=== PATIENT | female | born 1955 | race Caucasian/White ===

== ENCOUNTER 2018-01-13 01:00 | Outpatient (CLI) | payer BC, SELFPAY ==
--- NOTE | 2018-01-13 16:00 | DI.US_ITS ---
SYMPTOMS/DIAGNOSIS: NECK PROBLEM, M53.82, FAMILY H/O MARFAN SYNDROME, Z82.79, TINGLING IN RIGHT ARM, RIGHT NECK DISCOMFORT FEELS PULSATING CAROTID ULTRASOUND: There is mild bilateral intimal thickening. There is no significant plaque. No significant stenosis is visible. The velocity measurements are in the normal range. The vertebral arteries show antegrade flow. IMPRESSION: No significant internal carotid artery stenosis.
== END 2018-01-13 01:20 ==
PROVIDERS: PCP Family Medicine; Visit Provider Family Medicine
DX: M54.2 Cervicalgia (principal); M53.82 Other specified dorsopathies, cervical region; R20.2 Paresthesia of skin; Z82.79 Family history of other congenital malformations, deformations and chromosomal abnormalities
CPT/HCPCS: 93880

== ENCOUNTER 2018-04-17 17:11 | Emergency (ER) | payer BC, SELFPAY ==
[2018-04-17] VITALS (16 sets, daily range): BP systolic 130–147; BP diastolic 57–75; PULSE 60–92; RESP 1–26; O2SAT 96–100
--- NOTE | 2018-04-17 17:32 | DI.RAD_ITS ---
SYMPTOM/DIAGNOSIS: CHEST PAIN PA AND LATERAL CHEST: Comparison is made with 07/28/17. The heart size is normal. The aorta is normal in diameter. The lungs are mildly hyperinflated and there are mildly increased interstitial markings. No focal infiltrate, effusion or pulmonary edema is seen. Surgical clips are noted in the right upper quadrant. IMPRESSION: No acute abnormality.
[2018-04-17] MEDS: Mylanta Suspension 30 ML CUP (17:35)
[2018-04-17] MEDS: Lidocaine 2% Viscous 15 ML CUP (17:35)
--- NOTE | 2018-04-17 17:44 | ED.GENADUL_ITS ---
Medical Decision Making <Rodrick Greene DO - Last Filed: 04/18/18 08:17> This is a pleasant 63-year-old female with past medical history of asthma, and GERD who presents today for evaluation of reflux for the last 3 days worsening and culminating today, as well as asthma exacerbation for the last month, which she is on steroids as well as breathing treatments for at home. Patient has no history of cardiac disease, and she had a negative stress test this past summer. Results have been included. Her symptoms are nonexertional. She describes symptoms of severe burning sensation in her epigastric region, but an otherwise nontender abdomen. She also complains of burning all over her body, however there is no evidence of rash, lesions, or burn. We will treat with a GI cocktail as I do feel that there is a strong component of gastric ulcer involved here, however we will perform a cardiac workup to evaluate for a ny acute cardiac processes to the cause of her symptoms although I feel this very unlikely. Additionally the patient does have mild wheeze, and we will give breathing treatments here. She is already on steroids and so we will hold any additional steroids 7: 46pm Laboratory workup is benign, troponin within normal limits, white count normal, electrolytes normal, calcium is slightly low though, we will recommend outpatient calcium supplementation this may have caused the funny sensations that she is feeling. After GI cocktail the patient had complete resolution of her symptomatology for the burning sensation in her stomach and chest as well as her periphery. I feel her signs and symptoms are clinically consistent with a mild gastric ulcer. We will get a repeat troponin EKG, and if these are negative, I feel the patient be safely discharged home with close follow-up with a primary care provider. Signs and symptoms are inconsistent with a cardiac etiology at this time. Case will be signed out to my colleague Dr. Cale Sumner for final disposition and final evaluation of troponin EKG. EKG 17: 23 Rate 85, intervals normal, sinus rhythm, no ST elevations or depressions, no significant T wave inversions, no Q waves. <Cale Sumner MD - Last Filed: 04/17/18 21:04> Received signout from Dr. Greene. Repeat EKG reveals normal sinus rhythm, normal QRS, no ST segment elevation. Repeat troponin negative. Patient remains symptom-free. Likely GERD related to recent prednisone use. Discharge instructions as per Dr. Greene. She is improved and appropriate for discharge. HPI <Rodrick Greene, DO - Last Filed: 04/18/18 08:17> General Date/Time Provider Initiated Documentation: 04/17/18 17:22 . HPI Narrative: This is a 63-year-old female with a past medical history of multiple allergies, chronic kidney disease, asthma, who presents today for evaluation of a burning sensation/a [place] in my chest, as well as symptoms of I think my whole body is on fire. Of note the patient's body is definitely not on fire. She states that over the last month she has been dealing with an asthma exacerbation and is currently on oral steroids, and taking breathing treatments. This is been slowly improving, however today she noticed slightly worsening of her breathing, mild shortness of breath which she states is similar to her normal asthma. She denies any exertional component. Initially she does over the last 3 days she has had worsening of her regular reflux symptoms, culminating today with the calcaneal-like sensation in the center of her chest per the patient. She denies any arm neck or shoulder pain. She denies any chest heaviness. She denies any history of cardiac disease. She had a negative stress test this past summer. She denies any history of PE. Denies any other complaints at this time. No other modifying factors. Related Data Home Medications Medication Instructions Recorded Confirmed Probiotic 1 ea PO DAILY cap.sprink 07/24/15 04/17/18 multivitamin [Daily Multiple] 1 ea PO DAILY 07/24/15 04/17/18 omega-3 fatty acids-fish oil 1 ea PO DAILY 07/24/15 04/17/18 trazodone 50 mg PO DAILY tab-cap 07/24/15 04/17/18 Flovent HFA 2 puff INHALATION DAILY 01/19/16 04/17/18 fexofenadine [Renata Allergy] 180 mg PO DAILY 01/19/16 04/17/18 levalbuterol tartrate [Xopenex HFA] 2 puff INHALATION PRN PRN 01/19/16 04/17/18 turmeric root extract 1,000 mg PO DAILY 01/19/16 04/17/18 ondansetron 4 mg PO Q6H PRN #12 tabef 05/10/16 07/28/17 montelukast 10 mg PO DAILY 07/28/17 04/17/18 omeprazole 40 mg PO DAILY #30 cap 04/17/18 sucralfate [Carafate] 1 gm PO QACHS #30 tab 04/17/18 vitamin D3-vitamin K2 1 tab PO DAILY 04/17/18 04/17/18 Previous Rx's Medication Instructions Recorded ondansetron 4 mg PO Q6H PRN #12 tabef 05/10/16 omeprazole 40 mg PO DAILY #30 cap 04/17/18 sucralfate [Carafate] 1 gm PO QACHS #30 tab 04/17/18 Allergies Allergy/AdvReac Type Severity Reaction Status Date / Time tree and shrub pollen Allergy Unverified 04/17/18 18:40 gluten AdvReac Severe Swelling/Ed Verified 04/17/18 18:40 wilson lactase [From Dairy Aid] AdvReac Severe Swelling/Ed Verified 04/17/18 18:40 wilson soy AdvReac Severe Swelling/Ed Verified 04/17/18 18:40 wilson cigarette smoke AdvReac Mild Wheezing Verified 04/17/18 18:40 minerals [From Enviro Stress] AdvReac Mild Wheezing Verified 04/17/18 18:40 mold AdvReac Mild Wheezing Verified 04/17/18 18:40 Penicillins AdvReac Mild Skin Rash Verified 04/17/18 18:40 vitamin B complex and C AdvReac Mild Wheezing Verified 04/17/18 18:40 [From Enviro Stress] vitamin E (d-alpha AdvReac Mild Wheezing Verified 04/17/18 18:40 tocopherol) [From Enviro Stress] grass Allergy Uncoded 04/17/18 18:40 antidepressents AdvReac Severe Swelling/Ed Uncoded 04/17/18 18:40 wilson chocolate liquor/dark AdvReac Severe Anaphylaxsi Uncoded 04/17/18 18:40 s friuts seeds AdvReac Severe Swelling/Ed Uncoded 04/17/18 18:40 wilson leguimes AdvReac Severe Anaphylaxsi Uncoded 04/17/18 18:40 s muscle relaxaten AdvReac Severe Dizziness/L Uncoded 04/17/18 18:40 ightheade nuts AdvReac Severe Anaphylaxsi Uncoded 04/17/18 18:40 s peanuts AdvReac Severe Anaphylaxsi Uncoded 04/17/18 18:40 s pig meats AdvReac Severe Anaphylaxsi Uncoded 04/17/18 18:40 s pitted fruits AdvReac Severe Anaphylaxsi Uncoded 04/17/18 18:40 s seeds AdvReac Severe Swelling/Ed Uncoded 04/17/18 18:40 wilson smoked meats AdvReac Severe Anaphylaxsi Uncoded 04/17/18 18:40 s pain meds AdvReac Intermediate Nausea Uncoded 04/17/18 18:40 animals AdvReac Mild Wheezing Uncoded 04/17/18 18:40 dust AdvReac Mild Wheezing Uncoded 04/17/18 18:40 mildew AdvReac Mild Wheezing Uncoded 04/17/18 18:40 General Stated Complaint: Chest Pain HUBERT: 2 Review of Systems <Rodrick Greene - Last Filed: 04/18/18 08:17> Review of Systems All systems reviewed & are unremarkable except as noted in HPI and below PFSH <Rodrick Greene - Last Filed: 04/18/18 08:17> Social History Smoking and Tabacco status: Never Exam <Rodrickangela Greene - Last Filed: 04/18/18 08:17> Narrative Exam Narrative: 1.Const: Well-nourished, Well-developed, appearing stated age 2.Eyes: PERRL, no conjunctival injection, and symmetrical lids. 3.ENT: Atraumatic external nose and ears. Moist MM. Neck: Symmetric, trachea midline, No thyromegaly. 4.CVS: +S1/S2, No murmurs or gallops. Peripheral pulses 2+ and equal in all extremities. Brisk capillary refill in all extremities. 5.RESP: Unlabored respiratory effort. Mild wheeze bilaterally. No rhonchi or rales. 6.GI: Soft, Nontender/Nondistended, No hepatosplenomegaly. No guarding or rebound. 7.MSK: Normocephalic/Atraumatic, Extremities w/o deformity or ttp No cyanosis or clubbing, Normal movement of all extremities 8.Skin: Warm, Dry. No rashes or lesions. 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 Sensation grossly intact, no focal neurologic deficits. 10.Psych: (AAO) x3. Appropriate mood and affect Course <Rodrick Greene DO - Last Filed: 04/18/18 08:17> Vital Signs Pulse 60 04/17/18 17:21 Respiratory Rate 16 04/17/18 17:21 Pulse Oximetry 97 04/17/18 17:21 Pulse 60 04/17/18 17:21 Respiratory Rate 16 04/17/18 17:21 Pulse Oximetry 97 04/17/18 17:21 Oxygen Delivery Method Room Air 04/17/18 17:21 Oxygen Flow Rate 0 04/17/18 17:21 Sign Out <Rodrick Greene DO - Last Filed: 04/18/18 08:17> Sign Out Data: Sign Out Comment: Pending repeat troponin EKG and then dispo Last updated by Rodrick Greene DO at 04/17/18 20:01
[2018-04-17] MEDS: Albuterol 2.5 MG/3 ML INH SOLN VIAL (17:46)
[2018-04-17] MEDS: Normal Saline 1,000 ML 1000 ML IV (17:47)
[2018-04-17 18:15] LABS: Abs Immature Grans 0.07 k/cumm (0.0-0.09); Absolute Basophil Count 0.01 k/cumm (0.0-0.2); Absolute Lymphocyte Count 0.67 k/cumm (1.2-3.4); Absolute Monocyte Count 0.42 k/cumm (0.11-0.7); Absolute Neutrophil Count 5.55 k/cumm (1.2-6.7); Basophils % 0.1; HCT 36.3 % (36.0-46.0); Mean Corp. HGB Concentration 33.1 g/dL (32.0-36.0); Mean Corpuscular Hemoglobin 29.9 pg (27.0-33.0); Mean Corpuscular Volume 90.5 fL (80-95); Mean Platelet Volume 10.7 fL (8.0-11.0); Monocytes % 6.3; Neutrophils % 82.6; Platelet Count 220 x1000/uL (130-400); RBC 4.01 m/cumm (4.00-5.20); RBC Distribution Width 14.1 % (11.7-14.6); White Blood Cell Count 6.72 k/cumm (4.4-10.8)
[2018-04-17 18:37] LABS: ALT 26 U/L (12-78); AST 17 U/L (15-37); Albumin 2.9 g/dL (3.4-5.0); Alkaline Phosphatase 69 U/L (46-116); Anion Gap 10.1 mmol/L (3-11); BUN 20 mg/dL (7-18); Bilirubin, Total 0.2 mg/dL (0.2-1.0); CO2 25.9 mmol/L (21.0-32.0); CREATININE 1.25 mg/dL (0.55-1.02); Calcium 8.3 mg/dL (8.5-10.1); Chloride 105 mmol/L (98-107); Estimated GFR 43.43 (mL/min/1.73m2); Glucose 129 mg/dL (70-100); Sodium 141 mmol/L (136-145); TSH (W/Ref FT4) 0.55 uIU/mL (0.358-3.74); Troponin I 0.03 ng/mL (0.00-0.06)
--- NOTE | 2018-04-17 19:00 | DI.VRAD_ITS ---
EXAM: XR Chest, 2 Views EXAM DATE/TIME: 04/17/2018 5:34 PM CLINICAL HISTORY: 63 years old, female; Signs and symptoms; Other: Chest pain, gerd TECHNIQUE: XR of the chest, 2 views. COMPARISON: CR CHEST 2 VIEWS PA,LAT 07/28/2017 3:31 PM FINDINGS: Lungs: Mild hyperinflation with no airspace consolidation. Pleural space: No pleural effusion. No pneumothorax. Heart/Mediastinum: No cardiomegaly. Upper abdomen: Right upper quadrant clips, probable cholecystectomy. Bones/joints: No acute fracture. IMPRESSION: Mild hyperinflation with no airspace consolidation. Dictated and Authenticated by: Zita Cummins MD. Ordering:PARAG Mensah MD
[2018-04-17 20:44] LABS: Troponin I < 0.02 ng/mL (0.00-0.06)
[2018-04-17] MEDS: Sucralfate 1 GM TAB PO (21:12)
== END 2018-04-17 21:15 | disposition home or self-care (01) ==
PROVIDERS: Student in an Organized Health Care Education/Training Program; Emergency Provider Emergency Medicine; PCP Family Medicine
DX: J45.901 Unspecified asthma with (acute) exacerbation (principal); K21.9 Gastro-esophageal reflux disease without esophagitis; R07.9 Chest pain, unspecified
CPT/HCPCS: 36415; 80053; 93005; 96360; 99285; 71046; 83735; 84443; 84484; 85025; 93010; J7613

== ENCOUNTER 2018-04-28 14:17 | Emergency (ER) | payer BC, SELFPAY ==
[2018-04-28 14:23] VITALS: BP 143/70; PULSE 108; RESP 24; TEMP 36.6; O2SAT 100
--- NOTE | 2018-04-28 14:37 | W.ED.GENAD ---
Discharge Plan Disposition Patient Disposition: HOME Condition: Improving Discharge Details Chief Complaint: Nausea/Vomit/Diar Clinical Impression: Gastroenteritis Primary Care Provider: Kaylene Pinedo V ED Provider: Cale Sumner Home Meds and New Rx's Prescriptions: New ondansetron HCl [Zofran] 4 mg tablet 4 mg PO QID PRN (Reason: nausea and vomiting) Qty: 10 RF: 0 Continued multivitamin [Daily Multiple] 1 EACH tablet 1 ea PO DAILY RF: 0 trazodone 50 MG tablet 50 mg PO DAILY RF: 0 omega-3 fatty acids-fish oil 1 EACH capsule 1 ea PO DAILY RF: 0 fexofenadine [Renata Allergy] 180 MG tablet 180 mg PO DAILY RF: 0 levalbuterol tartrate [Xopenex HFA] 200 PUFF HFA aerosol inhaler 2 puff Inhalation PRN PRNRF: 0 turmeric root extract 500 MG capsule 1,000 mg PO DAILY RF: 0 vitamin D3-vitamin K2 5,500-200 unit-mcg Tablet 1 tab PO DAILY RF: 0 sucralfate [Carafate] 1 gram tablet 1 gm PO QACHS Qty: 30 RF: 0 omeprazole 40 mg capsule,delayed release(DR/EC) 40 mg PO DAILY Qty: 30 RF: 0 prednisone 10 mg Tablet 10 mg PO DAILY RF: 0 Symbicort 160-4.5 mcg/actuation Hfa Aerosol Inhaler 2 puff INHALATION BID RF: 0 Spiriva Respimat 2.5 mcg/actuation Mist 2 puff INHALATION DAILY RF: 0 montelukast 10 MG tablet 10 mg PO DAILY RF: 0 Discharge Instructions Instructions: Gastroenteritis (ED) Additional Instructions: Small, frequent sips of fluids to maintain hydration. Zofran, as prescribed, as needed for nausea. Return if you develop a fever, increasing discomfort, or any other acute concern Follow-up with regular doctor if not improving in 5 days time. Discharge Data Discharge Date/Time-TO BE ENTERED AT DEPARTURE: 04/28/18 16:56 Medical Decision Making 63-year-old female presents from home with numerous episodes of nonbilious, nonbloody emesis at home this morning associated with intermittent cramping left lower quadrant abdominal pain. She is afebrile and well-appearing, slightly dehydrated in appearance. She has had minimal left lower quadrant abdominal tenderness. Differential diagnosis includes gastroenteritis, colitis, enteritis, diverticulitis. IV placed, patient given fluids and antiemetic. Referred for laboratory testing and CT scan. Labs reveal elevated white blood cell count of 13, mild hypokalemia of 3.2. Mild dehydration with BUN [address] reveals evidence of enteritis and colitis, no evidence of abscess or bowel obstruction. Lab Data Lab results reviewed: Yes I reviewed the patient's lab results. Laboratory Results - last 24 hr 04/28/18 04/28/18 04/28/18 14:33 14:33 14:33 WBC 13.73 H RBC 4.84 Hgb 14.5 Hct 43.7 MCV 90.3 MCH 30.0 MCHC 33.2 RDW 14.5 Plt Count 236 MPV 11.3 H Immature Gran % 0.8 Neutrophils % 85.4 Lymphocytes % 8.0 Monocytes % 4.7 Eosinophils % 1.0 Basophils % 0.1 Absolute Neutrophils 11.73 H Absolute Lymphocytes 1.10 L Absolute Monocytes 0.65 Absolute Eosinophils 0.14 Absolute Basophils 0.01 Sodium 141 Potassium 3.2 L Chloride 102 Carbon Dioxide 27.9 Anion Gap 11.1 H BUN 24 H Creatinine 1.38 H Estimated GFR/1.73 m2 38.74 Glucose 135 H Calcium 9.1 Magnesium 2.0 Total Bilirubin 0.9 AST 19 ALT 29 Alkaline Phosphatase 83 Troponin I < 0.02 Total Protein 7.4 Albumin 4.0 Lipase 177 HPI General Mode of arrival: ambulatory. Date/Time Provider Initiated Documentation: 04/28/18 14:18. Limitations to Documentation: no limitations. Information obtained by: patient. History of Present Illness 63 year old F presents to the emergency department with the chief complaint of Nausea and vomiting times, described as moderate, Quality is described as other (Cramping), and is localized to the abdomen. Patient reports no radiation. Patient started experiencing this hour(s) and it has been intermittent. No relieving factors improve symptom(s), No exacerbating factors reported . Patient notes loss of appetite and nausea/vomiting; denies fever/chills. Patient did receive the following treatments prior to arrival, none Related Data Home Medications Medication Instructions Recorded Confirmed multivitamin [Daily Multiple] 1 ea PO DAILY 07/24/15 04/28/18 omega-3 fatty acids-fish oil 1 ea PO DAILY 07/24/15 04/28/18 trazodone 50 mg PO DAILY tab-cap 07/24/15 04/28/18 fexofenadine [Renata Allergy] 180 mg PO DAILY 01/19/16 04/28/18 levalbuterol tartrate [Xopenex HFA] 2 puff INHALATION PRN PRN 01/19/16 04/28/18 turmeric root extract 1,000 mg PO DAILY 01/19/16 04/28/18 montelukast 10 mg PO DAILY 07/28/17 04/28/18 omeprazole 40 mg PO DAILY #30 cap 04/17/18 04/28/18 sucralfate [Carafate] 1 gm PO QACHS #30 tab 04/17/18 04/28/18 vitamin D3-vitamin K2 1 tab PO DAILY 04/17/18 04/28/18 Spiriva Respimat 2 puff INHALATION DAILY 04/28/18 04/28/18 Symbicort 2 puff INHALATION BID 04/28/18 04/28/18 ondansetron HCl [Zofran] 4 mg PO QID PRN #10 tab 04/28/18 prednisone 10 mg PO DAILY 04/28/18 04/28/18 Previous Rx's Medication Instructions Recorded omeprazole 40 mg PO DAILY #30 cap 04/17/18 sucralfate [Carafate] 1 gm PO QACHS #30 tab 04/17/18 ondansetron HCl [Zofran] 4 mg PO QID PRN #10 tab 04/28/18 Allergies Allergy/AdvReac Type Severity Reaction Status Date / Time tree and shrub pollen Allergy Unverified 04/28/18 14:44 gluten AdvReac Severe Swelling/Ed Verified 04/28/18 14:44 wilson lactase [From Dairy Aid] AdvReac Severe Swelling/Ed Verified 04/28/18 14:44 wilson soy AdvReac Severe Swelling/Ed Verified 04/28/18 14:44 wilson cigarette smoke AdvReac Mild Wheezing Verified 04/28/18 14:44 minerals [From Enviro Stress] AdvReac Mild Wheezing Verified 04/28/18 14:44 mold AdvReac Mild Wheezing Verified 04/28/18 14:44 Penicillins AdvReac Mild Skin Rash Verified 04/28/18 14:44 vitamin B complex and C AdvReac Mild Wheezing Verified 04/28/18 14:44 [From Enviro Stress] vitamin E (d-alpha AdvReac Mild Wheezing Verified 04/28/18 14:44 tocopherol) [From Enviro Stress] grass Allergy Uncoded 04/28/18 14:44 antidepressents AdvReac Severe Swelling/Ed Uncoded 04/28/18 14:44 wilson chocolate liquor/dark AdvReac Severe Anaphylaxsi Uncoded 04/28/18 14:44 s friuts seeds AdvReac Severe Swelling/Ed Uncoded 04/28/18 14:44 wilson leguimes AdvReac Severe Anaphylaxsi Uncoded 04/28/18 14:44 s muscle relaxaten AdvReac Severe Dizziness/L Uncoded 04/28/18 14:44 ightheade nuts AdvReac Severe Anaphylaxsi Uncoded 04/28/18 14:44 s peanuts AdvReac Severe Anaphylaxsi Uncoded 04/28/18 14:44 s pig meats AdvReac Severe Anaphylaxsi Uncoded 04/28/18 14:44 s pitted fruits AdvReac Severe Anaphylaxsi Uncoded 04/28/18 14:44 s seeds AdvReac Severe Swelling/Ed Uncoded 04/28/18 14:44 wilson smoked meats AdvReac Severe Anaphylaxsi Uncoded 04/28/18 14:44 s pain meds AdvReac Intermediate Nausea Uncoded 04/28/18 14:44 animals AdvReac Mild Wheezing Uncoded 04/28/18 14:44 dust AdvReac Mild Wheezing Uncoded 04/28/18 14:44 mildew AdvReac Mild Wheezing Uncoded 04/28/18 14:44 General Stated Complaint: Nausea/Vomit/Diar HUBERT: 3 Review of Systems Review of Systems 6 systems reviewed and otherwise negative [facility] Social History Smoking and Tabacco status: Never Exam Narrative Exam Narrative: GEN: awake, alert, oriented 3. Pleasant, well groomed, interactive. HEAD: Normocephalic, atraumatic ENT: Mucous membranes dry, oropharynx unremarkable, External ear exam unremarkable EYES: PERRL, EOMI NECK: Full ROM, no PIYUSH, no menigismus CHEST/RESP: Nontender, clear to auscultation bilateral, no wheeze/rhonchi/rales CARDIOVASCULAR: RRR, no murmur, rub jeana. 2+ Rad pulse bilateral ABDOMEN: Soft, discrete tenderness left lower quadrant without rebound or guarding, no mass. +Bowel sounds. EXT: Full ROM, no edema, no rash Neuro: Grossly normal neurologic exam, conversant, interactive. Psych: Speech fluent, thoughts congruent, affect normal Course Vital Signs Temperature 36.6 C 04/28/18 14:23 Pulse 108 H 04/28/18 14:23 Respiratory Rate 24 04/28/18 14:23 Blood Pressure 143/70 H 04/28/18 14:23 Pulse Oximetry 100 04/28/18 14:23 Temperature 36.6 C 04/28/18 14:23 Temperature Source Temporal Artery Scan 04/28/18 14:23 Pulse 108 H 04/28/18 14:23 Respiratory Rate 24 04/28/18 14:23 Blood Pressure 143/70 H 04/28/18 14:23 Blood Pressure Position Sitting 04/28/18 14:23 Pulse Oximetry 100 04/28/18 14:23 Oxygen Delivery Method Room Air 04/28/18 14:23 Oxygen Flow Rate 0 04/28/18 14:23 Pain Level 7 04/28/18 14:23
[2018-04-28] MEDS: Ondansetron 4 MG/2 ML VIAL IVP (14:40)
[2018-04-28] MEDS: Normal Saline 1,000 ML 1000 ML IV (14:40)
[2018-04-28 14:49] LABS: Abs Immature Grans 0.11 k/cumm (0.0-0.09); Absolute Eosinophil Count 0.14 k/cumm (0.0-0.7); Absolute Monocyte Count 0.65 k/cumm (0.11-0.7); Basophils % 0.1; HCT 43.7 % (36.0-46.0); HGB 14.5 g/dL (12.0-15.5); Immature Grans % 0.8; Mean Corp. HGB Concentration 33.2 g/dL (32.0-36.0); Mean Corpuscular Volume 90.3 fL (80-95); Mean Platelet Volume 11.3 fL (8.0-11.0); Monocytes % 4.7; Neutrophils % 85.4; Platelet Count 236 x1000/uL (130-400); RBC 4.84 m/cumm (4.00-5.20); RBC Distribution Width 14.5 % (11.7-14.6); White Blood Cell Count 13.73 k/cumm (4.4-10.8)
[2018-04-28 14:53] VITALS: TEMP 36.8
[2018-04-28 14:53] LABS: Absolute Basophil Count 0.01 k/cumm (0.0-0.2); Absolute Neutrophil Count 11.73 k/cumm (1.2-6.7)
[2018-04-28 14:56] LABS: Lipase 177 U/L (73-393)
--- NOTE | 2018-04-28 14:56 | DI.CT_ITS ---
SYMPTOMS/DIAGNOSIS: LEFT LOWER QUADRANT PAIN, VOMITING CT SCAN OF THE ABDOMEN AND PELVIS: Noncontrast examination was performed. No acute findings are seen in the lung bases. There is a moderate hiatal hernia. The noncontrast examination does limit examination of the abdominal and pelvic organs. The unenhanced liver, spleen, pancreas and adrenal glands are unremarkable. The patient is status post cholecystectomy. No biliary ductal dilatation is seen. There is no nephrolithiasis or hydronephrosis. There is again seen a hypodense lesion in the mid pole of the right kidney, most suggestive of a cyst. The urinary bladder is intact. The reproductive organs are unremarkable as visualized. The abdominal aorta is of normal caliber with mild atherosclerosis. There are mildly dilated loops of small bowel in the left abdomen with a question of mild bowel wall thickening. This may represent an ileus or mild enteritis. There is a moderate amount of stool in the colon, particularly the rectosigmoid colon. There is mild thickening of the wall at the rectosigmoid junction and mild increased attenuation in the surrounding fat and inflammatory infectious colitis should be considered. No evidence of abdominal or pelvic adenopathy, ascites or pneumoperitoneum is present. Degenerative changes are seen in the spine. IMPRESSION: 1. Findings suspicious for an inflammatory infectious colitis at the rectosigmoid junction. 2. Ileus versus a mild enteritis involving the small bowel in the left upper quadrant. The findings were discussed with Dr. Sumner of the Emergency Department on the date of the examination.
[2018-04-28 15:05] LABS: ALT 29 U/L (12-78); AST 19 U/L (15-37); Alkaline Phosphatase 83 U/L (46-116); Anion Gap 11.1 mmol/L (3-11); BUN 24 mg/dL (7-18); Bilirubin, Total 0.9 mg/dL (0.2-1.0); CO2 27.9 mmol/L (21.0-32.0); CREATININE 1.38 mg/dL (0.55-1.02); Calcium 9.1 mg/dL (8.5-10.1); Chloride 102 mmol/L (98-107); Estimated GFR 38.74 (mL/min/1.73m2); Glucose 135 mg/dL (70-100); Potassium 3.2 mmol/L (3.5-5.1); Sodium 141 mmol/L (136-145); Total Protein 7.4 g/dL (6.4-8.2); Troponin I < 0.02 ng/mL (0.00-0.06)
[2018-04-28 15:08] LABS: Bilirubin Negative (Negative); Blood Trace-intact (Negative); Clarity Clear; Glucose Negative (Negative); Ketones 15 mg/dL (Negative); Leukocyte Esterase Negative (Negative); Nitrite Negative (Negative); Specific Gravity 1.015 (1.005-1.025); Urobilinogen 0.2 EU/dL (Up TO 0.2); pH 8.5 (5-8)
[2018-04-28 15:21] LABS: Epithelial Cells Many HPF (Negative)
[2018-04-28 15:22] LABS: WBC 0-2 HPF (0-5)
[2018-04-28 15:23] LABS: Bacteria Negative HPF (Negative); C & S Indicated? No; Casts Negative LPF (Negative); Crystals Negative HPF (Negative); Mucus Negative (Negative)
[2018-04-28 16:49] VITALS: BP 135/66; PULSE 88; RESP 12; TEMP 37.8; O2SAT 99
== END 2018-04-28 16:56 | disposition home or self-care (01) ==
PROVIDERS: Emergency Provider Emergency Medicine; PCP Family Medicine
DX: K52.9 Noninfective gastroenteritis and colitis, unspecified (principal)
CPT/HCPCS: 36415; 80053; 83690; 96361; 96374; 99284; 74176; 81003; 81015; 83735; 84484; 85025; 99283; J2405

== ENCOUNTER 2018-05-13 17:06 | Outpatient (REF) | payer BC, SELFPAY ==
[2018-05-13 20:37] LABS: Abs Immature Grans 0.01 k/cumm (0.0-0.09); Absolute Basophil Count 0.04 k/cumm (0.0-0.2); Absolute Eosinophil Count 0.17 k/cumm (0.0-0.7); Absolute Lymphocyte Count 1.73 k/cumm (1.2-3.4); Absolute Monocyte Count 0.63 k/cumm (0.11-0.7); Absolute Neutrophil Count 2.25 k/cumm (1.2-6.7); Basophils % 0.8; Eosinophils % 3.5; HCT 37.8 % (36.0-46.0); HGB 12.5 g/dL (12.0-15.5); Immature Grans % 0.2; Lymphocytes % 35.8; Mean Corp. HGB Concentration 33.1 g/dL (32.0-36.0); Mean Corpuscular Hemoglobin 29.7 pg (27.0-33.0); Mean Corpuscular Volume 89.8 fL (80-95); Neutrophils % 46.7; Platelet Count 207 x1000/uL (130-400); RBC 4.21 m/cumm (4.00-5.20); RBC Distribution Width 13.5 % (11.7-14.6); White Blood Cell Count 4.83 k/cumm (4.4-10.8)
[2018-05-13 21:50] LABS: ALT 27 U/L (12-78); AST 18 U/L (15-37); Albumin 3.6 g/dL (3.4-5.0); Alkaline Phosphatase 74 U/L (46-116); Anion Gap 13.8 mmol/L (3-11); BUN 17 mg/dL (7-18); Bilirubin, Total 0.5 mg/dL (0.2-1.0); CO2 22.2 mmol/L (21.0-32.0); CREATININE 1.26 mg/dL (0.55-1.02); Chloride 107 mmol/L (98-107); Estimated GFR 43.03 (mL/min/1.73m2); Glucose 83 mg/dL (70-100); Potassium 3.4 mmol/L (3.5-5.1); Sodium 143 mmol/L (136-145); Total Protein 6.3 g/dL (6.4-8.2)
== END 2018-05-13 17:26 ==
LOC: NCHCN 17:06
PROVIDERS: PCP Family Medicine; Visit Provider Physician Assistant Medical
DX: R19.7 Diarrhea, unspecified (principal)
CPT/HCPCS: 80053; 85025

== ENCOUNTER 2018-05-21 21:00 | Outpatient (REF) | payer BC, SELFPAY ==
[2018-05-26 12:18] LABS: Helicobacter pylori Ag, Feces Negative (NEGAT)
== END 2018-05-21 21:20 ==
LOC: NCHCN 21:00
PROVIDERS: PCP Family Medicine; Visit Provider Physician Assistant Medical
DX: K21.9 Gastro-esophageal reflux disease without esophagitis (principal)
CPT/HCPCS: 87338

== ENCOUNTER 2018-06-23 00:51 | Outpatient (CLI) | payer BC, SELFPAY ==
--- NOTE | 2018-06-23 08:45 | DI.NM_ITS ---
SYMPTOMS/DIAGNOSIS: RIGHT LOWER QUADRANT PAIN, R10.31, R10.32, GASTROINTESTINAL HEMORRHAGE, K92.2, GASTROESOPHAGEAL REFLUX DISEASE, K21.9 GASTRIC EMPTYING EXAMINATION: The patient received 1.0 mCi of technetium labelled sulfur colloid in eggs according to protocol. Examination was performed according to protocol. At one hour, the residual was 79.7%. At two hours, gastric residual was 28.1%. At four hours, gastric residual was 2.4%. These are within normal limits. IMPRESSION: Normal gastric emptying examination.
== END 2018-06-23 01:11 ==
PROVIDERS: PCP Family Medicine; Visit Provider Internal Medicine Gastroenterology
DX: R10.31 Right lower quadrant pain (principal); K92.2 Gastrointestinal hemorrhage, unspecified; K21.9 Gastro-esophageal reflux disease without esophagitis
CPT/HCPCS: 78265

== ENCOUNTER 2018-07-22 16:04 | Emergency (ER) | payer BC, SELFPAY ==
[2018-07-22 16:23] VITALS: BP 142/66; PULSE 70; RESP 16; TEMP 36.6; O2SAT 100
--- NOTE | 2018-07-22 16:28 | DI.RAD_ITS ---
SYMPTOM/DIAGNOSIS: PAIN, S/P STUBBING HER TOE LEFT FOOT: Three views. Comparison 05/10/16 There is a nondisplaced fracture involving the neck of the proximal phalanx of the left 5th toe. There is slight dorsal angulation of the fracture seen on the lateral view. No other fracture or dislocation is seen. There is soft tissue swelling of the left 5th toe IMPRESSION: Nondisplaced fracture involving the proximal phalanx of the left 5th toe. The findings were discussed with Dr. Herron at 10 a.m. on 07/23/18
--- NOTE | 2018-07-22 16:30 | W.ED.GENAD ---
Discharge Plan Disposition Patient Disposition: HOME Condition: Stable Discharge Details Chief Complaint: Orthopedic Clinical Impression: Contusion of fifth toe, right Primary Care Provider: Kaylene Pinedo V ED Provider: Lonnie Herron Home Meds and New Rx's Prescriptions: No Action multivitamin [Daily Multiple] 1 EACH tablet 1 ea PO DAILY RF: 0 trazodone 50 MG tablet 50 mg PO DAILY RF: 0 omega-3 fatty acids-fish oil 1 EACH capsule 1 ea PO DAILY RF: 0 fexofenadine [Renata Allergy] 180 MG tablet 180 mg PO DAILY RF: 0 levalbuterol tartrate [Xopenex HFA] 200 PUFF HFA aerosol inhaler 2 puff Inhalation PRN PRNRF: 0 turmeric root extract 500 MG capsule 1,000 mg PO DAILY RF: 0 vitamin D3-vitamin K2 5,500-200 unit-mcg Tablet 1 tab PO DAILY RF: 0 sucralfate [Carafate] 1 gram tablet 1 gm PO QACHS Qty: 30 RF: 0 omeprazole 40 mg capsule,delayed release(DR/EC) 40 mg PO DAILY Qty: 30 RF: 0 prednisone 10 mg Tablet 10 mg PO DAILY RF: 0 Symbicort 160-4.5 mcg/actuation Hfa Aerosol Inhaler 2 puff INHALATION BID RF: 0 Spiriva Respimat 2.5 mcg/actuation Mist 2 puff INHALATION DAILY RF: 0 ondansetron HCl [Zofran] 4 mg tablet 4 mg PO QID PRN (Reason: nausea and vomiting) Qty: 10 RF: 0 montelukast 10 MG tablet 10 mg PO DAILY RF: 0 Discharge Instructions Instructions: Foot Contusion (ED) Medical Decision Making Pt states she hit her right foot on a table earlier and has pain with swelling of the right little toe. Denies loc or hitting head. NO pain in ankle or mid foot. Will xray to eval for fx xray negative, no new pain, will /dc home Differential Diagnosis sprain, strain, contusion, fx Imaging Data Radiologic Study: Attestation: I personally reviewed and interpreted this imaging study as follows: Imaging: X-Ray Radiologist's impression: IMPRESSION: No acute fracture HPI General Mode of arrival: ambulatory. Date/Time Provider Initiated Documentation: 07/22/18 16:25. Limitations to Documentation: no limitations. Information obtained by: patient. History of Present Illness 63 year old F presents to the emergency department with the chief complaint of right little toe pain, described as moderate, Quality is described as aching, and is localized to the right and lower extremity. Patient reports no radiation. Patient started experiencing this hour(s) (1) and it has been constant. Rest improves symptom(s), Movement worsens symptoms . Patient notes no other symptoms.. Patient did receive the following treatments prior to arrival, none Related Data Home Medications Medication Instructions Recorded Confirmed multivitamin [Daily Multiple] 1 ea PO DAILY 07/24/15 07/22/18 omega-3 fatty acids-fish oil 1 ea PO DAILY 07/24/15 07/22/18 trazodone 50 mg PO DAILY tab-cap 07/24/15 07/22/18 fexofenadine [Renata Allergy] 180 mg PO DAILY 01/19/16 07/22/18 levalbuterol tartrate [Xopenex HFA] 2 puff INHALATION PRN PRN 01/19/16 07/22/18 turmeric root extract 1,000 mg PO DAILY 01/19/16 07/22/18 montelukast 10 mg PO DAILY 07/28/17 07/22/18 omeprazole 40 mg PO DAILY #30 cap 04/17/18 07/22/18 sucralfate [Carafate] 1 gm PO QACHS #30 tab 04/17/18 07/22/18 vitamin D3-vitamin K2 1 tab PO DAILY 04/17/18 07/22/18 Spiriva Respimat 2 puff INHALATION DAILY 04/28/18 07/22/18 Symbicort 2 puff INHALATION BID 04/28/18 07/22/18 ondansetron HCl [Zofran] 4 mg PO QID PRN #10 tab 04/28/18 07/22/18 prednisone 10 mg PO DAILY 04/28/18 07/22/18 Previous Rx's Medication Instructions Recorded omeprazole 40 mg PO DAILY #30 cap 04/17/18 sucralfate [Carafate] 1 gm PO QACHS #30 tab 04/17/18 ondansetron HCl [Zofran] 4 mg PO QID PRN #10 tab 04/28/18 Allergies Allergy/AdvReac Type Severity Reaction Status Date / Time tree and shrub pollen Allergy Unverified 07/22/18 16:25 gluten AdvReac Severe Swelling/Ed Verified 07/22/18 16:25 wilson lactase [From Dairy Aid] AdvReac Severe Swelling/Ed Verified 07/22/18 16:25 wilson soy AdvReac Severe Swelling/Ed Verified 07/22/18 16:25 wilson cigarette smoke AdvReac Mild Wheezing Verified 07/22/18 16:25 minerals [From Enviro Stress] AdvReac Mild Wheezing Verified 07/22/18 16:25 mold AdvReac Mild Wheezing Verified 07/22/18 16:25 Penicillins AdvReac Mild Skin Rash Verified 07/22/18 16:25 vitamin B complex and C AdvReac Mild Wheezing Verified 07/22/18 16:25 [From Enviro Stress] vitamin E (d-alpha AdvReac Mild Wheezing Verified 07/22/18 16:25 tocopherol) [From Enviro Stress] grass Allergy Uncoded 07/22/18 16:25 antidepressents AdvReac Severe Swelling/Ed Uncoded 07/22/18 16:25 wilson chocolate liquor/dark AdvReac Severe Anaphylaxsi Uncoded 07/22/18 16:25 s friuts seeds AdvReac Severe Swelling/Ed Uncoded 07/22/18 16:25 wilson leguimes AdvReac Severe Anaphylaxsi Uncoded 07/22/18 16:25 s muscle relaxaten AdvReac Severe Dizziness/L Uncoded 07/22/18 16:25 ightheade nuts AdvReac Severe Anaphylaxsi Uncoded 07/22/18 16:25 s peanuts AdvReac Severe Anaphylaxsi Uncoded 07/22/18 16:25 s pig meats AdvReac Severe Anaphylaxsi Uncoded 07/22/18 16:25 s pitted fruits AdvReac Severe Anaphylaxsi Uncoded 07/22/18 16:25 s seeds AdvReac Severe Swelling/Ed Uncoded 07/22/18 16:25 wilson smoked meats AdvReac Severe Anaphylaxsi Uncoded 07/22/18 16:25 s pain meds AdvReac Intermediate Nausea Uncoded 07/22/18 16:25 animals AdvReac Mild Wheezing Uncoded 07/22/18 16:25 dust AdvReac Mild Wheezing Uncoded 07/22/18 16:25 mildew AdvReac Mild Wheezing Uncoded 07/22/18 16:25 General Stated Complaint: Orthopedic HUBERT: 4 Review of Systems Review of Systems All systems reviewed & are unremarkable except as noted in HPI and below Constitutional Denies chills, Denies fever(s) and Denies weakness Cardiovascular Denies chest pain and Denies dyspnea Respiratory Denies cough and Denies dyspnea Gastrointestinal Denies abdominal pain, Denies nausea and Denies vomiting Genitourinary Denies dysuria Musculoskeletal Denies joint swelling Integumentary/Breasts Denies rash Neurologic Denies weakness [facility] Social History Smoking/Tobacco Use Status: Never Drug use: Never Do you feel safe in your relationship?: Yes Exam Const General: no acute distress Orientation: alert HENMT Head: normal to inspection Ears: external ears normal General nose exam: external nose normal Mouth: moist mucous membranes Eyes General: appearance normal, both eyes and all related structures Neck Neck: normal visual inspection Resp Effort & Inspection: normal respiratory effort and able to speak in complete sentences Cardio Rate: regular rate Skin General skin exam: no rashes or lesions noted Neuro General: alert and oriented x3 Extrem General: normal capillary refill Psych Mental Status: mental status grossly normal Course Vital Signs Temperature 36.6 C 07/22/18 16:23 Pulse 70 07/22/18 16:23 Respiratory Rate 16 07/22/18 16:23 Blood Pressure 142/66 H 07/22/18 16:23 Pulse Oximetry 100 07/22/18 16:23 Temperature 36.6 C 07/22/18 16:23 Temperature Source Skin 07/22/18 16:23 Pulse 70 07/22/18 16:23 Respiratory Rate 16 07/22/18 16:23 Respiratory Effort 07/22/18 16:23 Blood Pressure 142/66 H 07/22/18 16:23 Blood Pressure Position Sitting 07/22/18 16:23 Pulse Oximetry 100 07/22/18 16:23 Oxygen Delivery Method Room Air 07/22/18 16:23 Oxygen Flow Rate 0 07/22/18 16:23 Pain Level 5 07/22/18 16:23
--- NOTE | 2018-07-22 16:35 | ED.GENADUL_ITS ---
Discharge Plan Disposition Patient Disposition: HOME Condition: Stable Discharge Details Chief Complaint: Orthopedic Clinical Impression: Contusion of fifth toe, right Primary Care Provider: Kaylene Pinedo V ED Provider: Lonnie Herron Home Meds and New Rx's Prescriptions: No Action multivitamin [Daily Multiple] 1 EACH tablet 1 ea PO DAILY RF: 0 trazodone 50 MG tablet 50 mg PO DAILY RF: 0 omega-3 fatty acids-fish oil 1 EACH capsule 1 ea PO DAILY RF: 0 fexofenadine [Renata Allergy] 180 MG tablet 180 mg PO DAILY RF: 0 levalbuterol tartrate [Xopenex HFA] 200 PUFF HFA aerosol inhaler 2 puff Inhalation PRN PRNRF: 0 turmeric root extract 500 MG capsule 1,000 mg PO DAILY RF: 0 vitamin D3-vitamin K2 5,500-200 unit-mcg Tablet 1 tab PO DAILY RF: 0 sucralfate [Carafate] 1 gram tablet 1 gm PO QACHS Qty: 30 RF: 0 omeprazole 40 mg capsule,delayed release(DR/EC) 40 mg PO DAILY Qty: 30 RF: 0 prednisone 10 mg Tablet 10 mg PO DAILY RF: 0 Symbicort 160-4.5 mcg/actuation Hfa Aerosol Inhaler 2 puff INHALATION BID RF: 0 Spiriva Respimat 2.5 mcg/actuation Mist 2 puff INHALATION DAILY RF: 0 ondansetron HCl [Zofran] 4 mg tablet 4 mg PO QID PRN (Reason: nausea and vomiting) Qty: 10 RF: 0 montelukast 10 MG tablet 10 mg PO DAILY RF: 0 Discharge Instructions Instructions: Foot Contusion (ED) Medical Decision Making Pt states she hit her right foot on a table earlier and has pain with swelling of the right little toe. Denies loc or hitting head. NO pain in ankle or mid foot. Will xray to eval for fx xray negative, no new pain, will /dc home Differential Diagnosis sprain, strain, contusion, fx Imaging Data Radiologic Study: Attestation: I personally reviewed and interpreted this imaging study as f nirav: Imaging: X-Ray Radiologist's impression: IMPRESSION: No acute fracture HPI General Mode of arrival: ambulatory . Date/Time Provider Initiated Documentation: 07/22/18 16:25 . Limitations to Documentation: no limitations . Information obtained by: patient . History of Present Illness 63 year old F presents to the emergency department with the chief complaint of right little toe pain, described as moderate, Quality is described as aching, and is localized to the right and lower extremity. Patient reports no radiation. Patient started experiencing this hour(s) (1) and it has been constant. Rest improves symptom(s), Movement worsens symptoms . Patient notes no other symptoms.. Patient did receive the following treatments prior to arrival, none Related Data Home Medications Medication Instructions Recorded Confirmed multivitamin [Daily Multiple] 1 ea PO DAILY 07/24/15 07/22/18 omega-3 fatty acids-fish oil 1 ea PO DAILY 07/24/15 07/22/18 trazodone 50 mg PO DAILY tab-cap 07/24/15 07/22/18 fexofenadine [Renata Allergy] 180 mg PO DAILY 01/19/16 07/22/18 levalbuterol tartrate [Xopenex HFA] 2 puff INHALATION PRN PRN 01/19/16 07/22/18 turmeric root extract 1,000 mg PO DAILY 01/19/16 07/22/18 montelukast 10 mg PO DAILY 07/28/17 07/22/18 omeprazole 40 mg PO DAILY #30 cap 04/17/18 07/22/18 sucralfate [Carafate] 1 gm PO QACHS #30 tab 04/17/18 07/22/18 vitamin D3-vitamin K2 1 tab PO DAILY 04/17/18 07/22/18 Spiriva Respimat 2 puff INHALATION DAILY 04/28/18 07/22/18 Symbicort 2 puff INHALATION BID 04/28/18 07/22/18 ondansetron HCl [Zofran] 4 mg PO QID PRN #10 tab 04/28/18 07/22/18 prednisone 10 mg PO DAILY 04/28/18 07/22/18 Previous Rx's Medication Instructions Recorded omeprazole 40 mg PO DAILY #30 cap 04/17/18 sucralfate [Carafate] 1 gm PO QACHS #30 tab 04/17/18 ondansetron HCl [Zofran] 4 mg PO QID PRN #10 tab 04/28/18 Allergies Allergy/AdvReac Type Severity Reaction Status Date / Time tree and shrub pollen Allergy Unverified 07/22/18 16:25 gluten AdvReac Severe Swelling/Ed Verified 07/22/18 16:25 wilson lactase [From Dairy Aid] AdvReac Severe Swelling/Ed Verified 07/22/18 16:25 wilson soy AdvReac Severe Swelling/Ed Verified 07/22/18 16:25 wilson cigarette smoke AdvReac Mild Wheezing Verified 07/22/18 16:25 minerals [From Enviro Stress] AdvReac Mild Wheezing Verified 07/22/18 16:25 mold AdvReac Mild Wheezing Verified 07/22/18 16:25 Penicillins AdvReac Mild Skin Rash Verified 07/22/18 16:25 vitamin B complex and C AdvReac Mild Wheezing Verified 07/22/18 16:25 [From Enviro Stress] vitamin E (d-alpha AdvReac Mild Wheezing Verified 07/22/18 16:25 tocopherol) [From Enviro Stress] grass Allergy Uncoded 07/22/18 16:25 antidepressents AdvReac Severe Swelling/Ed Uncoded 07/22/18 16:25 wilson chocolate liquor/dark AdvReac Severe Anaphylaxsi Uncoded 07/22/18 16:25 s friuts seeds AdvReac Severe Swelling/Ed Uncoded 07/22/18 16:25 wilson leguimes AdvReac Severe Anaphylaxsi Uncoded 07/22/18 16:25 s muscle relaxaten AdvReac Severe Dizziness/L Uncoded 07/22/18 16:25 ightheade nuts AdvReac Severe Anaphylaxsi Uncoded 07/22/18 16:25 s peanuts AdvReac Severe Anaphylaxsi Uncoded 07/22/18 16:25 s pig meats AdvReac Severe Anaphylaxsi Uncoded 07/22/18 16:25 s pitted fruits AdvReac Severe Anaphylaxsi Uncoded 07/22/18 16:25 s seeds AdvReac Severe Swelling/Ed Uncoded 07/22/18 16:25 wilson smoked meats AdvReac Severe Anaphylaxsi Uncoded 07/22/18 16:25 s pain meds AdvReac Intermediate Nausea Uncoded 07/22/18 16:25 animals AdvReac Mild Wheezing Uncoded 07/22/18 16:25 dust AdvReac Mild Wheezing Uncoded 07/22/18 16:25 mildew AdvReac Mild Wheezing Uncoded 07/22/18 16:25 General Stated Complaint: Orthopedic HUBERT: 4 Review of Systems Review of Systems All systems reviewed & are unremarkable except as noted in HPI and below Constitutional Denies chills, Denies fever(s) and Denies weakness Cardiovascular Denies chest pain and Denies dyspnea Respiratory Denies cough and Denies dyspnea Gastrointestinal Denies abdominal pain, Denies nausea and Denies vomiting Genitourinary Denies dysuria Musculoskeletal Denies joint swelling Integumentary/Breasts Denies rash Neurologic Denies weakness [facility] Social History Smoking/Tobacco Use Status: Never Drug use: Never Do you feel safe in your relationship?: Yes Exam Const General: no acute distress Orientation: alert HENMT Head: normal to inspection Ears: external ears normal General nose exam: external nose normal Mouth: moist mucous membranes Eyes General: appearance normal, both eyes and all related structures Neck Neck: normal visual inspection Resp Effort & Inspection: normal respiratory effort and able to speak in complete sentences Cardio Rate: regular rate Skin General skin exam: no rashes or lesions noted Neuro General: alert and oriented x3 Extrem General: normal capillary refill Psych Mental Status: mental status grossly normal Course Vital Signs Temperature 36.6 C 07/22/18 16:23 Pulse 70 07/22/18 16:23 Respiratory Rate 16 07/22/18 16:23 Blood Pressure 142/66 H 07/22/18 16:23 Pulse Oximetry 100 07/22/18 16:23 Temperature 36.6 C 07/22/18 16:23 Temperature Source Skin 07/22/18 16:23 Pulse 70 07/22/18 16:23 Respiratory Rate 16 07/22/18 16:23 Respiratory Effort 07/22/18 16:23 Blood Pressure 142/66 H 07/22/18 16:23 Blood Pressure Position Sitting 07/22/18 16:23 Pulse Oximetry 100 07/22/18 16:23 Oxygen Delivery Method Room Air 07/22/18 16:23 Oxygen Flow Rate 0 07/22/18 16:23 Pain Level 5 07/22/18 16:23
--- NOTE | 2018-07-22 16:51 | DI.VRAD_ITS ---
EXAM: XR Right Foot Complete EXAM DATE/TIME: 07/22/2018 4:29 PM CLINICAL HISTORY: 63 years old, female; Foot; Right; Patient HX: Pain after stubbing toe TECHNIQUE: Imaging protocol: XR Right foot. Views: 3 or more views. COMPARISON: SOFT TISSUE UPPER/LOWER EXT US 07/06/2015 2:21 PM FINDINGS: Bones/joints: Bony mineralization is within normal limits. There is no evidence of an acute fracture or dislocation. There is a prominent plantar calcaneal spur. Mild degenerative changes are seen at the first metatarsal phalangeal joint as well as in the interphalangeal joints. Soft tissues: There is mild soft tissue swelling of the great toe. IMPRESSION: No acute fracture Dictated and Authenticated by: Becky Navarro MD. Ordering:CLAUDIA Fleming MD
[2018-07-22] MEDS: Acetaminophen 500 MG TAB 1000 MG PO (17:04)
== END 2018-07-22 17:18 | disposition home or self-care (01) ==
PROVIDERS: Emergency Provider Emergency Medicine; PCP Family Medicine
DX: S92.514A Nondisplaced fracture of proximal phalanx of right lesser toe(s), initial encounter for closed fracture (principal); W22.8XXA Striking against or struck by other objects, initial encounter
CPT/HCPCS: 28510; 73630

== ENCOUNTER 2018-09-14 12:35 | Emergency (ER) | payer BC, SELFPAY ==
[2018-09-14 12:36] VITALS: BP 160/68; PULSE 72; RESP 18; TEMP 36.5; O2SAT 100
--- NOTE | 2018-09-14 12:49 | ED.GENADUL_ITS ---
Discharge Plan Disposition Patient Disposition: HOME Condition: Improving Discharge Details Chief Complaint: RespSymp Clinical Impression: Acute exacerbation of chronic obstructive pulmonary disease (COPD) Primary Care Provider: Kaylene Pinedo V ED Provider: Cale Sumner Home Meds and New Rx's Prescriptions: New prednisone 20 mg tablet 40 mg PO DAILY 4 Days Qty: 8 RF: 0 Continued multivitamin [Daily Multiple] 1 EACH tablet 1 ea PO DAILY RF: 0 trazodone 50 MG tablet 50 mg PO DAILY RF: 0 omega-3 fatty acids-fish oil 1 EACH capsule 1 ea PO DAILY RF: 0 fexofenadine [Renata Allergy] 180 MG tablet 180 mg PO DAILY RF: 0 levalbuterol tartrate [Xopenex HFA] 200 PUFF HFA aerosol inhaler 2 puff Inhalation PRN PRNRF: 0 turmeric root extract 500 MG capsule 1,000 mg PO DAILY RF: 0 vitamin D3-vitamin K2 5,500-200 unit-mcg Tablet 1 tab PO DAILY RF: 0 sucralfate [Carafate] 1 gram tablet 1 gm PO QACHS Qty: 30 RF: 0 omeprazole 40 mg capsule,delayed release(DR/EC) 40 mg PO DAILY Qty: 30 RF: 0 prednisone 10 mg Tablet 10 mg PO DAILY RF: 0 Symbicort 160-4.5 mcg/actuation Hfa Aerosol Inhaler 2 puff INHALATION BID RF: 0 Spiriva Respimat 2.5 mcg/actuation Mist 2 puff INHALATION DAILY RF: 0 ondansetron HCl [Zofran] 4 mg tablet 4 mg PO QID PRN (Reason: nausea and vomiting) Qty: 10 RF: 0 montelukast 10 MG tablet 10 mg PO DAILY RF: 0 Discharge Instructions Instructions: COPD (Chronic Obstructive Pulmonary Disease) (ED) Additional Instructions: As discussed, please use prednisone as prescribed for 4 days time. Follow-up with your field technical assistant for a recheck as planned. Resume your normal medications. Return to the emergency department for any acute concern Medical Decision Making 63-year-old female with a history of COPD presents from home with 2 days of dry cough, increased wheeze that is been somewhat refractive to her home medications. She has an extensive list of allergies and intolerances, including had a poor intolerance of long courses of prednisone, but she will note that short courses have been tolerated without difficulty. Chest x-ray without acute findings. She is improved following Xopenex We will treat with 4 days of prednisone. She has ongoing use of inhalers at home. She understands the plan of care as well as follow-up/return precautions. HPI General Mode of arrival: ambulatory . Date/Time Provider Initiated Documentation: 09/14/18 12:42 . Limitations to Documentation: no limitations . Information obtained by: patient . History of Present Illness 63 year old F presents to the emergency department with the chief complaint of Cough and wheezing, described as moderate and similar to prior episodes, Quality is described as dull, and is localized to the chest. Patient reports no radiation. Patient started experiencing this day(s) and it has been constant. No relieving factors improve symptom(s), No exacerbating factors reported . Patient notes cough; denies chest pain, fever/chills, nausea/vomiting, syncope and weakness. Patient did receive the following treatments prior to arrival, other (Home inhaler) Related Data Home Medications Medication Instructions Recorded Confirmed multivitamin [Daily Multiple] 1 ea PO DAILY 07/24/15 07/22/18 omega-3 fatty acids-fish oil 1 ea PO DAILY 07/24/15 07/22/18 trazodone 50 mg PO DAILY tab-cap 07/24/15 07/22/18 fexofenadine [Renata Allergy] 180 mg PO DAILY 01/19/16 07/22/18 levalbuterol tartrate [Xopenex HFA] 2 puff INHALATION PRN PRN 01/19/16 07/22/18 turmeric root extract 1,000 mg PO DAILY 01/19/16 07/22/18 montelukast 10 mg PO DAILY 07/28/17 07/22/18 omeprazole 40 mg PO DAILY #30 cap 04/17/18 07/22/18 sucralfate [Carafate] 1 gm PO QACHS #30 tab 04/17/18 07/22/18 vitamin D3-vitamin K2 1 tab PO DAILY 04/17/18 07/22/18 Spiriva Respimat 2 puff INHALATION DAILY 04/28/18 07/22/18 Symbicort 2 puff INHALATION BID 04/28/18 07/22/18 ondansetron HCl [Zofran] 4 mg PO QID PRN #10 tab 04/28/18 07/22/18 prednisone 10 mg PO DAILY 04/28/18 07/22/18 prednisone 40 mg PO DAILY 4 Days #8 tab 09/14/18 Previous Rx's Medication Instructions Recorded omeprazole 40 mg PO DAILY #30 cap 04/17/18 sucralfate [Carafate] 1 gm PO QACHS #30 tab 04/17/18 ondansetron HCl [Zofran] 4 mg PO QID PRN #10 tab 04/28/18 prednisone 40 mg PO DAILY 4 Days #8 tab 09/14/18 Allergies Allergy/AdvReac Type Severity Reaction Status Date / Time tree and shrub pollen Allergy Unverified 09/14/18 12:42 gluten AdvReac Severe Swelling/Ed Verified 09/14/18 12:42 wilson lactase [From Dairy Aid] AdvReac Severe Swelling/Ed Verified 09/14/18 12:42 wilson soy AdvReac Severe Swelling/Ed Verified 09/14/18 12:42 wilson cigarette smoke AdvReac Mild Wheezing Verified 09/14/18 12:42 minerals [From Enviro Stress] AdvReac Mild Wheezing Verified 09/14/18 12:42 mold AdvReac Mild Wheezing Verified 09/14/18 12:42 Penicillins AdvReac Mild Skin Rash Verified 09/14/18 12:42 vitamin B complex and C AdvReac Mild Wheezing Verified 09/14/18 12:42 [From Enviro Stress] vitamin E (d-alpha AdvReac Mild Wheezing Verified 09/14/18 12:42 tocopherol) [From Enviro Stress] grass Allergy Uncoded 09/14/18 12:42 antidepressents AdvReac Severe Swelling/Ed Uncoded 09/14/18 12:42 wilson chocolate liquor/dark AdvReac Severe Anaphylaxsi Uncoded 09/14/18 12:42 s friuts seeds AdvReac Severe Swelling/Ed Uncoded 09/14/18 12:42 wilson leguimes AdvReac Severe Anaphylaxsi Uncoded 09/14/18 12:42 s muscle relaxaten AdvReac Severe Dizziness/L Uncoded 09/14/18 12:42 ightheade nuts AdvReac Severe Anaphylaxsi Uncoded 09/14/18 12:42 s peanuts AdvReac Severe Anaphylaxsi Uncoded 09/14/18 12:42 s pig meats AdvReac Severe Anaphylaxsi Uncoded 09/14/18 12:42 s pitted fruits AdvReac Severe Anaphylaxsi Uncoded 09/14/18 12:42 s seeds AdvReac Severe Swelling/Ed Uncoded 09/14/18 12:42 wilson smoked meats AdvReac Severe Anaphylaxsi Uncoded 09/14/18 12:42 s pain meds AdvReac Intermediate Nausea Uncoded 09/14/18 12:42 animals AdvReac Mild Wheezing Uncoded 09/14/18 12:42 dust AdvReac Mild Wheezing Uncoded 09/14/18 12:42 mildew AdvReac Mild Wheezing Uncoded 09/14/18 12:42 General Stated Complaint: RespSymp HUBERT: 4 Review of Systems Review of Systems 6 systems are reviewed and otherwise negative [facility] Social History Smoking/Tobacco Use Status: Never Alcohol Intake: never Drug use: Never Do you feel safe at home: Yes Do you feel safe in your relationship?: Yes Exam Narrative Exam Narrative: GEN: awake, alert, oriented 3. Pleasant, well groomed, interactive. HEAD: Normocephalic, atraumatic ENT: Mucous membranes moist, oropharynx unremarkable, External ear exam unremarkable EYES: PERRL, EOMI NECK: Full ROM, no PIYUSH, no menigismus CHEST/RESP: Nontender, few scattered wheezes best heard in superoanterior lung cavazos CARDIOVASCULAR: RRR, no murmur, rub jeana. 2+ Rad pulse bilateral ABDOMEN: Soft, nontender, no mass. +Bowel sounds EXT: Full ROM, no edema, no rash Neuro: Grossly normal neurologic exam, conversant, interactive. Psych: Speech fluent, thoughts congruent, affect normal Course Vital Signs Temperature 36.5 C 09/14/18 12:36 Pulse 72 09/14/18 12:36 Respiratory Rate 18 09/14/18 12:36 Blood Pressure 160/68 H 09/14/18 12:36 Pulse Oximetry 100 09/14/18 12:36 Temperature 36.5 C 09/14/18 12:36 Temperature Source Skin 09/14/18 12:36 Pulse 72 09/14/18 12:36 Respiratory Rate 18 09/14/18 12:36 Respiratory Effort Non-Labored 09/14/18 12:44 Respiratory Depth Normal 09/14/18 12:44 Blood Pressure 160/68 H 09/14/18 12:36 Blood Pressure Position Sitting 09/14/18 12:36 Pulse Oximetry 100 09/14/18 12:36 Oxygen Delivery Method Room Air 09/14/18 12:36 Oxygen Flow Rate 0 09/14/18 12:36
--- NOTE | 2018-09-14 12:49 | DI.RAD_ITS ---
SYMPTOM/DIAGNOSIS: COUGH, ASTHMA CHEST X-RAY: PA, Lateral. Comparison 04/17/18 The heart is normal in size. The lungs are clear. The mediastinal structures and pleura appear intact. CONCLUSION: Normal chest.
[2018-09-14 13:00] VITALS: RESP 1; RESP 18; RESP 4; O2SAT 100
[2018-09-14] MEDS: Levalbuterol 1.25 MG/3 ML UPD VIAL UPD (13:00)
== END 2018-09-14 14:05 | disposition home or self-care (01) ==
PROVIDERS: Emergency Provider Emergency Medicine; PCP Family Medicine
DX: J44.1 Chronic obstructive pulmonary disease with (acute) exacerbation (principal)
CPT/HCPCS: 94640; 99283; 71046; J7614

== ENCOUNTER 2019-01-28 00:39 | Outpatient (CLI) | payer OTHER, SELFPAY ==
--- NOTE | 2019-01-28 09:02 | DI.MAMMO_ITS ---
EXAM: MAMMO SCREENING CLINICAL HISTORY: SCREENING, Z12.31, HEALTH MAINTENANCE EXAM, Z00.8. TECHNIQUE: Full field digital CC and MLO mammographic images were obtained with 3D tomosynthesis and utilizing computer aided detection (CAD). COMPARISON: . 2009 through 2016 FINDINGS: Breast Density - Category C - Heterogeneously dense Masses/Architectural Distortion: None seen. Microcalcifications: No suspicious pleomorphic-type calcifications are seen. Skin Thickening/Nipple Retraction: None. Axilla: Unremarkable. IMPRESSION: 1. BI-RADS category 1, negative. No significant interval change with no specific features of maligna ncy noted. 2. Unless there is more urgent need, screening mammography is recommended, as per [employer] guidelines. A negative radiographic report should not delay biopsy if a dominant or clinically suspicious mass is present. Up to ten percent of cancers are not identified on mammography. A negative report may reinforce clinical impression. Adenosis and dense breasts may obscure an underlying neoplasm. False positive reports average 6 to 10%. Patient will receive a letter notifying them of these results.
== END 2019-01-28 00:59 ==
PROVIDERS: PCP Family Medicine; Visit Provider Family Medicine
DX: Z00.00 Encounter for general adult medical examination without abnormal findings (principal); Z12.31 Encounter for screening mammogram for malignant neoplasm of breast
CPT/HCPCS: 77063; 77067

== ENCOUNTER 2019-02-05 10:29 | Outpatient (CLI) | payer OTHER, SELFPAY ==
[2019-02-05 11:36] LABS: Anion Gap 11.3 mmol/L (3-11); BUN 20 mg/dL (7-18); CO2 24.7 mmol/L (21.0-32.0); CREATININE 1.16 mg/dL (0.55-1.02); Calcium 8.9 mg/dL (8.5-10.1); Chloride 106 mmol/L (98-107); Estimated GFR 47.18 (mL/min/1.73m2); Glucose 113 mg/dL (74-106); Potassium 4.2 mmol/L (3.5-5.1); Sodium 142 mmol/L (136-145)
== END 2019-02-05 10:49 ==
PROVIDERS: PCP Family Medicine; Visit Provider Internal Medicine Gastroenterology
DX: Z79.899 Other long term (current) drug therapy (principal)
CPT/HCPCS: 36415; 80048

== ENCOUNTER 2019-03-14 10:35 | Emergency (ER) | payer OTHER, SELFPAY ==
[2019-03-14 10:50] VITALS: BP 140/65; PULSE 79; RESP 16; TEMP 37.1; O2SAT 100
--- NOTE | 2019-03-14 11:21 | W.ED.GENAD ---
Discharge Plan Disposition Patient Disposition: HOME Condition: Good Discharge Details Chief Complaint: Orthopedic Clinical Impression: Metatarsal fracture, Sprain Primary Care Provider: Kaylene Pinedo V ED Provider: Rosa Manning Home Meds and New Rx's Prescriptions: No Action multivitamin [Daily Multiple] 1 EACH tablet 1 ea PO DAILY RF: 0 trazodone 50 MG tablet 100 mg PO DAILY RF: 0 fexofenadine [Renata Allergy] 180 MG tablet 180 mg PO DAILY RF: 0 levalbuterol tartrate [Xopenex HFA] 200 PUFF HFA aerosol inhaler 2 puff Inhalation PRN PRNRF: 0 turmeric root extract 500 MG capsule 1,000 mg PO DAILY RF: 0 vitamin D3-vitamin K2 5,500-200 unit-mcg Tablet 1 tab PO DAILY RF: 0 calcium carbonate [Calcium 600] 600 mg calcium (1,500 mg) Tablet 1 mg PO DAILY RF: 0 lansoprazole 30 mg Capsule,Delayed Release(Dr/Ec) 1 mg PO BID RF: 0 vitamin K39-gxiph acid 500-400 mcg Tablet PO RF: 0 montelukast 10 MG tablet 10 mg PO DAILY RF: 0 Discharge Instructions Instructions: Foot Fracture in Adults (ED) Additional Instructions: Rest. Activities as tolerated. Elevate injury to prevent swelling. Ice to the area of discomfort for 15 min. 3-5 times daily. Tylenol every 6 hours for soreness if needed over the counter for comfort. Followup with orthopedic doctor as discussed for reevaluation Use walking boot and assistive devices to limit ambulation as discussed Return for any worsening or concerns sooner if needed. Referrals: Cale Milton MD [ [facility] ST[facility]FF PHYSICIAN] - Discharge Data Discharge Date/Time-TO BE ENTERED AT DEPARTURE: 03/14/19 14:35 Medical Decision Making 64-year-old patient presenting for an injury which occurred last week. Patient fell down 2 steps ultimately injuring her right lower leg which was folded beneath her. Patient reports minimal pain after fall but mild tingling in the area. Patient reports participating in a ballet class and indoor rock climbing both which increased her complaints of pain. Now she is reporting increased pain and swelling in the area. Concerned with the possibility of fracture. Denies open wounds. No other sites of pain or concerns at this time. Plan to provide Tylenol for discomfort at patient's request as well as x-ray of lower extremity. No other apparent injuries noted. Patient's x-rays reveal no acute fracture of the tibia/fibula or ankle. There is a question of a nondisplaced fracture at the base of the fifth metatarsal on the medial aspect of the bone. This is described as a subtle fine linear lucency and possible cortical step-off at the medial aspect of the fifth metatarsal, cannot exclude a nondisplaced fracture. Recommend clinical correlation and point tenderness at the area. Patient certainly has point tenderness at this area therefore will treat appropriately for possible nondisplaced fracture. Will use a equalizer walking boot as this patient does also have ankle swelling overlying the lateral malleolus and I feel this will best stabilize both injuries. Patient did have a trial of ambulation with crutches and had some difficulty ambulating with crutches due to bilateral thumb arthritis. Preference was walker which patient was more stable using. 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 Unable to obtain walker this evening therefore prescription for walker was provided. Recommended rice, conservative treatments, elevation, use of Tylenol and follow-up with orthopedics locally. Patient agrees with plan of care. Patient requesting discharge home at this time. The patient was stable and requested discharge. Prior to discharge, my usual and customary return precautions were reviewed with the patient - this included follow-up instructions and reasons to return to the Emergency Department if conditions worsens, does not improve as expected, or other new concerns arise. HPI General Date/Time Provider Initiated Documentation: 03/14/19 10:40. HPI Narrative: Is a 64-year-old patient who reports last week she tripped onto wooden stairs falling ultimately with her right leg folded beneath her landing on her buttocks. Patient reports mild discomfort to the lateral ankle and foot at that point. Patient reports she 2 days later participated in an aggressive ballet class. After which pain was somewhat worse. The following day patient went rockclimbing and reports continued worsening pain of her right foot and ankle. Now noting significant increase in her swelling. Patient reports parsons ankle and foot pain. Denies numbness, tingling or weakness. Pain with ambulation. No open wounds. No other concerns or complaints. Denies any resulting injuries other than the right lower extremity pain. Denies head neck or back complaints. No upper extremity injuries reported after fall. Has tried Tylenol with minimal relief. Has tried icing with minimal relief. Related Data Home Medications Medication Instructions Recorded Confirmed multivitamin [Daily Multiple] 1 ea PO DAILY 07/24/15 03/14/19 trazodone 100 mg PO DAILY tab-cap 07/24/15 03/14/19 fexofenadine [Renata Allergy] 180 mg PO DAILY 01/19/16 03/14/19 levalbuterol tartrate [Xopenex HFA] 2 puff INHALATION PRN PRN 01/19/16 03/14/19 turmeric root extract 1,000 mg PO DAILY 01/19/16 03/14/19 montelukast 10 mg PO DAILY 07/28/17 03/14/19 vitamin D3-vitamin K2 1 tab PO DAILY 04/17/18 03/14/19 calcium carbonate [Calcium 600] 1 mg PO DAILY 03/14/19 03/14/19 lansoprazole 1 mg PO BID 03/14/19 03/14/19 vitamin N12-iofuk acid tab PO 03/14/19 Allergies Allergy/AdvReac Type Severity Reaction Status Date / Time tree and shrub pollen Allergy Unverified 03/14/19 10:54 gluten AdvReac Severe Swelling/Ed Verified 03/14/19 10:54 wilson lactase [From Dairy Aid] AdvReac Severe Swelling/Ed Verified 03/14/19 10:54 wilson soy AdvReac Severe Swelling/Ed Verified 03/14/19 10:54 wilson cigarette smoke AdvReac Mild Wheezing Verified 03/14/19 10:54 minerals [From Enviro Stress] AdvReac Mild Wheezing Verified 03/14/19 10:54 mold AdvReac Mild Wheezing Verified 03/14/19 10:54 Penicillins AdvReac Mild Skin Rash Verified 03/14/19 10:54 vitamin B complex and C AdvReac Mild Wheezing Verified 03/14/19 10:54 [From Enviro Stress] vitamin E (d-alpha AdvReac Mild Wheezing Verified 03/14/19 10:54 tocopherol) [From Enviro Stress] grass Allergy Uncoded 03/14/19 10:54 antidepressents AdvReac Severe Swelling/Ed Uncoded 03/14/19 10:54 wilson chocolate liquor/dark AdvReac Severe Anaphylaxsi Uncoded 03/14/19 10:54 s friuts seeds AdvReac Severe Swelling/Ed Uncoded 03/14/19 10:54 wilson leguimes AdvReac Severe Anaphylaxsi Uncoded 03/14/19 10:54 s muscle relaxaten AdvReac Severe Dizziness/L Uncoded 03/14/19 10:54 ightheade nuts AdvReac Severe Anaphylaxsi Uncoded 03/14/19 10:54 s peanuts AdvReac Severe Anaphylaxsi Uncoded 03/14/19 10:54 s pig meats AdvReac Severe Anaphylaxsi Uncoded 03/14/19 10:54 s pitted fruits AdvReac Severe Anaphylaxsi Uncoded 03/14/19 10:54 s seeds AdvReac Severe Swelling/Ed Uncoded 03/14/19 10:54 wilson smoked meats AdvReac Severe Anaphylaxsi Uncoded 03/14/19 10:54 s pain meds AdvReac Intermediate Nausea Uncoded 03/14/19 10:54 animals AdvReac Mild Wheezing Uncoded 03/14/19 10:54 dust AdvReac Mild Wheezing Uncoded 03/14/19 10:54 mildew AdvReac Mild Wheezing Uncoded 03/14/19 10:54 General Stated Complaint: Orthopedic HUBERT: 4 Review of Systems All systems reviewed & are unremarkable except as noted in HPI and below Constitutional Constitutional: Denies headache(s) ENT Ears, Nose, Mouth, and Throat: Denies headache(s) and Denies neck pain Musculoskeletal Musculoskeletal: Reports abnormal gait (Limping), Denies back pain, Reports limited range of motion, Denies neck pain, Denies numbness, Reports stiffness and Denies tingling Integumentary/Breasts Skin/Breast: Denies wounds Neurologic Neurologic: Reports abnormal gait (Limping), Denies headache(s), Denies numbness and Denies tingling [facility] Social History Smoking/Tobacco Use Status: Never Alcohol Intake: never Drug use: Never Do you feel safe at home: Yes Do you feel safe in your relationship?: Yes Exam Narrative Exam Narrative: CONST: Healthy appearing patient, in no acute distress. Well hydrated. Alert and oriented. NECK: Normal visual inspection. FROM. Trachea midline. No Midline tenderness. Back: No spinal tenderness in the midline of cervical, thoracic or lumbar spine. No step-offs. MUSCULOSKELETAL: Right leg: No knee pain with palpation. Full range of motion of the right knee. Mild mid and distal parsons pain with palpation, lateral malleolus tenderness noted at the ankle. Minimal medial malleolus tenderness. No Achilles tenderness, Achilles intact. Lateral foot pain maximum site of tenderness at the base of the fifth metatarsal. No open wounds. Pulses intact. Sensation intact. Swelling noted over the dorsal foot. SKIN: No wounds. Mild swelling of the lateral ankle and dorsal foot PSYCH: Normal affect. Cooperative. Course Vital Signs Vital signs: Vital Signs Temperature 37.1 C 03/14/19 10:50 Pulse 79 03/14/19 10:50 Respiratory Rate 16 03/14/19 10:50 Blood Pressure 140/65 03/14/19 10:50 Pulse Oximetry 100 03/14/19 10:50 Temperature 37.1 C 03/14/19 10:50 Temperature Source Temporal Artery Scan 03/14/19 10:50 Pulse 79 03/14/19 10:50 Respiratory Rate 16 03/14/19 10:50 Respiratory Effort Non-Labored 03/14/19 10:50 Blood Pressure 140/65 03/14/19 10:50 Pulse Oximetry 100 03/14/19 10:50 Oxygen Delivery Method Room Air 03/14/19 10:50 Oxygen Flow Rate 0 03/14/19 10:50 Pain Level 5 03/14/19 10:58
[2019-03-14] MEDS: Acetaminophen 500 MG TAB 1000 MG PO (11:25)
--- NOTE | 2019-03-14 11:35 | DI.RAD_ITS ---
EXAM: XR TIB/FIB RT INDICATION: pain, injury. COMPARISON: No exams were available for comparison TECHNIQUE: 2D digital imaging was performed. FINDINGS: No fracture is identified. The knee and ankle are unremarkable as visualized. IMPRESSION: Negative right tibia and fibula.
--- NOTE | 2019-03-14 11:35 | DI.RAD_ITS ---
EXAM: XR FOOT RT COMPLETE INDICATION: pain, injury. COMPARISON: XR foot RT complete from 07/22/2018 TECHNIQUE: 2D digital imaging was performed. FINDINGS: Heel spurs are noted. There are ossicles adjacent to the cuboid. There are mild degenerative change s of the 1st MTP joint. There is a nondisplaced fracture of the 5th metatarsal distally. No additio nal fractures are identified. IMPRESSION: Nondisplaced fracture of the 5th metatarsal.
--- NOTE | 2019-03-14 11:36 | DI.RAD_ITS ---
EXAM: XR ANKLE RT COMPLETE INDICATION: pain, injury. COMPARISON: No exams were available for comparison TECHNIQUE: 2D digital imaging was performed. FINDINGS: There is soft tissue swelling around the malleoli. No fracture or ankle mortise widening is seen. T here is a small os trigonum. Heel spurs are seen. There are mild tibiotalar degenerative changes. IMPRESSION: No acute bony abnormality. Soft tissue swelling.
--- NOTE | 2019-03-14 12:21 | DI.VRAD_ITS ---
PROCEDURE INFORMATION: Exam: XR Right Tibia and Fibula Exam date and time: 03/14/2019 11:36 AM Age: 64 years old Clinical indication: Pain; Foot; Right TECHNIQUE: Imaging protocol: XR Right tibia and fibula. Views: 2 views. COMPARISON: No relevant prior studies available. FINDINGS: Bones/joints: Normal. Soft tissues: Normal. IMPRESSION: No acute findings. Dictated and Authenticated by: Ruddy Garvin MD. Ordering:LILY Lee MD
--- NOTE | 2019-03-14 12:24 | DI.VRAD_ITS ---
PROCEDURE INFORMATION: Exam: XR Right Foot Complete Exam date and time: 03/14/2019 11:40 AM Age: 64 years old Clinical indication: Pain; Foot; Right TECHNIQUE: Imaging protocol: XR Right foot. Views: 3 or more views. COMPARISON: CR XR foot RT complete 07/22/2018 4:42 PM FINDINGS: Bones/joints: There are fine linear lucencies and possible cortical step-off at the medial aspect of the 5th metatarsal which could represent a nondisplaced fracture in the proper clinical setting. Well-corticated ossific densities adjacent to the lateral aspect of the cuboid likely represents chronic posttraumatic change or ossicles. No ankle joint effusion. Plantar calcaneal enthesophyte. Posterior calcaneal these a fight at the attachment of the Achilles tendon. Likely os trigonum. Soft tissues: No discrete soft tissue swelling. IMPRESSION: Subtle fine linear lucencies and possible cortical step-off at the medial aspect of the 5th metatarsal, cannot exclude nondisplaced fracture. Recommend clinical correlation and point tenderness this area with conservative management. Dictated and Authenticated by: Ruddy Garvin MD. Ordering:LILY Lee MD
--- NOTE | 2019-03-14 12:27 | DI.VRAD_ITS ---
PROCEDURE INFORMATION: Exam: XR Right Ankle Exam date and time: 03/14/2019 11:39 AM Age: 64 years old Clinical indication: Pain; Foot; Right TECHNIQUE: Imaging protocol: XR Right ankle. Views: 3 or more views. COMPARISON: CR XR foot RT complete 07/22/2018 4:42 PM FINDINGS: Bones/joints: Mild dorsal midfoot degenerative changes. No acute fracture or dislocation. No ankle joint effusion. The ankle mortise is maintained. Plantar calcaneal and posterior calcaneal enthesophyte. Likely os trigonum. Ossific density lateral to the cuboid likely represents an ossicle versus prior traumatic injury. Soft tissues: Lateral ankle soft tissue swelling. IMPRESSION: 1. Lateral ankle soft tissue swelling. 2. No discrete acute osseous abnormality. 3. Ossific densities lateral to the cuboid are felt likely to represent ossicle and/or sequelae of prior traumatic injury. Recommend point tenderness to this area with conservative management. Dictated and Authenticated by: Ruddy Garvin MD. Ordering:LILY Lee MD
== END 2019-03-14 14:35 | disposition home or self-care (01) ==
PROVIDERS: Emergency Provider Physician Assistant; PCP Family Medicine
DX: S92.354A Nondisplaced fracture of fifth metatarsal bone, right foot, initial encounter for closed fracture (principal); S93.401A Sprain of unspecified ligament of right ankle, initial encounter; W10.9XXA Fall (on) (from) unspecified stairs and steps, initial encounter
CPT/HCPCS: 29515; 99284; 73590; 73610; 73630; 99283; L4361

== ENCOUNTER 2019-04-01 02:19 | Outpatient (CLI) | payer OTHER, SELFPAY ==
--- NOTE | 2019-04-01 | DI.US_ITS ---
APPROVED REPORT EXAM: Comprehensive 2D, Doppler, and color-flow Echocardiogram Patient Location: Out-Patient Property Field Inspector: Nikky Mai RDCS (AE) Rhythm: NSR Indications: abnormal cardiovascular stress test R94.39, health maintenance exam Z00.8 Conclusion Left Ventricle : The left ventricle is normal size. The left ventricular systolic function is normal. The left ventricular ejection fraction is within the normal range. There is normal left ventricular wall thickness. There is normal LV segmental wall motion. The left ventricular diastolic function is normal. LVEF is estimtaed to be 55-60%. Right Ventricle : The right ventricle is normal size. The right ventricular systolic function is appe ars normal. Atria : Left atrium is top normal in size. The right atrium size is normal. Valves: There are no significant valvular abnormalities. Great Vessels : IVC is normal in size and collapses >50% with inspiration. There are no prior echocardiographic images available for comparison. Wall motion Left Ventricle The left ventricle is normal size. The left ventricular systolic function is normal. The left ventric ular ejection fraction is within the normal range. There is normal left ventricular wall thickness. T here is normal LV segmental wall motion. The left ventricular diastolic function is normal. LVEF is e stimtaed to be 55-60%. Right Ventricle The right ventricle is normal size. The right ventricular systolic function is appears normal. Atria Left atrium is top normal in size. The right atrium size is normal. Aortic Valve Aortic valve is trileaflet. There is no aortic valvular stenosis. No aortic regurgitation is present. Mitral Valve Mitral valve leaflets are mildly thickened. No evidence of mitral valve stenosis. Trivial to mild lobito ral regurgitation. Tricuspid Valve The tricuspid valve is normal in structure. Trivial tricuspid regurgitation. Pulmonic Valve Pulmonic valve is not well visualized. Great Vessels The aortic root is normal in size. IVC is normal in size and collapses >50% with inspiration. Pericardium small anterior epicardial fat pad is present. 2D Dimensions IVSD d PLAX 0.93 cm LV Vol A2C d MOD 62.0 mL LVPW d PLAX 0.88 cm LV Vol A4C d MOD 70.6 mL LVID d PLAX 4.73 cm LA vol/ BSA A2C s A-L 37.5 mL/m2 LVDs 3.25 cm LA vol/ BSA A4C s A-L 33.2 mL/m2 Ao Root d 2.93 cm LA Vol/ BSA Biplane s A-L 35.7 mL/m2 RA Area A4C 11.56 cm2 LA Area A4C s MOD 19.03 cm2 RA Vol/ BSA A4C s A-L 15.4 mL/m2 LA Area A2C s MOD 20.45 cm2 Ao Asc Diam d 2.62 cm LV EF A4C MOD 55.1 % LV EF Teichholz 58.1 % LV EF A2C MOD 57.4 % LVEF (Shen's) 56.32 % LV EF Biplane MOD 56.3 % LV Volume 51.69 mL IVC Diam exp d SLAX 1.49 cm LV Volume Index 39.60 mL/m2 LV Vol Biplane MOD 66.2 mL FS 30.60 % M-Mode TAPSE 1.90 cm (M/F) <1.7 LV Diastology MV E' medial 0.076 (>0.07 m/s) E/A Ratio 0.80 LV E/e MED 9.25 (<14) MV E Vmax 0.70 (0.4-1.3 m/s) MV E' lateral 0.091 (>0.1 m/s) MV A Vmax 0.80 (0.4-1.3 m/s) LV E/e LAT 7.75 (<14) MV E/A Ratio 0.84 MV E/E' medial 9.28 MV E/E' lateral 7.75 Aortic Valve LVOT Area 3.28 cm2 AoV Area Vmax 3.18 cm2 LVOT Vmax 1.27 m/s AoV Area/ BSA (Vmax) 1.78 cm2/m2 LVOT Mean Farzad. 0.91 m/s THOMAS Mean Farzad. 3.13 cm2 LVOT Peak Grad 6.5 mmHg THOMAS Mean Farzad. Index 1.76 cm2/m2 LVOT Mean Grad 3.6 mmHg LVOT VTI 0.262 m LVOT Diam s 2.00 cm (M/F) 1.5-2.5 AoV Vmax 1.31 (0.5-1.3 m/s) AoV Mean Farzad. 0.95 m/s AoV Peak Grad 6.9 mmHg LVOT SV 85.98 mL AoV Mean Grad 4.0 (<5 mmHg) AoV VTI 0.312 (0.18-0.25 m) AoV Area VTI 2.76 (2.5-4.5 cm2) AoV Area/ BSA (VTI) 1.55 cm/m2 Mitral Valve MV DT 206 (160-240 msec) MV PHT 60 msec MV Area PHT 3.69 cm2 Pulmonary Valve PV Vmax 0.85 (0.5-1.5 m/s) RVOT Peak Gr. 1.48 mmHg PV Peak Grad 2.9 mmHg RVOT Mean Gr. 0.95 mmHg PV Mean Grad 2.0 mmHg RVOT VTI 0.135 m PV VTI 0.176 m RVOT Vmax 0.61 m/s Tricuspid Valve TR Peak Grad 15.8 mmHg TR Vmax 1.99 m/s RA Pressure 3.00 mmHg RVSP (TR) 18.8 mmHg
== END 2019-04-01 02:39 ==
PROVIDERS: PCP Family Medicine; Visit Provider Family Medicine
DX: R94.39 Abnormal result of other cardiovascular function study (principal)
CPT/HCPCS: 93306

== ENCOUNTER 2019-07-12 19:05 | Emergency (ER) | payer OTHER, SELFPAY ==
[2019-07-12] VITALS (8 sets, daily range): BP systolic 136–153; BP diastolic 69–78; PULSE 61–73; RESP 13–20; TEMP 36.6; O2SAT 96–100
--- NOTE | 2019-07-12 19:21 | W.ED.GENAD ---
Discharge Plan Discharge Details Chief Complaint: Dizzy/Sync Primary Care Provider: Kaylene Pinedo V ED Provider: Kerri Childress Home Meds and New Rx's Prescriptions: No Action multivitamin [Daily Multiple] 1 EACH tablet 1 ea PO DAILY RF: 0 trazodone 50 MG tablet 100 mg PO DAILY RF: 0 fexofenadine [Renata Allergy] 180 MG tablet 180 mg PO DAILY RF: 0 levalbuterol tartrate [Xopenex HFA] 200 PUFF HFA aerosol inhaler 2 puff Inhalation PRN PRNRF: 0 turmeric root extract 500 MG capsule 1,000 mg PO DAILY RF: 0 vitamin D3-vitamin K2 5,500-200 unit-mcg Tablet 1 tab PO DAILY RF: 0 calcium carbonate [Calcium 600] 600 mg calcium (1,500 mg) Tablet 1 mg PO DAILY RF: 0 lansoprazole 30 mg Capsule,Delayed Release(Dr/Ec) 1 mg PO BID RF: 0 vitamin [id number] acid 500-400 mcg Tablet PO RF: 0 montelukast 10 MG tablet 10 mg PO DAILY RF: 0 Discharge Data Discharge Date/Time-TO BE ENTERED AT DEPARTURE: 07/12/19 21:05 Medical Decision Making Ruthann Wolf is a 64-year-old woman with history of GERD, asthma who presented to the emergency department with sudden onset sensation of loss of balance that occurred while walking. No history of trauma. On exam patient is very well and nontoxic-appearing. She has a significantly positive Romberg, otherwise normal neurologic exam with cranial nerves II through XII intact, motor 5 out of 5 throughout, normal cerebellar exam of the upper and lower extremities. Concern for atypical vertigo versus posterior stroke/vertebral dissection, other. Patient is out of the window for TPA at this point. Exam/history not consistent with sepsis, meningitis, encephalitis, acute carotid pathology. Plan for CT head, screening labs, EKG, telemetry. I called [facility] transfer center to contact neurology at 19:40. CT head neg. Labs reviewed, GFR 38. 20:19 Callback received from [facility]. I relayed Pt presentation and results to Dr. Sena of neurology and Dr. Teague of EM. No ability to obtain MRI at [facility] until tomorrow am, Pt reports h/o facial swelling with contrast dye. Dr. Sena recommends transfer to [facility]. Plan for transfer to [facility] for further eval. Dr. Teague is accepting physician. No further recs from neurology at this time. Pt reporting some improvement after meclizine, improvement in wide based gait on reassessment, Pt still requiring assistance to walk 2/2 feeling of balance. Denies any other symptoms. Pt left ED with medics for transfer without further incident. Clinical Impression: loss of balance, concern for CVA Disposition: [facility] Medical Records Medical records reviewed: Yes I reviewed the patient's medical records. Imaging Data Radiologic Study: Attestation: I personally reviewed and interpreted this imaging study as follows: Radiologist's impression: Exam: CT Head Without Contrast Exam date and time: 07/12/2019 7:59 PM Age: 64 years old Clinical indication: Dizziness; Patient HX: Loss of balance, sudden onset TECHNIQUE: Imaging protocol: Computed tomography of the head without contrast. Other technique: STROKE PROTOCOL was implemented. COMPARISON: CT HEAD AND CSPINE W/O CONTRAST 05/10/2016 12:50 PM FINDINGS: Brain: Normal. No hemorrhage. Unremarkable white matter. No mass effect. Ventricles: Normal. No ventriculomegaly. Bones/joints: Unremarkable. No acute fracture. Sinuses: Visualized sinuses are unremarkable. No fluid levels. Mastoid air cells: Visualized mastoid air cells are well aerated. Orbits: Unremarkable. Soft tissues: Unremarkable. IMPRESSION: No acute intracranial abnormality. Lab Data Lab results reviewed: Yes I reviewed the patient's lab results. Labs: Laboratory Tests Range/Units 07/12/19 07/12/19 07/12/19 19:41 19:41 19:41 WBC (4.4-10.8) k/cumm 5.64 RBC (4.00-5.20) m/cumm 4.27 Hgb (12.0-15.5) g/dL 12.8 Hct (36.0-46.0) % 38.0 MCV (80-95) fL 89.0 MCH (27.0-33.0) pg 30.0 MCHC (32.0-36.0) g/dL 33.7 RDW (11.7-14.6) % 13.1 Plt Count (130-400) x1000/uL 236 MPV (8.0-11.0) fL 11.7 H Immature Gran % % 0.2 Neutrophils % 33.0 Lymphocytes % 51.1 Monocytes % 10.5 Eosinophils % 4.3 Basophils % 0.9 Absolute Neutrophils (1.2-6.7) k/cumm 1.87 Absolute Lymphocytes (1.2-3.4) k/cumm 2.88 Absolute Monocytes (0.11-0.7) k/cumm 0.59 Absolute Eosinophils (0.0-0.7) k/cumm 0.24 Absolute Basophils (0.0-0.2) k/cumm 0.05 PT (9.3-11.0) sec 10.2 INR (0.9-1.1) 1.0 Sodium (136-145) mmol/L 138 Potassium (3.5-5.1) mmol/L 3.5 Chloride (98-107) mmol/L 104 Carbon Dioxide (21.0-32.0) mmol/L 25.3 Anion Gap (3-11) mmol/L 8.7 BUN (7-18) mg/dL 19 H Creatinine (0.55-1.02) mg/dL 1.38 H Estimated GFR/1.73 m2 (mL/min/1.73m2) 38.61 Glucose (74-106) mg/dL 101 Calcium (8.5-10.1) mg/dL 8.8 Total Bilirubin (0.2-1.0) mg/dL 0.3 AST (15-37) U/L 17 ALT (14-59) U/L 26 Alkaline Phosphatase (46-116) U/L 117 H Total Protein (6.4-8.2) g/dL 6.7 Albumin (3.4-5.0) g/dL 3.7 ECG Data Attestation: I personally reviewed and interpreted this ECG (s) as follows: Interpretation: EKG shows SR at 63, normal axis, no STEMI, non-diagnostic EKG HPI General Mode of arrival: ambulatory. Date/Time Provider Initiated Documentation: 07/12/19 19:16. Limitations to Documentation: no limitations. Information obtained by: patient, RN notes reviewed and old records reviewed. HPI Narrative: Ruthann Wolf is a 64-year-old woman with a history of GERD, asthma presenting to the emergency department with loss of balance. Patient reports that today between 1 and 2:00 in the afternoon she was walking in her home when she had sudden onset feeling of loss of balance. Patient reports that she was walking and felt like she had to reach for the wall to keep upright. Patient reports that this sensation has persisted since onset, although she reports that she is able to walk on her own if she moves slowly. Patient reports that she has noticed a very mild headache since onset of the symptom. She denies any other pain. She has had mild intermittent diarrhea over the past few days. Patient reports that she has no other symptoms and has had no recent illness. She denies fevers, shortness of breath, cough, vomiting, constipation, rash, numbness, localized weakness. Patient reports that she has had vertigo in the past years ago, but this does not feel like her typical vertigo to her. She has no sensation that the room is spinning or that she is spinning or of any inappropriate movement. She reports that while she is seated she feels fairly normal. Patient reports that she has no cardiac history history of stroke, or blood clots. Related Data Home Medications Medication Instructions Recorded Confirmed multivitamin [Daily Multiple] 1 ea PO DAILY 07/24/15 07/12/19 trazodone 100 mg PO DAILY tab-cap 07/24/15 07/12/19 fexofenadine [Renata Allergy] 180 mg PO DAILY 01/19/16 07/12/19 levalbuterol tartrate [Xopenex HFA] 2 puff INHALATION PRN PRN 01/19/16 07/12/19 turmeric root extract 1,000 mg PO DAILY 01/19/16 07/12/19 montelukast 10 mg PO DAILY 07/28/17 07/12/19 vitamin D3-vitamin K2 1 tab PO DAILY 04/17/18 07/12/19 calcium carbonate [Calcium 600] 1 mg PO DAILY 03/14/19 07/12/19 lansoprazole 1 mg PO BID 03/14/19 07/12/19 vitamin [id number] acid tab PO 03/14/19 04/22/19 Allergies Allergy/AdvReac Type Severity Reaction Status Date / Time tree and shrub pollen Allergy Unverified 07/12/19 20:29 gluten AdvReac Severe Swelling/Ed Verified 07/12/19 20:29 wilson lactase [From Dairy Aid] AdvReac Severe Swelling/Ed Verified 07/12/19 20:29 wilson soy AdvReac Severe Swelling/Ed Verified 07/12/19 20:29 wilson cigarette smoke AdvReac Mild Wheezing Verified 07/12/19 20:29 minerals [From Enviro Stress] AdvReac Mild Wheezing Verified 07/12/19 20:29 mold AdvReac Mild Wheezing Verified 07/12/19 20:29 Penicillins AdvReac Mild Skin Rash Verified 07/12/19 20:29 vitamin B complex and C AdvReac Mild Wheezing Verified 07/12/19 20:29 [From Enviro Stress] vitamin E (d-alpha AdvReac Mild Wheezing Verified 07/12/19 20:29 tocopherol) [From Enviro Stress] grass Allergy Uncoded 07/12/19 20:29 antidepressents AdvReac Severe Swelling/Ed Uncoded 07/12/19 20:29 wilson chocolate liquor/dark AdvReac Severe Anaphylaxsi Uncoded 07/12/19 20:29 s friuts seeds AdvReac Severe Swelling/Ed Uncoded 07/12/19 20:29 wilson leguimes AdvReac Severe Anaphylaxsi Uncoded 07/12/19 20:29 s muscle relaxaten AdvReac Severe Dizziness/L Uncoded 07/12/19 20:29 ightheade nuts AdvReac Severe Anaphylaxsi Uncoded 07/12/19 20:29 s peanuts AdvReac Severe Anaphylaxsi Uncoded 07/12/19 20:29 s pig meats AdvReac Severe Anaphylaxsi Uncoded 07/12/19 20:29 s pitted fruits AdvReac Severe Anaphylaxsi Uncoded 07/12/19 20:29 s seeds AdvReac Severe Swelling/Ed Uncoded 07/12/19 20:29 wilson smoked meats AdvReac Severe Anaphylaxsi Uncoded 07/12/19 20:29 s pain meds AdvReac Intermediate Nausea Uncoded 07/12/19 20:29 animals AdvReac Mild Wheezing Uncoded 07/12/19 20:29 dust AdvReac Mild Wheezing Uncoded 07/12/19 20:29 mildew AdvReac Mild Wheezing Uncoded 07/12/19 20:29 General Stated Complaint: Dizzy/Sync HUBERT: 3 Review of Systems Narrative: Constitutional: denies fevers Eyes: denies eye pain ENT: denies ear pain, ear fullness, hearing loss, tinnitus, dental pain, sore throat, speech changes Cardiovascular: denies chest pain Respiratory: denies SOB, cough GI: denies abdominal pain, vomiting, diarrhea : denies flank pain MSK: denies back pain, neck pain, arthralgias, myalgias Skin: denies rash Neuro: denies numbness, focal weakness, vertigo, reports feeling off balance while standing [facility] Medical History Pain in metatarsus of left foot (Acute ~07/2018) Pain in toe of left foot (Acute ~07/2018) Social History Smoking/Tobacco Use Status: Never Alcohol Intake: never Drug use: Never Do you feel safe at home: Yes Do you feel safe in your relationship?: Yes Exam Narrative Exam Narrative: Constitutional: well and [id number], pleasant, conversing normally HENT: head atraumatic/normocephalic/normal inspection, mucous membranes moist Eyes: conjunctiva normal, sclera normal, pupils 3mm b/l ERRL, EOMI, no nystagmus Neck: no stridor, normal ROM, trachea midline Chest: normal inspection Resp: normal work of breathing, LCTAB Cardio: normal rate, normal rhythm, no murmur appreciated Skin: warm, dry, normal color, no rash Neuro: alert, not altered, CN 2-12 intact, motor 5/5 UEs and LEs, normal tone, normal finger to nose b/l, normal heel to parsons b/l, wide based gait, +romberg, no pronator drift Ext: no edema, DENTON Psych: normal mood, normal affect, normal behavior Course Vital Signs Vital signs: Vital Signs Temperature 36.6 C 07/12/19 19:08 Pulse 69 07/12/19 19:08 Respiratory Rate 18 07/12/19 19:08 Blood Pressure 153/78 H 07/12/19 19:08 Pulse Oximetry 99 07/12/19 19:08 Temperature 36.6 C 07/12/19 19:08 Temperature Source Temporal Artery Scan 07/12/19 19:08 Pulse 69 07/12/19 19:08 Respiratory Rate 18 07/12/19 19:08 Respiratory Effort 07/12/19 19:19 Blood Pressure 153/78 H 07/12/19 19:08 Blood Pressure Position Sitting 07/12/19 19:08 Pulse Oximetry 99 07/12/19 19:08 Oxygen Delivery Method Room Air 07/12/19 19:08 Oxygen Flow Rate 0 07/12/19 19:08 Pain Level 0 07/12/19 19:08
--- NOTE | 2019-07-12 19:30 | DI.CT_ITS ---
EXAM: CT HEAD - STROKE PROTOCOL CLINICAL HISTORY: loss of balance, sudden onset. TECHNIQUE: Imaging Protocol: Axial computed tomography images with coronal and sagittal reformatted images were created and reviewed COMPARISON: No exams were available for comparison FINDINGS: Ventricles and Extra axial spaces: Normal in size and morphology for the patient's age. Hemorrhage: None. Cerebral parenchyma: Normal. Midline shift: None. Brainstem/Cerebellum: Normal. Calvarium: Normal. Visualized Paranasal sinuses/Mastoids: Clear. Soft Tissues: Unremarkable. IMPRESSION: No acute intracranial process. RADIATION DOSE DELIVERED: 677.23mGy.cm Total DLP DATA REPOSITORY: All CT scans at this facility are submitted to the National Radiology Data Registry (NRDR) Dose Index Registry (DIR) with the [employer] [place] [employer] (ACR). RADIATION OPTIMIZATION: All CT scans at this facility use at least one of these dose optimization te chniques: automated exposure control; mA and/or kV adjustment per patient size (includes targeted exa ms where dose is matched to clinical indication); or iterative reconstruction.
[2019-07-12 19:52] LABS: Abs Immature Grans 0.01 k/cumm (0.0-0.09); Absolute Basophil Count 0.05 k/cumm (0.0-0.2); Absolute Eosinophil Count 0.24 k/cumm (0.0-0.7); Absolute Lymphocyte Count 2.88 k/cumm (1.2-3.4); Absolute Monocyte Count 0.59 k/cumm (0.11-0.7); Absolute Neutrophil Count 1.87 k/cumm (1.2-6.7); Basophils % 0.9; Eosinophils % 4.3; HGB 12.8 g/dL (12.0-15.5); Immature Grans % 0.2 %; Lymphocytes % 51.1; Mean Corp. HGB Concentration 33.7 g/dL (32.0-36.0); Mean Platelet Volume 11.7 fL (8.0-11.0); Monocytes % 10.5; Platelet Count 236 x1000/uL (130-400); RBC 4.27 m/cumm (4.00-5.20); RBC Distribution Width 13.1 % (11.7-14.6); White Blood Cell Count 5.64 k/cumm (4.4-10.8)
[2019-07-12 20:00] LABS: Prothrombin Time 10.2 sec (9.3-11.0)
[2019-07-12 20:01] LABS: ALT 26 U/L (14-59); AST 17 U/L (15-37); Albumin 3.7 g/dL (3.4-5.0); Alkaline Phosphatase 117 U/L (46-116); Anion Gap 8.7 mmol/L (3-11); BUN 19 mg/dL (7-18); Bilirubin, Total 0.3 mg/dL (0.2-1.0); CO2 25.3 mmol/L (21.0-32.0); CREATININE 1.38 mg/dL (0.55-1.02); Calcium 8.8 mg/dL (8.5-10.1); Chloride 104 mmol/L (98-107); Estimated GFR 38.61 (mL/min/1.73m2); Glucose 101 mg/dL (74-106); Potassium 3.5 mmol/L (3.5-5.1); Sodium 138 mmol/L (136-145); Total Protein 6.7 g/dL (6.4-8.2)
[2019-07-12] MEDS: Meclizine 25 MG TAB PO (20:15)
--- NOTE | 2019-07-12 20:17 | DI.VRAD_ITS ---
PROCEDURE INFORMATION: Exam: CT Head Without Contrast Exam date and time: 07/12/2019 7:59 PM Age: 64 years old Clinical indication: Dizziness; Patient HX: Loss of balance, sudden onset TECHNIQUE: Imaging protocol: Computed tomography of the head without contrast. Other technique: STROKE PROTOCOL was implemented. COMPARISON: CT HEAD AND CSPINE W/O CONTRAST 05/10/2016 12:50 PM FINDINGS: Brain: Normal. No hemorrhage. Unremarkable white matter. No mass effect. Ventricles: Normal. No ventriculomegaly. Bones/joints: Unremarkable. No acute fracture. Sinuses: Visualized sinuses are unremarkable. No fluid levels. Mastoid air cells: Visualized mastoid air cells are well aerated. Orbits: Unremarkable. Soft tissues: Unremarkable. IMPRESSION: No acute intracranial abnormality. ASSESSMENT: ASPECTS ([place] Stroke Program Early CT Score) is 10. Dictated and Authenticated by: Sandip Bowman MD. Ordering:LIZY Manning MD
== END 2019-07-12 21:05 ==
LOC: ER 19:30
PROVIDERS: Emergency Provider Student in an Organized Health Care Education/Training Program; PCP Family Medicine
DX: R26.89 Other abnormalities of gait and mobility (principal); R51 Headache; I63.9 Cerebral infarction, unspecified; R19.7 Diarrhea, unspecified
CPT/HCPCS: 36415; 80053; 93005; 99285; 70450; 85025; 85610; 93010; 99284

== ENCOUNTER 2019-07-20 02:29 | Outpatient (CLI) | payer OTHER, SELFPAY ==
--- NOTE | 2019-07-20 13:15 | DI.CT_ITS ---
EXAM: CT CERVICAL SPINE WO CLINICAL HISTORY: [place]NL [place] [facility] [place] R93.89, ATTN: C4 TECHNIQUE: CT examination of the cervical spine was performed utilizing multislice acquisition and m ultiplanar reconstruction. COMPARISON: CT HEAD AND CSPINE W/O CONTRAST from 05/10/[address] HEAD - STROKE PROTOCOL from 07/12/2019 MR MRI BRAIN WO CONTRAST from 07/13/2019 FINDINGS: Recent MRI performed at [facility] showed signal abnormalities in C4 vertebral body with hig h signal on T2 weighted imaging and low signal on T1 weighted imaging. These images were not availab le for review today; however, I do note that there is predominantly vertical low-attenuation in C4 ve rtebral body with a pattern highly suggestive of vertebral body hemangioma. Additionally the finding s are unchanged in comparison with prior CT of the cervical spine of April 2016. There is no evidenc e of an aggressive or destructive lesion. There is multilevel disc space narrowing throughout the cervical spine, most marked at C5-6 level whe re there are prominent endplate osteophytes posteriorly as well. No gross spinal stenosis by CT crit eria. No gross neural foraminal stenosis by CT criteria. No evidence of fracture or dislocation. N o disc herniation identified. Visualized lung apices show mild scarring but are otherwise unremarkable. Tracheolaryngeal structure s appear intact. No cervical mass or adenopathy. IMPRESSION: C4 vertebral body hemangioma with stable appearance since 2016. Disc degenerative changes most marked at C5-6. No destructive lesion identified in the cervical spine.
== END 2019-07-20 02:49 ==
PROVIDERS: PCP Family Medicine; Visit Provider Physician Assistant Medical
DX: M50.322 Other cervical disc degeneration at C5-C6 level (principal); D18.09 Hemangioma of other sites
CPT/HCPCS: 72125

== ENCOUNTER 2019-08-19 08:55 | Outpatient (REF) | payer OTHER, SELFPAY ==
[2019-08-19 19:15] LABS: Anion Gap 14.2 mmol/L (3-11); BUN 21 mg/dL (7-18); CO2 21.8 mmol/L (21.0-32.0); CREATININE 1.23 mg/dL (0.55-1.02); Calcium 9.8 mg/dL (8.5-10.1); Chloride 107 mmol/L (98-107); Glucose 97 mg/dL (74-106); Hemoglobin A1C 5.3 % (3.8-5.6); Potassium 4.7 mmol/L (3.5-5.1); Sodium 143 mmol/L (136-145)
== END 2019-08-19 09:15 ==
LOC: NCHCN 08:55
PROVIDERS: PCP Family Medicine; Visit Provider Family Medicine
DX: E16.2 Hypoglycemia, unspecified (principal); R42 Dizziness and giddiness; H53.8 Other visual disturbances; Z11.59 Encounter for screening for other viral diseases
CPT/HCPCS: 80048; 83036; 86787

== ENCOUNTER 2019-09-01 09:21 | Outpatient (REF) | payer OTHER, SELFPAY ==
[2019-09-03 17:34] LABS: C-Peptide 2.9 ng/mL (1.1 - 4.4)
[2019-09-09 09:13] LABS: Insulin 7.1 uIU/mL (<29.0)
== END 2019-09-01 09:41 ==
LOC: NCHCN 09:21
PROVIDERS: PCP Family Medicine; Visit Provider Family Medicine
DX: E16.2 Hypoglycemia, unspecified (principal)
CPT/HCPCS: 83525; 84681

== ENCOUNTER 2019-09-09 00:22 | Outpatient (CLI) | payer OTHER, SELFPAY ==
--- NOTE | 2019-09-09 | DI.DEXA_ITS ---
EXAM: XR DEXA BONE DENSITY W/WO HANY CLINICAL HISTORY: OSTEOPENIA, M85.80 TECHNIQUE: COMPARISON: Comparison examination 07/02/2016. FINDINGS: Lateral Spine Image: Unremarkable. No compression deformities identified. Left hip: Total T-Score: -2.0. Compared with -1.4 on the prior examination. Total Z-Score: -0.8 T- and Z-scores: Consistent with osteopenia and increased fracture risk. Lumbar Spine: Total T-Score: -2.1. Compared with -1.9 on the prior examination. Total Z-Score: -0.4 T- and Z-scores: Consistent with osteopenia and increased fracture risk. IMPRESSION: Osteopenia of the lumbar spine and left hip.
== END 2019-09-09 00:42 ==
PROVIDERS: PCP Family Medicine; Visit Provider Physician Assistant Medical
DX: M85.88 Other specified disorders of bone density and structure, other site (principal)
CPT/HCPCS: 77080

== ENCOUNTER 2021-11-14 14:00 | Outpatient (RCR) | payer MEDICARE, BC, SELFPAY | END 2021-11-16 23:59 | disposition home or self-care (01) | LOC: PRC 14:00 | PROVIDERS: PCP Family Medicine; Referring Provider Student in an Organized Health Care Education/Training Program; Visit Provider Student in an Organized Health Care Education/Training Program | DX: J45.909 Unspecified asthma, uncomplicated (principal) | CPT/HCPCS: 94626 ==

== ENCOUNTER 2021-12-17 14:00 | Outpatient (RCR) | payer MEDICARE, BC, SELFPAY ==
--- NOTE | 2021-12-11 07:45 | W.CARDREHAB ---
Date of service: 12/10/21 Time of Service: 14:00 Cardiopulmonary Rehabilitation Note Narrative: I met with the patient today prior to their pulmonary rehab session in the pulmonary rehab suite. We reviewed their progress in the Pulmonary Rehabilitation Program. They report that they are doing well in the program thus far and enjoying the activity and learning. The patient is doing well thus far in the pulmonary rehabilitation program and does seem to be making positive strives. It is my opinion that the patient should continue the program through completion. Plans for after the program is completed include: continue to exercise and utilize breathing techniques leaned. She will be offered to take part in the maintenance program if interested. We reviewed the advanced directive and its importance. All questions and/or concerns were addressed. Patient is satisfied with the program thus far. No changes to program at this time.
== END 2021-12-17 23:59 | disposition home or self-care (01) ==
LOC: PRC 14:00
PROVIDERS: PCP Family Medicine; Visit Provider Student in an Organized Health Care Education/Training Program
DX: J45.909 Unspecified asthma, uncomplicated (principal)
CPT/HCPCS: 94626

== ENCOUNTER 2022-01-14 14:19 | Outpatient (RCR) | payer MEDICARE, BC, SELFPAY | END 2022-01-16 23:59 | disposition home or self-care (01) | LOC: PRC 14:19 | PROVIDERS: PCP Family Medicine; Visit Provider Student in an Organized Health Care Education/Training Program | DX: J45.909 Unspecified asthma, uncomplicated (principal) | CPT/HCPCS: 94626 ==

== ENCOUNTER 2022-02-04 14:00 | Outpatient (RCR) | payer MEDICARE, BC, SELFPAY | END 2022-02-16 23:59 | disposition home or self-care (01) | LOC: PRC 14:00 | PROVIDERS: PCP Family Medicine; Referring Provider Student in an Organized Health Care Education/Training Program; Visit Provider Student in an Organized Health Care Education/Training Program | DX: J45.909 Unspecified asthma, uncomplicated (principal); Z51.89 Encounter for other specified aftercare | CPT/HCPCS: 94626 ==

== ENCOUNTER 2022-03-18 14:00 | Outpatient (RCR) | payer MEDICARE, BC, SELFPAY | END 2022-03-19 23:59 | disposition home or self-care (01) | LOC: PRC 14:00 | PROVIDERS: PCP Family Medicine; Referring Provider Student in an Organized Health Care Education/Training Program; Visit Provider Student in an Organized Health Care Education/Training Program | DX: J45.909 Unspecified asthma, uncomplicated (principal); Z51.89 Encounter for other specified aftercare | CPT/HCPCS: 94626 ==

== ENCOUNTER 2022-03-22 14:00 | Outpatient (RCR) | payer MEDICARE, BC, SELFPAY ==
--- NOTE | 2022-03-25 14:22 | W.PFT ---
Date of service: 03/22/22 Time of Service: 14:05 Pulmonary Function Test Result Requesting Provider Johny Indications: Ending pulmonary rehab Interpretation Spirometry: There is moderate airflow limitation. Impression Moderate airflow obstruction. Note: When compared to 10/15/21, there is improvement in both the FEV1 and FVC. Clinical Correlation therefore is recommended.
== END 2022-04-16 23:59 | disposition home or self-care (01) ==
LOC: PRC 14:00
PROVIDERS: PCP Family Medicine; Referring Provider Student in an Organized Health Care Education/Training Program; Visit Provider Student in an Organized Health Care Education/Training Program
DX: J44.9 Chronic obstructive pulmonary disease, unspecified (principal)
CPT/HCPCS: 94626

== ENCOUNTER 2022-10-14 21:03 | Outpatient (REF) | payer MEDICARE, BC, SELFPAY ==
[2022-10-14 19:46] LABS: Abs Immature Grans 0.01 10^3/uL (0.0-0.06); Absolute Basophil Count 0.07 10^3/uL (0.0-0.2); Absolute Eosinophil Count 0.15 10^3/uL (0.0-0.7); Absolute Lymphocyte Count 2.27 10^3/uL (1.2-3.4); Absolute Monocyte Count 0.54 10^3/uL (0.1-0.8); Absolute Neutrophil Count 2.54 10^3/uL (1.2-6.7); Basophils % 1.3; Eosinophils % 2.7; HCT 39.4 % (36.0-46.0); HGB 13.2 g/dL (11.2-15.7); Immature Grans % 0.2; Lymphocytes % 40.7; MCHC 33.5 % (32.0-36.0); MCV 90 fL (80-95); MPV 12.4 fL (8.0-11.0); Monocytes % 9.7; Neutrophils % 45.4; Platelet Count 222 10^3/uL (130-400); RDW 12.5 % (11.7-14.6); RDW-SD 41.1 fL; WBC 5.58 10^3/uL (4.4-10.8)
[2022-10-14 21:11] LABS: Anion Gap 8.7 mmol/L (3-11); BUN 20 mg/dL (7-18); CO2 26.3 mmol/L (21.0-32.0); CREATININE 1.4 mg/dL (0.55-1.02); Calcium 9.8 mg/dL (8.5-10.1); Chloride 106 mmol/L (98-107); Estimated GFR 41.49 (mL/min/1.73m2); Glucose 87 mg/dL (74-106); Magnesium 2.2 mg/dL (1.8-2.4); Potassium 4.1 mmol/L (3.5-5.1); Sodium 141 mmol/L (136-145); Vitamin B12 1241 pg/mL (193-986)
[2022-10-14 21:51] LABS: Vitamin D 25 Total 38.2 ng/mL (30-100)
== END 2022-10-14 21:04 | disposition home or self-care (01) ==
LOC: NCHCN 21:03
PROVIDERS: PCP Family Medicine; Visit Provider Nurse Practitioner Family
DX: Z00.00 Encounter for general adult medical examination without abnormal findings (principal); N18.32 Chronic kidney disease, stage 3b; J45.50 Severe persistent asthma, uncomplicated; F32.9 Major depressive disorder, single episode, unspecified; E87.5 Hyperkalemia; R73.03 Prediabetes; E03.9 Hypothyroidism, unspecified
CPT/HCPCS: 80048; 82306; 82607; 83735; 85025

== ENCOUNTER 2023-01-13 16:42 | Outpatient (REF) | payer MEDICARE, BC, SELFPAY ==
[2023-01-13 17:43] LABS: Calculated LDL 158 mg/dL (<100); Cholesterol 228 mg/dL (<200); HDL Cholesterol 56 mg/dL (40-60); Triglyceride 71 mg/dL (<150)
== END 2023-01-13 16:43 | disposition home or self-care (01) ==
LOC: LBN 16:42
PROVIDERS: PCP Family Medicine; Visit Provider Nurse Practitioner Family
DX: I10 Essential (primary) hypertension (principal)
CPT/HCPCS: 80061

== ENCOUNTER 2023-07-31 13:04 | Outpatient (REF) | payer MEDICARE, BC, SELFPAY ==
[2023-07-31 15:10] LABS: Anion Gap 8.4 mmol/L (3-11); BUN 17 mg/dL (7-18); CO2 26.6 mmol/L (21.0-32.0); CREATININE 1.6 mg/dL (0.55-1.02); Calcium 8.8 mg/dL (8.5-10.1); Chloride 108 mmol/L (98-107); Estimated GFR 35.13 (mL/min/1.73m2); Glucose 74 mg/dL (74-106); Potassium 4.2 mmol/L (3.5-5.1); Sodium 143 mmol/L (136-145)
== END 2023-07-31 13:05 | disposition home or self-care (01) ==
LOC: NCHCN 13:04
PROVIDERS: PCP Family Medicine; Visit Provider Nurse Practitioner Family
DX: I10 Essential (primary) hypertension (principal); Z51.81 Encounter for therapeutic drug level monitoring
CPT/HCPCS: 80048

== ENCOUNTER 2023-09-08 13:37 | Outpatient (REF) | payer MEDICARE, BC, SELFPAY ==
--- OUTSIDE RECORDS SUMMARY | 2023-09-08 13:46 | XMS_ITS | Encounter Summary ---
Author Organization [facility] Address [address] [place] [address] Care Team Providers Care Associate Designer Name Role Phone Kaylene Pinedo MD Primary Care Provider [phone] Reason for Visit * Reason Onset Date Comments COVID-19 10/16/2019 Encounter Details Date Type Department Care Team (Late st Contact Info) Description 10/16/2019 Telephone [facility] [address] [place] [address] Nikky Kaplan MD [address] [facility], [address] [place] [address] COVID-19 Social History Tobacco Use Types Packs/Day Years Used Date Smoking Tobacco: Never Smokeless Tobacco: Never Interpersonal Safety Answer Date Record ed Physically Hurt Never 09/19/2019 Verbally Threaten Not on file 09/19/2019 Sex and Gender Information Value Date Recorded Sex Assigned at Not on file Gender Identity Not on file Sexual Orientation Not on file documented as of this encounter Functional Status Functional Status Response Date of Assess ment Because of a physical, menta l, or emotional condition, does this person have difficulty doing errands alone such as visiting a doctor's office or shopping? Yes 11/05/2016 Cognitive Status Response Date of Assessm ent Because of a physical, menta l, or emotional condition, does this person have serious difficulty concentrating, remembering, or making decisions? Yes 11/05/2016 documented as of this encounter Miscellaneous Notes * Telephone Encounter - Janie Simpson - 10/20/2019 1022 EDT Called the patient to schedule. Left a VM. This is X3 attempt to contact. * Telephone Encounter - Janie Simpson - 10/18/2019 1142 EDT Called patient to schedule COVID-19 testing. Requested a call back @[phone]. This is our 2nd attempt at contacting patient * Telephone Encounter - Patricia Johnson - 10/16/2019 1349 EDT Patient called and was unaware she needed a covid test for PFT. Will call a provider Friday as she is not sure a PFT is neccessary at this time. Patient will call covid back on Friday if she still needs to schedule. Will need order sent to [facility] in [facility]. * Telephone Encounter - Janie Simpson - 10/16/2019 1016 EDT Called patient to schedule COVID-19 testing. Requested a call back @[phone]. This is our 1st attempt at contacting patient documented in this encounter Plan of Treatment Not on file documented as of this encounter Visit Diagnoses Not on filedocumented in this encounter Care Teams Associate Designer Relationship Specialty Start Date End Date Kaylene Pinedo MD [address] [place] [address] PCP - General 08/07/16 documented as of this encounter
--- OUTSIDE RECORDS SUMMARY | 2023-09-08 13:46 | XMS_ITS | Encounter Summary ---
Author Organization [facility] Address [address] [place] [address] Care Team Providers Care Bartender Name Role Phone Kaylene Pinedo MD Primary Care Provider [phone] Encounter Details Date Type Department Care Team (Latest Contact Info) Description 08/31/2019 Travel Social History Tobacco Use Types Packs/Day Years Used Date Smoking Tobacco: Never Smokeless Tobacco: Never Sex and Gender Information Value Date Recorded Sex Assigned at Not on file Gender Identity Not on file Sexual Orientation Not on file COVID-19 Exposure Response Date Recorded In the last month, have you been in contact with someone who was confirmed or suspected to have Coronavirus / COVID-19? No / Unsure 08/31/2019 12:18 EDT documented as of this encounter Functional Status [...] Yes 11/05/2016 documented as of this encounter Plan of Treatment Not on file documented as of this encounter Visit Diagnoses Not on filedocumented in this encounter Care Teams Bartender Relationship Specialty Start Date End Date Kaylene Pinedo MD [address] [place] [address] PCP - General 08/07/16 documented as of this encounter
--- OUTSIDE RECORDS SUMMARY | 2023-09-08 13:46 | XMS_ITS | Encounter Summary ---
Author Organization [facility] Address [address] [place] [address] Care Team Providers Care Crane Oiler Name Role Phone Kaylene Pinedo MD Primary Care Provider [phone] Reason for Visit * Reason Comments Follow-up * Referral (Routine) - Closed Specialty Diagnoses / Procedures Referred By Leidy lemon Referred To Contact Orthopedic Surgery Diagnoses Hemangioma unspecified site Say Ovalles PA-C [address] [place] [address] [facility] Ortho Spine [address] [place] [address] Referral ID Status Reason Start Date Expiration Date Visits Re quested Visits Authorized [id number] Closed 1 1 Encounter Details Date Type Department Care Team (Late st Contact Info) Description 08/31/2019 12:30 EDT Office Visit [facility] Center Spine Program [place] [address] Anderson Newell MD [address] [place] [address] [place] [address] Hemangioma of bone (Primary Dx) Social History Tobacco Use Types Packs/Day Years [...] Yes 11/05/2016 documented as of this encounter Progress Notes * Anderson Newell MD - 08/31/2019 1230 EDT This office note has been dictated. Anderson Newell MD documented in this encounter Consult Notes * Anderson Newell MD - 08/31/2019 0000 EDT [facility] SPINE PROGRAM CONSULTATION - 08/31/2019 PROBLEM: 1. Incidental C4 hemangioma. 2. Chronic neck and back pain. a. Multilevel degeneration. 3. Fibromyalgia. 4. Chronic fatigue syndrome. 5. Irritable bowel syndrome. 6. Interstitial cystitis. SUBJECTIVE: The patient is a 64-year-old woman who had an episode where she lost her balance, was seen at [facility] where she underwent an evaluation to rule out a stroke, which was negative, but as part of their workup, they identified that she had a C4 hemangioma and was referred here for evaluation to assure that there was no further considerations, imaging or treatment needed in relation to the hemangioma itself, which was identified at C4. She states she does not have any currentneck pain. No fevers, chills, night sweats or weight loss. PAST MEDICAL HISTORY: Multiple allergies reviewed in [facility]. MEDICATIONS: Reviewed in [facility]. OBJECTIVE: 5/5 all upper and lower extremity muscle groups. Negative static and dynamic Romberg. Neck nontender. Negative Mercedez's. DIAGNOSTIC DATA: X-rays, CT and MRI demonstrate a C4 hemangioma, an incidental finding, no evidenceof any compression fractures. She has multilevel degenerative changes. ASSESSMENT: Woman with incidental radiographic finding of a C4 hemangioma that is not clinically symptomatic. No further evaluation or treatment or followup is necessary relative to this. PLAN: 1. Activities to tolerance. 2. No followup necessary. Anderson Newell MD 01 48 PM - Anderson Newell MD rn Dictation ID: [id number] cc: Say Ovalles PA-C, [address] [id number] Marianna Olson MD, [facility] [address] [place] [address] Kaylene Pinedo MD, [address], [place] [address] documented in this encounter Plan of Treatment Not on file documented as of this encounter Visit Diagnoses Diagnosis Hemangioma of bone- Primary Hemangioma of other sites documented in this encounter Care Teams Crane Oiler Relationship Specialty Start Date End Date Kaylene Pinedo MD [address] [place] [address] PCP - General 08/07/16 documented as of this encounter
--- OUTSIDE RECORDS SUMMARY | 2023-09-08 13:46 | XMS_ITS | Clinical Summary ---
Author Organization [facility] Address [address] [place] [address] Care Team Providers Care Assessment Director Name Role Phone Kaylene Pinedo MD Primary Care Provider [phone] Allergies Active Allergy Reactions Criticality Noted Date Comments Chocolate Flavor 10/06/2018 [place] 10/06/2018 Cheese 08/30/2016 Erythromycin Nausea Only 08/07/2016 Fish Containing Products 10/06/2018 Fluticasone Propionate 07/28/2019 Blurry vision [place] 10/06/2018 Gluten 10/06/2018 Hydrocodone 08/07/2016 Slowed breathing, heartbeat, nervousness, confusion, lightheadedness, restlessness, headache, general feeling of discomfort/illness Legumes 10/06/2018 Peas/whitman beans/black beans Melon 10/06/2018 Tree Nut 10/06/2018 Peanuts and products/all nuts and oils Other - See Comments 08/07/2016 All muscle relaxers, heart rate and breathing declines Most inhalers, causes tremors and light headedness /eye issues Most anti depressants-general feeling of discomfort/illness Contrast All pitted fruits/all dried foods Penicillins 08/07/2016 Unknown reaction, was when she was young Peanut 08/30/2016 Oxycodone-Acetaminophen 08/07/2016 Slowed breathing, heartbeat, nervousness, confusion, lightheadedness, restlessness, headache, general feeling of discomfort/illness Pork/Porcine Containing Products 10/06/2018 Beclomethasone Dipropionate Other (See Comments) 08/18/2019 Blurred vision Rice 10/06/2018 [place] 10/06/2018 Shellfish Containing Products 10/06/2018 Soy 10/06/2018 Tiotropium [place] 10/06/2018 Corticosteroids (Glucocorticoids) 08/07/2016 roid rage Hydrocodone-Acetaminophen 08/07/2016 Slowed breathing, heartbeat, nervousness, confusion, lightheadedness, restlessness, headache, general feeling of discomfort/illness Medications Medication Sig Dispensed Refills Start Date End Date Status fexofenadine (RONALD) 180 mg tablet Take 180 mg by mouth daily. Active traZODone (DESYREL) 50 mg tablet Take 50 mg by mouth at bedtime. Active EPINEPHrine (EPIPEN) 0.3 mg/0.3 mL injection Inject 0.3 mg into the muscle once as needed. Active estradiol (ESTRACE) 0.01 % (0.1 mg/gram) vaginal cream Place vaginally. 2-3 days in the evening Active levalbuterol (XOPENEX HFA) 45 mcg/actuation inhaler Inhale 90 mcg as directed as needed for Wheezing. Active montelukast (SINGULAIR) 10 mg tablet Take 10 mg by mouth daily. Active lansoprazole (PREVACID) 30 mg capsule Take 30 mg by mouth daily. Active levalbuterol (XOPENEX) 0.63 mg/3 mL nebulization Take 0.63 mg by nebulization every 4 hours as needed for Wheezing. May be albuterol-pt unsure Active MULTIVITAMIN ORAL Take by mouth. Act forest TURMERIC ORAL Take by mouth. Active ergocalciferol, vitamin D2, (VITAMIN D ORAL) Take by mouth. With vitamin k Active cyanocobalamin, vitamin B-12, (VITAMIN B12 ORAL) Take by mouth. Ac tive CALCIUM ORAL Take by mouth. Active NONFORMULARY sproutbiotic Active acetaminophen (TYLENOL) 500 mg tablet Take 500 mg by mouth every 6 hours as needed for Pain. Active predniSONE (DELTASONE) 10 mg tabletIndications:Se tu persistent asthma with (acute) exacerbation Take 40 mg po daily x 2 days, 30 mg daily x 2 days, 20 mg x 2 days, 10 mg x 2 days, 5 mg x 2 days. 21 Tab 08/18/2019 Active Additional Information Patient not taking.Reported on 08/31/2019 Active Problems Problem Noted Date Diagnosed Date Severe persistent asthma without complication Neck pain 08/27/2017 Lumbar facet arthropathy 08/07/2016 Closed compression fracture of lumbar vertebra ( HCC-CMS) 08/07/2016 Osteopenia 08/07/2016 Surgical History Surgery Date Site/Laterality Comments HYSTERECTOMY CHOLECYSTECTOMY APPENDECTOMY SINUS SURGERY HERNIA REPAIR TONSILLECTOMY AND ADENOIDECTOMY Medical History Medical History Date Comments Chronic fatigue Fibromyalgia Depression Osteopenia OCD (obsessive compulsive disorder) GERD (gastroesophageal reflux disease) Irritable bowel syndrome Interstitial cystitis Chronic kidney disease Family History Medical History Relation Comments Cancer Father High Blood Pressure Father Stroke Father Heart Disease Mother High Blood Pressure Mother Relation Status Comments Father Mother Social History Tobacco Use Types Packs/Day Years Used Date Smoking Tobacco: Never Smokeless Tobacco: Never Interpersonal Safety Answer Date Record ed Physically Hurt Never 09/19/2019 Verbally Threaten Not on file 09/19/2019 Sex and Gender Information Value Date Recorded Sex Assigned at Not on file Gender Identity Not on file Sexual Orientation Not on file Obstetrics History Last Filed Vital Signs Vital Sign Reading Time Taken Comments Blood Pressure 124/72 04/28/2019 1043 EDT Pulse 72 04/28/2019 1043 EDT Temperature 35.9 ??C (96.7 ??F) 04/28/2019 1043 EDT Respiratory Rate 20 04/28/2019 1043 EDT Oxygen Saturation 100% 04/28/2019 1043 EDT Inhaled Oxygen Concentration - - Weight 65.8 kg (145 lb) 04/28/2019 1043 EDT per pt Height 170.1 cm (5' 6.97) 10/06/2018 1340 EDT Body Mass Index 22.73 10/06/2018 1340 EDT Plan of Treatment Health Maintenance Due Date Last Done Comments Hepatitis C Screen 1955 RSV Immunization ( o r 60+ Years) (1 - 1-dose 60+ series) 2016 Fall Risk Screening 01/14/2021 COVID-19 Vaccine (2022-24 season) 2022 Advance Directives For more information, please contact: [phone] Documents on File Type Date Recorded Patient Inside Sales Agent Expl anation Advance Directive 05/27/2019 12:44 [place] Advan ce Directive for Health Care-Signed 2019-05-18 Care Teams Assessment Director Relationship Specialty Start Date End Date Kaylene Pinedo MD [address] [place] [id number] PCP - General 08/07/16
--- OUTSIDE RECORDS SUMMARY | 2023-09-08 13:46 | XMS_ITS | Encounter Summary ---
Author Organization [facility] Address [address] [place] [address] Care Team Providers Care Money Room Teller Name Role Phone Kaylene Pinedo MD Primary Care Provider [phone] Encounter Details Date Type Department Care Team (Late st Contact Info) Description 10/06/2018 Orders Only [facility] Pulmonology & Critical Care - [address] [address] Nikky Kaplan MD [address] [place] [address], [address] [place] [address] Asthma, unspecified asthma severity, unspecified whether complicated, unspecified whether persistent (Primary Dx) Social History Tobacco Use Types [...] as of this encounter Visit Diagnoses Diagnosis Asthma, unspecified asthma severity, unspecified whether complicated, unspecified whether persistent- Primary documented in this encounter Care Teams Money Room Teller Relationship Specialty Start Date End Date Kaylene Pinedo MD [address] [place] [address] PCP - General 08/07/16 documented as of this encounter
--- OUTSIDE RECORDS SUMMARY | 2023-09-08 13:46 | XMS_ITS | Encounter Summary ---
Author Organization [facility] Address [address] [place] [address] Care Team Providers Care Putter In Name Role Phone Kaylene Pinedo MD Primary Care Provider [phone] Reason for Visit * Reason Onset Date Comments Appointment Related 01/18/2019 Encounter Details Date Type Department Care Team (Late st Contact Info) Description 01/18/2019 Telephone [facility] Pulmonology & Critical Care - [address] [address] Nikky Kaplan MD [address] [place] [address], [address] [place] [address] Appointment Related Social History Tobacco Use Types Packs/Day Years [...] encounter Miscellaneous Notes * Telephone Encounter - Lydia Valencia - 01/19/2019 1331 EST Spoke with patient and gave her an appointment for 03/17/19. She said she thought she was in crisis. I suggested she contact her PCP and/or go to the nearest ED. * Telephone Encounter - Dorina Henson - 01/18/2019 1518 EST Patient would like to schedule appt with as she is having problems with her asthma.it is keeping her up at night. Please call to schedule. documented in this encounter Plan of Treatment Not on file documented as of this encounter Visit Diagnoses Not on filedocumented in this encounter Care Teams Putter In Relationship Specialty Start Date End Date Kaylene Pinedo MD [address] [place] [id number] PCP - General 08/07/16 documented as of this encounter
--- OUTSIDE RECORDS SUMMARY | 2023-09-08 13:46 | XMS_ITS | Encounter Summary ---
Author Organization [facility] Address [address] [place] [address] Care Team Providers Care Commissioning Agent Name Role Phone Kaylene Pinedo MD Primary Care Provider [phone] Reason for Visit * (Routine) - Receiving Office to Obtain Authorization Specialty Diagnoses / Procedures Referred By Leidy lemon Referred To Contact Procedures MR OUTSIDE IMAGES NEURO Unknown, Provider, Referral ID Status Reason Start Date Expiration Date Visits Requested Visits Authorized [id number] Receiving Office to Obtain Authorization 08/12/2019 1 1 Encounter Details Date Type Department Care Team (Latest Contact Info) Description 07/13/2019 - 07/13/2019 23:59 EDT Hospital Encounter [facility] Radiology - Main [place] [address] [place] [address] Discharge Disposition: Home or Self Care Social History Tobacco Use Types Packs/Day Years [...] Yes 11/05/2016 documented as of this encounter Medications at Time of Discharge Medication Sig Dispensed Refills Start Date End Date CALCIUM ORAL Take by mouth. cyanocobalamin, vitamin B-12, (VITAMIN B12 ORAL) Take by mouth. EPINEPHrine (EPIPEN) 0.3 mg/0.3 mL injection Inject 0.3 mg into the muscle once as needed. ergocalciferol, vitamin D2, (VITAMIN D ORAL) Take by mouth. With vitamin k estradiol (ESTRACE) 0.01 % (0.1 mg/gram) vaginal cream Place vaginally. 2-3 days in the evening fexofenadine (RONALD) 180 mg tablet Take 180 mg by mouth daily. lansoprazole (PREVACID) 30 mg capsule Take 30 mg by mouth daily. levalbuterol (XOPENEX HFA) 45 mcg/actuation inhaler Inhale 90 mcg as directed as needed for Wheezing. levalbuterol (XOPENEX) 0.63 mg/3 mL nebulization Take 0.63 mg by nebulization every 4 hours as needed for Wheezing. May be albuterol-pt unsure montelukast (SINGULAIR) 10 mg tablet Take 10 mg by mouth daily. MULTIVITAMIN ORAL Take by mouth. NONFORMULARY sproutbiotic traZODone (DESYREL) 50 mg tablet Take 50 mg by mouth at bedtime. TURMERIC ORAL Take by mouth. fluticasone propionate (FLOVENT HFA) 44 mcg/actuation inhaler Inhale 1 Puff as directed 2 times daily. 1 Inhaler 11 04/28/2019 08/18/2019 documented as of this encounter Discharge Disposition Disposition Code Departure Means Destination Home or Self Care documented in this encounter Plan of Treatment Not on file documented as of this encounter Procedures Procedure Name Priority Date/Time Associated Diagnosis Comments MR OUTSIDE IMAGES NEURO Routine 08/12/2019 6:47 EDT documented in this encounter Results * MR OUTSIDE IMAGES NEURO (08/12/2019 6:47 EDT) Narrative ELISHA - 08/12/2019 6:47 EDT This is a non-reportable exam. Provider Unknown MD CARRASQUILLO OTHER IMAGING OR DERABLES ELISHA documented in this encounter Visit Diagnoses Not on filedocumented in this encounter Care Teams Commissioning Agent Relationship Specialty Start Date End Date Kaylene Pinedo MD [address] [place] [address] PCP - General 08/07/16 documented as of this encounter
--- OUTSIDE RECORDS SUMMARY | 2023-09-08 13:46 | XMS_ITS | Referral Summary ---
Author Organization [facility] Address [address] [place] [address] Care Team Providers Care Parent Aide Name Role Phone Kaylene Pinedo MD Primary Care Provider [phone] Allergies Active Allergy Reactions Criticality Noted Date Comments Chocolate Flavor 10/06/2018 [place] 10/06/2018 Cheese 08/30/2016 Erythromycin Nausea Only 08/07/2016 [...] Shellfish Containing Products 10/06/2018 Soy 10/06/2018 Tiotropium [place] 10/06/2018 Corticosteroids (Glucocorticoids) 08/07/2016 roid rage Hydrocodone-Acetaminophen [...] lumbar vertebra ( HCC-CMS) 08/07/2016 Osteopenia 08/07/2016 Social History Tobacco Use Types Packs/Day Years Used Date Smoking Tobacco: Never Smokeless Tobacco: Never Interpersonal Safety Answer Date Record ed Physically Hurt Never 09/19/2019 Verbally Threaten Not on file 09/19/2019 Sex and Gender Information Value Date Recorded Sex Assigned at Not on file Gender Identity Not on file Sexual Orientation Not on file Last Filed Vital Signs Vital Sign Reading [...] Body Mass Index 22.73 10/06/2018 1340 EDT Functional Status Functional Status Response Date of [...] concentrating, remembering, or making decisions? Yes 11/05/2016 Plan of Treatment Not on file Advance Directives For more information, please contact: [phone] Documents on File Type Date Recorded Patient Appraisal Analyst Expl anation Advance Directive 05/27/2019 12:44 [place] Antonella ce Directive for Health Care-Signed 2019-05-18 Care Teams Parent Aide Relationship Specialty Start Date End Date Kaylene Pinedo MD [address] [place] [address] PCP - General 08/07/16
--- OUTSIDE RECORDS SUMMARY | 2023-09-08 13:46 | XMS_ITS | Encounter Summary ---
Author Organization [facility] Address [address] [place] [address] Care Team Providers Care Financial Sales Professional Name Role Phone Kaylene Pinedo MD Primary Care Provider [phone] Encounter Details Date Type Department Care Team (Late st Contact Info) Description 07/28/2019 Orders Only [facility] Pulmonology & Critical Care - [address] [address] Rosaura Turcios RN Severe persistent asthma without complication (Primary Dx); Asthma, unspecified asthma severity, unspecified whether complicated, unspecified whether persistent Social History Tobacco Use Types Packs/Day Years [...] as of this encounter Progress Notes * Rosaura Turcios, RN - 07/28/2019 1716 EDT co documented in this encounter Plan of Treatment Not on file documented as of this encounter Visit Diagnoses Diagnosis Severe persistent asthma without complication- Primary Asthma, unspecified asthma severity, unspecified whether complicated, unspecified whether persistent documented in this encounter Care Teams Financial Sales Professional Relationship Specialty Start Date End Date Kaylene Pinedo MD [address] [place] [address] PCP - General 08/07/16 documented as of this encounter
--- OUTSIDE RECORDS SUMMARY | 2023-09-08 13:46 | XMS_ITS | Encounter Summary ---
Author Organization [facility] Address [address] [place] [address] Care Team Providers Care Pipeman Name Role Phone Kaylene Pinedo MD Primary Care Provider [phone] Encounter Details Date Type Department Care Team ([facility] st Contact Info) Description 10/01/2018 Results Only Imaging [facility]- [facility] [phone] Unknown, Provider, Social History Tobacco Use Types Packs/Day Years [...] as of this encounter Plan of Treatment Pending Results Name Type Priority Associated Diagnoses Date /Time OUTSIDE CD - OTHER CHEST Imaging 10/01/2018 10:59 EDT documented as of this encounter Visit Diagnoses Not on filedocumented in this encounter Care Teams Pipeman Relationship Specialty Start Date End Date Kaylene Pinedo MD [address] [place] [address] PCP - General 08/07/16 documented as of this encounter
--- OUTSIDE RECORDS SUMMARY | 2023-09-08 13:46 | XMS_ITS | Encounter Summary ---
Author Organization [facility] Address [address] [place] [address] Care Team Providers Care Equipment Validation Specialist Name Role Phone Kaylene Pinedo MD Primary Care Provider [phone] Reason for Referral * (Routine) - Authorization Not Required Specialty Diagnoses / Procedures Referred By [facility] t Referred To Contact Diagnoses Severe persistent asthma without complication Procedures PULMONARY FUNCTION TESTING Nikky Kaplan MD [address] [place] [phone] Referral ID Status Reason Start Date Expiration Date Visits Requested Visits Authorized [id number] Authorization Not Required 04/28/2019 1 1 Reason for Visit * Reason Comments Asthma Encounter Details Date Type Department Care Team (Late st Contact Info) Description 04/28/2019 10:45 EDT Office Visit [facility] Pulmonology & Critical Care - [address] [id number] Nikky Kaplan MD [address] [place] [phone] Severe persistent asthma without complication (Primary Dx) Social History Tobacco Use Types Packs/Day Years Used Date Smoking Tobacco: Never Smokeless Tobacco: Never Sex and Gender Information Value Date Recorded Sex Assigned at Not on file Gender Identity Not on file Sexual Orientation Not on file documented as of this encounter Last Filed Vital Signs Vital Sign Reading Time Taken Comments Blood Pressure 124/72 04/28/2019 1043 EDT Pulse 72 04/28/2019 1043 EDT Temperature 35.9 ??C (96.7 ??F) 04/28/2019 1043 EDT Respiratory Rate 20 04/28/2019 1043 EDT Oxygen Saturation 100% 04/28/2019 1043 EDT Inhaled Oxygen Concentration - - Weight 65.8 kg (145 lb) 04/28/2019 1043 EDT per pt Height - - Body Mass Index 22.73 10/06/2018 1340 EDT documented in this encounter Functional Status Functional Status Response [...] Yes 11/05/2016 documented as of this encounter Ordered Prescriptions Prescription Sig Dispensed Refills Start Date End Da te fluticasone propionate (FLOVENT HFA) 44 mcg/actuation inhaler Inhale 1 Puff as directed 2 times daily. 1 Inhaler 11 04/28/2019 08/18/2019 documented in this encounter Progress Notes * Nikky Kaplan MD - 04/28/2019 1045 EDT DIVISION OF PULMONOLOGY? PROGRESS/FOLLOWUP NOTE -04/28/2019 ?? Kaylene Shahida [address] [facility] [address] Pulmonary History Severe persistent asthma - extensive triggers - IgE 454 - absolute Eos 150 - chronic sinus disease with remote surgery, unable to tolerate rinses - reflux, controlled on PPI - adverse reactions to Spiriva, Symbicort, Flovent - tolerates Xopenex INTERVAL HISTORY: Ruthann Wolf was seen in pulmonary clinic today for evaluation of the above medical problems. They were last seen in the pulmonary clinic in September of 2018. At that time, we had a long discussionabout options for treatment of her asthma, including Breo Ellipta, or nebulized ICS and LABA. She was going to discuss these options with her local pulmonologiest. In the interval since the last visit, she has been doing ok. She had a rough time for a while in the fall, with increased symptoms, needing a course of steroids, and also needing to resume her Flovent. She was using the 110 mcg dose, but can only tolerate it for a few weeks before she developed significant side effects. These includeeye pain, visual changes, and headaches. A few weeks ago she was again doing quite poorly, but is doing a little bit better at this point. She is currently using the nebulizer twice a day with a rescue MDI in between. Her local digital experience manager Dr. Christianson has unfortunately left. Thus she is opting to follow-up here. She is interested in pulmonary rehab, and has not done that before. She has done ballet in the past been doing well. Right now she has an injured right foot, which is still healing. A 12 point review of systems was obtained and was negative except as noted above. The past medical, social and family history were reviewed and updated in the chart. Medications: has a current medication list which includes the following prescription(s): calcium, cyanocobalamin (vitamin b-12), epinephrine, ergocalciferol (vitamin d2), estradiol, fexofenadine, lansoprazole, levalbuterol, levalbuterol, montelukast, multivitamin, NONFORMULARY, trazodone, and turmeric. Objective:?? PHYSICAL EXAMINATION: A well-nourished female in no respiratory distress. Vital signs: BP 124/72 Pulse 72 Temp 35.9 ??C (96.7 ??F) (Tympanic) Resp 20 Wt 65.8 kg (145lb) Comment: per pt SpO2 100% BMI 22.73 kg/m?? HEENT exam: Normocephalic, atraumatic.anicteric sclerae. Lungs exam: clear to ausculation. No crackles or wheeze Cardiovascular exam: Regular rate and rhythm without murmurs, rubs, or gallops. Abdomen exam: Thin, soft, nontender. Extremities exam: No clubbing or edema. Neuro: Alert and oriented x 4 , normal mood and affect, moves all extremities well. Impression and Plan:??In summary, this is a 64-year-old woman with severe persistent asthma complicated by multiple drug allergies and intolerances. I agree with her that she would benefit from a controller therapy. We have opted to try the 44 mcg dose Flovent, to see if this is a dose is low enough that she can tolerate it for longer than a few weeks. She is agreeable with this plan. I will alsoplace a referral for pulmonary rehab at [facility], that she can start when her foot is healed. I will plan to see her back in about 3 months, we will also obtain pulmonary function studies at that point. Nikky Kaplan MD Pulmonary Attending ? cc: ?Kaylene Pinedo Please note: this documentation was created with the use of voice recognition software, and may contain rare hide salter errors. documented in this encounter Plan of Treatment Scheduled Orders Name Type Priority Associated Diagnoses Orde r Schedule PULMONARY FUNCTION TESTING PFT Routine Severe persistent asthma without complication 1 Occurrences starting 04/28/2019 until 04/27/2020 documented as of this encounter Visit Diagnoses Diagnosis Severe persistent asthma without complication- Primary documented in this encounter Historical Medications * This list may reflect changes made after this encounter. Medication Sig Dispensed Refills Start Date End Date NONFORMULARY sproutbiotic CALCIUM ORAL Take by mouth. cyanocobalamin, vitamin B-12, (VITAMIN B12 ORAL) Take by mouth. ergocalciferol, vitamin D2, (VITAMIN D ORAL) Take by mouth. With vitamin k TURMERIC ORAL Take by mouth. MULTIVITAMIN ORAL Take by mouth. levalbuterol (XOPENEX) 0.63 mg/3 mL nebulization Take 0.63 mg by nebulization every 4 hours as needed for Wheezing. May be albuterol-pt unsure added in this encounter Care Teams Equipment Validation Specialist Relationship Specialty Start Date End Date Kaylene Pinedo MD [address] [place] [phone] PCP - General 08/07/16 documented as of this encounter
--- OUTSIDE RECORDS SUMMARY | 2023-09-08 13:46 | XMS_ITS | Encounter Summary ---
Author Organization [facility] Address [address] [place] [address] Care Team Providers Care Road Machinery Inspector Name Role Phone Kaylene Pinedo MD Primary Care Provider [phone] Encounter Details Date Type Department Care Team ([facility] st Contact Info) Description 08/05/2020 Lab Requisition [facility] Pathology & Laboratory Medicine - [address] [address] Social History Tobacco Use Types Packs/Day Years [...] on filedocumented in this encounter Care Teams Road Machinery Inspector Relationship Specialty Start Date End Date Kaylene Pinedo MD [address] [place] [phone] PCP - General 08/07/16 documented as of this encounter
--- OUTSIDE RECORDS SUMMARY | 2023-09-08 13:46 | XMS_ITS | Encounter Summary ---
Author Organization [facility] Address [address] [place] [address] Care Team Providers Care Material Hauler Name Role Phone Kaylene Pinedo MD Primary Care Provider [phone] Reason for Visit * Reason Comments New Patient Visit * Consult (Routine) - Closed Specialty Diagnoses / Procedures Referred By Contkaleb t Referred To Contact Pulmonary Disease Diagnoses Asthma exacerbation, non-allergic, severe persistent Say Ovalles PA-C [address] [place] [address] [place] [address] [address] [place] [phone] Referral ID Status Reason Start Date Expiration Date Visits Re quested Visits Authorized [id number] Closed 1 1 Encounter Details Date Type Department Care Team (Late st Contact Info) Description 10/06/2018 14:30 EDT Office Visit [facility] Pulmonology & Critical Care - [address] [address] Nikky Kaplan MD [address] [facility], [address] [place] [address] Severe persistent asthma without complication (Primary Dx); Allergic rhinitis due to pollen, unspecified seasonality Social History Tobacco Use Types Packs/Day Years Used Date Smoking Tobacco: Never Smokeless Tobacco: Never Sex and Gender Information Value Date Recorded Sex Assigned at Not on file Gender Identity Not on file Sexual Orientation Not on file documented as of this encounter Last Filed Vital Signs Vital Sign Reading Time Taken Comments Blood Pressure 134/72 10/06/2018 1340 EDT Pulse 72 10/06/2018 1340 EDT Temperature 36.3 ??C (97.4 ??F) 10/06/2018 1340 EDT Respiratory Rate 16 10/06/2018 1340 EDT Oxygen Saturation 100% 10/06/2018 1340 EDT Inhaled Oxygen Concentration - - Weight 66.7 kg (147 lb) 10/06/2018 1340 EDT Height 170.1 cm (5' 6.97) 10/06/2018 1340 EDT Body Mass Index 23.04 10/06/2018 1340 EDT documented in this encounter [...] Yes 11/05/2016 documented as of this encounter Patient Instructions * Patient Instructions* Nikky Kaplan MD - 10/06/2018 14:30 EDT Options to consider: Breo Ellipta (dry powder inhaler with long acting bronchodilator and steroid) Nebulized steroid (budesonide) and long acting bronchodilator (arfomoterol) Consider trying nasal steroid and sinus rinse and following up with ENT documented in this encounter Progress Notes * Nikky Kaplan MD - 10/06/2018 1430 EDT DIVISION OF PULMONOLOGY? OFFICE CONSULTATION -10/06/2018 ?? Kaylene Pinedo [address] [facility] [address] The patient was seen in consultation at the request of Kaylene Pinedo for evaluation of asthma HISTORY OF PRESENTATION The patient is a 63 year old woman with a longstanding history of severe asthma. She describes having had frequent severe exacerbations over the years. She was hospitalized once, after she got a dog.Her other visits have primarily been to the emergency room. She has been on a variety of different inhalers over the years as well. She has been followed at [facility]. She had a prolonged exacerbation at the beginning of this year, requiring prednisone over several months. This was likely at least viral induced. She was not using controller medications at that time. She subsequentlystarted scheduled Spiriva and Symbicort. It sounds as though she improved, but had adverse reactions to both. She does not recall what the reaction was the Spiriva, but states that the reaction to the Symbicort included severe visual changes. She is currently only using Xopenex as needed, as well as montelukast. She does feel that the montelukast has been very effective. She has very extensive environmental allergies. She previously received immunotherapy, but had severe allergic reactions the last 2 times. She describes needing Benadryl and several epinephrine injections. Subsequently, her immunotherapy was discontinued. Triggers for her asthma include infections, exercise, reflux, cigarette smoke, food allergies, dustmites, cockroaches, high humidity, animal dander, strong odors, trees grasses and pollens, mold, Spiriva, nebulized albuterol, and emotional stress. She currently has symptoms throughout the day, andis using Xopenex for these with improvement. She does have a spacer. Does feel that her asthma interferes with her normal activity. She denies significant nocturnal symptoms. She has a history of chronic sinus disease, and had a remote sinus surgery. She has tried sinus rinses but was unable to tolerate them. She does have reflux, which is currently controlled on a PPI. She reports sore throat and headaches, and significant cough due to her asthma. She occasionally brings up a small amount of sputum. She has not had any hemoptysis. She often feels generally fatigued, but has not had any night sweats or weight loss. She has had some enlarged lymph nodes in her neck, which have now resolved. Primary reason for referral is that her instrumentation engineering technician recommended for syndrome for her poorly controlled asthma. She is quite frightened about this option given the potential risk of anaphylaxis, andher history of anaphylactic episodes of a variety of different exposures and medications. She states that this point she is really unwilling to consider this as an option. She is also does not like to take prednisone if it all avoidable, given how poorly she feels on it. She states that if anythingshe feels better recently, in spite of discontinuing the Spiriva and the Symbicort. A 14 point review of systems was obtained . In addition to as noted above, is positive for depression, memory loss, hair loss, joint pain, and constipation. The remainder is negative or as noted above. Past Medical History: Diagnosis Date ??? Chronic fatigue ??? Chronic kidney disease ??? Depression ??? Fibromyalgia ??? GERD (gastroesophageal reflux disease) ??? Interstitial cystitis ??? Irritable bowel syndrome ??? OCD (obsessive compulsive disorder) ??? Osteopenia Past Surgical History: Procedure Laterality Date ??? APPENDECTOMY ??? CHOLECYSTECTOMY ??? HERNIA REPAIR ??? HYSTERECTOMY ??? SINUS SURGERY ??? TONSILLECTOMY AND ADENOIDECTOMY Family History Problem Relation Age of Onset ??? High Blood Pressure Mother ??? Heart Disease Mother ??? Cancer Father ??? High Blood Pressure Father ??? Stroke Father She also has a family history of Marfan syndrome. Medications: has a current medication list which includes the following prescription(s): epinephrine, estradiol, fexofenadine, lansoprazole, levalbuterol, montelukast, and trazodone. Allergies Allergen Reactions ??? Chocolate Flavor ??? [place] ??? Dairy [Cheese] ??? Erythromycin Nausea Only ??? Fish Containing Products ??? Nahed ??? Gluten ??? Hydrocodone Slowed breathing, heartbeat, nervousness, confusion, lightheadedness, restlessness, headache, general feeling of discomfort/illness ??? Legumes Peas/whitman beans/black beans ??? Melon ??? Nuts [Tree Nut] Peanuts and products/all nuts and oils ??? Other - See Comments All muscle relaxers, heart rate and breathing declines Most inhalers, causes tremors and light headedness Most anti depressants-general feeling of discomfort/illness Contrast All pitted fruits/all dried foods ??? Peanut ??? Penicillins Unknown reaction, was when she was young ??? Percocet [Oxycodone-Acetaminophen] Slowed breathing, heartbeat, nervousness, confusion, lightheadedness, restlessness, headache, general feeling of discomfort/illness ??? Pork/Porcine Containing Products ??? Rice ??? Samir ??? Shellfish Containing Products ??? Soy ??? Spiriva Respimat [Tiotropium [place]] ??? Steroid [Corticosteroids (Glucocorticoids)] roid rage ??? Vicodin [Hydrocodone-Acetaminophen] Slowed breathing, heartbeat, nervousness, confusion, lightheadedness, restlessness, headache, general feeling of discomfort/illness Objective:?? PHYSICAL EXAMINATION: A well-nourished female in no respiratory distress. Vital signs: BP 134/72 Pulse 72 Temp 36.3 ??C (97.4 ??F) (Tympanic) Resp 16 Ht 170.1 cm (66.97) Wt 66.7 kg (147 lb) SpO2 100% BMI 23.04 kg/m?? HEENT exam: Normocephalic, atraumatic. Pupils are equally round and reactive to light. Neck is supple without adenopathy or thyromegaly. Nares with erythema and cobblestoning Lungs exam: Clear bilaterally with slightly diminished air movement. No crackles or wheeze Cardiovascular exam: Regular rate and rhythm without murmurs, rubs, or gallops. Chest: Symmetric movement, no accessory muscle use. Abdomen exam: Soft, nontender. Extremities exam: No clubbing, cyanosis, or edema. Neuro: Alert and oriented x 4 , normal mood and affect, moves all extremities well. Skin: No obvious rashes or lesions Data:?? Pulmonary function studies: Pulmonary function studies, ordered and reviewed by me, show: FVC of 2.96 liters, 94% of predicted FEV1 of 1.72 liters, 69 % of predicted FEV1/FVC ratio 58 Bronchodilator assessment was not performed due to patient report of significant side effects from albuterol Imaging: PA and lateral views of the chest from April 2018 show clear lungs Previous testing shows: IgE 454, eosinophils absolute 150. (10/2017) Spirometry from 08/21/2017: Forced vital capacity 3.16 L, 87% predicted FEV1 1.51 L, 57% predicted Ratio 51 After administration of bronchodilator FEV1 increased to 1.96 L, 70% predicted. This is a 22% improvement in FEV1. Residual volume showed hyperinflated lungs 3.17 L, or 161% predicted. Impression and Plan:??In summary, this is a 63-year-old woman with severe persistent asthma. It seems to be primarily allergic in nature, she has a history of extensive documented allergies. Unfortunately she also has had significant allergies and adverse reactions to a variety of medications making the treatment of her asthma more complicated. She had with her that my experience with the Biologics for asthma has been quite positive, with good clinical results, and no significant adverse reactions, though they certainly have been reported. At this point, she is not interested in pursuing any of these medications. We discussed a variety of options, including alternate inhaled medications. I do think she would really benefit from being on a controller medication if at all possible. Options could include nebulized steroid and LABA, or Brep Ellipta. We discussed that there are some other options for asthma, such as methotrexate, which she is not interested in. We also discussed the [place]aver[place] importance of avoiding any triggers if at all possible. I think she would benefit from nasal rinses and a nasal steroid if she can tolerate them. She is appreciative of these recommendations and will plan to discuss them with Dr. Christianson in the near future. Nikky Kaplan MD ? cc: ?Kaylene Pinedo Please note: this documentation was created using voice recognition software, and may contain rare development spec errors. documented in this encounter Plan of Treatment Not on file documented as of this encounter Procedures Procedure Name Priority Date/Time Associated Diagnosis Comments PULMONARY FUNCTION REPORT - SCANNED 10/06/2018 18:54 EDT documented in this encounter Results * PULMONARY FUNCTION REPORT - SCANNED (10/06/2018 18:54 EDT) 10/06/2018 18:5 4 EDT Scan 2 Clinical Services Professional PROCEDURE/MINOR JC GICAL ORDERABLES documented in this encounter Visit Diagnoses Diagnosis Severe persistent asthma without complication- Primary Allergic rhinitis due to pollen, unspecified seasonality documented in this encounter Discontinued Medications Medication Sig Discontinue Reason Start Date End Da te fluticasone (FLOVENT) 110 mcg/actuation inhaler Inhale 110 mcg as directed 2 times daily. 10/06/2018 KRILL OIL ORAL Take by mouth. 10/06/2018 LEVALBUTEROL HCL INHALATION Inhale as directed as needed. 10/06/2018 tiotropium (SPIRIVA) 18 mcg inhalation capsule Inhale 18 mcg as directed daily. 10/06/2018 UNABLE TO FIND Med Name: Tumeric curcumin 10/06/2018 VITAMIN B COMPLEX ORAL Take by mouth. 9 VITAMIN D3-VITAMIN K2, MK4, ORAL Take by mouth. 10/06/2018 Multivitamins with Minerals tablet tablet Take 1 Tab by mouth daily. 10/06/2018 omega 8-awm-cyx-fish oil 120-180-600 mg capsule Take by mouth. 10/06/2018 pantoprazole (PROTONIX) 40 mg tablet Take 40 mg by mouth daily. 10/06/2018 famotidine (PEPCID) 20 mg tablet Take 20 mg by mouth as needed. 10/06/2018 acetaminophen (TYLENOL) 650 mg CR tablet Take 1,300 mg by mouth as needed for Pain. 10/06/2018 B INFANTIS/B ANI/B NGOC/B BIFID (PROBIOTIC 4X ORAL) Take by mouth daily. 10/06/2018 documented as of this encounter Historical Medications * This list may reflect changes made after this encounter. Medication Sig Dispensed Refills Start Date End Date lansoprazole (PREVACID) 30 mg capsule Take 30 mg by mouth daily. added in this encounter Care Teams Material Hauler Relationship Specialty Start Date End Date Kaylene Pinedo MD [address] [place] [address] PCP - General 08/07/16 documented as of this encounter
--- OUTSIDE RECORDS SUMMARY | 2023-09-08 13:46 | XMS_ITS | Encounter Summary ---
Author Organization [facility] Address [address] [place] [address] Care Team Providers Care Automobile Body Repairer Name Role Phone Kaylene Pinedo MD Primary Care Provider [phone] Encounter Details Date Type Department Care Team (Late st Contact Info) Description 09/02/2019 Lab Requisition [facility] Pathology & Laboratory Medicine - [address] [address] Outr Resulting Lab, Provider Social History Tobacco Use Types Packs/Day Years [...] Procedure Name Priority Date/Time Associated Diagnosis Comments INSULIN Routine 09/01/2019 8:10 EDT documented in this encounter Results * INSULIN (09/01/2019 8:10 EDT) Insulin 7.1 <29.0 uIU/mL 09/09/2019 9:08 EDT [facility] Comment: Displayed Reference Range applies to fasting specimens only. Blood VENOUS BLOOD / Unknown 09/01/2019 8:10 EDT 09/02/2019 17:13 EDT Provider Outr Resulting Lab CHEMISTRY & BLOOD GAS ORDERABLES [facility] [address] [place] [address] documented in this encounter Visit Diagnoses Not on filedocumented in this encounter Care Teams Automobile Body Repairer Relationship Specialty Start Date End Date Kaylene Pinedo MD [address] [place] [address] PCP - General 08/07/16 documented as of this encounter
--- OUTSIDE RECORDS SUMMARY | 2023-09-08 13:46 | XMS_ITS | Encounter Summary ---
Author Organization [facility] Address [address] [place] [address] Care Team Providers Care Mill Work Name Role Phone Kaylene Pinedo MD Primary Care Provider [phone] Reason for Visit * (Routine) - Receiving Office to Obtain Authorization Specialty Diagnoses / Procedures Referred By Contkaleb t Referred To Contact Procedures CT OUTSIDE IMAGES NEURO Unknown, Provider, Referral ID Status Reason Start Date Expiration Date Visits Requested Visits Authorized [id number] Receiving Office to Obtain Authorization 08/11/2019 1 1 Encounter Details Date Type Department Care Team (Latest Contact Info) Description 07/20/2019 - 07/20/2019 23:59 EDT Hospital Encounter [facility] Radiology - Main [place] [address] [place] [address] Discharge Disposition: Home or Self Care Social [...] Procedure Name Priority Date/Time Associated Diagnosis Comments CT OUTSIDE IMAGES NEURO Routine 08/11/2019 15:58 EDT documented in this encounter Results * CT OUTSIDE IMAGES NEURO (08/11/2019 15:58 EDT) Narrative ELISHA - 08/11/2019 15:58 EDT This is a non-reportable exam. Provider Unknown MD CARRASQUILLO OTHER IMAGING OR DERABLES ELISHA documented in this encounter Visit Diagnoses Not on filedocumented in this encounter Care Teams Mill Work Relationship Specialty Start Date End Date Kaylene Pinedo MD [address] [place] [address] PCP - General 08/07/16 documented as of this encounter
--- OUTSIDE RECORDS SUMMARY | 2023-09-08 13:46 | XMS_ITS | Encounter Summary ---
Author Organization [facility] Address [address] [place] [address] Care Team Providers Care Healthcare Financial Analyst Name Role Phone Kaylene Pinedo MD Primary Care Provider [phone] Reason for Visit * Reason Onset Date Comments New/Evolving Symptoms 08/18/2019 Encounter Details Date Type Department Care Team (Late st Contact Info) Description 08/18/2019 Telephone [facility] Pulmonology & Critical Care - [address] [address] Nikky Kaplan MD [address] [place] [address], [address] [place] [address] New/Evolving Symptoms Social History Tobacco Use Types Packs/Day Years [...] Dispensed Refills Start Date End Da te predniSONE (DELTASONE) 10 mg tabletIndications:Severe persistent asthma with (acute) exacerbation Take 40 mg po daily x 2 days, 30 mg daily x 2 days, 20 mg x 2 days, 10 mg x 2 days, 5 mg x 2 days. 21 Tab 08/18/2019 documented in this encounter Miscellaneous Notes * Telephone Encounter - Jessica Elliott RT - 08/18/2019 1344 EDT Carolina did take the prednisone taper prescribed on 07/28/19 and felt it did help her sob. Have dp-I-jvjwids Prednisone taper to [facility] for Ms. Wolf on 08/18/2019. Reviewed instructions, encouraged her to sty in air conditioning as much as possible, stay hydrated, go to the ED if she worsens and call the clinic on Friday to followup. She agreed to all of this. RT RASHEED * Telephone Encounter - Nikky Kaplan MD - 08/18/2019 1325 EDT I will focus here on her pulmonary problem, since that is what I am seeing her for. . I would recommend that she reach out to PCP or neurologist about headache if it does not resolve within a few days of stopping the QVAR. Since she did not tolerate QVAR, and really hasn't tolerated any asthma inhalers, would favor just leaving her off for now. If she is willing to take prednisone, I would recommend a taper. Did she take the prednisone I gaveher on 07/27? If not, she could take that now, or if she did ok to refill. Really very limited options given medication sensitivity. Nikky Kaplan MD * Telephone Encounter - Jessica Elliott RT - 08/18/2019 1142 EDT 3 weeks ago, Carolina was started on Qvar. She d/c'd it 2 days ago, because she was experiencing blurry vision and a headache while on it. History: About a month ago, Carolina was sent to [facility], because she was experiencing a dizziness (more like off kilter,like being pushed to one side). They ruled out a stroke. Incidental finding wasa hemangiomia on her C4. Carolina noticed a headache start a couple of days before this. She still has it. The pain switches between being in the background to all out pain.The pain is across her hairline. Some episodes of dizziness continue. She has been referred to a Neurologist and the [facility] for this. With the humidity she is really struggling to breathe. She is in air conditioning and this helps a bit, but this is only if she is sitting, doing nothing. She is using her nebulized albuterol TID and her MDI in between.Her throat feels tight, she is congested both nasally (thick bloody mucus) and in her lungs (thick clear white to light yellow). She is taking dinah and singulair for her allergies.Negative for change in taste and a change in her body aches. Please advise for signs of an exacerbation. She is complaining of having a hard time falling asleep recently and then when she does she wakes up in abut 3 hours. This is fairly new for her, as she is on Trazadone, which has helped her insomniaa lot. Suggested this may be a lack of exercise. If something is called in for her, please send to [facility] in [facility]. Carolina wanted to remind Dr Kaplan, she is hypersensitive to medications. RT RASHEED' * Telephone Encounter - Seema Garay - 08/18/2019 1112 EDT Patient reporting that QVAR inhaler causing blurry vision & headaches, stopped using; patient having breathing issues even with other inhalers documented in this encounter Plan of Treatment Not on file documented as of this encounter Visit Diagnoses Diagnosis Severe persistent asthma without complication- Primary Severe persistent asthma with (acute) exacerbation documented in this encounter Discontinued Medications Medication Sig Discontinue Reason Start Date End Da te beclomethasone (QVAR) 40 mcg/actuation inhaler Inhale 1 Puff as directed 2 times daily. 07/28/2019 08/18/2019 fluticasone propionate (FLOVENT HFA) 44 mcg/actuation inhaler Inhale 1 Puff as directed 2 times daily. 04/28/2019 08/18/2019 documented as of this encounter Care Teams Healthcare Financial Analyst Relationship Specialty Start Date End Date Kaylene Pinedo MD [address] [place] [address] PCP - General 08/07/16 documented as of this encounter
--- OUTSIDE RECORDS SUMMARY | 2023-09-08 13:46 | XMS_ITS | Encounter Summary ---
Author Organization [facility] Address [address] [place] [address] Care Team Providers Care Jack Spooler Tender Name Role Phone Kaylene Pinedo MD Primary Care Provider [phone] Reason for Visit * Reason Comments Telemedicine Video Visit Asthma Encounter Details Date Type Department Care Team (Late st Contact Info) Description 07/28/2019 10:45 EDT Telemedicine [facility] Pulmonology & Critical Care - [address] [id number] Nkiky Kaplan MD [address] [facility], [address] [place] [address] Severe persistent asthma without complication [...] End Da te predniSONE (DELTASONE) 10 mg tablet Take 4 Tabs by mouth daily for 2 days, THEN 3 Tabs daily for 2 days, THEN 2 Tabs daily for 2 days, THEN 1 Tab daily for 2 days, THEN 0.5 Tabs daily for 2 days. 21 Tab 07/28/2019 08/07/2019 beclomethasone (QVAR) 40 mcg/actuation inhaler Inhale 1 Puff as directed 2 times daily. 1 Inhaler 11 07/28/2019 08/18/2019 documented in this encounter Progress Notes * Michelle Farley MA - 07/28/2019 1045 EDT Pulmonary Review of Symptoms Constitutional: Chills Hematology: Easy Bruising Eyes: Blurred Vision Ear, Nose and Throat: Headaches Allergies: Seasonal Skin: Itching Neurological: Dizziness Genitourinary: NONE Endocrine / Heme / Allergies: NONE Psychiatric: NONE Gastrointestinal: NONE Cardiovascular: NONE Musculoskeletal: Muscle Aches, Back Pain and Joint Pain Respiratory: Cough, Sputum Production and Shortness of Breath Other Comments / Notes: * Nikky Kaplan MD - 07/28/2019 1045 EDT DIVISION OF PULMONOLOGY? PROGRESS/FOLLOWUP NOTE -07/28/2019 ?? Kaylene Pinedo [address] [facility] [address] The concept of ???Telemedicine?? has been described to the patient. Patient has been informed of the anticipated benefits and possible risks. Patient understands the information provided regarding telemedicine, has had the opportunity to ask questions about this information, and all questions havebeen answered to patient???s satisfaction. Patient consents for the use of telemedicine in his/her medical care and authorizes the transmission of any relevant medical information to providers and their staff involved in patient???s medical or mental health care. TELEMEDICINE VIDEO VISIT Today's visit was provided through telemedicine video conferencing: I have reviewed the appropriateness of using video technology with the patient with regards to today's visit. The location of the patient : Home The location of the provider: Clinic Exam Room The following staff and their role did participate in today's encounter visit: Nikky Kaplan MD Pulmonary History Severe persistent asthma - extensive triggers - IgE 454 - absolute Eos 150 - chronic sinus disease with remote surgery, unable to tolerate rinses - reflux, controlled on PPI - adverse reactions to Spiriva, Symbicort, Flovent - tolerates Xopenex INTERVAL HISTORY: At the last visit we start low dose flovent as a controller. Unfortunately, she was unable to tolerate this. Sx: eyes ache, blurry vision, headache Tried it last week two different days and that happened both times Before that had been doing ok in terms of asthma, so didn't feel like she needed it. Using albuterol neb at bedtime, which keeps her ok for the night Wakes up with chest congestion and heaviness, difficulty breathing and talking Uses nebulizer then, feels worse briefly, with increased cough, then does better Some days then does ok for the rest of the day until the evening treatment Increased symptoms past several days Needing nebs 3-4 times a day Sometimes augments with rescue inhaler occ small amount clear sputum No hemoptysis Sinuses are congested often, a lot of nose blowing Prednisone helps but had side effects to that has well. Has been on it fdc in the past as well, for as long as 3 months and had a lot of stomach upset. Does ok with shorter bursts, but still can't sleep more than 3 hours with it even with trazodone while taking it. Admitted to [facility] [place] [place] several weeks ago for concern of stroke; felt like someone was puhsing her side ways. FREITAS, eye pain. Had MRI that woas normal. 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 Please see separate documentation of a complete review of systems in this encounter. The past medical, social and family history were reviewed and updated in the chart. Medications: has a current medication list which includes the following prescription(s): calcium, cyanocobalamin (vitamin b-12), epinephrine, ergocalciferol (vitamin d2), estradiol, fexofenadine, fluticasone propionate, lansoprazole, levalbuterol, levalbuterol, montelukast, multivitamin, NONFORMULAR Y, trazodone, and turmeric. Objective:?? PHYSICAL EXAMINATION: A well-nourished female in no respiratory distress. Vital signs: There were no vitals taken for this visit. HEENT exam: Normocephalic, atraumatic, anicteric sclerae. Lungs exam: normal respiratory effort,+++ wheeze on forced exhalation, throat clearing cough Cardiovascular exam: acyanotic Abdomen exam: Thin Extremities exam: No clubbing Neuro: Alert and oriented x 4 , normal mood and affect, moves all extremities well. Impression and Plan:??In summary, this is a 64-year-old woman with severe persistent asthma complicated by multiple drug allergies and intolerances. We are continuing to have difficulty finding a controller medication that she can tolerate. At this point I would like to try a low-dose Qvar. She is agreeable with this plan. In the interim I will give her a short prednisone taper for her current exacerbation. We will plan to see her back in a few months time, with spirometry at that visit. She will let me know before then if she is not doing well. Nikky Kaplan MD Pulmonary Attending ? cc: ?Kaylene Pinedo Please note: this documentation was created with the use of voice recognition software, and may contain rare coordinator volunteer services errors. documented in this encounter Plan of Treatment Not on file documented as of this encounter Visit Diagnoses Diagnosis Severe persistent asthma without complication- Primary Allergic rhinitis due to pollen, unspecified seasonality documented in this encounter Historical Medications * This list may reflect changes made after this encounter. Medication Sig Dispensed Refills Start Date End Date acetaminophen (TYLENOL) 500 mg tablet Take 500 mg by mouth every 6 hours as needed for Pain. added in this encounter Care Teams Jack Spooler Tender Relationship Specialty Start Date End Date Kaylene Pinedo MD [address] [place] [id number] PCP - General 08/07/16 documented as of this encounter
--- OUTSIDE RECORDS SUMMARY | 2023-09-08 13:46 | XMS_ITS | Encounter Summary ---
Author Organization [facility] Address [address] [place] [address] Care Team Providers Care Small Engine Mechanic Name Role Phone Kaylene Pinedo MD Primary Care Provider [phone] Encounter Details Date Type Department Care Team (Late st Contact Info) Description 08/05/2020 Lab Requisition [facility] Pathology & Laboratory Medicine - [address] [address] Mick Moss MD [address] [place] [phone] Functional dyspepsia; Gastro-esophageal reflux disease without esophagitis; Other chest pain Social History Tobacco Use Types Packs/Day Years Used Date Smoking Tobacco: Never Assessed Interpersonal Safety Answer Date Record ed Physically [...] Procedure Name Priority Date/Time Associated Diagnosis Comments SURGICAL PATHOLOGY Today 08/04/2020 10 :00 EDT Functional dyspepsia Gastro-esophageal reflux disease without esophagitis Other chest pain documented in this encounter Results * SURGICAL PATHOLOGY (08/04/2020 10:00 EDT) Final Diagnosis A. DUODENUM, BIOPSY: - Duodenal mucosa with no specific pathologic features. B. DUODENUM, BULB, BIOPSY: - Duodenal bulb mucosa with no specific pathologic features. C. STOMACH, ANTRUM, BIOPSY: - Gastric antral mucosa with reactive (chemical) gastropathy. D. STOMACH, BODY, BIOPSY: - Gastric body mucosa with no specific pathologic features. E. STOMACH, POLYP, BIOPSY: - Benign fundic gland polyp. F. ESOPHAGUS, DISTAL, BIOPSY: - Non-diagnostic. - See comment. G. ESOPHAGUS, MID, BIOPSY: - Squamous mucosa with no specific pathologic features. 08/08/2020 16:18 [facility] Diagnosis Comment The specimen submitted as distal esophagus (specimen F) did not survive processing. 08/08/2020 16:18 [facility] Attestation By the signature below, the attending physician certifies that they have 1) personally conducted a gross and/or microscopic examination of the described specimen(s), and/or personally interpreted the results of laboratory testing of the described specimen(s), and 2) personally rendered or confirmed the above diagnosis. 08/08/2020 16:18 [facility] at 1618 Clinical History Functional dyspepsia; GERD; irritable bowel syndrome; belching, chest discomfort; clinical diagnosis code: K30, K21.9, R07.87 08/08/2020 16:18 [facility] Gross Description A. Received in formalin labelled with proper patient identification (initials T, P) and duodenum are 3 king-white tissues (0.1 x 0.1 x 0.1 cm of 2 0.2 x 0.1 x 0.1 cm). Submitted entirely in A1. B. Received in formalin labelled with proper patient identification (initials T, P) and duodenal bulb is a single king-brown tissue (0.3 x 0.2 x 0.1 cm). Submitted entirely in B1. C. Received in formalin labelled with proper patient identification (initials T, P) and antrum are 2 king-brown tissues (0.3 x 0.1 x 0.1 cm on average). Submitted entirely in C1. D. Received in formalin labelled with proper patient identification (initials T, P) and gastric body is a single king-pink tissue (0.3 x 0.2 x 0.1 cm). Submitted intact in D1. E. Received in formalin labelled with proper patient identification (initials T, P) and gastric polyp is a single king-brown polypoid tissue (0.4 x 0.3 x 0.1 cm). Submitted intact in E1. F. Received in formalin labelled with proper patient identification (initials T, P) and distal esophagus 2 king-white tissues (0.4 x 0.1 x 0.1 cm on average). Submitted entirely in F1. G. Received in formalin labelled with proper patient identification (initials T, P) and mid esophagus are 2 white tissues (0.4 x 0.2 x 0.1 cm on average). Submitted entirely in G1. KACI AGUILAR(ASCP) 08/05/2020 15:25 08/08/2020 16:18 EDT [facility] Performing Lab [facility] 08/08/2020 16:18 T [facility] Scanned Images 08/08/2020 16:18 T [facility] Tissue ENTIRE ESOPHAGUS / Unknown 08/04/2020 10:00 EDT 08/05/2020 8:43 EDT Tissue specimen (specimen) STRUCTURE OF SMALL INTESTINE / Unknown 08/04/2020 10:00 EDT 08/05/2020 8:43 EDT Tissue specimen (specimen) STOMACH STRUCTURE / Unknown 08/04/2020 10:00 EDT 08/05/2020 8:43 EDT Tissue specimen (specimen) STOMACH STRUCTURE / Unknown 08/04/2020 10:00 EDT 08/05/2020 8:43 EDT Tissue specimen (specimen) SPECIMEN FROM STOMACH OBTAINED BY TOTAL GASTRECTOMY / Unknown 08/04/2020 10:00 EDT 08/05/2020 8:43 EDT Tissue specimen (specimen) ESOPHAGEAL STRUCTURE / Unknown 08/04/2020 10:00 EDT 08/05/2020 8:43 EDT Tissue specimen (specimen) ESOPHAGEAL STRUCTURE / Unknown 08/04/2020 10:00 EDT 08/05/2020 8:43 EDT Mick Moss MD PATHOLOGY ORD ERABLES [facility] [address] [place] [address] documented in this encounter Visit Diagnoses Diagnosis Functional dyspepsia Dyspepsia and other specified disorders of function of stomach Gastro-esophageal reflux disease without esophagitis Esophageal reflux Other chest pain documented in this encounter Care Teams Small Engine Mechanic Relationship Specialty Start Date End Date Kaylene Pinedo MD [address] [place] [id number] PCP - General 08/07/16 documented as of this encounter
--- OUTSIDE RECORDS SUMMARY | 2023-09-08 13:46 | XMS_ITS | Encounter Summary ---
Author Organization [facility] Address [address] [place] [address] Care Team Providers Care Transportation Engineering Technician Name Role Phone Kaylene Pinedo MD Primary Care Provider [phone] Reason for Visit * Reason Onset Date Comments Patient Outreach 10/18/2019 Returning Call 10/19/2019 Encounter Details Date Type Department Care Team (Late st Contact Info) Description 10/18/2019 Telephone [facility] Pulmonology & Critical Care - [address] [id number] Nikky Kaplan MD [address] [place] [address], [address] [place] [address] Patient Outreach; Returning Call Social History Tobacco Use Types Packs/Day Years [...] encounter Miscellaneous Notes * Telephone Encounter - Emili Garcia - 10/19/2019 1325 EDT Patient called back. She wants covid order canceled, and all appointments on 10/27/19 canceled due topandemic. * Telephone Encounter - Ousmane Osborne RN - 10/19/2019 1041 EDT Patient had FUR and PFT scheduled for 10/27/19. Case Maker returned patient's call to discuss her questions. No answer. LMOM encouraging patient to call back to discuss. * Telephone Encounter - Lizbeth Tierney - 10/18/2019 1220 EDT Reason for Call: Patient Outreach Summary/Symptoms: Patient is unsure if this is a good time to have a PFT wants to discuss further and has not scheduled the covid test yet Please call back to discuss Lizbeth Tierney 10/18/2019 12:20 documented in this encounter Plan of Treatment Not on file documented as of this encounter Visit Diagnoses Not on filedocumented in this encounter Care Teams Transportation Engineering Technician Relationship Specialty Start Date End Date Kaylene Pinedo MD [address] [place] [id number] PCP - General 08/07/16 documented as of this encounter
--- OUTSIDE RECORDS SUMMARY | 2023-09-08 13:46 | XMS_ITS | Encounter Summary ---
Author Organization [facility] Address [address] [place] [address] Care Team Providers Care Wellness Guide Name Role Phone Kaylene Pinedo MD Primary Care Provider [phone] Encounter Details Date Type Department Care Team (Late st Contact Info) Description 08/24/2021 Lab Requisition [facility] - Main [address] [id number] Mick Moss MD [address] [place] [phone] Functional dyspepsia; Gastro-esophageal reflux disease without esophagitis; Other chest pain; Eructation Social History Tobacco Use Types Packs/Day Years [...] Date/Time Associated Diagnosis Comments SURGICAL PATHOLOGY Today 08/23/2021 8:14 EDT documented in this encounter Results * SURGICAL PATHOLOGY (08/23/2021 8:14 EDT) Note to Patient The following pathology results have been interpreted by your pathologist and may be available to you before your health provider has had the opportunity to review them. Please allow time for your provider to receive these results and explore management options, if applicable. 08/27/2021 15:50 [facility] Final Diagnosis A. DUODENUM, BIOPSY: - Duodenal mucosa with no significant histopathologic abnormalities. B. DUODENAL BULB, BIOPSY: - Duodenal mucosa with no significant histopathologic abnormalities. C. DUODENAL BULB, POLYP: - Gastric heterotopia. - No evidence of neoplasm. See comment. D. GASTRIC ANTRUM, BIOPSY: - Antral type mucosa with mild chronic gastritis. - No Helicobacter-like microorganisms identified on routine stained sections. E. GASTRIC BODY, BIOPSY: - Body type mucosa with patchy, mild chronic gastritis. - No Helicobacter like microorganisms identified on routine stained sections. F. DISTAL ESOPHAGUS, BIOPSY: - Fragments of unremarkable squamous mucosa. G. MID ESOPHAGUS, BIOPSY: - Fragments of unremarkable squamous mucosa. H. COLON, ASCENDING, POLYP: - Tubular adenoma. I. COLON, DISTAL TRANSVERSE, POLYP: - Tubular adenoma. J. COLON, RECTOSIGMOID, POLYP: - Tubular adenoma. 08/27/2021 15:50 [facility] Diagnosis Comment C. Deeper levels were examined. 08/27/2021 15:50 [facility] Attestation By the signature below, the attending physician certifies that they have 1) personally conducted a gross and/or microscopic examination of the described specimen(s), and/or personally interpreted the results of laboratory testing of the described specimen(s), and 2) personally rendered or confirmed the above diagnosis. 08/27/2021 15:50 [facility] at 1550 Clinical History GERD 08/27/2021 15:50 [facility] Gross Description A. Received in formalin labeled ? Ruthann J. Tidyman? and ? duodenum? is a single mucosal tissue fragments measuring 0.3 x 0.2 x 0.2 cm. Entirely submitted in 1 cassette. B. Received in formalin labeled ? Ruthann J. Tidyman? and ? duodenal bulb? are 2 mucosal tissue fragments each measuring 0.2 x 0.1 x 0.1 cm. Entirely submitted in 1 cassette. C. Received in formalin labeled ? Ruthann J. Tidyman? and ? duodenal bulb polyp? are 2 mucosal tissue fragments each measuring 0.2 x 0.1 x 0.1 cm. Entirely submitted in 1 cassette. D. Received in formalin labeled ? Ruthann J. Tidyman? and ? antrum? is a single mucosal tissue fragment measuring 0.4 x 0.2 x 0.1 cm. Entirely submitted in 1 cassette. E. Received in formalin labeled ? Ruthann J. Tidyman? and ? gastric body? are 4 mucosal tissue fragments ranging in size from 0.1 x 0.1 x 0.1 cm up to 0.3 x 0.2 x 0.1 cm. Entirely submitted 1 cassette. F. Received in formalin labeled ? Ruthann J. Tidyman? and ? distal esophagus? are 2 mucosal tissue fragments measuring 0.2 x 0.1 x 0.1 cm and 0.2 x 0.2 x 0.1 cm. Entirely submitted in 1 cassette. G. Received in formalin labeled ? Ruthann J. Tidyman? and ? mid esophagus? are 2 mucosal tissue fragments each measuring 0.2 x 0.2 x 0.1 cm. Entirely submitted in 1 cassette. H. Received in formalin labeled ? Ruthann J. Tidyman? and ? ascending colon polyp? is a single mucosal tissue fragment measuring 0.3 x 0.2 x 0.1 cm. Entirely submitted in 1 cassette I. Received in formalin labeled ? Ruthann J. Tidyman? and ? distal transverse colon polyp? is a single mucosal tissue fragment measuring 0.3 x 0.2 x 0.1 cm. Entirely submitted in 1 cassette. J. Received in formalin labeled ? Ruthann J. Tidyman? and ? recto sigmoid polyp? is a single polypoid tissue fragment measuring 0.5 x 0.4 x 0.3 cm. Submitted intact in 1 cassette. YURY MCLAUGHLIN 08/24/2021 13:07 08/27/2021 15:50 EDT [facility] Performing Lab [facility] 12/2021 15:50 EDT [facility] Scanned Images 08/27/2021 15:50 EDT [facility] Tissue ENTIRE COLON / Unknown 08/23/2021 8:14 EDT 08/24/2021 11:05 EDT Tissue specimen (specimen) DUODENAL AMPULLA STRUCTURE / Unknown 08/23/2021 8:14 EDT 08/24/2021 11:05 EDT Tissue specimen (specimen) DUODENAL AMPULLA STRUCTURE / Unknown 08/23/2021 8:14 EDT 08/24/2021 11:05 EDT Tissue specimen (specimen) PYLORIC ANTRUM STRUCTURE / Unknown 08/23/2021 8:14 EDT 08/24/2021 11:05 EDT Tissue specimen (specimen) GASTRIC CORPUS STRUCTURE / Unknown 08/23/2021 8:14 EDT 08/24/2021 11:05 EDT Tissue specimen (specimen) ESOPHAGEAL STRUCTURE / Unknown 08/23/2021 8:14 EDT 08/24/2021 11:05 EDT Tissue specimen (specimen) ESOPHAGEAL STRUCTURE / Unknown 08/23/2021 8:14 EDT 08/24/2021 11:05 EDT Tissue specimen (specimen) ASCENDING COLON STRUCTURE / Unknown 08/23/2021 8:14 EDT 08/24/2021 11:05 EDT Tissue specimen (specimen) TRANSVERSE COLON STRUCTURE / Unknown 08/23/2021 8:14 EDT 08/24/2021 11:05 EDT Tissue specimen (specimen) COLON STRUCTURE / Unknown 08/23/2021 8:14 EDT 08/24/2021 11:05 EDT Mick Moss MD PATHOLOGY ORD ERABLES [facility] [address] [place] [address] documented in this encounter Visit Diagnoses Diagnosis Functional dyspepsia Dyspepsia and other specified disorders of function of stomach Gastro-esophageal reflux disease without esophagitis Esophageal reflux Other chest pain Eructation Flatulence, eructation, and gas pain documented in this encounter Care Teams Wellness Guide Relationship Specialty Start Date End Date Kaylene Pinedo MD [address] [place] [address] PCP - General 08/07/16 documented as of this encounter
--- OUTSIDE RECORDS SUMMARY | 2023-09-08 13:47 | XMS_ITS | Encounter Summary ---
Author Organization [facility] Address [address] [place] [address] Care Team Providers Care Casino Cashier Manager Name Role Phone Marianna Garcia MD Primary Care Provider [phone] Encounter Details Date Type Department Care Team (Late st Contact Info) Description 03/22/2003 Results Only [facility] - Maple conversion [address] [place] [address] Lydia Aguilar, [facility] [address] [place], [place] [address] Social History Tobacco Use Types Packs/Day Years Used Date Smoking Tobacco: Never Assessed Sex and Gender Information Value Date Recorded Sex Assigned at Not on file Gender Identity Not on file Sexual Orientation Not on file documented as of this encounter Plan of Treatment Not on file documented as of this encounter Procedures Procedure Name Priority Date/Time Associated Diagnosis Comments CYTOPATHOLOGY Routine 03/22/2003 0:00 EST documented in this encounter Results * CYTOPATHOLOGY (03/22/2003 0:00 EST) Pathology Report: CYTOPATHOLOGY REPORT Reports generated via electronic interface contain original data; however they are lacking the format of the original report. Caution should be taken when reading/interpreti ng unformatted reports. Name: ? RUTHANN WOLF ? Accession #: ? [id number] : ? 1955 (Age: 48) ??F ?Collect Date: ? 03/22/2003 Location: ? [facility] ? Receive Date: ? 03/24/2003 Provider: ?LYDIA AGUILAR DECAL TRANSFERRER Copy to: ? Specimen/Source: ?ThinPrep Pap Test, Cervix/Endocervix Last Menstrual Period: ? 1 week ago ? SPECIMEN ADEQUACY ? Satisfactory for Evaluation - transformation zone component present GENERAL CATEGORIZATION ? Negative for Intraepithelial Lesion or Malignancy ? Document reviewed and electronically signed by: ? MINO Greer(ASCP) ? Report Date: ??03/28/2003 08:49 End of Report VITALIY BURROWS 03/22/2003 03/24/2003 Lydia Aguilar DECAL TRANSFERRER PATHOLOGY ORDERABLES [facility] [address] [place] [address] documented in this encounter Visit Diagnoses Not on filedocumented in this encounter Care Teams Casino Cashier Manager Relationship Specialty Start Date End Date Marianna Garcia MD [facility] [address] [place] [address] PCP - General 09/28/08 08/05/16 documented as of this encounter
--- OUTSIDE RECORDS SUMMARY | 2023-09-08 13:47 | XMS_ITS | Encounter Summary ---
Author [facility] [place] [address] Care Team Providers Care Baseball Inspector And Repairer Name Role Phone Christel Arndt Primary Care Provider Encounter Details Date Type Department Care Team (Latest Contact Info) Description 06/24/2023 9:25 AM EDT Laboratory Appointment Lab [address] [place] [address] Stage 3b chronic kidney disease; Primary hypertension Social History Tobacco Use Types Packs/Day Years Used Date Smoking Tobacco: Never Smokeless Tobacco: Never Alcohol Use Standard Drinks/Week Comments Never 0 (1 standard drink = 0.6 oz pur e alcohol) Sex and Gender Information Value Date Recorded Sex Assigned at Not on file Gender Identity Not on file Sexual Orientation Not on file documented as of this encounter Plan of Treatment Upcoming Encounters Date Type Department Care Team (Late st Contact Info) Description 11/05/2023 10:00 AM EDT [place] [address] Deborah Richardson APRN documented as of this encounter Procedures Procedure Name Priority Date/Time Associated Diagnosis Comments HC PARATHYROID HORMONE(PTH INTACT Routine 06/24/2023 9:41 AM EDT Stage 3b chronic kidney disease Primary hypertension HEMOGRAM Routine 06/24/2023 9:41 AM EDT Stage 3b chronic kidney disease Primary hypertension DIFFERENTIAL, AUTOMATED Routine 06/24/2023 9:41 AM EDT Stage 3b chronic kidney disease Primary hypertension HC VITAMIN D TOTAL-25 HYDROXY Routine 06/24/2023 9:41 AM EDT Stage 3b chronic kidney disease Primary hypertension HC CBC,PLT & AUTO DIFF Routine 06/24/2023 9:41 AM EDT Stage 3b chronic kidney disease Primary hypertension TSH Routine 06/24/2023 9:41 AM EDT HC ALBUMIN, SERUM Routine 06/24/2023 9:4 1 AM EDT Stage 3b chronic kidney disease Primary hypertension BASIC METABOLIC PANEL (NON-FASTING) Routine 06/24/2023 9:41 AM EDT Stage 3b chronic kidney disease Primary hypertension HC PROTEIN, QUANTITATIVE, URINE Routine 06/24/2023 9:38 AM EDT Stage 3b chronic kidney disease Primary hypertension HC MICROALBUMIN, URINE Routine 06/24/2023 9:38 AM EDT Stage 3b chronic kidney disease Primary hypertension documented in this encounter Results * TSH (06/24/2023 9:41 AM EDT) TSH 2.03 0.27 - 4.20 mcIU/mL [facility] Comment: Reference Interval (mcIU/mL): Females: ??First Trimester: 0.23-3.88 ??Second Trimester: 0.22-3.90 ??Third Trimester: 0.44-4.66 Blood Venous Draw / Unknown 06/24/2023 9:41 AM EDT 06/24/2023 10:10 AM EDT Narrative Resulting Agency Comment Spec In Lab Kwame Day MD CHEMISTRY ORDERABLES [facility] [place] [address] * Differential, Automated (06/24/2023 9:41 AM EDT) Neutrophils % 46.7 % [facility] Neutr Abs (ANC) 2.30 1.70 - 6.10 x10(3)/[facility] Lymphocytes % 37.4 % [facility] Lymphocytes Abs 1.8 0.9 - 3.2 x10(3)/[facility] Monocytes % 11.1 % [facility] Monocyte Abs 0.6 0.3 - 0.9 x10(3)/[facility] Eosinophils % 3.6 % [facility] Eosinophils Abs 0.2 0.0 - 0.4 x10(3)/[facility] Basophils % 1.0 % [facility] Basophils Abs 0.0 0.0 - 0.1 x10(3)/[facility] Immature Gran % 0.20 % [facility] Comment: Immature granulocytes(IG's)percentage and absolute count will include metamyelocytes, myelocytes, and promyelocytes. Blood smears from CBCs yielding IG's will be scanned manually for concordance. If this scan disagrees with the automated IG or if promyelocytes are noted, a manual differential will be performed. Renetta Gran Abs 0.01 0.00 - 0.04 x10(3)/[facility] Blood 06/24/2023 9:41 AM EDT 06/24/2023 10:02 AM EDT Narrative Resulting Agency Comment Spec In Lab Kwame Day MD HEMATOLOGY ORDERABLE S [facility] [place] [address] * Hemogram (06/24/2023 9:41 AM EDT) WBC 4.9 4.0 - 9.5 x10(3)/[facility] RBC 4.28 4.00 - 5.21 x10(6)/[facility] Hemoglobin 12.5 11.7 - 15.5 g/dL [facility] Hematocrit 38.5 35.7 - 45.8 % [facility] MCV 90.0 82.6 - 94.4 [facility] MCH 29.2 27.1 - 32.0 pg [facility] MCHC 32.5 31.7 - 35.0 g/dL [facility] Platelets 243 145 - 357 x10(3)/[facility] RDWSD 43.8 37.0 - 46.0 [facility] RDWCV 13.2 11.5 - 14.1 % [facility] MPV 11.9 7.6 - 12.9 [facility] nRBC % Auto 0.0 % [facility] nRBC Abs Auto 0.000 0.000 - 0.000 x10(3)/[facility] Blood 06/24/2023 9:41 AM EDT 06/24/2023 10:02 AM EDT Narrative Resulting Agency Comment Spec In Lab Kwame Day MD HEMATOLOGY ORDERABLE S [facility] [place] [address] * Vitamin D, 25-Hydroxy (06/24/2023 9:41 AM EDT) 25-OH Vit D Total 46 21 - 100 ng/mL [facility] 25-OH Vit D Interp Sufficient [facility] Blood 06/24/2023 9:41 AM EDT 06/24/2023 10:01 AM EDT Narrative Resulting Agency Comment Spec In Lab Kwame Day MD CHEMISTRY ORDERABLES [facility] [place] [address] * PTH (06/24/2023 9:41 AM EDT) PTH 49 15 - 65 pg/mL [facility] Blood 06/24/2023 9:41 AM EDT 06/24/2023 10:02 AM EDT Narrative Resulting Agency Comment Spec In Lab Kwame Day MD CHEMISTRY ORDERABLES Performing Organization Address City/[facility]/ZIP Co de Phone Number [facility] [place] [address] * Albumin Level (06/24/2023 9:41 AM EDT) Pathologist [facility] Albumin 4.2 3.2 - 5.2 g/dL [facility] Blood 06/24/2023 9:41 AM EDT 06/24/2023 10:01 AM EDT Narrative Resulting Agency Comment Spec In Lab Kwame Day MD CHEMISTRY ORDERABLES Performing Organization Address City/[facility]/ZIP Co de Phone Number [facility] [place] [address] * (ABNORMAL) Basic Metabolic Panel (non-fasting) (06/24/2023 9:41 AM EDT) Pathologist [facility] Glucose Lvl 78 65 - 199 mg/dL [facility] Comment:Diabetes: >=200 mg/d L plus symptoms BUN 18 8 - 18 mg/dL [facility] Creatinine 1.36(H) 0.70 - 1.20 mg/dL [facility] Sodium 145 135 - 145 mmol/L [facility] Potassium 4.5 3.5 - 5.0 mmol/L [facility] Comment: Please note: ??Patients with WBC >100,000 may have falsely elevated Potassium levels. ??For accurate Potassium quantification in these patients send serum separator tube (gold top) for subsequent determinations. ??Contact the Clinical Chemistry Laboratory if there are any questions. Chloride 108(H) 98 - 107 mmol/L [facility] CO2 27 22 - 31 mmol/L [facility] Anion Gap 10 5 - 15 mmol/L [facility] Calcium 9.4 8.5 - 10.5 mg/dL [facility] Estimated GFR 43(L) >=60 mL/min/1. 73 m?? [facility] Comment: This patient's estimated GFR was calculated using the 2020 CKD-EPI equation. The estimated GFR can vary from the measured GFR by up to 30% in the absence of rapidly changing kidney function. Assessment of the estimated GFR is not appropriate when creatinine concentrations are rapidly changing. For clinical situations in which a more precise estimate of GFR is necessary, consider alternative methods of GFR estimation such as a 24-hour urine creatinine clearance. Assignment of CKD stage 1-5 for patients with an eGFR near the transition point between stages may be based on clinical assessment of muscle mass and symptoms in addition to eGFR. Blood 06/24/2023 9:41 AM EDT 06/24/2023 10:01 AM EDT Narrative Resulting Agency Comment Spec In Lab Kwame Day MD CHEMISTRY ORDERABLES [facility] [place] [address] * Protein/Creatinine Ratio, urine (06/24/2023 9:38 AM EDT) U Creatinine 21 mg/dL [facility] U Protein Ran <6 0 - 12 mg/dL [facility] Prot/Cre Ratio <0.3 ratio [facility] Urine 06/24/2023 9:38 AM EDT 06/24/2023 9:56 AM EDT Narrative Resulting Agency Comment Spec In Lab Kwame Day MD URINE ORDERABLES [facility] [place] [address] * U Albumin/Cre Ratio (06/24/2023 9:38 AM EDT) Alb/Cr Ratio, Random Not Calculated 0 - 29 mcg/mg Cr [facility] Comment: Reference Ranges: <30 mcg/mg: Normal 30-300 mcg/mg: Moderately increased albuminuria.* >300 mcg/mg: Severely increased albuminuria. * ACEI or ARB recommended if diabetic; suggested if BP>130/80 without diabetes ACEI or ARB strongly recommended if diabetic; recommended if BP>130/80 without diabetes Two of three specimens collected within a 3 to 6 month period should be abnormal before considering a patient to have albuminuria. Transient causes: exercise, fever, infection, CHF, marked hyperglycemia or hypertension. Persistent albuminuria indicates CKD and is an independent risk factor for ASCVD. ADA Standards of Medical Care in Diabetes-2016; KDIGO: Kidney International Supplements (2012) 2, 357? 362 Corrected from <14 mcg/mg Cr on 06/24/23 11:05:43 EDT by Sharyn Trivedi F. Nikolas Albumin Conc, Random <3.0 mg/L [facility] Comment:Corrected from <3.0 mg/L [NA] on 06/24/23 11:05:43 EDT by Sharyn Trivedi. U Creatinine 21 mg/dL [facility] Urine 06/24/2023 9:38 AM EDT 06/24/2023 9:56 AM EDT Narrative Resulting Agency Comment Spec In Lab Kwame Day MD URINE ORDERABLES Performing Organization Address City/State/[facility] Co de Phone Number [facility] [place] [address] documented in this encounter Visit Diagnoses Diagnosis Stage 3b chronic kidney disease Primary hypertension Unspecified essential hypertension documented in this encounter Care Teams Baseball Inspector And Repairer Relationship Specialty Start Date End Date Christel Arndt [address] [place] [address] PCP - General Family Medicine 06/28/22 documented as of this encounter
--- OUTSIDE RECORDS SUMMARY | 2023-09-08 13:47 | XMS_ITS | Encounter Summary ---
Author Organization [facility] Address [address] [place] [address] Care Team Providers Care Operating Room Registered Nurse Name Role Phone Unavailable Primary Care Provider Unavailabl e Encounter Details Date Type Department Care Team (Late st Contact Info) Description 10/18/2007 Before PRISM Converted Visit (Maple) [facility] - Maple conversion [address] [place] [address] Alvaro Espinal, DO [address] [facility] [address] [place] [address] Social History Tobacco Use Types Packs/Day Years Used Date Smoking Tobacco: Never Assessed Sex and Gender Information Value Date Recorded Sex Assigned at Not on file Gender Identity Not on file Sexual Orientation Not on file documented as of this encounter Plan of Treatment Not on file documented as of this encounter Procedures Procedure Name Priority Date/Time Associated Diagnosis Comments SURGICAL PATHOLOGY Routine 10/18/2007 0:00 EDT documented in this encounter Results * SURGICAL PATHOLOGY (10/18/2007 0:00 EDT) Pathology Report: SURGICAL PATHOLOGY REPORT ? Reports generated via electronic interface contain original data; ? however they are lacking the format of the original report. ? Caution should be taken when reading/interpretin g unformatted reports. ? Name: ? RUTHANN NICOLE ? Accession #: ? [id number] ? : ? 1955 (Age: 52) ??F ? Collect Date: ? 10/18/2007 ? Location: ? [facility] ? Receive Date: ? 10/20/2007 ? Provider: ALVARO ESPINAL DO ? Copy to: KRISTEN READY MD ? Final Pathologic Diagnosis: ? Appendix, appendectomy: ? - Acute appendicitis with periappendicitis and perforation. ? Document reviewed and electronically signed by: ? SOY S MERCY MD ? Report ??Date: 10/23/2007 16:39 ? By the signature above, the attending physician certifies that he/she has ? personally conducted a gross and/or microscopic examination of the described ? specimens and rendered or confirmed the above diagnosis. ? Specimen(s) Received: ? Appendix ? Clinical History: ? Appendicitis. ??LMP 13 Aug 08. ? Gross Description: ? Received in formalin labelled Nicole and appendix is a vermiform ? appendix measuring 7.5 cm in length and which varies from 0.6 cm in diameter ? proximally up to 2.0 cm in diameter at the tip of the specimen. ??The serosal ? surface of the appendix is king-pink with a moderate amount of king-white exudate attached. ??Also present is a 3.5 x 1.2 x 1.0 cm portion of lobulated king-yellow mesoappendix. ??Sections through the specimen reveal a lumen which varies from ?? 0.2 cm in diameter up to greater than 1.0 cm in diameter. ??The lumen is filled ?? with purulent king-yellow exudative material. ??A fecalith is not grossly ? identified. ??The wall is king-white and varies from 0.3 cm in thickness up to 0.5 cm in thickness. ??The tip of the appendix has a separate abscess cavity ? measuring 1.0 x 0.7 x 0.7 cm. ??The appendix appears to have ruptured at the tip and in two other areas ??in the mid-appendix. ??Landcare Officer sections are ? submitted as (A1) and (A2), including the inked resection margin adjacent to the staple line, en face. ??(MORGAN Javier)/ari ? End of Report ? VITALIY BURROWS 10/18/2007 10/20/2007 16: 56 EDT Alvaro Espinal DO PATHOLOGY ORDER NADER [facility] [address] [place] [address] documented in this encounter Visit Diagnoses Not on filedocumented in this encounter
--- OUTSIDE RECORDS SUMMARY | 2023-09-08 13:47 | XMS_ITS | Encounter Summary ---
Author Organization Formerly [facility] [place] [address] Care Team Providers Care Trim Machine Operator Name Role Phone Christel Arndt Primary Care Provider Encounter Details Date Type Department Care Team (Late st Contact Info) Description 01/06/2023 [place] [id number] Kwame Day MD [facility] [place] [address] Social History Tobacco Use Types Packs/Day Years Used Date Smoking Tobacco: Never Smokeless Tobacco: Never Alcohol Use Standard Drinks/Week Comments Never 0 (1 standard drink = 0.6 oz pur e alcohol) Sex and Gender Information Value Date Recorded Sex Assigned at Not on file Gender Identity Not on file Sexual Orientation Not on file documented as of this encounter Miscellaneous Notes * Telephone Encounter - Kwame Day MD - 01/06/2023 2:10 PM EST Talked to patient and discussed labs. Informed her that he is in CKD 3B but her creatinine has been stable. She is doing all right. Home blood pressure running slightly high 135/80 (her last blood pressure here in the clinic was 110/67. She was advised to bring her home blood pressure monitor next visit to calibrate it. documented in this encounter Plan of Treatment Upcoming Encounters Date Type Department Care Team (Late st Contact Info) Description 11/05/2023 10:00 AM EDT Office [place] [address] Deborah Richardson APRN documented as of this encounter Visit Diagnoses Not on filedocumented in this encounter Care Teams Trim Machine Operator Relationship Specialty Start Date End Date Christel Arndt [address] [place] [address] PCP - General Family Medicine 06/28/22 documented as of this encounter
--- OUTSIDE RECORDS SUMMARY | 2023-09-08 13:47 | XMS_ITS | Encounter Summary ---
Author Organization [facility] Address [address] [place] [address] Care Team Providers Care Director Of Video Analytics Name Role Phone Kaylene Pinedo MD Primary Care Provider [phone] Encounter Details Date Type Department Care Team (Late st Contact Info) Description 08/30/2016 Abstract [facility] Nephrology - [address] [address] Deangelo Cheek MD Social History Tobacco Use Types Packs/Day Years Used Date Smoking Tobacco: Never Sex and Gender Information Value Date Recorded Sex Assigned at Not on file Gender Identity Not on file Sexual Orientation Not on file documented as of this encounter Plan of Treatment Not on file documented as of this encounter Procedures Procedure Name Priority Date/Time Associated Diagnosis Comments VITAMIN D (25,OH) Routine 07/02/2016 PTH INTACT Routine 07/02/2016 PHOSPHORUS Routine 07/02/2016 LIPID PROFILE (INCLUDES CHOLESTEROL, TRIGLYCERIDES, HDL, LDL) Routine 07/02/2016 COMPLETE BLOOD COUNT Routine 05/10/2016 BUN Routine 05/10/2016 ALT Routine 05/10/2016 AST Routine 05/10/2016 GLUCOSE, SERUM Routine 05/10/2016 CREATININE Routine 05/10/2016 TSH Routine 09/21/2013 documented in this encounter Results * PTH INTACT (07/02/2016) PTH, External 38 [facility] Blood specimen (specimen) 07/02/2016 Historical Provider CHEMISTRY & BLOOD GAS ORDERABLES EXTERNAL FACILITY * VITAMIN D (25,OH) (07/02/2016) 25OH Vitamin D Tot, External 37.2 EXTERNAL FACILITY Blood specimen (specimen) 07/02/2016 Historical Provider CHEMISTRY & BLOOD GAS ORDERABLES Performing Organization Address City/[facility]/ZIP Co de Phone Number EXTERNAL FACILITY * PHOSPHORUS (07/02/2016) Phosphorus, External 4.3 EXTERNAL FACILITY Blood specimen (specimen) 07/02/2016 Historical Provider CHEMISTRY & BLOOD GAS ORDERABLES EXTERNAL FACILITY * LIPID PROFILE (INCLUDES CHOLESTEROL, TRIGLYCERIDES, HDL, LDL) (07/02/2016) Cholesterol, External 175 EXTERNAL FACILITY Triglycerides, External 72 EXTERNAL FACILITY HDL, External 63 [facility] LDL, External 104 [facility] Chol/HDL Ratio, External EXTERNAL FACILITY Fasting?, External EXTERNAL FACILITY Blood specimen (specimen) 07/02/2016 Historical Provider CHEMISTRY & BLOOD GAS ORDERABLES EXTERNAL FACILITY * ALT (05/10/2016) ALT, External 27 [facility] Blood specimen (specimen) 05/10/2016 Historical Provider CHEMISTRY & BLOOD GAS ORDERABLES Performing Organization Address [facility]/ZIP Co de Phone Number EXTERNAL FACILITY * AST (05/10/2016) AST, External 19 [facility] Blood specimen (specimen) 05/10/2016 Historical Provider CHEMISTRY & BLOOD GAS ORDERABLES Performing Organization Address [facility]/ZIP Co de Phone Number EXTERNAL FACILITY * GLUCOSE, SERUM (05/10/2016) Glucose, Serum, External 115 EXTERNAL FACILITY Blood specimen (specimen) 05/10/2016 Historical Provider CHEMISTRY & BLOOD GAS ORDERABLES Performing Organization Address [facility] Co de Phone Number EXTERNAL FACILITY * CREATININE (05/10/2016) Creatinine, External 1.27 EXTERNAL FACILITY GFR, Calculated, External EXTERNAL FACILITY Blood specimen (specimen) 05/10/2016 Historical Provider CHEMISTRY & BLOOD GAS ORDERABLES Performing Organization Address [facility] Co de Phone Number EXTERNAL FACILITY * BUN (05/10/2016) BUN, External 24 [facility] Blood specimen (specimen) 05/10/2016 Historical Provider CHEMISTRY & BLOOD GAS ORDERABLES Performing Organization Address [facility] Co de Phone Number EXTERNAL FACILITY * HEMAGRAM (05/10/2016) HCT, External 41.3 [facility] MCH, External [facility] MCV, External [facility] MCHC, External EXTER NAL FACILITY Hemoglobin, External 13.9 EXTERNAL FACILITY WBC, External [facility] RBC, External [facility] PLT, External [facility] RDW-CV, External EXTERNAL FACILITY Blood specimen (specimen) 05/10/2016 Historical Provider HEMATOLOGY & PF4 ORDERABLES EXTERNAL FACILITY * TSH (09/21/2013) TSH, External 1.62 [facility] Blood specimen (specimen) 09/21/2013 Historical Provider CHEMISTRY & BLOOD GAS ORDERABLES EXTERNAL FACILITY documented in this encounter Visit Diagnoses Not on filedocumented in this encounter Historical Medications * This list may reflect changes made after this encounter. Medication Sig Dispensed Refills Start Date End Date LEVALBUTEROL HCL INHALATION Inhale as directed as needed. 10/06/2018 B INFANTIS/B ANI/B NGOC/B BIFID (PROBIOTIC 4X ORAL) Take by mouth daily. 019 added in this encounter Care Teams Director Of Video Analytics Relationship Specialty Start Date End Date Kaylene Pinedo MD [address] [place] [address] PCP - General 08/07/16 documented as of this encounter
--- OUTSIDE RECORDS SUMMARY | 2023-09-08 13:47 | XMS_ITS | Encounter Summary ---
Author Organization [facility] [place] [address] Care Team Providers Care Solution Consultant Name Role Phone Christel Arndt Primary Care Provider [phone] Encounter Details Date Type Department Care Team (Latest Contact Info) Description 06/24/2023 Travel Social History Tobacco Use Types Packs/Day [...] 10:00 AM EDT [place] [address] Deborah Richardson APRN documented as of this encounter Visit Diagnoses Not on filedocumented in this encounter Care Teams Solution Consultant Relationship Specialty Start Date End Date Christel Arndt [address] [place] [address] PCP - General Family Medicine 06/28/22 documented as of this encounter
--- OUTSIDE RECORDS SUMMARY | 2023-09-08 13:47 | XMS_ITS | Encounter Summary ---
Author Organization [facility] Address [address] [place] [address] Care Team Providers Care Band Splicer Name Role Phone JoseMarianna MD Primary Care Provider [phone] Unknown, Provider Primary Care Provider Kaylene Pinedo MD Primary Care Provider [phone] Reason for Referral * Radiology Services (Routine) - Closed Specialty Diagnoses / Procedures Referred By Leidy lemon Referred To Contact Diagnoses Low back pain, unspecified back pain laterality, unspecified chronicity, with sciatica presence unspecified Procedures L SPINE 2-3 VIEWS Marianna Olson MD [address] [place] [id number] Referral ID Status Reason Start Date Expiration Date Visits Re quested Visits Authorized [id number] Closed 07/29/2016 1 1 Reason for Visit * Reason Onset Date Comments Appointment Related 07/29/2016 Encounter Details Date Type Department Care Team (Late st Contact Info) Description 07/29/2016 Orders Only [facility] Spine Program [place] [address] Marianna Olson MD [address] [place] [phone] Low back pain, unspecified back pain laterality, unspecified chronicity, with sciatica presence unspecified (Primary Dx) Social History Tobacco Use Types Packs/Day Years Used Date Smoking Tobacco: Never Assessed Sex and Gender Information Value Date Recorded Sex Assigned at Not on file Gender Identity Not on file Sexual Orientation Not on file documented as of this encounter Plan of Treatment Not on file documented as of this encounter Procedures Procedure Name Priority Date/Time Associated Diagnosis Comments L SPINE 2-3 VIEWS Routine 08/07/2016 11: 12 EDT Low back pain, unspecified back pain laterality, unspecified chronicity, with sciatica presence unspecified documented in this encounter Results * L SPINE 2-3 VIEWS (08/07/2016 11:12 EDT) Anatomical Region Laterality Modality Other 08/07/2016 11:1 2 EDT 08/07/2016 15:51 EDT Narrative 08/07/2016 15:51 EDT L SPINE 2-3 VIEWS ??08/07/2016 11:12 AM Signs and Symptoms/Comments: M54.5-Low back pain-ICD-10; Back pain/ L3 fracture Comparison AP film May 20, 2016. TECHNIQUE: AP and lateral view. The AP view demonstrates some sclerosis and lateral spurring at the L3-L4 level on the right. This is also seen previously. There is no new lateral subluxation. There is minimal levoscoliosis which may be secondary to the asymmetric disc narrowing which is greater right at L3-L4. The lateral view demonstrate no compression fractures. Narrowing of the L3-L4 disc is noted correlating with the AP film. There is some anterior and posterior spurring at the L3-L4 level and there may be some minimal anterolisthesis. No other AP malalignment. Sclerosis overlies the lower lumbar and lumbosacral facets consistent with degenerative change. Procedure Note Chidi Deluca MD - 08/07/2016 L SPINE 2-3 VIEWS 08/07/2016 11:12 AM Signs and Symptoms/Comments: M54.5-Low back pain-ICD-10; Back pain/ L3 fracture Comparison AP film May 20, 2016. TECHNIQUE: AP and lateral view. The AP view demonstrates some sclerosis and lateral spurring at the L3-L4 level on the right. This is also seen previously. There is no new lateral subluxation. There is minimal levoscoliosis which may be secondary to the asymmetric disc narrowing which is greater right at L3-L4. The lateral view demonstrate no compression fractures. Narrowing of the L3-L4 disc is noted correlating with the AP film. There is some anterior and posterior spurring at the L3-L4 level and there may be some minimal anterolisthesis. No other AP malalignment. Sclerosis overlies the lower lumbar and lumbosacral facets consistent with degenerative change. Marianna Olson MD IMG DIAGNOSTIC IMAGI NG ORDERABLES documented in this encounter Visit Diagnoses Diagnosis Low back pain, unspecified back pain laterality, unspecified chronicity, with sciatica presence unspecified- Primary documented in this encounter Care Teams Band Splicer Relationship Specialty Start Date End Date Marianna Garcia MD [address] [address] PCP - General 09/28/08 08/05/16 Unknown, Provider, [address] [address] PCP - General 08/06/16 08/06/16 Kaylene Pinedo MD [address] [place] [id number] PCP - General 08/07/16 documented as of this encounter
--- OUTSIDE RECORDS SUMMARY | 2023-09-08 13:47 | XMS_ITS | Encounter Summary ---
[facility] [place] [address] Care Team Providers Care Auto Washer Name Role Phone Christel Arndt Primary Care Provider Encounter Details Date Type Department Care Team (Late st Contact Info) Description 08/06/2023 External Results [place] [address] Maria Elena Acosta CMA Social History Tobacco Use Types Packs/Day Years [...] 10:00 AM [place] [address] Deborah Richardson APRN documented as of this encounter Procedures Procedure Name Priority Date/Time Associated Diagnosis Comments BASIC METABOLIC PANEL (NON-FASTING) Routine 07/31/2023 documented in this encounter Results * Basic Metabolic Panel (non-fasting) (07/31/2023) Glucose Lvl 74 BUN 17 Creatinine 1.6 Estimated GFR 35.13 Sodium 143 Potassium 4.2 Chloride 108 CO2 27 Calcium 8.8 Anion Gap 8 Blood 07/31/2023 Historical Provider CHEMISTRY ORDERAB LES documented in this encounter Visit Diagnoses Not on filedocumented in this encounter Care Teams Auto Washer Relationship Specialty Start Date End Date Christel Arndt [address] [place] [address] PCP - General Family Medicine 06/28/22 documented as of this encounter
--- OUTSIDE RECORDS SUMMARY | 2023-09-08 13:47 | XMS_ITS | Encounter Summary ---
Author Organization [facility] Address [address] [place] [address] Care Team Providers Care Zipper Measurer Name Role Phone Kristen Skelton MD Primary Care Provider [phone] Encounter Details Date Type Department Care Team (Late st Contact Info) Description 03/12/2007 Results Only [facility] - [facility] [address] [place] [address] Kristen Skelton MD [facility] [address] [place], [place] [address] Social History Tobacco Use Types Packs/Day Years Used Date Smoking Tobacco: Never Assessed Sex and Gender Information Value Date Recorded Sex Assigned at Not on file Gender Identity Not on file Sexual Orientation Not on file documented as of this encounter Plan of Treatment Not on file documented as of this encounter Procedures Procedure Name Priority Date/Time Associated Diagnosis Comments CYTOPATHOLOGY Routine 03/12/2007 0:00 EST documented in this encounter Results * CYTOPATHOLOGY (03/12/2007 0:00 EST) Pathology Report: CYTOPATHOLOGY REPORT Reports generated via electronic interface contain original data; however they are lacking the format of the original report. Caution should be taken when reading/interpreti ng unformatted reports. Name: ? GERARDORUTHANN ORDAZ Glo ? Accession #: ? [id number] : ? 1955 (Age: 52) ??F ?Collect Date: ? 03/12/2007 Location: ? [facility] ? Receive Date: ? 03/13/2007 Provider: ? KRISTEN SKELTON MD Copy to: ? CYTOLOGIC DIAGNOSIS: ? Tongue, curettage, cytologic evaluation: 1. ?No malignant cells present. 2. ? Benign squamous cells and bacteria present. ?? Document reviewed and electronically signed by: ? ROGE NICOLE MD Report Date: ??03/13/2007 16:57 By the signature above, the attending physician certifies that he/she has personally conducted a gross and/or microscopic examination of the described specimens and rendered or confirmed the above diagnosis. Specimen Type: ? Miscellaneous Fluid, Currettage of Tongue Clinical History: ? Chronic sore tongue/ erythematous, glossitis. ? Gross Description: ? 30cc' s of clear colorless fluid in Formalin were received and processed by selective cellular enhancement technique. ? End of Report VITALIY BURROWS 03/12/2007 03/13/2007 11: 17 EST Kristen Skelton MD PATHOLOGY ORDERABLES VITALIY [facility] [address] [place] [address] documented in this encounter Visit Diagnoses Not on filedocumented in this encounter Care Teams Zipper Measurer Relationship Specialty Start Date End Date Kristen Skelton MD [facility] [address] [place], [place] [address] PCP - General 09/28/08 08/05/16 documented as of this encounter
--- OUTSIDE RECORDS SUMMARY | 2023-09-08 13:47 | XMS_ITS | Encounter Summary ---
Author Organization Formerly [facility] [place] [address] Care Team Providers Care Heavy Equipment Service Technician Name Role Phone JayashreeAryaChristel Primary Care Provider Encounter Details Date Type Department Care Team (Late st Contact Info) Description 06/24/2023 10:30 AM EDT Office Visit [place] [address] Kwame Day MD [facility] [place] [address] Chronic fatigue Social History Tobacco Use Types Packs/Day Years [...] Sign Reading Time Taken Comments Blood Pressure 139/78 06/24/2023 10:17 AM EDT Pulse 74 06/24/2023 10:17 AM EDT Temperature - - Respiratory Rate - - Oxygen Saturation 98% 06/24/2023 10:17 AM EDT Inhaled Oxygen Concentration - - Weight 70.1 kg (154 lb 9.6 oz) 06/24/2023 10:17 AM EDT Height - - Body Mass Index 23.84 12/25/2022 10:42 AM EST documented in this encounter Patient Instructions * Patient Instructions* Kwame Day MD - 06/24/2023 10:30 AM EDT Try goodrx for prescription medication. Can try over the counter iron supplements for fatigue for a month. I will add on TSH levels and if there is any abnormalitiy I will call you. documented in this encounter Progress Notes * Kwame Day MD - 06/24/2023 10:30 AM EDT HYPERTENSION/ NEPHROLOGY PROGRESS NOTE PATIENT: Ruthann Guido : 1955 REASON FOR CONSULTATION: Consulted for renal insufficiency. ID: Ruthann Guido is a very pleasant 68 y.o. 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 Myrick in 2013, referred by her her urologist for renal insufficiency. The reason for her renal insufficiency was unknown. Her kidney function has been relatively stable for the past 10 years and did not have any proteinuria. She has GERD - more than 10 years and has been on pantoprazole. She does not have DM. She says her blood pressures have been always in the normal range and does not have any hypertension , but is on eplerenone, which has been changed to spironolactone for central serous chorioretinopathy and is being followed up by her relay technician Interval history: She has been checking her blood pressure religiously and has been running in the 120s over 70-80 range. She has not had her spironolactone yet and is awaiting the medication to be filled by the pharmacy. Continues to have a lot of fatigue, does not have any features of sleep apnea. I did do a TSH whichwas within normal limits, and her vitamin D levels were within normal limits. She continues to stay active, does not have any overt shortness of breath. ROS: 4 point review of sytem was done, everything was negative except for what was mentioned above. Social History Socioeconomic History Marital status: Spouse name: Not on file Number of children: Not on file Years of education: Not on file Highest education level: Not on file Occupational History Not on file Tobacco Use Smoking status: Never Smokeless tobacco: Never Vaping Use Vaping Use: Never used Substance and Sexual Activity Alcohol use: Never Drug use: Never Sexual activity: Not Currently Partners: Male control/protection: Post-menopausal Other Topics Concern Not on file Social History Narrative Not on file Social Determinants of Health Financial Resource Strain: Not on file Food Insecurity: Not on file Transportation Needs: Not on file Physical Activity: Not on file Intimate Partner Violence: Not on file Housing Stability: Not on file Outpatient medications: Current Outpatient Medications on File Prior to Visit Medication Sig Dispense Refill famotidine (Pepcid) 20 mg tablet Take 20 mg by mouth 2 times daily as needed. cholecalciferol, Vitamin D3, (Vitamin D3) 50 mcg (2,000 unit) tablet Take 1 tablet by mouth daily. eplerenone (Inspra) 25 mg tablet Take 50 mg by mouth daily. multivitamin (THERAGRAN) Tablet Take 1 tablet by mouth daily. carboxymethylcellulose (Refresh Plus) 0.5 % Dropperette Apply to eye daily. fexofenadine (RONALD) 180 mg Tablet Take 180 mg by mouth daily. montelukast (Singulair) 10 mg Tablet Take 10 mg by mouth daily. TURMERIC ORAL Take 3 capsules by mouth daily. albuteroL (Proventil) 2.5 mg /3 mL (0.083 %) Solution for Nebulization Every 6 hours. pantoprazole EC (Protonix) 40 mg Tablet, Delayed Release (E.C.) Take 40 mg by mouth 2 times daily. estradiol (ESTRACE) 0.01 % (0.1 mg/gram) Cream Place 2 g vaginally. 3 TIMES A WEEK levalbuterol (XOPENEX) 0.63 mg/3 mL nebulizer solution Take 1 ampule by nebulization every 4 hours as needed. acetaminophen (TYLENOL) 500 mg tablet Take 650 mg by mouth as needed for Pain. 1 - 2 tablets = 1,000 mg As needed traZODone (DESYREL) 50 mg tablet Take 100 mg by mouth nightly. epiNEPHrine (EPIPEN) 0.3 mg/0.3 mL injection 0.3 MG/0.3 ML, IM, as directed [DISCONTINUED] azithromycin (Zithromax) 250 mg tablet TAKE 2 TABLETS BY MOUTH ON DAY 1, THEN TAKE 1TABLET BY MOUTH DAILY ON DAYS 2 THROUGH 5 [DISCONTINUED] doxycycline (Lymepak) 100 mg tablet TAKE 1 TABLET BY MOUTH TWICE A DAY FOR 7 DAYS. AVOID DAIRY PRODUCTS 45 MINUTES BEFORE OR AFTER TAKING. [DISCONTINUED] LEVALBUTEROL TARTRATE INHL as needed. [DISCONTINUED] ondansetron ODT (Zofran-ODT) 8 mg disintegrating tablet No current facility-administered medications on file prior to visit. MEDICATIONS: Allergies Allergen Reactions Cis Free Text Allergy Peanuts, ham, rice, nuts, soy seeds Alendronate Other reaction(s): Constipation, Fullness, GERD - Gastro-esophageal reflux disease, Upset stomach Acetaminophen Other reaction(s): Unknown Animal Dander Other reaction(s): Unknown Asparagus Tingling of moth and tongue Birch Cat/Feline Products Cigarette Smoke Cis Free Text Allergy muscle relaxants. Cis Free Text Allergy many antidepressants. Cis Free Text Allergy many antianxiety. Cis Free Text Allergy multiple foods. Gulliver Corticosteroids (Glucocorticoids) Cranberry Fruit Dog Dander Erythromycin Base Fish Containing Products Fluticasone Propion-Salmeterol Other (See Comments) Fruit Extracts Other reaction(s): Unknown Nahed Gluten Other reaction(s): Unknown Grass Pollen Other reaction(s): Unknown Honey House Dust Hydrocodone Slowed breathing, heartbeat, nervousness, confusion, lightheadedness, restlessness, headache, general feeling of discomfort/illness Hydrocodone-Acetaminophen Other reaction(s): Unknown Slowed breathing, heartbeat, nervousness, confusion, lightheadedness, restlessness, headache, general feeling of discomfort/illness Iodinated Contrast Media Legumes Other reaction(s): Unknown Peas/whitman beans/black beans Levofloxacin Melon Methocarbamol Milk Patient tolerate cheese without issue Milk Based Formulas Mold Nsaids (Non-Steroidal Anti-Inflammatory Drug) Other [Unclassified Drug] Steroids Narcotic pain medications Maintenance Asthma inhaler (disc as well as inhalation) Oxycodone-Acetaminophen Slowed breathing, heartbeat, nervousness, confusion, lightheadedness, restlessness, headache, general feeling of discomfort/illness Peanut Peas Other reaction(s): Unknown Penicillins CIS - Unknown, CIS - Unknown Polyoxyethylated Stearyl Alcohol (Steareth-30) All alcoholic beaverages Pork/Porcine Containing Products Prunes Rice Starch Other reaction(s): Unknown Samir Shellfish Containing Products Soy Other reaction(s): Unknown Specialty Vitamins Products [Calcium-Vitamin D2-Soybean] Stone Fruit Other reaction(s): Unknown Tiotropium Bloom[place] Tree And Shrub Pollen Other reaction(s): Unknown Tree Nut Peanuts and products/all nuts and oils Tree Nuts [place] Pollen Other reaction(s): Unknown PHYSICAL EXAM: Last value Range last 24 hrs Temperature Temp: -- Heart Rate Heart Rate: 74 Heart Rate: [74] Blood Pressure BP: 139/78 BP: (139)/(78) Respiratory Rate Resp: -- SpO2 SpO2: 98 % SpO2: [98 %] Patient is awake alert did not seem to be in acute distress No jaundice oral mucosa moist Neck- supple trachea central Chest- bilateral air entry present clear to auscultation no wheeze no crepitation CVS-S1-S2 present, no murmur regurgitation gallops. Abdomen-nontender nondistended, bowel sounds present. Extremities-peripheral pulses present, Trace bilateral edema noted. Neuro-patient is awake alert, moving all 4 limbs, motor examination is grossly normal. No asterixis. STUDIES: Labs: CBC: Recent Labs 06/24/23 0941 WBC 4.9 HGB 12.5 PLATELET 243 Chemistry: Recent Labs 06/24/23 0941 NA 145 K 4.5 CL 108* CO2 27 BUN 18 CREATININE 1.36* GLUCOSE 78 Recent Labs 06/24/23 0941 CALCIUM 9.4 LFT's: Recent Labs 06/24/23 0941 ALBUMIN 4.2 Prot/Cre Ratio Date Value Ref Range Status 06/24/2023 <0.3 ratio Final Lab Results Component Value Date TPROTEINPEP 7.0 08/19/2011 ALBELECT 4.41 08/19/2011 Lab Results Component Value Date MICROALBUR <3.0 06/24/2023 No results found for: HA1C Lab Results Component Value Date PTH 49 06/24/2023 CALCIUM 9.4 06/24/2023 PHOS 2.7 10/28/2013 25-OH Vit D Total (ng/mL) Date Value Status 06/24/2023 46 Final IMPRESSION/ RECOMMENDATIONS: Ruthann Wolf is a very pleasant 66 y.o. female with PMHx significant for GERD, Asthma, CKD 3, was previously seen in the nephrology fellow clinic and later by Dr. Myrick in 2014, referred by her her urologist for renal insufficiency. Urine reviewed personally in the nephrology - bland. #CKD Stage 3B A1 -Etiology of CKD unknown. -Creatinine has been stable for many years. -Does not have any proteinuria. # Electorlytes Sodium normal Potassium within normal limits #Acid Base - not in acidosis. # BMM Calcium normal 25 OH Vit D 39 - wnl PTH 50, within target #Hemodynamics -Blood pressures within normal range. -Ambulatory blood pressure done on 06/28/2022-average 118/64 with a dipping of 19 %. -On eplerenone for central serous chorioretinopathy. #Hemoglobin - At target for his level of CKD # Fatigue- -Does not have any features of sleep apnea, TSH within normal limits vitamin D within normal limits. She does not have any overt edema or fluid overload. Fatigue not likely due to renal related. I advised her trial of iron tablets OTC for 1 month, unfortunately since she is not anemic, insurance will not cover for iron and ferritin levels. Plan/Recommendations: Primary care physician can consider statin because of her CKD. Recommend potassium levels in 2 weeks after initiation of spironolactone. Avoid nephrotoxic medications Please renally dose all meds. Thanks for letting us participate in the care of this patient. A total of 30 minutes was spent for reviewing chart, [id number] encounter, ordering labs/medication,documentation in the chart, and coordinating care. RTC 1 year CC-Christel Day MD 06/24/2023 Hypertension-Nephrology documented in this encounter Plan of Treatment Upcoming Encounters Date Type Department Care Team (Late st Contact Info) Description 11/05/2023 10:00 AM EDT [place] [id number] Deborah Richardson APRN documented as of this encounter Visit Diagnoses Diagnosis Chronic fatigue Other malaise and fatigue documented in this encounter Care Teams Heavy Equipment Service Technician Relationship Specialty Start Date End Date Christel Arndt [address] [place] [address] PCP - General Family Medicine 06/28/22 documented as of this encounter
--- OUTSIDE RECORDS SUMMARY | 2023-09-08 13:47 | XMS_ITS | Encounter Summary ---
Author Organization [facility] Address [address] [place] [address] Care Team Providers Care Cytology Teacher Name Role Phone Kristen Skelton MD Primary Care Provider [phone] Encounter Details Date Type Department Care Team (Late st Contact Info) Description 03/31/2006 Results Only [facility] [address] [place] [address] Kristen Skelton MD [facility] [address] [place], [place] [address] Social History Tobacco Use Types Packs/Day Years Used Date Smoking Tobacco: Never Assessed Sex and Gender Information Value Date Recorded Sex Assigned at Not on file Gender Identity Not on file Sexual Orientation Not on file documented as of this encounter Plan of Treatment Not on file documented as of this encounter Procedures Procedure Name Priority Date/Time Associated Diagnosis Comments CYTOPATHOLOGY Routine 03/31/2006 0:00 EST documented in this encounter Results * CYTOPATHOLOGY (03/31/2006 0:00 EST) Pathology Report: CYTOPATHOLOGY REPORT Reports generated via electronic interface contain original data; however they are lacking the format of the original report. Caution should be taken when reading/interpreti ng unformatted reports. Name: ? GERARDORUTHANN ORDAZ Glo ? Accession #: ? [id number] : ? 1955 (Age: 51) ??F ?Collect Date: ? 03/31/2006 Location: ? [facility] ? Receive Date: ? 04/02/2006 Provider: ?KRISTEN SKELTON MD Copy to: ? Specimen/Source: ?ThinPrep Pap Test, Source Not Provided, processed on P[employer]ria ThinPrep Imaging System, with manual evaluation Last Menstrual Period: ? 03/20/06 Previous Gynecologic Pathology: ? ASC-US: ??on pap 09/22 Other: ? Additional clinical information: Pap in 09/22 - HPV ? SPECIMEN ADEQUACY ? Satisfactory for Evaluation - transformation zone component present GENERAL CATEGORIZATION ? Other, see interpretation INTERPRETATION ? Endometrial cells present in a woman equal to or greater than age 40. Negative for Intraepithelial Lesion or Malignancy. EDUCATIONAL NOTES/RECOMMENDATI ONS ? Benign appearing endometrial cells on Pap tests are usually a normal finding in women with regular menstrual cycles, especially if the Pap test was collected during the first half of the menstrual cycle. There is data showing that endometrial cells on Pap tests may be associated with endometrial/uterin e abnormalities in post menopausal women or in perimenopausal women with abnormal bleeding. There is limited data on the significance of benign endometrial cells in post menopausal women on HRT. ??Clinical correlation is recommended. Note: ??The Pap test is not an accurate test for the screening of endometrial lesions and should not be used as a follow up in patients with clinical suspicion of endometrial pathology. ? Document reviewed and electronically signed by: ? BOBY VILLAVICENCIO MD ? Report Date: ??04/07/2006 10:30 End of Report [facility] 03/31/2006 04/02/2006 Kristen Skelton MD PATHOLOGY ORDERABLES Performing Organization Address City/State/[facility] Co de Phone Number [facility] [address] [place] [address] documented in this encounter Visit Diagnoses Not on filedocumented in this encounter Care Teams Cytology Teacher Relationship Specialty Start Date End Date Kristen Skelton MD [facility] [address] [place], [place] [address] PCP - General 09/28/08 08/05/16 documented as of this encounter
--- OUTSIDE RECORDS SUMMARY | 2023-09-08 13:47 | XMS_ITS | Encounter Summary ---
Author Organization [facility] Address [address] [place] [address] Care Team Providers Care Logistics Solution Manager Name Role Phone Kristen Garcia MD Primary Care Provider [phone] Encounter Details Date Type Department Care Team (Late st Contact Info) Description 03/09/2009 Orders Only [facility] [place] [facility] ([facility] [address], [place] [id number] Mandy Coreas MD [address] [place] [address] Social History Tobacco Use Types Packs/Day Years Used Date Smoking Tobacco: Never Assessed Sex and Gender Information Value Date Recorded Sex Assigned at Not on file Gender Identity Not on file Sexual Orientation Not on file documented as of this encounter Plan of Treatment Not on file documented as of this encounter Procedures Procedure Name Priority Date/Time Associated Diagnosis Comments SURGICAL PATHOLOGY Routine 03/09/2009 0:00 EST documented in this encounter Results * SURGICAL PATHOLOGY (03/09/2009 0:00 EST) Pathology Report: SURGICAL PATHOLOGY REPORT ? Reports generated via electronic interface contain original data; ? however they are lacking the format of the original report. ? Caution should be taken when reading/interpreti ng unformatted reports. ? Name: ? AUGUSTIN, RUTAHNN J ? Accession #: ? [id number] ? : ? 1955 (Age: 54) ??F ? Collect Date: ? 03/09/2009 ? Location: ? [facility] ? Receive Date: ? 03/10/2009 ? Provider: MANDY COREAS MD ? Copy to: KRISTEN READY MD ? Final Pathologic Diagnosis: ? Uterus, fallopian tubes, and ovaries, hysterectomy and bilateral ? salpingo-oophorect jas: ? 1. ?Endometrium: ? - Secretory. ? 2. ?? 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 ? 3. ?? Cervix: ?- No pathologic features. ? 4. ?? Serosa: ?- No pathologic features. ? 5. ?? Ovaries: ?- Serous cysts and cystic follicles. ? 6. ?? Fallopian tube, right: ?- No pathologic features. ? 7. ?? Fallopian tube, left: ?- Paratubal cyst. ? Document reviewed and electronically signed by: ? DELPHINE J BUTNOR MD ? Report ??Date: 03/13/2009 15:28 ? By the signature above, the attending physician certifies that he/she has ? personally conducted a gross and/or microscopic examination of the described ? specimens and rendered or confirmed the above diagnosis. ? Specimen(s) Received: ? Uterus, cervix, ovaries, fallopian tubes ? Clinical History: ? Menorrhagia, chronic pelvic pain, premenstrual dysphoric disorder ? Gross Description: ? Received in formalin labelled Ruthann Wolf and uterus, cervix, right and left fallopian tubes, right and left ovaries is a uterus with an attached ?? left fallopian tube and ovary. ??The right ovary and fallopian tube are detached. The uterus weighs 264 grams and measures 12.0 cm from cervix to fundus by 8.0 ?? cm from cornu to cornu by 6.5 cm from anterior to posterior. ??The serosa of the uterine corpus is focally disrupted and fragmented. ??The cervix is fragmented ?? with diffuse cautery. ??Opening the uterine corpus reveals king-red, hemorrhagic, lush endometrium with a maximum thickness of 0.6 cm. ??The myometrium is pink-knig and trabeculated with an average thickness of 3.0 cm. ??Within the myometrium are fifteen intramural circumscribed nodules ranging from 0.1 to 2.5 cm in greatest dimension ??with a whorled cut surface. ??The left ovary is 4.0 x 2.6 x 1.7 cm. ?? The surface is predominantly yellow-king and lobulated with hemorrhage at one ? end. ??Sectioning reveals a 1.7 cm in greatest dimension hemorrhagic corpus ? luteum underlying the area of hemorrhage on the surface. ??The remaining cut ? surface is huang-king with a 0.5 cm in diameter serous smooth walled cyst. ??The ?? left fallopian tube is 7.5 cm in length by 0.5 cm in average diameter. ??The ? serosa is huang-purple, smooth. and glistening with is a 1.2 cm in diameter ? paratubal cyst. ??Sectioning reveals a king-white cut surface with a pinpoint ? lumen throughout. ??The right ovary is 3.5 x 2.0 x 1.8 cm and has a king-yellow, ?? lobulated surface. ??Sectioning reveals a huang-king cut surface with two ? uniloculated cysts, 0.4 and 0.6 cm in diameter. ??Both have serous contents. ??The right fallopian tube is 6.0 cm in length by 0.5 cm in diameter. ??The serosa is ?? king-purple, smooth and glistening and sectioning reveals a king-white cut surface with a pinpoint lumen throughout. ??Also received is a 1.7 x 1.5 x 1.0 cm nodule that a king-white whorled cut surface. ??Video Game Creator sections are submitted as follows: ? BLOCK BARRON ? A1,A2 ?Cervix ? A3 ?Anterior full thickness endomyometrium ? A4,A5 ?Posterior full thickness endomyometrium bisected ? A6,A7 ?Video Game Creator intramural whorled nodules ? A8 ?Left ovary ? A9 ?Left fallopian tube and paratubal cysts ? A10 ?Right ovary ? A11 ?Right fallopian tube ? A12 ?Separate whorled nodule ? (L. Mojica)/cjh ? End of Report ? [facility] 03/09/2009 03/10/2009 7:5 4 EST Mandy Coreas MD PATHOLOGY ORDERABLES [facility] [address] [place] [address] documented in this encounter Visit Diagnoses Not on filedocumented in this encounter Care Teams Logistics Solution Manager Relationship Specialty Start Date End Date Kristen Garcia MD [facility] [address] [place] [address] PCP - General 09/28/08 08/05/16 documented as of this encounter
--- OUTSIDE RECORDS SUMMARY | 2023-09-08 13:47 | XMS_ITS | Clinical Summary ---
Author Organization [facility] [place] [address] Care Team Providers Care Radio Director Name Role Phone MilkaSherwin Christel Primary Care Provider [phone] Allergies Active Allergy Reactions Criticality Noted Date Comments Acetaminophen 05/14/2022 Other reaction(s): Unknown Alendronate Medium 06/27/2022 Other reaction(s): Constipation, Fullness, GERD - Gastro-esophageal reflux disease, Upset stomach Animal Dander 05/14/2022 Other reaction(s): Unknown Asparagus 08/21/2022 Tingling of moth and tongue Birch 05/14/2022 Cat/Feline Products 01/16/2022 Cigarette Smoke 08/21/2022 Cis Free Text Allergy High Peanuts, ham, rice, nuts, soy seeds Cis Free Text Allergy muscle relaxants. Cis Free Text Allergy many antidepressants. Cis Free Text Allergy many antianxiety. Cis Free Text Allergy multiple foods. [place] 10/06/2018 Corticosteroids (Glucocorticoids) Cranberry Fruit 08/21/2022 Dog Dander 01/16/2022 Erythromycin Base Fish Containing Products 10/06/2018 Fluticasone Propion-Salmeterol Other (See Comments) 05/14/2022 Fruit Extracts 05/14/2022 Other reaction(s): Unknown Nahed 10/06/2018 Gluten 05/14/2022 Other reaction(s): Unknown Grass Pollen 10/29/2021 Other reaction(s): Unknown Honey 08/21/2022 House Dust 05/14/2022 Hydrocodone 08/07/2016 Slowed breathing, heartbeat, nervousness, confusion, lightheadedness, restlessness, headache, general feeling of discomfort/illness Hydrocodone-Acetaminophen 08/07/2016 Other reaction(s): Unknown Slowed breathing, heartbeat, nervousness, confusion, lightheadedness, restlessness, headache, general feeling of discomfort/illness Iodinated Contrast Media 01/16/2022 Legumes 10/06/2018 Other reaction(s): Unknown Peas/whitman beans/black beans Levofloxacin 05/14/2022 Melon 10/06/2018 Methocarbamol 05/14/2022 Milk Patient tolerate cheese without issue Milk Based Formulas Mold 01/16/2022 Nsaids (Non-Steroidal Anti-Inflammatory Drug) 01/16/2022 Unclassified Drug 01/16/2022 Steroids Narcotic pain medications Maintenance Asthma inhaler (disc as well as inhalation) Oxycodone-Acetaminophen 08/07/2016 Slowed breathing, heartbeat, nervousness, confusion, lightheadedness, restlessness, headache, general feeling of discomfort/illness Peanut 08/30/2016 Peas 10/29/2021 Other reaction(s): Unknown Penicillins CIS - Unknown, CIS - Unknown Polyoxyethylated Stearyl Alcohol (Steareth-30) 08/21/2022 All alcoholic beaverages Pork/Porcine Containing Products 10/06/2018 Prunes 05/14/2022 Rice Starch 05/14/2022 Other reaction(s): Unknown Samir 10/06/2018 Shellfish Containing Products 10/06/2018 Soy 10/06/2018 Other reaction(s): Unknown Calcium-Vitamin D2-Soybean 05/14/2022 Stone Fruit 10/29/2021 Other reaction(s): Unknown Tiotropium Angora 10/06/2018 Tree And Shrub Pollen 05/14/2022 Other reaction(s): Unknown Tree Nut 10/06/2018 Peanuts and products/all nuts and oils Tree Nuts 05/14/2022 Mcgregor Pollen 05/14/2022 Other reaction(s): Unknown Medications Medication Sig Dispensed Refills Start Date End Date Status epiNEPHrine (EPIPEN) 0.3 mg/0.3 mL injection 0.3 MG/0.3 ML, IM, as directed 03/13/2010 Active acetaminophen (TYLENOL) 500 mg tablet Take 650 mg by mouth as needed for Pain. 1 - 2 tablets = 1,000 mg As needed 05/29/2010 Active traZODone (DESYREL) 50 mg tablet Take 100 mg by mouth nightly. Active levalbuterol (XOPENEX) 0.63 mg/3 mL nebulizer solution Take 1 ampule by nebulization every 4 hours as needed. Active estradiol (ESTRACE) 0.01 % (0.1 mg/gram) CreamIndications:CKD (chronic kidney disease), stage III Place 2 g vaginally. 3 TIMES A WEEK Active TURMERIC ORAL Take 3 capsules by mouth daily. Active albuteroL (Proventil) 2.5 mg /3 mL (0.083 %) Solution for Nebulization Every 6 hours. 05/23/2020 Active pantoprazole EC (Protonix) 40 mg Tablet, Delayed Release (E.C.) Take 40 mg by mouth 2 times daily. 07/04/2020 Active montelukast (Singulair) 10 mg Tablet Take 10 mg by mouth daily. Active fexofenadine (RONALD) 180 mg Tablet Take 180 mg by mouth daily. Active carboxymethylcellulo se (Refresh Plus) 0.5 % Dropperette Apply to eye daily. Active eplerenone (Inspra) 25 mg tablet Take 50 mg by mouth daily. Active multivitamin (THERAGRAN) Tablet Take 1 tablet by mouth daily. Active famotidine (Pepcid) 20 mg tablet Take 20 mg by mouth 2 times daily as needed. Active cholecalciferol, Vitamin D3, (Vitamin D3) 50 mcg (2,000 unit) tablet Take 1 tablet by mouth daily. Active Active Problems Problem Noted Date Diagnosed Date Cerumen impaction 06/24/2023 Chest tightness 06/24/2023 Itching of ear 06/24/2023 Neoplasm of skin 06/24/2023 Pyrosis 06/24/2023 Viral respiratory illness 06/24/2023 Melanocytic nevus 06/27/2022 Adverse effect of antiallerg ic and antiemetic drugs, initial encounter 06/27/2022 Allergic rhinitis due to pollen 06/27/2022 Dysphagia 06/27/2022 Food intolerance 06/27/2022 Functional dyspepsia 06/27/2022 H/O osteopenia 06/27/2022 History of adenomatous polyp of colon 06/27/2022 Lesion of liver 06/27/2022 Overview (06/27/2022): on US 2020, then MRI looked like benign lesions Localized, primary osteoarthritis of hand 2022 Lower esophageal ring 06/27/2022 Osteoporosis 06/27/2022 Recurrent major depression 06/27/2022 Screening for malignant neoplasm 06/27/2022 Stage 3a chronic kidney disease 06/27/2022 Stress 06/27/2022 Stress-related problem 06/27/2022 Lower back pain 06/27/2022 Transient neurologic deficit 06/27/2022 Tremor 06/27/2022 Ultrasound scan abnormal 06/27/2022 OAB (overactive bladder) 07/31/2021 Chronic pelvic pain in female 07/31/2021 Acute UTI (urinary tract infection) 04/30/2021 Mixed stress and urge urinary incontinence 04/10 IC (interstitial cystitis) 04/10/2021 History of UTI 04/10/2021 Renal scarring 04/10/2021 Disequilibrium 07/13/2019 Overview (07/13/2019): Antithrombotic stroke prevention aspirin Statin therapy Blood Pressure goals/control Glycemic control No results found for: HA1C Smoking/tobacco Social History Tobacco Use Smoking Status Never Smoker VTE ppx Fluids Nutrition Regular diet Discharge barriers (eg., guardianship, advance directive, insurance) Mobility Last BM 07/12/19 Review standing lab orders Educational packet given and specific education provided today NIHSS (approx 36 hour post t-PA and intervention) Mixed hyperlipidemia 03/07/2019 History of multiple allergies 03/07/2019 Arthritis 03/04/2019 Asthma 03/04/2019 Herpes simplex 03/04/2019 History of depression 03/04/2019 Stricture of esophagus 03/04/2019 Severe persistent asthma without complication Neck pain 08/27/2017 Closed compression fracture of lumbar vertebra 0 08/07/2016 Lumbar facet arthropathy 08/07/2016 Osteopenia 08/07/2016 CKD (chronic kidney disease) 05/12/2012 HTN (hypertension) 05/12/2012 GERD (gastroesophageal reflux disease) 3 Irritable bowel syndrome with constipation 03/04 Chronic fatigue syndrome 03/04/1999 Insomnia 03/04/1999 Encounters Date Type Department Care Team Description 08/22/2023 Telephone [place] [address] Kwame Day MD 08/18/2023 Telephone [place] [address] Kwame Day MD 08/13/2023 Telephone [place] [address] Tosha Leal, RN 08/12/2023 Telephone Ne[place] [address] Tosha Leal, RN 08/06/2023 External Results [place] [address] Maria Elena Acosta CMA 06/24/2023 10:30 AM EDT Office Visit Neph[place] [address] Kwame Day MD Chronic fatigue 06/24/2023 9:25 AM EDT Laboratory Appointment Lab [address] [place] [address] Stage 3b chronic kidney disease; Primary hypertension 06/24/2023 Travel from Last 3 Months Immunizations Name Administration Dates Next Due Covid-19 (Pfizer), Purple Ca p Monovalent Vaccine (12yrs+) 05/23/2020 Influenza Unspecified Formulation 2020,12/20/2019,02/08/2017,04/07,11/23/2012 Pneumococcal Conjugate (Prevnar 13) 2021 Pneumococcal Conjugate (Prevnar 20) 03/17/2022 Pneumococcal Polysaccharide (Pneumovax 23) 09/08/2015 Td Adult, Absorbed 11/28/1994 Td Adult, Absorbed, Preservative Free 11/28/1994 Tdap 06/15/2007 Zoster (ShingRix), Recombinant 11/22/2019,1999 Family History Medical History Relation Comments Allergic Rhinitis Son Asthma Son Relation Status Comments Son Alive Social History Tobacco Use Types Packs/Day Years [...] Pulse 74 06/24/2023 10:17 AM EDT Temperature 36.6 ??C (97.9 ??F) 07/13/2019 7:51 AM ED T Respiratory Rate 16 05/13/2022 11:33 AM EDT Oxygen Saturation 98% 06/24/2023 10:17 AM EDT Inhaled Oxygen Concentration - - Weight 70.1 kg (154 lb 9.6 oz) 06/24/2023 10:17 AM EDT Height 171.5 cm (5' 7.52) 12/25/2022 10:[address] Body Mass Index 23.84 12/25/2022 10:42 AM EST Plan of Treatment Upcoming Encounters Date Type Department Care Team (Late st Contact Info) Description 11/05/2023 10:00 AM EDT Office [place] [address] Deborah Richardson APRN Health Maintenance Due Date Last Done Comments CT Colonography 1956 Colonoscopy 1956 Colorectal Cancer Screening 1956 FIT DNA 1956 FIT 1956 Sigmoidoscopy (10 year) with FIT yearly 1956 Sigmoidoscopy 1956 Hepatitis C Screening 01/14/1974 Lipid Screening 01/14/1974 Breast Cancer Share Decision Needed 1996 Breast Cancer screening 1996 Tetanus vaccine 06/14/2017 06/15/2007, 11/17, 11/28/1994 Bone Density Scan 01/14/2021 Covid-19 Vaccine (2 - 2022-2 4 season) 2022 05/23/2020 Influenza (Flu) vaccine (1 o f 1 - Influenza standard series) 10/19/2023 12/25/2020, 12/20/2019, 02/08/2017, Additional history exists Tdap adult Completed 06/15/2007 Zoster vaccine Completed 11/22/2019, 09/14/1999 Pneumoccocal Vaccine: 65+ Completed 2022, 2021, 09/08/2015 Procedures Procedure Name Priority Date/Time Associated Diagnosis Comments BASIC METABOLIC PANEL (NON-FASTING) Routine 07/31/2023 LAB SCAN 07/31/2023 12:00 AM EDT TSH Routine 06/24/2023 9:41 AM EDT DIFFERENTIAL, AUTOMATED Routine 06/24/2023 9:41 AM EDT Stage 3b chronic kidney disease Primary hypertension HEMOGRAM Routine 06/24/2023 9:41 AM EDT Stage 3b chronic kidney disease Primary hypertension HC VITAMIN D TOTAL-25 HYDROXY Routine 06/24/2023 9:41 AM EDT Stage 3b chronic kidney disease Primary hypertension HC PARATHYROID HORMONE(PTH INTACT Routine 06/24/2023 9:41 AM EDT Stage 3b chronic kidney disease Primary hypertension HC CBC,PLT & AUTO DIFF Routine 06/24/2023 9:41 AM EDT Stage 3b chronic kidney disease Primary hypertension HC ALBUMIN, SERUM Routine 06/24/2023 9:4 1 AM EDT Stage 3b chronic kidney disease Primary hypertension BASIC METABOLIC PANEL (NON-FASTING) Routine 06/24/2023 9:41 AM EDT Stage 3b chronic kidney disease Primary hypertension HC PROTEIN, QUANTITATIVE, URINE Routine 06/24/2023 9:38 AM EDT Stage 3b chronic kidney disease Primary hypertension HC MICROALBUMIN, URINE Routine 06/24/2023 9:38 AM EDT Stage 3b chronic kidney disease Primary hypertension from Last 3 Months Results * Scan Doc: Lab (07/31/2023 12:00 AM EDT) Narrative 07/31/2023 12:00 AM EDT Ordered by an unspecified provider. Scanning Provider MEDIA MGR SCAN EXT O RDR/RSLT * Basic Metabolic Panel (non-fasting) (07/31/2023) Only the most recent of2 resultswithin the time period is included. Pathologist [facility] Glucose Lvl 74 BUN 17 Creatinine 1.6 Estimated GFR 35.13 Sodium 143 Potassium 4.2 Chloride 108 CO2 27 Calcium 8.8 Anion Gap 8 Blood 07/31/2023 Historical Provider CHEMISTRY ORDERAB LES * PTH (06/24/2023 9:41 AM EDT) Pathologist [facility] PTH 49 15 - 65 pg/mL [facility] Blood 06/24/2023 9:41 AM EDT 06/24/2023 10:02 AM EDT Narrative Resulting Agency Comment Spec In Lab Kwame Day MD CHEMISTRY ORDERABLES [facility] [place] [address] * Hemogram (06/24/2023 9:41 AM EDT) [facility] WBC 4.9 4.0 - 9.5 x10(3)/[facility] LABORATORY RBC 4.28 4.00 - 5.21 x10(6)/[facility]ORY Hemoglobin 12.5 11.7 - 15.5 g/dL [facility] Hematocrit 38.5 35.7 - 45.8 % [facility] MCV 90.0 82.6 - 94.4 fL [facility] MCH 29.2 27.1 - 32.0 pg [facility] MCHC 32.5 31.7 - 35.0 g/dL [facility] Platelets 243 145 - 357 x10(3)/[facility] LABORATORY RDWSD 43.8 37.0 - 46.0 [facility] LABORATORY RDWCV 13.2 11.5 - 14.1 % [facility] MPV 11.9 7.6 - 12.9 [facility]ORY nRBC % Auto 0.0 % [facility] nRBC Abs Auto 0.000 0.000 - 0.000 x10(3)/[facility] Blood 06/24/2023 9:41 AM EDT 06/24/2023 10:02 AM EDT Narrative Resulting Agency Comment Spec In Lab Kwame Day MD HEMATOLOGY ORDERABLE S [facility] [place] [address] * Differential, Automated (06/24/2023 9:41 AM EDT) Neutrophils % 46.7 % [facility] Neutr Abs (ANC) 2.30 1.70 - 6.10 x10(3)/[facility] Lymphocytes % 37.4 % [facility] Lymphocytes Abs 1.8 0.9 - 3.2 x10(3)/[facility] Monocytes % 11.1 % [facility] Monocyte Abs 0.6 0.3 - 0.9 x10(3)/[facility] Eosinophils % 3.6 % [facility] Eosinophils Abs 0.2 0.0 - 0.4 x10(3)/[facility] Basophils % 1.0 % [facility] Basophils Abs 0.0 0.0 - 0.1 x10(3)/[facility] Immature Gran % 0.20 % [facility] Comment: Immature granulocytes(IG's)percentage and absolute count will include metamyelocytes, myelocytes, and promyelocytes. Blood smears from CBCs yielding IG's will be scanned manually for concordance. If this scan disagrees with the automated IG or if promyelocytes are noted, a manual differential will be performed. Renetta Gran Abs 0.01 0.00 - 0.04 x10(3)/mcL [facility] Blood 06/24/2023 9:41 AM EDT 06/24/2023 10:02 AM EDT Narrative Resulting Agency Comment Spec In Lab Kwame Day MD HEMATOLOGY ORDERABLE S Performing Organization Address City/[facility]/ZIP Co de Phone Number [facility] [place] [address] * Vitamin D, 25-Hydroxy (06/24/2023 9:41 AM EDT) 25-OH Vit D Total 46 21 - 100 ng/mL [facility] 25-OH Vit D Interp Sufficient [facility] Blood 06/24/2023 9:41 AM EDT 06/24/2023 10:01 AM EDT Narrative Resulting Agency Comment Spec In Lab Kwame Day MD CHEMISTRY ORDERABLES Performing Organization Address [facility] Co de Phone Number [facility] [place] [address] * TSH (06/24/2023 9:41 AM EDT) TSH 2.03 0.27 - 4.20 mcIU/mL [facility] Comment: Reference Interval (mcIU/mL): Females: ??First Trimester: 0.23-3.88 ??Second Trimester: 0.22-3.90 ??Third Trimester: 0.44-4.66 Blood Venous Draw / Unknown 06/24/2023 9:41 AM EDT 06/24/2023 10:10 AM EDT Narrative Resulting Agency Comment Spec In Lab Kwame Day MD CHEMISTRY ORDERABLES Performing Organization Address City/[facility]/ZIP Co de Phone Number [facility] [place] [address] * Albumin Level (06/24/2023 9:41 AM EDT) Albumin 4.2 3.2 - 5.2 g/dL [facility] Blood 06/24/2023 9:41 AM EDT 06/24/2023 10:01 AM EDT Narrative Resulting Agency Comment Spec In Lab Kwame Day MD CHEMISTRY ORDERABLES Performing Organization Address City/[facility] Co de Phone Number [facility] [place] [address] * Protein/Creatinine Ratio, urine (06/24/2023 9:38 AM EDT) U Creatinine 21 mg/dL [facility] U Protein Ran <6 0 - 12 mg/dL [facility] Prot/Cre Ratio <0.3 ratio [facility] Urine 06/24/2023 9:38 AM EDT 06/24/2023 9:56 AM EDT Narrative Resulting Agency Comment Spec In Lab Kwame Day MD URINE ORDERABLES Performing Organization Address [facility] Co de Phone Number [facility] [place] [address] * U Albumin/Cre Ratio (06/24/2023 9:38 AM EDT) Alb/Cr Ratio, Random Not Calculated 0 - 29 mcg/mg Cr [facility] Comment: Reference Ranges: <30 mcg/mg: [...] on 06/24/23 11:05:43 EDT by Sharyn Trivedi Albumin Conc, Random <3.0 mg/L [facility] Comment:Corrected from <3.0 mg/L [NA] on 06/24/23 11:05:43 EDT by Sharyn Trivedi Creatinine 21 mg/dL [facility] Urine 06/24/2023 9:38 AM EDT 06/24/2023 9:56 AM EDT Narrative Resulting Agency Comment Spec In Lab Kwame Day MD URINE ORDERABLES [facility] [place] [address] from Last 3 Months Advance Directives Documents on File Type Date Recorded Patient Sexologist Expl anation Advance Directives and Livin g Will 06/07/2019 2:18 PM Advance Directives and Livin g Will 05/27/2019 10:18 AM * Full Code (Latest Code Status on File) Date Activated Date Inactivated Comments 07/13/2019 3:29 AM 07/13/2019 7:35 PM Question Answer Comments Does patient have capacity to make decision: Yes Care Teams Radio Director Relationship Specialty Start Date End Date Christel Arndt [address] [place] [address] PCP - General Family Medicine 06/28/22
--- OUTSIDE RECORDS SUMMARY | 2023-09-08 13:47 | XMS_ITS | Encounter Summary ---
Author Organization [facility] Address [address] [place] [address] Care Team Providers Care Spd Tech Name Role Phone Kaylene Pinedo MD Primary Care Provider [phone] Reason for Visit * Reason Comments Back Pain * Consult (Routine) - Closed Specialty Diagnoses / Procedures Referred By Leidy lemon Referred To Contact Orthopedic Surgery Diagnoses Low back pain Say Ovalles PA-C [address] [place] [address] [facility] [address] [place] [address] Referral ID Status Reason Start Date Expiration Date Visits Re quested Visits Authorized [id number] Closed 1 1 Encounter Details Date Type Department Care Team (Late st Contact Info) Description 08/07/2016 9:15 EDT Office Visit [facility] [place] [address] Marianna Olson MD [address] [facility] [place] [address] Lumbar facet arthropathy (Primary Dx); Closed compression fracture of lumbar vertebra, with routine healing, subsequent encounter; Osteopenia of multiple sites Discharge Disposition: Auto Discharge Social History Tobacco Use Types Packs/Day Years Used Date Smoking Tobacco: Never Sex and Gender Information Value Date Recorded Sex Assigned at Not on file Gender Identity Not on file Sexual Orientation Not on file documented as of this encounter Last Filed Vital Signs Vital Sign Reading Time Taken Comments Blood Pressure - - Pulse - - Temperature - - Respiratory Rate - - Oxygen Saturation - - Inhaled Oxygen Concentration - - Weight 66.2 kg (146 lb) 08/07/2016 0929 EDT Height 171.5 cm (5' 7.5) 08/07/2016 0929 EDT Body Mass Index 22.53 08/07/2016 0929 EDT documented in this encounter Discharge Diagnoses Diagnosis M54.5 Low back pain-M54.5[ICD-10-CM] documented in this encounter Discharge Disposition Disposition Code Departure Means Destination Auto Discharge documented in this encounter Progress Notes * Marianna Olson MD - 08/07/2016 0915 EDT This office note has been dictated. * Marianna Olson MD - 08/07/2016 0000 EDT [facility] NEW PATIENT EVALUATION - 08/07/2016 REFERRING PROVIDER: Kaylene Pinedo MD PROBLEM: Back extension with resultant lumbar back pain. HISTORY: Ruthann Wolf is a 51-year-old female who came accompanied with her for opinion regarding treatment of an L3 superior endplate fracture. Her history dates back to the fall of 2015. 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 She was doing a back extension and experienced significant low back pain. She denies any preexisting trauma. That day she was able to continue with the class, later in the day, used Tylenol to control the pain. She sought treatment early on with an osteopath, no films. This was back in May 2016. She did also seek chiropractic treatment and continued with ballet. Most mornings now when she wakes in the morning where she feels it is hard to get out of bed. She does do lengthening exercises, which she finds to be helpful. She does as a the day goes on, feels better. She is using Tylenol sparingly once to twice a week. She notes any lifting such as lifting her granddaughter worsens her pain. She has had a bone density study 07/01/2016. She has a T-score concordant with osteopenia, in the left forearm, almost osteoporosis at a -2.3. The findings during that exam showed a minimal superior endplate fracture of the L3 vertebral body. She is here today regarding treatment options. Today, she has been not experiencing any bowel or bladder incontinence, no saddle anesthesia, no numbness or tingling in the legs. She does feel better with standing, lying down, heat, and lengthening exercises and feels worse with any prolonged sitting, walking, after exercise of driving, lifting,pushing or pulling and bending. PAST MEDICAL HISTORY: Fibromyalgia in the past, which has resolved, chronic fatigue syndrome, IBS, interstitial cystitis of the bladder, chronic kidney disease. PAST SURGICAL HISTORY: Complete hysterectomy, hernia repair, appendectomy, cholecystectomy, sinus surgery, tonsillectomy in 64, 1960 right inguinal hernia and 59, left inguinal hernia. ALLERGIES: Numerous, PENICILLIN, STEROIDS, MUSCLE RELAXANTS, VICODIN, PERCOCET, HYDROCODONE and related drugs, MOST ANTIDEPRESSANTS, ANTIANXIETY MEDICATIONS, MOST ASTHMA INHALERS and ERYTHROMYCIN. Numerous food allergies and environmental allergies. MEDICATIONS: Cholecalciferol. Vitamin D3 2000 units daily. Premarin vaginal cream. REVIEW OF SYSTEMS: Pertinent positives per HPI, the remainder are negative. OBJECTIVE: Very pleasant. BMI of 23.41. She is able to transition from sit to stand independently. Her gait is normal. She is able to heel/toe walk. Back exam: No nevi, hair wen or rash. There is no ecchymoses. Increasing tone noted in the thoracolumbar spine, slightly increased lumbar lordosis. She is able to forward flex fingertips to the floor pain free. Lumbar extension is guarded. She has negative straight leg raise. Rotary motion of the hips are pain free. Strength bilateral lower extremities normal. MSR symmetric, 1+ patellar and absent Achilles. Babinski is downgoing, no ankle clonus. Radiographs report from [facility] dated 05/20/2016. Impression: Mild to moderate degenerative changes in the lumbar spine. Degenerative changes in the facets throughout the lumbar spine, particularly L4- 5, L5-S1. Repeat x-rays today, AP, lateral. AP no scoliosis, SI joints, some mild degenerative change. Lateral x-ray reveals a mid-body mild endplate deformity of L3, degenerative changes noted in the facet joints at L4-5, L5-S1 disk space degeneration also noted at L3-4 and L5-S1. Report of bone density study: Date of exam 07/02/2016. Conclusion: The findings are consistent withosteopenia, according to WHO criteria. Vertebral scanogram shows minimal endplate compression fracture of what appears to be superior endplate of L3. ASSESSMENT: A 61-year-old female with axial back pain. MEDICAL DECISION MAKING: I do believe her pain is more a function of the degenerative facets and the mild superior endplate fracture of L3. I did spend a bit of time with her and her discussing the option of moving forward with bisphosphonate. We will defer to PCP. Did provide counseling regarding return to exercise. At this point, she would benefit from Pilates more of a lumbar stabilization and lengthening program. May resume ballet, but would avoid any high impact aerobics or any repetitive lumbar extension. For treatment of the axial back pain I am aware NSAIDs are contraindicated secondary to her allergies, but could move forward with lumbar facet injections and/or medial branch blocks and ablation. PLAN: 1. Activity modification with exercise. 2. Avoidance of high-impact aerobics. 3. Call the office if she would like to move forward with medial branch blocks and/or facet injections. Greater than 25 minutes spent [id number] with patient, clinical exam, review of radiographic data. Greater than 50% of the office visit was spent with education regarding above. Marianna Olson MD 12 46 PM - Marianna Olson MD ln Dictation ID: [id number] cc: Say Ovalles PA-C, [address] [id number] documented in this encounter Plan of Treatment Not on file documented as of this encounter Visit Diagnoses Diagnosis Lumbar facet arthropathy- Primary Lumbosacral spondylosis without myelopathy Closed compression fracture of lumbar vertebra, with routine healing, subsequent encounter Osteopenia of multiple sites documented in this encounter Historical Medications * This list may reflect changes made after this encounter. Medication Sig Dispensed Refills Start Date End Date EPINEPHrine (EPIPEN) 0.3 mg/0.3 mL injection Inject 0.3 mg into the muscle once as needed. traZODone (DESYREL) 50 mg tablet Take 50 mg by mouth at bedtime. fexofenadine (RONALD) 180 mg tablet Take 180 mg by mouth daily. fluticasone (FLOVENT) 110 mcg/actuation inhaler Inhale 110 mcg as directed 2 times daily. 10/06/2018 omega 7-imd-krg-fish oil 120-180-600 mg capsule Take by mouth. Multivitamins with Minerals tablet tablet Take 1 Tab by mouth daily. 10/06/2018 UNABLE TO FIND Med Name: Ning anastacia 10/06/2018 VITAMIN D3-VITAMIN K2, MK4, ORAL Take by mouth. 10/06/2018 added in this encounter Care Teams Spd Tech Relationship Specialty Start Date End Date Kaylene Pinedo MD [address] [place] [id number] PCP - General 08/07/16 documented as of this encounter
--- OUTSIDE RECORDS SUMMARY | 2023-09-08 13:47 | XMS_ITS | Encounter Summary ---
Author Organization [facility] Address [address] [place] [address] Care Team Providers Care Authorization Representative Name Role Phone Marianna Garcia MD Primary Care Provider [phone] Encounter Details Date Type Department Care Team (Late st Contact Info) Description 03/17/2001 Results Only [facility] [address] [place] [address] Mell Soto, VENEER PULLER [address] [id number] Social History Tobacco Use Types Packs/Day Years Used Date Smoking Tobacco: Never Assessed Sex and Gender Information Value Date Recorded Sex Assigned at Not on file Gender Identity Not on file Sexual Orientation Not on file documented as of this encounter Plan of Treatment Not on file documented as of this encounter Procedures Procedure Name Priority Date/Time Associated Diagnosis Comments CYTOPATHOLOGY Routine 03/17/2001 0:00 EST documented in this encounter Results * CYTOPATHOLOGY (03/17/2001 0:00 EST) Pathology Report: CYTOPATHOLOGY REPORT Reports generated via electronic interface contain original data; however they are lacking the format of the original report. Caution should be taken when reading/interpreti ng unformatted reports. Name: ? RUTHANN WOLF ? Accession #: ? [id number] : ? 1955 (Age: 46) ??F ?Collect Date: ? 03/17/2001 Location: ? [facility] ? Receive Date: ? 03/20/2001 Provider: ?MELL SOTO VENEER PULLER Copy to: ? Specimen/Source: ?ThinPrep Pap Test, Cervix/Endocervix Last Menstrual Period: ? 03/08/01 Previous Gynecologic Pathology: ? ASC-US: 10 Years ago Treatment History: ? Miscellaneous treatment: D/C X4 ? SPECIMEN ADEQUACY ? Satisfactory for Evaluation - transformation zone component present - scant squamous epithelial component secondary to excessive blood GENERAL CATEGORIZATION ? Negative for Intraepithelial Lesion or Malignancy INTERPRETATION ? Reactive cellular changes associated with inflammation present (includes repair). ? Document reviewed and electronically signed by: ? Quita Bruno MD PhD ? Report Date: ??03/27/2001 08:52 End of Report [facility] 03/17/2001 03/20/2001 Mell Soto NP PATHOLOGY ORDERABLES [facility] [address] [place] [address] documented in this encounter Visit Diagnoses Not on filedocumented in this encounter Care Teams Authorization Representative Relationship Specialty Start Date End Date Marianna Garcia MD [facility] [address] [place] [address] PCP - General 09/28/08 08/05/16 documented as of this encounter
--- OUTSIDE RECORDS SUMMARY | 2023-09-08 13:47 | XMS_ITS | Encounter Summary ---
Author Organization [facility] [place] [address] Care Team Providers Care Pool Player Name Role Phone Christel Arndt Primary Care Provider Encounter Details Date Type Department Care Team (Late st Contact Info) Description 08/13/2023 Telephone Nephrology [place] [address] Tosha Leal, ARLINE Social History Tobacco Use Types Packs/Day Years [...] 10:00 AM EDT Office [place] [address] Deborah Richardson APRN documented as of this encounter Visit Diagnoses Not on filedocumented in this encounter Care Teams Pool Player Relationship Specialty Start Date End Date Christel Arndt [address] [place] [address] PCP - General Family Medicine 06/28/22 documented as of this encounter
--- OUTSIDE RECORDS SUMMARY | 2023-09-08 13:47 | XMS_ITS | Encounter Summary ---
Author Organization [facility] Address [address] [place] [address] Care Team Providers Care Glue Spreading Machine Operator Name Role Phone Kaylene Pinedo MD Primary Care Provider [phone] Reason for Visit * Reason Comments Follow-up Encounter Details Date Type Department Care Team ([facility] st Contact Info) Description 11/06/2017 11:30 EDT Office Visit [facility] Nephrology - [address] [address] Deangelo Cheek MD Nurse, Renal, Chronic kidney disease, stage III (moderate) ([facility]) (Primary Dx) Social History Tobacco Use Types Packs/Day Years Used Date Smoking Tobacco: Never Smokeless Tobacco: Never Sex and Gender Information Value Date Recorded Sex Assigned at Not on file Gender Identity Not on file Sexual Orientation Not on file documented as of this encounter Last Filed Vital Signs Vital Sign Reading Time Taken Comments Blood Pressure 139/69 11/06/2017 1155 EDT Pulse 63 11/06/2017 1155 EDT Temperature - - Respiratory Rate - - Oxygen Saturation - - Inhaled Oxygen Concentration - - Weight 70.8 kg (156 lb) 11/06/2017 1155 EDT Height 171.5 cm (5' 7.5) 11/06/2017 1155 EDT Body Mass Index 24.07 11/06/2017 1155 EDT documented in this encounter Functional Status [...] as of this encounter Progress Notes * Agueda Chavez, RN - 11/06/2017 1130 EDT Patient was seen in clinic today to review labs, check for any symptoms or concerns. Labs reviewed: stable see scanned and data entered. She comes today with no renal complaints. Review of CKD and how the lab values change with stressors, hydration etc. She explains that she has just lost her sister to an abd/pelvic/ tumor bleed and her brother, dx with terminal CA has disowned her. She is in the process of getting back to caring to herself. She will try to drink 3 good glasses ofwater daily, this might help keep her bladder dilute. See note below. Pt did complaint of odor in her pelvis area and states that she has post void residual. She might benefit from Urology or ID consult. note to MD's. documented in this encounter Plan of Treatment Not on file documented as of this encounter Visit Diagnoses Diagnosis Chronic kidney disease, stage III (moderate) ([facility])- Primary Chronic kidney disease, Stage III (moderate) documented in this encounter Historical Medications * This list may reflect changes made after this encounter. Medication Sig Dispensed Refills Start Date End Date KRILL OIL ORAL Take by mouth. 10/06/2018 tiotropium (SPIRIVA) 18 mcg inhalation capsule Inhale 18 mcg as directed daily. 10/06/2018 added in this encounter Care Teams Glue Spreading Machine Operator Relationship Specialty Start Date End Date Kaylene Pinedo MD [address] [place] [id number] PCP - General 08/07/16 documented as of this encounter
--- OUTSIDE RECORDS SUMMARY | 2023-09-08 13:47 | XMS_ITS | Encounter Summary ---
Author Organization [facility] [place] [address] Care Team Providers Care Accountant Budget Name Role Phone Christel Arndt Primary Care Provider [phone] Encounter Details Date Type Department Care Team (Late st Contact Info) Description 08/12/2023 Telephone [place] [address] Tosha Leal, ARLINE Social History Tobacco Use [...] 10:00 AM EDT [place] [address] Deborah Richardson APRN documented as of this encounter Visit Diagnoses Not on filedocumented in this encounter Care Teams Accountant Budget Relationship Specialty Start Date End Date Christel Arndt [address] [place] [address] PCP - General Family Medicine 06/28/22 documented as of this encounter
--- OUTSIDE RECORDS SUMMARY | 2023-09-08 13:47 | XMS_ITS | Encounter Summary ---
Author Organization [facility] Address [address] [place] [address] Care Team Providers Care Multi Purpose Machine Operator Name Role Phone Kaylene Pinedo MD Primary Care Provider [phone] Reason for Visit * Reason Comments Chronic Kidney Disease * Consult (Routine) - Closed Specialty Diagnoses / Procedures Referred By [facility] t Referred To Contact Diagnoses Renal disease Kaylene Pinedo MD [address] [place] [address] Deangelo Cheek MD [address] [place] [address] Referral ID Status Reason Start Date Expiration Date Visits Re quested Visits Authorized [id number] Closed 1 1 Encounter Details Date Type Department Care Team ([facility] st Contact Info) Description 11/05/2016 10:00 EDT Office Visit [facility] Nephrology - [address] [phone] Unknown, Provider, Deangelo Cheek MD Chronic kidney disease, stage III (moderate) ([facility]) (Primary Dx) Discharge Disposition: Auto Discharge Social History Tobacco Use Types Packs/Day Years Used Date Smoking Tobacco: Never Smokeless Tobacco: Never Sex and Gender Information Value Date Recorded Sex Assigned at Not on file Gender Identity Not on file Sexual Orientation Not on file documented as of this encounter Last Filed Vital Signs Vital Sign Reading Time Taken Comments Blood Pressure 135/73 11/05/2016 1021 EDT Pulse 67 11/05/2016 1021 EDT Temperature - - Respiratory Rate - - Oxygen Saturation - - Inhaled Oxygen Concentration - - Weight 67.1 kg (148 lb) 11/05/2016 1013 EDT Height 171.5 cm (5' 7.5) 11/05/2016 1013 EDT Body Mass Index 22.84 11/05/2016 1013 EDT documented in this encounter Functional Status [...] Yes 11/05/2016 documented as of this encounter Discharge Diagnoses Diagnosis N18.3 Chronic kidney disease, stage 3 (moderate)-N18.3[ICD-10-CM] documented in this encounter Patient Instructions * Patient Instructions* Deangelo Cheek MD - 11/05/2016 10:00 EDT - Please get labs done today as requested. - We will see you again in 3 months time. documented in this encounter Discharge Disposition Disposition Code Departure Means Destination Auto Discharge documented in this encounter Progress Notes * eDangelo Cheek MD - 11/05/2016 1000 EDT DATE OF SERVICE: 11/05/2016 Chief Complaint Patient presents with ??? Chronic Kidney Disease HISTORY OF PRESENTING ILLNESS: This is a pleasant 61 y.o. year old female who was referred to Nephrology clinic by Kaylene Pinedo for Chronic Kidney disease is currently accompanied by her . She used to follow up with [facility] but wanted to move here now. She was noted to have elevation in her creatinine a decade ago and her GFR was noted to be around 35 - 39ml/min then. She started seeing a cheese grader 6 to 7 yrs ago at [facility]. She saw them a few times but a specific reason was apparently not found. She tells me that her Kidney function remained stable in the past 10 yrs. I reviewed the scanned copies of her prior Nephrology visits (Seen by Renal fellow Dr Aiden Garcia and precepted by Dr Silva at [facility] in April 2012) and a clear etiology was not noted while her urine microscopy was unremarkable then. There was no proteinuria, hematuria or evidence of systemic diseases that may affect her renal function. Her creatinine at that time was 1.24 with a GFR of 45ml/min/1.73m2 and she was advised that they will consider a renal biopsy only if her renal function deteriorates. Blood/Stones/Grit/Gravel/Foam in urine: Not macroscopically. She knew that she had blood in her urine in her tests though. Urinary tract infections/dysuria/Flank pain/Supra pubic discomfort/Fever: None in the past decade. Urinary frequency: Day time- every 90 minutes; Nocturia - once to twice Incontinence/accidents: She leaks on sneezing or laughing. No accidents of wetting herself. She hassome urgency. Bowel habit: Every other day to once every 5 days. She does not take any medications. Fatigue - All the time due to Chronic fatigue syndrome. Nausea/Vomiting - No Appetite/Weight - Good with stable weight. Sleep - Takes Trazadone to help herself but still cant sleep well. Tremor/twitching of muscles/Itching - She has itching mostly in her head/scalp but has no rash. No tremor or twitching of muscles. Chest pain/palpitations/dizziness - No Cough/dyspnea - She has asthma and has cough. No shortness of breath Swelling of lower extremities - No Joint pains/skin rash - Knees, neck, small joints of hands, hips. She had 3 compression fractures in her lumbar spine due to osteopenia. NSAID intake - No. She took Prilosec for 20 yrs at least. She stopped it 6 to 7 yrs ago. Salt intake - No added salt. No past medical history on file. IBS - flare ups recently GERD Intestitial cystitis Depression No past surgical history on file. Lap samuel - 2006 Incisional hernia repair and appendectomy - 2007 Hernia repair with mesh - 2008 Hysterectomy for fibroids in 2009. She says that her ovaries were removed as well. Social History Social History ??? Marital status: Spouse name: N/A ??? Number of children: N/A ??? Years of education: N/A Occupational History ??? Not on file. Social History Main Topics ??? Smoking status: Never Smoker ??? Smokeless tobacco: Never Used ??? Alcohol use Not on file ??? Drug use: Not on file ??? Sexual activity: Not on file Other Topics Concern ??? Not on file Social History Narrative Lives with her . 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 Mostly independent of her ADLs. FAMILY HISTORY: None relevant. Sister was on dialysis after a major heart surgery but has since recovered not needing dialysis. Current Outpatient Prescriptions Medication Sig Dispense Refill ??? acetaminophen (TYLENOL) 650 mg CR tablet Take 1,300 mg by mouth as needed for Pain. ??? B INFANTIS/B ANI/B NGOC/B BIFID (PROBIOTIC 4X ORAL) Take by mouth daily. ??? EPINEPHrine (EPIPEN) 0.3 mg/0.3 mL injection Inject 0.3 mg into the muscle once as needed. ??? estradiol (ESTRACE) 0.01 % (0.1 mg/gram) vaginal cream Place vaginally. 2-3 days in the evening ??? famotidine (PEPCID) 20 mg tablet Take 20 mg by mouth as needed. ??? fexofenadine (RONALD) 180 mg tablet Take 180 mg by mouth daily. ??? fluticasone (FLOVENT) 110 mcg/actuation inhaler Inhale 110 mcg as directed 2 times daily. ??? levalbuterol (XOPENEX HFA) 45 mcg/actuation inhaler Inhale 90 mcg as directed as needed for Wheezing. ??? LEVALBUTEROL HCL INHALATION Inhale as directed as needed. ??? Multivitamins with Minerals tablet tablet Take 1 Tab by mouth daily. ??? omega 4-gxh-bmm-fish oil 120-180-600 mg capsule Take by mouth. ??? traZODone (DESYREL) 50 mg tablet Take 50 mg by mouth at bedtime. ??? UNABLE TO FIND Med Name: Tumeric curcumin ??? VITAMIN B COMPLEX ORAL Take by mouth. ??? VITAMIN D3-VITAMIN K2, MK4, ORAL Take by mouth. No current facility-administered medications for this visit. Allergies Allergen Reactions ??? Dairy [Cheese] ??? Erythromycin Nausea Only ??? Hydrocodone Slowed breathing, heartbeat, nervousness, confusion, lightheadedness, restlessness, headache, general feeling of discomfort/illness ??? Other - See Comments All muscle relaxers, heart rate and breathing declines Most inhalers, causes tremors and light headedness ??? Peanut ??? Penicillins Unknown reaction, was when she was young ??? Percocet [Oxycodone-Acetaminophen] Slowed breathing, heartbeat, nervousness, confusion, lightheadedness, restlessness, headache, general feeling of discomfort/illness ??? Steroid [Corticosteroids (Glucocorticoids)] roid rage ??? Vicodin [Hydrocodone-Acetaminophen] Slowed breathing, heartbeat, nervousness, confusion, lightheadedness, restlessness, headache, general feeling of discomfort/illness REVIEW OF SYSTEMS: 10 point review of systems was negative except as noted above. PHYSICAL EXAM: Vitals: 11/05/16 1013 11/05/16 1021 BP: (!) 144/69 135/73 BP Cuff Location: Right arm Right arm Patient Position: Sitting Sitting BP Cuff Sizes: Adult, regular Adult, regular Pulse: 68 67 Weight: 67.1 kg (148 lb) Height: 171.5 cm (67.5) Body mass index is 22.84 kg/(m^2). General exam: Comfortably sat in a chair with no signs of distress. HEENT: Normocephalic and atraumatic head with equal pupils bilaterally. Normal hearing. Moist mucusmembranes with normal appearance of oropharynx. Neck: Supple with no rise in JVP. No lymphadenopathy Cardiovascular: Normal heart sounds with regular rate and rhythm. No murmurs, rubs or gallops appreciated. Lungs: Clear to auscultation bilaterally with no wheeze or crackles. Able to speak in full sentences with no use of accessory muscles of respiration whilst on room air. Abdomen: Soft, non-distended, non tender and with no organomegaly. Normoactive bowel sounds with noabdominal bruit. Neurology: Grossly intact with no focal motor or sensory deficits. Extremities: Warm with no edema. Skin: No rash or lesions noted in the exposed areas. Temperature and turgor are normal. INVESTIGATIONS: Results for orders placed or performed in visit on 11/05/16 POCT URINE DIPSTICK Result Value Ref Range Color YELLOW Clarity, UA Clear Glucose Neg Neg Bilirubin Neg Neg Ketones Neg Neg Specific Orange 1.010 1.001 - 1.035 Blood Trace (A) Neg pH 6.5 4.6 - 8.0 Protein Neg Neg Urobilinogen 0.2 0.2 - 1.0 E.U./dl Nitrite Neg Neg Leuk Esterase Neg Neg Tech ID [id number] Urine microscopy done on the sediment of a spun sample has revealed occasional squamous epithelial cells. There are no casts, crystals or other cells of significance. No red cells were seen although the dip stick analysis showed trace amount of blood. HEMATOLOGY: No results found for: HGB, MCV, IRON, TIBC, FERRITIN, LABIRON RENAL: No results found for: CREATININE, CALCGFR, CALCGFREXT, BUN, NA, K, CL, CO2 METABOLIC: No results found for: CALCIUM, CALCCA, PHOS, PTH, URICACID, HGBA1C Patient Active Problem List Diagnosis Date Noted ??? Lumbar facet arthropathy 08/07/2016 Priority: Medium ??? Closed compression fracture of lumbar vertebra 08/07/2016 Priority: Medium ??? Osteopenia 08/07/2016 Priority: Medium ASSESSMENT: Chronic Kidney disease Stage 3A/A1: The etiology of her CKD is unclear although she does not appearto have any active intra renal process currently because of absence of blood, protein or leucocytesin her urine. A stable creatinine for the past few years also suggests the same. Hence she is at a low risk for progression of her CKD. It is possible that she had renal damage earlier and currently she has no further ongoing renal damage. I explained her that a renal biopsy might give us an answeras to what the etiology might be although the current management of her kidney disease would not change and the renal function she lost several years ago could not be reversed while the risks of renal biopsy still exist. Hence I advised against a renal biopsy for now. She took Prilosec for nearly 20 yrs and has stopped taking it 6 to 7yrs ago. While there is association noted between CKD and PPI use, it is not possible to definitively associate her renal dysfunction with PPI use. Based on the last available labs, she appears to have no electrolyte or acid base issues. She does not appear hypervolemic clinically. She has no anemia associated with her CKD. Her intact PTH measured in June 2016 was normal at 38pg/mL. Hypertension: She denies a diagnosis of Hypertension in the past although I noted it in her problemlist from prior Nephrology visits at [facility]. Her BP today in the clinic is within acceptable range when repeated as noted above. She is currently not on any antihypertensive medications. PLAN: - She was arranged to have CBC and Renal panel after her clinic visit. FOLLOW UP: 3 Months Deangelo Cheek MD Nephrology Labs done after her clinic visit were reviewed and they showed a Creatinine of 1.2mg/dL (similar range to what was noted in 2013 at least) giving her an estimated GFR of 50ml/min/1.73m2. Her urine albumin creatinine ratio was normal at 12.5. Her electrolytes and acid base balance are within normal limits. She has no anemia associated with her Chronic Kidney disease. I hence do not feel the need for scanning her kidneys. I will also change her follow up to 1 year now that her renal function was noted to have been stable for a few years. I left a voice message on her home telephone about the same. Results for RUTHANN WOLF ( ) as of 11/06/2016 14:35 11/05/2016 11:33 Sodium 141 Potassium 4.2 CO2 23 Chloride 107 BUN 23 Creatinine 1.19 (H) GFR, Calculated 50 (L) Calcium 9.7 Calculated Calcium 9.5 Phosphorus 3.8 Albumin 4.3 WBC 5.56 RBC 4.40 Hemoglobin 13.0 HCT 38.3 MCV 87 MCH 29.5 MCHC 33.9 RDW-CV 12.9 RDW-SD 41.1 PLT 205 MPV 12.4 Deangelo Cheek MD Nephrology. documented in this encounter Plan of Treatment Not on file documented as of this encounter Procedures Procedure Name Priority Date/Time Associated Diagnosis Comments POCT URINE DIPSTICK, CLINITEK Routine 11/05/2016 11:19 EDT Chronic kidney disease, stage III (moderate) ([facility]) URINE [id number] NE RATIO (ACR) Routine 11/05/2016 11:08 EDT Chronic kidney disease, stage III (moderate) ([facility]) documented in this encounter Results * (ABNORMAL) NEPHROLOGY PROFILE (INCLUDES BUN, CREATININE, CALCULATED GFR, ELECTROLYTES, CALCIUM, PHOSPHORUS, ALBUMIN) (11/05/2016 11:33 EDT) Sodium 141 136 - 145 mEq/L 11/05/2016 13:27 [facility] Potassium 4.2 3.5 - 5.0 mEq/L 11/05/2016 13:27 [facility] Chloride 107 96 - 110 mEq/L 11/05/2016 13:27 [facility] CO2 23 22 - 32 mEq/L 11/05/2016 13:27 [facility] BUN 23 10 - 26 mg/dl 11/05/2016 13:27 [facility] Creatinine 1.19(H) 0.52 - 1.04 mg/dl 11/05/2016 13:27 [facility] GFR, Calculated 50(L) >60 ml/min/1.7 3m2 11/05/2016 13:27 [facility] Comment: eGFR calculated using CKD-EPI equation for non Americans. Multiply eGFR by 1.16 for Americans. Calcium 9.7 8.5 - 10.5 mg/dl 11/05/2016 13:27 [facility] Calculated Calcium 9.5 8.5 - 10.5 mg/dl 11/05/2016 13:27 [facility] Phosphorus 3.8 2.5 - 4.5 mg/dl 11/05/2016 13:27 [facility] Albumin 4.3 3.4 - 4.9 g/dl 11/05/2016 13:27 [facility] Blood specimen (specimen) BLOOD SPECIMEN / Unknown 11/05/2016 11:33 EDT 11/05/2016 12:37 EDT Deangelo Cheek MD PACK AGES & DNA PROBE ORDERABLES [facility] [address] [place] [address] * HEMAGRAM (11/05/2016 11:33 EDT) WBC 5.56 4.0 - 12.4 K/cmm 11/05/2016 12:58 T [facility] RBC 4.40 3.86 - 5.04 M/cmm 11/05/2016 12:58 [facility] Hemoglobin 13.0 11.6 - 15.2 gm/dl 11/05/2016 12:58 [facility] HCT 38.3 34.9 - 44.4 % 11/05/2016 12:58 [facility] MCV 87 81 - 98 fl 11/05/2016 12:58 [facility] MCH 29.5 26.7 - 33.3 pg 11/05/2016 12:58 [facility] MCHC 33.9 32.1 - 35.9 gm/dl 11/05/2016 12:58 [facility] RDW-CV 12.9 <14.7 % 11/05/2016 12:58 [facility] RDW-SD 41.1 <50.4 fl 11/05/2016 12:58 [facility] PLT 205 141 - 377 K/cmm 11/05/2016 12:58 [facility] MPV 12.4 9.5 - 12.7 fl 11/05/2016 12:58 [facility] Blood specimen (specimen) BLOOD SPECIMEN / Unknown 11/05/2016 11:33 EDT 11/05/2016 12:37 EDT Deangelo Cheek MD MELI TOLOGY & PF4 ORDERABLES [facility] [address] [place] [address] * (ABNORMAL) POCT URINE DIPSTICK (11/05/2016 11:19 EDT) Color YELLOW 11/05/2016 11:17 EDT [facility] Clarity, UA Clear 11/05/2016 11:17 T [facility] Glucose Neg Neg 11/05/2016 11:17 [facility] Bilirubin Neg Neg 11/05/2016 11:17 T [facility] Ketones Neg Neg 11/05/2016 11:17 [facility] Specific Orange 1.010 1.001 - 1.035 11/05/2016 11:17 [facility] Blood Trace(A) Neg 11/05/2016 11:17 [facility] pH 6.5 4.6 - 8.0 11/05/2016 11:17 [facility] Protein Neg Neg 11/05/2016 11:17 [facility] Urobilinogen 0.2 0.2 - 1.0 E.U./dl 11/05/2016 11:17 [facility] Nitrite Neg Neg 11/05/2016 11:17 [facility] Leuk Esterase Neg Neg 11/05/2016 11:17 [facility] websphere developer ID [id number] 11/05/2016 11:17 [facility] Comment:Test Performed at [facility] Urine specimen (specimen) URINE / Unknown 11/05/2016 11:19 EDT 11/05/2016 11:17 EDT Deangelo Cheek MD POIN T OF CARE TEST ORDERABLES [facility] [address] [place] [address] * ALBUMIN, URINE (11/05/2016 11:08 EDT) Creatinine, Urn [place] 32.0 mg/dl 11/06/2016 8:53 T [facility] Ur Albumin mg/dl 0.4 mg/dl 11/06/2016 10:38 [facility] Ur Alb ug/mg Crea 12.5 ug/mg Crea 11/06/2016 10:38 T [facility] Comment: Normal: <30 ug/mg creat High albuminuria: 30-300 ug/mg creat Very high albuminuria: >300 ug/mg creat Urine specimen (specimen) URINE / Unknown 11/05/2016 11:08 EDT 11/05/2016 14:57 EDT Deangelo Kayce Cheek MD CHEM ISTRY & BLOOD GAS ORDERABLES [facility] [address] [place] [address] documented in this encounter Visit Diagnoses Diagnosis Chronic kidney disease, stage III (moderate) ([facility])- Primary Chronic kidney disease, Stage III (moderate) documented in this encounter Historical Medications * This list may reflect changes made after this encounter. Medication Sig Dispensed Refills Start Date End Date levalbuterol (XOPENEX HFA) 45 mcg/actuation inhaler Inhale 90 mcg as directed as needed for Wheezing. estradiol (ESTRACE) 0.01 % (0.1 mg/gram) vaginal cream Place vaginally. 2-3 days in the evening VITAMIN B COMPLEX ORAL Take by mouth. famotidine (PEPCID) 20 mg tablet Take 20 mg by mouth as needed. 10/06/2018 acetaminophen (TYLENOL) 650 mg CR tablet Take 1,300 mg by mouth as needed for Pain. 10/06/2018 added in this encounter Care Teams Multi Purpose Machine Operator Relationship Specialty Start Date End Date Kaylene Pinedo MD [address] [place] [address] PCP - General 08/07/16 documented as of this encounter
--- OUTSIDE RECORDS SUMMARY | 2023-09-08 13:47 | XMS_ITS | Encounter Summary ---
Author Organization [facility] [place] [address] Care Team Providers Care Manager Cargo Name Role Phone Christel Arndt Primary Care Provider Encounter Details Date Type Department Care Team (Late st Contact Info) Description 08/22/2023 Telephone [place]phrology [place] [address] Kwame Day MD [facility] [place] [address] Social History Tobacco Use Types Packs/Day Years [...] Telephone Encounter - Kwame Day MD - 08/22/2023 1:20 PM EDT Talked to Ruthann Reji Guido She continues to have generalized pain and severe fatigue. TSH, vit D normal previously Advised her to discuss with her PCP regarding possibility of fibromyalgia, that she had been diagnosed with it about a decade earlie and then she got better. documented in this encounter Plan of Treatment Upcoming Encounters Date Type Department Care Team (Late st Contact Info) Description 11/05/2023 10:00 AM EDT [place] [address] Deborah Richardson APRN documented as of this encounter Visit Diagnoses Not on filedocumented in this encounter Care Teams Manager Cargo Relationship Specialty Start Date End Date Christel Arndt [address] [place] [address] PCP - General Family Medicine 06/28/22 documented as of this encounter
--- OUTSIDE RECORDS SUMMARY | 2023-09-08 13:47 | XMS_ITS | Encounter Summary ---
Author Organization [facility] Address [address] [place] [address] Care Team Providers Care Temper Mill Operator Name Role Phone Marianna Garcia MD Primary Care Provider [phone] Encounter Details Date Type Department Care Team (Late st Contact Info) Description 05/15/2004 Results Only [facility] [address] [place] [address] Lydia Aguilar, [facility] [address] [place], [place] [address] Social History Tobacco Use Types Packs/Day Years Used Date Smoking Tobacco: Never Assessed Sex and Gender Information Value Date Recorded Sex Assigned at Not on file Gender Identity Not on file Sexual Orientation Not on file documented as of this encounter Plan of Treatment Not on file documented as of this encounter Procedures Procedure Name Priority Date/Time Associated Diagnosis Comments CYTOPATHOLOGY Routine 05/15/2004 0:00 EST documented in this encounter Results * CYTOPATHOLOGY (05/15/2004 0:00 EST) Pathology Report: CYTOPATHOLOGY REPORT Reports generated via electronic interface contain original data; however they are lacking the format of the original report. Caution should be taken when reading/interpreti ng unformatted reports. Name: ? RUTHANN WOLF ? Accession #: ? [id number] : ? 1955 (Age: 49) ??F ?Collect Date: ? 05/15/2004 Location: ? [facility] ? Receive Date: ? 05/17/2004 Provider: ?LYDIA AGUILAR RADAR TECHNICIAN Copy to: ? Specimen/Source: ?ThinPrep Pap Test, Cervix/Endocervix Last Menstrual Period: ? 04/28/04 ? SPECIMEN ADEQUACY ? Satisfactory for Evaluation - transformation zone component present GENERAL CATEGORIZATION ? Negative for Intraepithelial Lesion or Malignancy INTERPRETATION ? Fungal organisms present morphologically consistent with Carla species. ? Document reviewed and electronically signed by: ? MINO Greer(ASCP) ? Report Date: ??05/22/2004 09:12 End of Report [facility] 05/15/2004 05/17/2004 Lydia Aguilar NP PATHOLOGY ORDERABLES [facility] [address] [place] [address] documented in this encounter Visit Diagnoses Not on filedocumented in this encounter Care Teams Temper Mill Operator Relationship Specialty Start Date End Date Marianna Garcia MD [facility] [address] [place] [address] PCP - General 09/28/08 08/05/16 documented as of this encounter
--- OUTSIDE RECORDS SUMMARY | 2023-09-08 13:47 | XMS_ITS | Encounter Summary ---
Author Organization [facility] Address [address] [place] [address] Care Team Providers Care Child Adolescent Psychiatrist Name Role Phone Kristen Garcia MD Primary Care Provider [phone] Encounter Details Date Type Department Care Team (Late st Contact Info) Description 05/30/2009 Results Only [facility] - [facility] ([facility]) [address], [place] [address] Alvaro Espinal, [address] [facility] [address] [place], [place] [id number] Social History Tobacco Use Types Packs/Day Years Used Date Smoking Tobacco: Never Assessed Sex and Gender Information Value Date Recorded Sex Assigned at Not on file Gender Identity Not on file Sexual Orientation Not on file documented as of this encounter Plan of Treatment Not on file documented as of this encounter Procedures Procedure Name Priority Date/Time Associated Diagnosis Comments SURGICAL PATHOLOGY Routine 05/30/2009 0:00 EDT documented in this encounter Results * SURGICAL PATHOLOGY (05/30/2009 0:00 EDT) Pathology Report: SURGICAL PATHOLOGY REPORT ? Reports generated via electronic interface contain original data; ? however they are lacking the format of the original report. ? Caution should be taken when reading/interpreti ng unformatted reports. ? Name: ? AUGUSTIN, RUTHANN J ? Accession #: ? [id number] ? : ? 1955 (Age: 54) ??F ? Collect Date: ? 05/30/2009 ? Location: ? [facility] ? Receive Date: ? 05/30/2009 ? Provider: ALVARO ESPINAL DO ? Copy to: KRISTEN READY MD ? Final Pathologic Diagnosis: ? A. ?Duodenum, biopsies: ? 1. ?Duodenal mucosa with no pathologic features. ? B. ?Stomach, biopsies: ? 1. ?Antral and oxyntic-type mucosa with chronic gastritis. ? C. ?Stomach, biopsies: ? 1. ?Oxyntic-type mucosa with no pathologic features. ? D. ?Esophagus, distal, biopsies: ? 1. ?Squamous and glandular mucosa with chronic inflammation and reactive epithelial changes. ? 2. ? No intestinal metaplasia. ? 3. ? No dysplasia identified. ? E. ?Esophagus, mid, biopsies: ? 1. ?Squamous mucosa with reactive epithelial changes. ??See comment. ? F. ?? Esophagus, proximal, biopsies: ? 1. ?? Squamous mucosa with no pathologic features. ? Comment: ? The severity of the reactive changes in the esophagus decreases in the more proximal specimen. ??Although there is not significant inflammation, these ? changes are suggestive of reflux esophagitis. ??(Dr. Cuellar)/[facility] ? Document reviewed and electronically signed by: ? ROGE NICOLE MD ? Report ??Date: 06/02/2009 15:06 ? By the signature above, the attending physician certifies that he/she has ? personally conducted a gross and/or microscopic examination of the described ? specimens and rendered or confirmed the above diagnosis. ? Specimen(s) Received: ? A. ?Bx duodenum ? B. ? Bx antrum ? C. ? Bx body of stomach ? D. ? Bx distal esophagus ? E. ? Bx mid esophagus ? F. ? Bx proximal esophagus ? Clinical History: ? GERD ? Gross Description: ? Received in [employer] fixative labelled Tidyman, Ruthann and biopsy ? duodenum are two pink-king, irregular soft tissues, each 0.3 x 0.2 x 0.2 cm, ? submitted in toto as (A). ? Received in [employer] fixative labelled Tidyman, Ruthann and biopsy antrum ?? are two pink-king, irregular soft tissues, 0.4 x 0.2 x 0.1 cm and 0.4 x 0.3 x 0.1 cm, submitted in toto as (B). ? Received in [employer] fixative labelled Tidyman, Ruthann and biopsy body of ?? stomach are two pink-king, irregular soft tissues, 0.3 x 0.2 x 0.1 cm and 0.4 x 0.3 x 0.1 cm, submitted in toto as (C). ? Received in [employer] fixative labelled Tidyman, Ruthann and biopsy distal ?? esophagus are three pink-king, irregular soft tissues ranging from 0.2 x 0.2 x ?? 0.1 cm to 0.5 x 0.2 x 0.1 cm, submitted in toto as (D). ? Received in [employer] fixative labelled Tidyman, Ruthann and biopsy mid ? esophagus are two pink-king, irregular soft tissues, 0.3 x 0.2 x 0.1 cm and 0.6 x 0.2 x 0.1 cm, submitted in toto as (E). ? Received in [employer] fixative labelled Tidyman, Ruthann and biopsy proximal esophagus are two pink-king, irregular soft tissues, 0.3 x 0.2 x 0.1 cm and 0.5 x 0.2 x 0.1 cm, submitted in toto as (F). (Manpreet Mojica)/[facility] ? End of Report ? [facility] 05/30/2009 05/30/2009 20: 32 EDT Alvaro Espinal DO PATHOLOGY ORDER NADER [facility] [address] [place] [address] documented in this encounter Visit Diagnoses Not on filedocumented in this encounter Care Teams Child Adolescent Psychiatrist Relationship Specialty Start Date End Date Kristen Garcia MD [facility] [address] [place] [address] PCP - General 09/28/08 08/05/16 documented as of this encounter
--- OUTSIDE RECORDS SUMMARY | 2023-09-08 13:47 | XMS_ITS | Encounter Summary ---
Author Organization [facility] Address [address] [place] [address] Care Team Providers Care Fairground Operator Name Role Phone Kaylene Pinedo MD Primary Care Provider [phone] Encounter Details Date Type Department Care Team (Late st Contact Info) Description 11/05/2016 Phlebotomy Only [facility] - [address] [address] Outcomes Analyst, Outpatient Chronic kidney disease, stage III (moderate) ([facility]) (Primary Dx) Social History Tobacco Use Types [...] Procedure Name Priority Date/Time Associated Diagnosis Comments NEPHROLOGY PROFILE (INCLUDES BUN, CREATININE, CALCULATED GFR, ELECTROLYTES, CALCIUM, PHOSPHORUS, ALBUMIN) Routine 11/05/2016 11:33 EDT Chronic kidney disease, stage III (moderate) (HCC-CMS) COMPLETE BLOOD COUNT Routine 11/05/2016 11:33 EDT Chronic kidney disease, stage III (moderate) ([facility]) documented in this encounter Results * (ABNORMAL) NEPHROLOGY PROFILE (INCLUDES BUN, CREATININE, CALCULATED GFR, ELECTROLYTES, CALCIUM, PHOSPHORUS, ALBUMIN) (11/05/2016 11:33 EDT) Sodium 141 136 - 145 mEq/L 11/05/2016 13:27 [facility] Potassium 4.2 3.5 - 5.0 mEq/L 11/05/2016 13:27 [facility] Chloride 107 96 - 110 mEq/L 11/05/2016 13:27 [facility] CO2 23 22 - 32 mEq/L 11/05/2016 13:27 [facility] BUN 23 10 - 26 mg/dl 11/05/2016 13:27 [facility] Creatinine 1.19(H) 0.52 - 1.04 mg/dl 11/05/2016 13:27 [facility] GFR, Calculated 50(L) >60 ml/min/1.7 3m2 11/05/2016 13:27 [facility] Comment: eGFR calculated using CKD-EPI equation for non Americans. Multiply eGFR by 1.16 for Americans. Calcium 9.7 8.5 - 10.5 mg/dl 11/05/2016 13:27 [facility] Calculated Calcium 9.5 8.5 - 10.5 mg/dl 11/05/2016 13:27 [facility] Phosphorus 3.8 2.5 - 4.5 mg/dl 11/05/2016 13:27 [facility] Albumin 4.3 3.4 - 4.9 g/dl 11/05/2016 13:27 [facility] Blood specimen (specimen) BLOOD SPECIMEN / Unknown 11/05/2016 11:33 EDT 11/05/2016 12:37 EDT Deangelo Cheek MD PACK AGES & DNA PROBE ORDERABLES [facility] [address] [place] [address] * HEMAGRAM (11/05/2016 11:33 EDT) WBC 5.56 4.0 - 12.4 K/cmm 11/05/2016 12:58 EDT [facility] RBC 4.40 3.86 - 5.04 M/cmm 11/05/2016 12:58 EDT [facility] Hemoglobin 13.0 11.6 - 15.2 gm/dl 11/05/2016 12:58 EDT [facility] HCT 38.3 34.9 - 44.4 % 11/05/2016 12:58 EDT [facility] MCV 87 81 - 98 fl 11/05/2016 12:58 EDT [facility] MCH 29.5 26.7 - 33.3 pg 11/05/2016 12:58 EDT [facility] MCHC 33.9 32.1 - 35.9 gm/dl 11/05/2016 12:58 EDT [facility] RDW-CV 12.9 <14.7 % 11/05/2016 12:58 EDT [facility] RDW-SD 41.1 <50.4 fl 11/05/2016 12:58 EDT [facility] PLT 205 141 - 377 K/cmm 11/05/2016 12:58 EDT [facility] MPV 12.4 9.5 - 12.7 fl 11/05/2016 12:58 EDT [facility] Blood specimen (specimen) BLOOD SPECIMEN / Unknown 11/05/2016 11:33 EDT 11/05/2016 12:37 EDT Deangelo Cheek MD MELI TOLOGY & PF4 ORDERABLES [facility] [address] [place] [address] documented in this encounter Visit Diagnoses Diagnosis Chronic kidney disease, stage III (moderate) ([facility])- Primary Chronic kidney disease, Stage III (moderate) documented in this encounter Care Teams Fairground Operator Relationship Specialty Start Date End Date Kaylene Pinedo MD [address] [place] [address] PCP - General 08/07/16 documented as of this encounter
--- OUTSIDE RECORDS SUMMARY | 2023-09-08 13:47 | XMS_ITS | Encounter Summary ---
Author Organization [facility] Address [address] [place] [address] Care Team Providers Care Wax Pattern Repairer Name Role Phone Marianna Garcia MD Primary Care Provider [phone] Encounter Details Date Type Department Care Team (Late st Contact Info) Description 10/14/2005 Results Only [facility] - [facility] conversion [address] [place] [address] Katy Ovalles PA-C [address] [place] [address] Social History Tobacco Use Types Packs/Day Years Used Date Smoking Tobacco: Never Assessed Sex and Gender Information Value Date Recorded Sex Assigned at Not on file Gender Identity Not on file Sexual Orientation Not on file documented as of this encounter Plan of Treatment Not on file documented as of this encounter Procedures Procedure Name Priority Date/Time Associated Diagnosis Comments HPV DETECTION, HIGH RISK TYPES Routine 10/14/2005 14:39 EDT CYTOPATHOLOGY Routine 10/14/2005 0:00 EDT documented in this encounter Results * HUMAN PAPILLOMA VIRUS DNA TEST (10/14/2005 14:39 EDT) Specimen Description Cervix, ThinPrep vial [facility] Result Negative for HPV types 16, 18, 31, 33, 35, 39, 45, 51, 52, 56, 58, 59, and 68. [facility] Report Status Final [id number] [facility] 10/14/2005 14:3 9 EDT 10/23/2005 14:39 EDT Katy Ovalles PA-C MICROBIOLOGY - G ENERAL ORDERABLES [facility] [address] [place] [address] * CYTOPATHOLOGY (10/14/2005 0:00 EDT) Pathology Report: CYTOPATHOLOGY REPORT Reports generated via electronic interface contain original data; however they are lacking the format of the original report. Caution should be taken when reading/interpreti ng unformatted reports. Name: ? RUTHANN WOLF ? Accession #: ? [id number] : ? 1955 (Age: 50) ??F ?Collect Date: ? 10/14/2005 Location: ? [facility] ? Receive Date: ? 10/16/2005 Provider: ?KATY CLEMONS Copy to: ? [facility] ?[address] ?[place], [place] [address] ? Specimen/Source: ?ThinPrep Pap Test, Cervix/Endocervix, processed on Parchment ThinPrep Imaging System, with manual evaluation Last Menstrual Period: ? 09/28/05 Previous Gynecologic Pathology: ? Yes: H/O abn x 2 Other: ? HPVA - HPV testing requested if ASC-US on the current ThinPrep Pap test. ? SPECIMEN ADEQUACY ? Satisfactory for Evaluation - transformation zone component present GENERAL CATEGORIZATION ? Epithelial Cell Abnormality INTERPRETATION ? Squamous Cell Abnormality - Atypical squamous cells, undetermined significance. Fungal organisms present morphologically consistent with Carla species. EDUCATIONAL NOTES/RECOMMENDATI ONS ? [facility] recommends following the 2001 Consensus Guidelines for the Management of Women with Cervical Cytological Abnormalities (DAMARI,2002;287:212 0-9). Management algorithms have been distributed by [facility] and are available online at www.ASCCP.org. ? Document reviewed and electronically signed by: ? ERIC ANDERSON MD [facility] ? Report Date: ??10/22/2005 18:37 End of Report [facility] 10/14/2005 10/16/2005 Katy Ovalles PA-C PATHOLOGY ORDERStephanie YODER [facility] [address] [place] [address] documented in this encounter Visit Diagnoses Not on filedocumented in this encounter Care Teams Wax Pattern Repairer Relationship Specialty Start Date End Date Marianna Garcia MD [facility] [address] [place] [address] PCP - General 09/28/08 08/05/16 documented as of this encounter
--- OUTSIDE RECORDS SUMMARY | 2023-09-08 13:47 | XMS_ITS | Encounter Summary ---
Author Organization [facility] [place] [address] Care Team Providers Care Shipping Receiving Manager Name Role Phone Christel Arndt Primary Care Provider [phone] Encounter Details Date Type Department Care Team (Latest Contact Info) Description 12/25/2022 Travel Social History Tobacco Use Types Packs/Day [...] 10:00 AM EDT Office [place] [address] Deborah Richardson APRN documented as of this encounter Visit Diagnoses Not on filedocumented in this encounter Care Teams Shipping Receiving Manager Relationship Specialty Start Date End Date Christel Arndt [address] [place] [address] PCP - General Family Medicine 06/28/22 documented as of this encounter
--- OUTSIDE RECORDS SUMMARY | 2023-09-08 13:47 | XMS_ITS | Encounter Summary ---
Author Organization [facility] Address [address] [place] [address] Care Team Providers Care Client Renewal Specialist Name Role Phone Marianna Garcia MD Primary Care Provider [phone] Encounter Details Date Type Department Care Team (Late st Contact Info) Description 03/26/2002 Results Only [facility] - Maple conversion [address] [place] [address] Mell Soto, PSYCHIATRIC NP [address] [id number] Social History Tobacco Use Types Packs/Day Years Used Date Smoking Tobacco: Never Assessed Sex and Gender Information Value Date Recorded Sex Assigned at Not on file Gender Identity Not on file Sexual Orientation Not on file documented as of this encounter Plan of Treatment Not on file documented as of this encounter Procedures Procedure Name Priority Date/Time Associated Diagnosis Comments CYTOPATHOLOGY Routine 03/26/2002 0:00 EST documented in this encounter Results * CYTOPATHOLOGY (03/26/2002 0:00 EST) Pathology Report: CYTOPATHOLOGY REPORT Reports generated via electronic interface contain original data; however they are lacking the format of the original report. Caution should be taken when reading/interpreti ng unformatted reports. Name: ? RUTHANN WOLF ? Accession #: ? [id number] : ? 1955 (Age: 47) ??F ?Collect Date: ? 03/26/2002 Location: ? [facility] ? Receive Date: ? 03/30/2002 Provider: ?MELL SOTO NP Copy to: ? Specimen/Source: ?ThinPrep Pap Test, Cervix/Endocervix Last Menstrual Period: ? 03/06/02 Other: ? DHPV - HPV testing requested if ASCUS/YENY on the current ThinPrep Pap test. ? SPECIMEN ADEQUACY ? Satisfactory for Evaluation - transformation zone component present GENERAL CATEGORIZATION ? Negative for Intraepithelial Lesion or Malignancy ? Document reviewed and electronically signed by: ? ROSA Ryan(ASCP) ? Report Date: ??04/01/2002 08:32 End of Report [facility] 03/26/2002 03/30/2002 Mell Soto NP PATHOLOGY ORDERABLES [facility] [address] [place] [address] documented in this encounter Visit Diagnoses Not on filedocumented in this encounter Care Teams Client Renewal Specialist Relationship Specialty Start Date End Date Marianna Garcia MD [facility] [address] [place] [address] PCP - General 09/28/08 08/05/16 documented as of this encounter
--- OUTSIDE RECORDS SUMMARY | 2023-09-08 13:47 | XMS_ITS | Encounter Summary ---
Author Organization [facility] Address [address] [place] [address] Care Team Providers Care Mill Feeder Name Role Phone Unavailable Primary Care Provider Unavailabl e Encounter Details Date Type Department Care Team (Late st Contact Info) Description 09/22/2008 Orders Only [facility] - [facility] ([facility]) [address] [place], [place] [address] Kristen Garcia MD [facility] [address] [place], [place] [address] Social History Tobacco Use Types Packs/Day Years [...] Comments HPV DETECTION, HIGH RISK TYPES Routine 09/22/2008 15:20 EDT CYTOPATHOLOGY Routine 09/22/2008 0:00 EDT documented in this encounter Results * HUMAN PAPILLOMA VIRUS DNA TEST (09/22/2008 15:20 EDT) Specimen Description Cervix, ThinPrep vial [facility] Result Positive for one or more of HPV types 16,18,31,33,35 ,39,45,51,52,5 6,58,59, or 68. These high/intermedi ate risk HPV types are associated with dysplasia and some cervical cancers. [facility] Report Status Final 10/05/2008 [facility] 09/22/2008 15:2 0 EDT 09/29/2008 11:16 EDT Kristen Garcia MD MICROBIOLOGY - GENER AL ORDERABLES [facility] [address] [place] [address] * CYTOPATHOLOGY (09/22/2008 0:00 EDT) Pathology Report: CYTOPATHOLOGY REPORT ? Reports generated via electronic interface contain original data; ? however they are lacking the format of the original report. ? Caution should be taken when reading/interpreti ng unformatted reports. ? Name: ? RUTHANN NICOLE ? Accession #: ? [id number] ? : ? 1955 (Age: 53) ??F ?Collect Date: ? 09/22/2008 ? Location: ? [facility] ? Receive Date: ? 09/23/2008 ? Provider: ?KRISTEN READY MD ? Copy to: ? Specimen/Source: ?Pap Test, Cervix/Endocervix, ThinPrep Imaging System ? with manual evaluation ? Last Menstrual Period: ? Previous Gynecologic Pathology: ? Yes: 2006 sq. cell atypical undermine significance hx. 2 other abnormals, ? repeats normal, 4/28/08 endometrial cells present in a women to or greater than age 40 ? Other: ? HPVDX - HPV testing requested regardless of diagnosis on current ThinPrep Pap ?? test. ? SPECIMEN ADEQUACY ? Satisfactory for Evaluation ? - transformation zone component present ? GENERAL CATEGORIZATION ? Epithelial Cell Abnormality ? INTERPRETATION ? Squamous Cell Abnormality - Low grade squamous intraepithelial lesion ? (LSIL). ? EDUCATIONAL NOTES/RECOMMENDATI ONS ? [facility] recommends following the 2006 Consensus Guidelines for the Management of Women with Abnormal Cervical Cancer Screening Tests (JLGTD, ? 2007;11(4:201-222 ). ??Consensus guidelines are available online at ? www.ASCCP.org. ? Document reviewed and electronically signed by: ? Ruthann George, ? Report Date: ??09/28/2008 08:18 ? End of Report ? [facility] 09/22/2008 09/23/2008 Kristen Ready MD PATHOLOGY ORDERABLES [facility] [address] [place] [address] documented in this encounter Visit Diagnoses Not on filedocumented in this encounter
--- OUTSIDE RECORDS SUMMARY | 2023-09-08 13:47 | XMS_ITS | Encounter Summary ---
Author Organization [facility] [place] [address] Care Team Providers Care Copywriting Intern Name Role Phone Christel Arndt Primary Care Provider Encounter Details Date Type Department Care Team (Late st Contact Info) Description 08/18/2023 Telephone Nephrology [place] [address] Kwame Day MD [facility] [address] NEPHROLOGY [place] [address] Social History Tobacco Use Types Packs/Day Years [...] Telephone Encounter - Kwame Day MD - 08/18/2023 4:16 PM EDT From Kaylene: Pt called, since she as seen you last she has been having water retention on and off but at least the last month its been more frequent. Can you please call patient to discuss. Called patient- left a voice message to call back when she is available. documented in this encounter Plan of Treatment Upcoming Encounters Date Type Department Care Team (Late st Contact Info) Description 11/05/2023 10:00 AM EDT [place] [address] Deborah Richardson APRN documented as of this encounter Visit Diagnoses Not on filedocumented in this encounter Care Teams Copywriting Intern Relationship Specialty Start Date End Date Christel Arndt [address] [place] [address] PCP - General Family Medicine 06/28/22 documented as of this encounter
--- OUTSIDE RECORDS SUMMARY | 2023-09-08 13:47 | XMS_ITS | Encounter Summary ---
Author Organization [facility] Address [address] [place] [address] Care Team Providers Care Health Professor Name Role Phone Kristen Skelton MD Primary Care Provider [phone] Encounter Details Date Type Department Care Team (Late st Contact Info) Description 06/15/2007 Results Only [facility] - Maple conversion [address] [place] [address] Kristen Skelton MD [facility] [address] [place], [place] [address] Social History Tobacco Use Types Packs/Day Years Used Date Smoking Tobacco: Never Assessed Sex and Gender Information Value Date Recorded Sex Assigned at Not on file Gender Identity Not on file Sexual Orientation Not on file documented as of this encounter Plan of Treatment Not on file documented as of this encounter Procedures Procedure Name Priority Date/Time Associated Diagnosis Comments CYTOPATHOLOGY Routine 06/15/2007 0:00 EDT documented in this encounter Results * CYTOPATHOLOGY (06/15/2007 0:00 EDT) Pathology Report: CYTOPATHOLOGY REPORT Reports generated via electronic interface contain original data; however they are lacking the format of the original report. Caution should be taken when reading/interpreti ng unformatted reports. Name: ? RUTHANN WOLF ? Accession #: ? [id number] : ? 1955 (Age: 52) ??F ?Collect Date: ? 06/15/2007 Location: ? [facility] ? Receive Date: ? 06/16/2007 Provider: ?KRISTEN SKELTON MD Copy to: ? [facility] ?[address] ?[place], [place] [address] ? Specimen/Source: ?ThinPrep Pap Test, Cervix/Endocervix, processed on [email or web address] ThinPrep Imaging System, with manual evaluation Last Menstrual Period: ? current spotting Previous Gynecologic Pathology: ? Yes: Sq cell atypical undetermine significance 2006, hx 2 other abnls, repeats nl ? SPECIMEN ADEQUACY ? Satisfactory for Evaluation - transformation zone component present - scant squamous epithelial component secondary to excessive blood GENERAL CATEGORIZATION ? Other, see interpretation INTERPRETATION ? Reactive cellular changes associated with inflammation present (includes repair). Endometrial cells present in a woman equal to or greater than age 40. Negative for Intraepithelial Lesion. EDUCATIONAL NOTES/RECOMMENDATI ONS ? Benign appearing endometrial [...] and electronically signed by: ? ERIC ANDERSON [facility] ? Report Date: ??06/22/2007 15:37 End of Report [facility] 06/15/2007 06/16/2007 Kristen Skelton MD PATHOLOGY ORDERABLES Performing Organization Address City/State/[facility] Co de Phone Number [facility] [address] [place] [address] documented in this encounter Visit Diagnoses Not on filedocumented in this encounter Care Teams Health Professor Relationship Specialty Start Date End Date Kristen Skelton MD [facility] [address] [place], [place] [id number] PCP - General 09/28/08 08/05/16 documented as of this encounter
--- OUTSIDE RECORDS SUMMARY | 2023-09-08 13:47 | XMS_ITS | Encounter Summary ---
Author Organization [facility] Address [address] [place] [address] Care Team Providers Care Slipcover Cutter Name Role Phone Kristen Skelton MD Primary Care Provider [phone] Encounter Details Date Type Department Care Team (Late st Contact Info) Description 09/09/2006 Results Only [facility] - Maple conversion [address] [place] [address] Alvaro Espinal, DO [address] [facility] [address] [place] [address] Social History Tobacco Use Types Packs/Day Years Used Date Smoking Tobacco: Never Assessed Sex and Gender Information Value Date Recorded Sex Assigned at Not on file Gender Identity Not on file Sexual Orientation Not on file documented as of this encounter Plan of Treatment Not on file documented as of this encounter Procedures Procedure Name Priority Date/Time Associated Diagnosis Comments SURGICAL PATHOLOGY Routine 09/09/2006 0:00 EDT documented in this encounter Results * SURGICAL PATHOLOGY (09/09/2006 0:00 EDT) Pathology Report: SURGICAL PATHOLOGY REPORT Reports generated via electronic interface contain original data; however they are lacking the format of the original report. Caution should be taken when reading/interpreti ng unformatted reports. Name: ? RUTHANN WOLF ? Accession #: ? [id number] ? : ? 1955 (Age: 51) ??F ? Collect Date: ? 09/09/2006 ? Location: ? [facility] ? Receive Date: ? 09/09/2006 ? Provider: ALVARO ESPINAL DO Copy to: KRISTEN SKELTON MD ? Final Pathologic Diagnosis: ? Gallbladder, cholecystectomy: 1. ?No gross or histopathologic abnormalities identified. 2. ? Lymph node with no specific pathologic features. Document reviewed and electronically signed by: Morro Baird MD Report ??Date: 09/16/2006 16:52 By the signature above, the attending physician certifies that he/she has personally conducted a gross and/or microscopic examination of the described specimens and rendered or confirmed the above diagnosis. Specimen(s) Received: ? Gallbladder Clinical History: ? Biliary colic Gross Description: ? Received in formalin labelled Nicole and gallbladder is an 8.3 cm in length by 3.4 cm in diameter intact gallbladder. ??The lumen contains approximately 3 cc of green viscid bile; no choleliths are present. ??The 0.5 cm in length by 0.4 cm in diameter cystic duct is probe patent and a 0.6 cm in greatest dimension periductal node is present. ??The velvety mucosa is bile-stained green and the wall averages 0.1 cm thick. ??A enrollment eligibility representative section of the fundus, body, cystic duct margin (en face) and periductal node is submitted in one cassette. ??(Elijah Ashley)/mpl End of Report [facility] 09/09/2006 09/09/2006 0:4 4 EDT Alvaro Espinal DO PATHOLOGY ORDER [facility] [address] [place] [address] documented in this encounter Visit Diagnoses Not on filedocumented in this encounter Care Teams Slipcover Cutter Relationship Specialty Start Date End Date Kristen Skelton MD [facility] [address] [place], [place] [id number] PCP - General 09/28/08 08/05/16 documented as of this encounter
--- OUTSIDE RECORDS SUMMARY | 2023-09-08 13:47 | XMS_ITS | Encounter Summary ---
Author Organization [facility] Address [address] [place] [address] Care Team Providers Care Palliative Care Nurse Name Role Phone Marianna Garcia MD Primary Care Provider [phone] Encounter Details Date Type Department Care Team (Late st Contact Info) Description 07/24/2006 Results Only [facility] - Maple conversion [address] [place] [address] Wanda Lujan MD [address] [place] [address] [place] [address] Social History Tobacco Use Types Packs/Day Years Used Date Smoking Tobacco: Never Assessed Sex and Gender Information Value Date Recorded Sex Assigned at Not on file Gender Identity Not on file Sexual Orientation Not on file documented as of this encounter Plan of Treatment Not on file documented as of this encounter Procedures Procedure Name Priority Date/Time Associated Diagnosis Comments SURGICAL PATHOLOGY Routine 07/24/2006 0:00 EDT documented in this encounter Results * SURGICAL PATHOLOGY (07/24/2006 0:00 EDT) Pathology Report: SURGICAL PATHOLOGY REPORT Reports generated via electronic interface contain original data; however they are lacking the format of the original report. Caution should be taken when reading/interpreti ng unformatted reports. Name: ? RUTHANN RUFFIN ? Accession #: ? [id number] ? : ? 1955 (Age: 51) ??F ? Collect Date: ? 07/24/2006 ? Location: ? [facility] ? Receive Date: ? 07/24/2006 ? Provider: WANDA LUJAN MD Copy to: ? Final Pathologic Diagnosis: ? Endometrium, biopsy: 1. ?Endocervical polyp with squamous metaplasia and reactive changes. 2. ? Fragments of endocervical/lower uterine segment tissue with tubal metaplasia. 3. ? Proliferative endometrium. 4. ? No hyperplasia identified. ??See comment. Comment: ? Desktop Support Engineer sections have been reviewed by Dr. Niya Lion in consultation. (Dr. Reece)/[facility] Document reviewed and electronically signed by: DELPHINE REECE MD Report ??Date: 07/28/2006 16:22 By the signature above, the attending physician certifies that he/she has personally conducted a gross and/or microscopic examination of the described specimens and rendered or confirmed the above diagnosis. Specimen(s) Received: ? Endomet bx Clinical History: ? AUB Gross Description: ? Received in formalin labelled Nicole and endometrium are 3.5 x 3.5 x 0.5 cm of red-brown predominantly mucoid hemorrhagic tissue fragments. Desktop Support Engineer sections are submitted as (A1) and (A2) following filtration. /trudy End of Report [facility] 07/24/2006 07/24/2006 1:0 7 EDT Wanda Lujan MD PATHOLOGY ORDERABLES Performing Organization Address City/State/[facility] Co de Phone Number [facility] [address] [place] [address] documented in this encounter Visit Diagnoses Not on filedocumented in this encounter Care Teams Palliative Care Nurse Relationship Specialty Start Date End Date Marianna Garcia MD [facility] [address] [place] [address] PCP - General 09/28/08 08/05/16 documented as of this encounter
--- OUTSIDE RECORDS SUMMARY | 2023-09-08 13:47 | XMS_ITS | Encounter Summary ---
Author Organization [facility] Address [address] [place] [address] Care Team Providers Care Aeronautical Project Engineer Name Role Phone Marianna Garcia MD Primary Care Provider [phone] Encounter Details Date Type Department Care Team (Late st Contact Info) Description 02/13/2000 Results Only [facility] - Maple conversion [address] [place] [address] Sylvia Molina MD [address] [place] [phone] Social History Tobacco Use Types Packs/Day Years Used Date Smoking Tobacco: Never Assessed Sex and Gender Information Value Date Recorded Sex Assigned at Not on file Gender Identity Not on file Sexual Orientation Not on file documented as of this encounter Plan of Treatment Not on file documented as of this encounter Procedures Procedure Name Priority Date/Time Associated Diagnosis Comments CYTOPATHOLOGY Routine 02/13/2000 0:00 EST documented in this encounter Results * CYTOPATHOLOGY (02/13/2000 0:00 EST) Pathology Report: CYTOPATHOLOGY REPORT Reports generated via electronic interface contain original data; however they are lacking the format of the original report. Caution should be taken when reading/interpreti ng unformatted reports. Name: ? GERARDOSUSHMA RUTHANN Cody ? Accession #: ? [id number] : ? 1955 (Age: 45) ??F ?Collect Date: ? 02/13/2000 Location: ? [facility] ? Receive Date: ? 02/15/2000 Provider: ?SYLVIA MOLINA [facility] Copy to: ? Specimen/Source: ?Conventional Pap Test, Cervix/Endocervix Last Menstrual Period: ? 01/25/00 ? SPECIMEN ADEQUACY ? Satisfactory for evaluation. GENERAL CATEGORIZATION ? Within Normal Limits ? Document reviewed and electronically signed by: ? MINO Greer(ASCP) ? Report Date: ??02/15/2000 13:17 End of Report [facility] 02/13/2000 02/15/2000 Sylvia Molina MD PATHOLOGY ORDERABLES Performing Organization Address City/State/[facility] Co de Phone Number [facility] [address] [place] [address] documented in this encounter Visit Diagnoses Not on filedocumented in this encounter Care Teams Aeronautical Project Engineer Relationship Specialty Start Date End Date Marianna Garcia MD [facility] [address] [place] [address] PCP - General 09/28/08 08/05/16 documented as of this encounter
--- OUTSIDE RECORDS SUMMARY | 2023-09-08 13:47 | XMS_ITS | Encounter Summary ---
Author Organization [facility] Address [address] [place] [address] Care Team Providers Care Plastic Press Operator Name Role Phone Unknown, Provider Primary Care Provider [phone] Encounter Details Date Type Department Care Team (Late st Contact Info) Description 08/06/2016 Results Only Imaging [facility]- [facility] [phone] Unknown, Provider, Social History Tobacco Use Types Packs/Day Years Used Date Smoking Tobacco: Never Assessed Sex and Gender Information Value Date Recorded Sex Assigned at Not on file Gender Identity Not on file Sexual Orientation Not on file documented as of this encounter Plan of Treatment Pending Results Name Type Priority Associated Diagnoses Date /Time OUTSIDE IMAGES - DEXA BONE SCAN Imaging 08/06/2016 18:24 EDT OUTSIDE IMAGES - OTHER NEURO Imaging 08/06/2016 18:24 EDT documented as of this encounter Visit Diagnoses Not on filedocumented in this encounter Care Teams Plastic Press Operator Relationship Specialty Start Date End Date Unknown, Provider, PCP - General 08/06/16 08/06/16 documented as of this encounter
--- OUTSIDE RECORDS SUMMARY | 2023-09-08 13:47 | XMS_ITS | Encounter Summary ---
Author Organization [facility] [place] [address] Care Team Providers Care Rf Technician Name Role Phone ChuymirandaArya Christel Primary Care Provider Encounter Details Date Type Department Care Team (Late st Contact Info) Description 12/25/2022 9:20 AM EST [place] [address] Deborah Richardson APRN IC (interstitial cystitis); Overactive bladder; Urinary frequency; Mixed stress and urge urinary incontinence Social History Tobacco Use Types Packs/Day Years [...] Sign Reading Time Taken Comments Blood Pressure 110/67 12/25/2022 9:28 AM EST Pulse 87 12/25/2022 9:28 AM EST Temperature - - Respiratory Rate - - Oxygen Saturation - - Inhaled Oxygen Concentration - - Weight - - Height - - Body Mass Index - - documented in this encounter Progress Notes * Deborah Richardson APRN - 12/25/2022 9:20 AM EST [facility] SECTION OF UROLOGY OUT PATIENT FOLLOW UP VISIT History of Present Illness: Ruthann Wolf is an 67 y.o. year old woman here for follow up of OAB w/ EULALIA and Interstitial Cystitis. She has CKD followed by Dr. Day in Nephrology. Urologic history: Seen in~2004. She did have UDS about 5 years earlier (in her paper record most likely) and was dx with IC and stress incontinence at that time. Per my 2005 notes She states that she saw Dr. Irving within the last 5 years and had a cysto with hydrodistention. She thinks she was told she needed a bladder scraping, which she did not want, and opted for no treatment at that time. In 04/2021- she was seen by Dot and started on amitriptyline for her IC and referred to PFPT. In 07/2021, she reported adverse side effects from amitriptyline and had stopped this, she was started on mirabegron at that time. Urine Culture Review: 02/2021: pt saw PCP with oab and foul smelling urine. Her UA was normal. She was given the info on urethritis. She is on estrace. 04/30/2021: 10-49 K e.coli-tx with keflex and 0 wbc/hpf 06/08/2021: neg 07/17/2021: UA for Dr. Day showed 1 rbc/hpf and 0 wbc Today Ruthann presents for routine follow up. She states she has been having increased urinary frequency and urgency. When voiding small volumes. No pelvic pain or dysuria. No gross hematuria. Denies urinary incontinence, occasional leaks with coughing/laughing/sneezing. She is not bothered by ANALI- usually can catch before it happens. She is not currently on any medication for her symptoms. She voids q1-1.5h during the day and wakes 1x per night. She regularly practices double voiding, She does urge suppression all the time. Her last UTI was awhile ago. Her bowels are okay has IBS so irregular more diarrhea lately. Avg Daily Fluid Intake: ~ 48oz water, 1 cup decaf green tea, 1 cup chamomile tea, 1 cup apple cider. PMH: CKD, asthma, central serous chorioretinopathy, GERD, IBS, IC, osteoporosis. Osateoarthritis, compression fx in lumbar spine, plantar fasciitis bilaterally, insomnia, depression, anxiety, chronicfatigue syndrome. Gyne: G 4 P 1 #1 hysterectomy in 2008 for bleeding 3/4 weeks per month-uses estradiol cream 2-3x/week PSHx: cholecystectomy, hernia repair x2, hysterectomy, appendectomy, sinus surgeyr, tonsillectomy & adenoidectomy. Family Hx: dad had bladder cancer in his 80s. Social Hx: lives with son & family, never a smoker, no etoh. 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 Denies changes in appetite or indigestion. : see HPI M/S: Denies weakness or unsteady gait Neuro: Denies headaches, lightheadedness, dizziness OBJECTIVE FINDINGS: Physical Exam: Blood Pressure 110/67 (BP Location (NBP): Right arm, Patient Position: Sitting, BP Cuff Sizes: Adult (25-34 cm)) Pulse 87 Last Menstrual Period (LMP Unknown) GENERAL: Patient is well appearing and is not in acute distress. RESPIRATORY: Breathing comfortably. NEURO: Oriented to Person, place and time. PSYCH: Their mood is appropriate. Pelvic: (04/2021 The external genitalia are normal with normal hair distribution and no lesions. Themeatus is in a normal location with a normal configuration. There is mobility of the bladder neck. The urethra is nontender. There are no urethral masses. The patient does not leak in the supine position with a valsalva and with coughing. There is a Gr. 0 cystocele. There are no pelvic masses. The patient can [place] effectively. The uterus is absent and the adenexa are nonpalpable. The vault is well supported. Normal reported vaginal sensation. Her left pelvic floor is tender, but does not create the bladder pressure or flank pain she feels. ) PVR (with use of bladder ultrasound, by scanner): 113cc 04/2022: 55ml 04/2021: 30-40 cc Urine dipstick positive for + blood. Recent Labs: 06/07/2021: cre 1.38, glucose 117, lytes normal, GFR 41 and LFTs normal on amitriptyline. 07/20/2021: 1.41 and GFR 39 Impression: OAB w/ ANALI History of IC- well controlled with behavioral therapies Intermittent UTIs Plan/Recommendations: Encouraged continued use of behavioral therapies: encouraged timed voiding, double voiding, and bowel moderation. Does well with hydration and limiting bladder iritants. Continue with pelvic floor exercises- does well with urge suppression techniques. Reviewed medication options such as anticholinergics or Beta 3 agonist for urge incontinence to help with OAB sx. She would like to defer medications at this time as she generally does not tolerate medications well. PTNS- defer for now given she is [place] hour [place] a half away. Handout given as she may try to see if offered closer to her. Discussed bladder botox and interstim pros/cons of each- she is not interested in these therapies at this time. UA w/ micro & culture today given blood on dip. Follow up in 1 year or sooner as needed. Patient verbalizes understanding and is agreeable to plan. All questions answered to her apparent satisfaction Deborah Richardson APRN Section of Urology [phone] documented in this encounter Plan of Treatment Upcoming Encounters Date Type Department Care Team (Late st Contact Info) Description 11/05/2023 10:00 AM EDT [place] [address] Deborah Richardson APRN documented as of this encounter Procedures Procedure Name Priority Date/Time Associated Diagnosis Comments HC URINALYSIS ROUTINE Routine 12/25/2022 10:10 AM EST IC (interstitial cystitis) Urinary frequency HC URINE CULTURE Routine 12/25/2022 10:1 0 AM EST IC (interstitial cystitis) Urinary frequency documented in this encounter Results * Urine culture Clean Catch Urine (12/25/2022 10:10 AM EST) Urine Culture 1,000-9,000 cfu/ml Insignificant growth [facility] Clean Catch Urine 12/25/2022 10:10 AM EST 12/25/2022 3:50 PM EST Narrative Resulting Agency Comment Spec In Lab Deborah Richardson APRN MICROBIOLOGY - GENE RAL ORDERABLES Performing Organization Address City/[facility]/ZIP Co de Phone Number [facility] [place] [address] * (ABNORMAL) _Urinalysis with microscopic (12/25/2022 10:10 AM EST) Glucose UA Negative Negative mg/dL [facility] Protein UA Negative Negative mg/dL [facility] Bilirubin UA Negative Negative mg/dL [facility] Comment: Clinical correlation required for positive Urine Bilirubin results as false positive may occur with some drugs and drug related products. If a false positive is suspected a serum total bilirubin should be considered if clinically indicated. Urobilinogen UA Normal Normal mg/dL [facility] pH UA 7.0 5.0 - 8.0 [facility] Blood UA Trace(A) Negative mg/dL [facility] Ketones UA Negative Negative mg/dL [facility] Nitrite UA Negative Negative [facility] Leukocytes UA Negative Negative mcL [facility] Appearance UA Clear Clear [facility] Spec Rawlings UA 1.007 1.005 - 1.030 [facility] Color UA Yellow Yellow [facility] RBC UA 0 0 - 4 /HPF [facility] WBC UA 0 0 - 5 /HPF [facility] Urine 12/25/2022 10:1 0 AM EST 12/25/2022 2:47 PM EST Narrative Resulting Agency Comment Spec In Lab Deborah Richardson APRN URINE ORDERABLES Performing Organization Address [facility]/ZIP Co de Phone Number [facility] [place] [address] documented in this encounter Visit Diagnoses Diagnosis IC (interstitial cystitis) Chronic interstitial cystitis Overactive bladder Hypertonicity of bladder Urinary frequency Mixed stress and urge urinary incontinence Mixed incontinence urge and stress (male)(female) documented in this encounter Care Teams Rf Technician Relationship Specialty Start Date End Date Christel Arndt [address] [place] [address] PCP - General Family Medicine 06/28/22 documented as of this encounter
--- OUTSIDE RECORDS SUMMARY | 2023-09-08 13:47 | XMS_ITS | Encounter Summary ---
Author Organization [facility] Address [address] [place] [address] Care Team Providers Care Sign Maintenance Name Role Phone Kaylene Pinedo MD Primary Care Provider [phone] Reason for Referral * PT/OT/ST (Routine) - New Request Specialty Diagnoses / Procedures Referred By Leidy t Referred To Contact Diagnoses Neck pain Spondylosis of cervical region without myelopathy or radiculopathy Marianna Olson MD [address] [place] [address] Referral ID Status Reason Start Date Expiration Date Visits Requested Visits Authorized [id number] New Request Specialty Services Required 08/27/2017 1 1 Question Answer Reason for Request: cervical spondylosis with post neck pain Comments Cervical isometrics, decrease post neck pain, modalities Periscapular strengthening * Radiology Services (Routine) - New Request Specialty Diagnoses / Procedures Referred By Contac t Referred To Contact Diagnoses Lumbar facet arthropathy Procedures L SPINE 2-3 VIEWS Marianna Olson MD [address] [place] [address] Referral ID Status Reason Start Date Expiration Date V isits Requested Visits Authorized [id number] New Request 08/27/2017 1 1 * Radiology Services (Routine) - New Request Specialty Diagnoses / Procedures Referred By Leidy lemon Referred To Contact Diagnoses Neck pain Procedures CERVICAL SPINE 4 OR MORE VIEWS Marianna Olson MD [address] [place] [phone] Referral ID Status Reason Start Date Expiration Date V isits Requested Visits Authorized [id number] New Request 08/27/2017 1 1 Reason for Visit * Reason Comments Back Pain Encounter Details Date Type Department Care Team (Late st Contact Info) Description 08/27/2017 14:00 EDT Office Visit [facility] - [address] [place] [address] Marianna Olson MD [address] [place] [phone] Lumbar facet arthropathy (HCC-CMS) (Primary Dx); Neck pain; Closed compression fracture of L3 lumbar vertebra with routine healing, subsequent encounter; Spondylosis of cervical region without myelopathy or radiculopathy Discharge Disposition: Auto Discharge Social History Tobacco [...] - - Weight 70.8 kg (156 lb) 08/27/2017 1418 EDT Height - - Body Mass Index 24.07 11/05/2016 1013 EDT documented in this encounter [...] as of this encounter Discharge Diagnoses Diagnosis M54.2 Cervicalgia-M54.2[ICD-10-CM] M48.061 Spinal stenosis, lumbar region without neurogenic annmarie-M48.061[ICD-10-CM] documented in this encounter Discharge Disposition Disposition Code Departure Means Destination Auto Discharge documented in this encounter Progress Notes * Marianna Olson MD - 08/27/2017 1400 EDT This office note has been dictated. * Marianna Olson MD - 08/27/2017 0000 EDT [facility] SPINE PRO[facility] PROGRESS / FOLLOWUP NOTE - 08/27/2017 PROBLEM: 1. Low back pain, chronic. 2. New right-sided neck pain. SUBJECTIVE: Carolina Wolf is a 62-year-old female who I have seen in the past for a lumbar compression fracture. She is coming today for 2 separate issues. 1. Chronic axial low back pain. She describes it worse first thing in the morning. She feels like her back has stiffened up. She denies any paresthesias into the legs. Denies bowel or bladder incontinence or saddle anesthesia. In the past, I have discussed with her moving forward with lumbar facet injections to treat her lumbar spondylosis. She is still considering this option. She has become more concerned that she has suffered a new lumbar compression fracture and is interested in followup radiographs. She also has been experiencing neck pain. It has been episodic in the past, been worse over the past month. She describes it as constant, greater on the right than left. It is made worse by rotation to the right, better with half of Valium at night. To date she has not sought treatment with her primary care physician. PAST MEDICAL HISTORY: Fibromyalgia, chronic fatigue, IBS, interstitial cystitis of the bladder, chronic kidney disease, recent asthma. PRIOR SURGERIES, ALLERGIES, MEDICATIONS: Reviewed in [facility]. ROS: Pertinent positives per HPI, remainder negative. OBJECTIVE: Very pleasant. BMI of 23. Cervical spine she has increased tone in the cervical paraspinal musculature, tenderness on the right. Active range of motion of the cervical spine: Flexion chin to chest pain free, cervical extension painful and limited rotation to the right, 45 degrees, left 70. Strength: Bilateral upper extremities for all major muscle groups 5/5. MSRs symmetric and presentin biceps, triceps, negative Camacho's. DIAGNOSTIC DATA: Lumbar spine examined. There is no bogginess, no step off. She has tenderness throughout the lumbar spine. Negative straight leg raises. Rotary motions of the hips pain free. Strength in lower extremities normal. MSRs 1+ patella, Achilles. Babinski is downgoing. DIAGNOSTIC DATA: Radiographs reviewed today. New lumbar x-rays, AP, lateral, no scoliosis appreciated. Mild degenerative changes in the SI joints. Disc degeneration noted L5-S1, mild degenerative facet at L4-5 and L5-S1. No worsening of mild compression deformity at L3. Cervical x-rays, 4 views: AP view, mild low cervical disc degeneration noted. Lateral x-ray: Loss of cervical lordotic curve. There is disc height loss at C5- 6, degenerative changes noted at the atlantodens interval in flexion/extension, there is no segmental instability. There are some arthritic changes noted in the facet joints in the low cervical spine. ASSESSMENT: 1. female with lumbar axial back pain. MEDICAL DECISION MAKING: Do believe her lumbar pain is related to lumbar spondylosis with degenerative facets. She has a mild superior endplate fracture of L3. No new fractures noted. Did discuss with her conservative treatment including Pilates, lumbar stabilization and consideration of lumbar facet injections or medial branch blocks and ablation. Provided reassurance that there are no new lumbar fractures 2. Posterior cervical pain- medical decision making - the pain is a combination of muscular and facet driven. I did discuss with her moving forward with treatment options of physical therapy, heat and additional conservative measures including acupuncture, chiropractic and topical anesthetic. In the future, she could consider medial branch blocks and ablation treatments. PLAN: 1. PT Rx provided for decreasing pain, cervical spine, gradual axial decompression, modalities, cervical isometrics. 2. Lumbar spondylosis, follow up with conservative treatment. 3. Follow up on a p.r.n. basis. Marianna Olson MD 09 34 AM - Marianna Olson MD cn Dictation ID: [id number] documented in this encounter Plan of Treatment Scheduled Referrals Name Type Priority Associated Diagnoses Orde r Schedule AMB CONS/FOLLOW UP PHYSICAL THERAPY Outpatient Referral Routine Neck pain Spondylosis of cervical region without myelopathy or radiculopathy Ordered: 08/27/2017 documented as of this encounter Procedures Procedure Name Priority Date/Time Associated Diagnosis Comments L SPINE 2-3 VIEWS Routine 08/27/2017 14: 49 EDT Lumbar facet arthropathy (HCC-CMS) CERVICAL SPINE 4 OR MORE VIEWS Routine 08/27/2017 14:49 EDT Neck pain documented in this encounter Results * L SPINE 2-3 VIEWS (08/27/2017 14:49 EDT) Anatomical Region Laterality Modality Other 08/27/2017 14:4 9 EDT 08/28/2017 19:38 EDT Narrative 08/28/2017 19:38 EDT L SPINE 2-3 VIEWS ??08/27/2017 2:49 PM Clinical History/Comments: M46.96-Unspecified inflammatory spondylopathy, lumbar region ([facility]-CMS)-ICD-10; pain. Comparison: August 07, 2016. Technique: AP and lateral views of the lumbar spine were obtained. Findings: Mild lumbar levoscoliotic curvature is demonstrated with the apex of the curve at about L3-L4. Grade 1 anterolisthesis of L3 on L4 is again demonstrated. Vertebral body heights are preserved. There is moderate disc space narrowing at L4-L5 with reactive endplate sclerosis demonstrated. The degree of disc space narrowing appears similar to the previous films. Mild disc space narrowing at L5-S1 is also similar. Hypertrophy of the lower lumbar facet joints is again demonstrated. Surgical clips are noted in the right upper quadrant, likely from prior cholecystectomy. Procedure Note Haven Khan MD - 08/28/2017 L SPINE 2-3 VIEWS 08/27/2017 2:49 PM Clinical History/Comments: M46.96-Unspecified inflammatory spondylopathy, lumbar region (HCC-CMS)-ICD-10; pain. Comparison: August 07, 2016. Technique: AP and lateral views of the lumbar spine were obtained. Findings: Mild lumbar levoscoliotic curvature is demonstrated with the apex of the curve at about L3-L4. Grade 1 anterolisthesis of L3 on L4 is again demonstrated. Vertebral body heights are preserved. There is moderate disc space narrowing at L4-L5 with reactive endplate sclerosis demonstrated. The degree of disc space narrowing appears similar to the previous films. Mild disc space narrowing at L5-S1 is also similar. Hypertrophy of the lower lumbar facet joints is again demonstrated. Surgical clips are noted in the right upper quadrant, likely from prior cholecystectomy. Marianna Olson MD IMG DIAGNOSTIC IMAGI NG ORDERABLES * CERVICAL SPINE 4 OR MORE VIEWS (08/27/2017 14:49 EDT) Anatomical Region Laterality Modality Other 08/27/2017 14:4 9 EDT 08/28/2017 19:37 EDT Narrative 08/28/2017 19:37 EDT CERVICAL SPINE 4 OR MORE VIEWS ??08/27/2017 2:49 PM Clinical History/Comments: M54.8-Wrwmimvtrqa-JBK-10; pain. Comparison: None available. Technique: AP and lateral flexion, neutral and extension views of the cervical spine were obtained. Findings: There are seven nonrib-bearing cervical vertebrae. The transverse processes of C7 are slightly elongated and downsloping on the right and the left. Craniocervical and atlantoaxial alignment appear anatomic on the lateral projections. Anterolisthesis of C3 on C4 is accentuated in flexion and reduced on extension. Anterolisthesis of C4 on C5 is accentuated in flexion and reduced on extension. Vertebral body heights are preserved. There is mild disc space narrowing at C4-C5 and more moderate disc space narrowing at C5-C6 with anterior marginal osteophyte formation and uncovertebral spurring consistent with degenerative disc disease. Multilevel facet joint hypertrophy is noted. Procedure Note Haven Khan MD - 08/28/2017 CERVICAL SPINE 4 OR MORE VIEWS 08/27/2017 2:49 PM Clinical History/Comments: M54.5-Yyhesibksva-QRF-10; pain. Comparison: None available. Technique: AP and lateral flexion, neutral and extension views of the cervical spine were obtained. Findings: There are seven nonrib-bearing cervical vertebrae. The transverse processes of C7 are slightly elongated and downsloping on the right and the left. Craniocervical and atlantoaxial alignment appear anatomic on the lateral projections. Anterolisthesis of C3 on C4 is accentuated in flexion and reduced on extension. Anterolisthesis of C4 on C5 is accentuated in flexion and reduced on extension. Vertebral body heights are preserved. There is mild disc space narrowing at C4-C5 and more moderate disc space narrowing at C5-C6 with anterior marginal osteophyte formation and uncovertebral spurring consistent with degenerative disc disease. Multilevel facet joint hypertrophy is noted. Marianna Olson MD IMG DIAGNOSTIC IMAGI NG ORDERABLES documented in this encounter Visit Diagnoses Diagnosis Lumbar facet arthropathy- Primary Lumbosacral spondylosis without myelopathy Neck pain Cervicalgia Closed compression fracture of L3 lumbar vertebra with routine healing, subsequent encounter Spondylosis of cervical region without myelopathy or radiculopathy Cervical spondylosis without myelopathy documented in this encounter Historical Medications * This list may reflect changes made after this encounter. Medication Sig Dispensed Refills Start Date End Date montelukast (SINGULAIR) 10 mg tablet Take 10 mg by mouth daily. pantoprazole (PROTONIX) 40 mg tablet Take 40 mg by mouth daily. 10/06/2018 added in this encounter Care Teams Sign Maintenance Relationship Specialty Start Date End Date Kaylene Pinedo MD [address] [place] [id number] PCP - General 08/07/16 documented as of this encounter
--- OUTSIDE RECORDS SUMMARY | 2023-09-08 13:48 | XMS_ITS | Encounter Summary ---
Author Organization [facility] [place] [address] Care Team Providers Care Manager Physical Name Role Phone Christel Arndt Primary Care Provider [phone] Encounter Details Date Type Department Care Team (Latest Contact Info) Description 08/21/2022 Travel Social History Tobacco Use Types Packs/Day [...] 10:00 AM EDT [place] [phone] Deborah Richardson APRN documented as of this encounter Visit Diagnoses Not on filedocumented in this encounter Care Teams Manager Physical Relationship Specialty Start Date End Date Christel Arndt [address] [place] [address] PCP - General Family Medicine 06/28/22 documented as of this encounter
--- OUTSIDE RECORDS SUMMARY | 2023-09-08 13:48 | XMS_ITS | Encounter Summary ---
Author Organization Formerly [facility] [place] [address] Care Team Providers Care Deicer Kit Assembler Name Role Phone Moira Covarrubias MD Primary Care Provider [phone] Encounter Details Date Type Department Care Team (Late st Contact Info) Description 05/13/2022 11:20 AM EDT [place] [address] Deborah Richardson APRN Overactive bladder; IC (interstitial cystitis); History of UTI; Mixed stress and urge urinary incontinence Social [...] Sign Reading Time Taken Comments Blood Pressure 129/74 05/13/2022 11:33 AM EDT Pulse 79 05/13/2022 11:33 AM EDT Temperature - - Respiratory Rate 16 05/13/2022 11:33 AM EDT Oxygen Saturation 99% 05/13/2022 11:33 AM EDT Inhaled Oxygen Concentration - - Weight - - Height - - Body Mass Index - - documented in this encounter Patient Instructions * Patient Instructions* Deborah Richardson APRN - 05/13/2022 11:20 AM EDT Images from the original note were not included. Percutaneous Tibial Nerve Stimulation for Overactive Bladder. Behavioral Therapies These therapies can be effective as medication for reducing urinary incontinence. Avoid activities that exacerbate incontinence. Or prepare for how to handle them ahead of time I.E-tightening pelvic floor before coughing/sneezing/lifting/ect. Voiding Dairy- This provides feedback for when you return to monitor your progress. Timed (scheduled) Voiding- void by routine, set a timer and go to the bathroom at regular interval during the day, every 2-3 hours. This is helpful as it ensures you keep your bladder empty before incontinence can occur. If incontinence is worse at certain times of the day, try to go to the bathroom more frequently at this time. I.E. every hour from 6-9am. He BEST time to void is PRIOR to having the urge. Bladder training is a form of timed voiding that involves both timed intervals between voids and urge control. This combines timed voiding with controlling a strong urge to urinate. If going every 2 hours is to long start with stronger interval. I.E. days 1-3 void every 30 minutes, days 3-6 every hour, ect. Continue elongating the intervals every day or so when prior interval tolerated. This process can take up to 2 weeks to get to desired interval of every 2-3 hours. Suppressing the urge to void can be done by: remaining still until urge subsides, taking close deepbreaths, concentrating on eliminating the urge, distracting, or kinsey the pelvic floor. Quick flicks: quick kegels to counteract urinary urgency and suppress bladder contractions. When you get the sense of urge, kegel 3-4 quick times. Wait for the urge to subside and then walk slowly tothe bathroom. When the urge is gone, do not urinate until the next scheduled void. Double voiding (take time to feel you empty fully): This can be done by getting up and sitting backdown, or changing position. Pelvic Floor Muscle Training Kegels: 3 sets of 10, 3 times per day. Consciously tighten your pelvic floor prior to cough, laugh or sneeze to compress the urethra and minimize leakage Trial of physical therapy and biofeedback may be helpful for you Fluid Management: avoid excessive fluid intake. No more than 64oz (2 liters) per day and limit fluids 3 hours before bed to avoid nighttime voiding. Dietary Management- avoiding or limiting bladder irritants can suppress the urge to void and improve continence. Common Bladder Irritants: Alcohol, coffee, tea, citrus fruits and juices, tomatoes, spicy foods, sugar, honey, chocolate, onions, artificial sweeteners (especially nutrasweet), vinegar, aged or fermented foods, highly acidic foods. Some fruits may contribute as well: apples, cantaloupe, strawberries, cranberries, grapes, guava, peaches, pineapples and plums Camomile and Peppermint teas are not irritants. Weight Loss- has been shown to decrease the incidence of urinary incontinence. Avoiding constipation: Move your bowels daily. Take a fiber supplement like metamucil, or you couldtry Miralax. Please use these per the recommendations on the back of the package. Changes You can Make to Improve Bladder Problems The [facility] OAB Clinical Care [address] For more information on better bladder control visit: [email or web address] Controlling You Bladder Urges People with overactive bladder (OAB) may experience ???urgency.?? Signs of urgency are: Needing to urinate frequently Waking up in the night to go to the bathroom Bladder leaks The ???urge?? to urinate is normal and happens when your bladder is getting full. ???Urgency?? zuleima sudden, strong need to urinate that is difficult, or sometimes even impossible, to put off. Bladder urges come in waves. First they start. Then they grow stronger until they peak. Eventually, they subside. Most people with OAB respond to these urges by running to the bathroom. However,doing this can actually make things worse. It increases pressure in your bladder and causes urgency. In the end, rushing makes it more likely that you???ll lose control and have a bladder leak. There are a number of ways to try to reduce the sense of urgency. They can help you take control ofyour bladder, increase the amount of urine your bladder can hold, and reduce bladder leaks. The following tips are meant to help you cut down on your number of bathroom visits, and give you more control over your bladder and your life. When the urge strikes, don???t naylor to the bathroom. Instead: Stop and stay still. Sit down if you can. Squeeze your pelvic floor muscles quickly (3-5 times). Keep trying until the urgency gets smaller or you have it under control. Relax the rest of your body. Take a deep breath. Concentrate on stopping the urge. Wait until the urge goes away. Then walk to the bathroom at a normal pace. Other Ways to Reduce Your Bladder Urgency: Try relaxation techniques o Sit comfortably. Close your eyes. o Relax your muscles. Begin with your feet and work your way up your body. o Take slow, deep breaths in and out. Concentrate on the movement of your chest. Try to get your mind off of your bladder by focusing on something else, such as: o A nonphysical task. Try reading, handwork, balancing your checkbook, a puzzle, playing a game on an iPad or computer, or making a ???to-do?? or grocery list. o A mind task. Challenge yourself to count backwards from 100 by 7s. Self-affirmations. Repeat a phrase that reminds you that you are in control: o ???I can wait.?? o ???I am in control, not my bladder.?? Delayed Voiding Once you feel confident that you can control your bladder urges, it???s time to take the next step to strengthen your bladder control. To do this, follow these simple steps: 1. Instead of walking to the bathroom right after you control the urge, try waiting for 5 minutes before going instead. 2. Once you are comfortable with waiting 5 minutes, try waiting for 10 minutes. 3. If you find that you are urinating more than 8 times during the day, continue increasing the amount of time you wait. Eventually you will get on a more manageable bathroom schedule (every 3-4 hours during the day). Urge Control During the Night These urge-control tips work at night too. When you wake up with a bladder urge, try using the tipsthat work best for you for 2 minutes. If they work, great! You can go back to sleep. If the urge does not go away after 2 minutes, go ahead to the bathroom and then return to sleep. How long does it take for the urge-control approaches to work? Changes to your bladder control will be gradual. It will take time, practice, and patience to buildyour skills. Most people notice some positive changes within 2 weeks, but it may take 3 months or more to see the full effects of your efforts. documented in this encounter Progress Notes * Deborah Richardson APRN - 05/13/2022 11:20 AM EDT [facility] SECTION OF UROLOGY OUT PATIENT FOLLOW UP VISIT History of Present Illness: Ruthann Wolf is an 67 y.o. year old woman here for follow up of OAB w/ EULALIA and Interstitial Cystitis. She has CKD followed by Dr. Day in Nephrology. Urologic history: Saw me ~2004. She did have UDS about 5 years [...] showed 1 rbc/hpf and 0 wbc Today 05/13/22, Ruthann Wolf reports she is about the same. She thought she had a UTI about 1 month ago and was already on antibiotics for something else, which cleared up her symptoms. She is voiding every 1-1.5 hours during the day and 0 x per night. The frequency of urination is still bothersome to her, she can sometimes do urge suppression. She is not currently on mirabegron. She does not recall other interventions tried.. She does not recall if she started this at last visit (9 months ago) and stopped due to side effects. She is not having any pelvic pain, dysuria, hematuria, ordyspareunia at this time. Only if withholds urination too long. She is having some leaks, with stress maneuvers. She did PFPT last summer/Fall. She felt this went well made progress. She is being seen every fewmonths. She is on vaginal estrace cream- she often forgets tot use this. The patient leaks with the following stress maneuvers: coughing , laughing and sneezing. Leaks are mild, no pad use. She is able to catch leaks with pelvic floor exercises most of the time. She does not leak when lifting, when straining, when walking, when getting out of a chair and when bending over. She does not leak without warning urge features, on the way to the toilet, when full, around water and in cold weather. Her bowels are irregular ~1x/day varying consistentcy- based on dietary factors, some seepage afterdefication. Avg Daily Fluid intake: 48oz water, 1 cup decaf green tea, 1 cup chamomile tea, 1 cup juice. Gyne: G 4 P 1 #1 hysterectomy in 2008 for bleeding 3/4 weeks per month-uses estradiol cream 2-3x/week PMH: CKD, asthma, central serous chorioretinopathy, GERD, IBS, IC, osteoporosis. Osateoarthritis, compression fx in lumbar spine, plantar fasciitis bilaterally, insomnia, depression, anxiety, chronicfatigue syndrome. Past Surgical History: Procedure Laterality Date ??? CHOLECYSTECTOMY ??? HERNIA REPAIR x 2 ??? HYSTERECTOMY ??? LAPAROSCOPIC APPENDECTOMY ??? SINUS SURGERY ??? TONSILLECTOMY AND ADENOIDECTOMY Family Hx: dad had bladder cancer in his 80s. Social Hx: lives with son & family, never a smoker, no etoh. 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 Recent Labs: 06/07/2021: cre 1.38, glucose 117, lytes normal, GFR 41 and LFTs normal on amitriptyline. 07/20/2021: 1.41 and GFR 39 Impression: OAB w/ Mixed Urinary Incontinence History of IC- well controlled with behavioral therapies Intermittent UTIs Plan/Recommendations: ??? Encouraged continued use of behavioral therapies including timed and double voiding, moderationof fluids 3 hours prior to bed, hydration with water, moderation of bladder irritants, bladder control measures (urgency suppression/pelvic floor muscle training), moderation of bowels, and voiding di eleanor. ??? Continue with PFPT- working on urge suppression techniques. ??? Discussed medical therapies including anticholinergics or Beta 3 agonist for urge incontinence.These work to reduce nighttime awakenings, daytime urinary frequency, and urinary urgency by increasing bladder storage volumes and decrease over activity. - She would like to defer medications at this time. ??? We discussed if additional therapies may be available/recommended if first/second line treatments do not work or are not tolerated. Educated the best way to measure efficacy of treatment is with a void diary. o We discussed Bladder Botox, PTNS, and Interstim. She is interested in PTNS, but the ride would ashlee barrier at this time. ??? Call with UTI sx and we will do a culture at that time. Follow up in 1 year or sooner as needed. Patient verbalizes understanding and is agreeable to plan. All questions answered to her apparent satisfaction Deborah Richardson APRN Section of Urology [phone] documented in this encounter Plan of Treatment Upcoming Encounters Date Type Department Care Team (Late st Contact Info) Description 11/05/2023 10:00 AM EDT [place] [address] Deborah Richardson APRN documented as of this encounter Visit Diagnoses Diagnosis Overactive bladder Hypertonicity of bladder IC (interstitial cystitis) Chronic interstitial cystitis History of UTI Personal history of urinary (tract) infection Mixed stress and urge urinary incontinence Mixed incontinence urge and stress (male)(female) documented in this encounter Care Teams Deicer Kit Assembler Relationship Specialty Start Date End Date Moira Covarrubias MD PCP - General Family Medicine 07/17/21 06/27/22 documented as of this encounter
--- OUTSIDE RECORDS SUMMARY | 2023-09-08 13:48 | XMS_ITS | Encounter Summary ---
[place] [address] Care Team Providers Care Cigar Making Machine Supervisor Name Role Phone Moira Covarrubias MD Primary Care Provider [phone] Encounter Details Date Type Department Care Team (Latest Contact Info) Description 07/20/2021 1:15 PM EDT Laboratory Appointment Lab [address] [place] [address] Stage 3b chronic kidney disease Social History Tobacco Use Types Packs/Day Years [...] 10:00 AM EDT [place] [address] Deborah Richardson APRN documented as of this encounter Procedures Procedure Name Priority Date/Time Associated Diagnosis Comments HC PARATHYROID HORMONE(PTH INTACT Routine 07/20/2021 1:27 PM EDT Stage 3b chronic kidney disease HEMOGRAM Routine 07/20/2021 1:27 PM EDT Stage 3b chronic kidney disease DIFFERENTIAL, AUTOMATED Routine 07/20/2021 1:27 PM EDT Stage 3b chronic kidney disease HC VENIPUNCTURE Routine 07/20/2021 1:27 PM EDT Stage 3b chronic kidney disease HC CBC,PLT & AUTO DIFF Routine 07/20/2021 1:27 PM EDT Stage 3b chronic kidney disease BASIC METABOLIC PANEL (NON-FASTING) Routine 07/20/2021 1:27 PM EDT Stage 3b chronic kidney disease documented in this encounter Results * Differential, Automated (07/20/2021 1:27 PM EDT) Neutrophils % 64.0 % [facility] Neutr Abs (ANC) 5.48 1.70 - 6.10 x10(3)/[facility] Lymphocytes % 25.0 % [facility] Lymphocytes Abs 2.1 0.9 - 3.2 x10(3)/[facility] Monocytes % 7.5 % [facility] Monocyte Abs 0.6 0.3 - 0.9 x10(3)/[facility] Eosinophils % 2.5 % [facility] Eosinophils Abs 0.2 0.0 - 0.4 x10(3)/[facility] Basophils % 0.6 % [facility] Basophils Abs 0.0 0.0 - 0.1 x10(3)/[facility] Immature Gran % 0.40 % [facility] Comment: Immature granulocytes(IG's)percentage and absolute count will include metamyelocytes, myelocytes, and promyelocytes. Blood smears from CBCs yielding IG's will be scanned manually for concordance. If this scan disagrees with the automated IG or if promyelocytes are noted, a manual differential will be performed. Renetta Gran Abs 0.03 0.00 - 0.04 x10(3)/[facility] Blood 07/20/2021 1:27 PM EDT 07/20/2021 1:49 PM EDT Narrative Resulting Agency Comment Spec In Lab Kwame Day MD HEMATOLOGY ORDERABLE S [facility] [place] [address] * Hemogram (07/20/2021 1:27 PM EDT) WBC 8.6 4.0 - 9.5 x10(3)/[facility] RBC 4.36 4.00 - 5.21 x10(6)/[facility] Hemoglobin 12.7 11.7 - 15.5 g/dL [facility] Hematocrit 38.8 35.7 - 45.8 % [facility] MCV 89.0 82.6 - 94.4 [facility] MCH 29.1 27.1 - 32.0 pg [facility] MCHC 32.7 31.7 - 35.0 g/dL [facility] Platelets 217 145 - 357 x10(3)/[facility] RDWSD 42.5 37.0 - 46.0 [facility] RDWCV 12.8 11.5 - 14.1 % [facility] MPV 12.3 7.6 - 12.9 [facility] nRBC % Auto 0.0 % [facility] nRBC Abs Auto 0.000 0.000 - 0.000 x10(3)/[facility] Blood 07/20/2021 1:27 PM EDT 07/20/2021 1:49 PM EDT Narrative Resulting Agency Comment Spec In Lab Kwame Dya MD HEMATOLOGY ORDERABLE S [facility] [place] [address] * (ABNORMAL) Basic Metabolic Panel (non-fasting) (07/20/2021 1:27 PM EDT) Glucose Lvl 100 65 - 199 mg/dL [facility] Comment:Diabetes: >=200 mg/d L plus symptoms BUN 19(H) 8 - 18 mg/dL [facility] Creatinine 1.41(H) 0.70 - 1.20 mg/dL [facility] Sodium 142 135 - 145 mmol/L [facility] Potassium 3.7 3.5 - 5.0 mmol/L [facility] Comment: Please note: ??Patients with WBC >100,000 may have falsely elevated Potassium levels. ??For accurate Potassium quantification in these patients send serum separator tube (gold top) for subsequent determinations. ??Contact the Clinical Chemistry Laboratory if there are any questions. Chloride 107 98 - 107 mmol/L [facility] CO2 23 22 - 31 mmol/L [facility] Anion Gap 12 5 - 15 mmol/L [facility] Calcium 9.3 8.5 - 10.5 mg/dL [facility] Estimated GFR 39(L) >=60 mL/min/1. 73 m?? [facility] Comment: This patient? s estimated glomerular filtration rate (eGFR) is between 39 mL/min/1.73 m2 (patients with less muscle mass) and 45 mL/min/1.73 m2 (patients with more muscle mass) as determined by the CKD-EPI equation. Assessment of eGFR is not appropriate when creatinine concentrations are rapidly changing. For clinical decisions where creatinine clearance will affect therapy, a 24-hour urine creatinine clearance may be advised. Assignment of CKD stage 1 - 5 for patients with an eGFR near the transition point between stages may be based on clinical assessment of muscle mass and symptoms in addition to eGFR. Blood 07/20/2021 1:27 PM EDT 07/20/2021 1:49 PM EDT Narrative Resulting Agency Comment Spec In Lab Kwame Day MD CHEMISTRY ORDERABLES [facility] [place] [address] * PTH (07/20/2021 1:27 PM EDT) PTH 50 15 - 65 pg/mL [facility] Blood 07/20/2021 1:27 PM EDT 07/20/2021 2:15 PM EDT Narrative Resulting Agency Comment Spec In Lab Kwame Day MD CHEMISTRY ORDERABLES Performing Organization Address City/[facility]/ZIP Co de Phone Number [facility] [place] [address] * Vitamin D, 25-Hydroxy (07/20/2021 1:27 PM EDT) 25-OH Vit D Total 39 21 - 100 ng/mL [facility] 25-OH Vit D Interp Sufficient [facility] Blood 07/20/2021 1:27 PM EDT 07/20/2021 1:50 PM EDT Narrative Resulting Agency Comment Spec In Lab Kwame Day MD CHEMISTRY ORDERABLES Performing Organization Address City/[facility]/ZIP Co de Phone Number [facility] [place] [address] documented in this encounter Visit Diagnoses Diagnosis Stage 3b chronic kidney disease documented in this encounter Care Teams Cigar Making Machine Supervisor Relationship Specialty Start Date End Date Moira Covarrubias MD PCP - General Family Medicine 07/17/21 06/27/22 documented as of this encounter
--- OUTSIDE RECORDS SUMMARY | 2023-09-08 13:48 | XMS_ITS | Encounter Summary ---
Author Organization [facility] Address [facility] [place] [address] Care Team Providers Care Genetic Physician Name Role Phone Moira Covarrubias MD Primary Care Provider [phone] Reason for Referral * Consultation (Routine) - Closed Specialty Diagnoses / Procedures Referred By Leidy lemon Referred To Contact Dermatology Diagnoses Encounter for allergy testing Darrius Mackay MD [address] [address] Mick Contreras MD [facility] [address] [facility] [place] [address] Referral ID Status Reason Start Date Expiration Date V isits Requested Visits Authorized [id number] Closed Consult, Test & Treat 03/20/2022 03/20/2023 1 1 Encounter Details Date Type Department Care Team (Late st Contact Info) Description 03/20/2022 Transcribe Orders eDH Incoming Referrals [phone] Darrius Mackay MD [address] [address] Encounter for allergy testing Social History Tobacco Use Types Packs/Day Years [...] 10:00 AM EDT [place] [address] Deborah Richardson APRN Scheduled Referrals Name Type Priority Associated Diagnoses Order Schedule Referral to Dermatology Outpatient Referral Routine Encounter for allergy testing Ordered: 03/20/2022 documented as of this encounter Visit Diagnoses Diagnosis Encounter for allergy testing Diagnostic skin and sensitization tests documented in this encounter Care Teams Genetic Physician Relationship Specialty Start Date End Date Moira Covarrubias MD PCP - General Family Medicine 07/17/21 06/27/22 documented as of this encounter
--- OUTSIDE RECORDS SUMMARY | 2023-09-08 13:48 | XMS_ITS | Encounter Summary ---
Author Organization [facility] [place] [address] Care Team Providers Care Job Coach Name Role Phone Moira Covarrubias MD Primary Care Provider [phone] Encounter Details Date Type Department Care Team (Latest Contact Info) Description 04/23/2022 Travel Social History Tobacco Use Types Packs/Day [...] 10:00 AM EDT [place] [address] Deborah Richardson APRN documented as of this encounter Visit Diagnoses Not on filedocumented in this encounter Care Teams Job Coach Relationship Specialty Start Date End Date Moira Covarrubias MD PCP - General Family Medicine 07/17/21 06/27/22 documented as of this encounter
--- OUTSIDE RECORDS SUMMARY | 2023-09-08 13:48 | XMS_ITS | Encounter Summary ---
[place] [address] Care Team Providers Care Field Artillery Cannoneer Name Role Phone Moira Covarrubias MD Primary Care Provider Reason for Referral * Consultation (Routine) - Closed Specialty Diagnoses / Procedures Referred By Leidy t Referred To Contact [facility] Diagnoses Pain in thoracic spine back pain/ ? imaging Moira Covarrubias MD [address] [place] [id number] [facility] [place] [address] Referral ID Status Reason Start Date Expiration Date V isits Requested Visits Authorized [id number] Closed Consult, Test & Treat PCP Updated and/or Approved 04/16/2022 04/16/2023 1 1 Encounter Details Date Type Department Care Team (Latest Contact Info) Description 04/16/2022 Transcribe Orders eDH Incoming Referrals [phone] Moira Covarrubias MD [address] [place] [id number] Pain in thoracic spine Social History Tobacco Use Types Packs/Day Years [...] 10:00 AM EDT [place] [address] Deborah Richardson APRN Scheduled Referrals Name Type Priority Associated Diagnoses Order Schedule Referral to Pain Management Outpatient Referral Routine Pain in thoracic spine Ordered: 04/16/2022 documented as of this encounter Visit Diagnoses Diagnosis Pain in thoracic spine documented in this encounter Care Teams Field Artillery Cannoneer Relationship Specialty Start Date End Date Moira Covarrubias MD PCP - General Family Medicine 07/17/21 06/27/22 documented as of this encounter
--- OUTSIDE RECORDS SUMMARY | 2023-09-08 13:48 | XMS_ITS | Encounter Summary ---
[place] [address] Care Team Providers Care Doctor Of Dental Surgery Name Role Phone Moira Covarrubias MD Primary Care Provider [phone] Reason for Visit * Reason Comments Establish Care BILAT KNEE PAIN * Consultation (Routine) - Closed Specialty Diagnoses / Procedures Referred By Contact Referred To Contact Orthopaedic Surgery / Orthopaedics Diagnoses Bilateral knee pain Self mail [facility] [address] [place] [address] Referral ID Status Reason Start Date Expiration Date Visits Re quested Visits Authorized [id number] Closed 01/08/2022 01/08/2023 1 1 Encounter Details Date Type Department Care Team (Late st Contact Info) Description 01/16/2022 1:30 PM EST Office [place] [address] Clinic, Dr Agee Team None Chronic pain of both knees Social History Tobacco Use Types Packs/Day Years [...] Sign Reading Time Taken Comments Blood Pressure 143/74 01/16/2022 1:36 PM EST Pulse 83 01/16/2022 1:36 PM EST Temperature - - Respiratory Rate - - Oxygen Saturation - - Inhaled Oxygen Concentration - - Weight 67.1 kg (148 lb) 01/16/2022 1:36 PM EST w ith shoes Height 170.2 cm (5' 7) 01/16/2022 1:36 PM EST Body Mass Index 23.18 01/16/2022 1:36 PM EST documented in this encounter Progress Notes * Lonnie Agee MD - 01/16/2022 1:30 PM EST Patient ID: Ruthann Wolf Chief Complaint Patient presents with ??? Establish Care BILAT KNEE PAIN HPI Both knees are a problem but the LEFT is worse. 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 No surgeries. No bracing. Has had films outside but they are not available. Ballet is very important to her and she is having to modify that which she does not want to give up. No PT for her knees. Patient Active Problem List Diagnosis Code ??? CKD (chronic kidney disease) N18.9 ??? HTN (hypertension) I10 ??? GERD (gastroesophageal reflux disease) K21.9 ??? Disequilibrium R42 ??? Mixed stress and urge urinary incontinence N39.46 ??? IC (interstitial cystitis) N30.10 ??? History of UTI Z87.440 ??? Renal scarring N28.89 ??? Acute UTI (urinary tract infection) N39.0 ??? OAB (overactive bladder) N32.81 ??? Chronic pelvic pain in female R10.2, G89.29 Allergies Allergen Reactions ??? Cis Free Text Allergy Peanuts, ham, rice, nuts, soy seeds ??? Cat/Feline Products ??? Cis Free Text Allergy muscle relaxants. ??? Cis Free Text Allergy many antidepressants. ??? Cis Free Text Allergy many antianxiety. ??? Cis Free Text Allergy multiple foods. ??? Corticosteroids (Glucocorticoids) ??? Dog Dander ??? Erythromycin Base ??? Iodinated Contrast Media ??? Milk Patient tolerate cheese without issue ??? Milk Based Formulas ??? Mold ??? Nsaids (Non-Steroidal Anti-Inflammatory Drug) ??? Other [Unclassified Drug] Steroids Narcotic pain medications ??? Penicillins CIS - Unknown, CIS - Unknown Current Outpatient Medications on File Prior to Visit Medication Sig Dispense Refill ??? famotidine (Pepcid) 20 mg Tablet Take 20 mg by mouth as needed. ??? fexofenadine (RONADL) 180 mg Tablet Take 180 mg by mouth daily. ??? montelukast (Singulair) 10 mg Tablet Take 10 mg by mouth nightly. ??? cyanocobalamin, vitamin B-12, 1,000 mcg/mL Drops Take by mouth every other day. ??? TURMERIC ORAL Take 2 capsules by mouth daily. ??? cholecalciferol, Vitamin D3, 10 mcg (400 unit) Capsule Vitamin D3 with k2 1000iu and k2 100mcg ??? albuteroL (Proventil) 2.5 mg /3 mL (0.083 %) Solution for Nebulization Every 6 hours. ??? LEVALBUTEROL TARTRATE INHL levalbuterol tartrate as needed ??? pantoprazole EC (Protonix) 40 mg Tablet, Delayed Release (E.C.) Every 12 hours. ??? estradiol (ESTRACE) 0.01 % (0.1 mg/gram) Cream Place 2 g vaginally. 3 TIMES A WEEK ??? levalbuterol (XOPENEX) 0.63 mg/3 mL nebulizer solution Take 1 ampule by nebulization every 4 hours as needed. ??? acetaminophen (TYLENOL) 500 mg tablet Take by mouth as needed. 1 - 2 tablets = 1,000 mg As needed ??? traZODone (DESYREL) 50 mg tablet Take 100 mg by mouth nightly. ??? epiNEPHrine (EPIPEN) 0.3 mg/0.3 mL injection 0.3 MG/0.3 ML, IM, as directed ??? mirabegron (Myrbetriq) 25 mg Tablet Sustained Release 24 hr Take 1 tablet by mouth daily. (Patient not taking: Reported on 01/16/2022) 30 tablet 11 ??? MULTI-VITAMIN ORAL Take by mouth. ??? cetirizine (ZYRTEC) 10 mg tablet 10 MG = 1 Tablet(s), PO, Once daily,PRN No current facility-administered medications on file prior to visit. Review of Systems General Health, Prior Treatments, PreExisting Condition, Health Habits, About You 01/09/2022 PROMIS-10 General Health Fair PROMIS-10 Quality of Life Good PROMIS-10 Physical Health Fair PROMIS-10 Mental Health Fair PROMIS-10 Social Activity Good PROMIS-10 Everyday Activities Completely PROMIS-10 Pain 3 PROMIS-10 Fatigue Severe PROMIS-10 Social Roles Good PROMIS-10 Anxious or Depressed Sometimes PROMIS PHYSICAL SCORE (range 16-68) 42.3 PROMIS MENTAL SCORE (range 21-68) 41.1 KOOS JR Scores 63.78 TKA Grade 5 Alzheimers or dementia No Cirrohosis or liver disease No HIV/AIDS No Pain in more than one joint in legs Yes Back or neck pain Yes Heart attack No Heart failure No Unclog/bypass leg arteries No Stroke, blood clot, TIA No Asthma Yes Take medication for asthma Yes Emphysema, chronic bronchities, or COPD No Stomach ulcers/peptic ulcer disease No Diabetes No Poor kidney function Yes Dialysis No Kidney transplant No Rheumatic condtions No Cancer No Weight (lbs) 143 Height (feet) 5 feet Height (Inches) 7 BMI 22.39 (Normal) Ever used tobacco products No Ever used alcoholic beverages No Live Alone No Marital situation / Schooling 4 - year college Combined Household Income $35,000 to less than $50,000 # People Supported 1 Ethiopian, , No, not Ethiopian// Race White Health Literacy Extremely Currently working No Not working because: Retired [facility] Response 01/09/2022 KOOS JR Scores 63.78 Spine [facility] Response 01/09/2022 KOOS JR Scores 63.78 Objective Blood pressure 143/74, pulse 83, height 170.2 cm (5' 7), weight 67.1 kg (148 lb). Physical Exam I have made the following determinations: Knee Exam: Left Prior surgery on this joint: No Knee ROM: Extension:0 Flexion: 130 Alignment: 0-4 degrees Varus Stability: A/P Translation <5mm Varus (lateral stability) <5mm Valgus (medial stability) <5mm Extension La degrees or less Radiographic evidence of joint damage: [0= normal; 1=minimal ; 2= some osteophytes , some narrowing ; 3= moderate osteophytes, significantnarrowing, mild deformity; 4= large osteophytes, marked narrowing, obvious deformity]: 1= minimal Patella Tracking: Normal Skin Integrity: Normal Pulses Palpable: Left PT:Yes Left DP:Yes Motor/Sensory: Distal Motor:Normal Distal Sensory: Normal Quadriceps Strength:5 I have made the following determinations: Knee Exam: Right Prior surgery on this joint: No Knee ROM: Extension:0 Flexion: 120 Alignment: 0-4 degrees Varus Stability: A/P Translation <5mm. Varus (lateral stability) <5mm Valgus (medial stability) <5mm Extension La degrees or less Radiographic evidence of joint damage: [0= normal; 1=minimal ; 2= some osteophytes , some narrowing ; 3= moderate osteophytes, significantnarrowing, mild deformity; 4= large osteophytes, marked narrowing, obvious deformity]: 1= minimal Patella Tracking: Normal Skin Integrity: Normal Pulses Palpable: Right PT: Yes Right DP:Yes Motor/Sensory: Distal Motor: Normal Distal Sensory: Normal Quadriceps Strength: 5 Imaging: Multiple radiographic views were obtained at my request. I personally reviewed the images and shared them with the patient. Osteopenia but no significant DJD or bone spurs. Assessment & Plan B Knee pain Discussed the importance of core and abductor work given her sxs and demand We will call her with the results of her imaging. F/U PRN documented in this encounter Plan of Treatment Upcoming Encounters Date Type Department Care Team (Late st Contact Info) Description 11/05/2023 10:00 AM EDT [place] [address] Deborah Richardson APRN documented as of this encounter Results * XR Knee Standing Alignment AP Lat [place] Bilat (01/16/2022 2:36 PM EST) Anatomical Region Laterality Modality Bilateral Digital Radiogra phy Impressions 01/16/2022 3:20 PM EST 1. ??Mild osteoarthropathy of both knees with equivocal narrowed medial joint space. 2. ??No effusion. Thank you for letting us participate in the care of this patient. ??If you are a health care provider and have any questions regarding this report, please contact the number below. ??For patients who have questions please contact the health career development coordinator/teacher that requested your imaging first. ? Electronically signed by: Kristin Alaniz MD, [facility] ([phone]), at 01/16/2022 3:20 PM Narrative 01/16/2022 3:20 PM EST EXAMINATION: XR KNEE STANDING ALIGNMENT AP LAT [place] BILAT CLINICAL HISTORY: bilateral knee pain, , entered by ordering service TECHNIQUE: One single AP image was taken with the patient standing. ??The image was taken with a long-view panel and includes from the pelvis to the ankles. Standing AP , PA Henry, lateral and skyline views of both knees COMPARISON: None FINDINGS: Exam 1 - Standing alignment The right weight bearing axis is 24 mm medial to tibial eminence. The left weight bearing axis is 15 mm medial to tibial eminence.. Exam 2: Bones: No acute fracture is present. Knee Joints: Equivocal narrowed bilateral medial joint spaces and osteophytic lipping.. Soft tissue: Subcentimeter the well-corticated bone fragment at tip of RIGHT fibular head suggests old posterior lateral corner injury. . Normal patellofemoral alignment and preserved joint spaces Procedure Note Kristin Alaniz MD - 01/16/2022 EXAMINATION: XR KNEE STANDING ALIGNMENT AP LAT [place] SKYLINE BILAT CLINICAL HISTORY: bilateral knee pain, , entered by ordering service TECHNIQUE: One single AP image was taken with the patient standing. Theimage was taken with a long-view panel and includes from the pelvis to theankles. Standing AP , PA Henry, lateral and skyline views of both knees COMPARISON: None FINDINGS: Exam 1 - Standing alignment The right weight bearing axis is 24 mm medial to tibial eminence. The left weight bearing axis is 15 mm medial to tibial eminence.. Exam 2: Bones: No acute fracture is present. Knee Joints: Equivocal narrowed bilateral medial joint spaces and osteophyticlipping.. Soft tissue: Subcentimeter the well-corticated bone fragment at tip of RIGHT fibularhead suggests old posterior lateral corner injury. . Normal patellofemoralalignment and preserved joint spaces IMPRESSION 1. Mild osteoarthropathy of both knees with equivocal narrowed medialjoint space. 2. No effusion. Thank you for letting us participate in the care of this patient. If youare a health care provider and have any questions regarding this report,please contact the number below. For patients who have questions please contactthe health career development coordinator/teacher that requested your imaging first. Electronically signed by: Kristin Alaniz MD, [facility]([phone]), at 01/16/2022 3:20 PM Lonnie Agee MD IMG DX ORDERABLES documented in this encounter Visit Diagnoses Diagnosis Chronic pain of both knees Chronic pain of both knees documented in this encounter Care Teams Doctor Of Dental Surgery Relationship Specialty Start Date End Date Moira Covarrubias MD PCP - General Family Medicine 07/17/21 06/27/22 documented as of this encounter
--- OUTSIDE RECORDS SUMMARY | 2023-09-08 13:48 | XMS_ITS | Encounter Summary ---
Author Organization [facility] [place] [address] Care Team Providers Care Park Ranger Name Role Phone MilkaSherwinChristel Primary Care Provider [phone] Reason for Referral * Physical Therapy (Routine) - Closed Specialty Diagnoses / Procedures Referred By Leidy lemon Referred To Contact Diagnoses Other spondylosis with radiculopathy, lumbar region Sacroiliac joint dysfunction of left side Piriformis syndrome of left side Thoracic back pain, unspecified back pain laterality, unspecified chronicity Robert Villela MD [facility] [place] [place] [address] Referral ID Status Reason Start Date Expiration Date V isits Requested Visits Authorized [id number] Closed Evaluate and Treat 08/21/2022 02/17/2023 12 12 Reason for Visit * Reason Comments Back Pain Thoracic back pain * Consultation (Routine) - Closed Specialty Diagnoses / Procedures Referred By Contkaleb t Referred To Contact [facility] Diagnoses Pain in thoracic spine back pain/ ? imaging Moira Covarrubias MD [address] [place] [id number] [facility] [place] [address] Referral ID Status Reason Start Date Expiration Date V isits Requested Visits Authorized [id number] Closed Consult, Test & Treat PCP Updated and/or Approved 04/16/2022 04/16/2023 1 1 Encounter Details Date Type Department Care Team (Late st Contact Info) Description 08/21/2022 11:00 AM EDT Office Visit [place] [address] Robert Villela MD [facility] [place] [place] [address] Other spondylosis with radiculopathy, lumbar region (Primary Dx); Sacroiliac joint dysfunction of left side; Piriformis syndrome of left side; Osteoporosis, post-menopausal; Thoracic back pain, unspecified back pain laterality, unspecified chronicity Social History Tobacco Use Types Packs/Day Years [...] Sign Reading Time Taken Comments Blood Pressure 130/70 08/21/2022 10:51 AM EDT Pulse 77 08/21/2022 10:51 AM EDT Temperature - - Respiratory Rate - - Oxygen Saturation 100% 08/21/2022 10:51 AM EDT Inhaled Oxygen Concentration - - Weight 65.3 kg (144 lb) 08/21/2022 10:51 AM EDT Height 171.5 cm (5' 7.5) 08/21/2022 10:51 AM ED T Body Mass Index 22.22 08/21/2022 10:51 AM EDT documented in this encounter Progress Notes * Robert Villela MD - 08/21/2022 11:00 AM EDT [facility] Initial Consultation Note Name: Ruthann Wolf : 1955 Consulting Physician: Seeing at the request of Moira Capone MD [address] [place] [id number] Chief Complaint: Neck, mid-thoracic back, and lower back pain History of Present Illness: Ruthann Wolf is a 67 y.o. female with a history of anxiety, depression, IBS, GERD, osteoporosis, chronic fatigue, chronic asthma, and interstitial cystitis who presents with neck, upper thoracic back pain, and lower back pain. She complains mostly of lower back pain as well as thoracic spine discomfort and curious about a possible VCF. Lumbar spine injury happened while doing ballet 5 years ago. She has not had any treatments for herlower back or midthoracic back pain. She was seen by Dr. Agee from Orthopedics (01/16/2022) and was reportedly told that she might have a VCF. There are no images of the T-spine imaging available. The only L-spine images available are through [facility]. Her L-spine xrays are from 2018: Findings: Mild lumbar levoscoliotic curvature is demonstrated [...] right upper quadrant, likely from prior cholecystectomy. She has been experiencing blackouts with no inciting event. Usually happens when dehydrated and hypoglycemic. She gets dizzy spells. She has not had any recent neurology evaluation. Functional Goals of Treatment: Decreased pain and increased function Onset/Context of pain: Pain Location: Lower back pain Onset: 5 years ago while doing ballet Quality and timing of pain: Aching, stiffness Radiation: B hips L>R. No radiation to the LE's. Pain Ratin/10; can go up to 5/10 Aggravating Factors: Lifting Relieving Factors: Lengthening exercises Numbness/Tingling: RUE in the AM, tingling at B heels Sleep: Erratic but not because of pain Mood: Really good for everything that is going on Has depression and anxiety in the evenings Red flag symptoms: Bowel and bladder: No loss of control Saddle anesthesia: Denies Weakness: Occasional leg weakness L>R, but not permanent. She does report loss of balance. Pertinent History: h/o Thrombocytopenia/bleeding tendency/platelet dysfunction: No h/o Liver disease/abnormal liver function: No h/o Chronic kidney disease (CKD)/abnormal kidney function: Yes, CKD Patient on dialysis: no h/o Diabetes: No Anticoagulation/Aspirin: No Current pain treatments include: Acetaminophen Conservative Treatment: The patient has been actively engaged in Physical therapy at [facility] within the last 6 months for a duration of 6 weeks or more. This was geared towards her knees. A home exercise program is being performed as tolerated. She has done ballet for the last 30 (+) years. Topicals: NONE Helpful? N/A NSAIDS: She has GERD. Cannot take NSAIDs Helpful? N/A Acetaminophen: Yes Helpful? Yes Antidepressants: NONE Helpful? N/A Antiepileptics: NONE Helpful? N/A Muscle Relaxants: Cannot tolerate due to severe bradycardia Helpful? N/A Opioids: NONE Helpful? N/A Other Medications: NONE Helpful? N/A Other Treatment: Acupuncture, Asthma Educator Helpful? Yes History of Interventional Procedures/Surgery: Prior Surgery: No Injection History (date, procedure, %improvement): None Chart review: Today I have reviewed available medical information in the patient's medical record at [facility] including relevant provider notes, laboratory work, and imaging. Historical Review: I have reviewed the patient's past medical, surgical, social, and family history available in the EMR at this time along with supplemented information provided by the patient during the interview process today. Medical: She has been diagnosed with central serous choreal retinopathy Pertinent findings: Allergies Allergen Reactions Cis Free Text Allergy [...] antianxiety. Cis Free Text Allergy multiple foods. 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 Legal issues (WC/MVA, etc): N/A Housing: Lives with Family- Her son and his family live with her Medications and list of allergies: Medications and allergies were reviewed, reconciled and updated in the electronic medical record. ROS: Positive for above mentioned musculoskeletal and neurological findings on 14 point system review. Areas of disrupted skin integrity/wounds/lesions: No Denies any other constitutional symptoms, fevers, or weight changes. Physical Exam: Blood pressure 130/70, pulse 77, height 171.5 cm (5' 7.5), weight 65.3 kg (144 lb), SpO2 100 %. Pain: 0 - No pain General: Well-nourished, well-developed, female in moderate distress Respiratory: Non-labored breathing pattern on RA. No respiratory distress Cardiovascular: No edema or cyanosis. 2+ peripheral pulses Skin: No appreciable rashes or skin breakdown Psych: Appropriate affect, answers questions appropriately Musculoskeletal: Inspection - No gross appendicular or axial deformities Palpation - Tender with palpation of the SI joint on the left, Piriformis on the left, and Thoracicparaspinous on the left ROM - Lumbar Flexion , Extension, Lateral rotation is WNL Special tests: - SI Joint provocative testing is Positive on the left via Sacral Thrust, Thigh Thrust, and Tan's finger - Facet loading in the Thoracic and lumbar spine is Positive - Straight Leg Raise Positive on the left - FAIR Positive on the left - Hip ROM is WNL bilaterally. Neurologic: Motor: 5/5 throughout all muscle groups of the lower extremities Reflexes: Segment Reflex Right Left L3-4 Patella 1+ 1+ S1-2 Achilles 0+ 0+ Upper Motor Neuron Signs: Babinski is downgoing bilaterally Clonus is not present bilaterally (0=absent, 1=slight response, 2=brisk/normal, 3=very brisk, 4=clonus) Sensory - Intact to light touch and pinprick at bilateral upper and lower extremities. Gait/Station - Antalgic Gait Diagnostic Tests: Most recent Cervical Spine (Neck and Brain- done for stroke work up) MRI was completed on 07/13/2019 at [facility]. In addition to the formal radiology read, I independently reviewed the imaging and shared my interpretation with the patient. IMPRESSION MRI brain: No acute intracranial abnormality. Prominent nasopharyngeal soft tissue. Direct visualization recommended. MRA head: Negative exam MRA the neck: Negative exam MRI cervical spine: 1. Limited by motion. 2. Changes of cervical spondylosis at C5-6. 3. Abnormal marrow signal C4 segment. Differential is broad and include both benign and malignant etiology. Recommend CT evaluation and clinical correlation recommended. 4. Disc protrusions C5-6 greater than C4-5. Unclear if a follow up CT scan was obtained. DEXA Scan from 02/12/2022 showed osteoporosis. Assessment: Ruthann Wolf is a 67 y.o. female with a PMH including anxiety, depression, IBS, GERD, osteoporosis, chronic fatigue, chronic asthma, and interstitial cystitis who [facility] regarding neck, mid-thoracic and lower back pain. Her thoracic and lower back pain seem to bother her most. 1. Sacroiliac joint dysfunction of left side 2. Other spondylosis with radiculopathy, lumbar region 3. Piriformis syndrome of left side 4. Osteoporosis, post-menopausal 5. Thoracic back pain, unspecified back pain laterality, unspecified chronicity Summary of Conservative Treatment Response: The patient reports that the home exercise program, and conservative treatment prescribed thus far is providing partial improvement but the patient has not achieved functional goals of treatment. Plan/Recommendations: We reviewed etiology, predisposing factor(s), natural course, imaging results as well as treatment options including medications, physical therapy/exercise, therapeutic injections, and surgery. The risks, consequences, alternatives, and benefits of various treatment options were discussed with the patient in great detail. We have discussed and recommended the following: - Medications: No new prescription at this time. Patient will continue current medications. - Imaging: T-and L-spin eX-rays ordered to r/o VCF. Will consider an L-spine MRI. - Physical Therapy/Modalities/DME: Patient would benefit from Physical Therapy and a referral was provided for the patient. - Interventional/Surgical Procedures: We have discussed the left-sided sacroiliac joint piriformis injections. Patient would like to defer at the current time and will consider. - Referrals: No additional referrals at this time. - Activity: as tolerated - Follow-up: Will follow up after x-rays completed. Thank you for allowing us the opportunity to participate in Ruthann Wolf's care. Robert Villela MD Attending Physician [facility] [place] [address] / ADD: T-spine and L-spine X-ray on 08/21/2022 at [facility]: IMPRESSION 1. No vertebral body compression fracture or other acute abnormality. 2. Mild upper to mid thoracic spondylosis with slightly exaggerated kyphosis. 3. Multilevel lumbar spondylosis and facet osteoarthropathy without radiographic finding of dynamicinstability, using a 4 mm threshold for abnormal translation. CC: Moira Capone MD [address] [place] [id number] documented in this encounter Plan of Treatment Upcoming Encounters Date Type Department Care Team (Late st Contact Info) Description 11/05/2023 10:00 AM EDT [place] [address] Deborah Richardson APRN Scheduled Referrals Name Type Priority Associated Diagnoses Orde r Schedule Referral to Physical Therapy Outpatient Referral Routine Other spondylosis with radiculopathy, lumbar region Sacroiliac joint dysfunction of left side Piriformis syndrome of left side Thoracic back pain, unspecified back pain laterality, unspecified chronicity Ordered: 08/21/2022 documented as of this encounter Results * XR Lumbar Spine 2 Or 3 Views (Generic) (08/21/2022 12:59 PM EDT) Anatomical Region Laterality Modality L-spine N/A Digital Radiogra phy Impressions 08/21/2022 3:36 PM EDT 1. No vertebral body compression fracture or other acute abnormality. 2. Mild upper to mid thoracic spondylosis with slightly exaggerated kyphosis. 3. Multilevel lumbar spondylosis and facet osteoarthropathy without radiographic finding of dynamic instability, using a 4 mm threshold for abnormal translation. Thank you for letting us participate in the care of this patient. ??If you are a health care provider and have any questions regarding this report, please contact the number below. ??For patients who have questions please contact the health care aid that requested your imaging first. ? Electronically signed by: Elida Paez MD, [facility] ([phone]), at 08/21/2022 3:36 PM Narrative 08/21/2022 3:36 PM EDT EXAMINATION: XR LUMBAR SPINE 2 OR 3 VIEWS (GENERIC), XR THORACIC SPINE 2 VIEWS CLINICAL HISTORY: 67 yo F with h/o osteoporosis, midthoracic and lower back pain radiating to B hips L>R. Please obtain AP and lat flex/ ext Xrays r/o dynamic instability ??and r/o VCF (accession [id number]), r/o vertebral compression fracture (accession [id number]) TECHNIQUE: AP, lateral flexion and extension standing views of the lumbar spine AP and lateral standing views thoracic spine COMPARISON: None FINDINGS: Bone mineralization is diffusely decreased. Right upper quadrant surgical clips. Lungs, soft tissues of mediastinum and abdomen included in the field of view are otherwise normal. Thoracic spine: Vertebral body height is preserved. Mild intervertebral disc height loss with small endplate osteophytes at the upper to midthoracic spine. Upper thoracic kyphosis is slightly exaggerated. Lumbar spine: Vertebral body height is preserved. No displaced fracture or destructive bone lesion. Intervertebral disc height loss with endplate osteophytes and sclerosis is present L3-4 and L5-S1. Facet joint narrowing with osteophytes and sclerosis is present L5-S1. Dynamic lumbar exam: Flexion: 2 mm anterolisthesis L3 on L4 Extension: 2 mm anterolisthesis of L3 on L4 Procedure Note Elida Paez MD - 08/21/2022 EXAMINATION: XR LUMBAR SPINE 2 OR 3 VIEWS (GENERIC), XR THORACIC SPINE 2VIEWS CLINICAL HISTORY: 67 yo F with h/o osteoporosis, midthoracic and lowerback pain radiating to B hips L>R. Please obtain AP and lat flex/ ext Xrays r/o dynamic instability and r/o VCF (accession [id number]), r/o vertebral compression fracture (accession [id number]) TECHNIQUE: AP, lateral flexion and extension standing views of the lumbar spine AP and lateral standing views thoracic spine COMPARISON: None FINDINGS: Bone mineralization is diffusely decreased. Right upper quadrant surgicalclips. Lungs, soft tissues of mediastinum and abdomen included in the field ofview are otherwise normal. Thoracic spine: Vertebral body height is preserved. Mild intervertebraldisc height loss with small endplate osteophytes at the upper to midthoracicspine. Upper thoracic kyphosis is slightly exaggerated. Lumbar spine: Vertebral body height is preserved. No displaced fractureor destructive bone lesion. Intervertebral disc height loss with endplate osteophytes and sclerosis is present L3-4 and L5-S1. Facet joint narrowingwith osteophytes and sclerosis is present L5-S1. Dynamic lumbar exam: Flexion: 2 mm anterolisthesis L3 on L4 Extension: 2 mm anterolisthesis of L3 on L4 IMPRESSION 1. No vertebral body compression fracture or other acute abnormality. 2. Mild upper to mid thoracic spondylosis with slightly exaggeratedkyphosis. 3. Multilevel lumbar spondylosis and facet osteoarthropathy withoutradiographic finding of dynamic instability, using a 4 mm threshold for abnormaltranslation. Thank you for letting us participate in the care of this patient. If youare a health care provider and have any questions regarding this report,please contact the number below. For patients who have questions please contactthe health care aid that requested your imaging first. Electronically signed by: Elida Paez MD, [facility]([phone]), at 08/21/2022 3:36 PM Robert Villela MD IMG DX ORDERABLES * XR Thoracic Spine 2 views (08/21/2022 12:59 PM EDT) Anatomical Region Laterality Modality N/A Digital Radiogra phy Impressions 08/21/2022 3:36 PM EDT 1. No vertebral body compression fracture or other acute abnormality. 2. Mild upper to mid thoracic spondylosis with slightly exaggerated kyphosis. 3. Multilevel lumbar spondylosis and facet osteoarthropathy without radiographic finding of dynamic instability, using a 4 mm threshold for abnormal translation. Thank you for letting us participate in the care of this patient. ??If you are a health care provider and have any questions regarding this report, please contact the number below. ??For patients who have questions please contact the health care aid that requested your imaging first. ? Electronically signed by: Elida Paez MD, [facility] ([phone]), at 08/21/2022 3:36 PM Narrative 08/21/2022 3:36 PM EDT EXAMINATION: XR LUMBAR SPINE 2 OR 3 VIEWS (GENERIC), XR THORACIC SPINE 2 VIEWS CLINICAL HISTORY: 67 yo F with h/o osteoporosis, midthoracic and lower back pain radiating to B hips L>R. Please obtain AP and lat flex/ ext Xrays r/o dynamic instability ??and r/o VCF (accession [id number]), r/o vertebral compression fracture (accession [id number]) TECHNIQUE: AP, lateral flexion and extension standing views of the lumbar spine AP and lateral standing views thoracic spine COMPARISON: None FINDINGS: Bone mineralization is diffusely decreased. Right upper quadrant surgical clips. Lungs, soft tissues of mediastinum and abdomen included in the field of view are otherwise normal. Thoracic spine: Vertebral body height is preserved. Mild intervertebral disc height loss with small endplate osteophytes at the upper to midthoracic spine. Upper thoracic kyphosis is slightly exaggerated. Lumbar spine: Vertebral body height is preserved. No displaced fracture or destructive bone lesion. Intervertebral disc height loss with endplate osteophytes and sclerosis is present L3-4 and L5-S1. Facet joint narrowing with osteophytes and sclerosis is present L5-S1. Dynamic lumbar exam: Flexion: 2 mm anterolisthesis L3 on L4 Extension: 2 mm anterolisthesis of L3 on L4 Procedure Note Elida Paez MD - 08/21/2022 EXAMINATION: XR LUMBAR SPINE 2 OR 3 VIEWS (GENERIC), XR THORACIC SPINE 2VIEWS CLINICAL HISTORY: 67 yo F with h/o osteoporosis, midthoracic and lowerback pain radiating to B hips L>R. Please obtain AP and lat flex/ ext Xrays r/o dynamic instability and r/o VCF (accession [id number]), r/o vertebral compression fracture (accession [id number]) TECHNIQUE: AP, lateral flexion and extension standing views of the lumbar spine AP and lateral standing views thoracic spine COMPARISON: None FINDINGS: Bone mineralization is diffusely decreased. Right upper quadrant surgicalclips. Lungs, soft tissues of mediastinum and abdomen included in the field ofview are otherwise normal. Thoracic spine: Vertebral body height is preserved. Mild intervertebraldisc height loss with small endplate osteophytes at the upper to midthoracicspine. Upper thoracic kyphosis is slightly exaggerated. Lumbar spine: Vertebral body height is preserved. No displaced fractureor destructive bone lesion. Intervertebral disc height loss with endplate osteophytes and sclerosis is present L3-4 and L5-S1. Facet joint narrowingwith osteophytes and sclerosis is present L5-S1. Dynamic lumbar exam: Flexion: 2 mm anterolisthesis L3 on L4 Extension: 2 mm anterolisthesis of L3 on L4 IMPRESSION 1. No vertebral body compression fracture or other acute abnormality. 2. Mild upper to mid thoracic spondylosis with slightly exaggeratedkyphosis. 3. Multilevel lumbar spondylosis and facet osteoarthropathy withoutradiographic finding of dynamic instability, using a 4 mm threshold for abnormaltranslation. Thank you for letting us participate in the care of this patient. If youare a health care provider and have any questions regarding this report,please contact the number below. For patients who have questions please contactthe health care aid that requested your imaging first. Electronically signed by: Elida Paez MD, [facility]([phone]), at 08/21/2022 3:36 PM Robert Villela MD IMG DX ORDERABLES documented in this encounter Visit Diagnoses Diagnosis Other spondylosis with radiculopathy, lumbar region- Primary Sacroiliac joint dysfunction of left side Disorders of sacrum Piriformis syndrome of left side Lesion of sciatic nerve Osteoporosis, post-menopausal Senile osteoporosis Thoracic back pain, unspecified back pain laterality, unspecified chronicity Other spondylosis with radiculopathy, lumbar region documented in this encounter Care Teams Park Ranger Relationship Specialty Start Date End Date Christel Arndt [address] [place] [address] PCP - General Family Medicine 06/28/22 documented as of this encounter
--- OUTSIDE RECORDS SUMMARY | 2023-09-08 13:48 | XMS_ITS | Encounter Summary ---
Author Organization [facility] [place] [address] Care Team Providers Care Towing Pilot Name Role Phone Moira Covarrubias MD Primary Care Provider [phone] Reason for Visit * Allergy Testing (Routine) - Closed Specialty Diagnoses / Procedures Referred By Leidy lemon Referred To Contact Allergy Diagnoses Encounter for allergy testing Darrius Mackay MD [address] [place] [address] [facility] Allergy [address] [place] [phone] Referral ID Status Reason Start Date Expiration Date V isits Requested Visits Authorized [id number] Closed Consult, Test & Treat PCP Updated and/or Approved 03/22/2022 03/22/2023 6 6 Encounter Details Date Type Department Care Team (Late st Contact Info) Description 04/23/2022 9:00 AM EST [place] [address] Mackenzie Cooper MD [facility] [place] [address] Multiple drug allergies Social History Tobacco Use Types Packs/Day Years [...] Sign Reading Time Taken Comments Blood Pressure 154/72 04/23/2022 9:00 AM EST Pulse 84 04/23/2022 9:00 AM EST Temperature - - Respiratory Rate - - Oxygen Saturation 100% 04/23/2022 9:00 AM EST Inhaled Oxygen Concentration - - Weight - - Height - - Body Mass Index - - documented in this encounter Progress Notes * Mackenzie Cooper MD - 04/23/2022 9:00 AM EST Images from the original note were not included. [facility] Section of Allergy and Clinical Immunology Date of Service: 04/23/22 Primary Care Provider: Moira Capone MD Patient Age: 67 y.o. Patient : 1955 Reason for Evaluation: possible medication allergy Historian: Patient Subjective: Patient ID: Ruthann Wolf is a 67 y.o. female who presents for evaluation of possible medicationallergy. Her weight loss sales consultant plans to use fluorescein dye for a fluorescein angiography as part of an evaluation of possible central serous chorioretinopathy. She has not used fluorescein or any other fluorescent dyes in the past. She had a reaction to contrast in the past as part of an evaluation of a miscarriage over 30 years.She cannot recall the type of test done at the time for which contrast was used. Reaction included only itchy eyes. No hypotension. No rash. No respiratory symptoms. She has not had contrast since. She has a history of adverse reactions to multiple medications and foods. She also has a history ofasthma, currently treated only with Singulair and albuterol as needed. Past Medical History: Diagnosis Date ??? Anxiety ??? Asthma ??? Chronic fatigue syndrome ??? Chronic kidney disease ??? Depression ??? GERD (gastroesophageal reflux disease) ??? IBS (irritable bowel syndrome) ??? Insomnia ??? Osteoarthritis ??? Osteoporosis ??? Plantar fasciitis, bilateral Past Surgical History: Procedure Laterality Date ??? CHOLECYSTECTOMY ??? HERNIA REPAIR x 2 ??? HYSTERECTOMY ??? LAPAROSCOPIC APPENDECTOMY ??? SINUS SURGERY ??? TONSILLECTOMY AND ADENOIDECTOMY Outpatient Medications Marked as Taking for the 04/23/22 encounter (Office Visit) with Mackenzie Cooper MD Medication Sig Dispense Refill ??? eplerenone (Inspra) 25 mg Tablet Take 25 mg by mouth. ??? famotidine (Pepcid) 20 mg Tablet Take 20 mg by mouth as needed. ??? fexofenadine (RONALD) 180 mg Tablet Take 180 mg by mouth daily. ??? mirabegron (Myrbetriq) 25 mg Tablet Sustained Release 24 hr Take 1 tablet by mouth daily. 30 tablet 11 ??? montelukast (Singulair) 10 mg Tablet Take [...] nebulization every 4 hours as needed. ??? MULTI-VITAMIN ORAL Take by mouth. ??? acetaminophen (TYLENOL) 500 mg tablet Take by mouth as needed. 1 - 2 tablets = 1,000 mg As needed ??? traZODone (DESYREL) 50 mg tablet Take 100 mg by mouth nightly. ??? epiNEPHrine (EPIPEN) 0.3 mg/0.3 mL injection 0.3 MG/0.3 ML, IM, as directed ??? cetirizine (ZYRTEC) 10 mg tablet 10 MG = 1 Tablet(s), PO, Once daily,PRN Allergies Allergen Reactions ??? Cis Free Text [...] Penicillins CIS - Unknown, CIS - Unknown Family History Problem Relation Age of Onset ??? Asthma Son ??? Allergic Rhinitis Son Social History Tobacco Use ??? Smoking status: Never ??? Smokeless tobacco: Never Vaping Use ??? Vaping Use: Never used Substance Use Topics ??? Alcohol use: Never ??? Drug use: Never Status: Single. Review of Systems: 10 point review of systems reviewed and negative except as above. Environmental History: not applicable Objective: BP 154/72 Pulse 84 SpO2 100% View : No data to display. Wt Readings from Last 3 Encounters: 01/16/22 67.1 kg (148 lb) 07/17/21 64 kg (141 lb) 07/12/19 66.2 kg (146 lb) Physical exam: Constitutional: Awake, alert, no acute distress Head: Normocephalic, atraumatic Eyes: Conjunctiva without injection or icterus, no discharge appreciated, no eyelid edema ENT: No angioedema of tongue or lips, normal pinnae, no anterior nasal drainage observed, no audible stridor Neck: No visible goiter or gross enlargement of neck. Respiratory: No increased work of breathing observed, no coughing observed, speaking in full sentences, normal rate of breathing, no accessory muscle use CVS: Normal color and perfusion, no apparent cyanosis Extremities: No apparent joint deformity observed, normal appearing muscle bulk, normal and symmetric range of motion of visible extremities Skin: No visible rash or lesions, normal color, no mottling Neuro:EOMI, no dysarthria Psych: Normal grooming, appropriate mood and affect, normal volume/quantity, tone of speech, normalthought process and content Review of Medical Records: Ophthalmology note 03/19/2022 Assessment and Plan: Ruthann Wolf is a 67 y.o. female with a history of chronic kidney disease, HTN, GERD, depression, anxiety, IBS, mild asthma, and multiple food and medication allergies/intolerances who presented to the Allergy/Immunology Division for evaluation of a possible allergy to fluorescein dye. She has an upcoming fluorescein angiography planned to evaluate for central serous chorioretinopathy. Cheli never been administered fluorescein dye in the past. She reports a remote history (>30 yearsago) of a reaction to contrast dye which included itchy eyes only. The vast majority of adverse reactions to fluorescein are attributed to non- allergic mechanisms including non-specific mast cell and basophil preparation center coordinator release (non-allergic histamine release) attributed to MRGPRX2 and other receptors and complement activation. Allergy skin tests cannot predict these reactions. Skin testing to detect the presence of IgE antibodies to fluorescein prior to first useis not useful nor indicated in an individual who has never been exposed to the medication in the past. If an individual has never been exposed to a medication, such as fluorescein, in the past, he/she would not yet have had a chance to become sensitized and form IgE antibodies. Verteporfin does not cross-react with any of the medications that Ruthann is currently avoiding due to a possible prior reaction. All questions were answered, and patient expressed understanding of the plan. Thank you for the opportunity to participate in the care of your patient. Ongoing follow-up with the patient's primary care physician is recommended and encouraged. If I can provide any further assistance, please do not hesitate to contact me. Next visit: Return for PRN (as needed). 53 Minutes total spent preparing for the visit, obtaining the history and performing the exam, reviewing records, educating patient/caregivers, coordinating care, and documenting the encounter. Mackenzie Cooper MD [place] [address] [email or web address] documented in this encounter Plan of Treatment Upcoming Encounters Date Type Department Care Team (Late st Contact Info) Description 11/05/2023 10:00 AM EDT [place] [address] Deborah Richardson APRN documented as of this encounter Visit Diagnoses Diagnosis Multiple drug allergies Other drug allergy documented in this encounter Care Teams Towing Pilot Relationship Specialty Start Date End Date Moira Covarrubias MD PCP - General Family Medicine 07/17/21 06/27/22 documented as of this encounter
--- OUTSIDE RECORDS SUMMARY | 2023-09-08 13:48 | XMS_ITS | Encounter Summary ---
Author Organization [facility] [place] [address] Care Team Providers Care Stringer Machine Tender Name Role Phone Moira Covarrubias MD Primary Care Provider [phone] Encounter Details Date Type Department Care Team (Latest Contact Info) Description 05/13/2022 Travel Social History Tobacco Use Types Packs/Day [...] 10:00 AM EDT [place] [address] Deborah Richardson APRN documented as of this encounter Visit Diagnoses Not on filedocumented in this encounter Care Teams Stringer Machine Tender Relationship Specialty Start Date End Date Moira Covarrubias MD PCP - General Family Medicine 07/17/21 06/27/22 documented as of this encounter
--- OUTSIDE RECORDS SUMMARY | 2023-09-08 13:48 | XMS_ITS | Encounter Summary ---
Author Organization [facility] [place] [address] Care Team Providers Care Press Machine Feeder Name Role Phone Moira Covarrubias MD Primary Care Provider [phone] Reason for Referral * Physical Therapy (Routine) - Closed Specialty Diagnoses / Procedures Referred By Leidy lemon Referred To Contact Diagnoses OAB (overactive bladder) Dot Briones APRN [facility] [place] [address] Referral ID Status Reason Start Date Expiration Date V isits Requested Visits Authorized [id number] Closed Evaluate and Treat 07/31/2021 01/27/2022 12 12 Encounter Details Date Type Department Care Team (Latest Contact Info) Description 07/31/2021 9:20 AM EDT TH Visit (TeleHealth) [place] [address] oDt Briones RESTORATION TECHNICIAN [facility] [place] [address] OAB (overactive bladder); Chronic pelvic pain in female; IC (interstitial cystitis); Mixed stress and urge urinary incontinence; History of UTI; Renal scarring Social History Tobacco Use Types Packs/Day Years Used Date Smoking Tobacco: Never Smokeless Tobacco: Never Alcohol Use Standard Drinks/Week Comments Never 0 (1 standard drink = 0.6 oz pur e alcohol) Sex and Gender Information Value Date Recorded Sex Assigned at Not on file Gender Identity Not on file Sexual Orientation Not on file documented as of this encounter Progress Notes * Dot Briones, RAMIN - 07/31/2021 9:20 AM EDT [facility] SECTION OF UROLOGY OUT PATIENT FOLLOW UP VISIT History of Present Illness: Ruthann Wolf is an 66 y.o. year old woman here for follow up of incontinence and pelvic pain. She has CKD followed by Dr. Day in Nephrology. Ruthann Wolf consented to conduct this clinical encounter by telephone. The patient acknowledges that the insurance may be billed for the care provided, similar to an in person appointment. The [place] currently in [place]. Prior to beginning the visit, I confirmed the patients name and date of . I obtained the patient's consent to receiving health care services at [facility] through telemedicine. We discussed the opportunities and limitations of delivering health care services through telemedicine. I told the patient that the telemedicine service is being delivered over a secure connection, except in the event of emergency conditions when such requirements may be waived. [facility] is available for patient's review in [facility]'s patient portal, [facility]. Urologic history: Saw me ~2004. She did have UDS about 5 years earlier (in her paper record most likely) and was dx with IC and stress incontinence at that time. Per my 2004 notes She states that she saw Dr. Irving within the last 5 years and had a cysto with hydrodistention. She thinks she was told she needed a bladder scraping, which she did not want, and opted for no treatment at that time. Things have been fine since then until 12/2020. Urine testin02/2021: pt saw PCP with oab and foul smelling urine. Her UA was normal. She was given the info on urethritis. She is on estrace. 04/30/2021: 10-49 K e.coli-tx with keflex and 0 wbc/hpf 06/08/2021: neg 07/17/2021: UA for Dr. Day showed 1 rbc/hpf and 0 wbc Since I saw her last, she has established care with Dr. Day in Nephrology for CKD. Hx of elevated cre decades ago, had been seen by a plating department helper remotely and US showed renal scarring, but she didn't remember UTIs as a child. She did have UTIs in her 20s. 04/2021: started her on amitriptyline for IC discomfort-cre has been stable on this, and pelvic floor PT. She is really happy to be seeing Dr. Day. She forgot about the PT. She stopped the amitriptyline (not sure why she stopped but she felt she reacted in some way). She still has pelvic pain. She has urgency and leaking. She leaks with urgency and immediacy, as well with coughing, laughing and sneezing. Urgency and frequency are the most bothersome symptoms. Shemight consider another med. She states she had another UTI and finished abx on Friday-PCP just treated Bowels normal per her IBS, some constipation and diarrhea depending on what she eats. She drinks decaf green tea in the am (8 oz) and chamomile in the evening. Water: 32 oz. Chocolate really bothers her, she has sugar as well. She is seeing a shield operator. She has issues withfood and what she can eat. Was on amitriptyline recently for GI issues, she had GERD with this. Takes pantoprazole. She had a renal US recently. She had an MRI recently-no liver cancer. This was done at [place]. Gyne: G 4 P 1 #1 hysterectomy in 2008 for bleeding 3/4 weeks per month-uses estradiol cream 2-3x/week Patient Active Problem List Diagnosis Code ??? CKD (chronic kidney disease) N18.9 ??? HTN (hypertension) I10 ??? GERD (gastroesophageal reflux disease) K21.9 ??? Disequilibrium R42 ??? Mixed stress and urge urinary incontinence N39.46 ??? IC (interstitial cystitis) N30.10 ??? History of UTI Z87.440 ??? Renal scarring N28.89 ??? Acute UTI (urinary tract infection) N39.0 Barretts IC Liver lesion Left thumb arthritis Osteopenia Hyperlipidemia Asthma IBS Fannie T&A Appendectomy Hysterectomy Sinus surgery Endoscopy Hernia repair as an , and then with her fannie, then a year later. Family history:dad had bladder cancer in his 80s. Social history: -trying to divorce, never a smoker, no etoh. 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 ) PVR with bladder scanner by my review: deferred 04/2021: 30-40 cc U/A by my review: deferred LABS: Her labs back in 2011 and 2012 were also 1.37 and 1.24 respectively with GFRs in the 40 range. 1.21 cre 03/20/2021, GFR is 35 she thinks 06/07/2021: cre 1.38, glucose 117, lytes normal, GFR 41 and LFTs normal on amitriptyline. 07/20/2021: 1.41 and GFR 39 Imagin02/2020: MRI without obvious kidney issues Renal US: none on file. Impression: ANALI and OAB-OAB most bothersome symptom IC with bladder symptoms low grade S/p hysterectomy for bleeding. On estrace 3 times a week CKD Intermittent UTIs. Plan/Recommendations: ??? Follow up with Dr. Day as planned ??? OAB is the most bothersome. We discussed meds for urge and she wanted to try mirabegron 25 mg po daily. Teaching done and script faxed. She will monitor BP or let me know if there are issues withthe med ??? She will stay off amitriptyline, she does not like this ??? Referral to [facility] pelvic floor PT timothy matos to fax ??? Hydration with water, moderation of bladder irritants and bowels. ??? Will defer other therapies at this time. ??? Behavioral therapies emphasized. She will hydrate and moderate her bowels, moderate irritants and timed void. Hydrate with water ??? We discussed her ANALI/UUI and pelvic discomfort. She will defer PT unless there is a PFPT at [facility]-she will contact them to see if they do PT/biofeedback. She would like to try amitriptyline 10 mg po nightly for 2-3 days, then 3 times a day. I will talk to her in 3 months via telehealth, sooner with concerns ??? Call with UTI sx and we will do a culture at that time. All questions answered to her apparent satisfaction Dot Vinson APRN Section of Urology [phone] documented in this encounter Plan of Treatment Upcoming Encounters Date Type Department Care Team (Late st Contact Info) Description 11/05/2023 10:00 AM EDT [place] [address] Deborah Richardson APRN Scheduled Referrals Name Type Priority Associated Diagnoses Orde r Schedule Referral to Physical Therapy Outpatient Referral Routine OAB (overactive bladder) Ordered: 07/31/2021 documented as of this encounter Visit Diagnoses Diagnosis OAB (overactive bladder) Hypertonicity of bladder Chronic pelvic pain in female Unspecified symptom associated with female genital organs IC (interstitial cystitis) Chronic interstitial cystitis Mixed stress and urge urinary incontinence Mixed incontinence urge and stress (male)(female) History of UTI Personal history of urinary (tract) infection Renal scarring Other specified disorder of kidney and ureter documented in this encounter Care Teams Press Machine Feeder Relationship Specialty Start Date End Date Moira Covarrubias MD PCP - General Family Medicine 07/17/21 06/27/22 documented as of this encounter
--- OUTSIDE RECORDS SUMMARY | 2023-09-08 13:48 | XMS_ITS | Encounter Summary ---
[place] [address] Care Team Providers Care Kitchen Assistant Name Role Phone Moira Covarrubias MD Primary Care Provider [phone] Encounter Details Date Type Department Care Team (Late st Contact Info) Description 03/04/2022 Telephone [place] [address] Latricia Sena Social History Tobacco Use Types Packs/Day Years [...] 10:00 AM EDT [place] [address] Deboarh Richardson APRN documented as of this encounter Visit Diagnoses Not on filedocumented in this encounter Care Teams Kitchen Assistant Relationship Specialty Start Date End Date Moira Covarrubias MD PCP - General Family Medicine 07/17/21 06/27/22 documented as of this encounter
--- OUTSIDE RECORDS SUMMARY | 2023-09-08 13:48 | XMS_ITS | Encounter Summary ---
Author Organization [facility] [place] [address] Care Team Providers Care Insurance Healthcare Representative Name Role Phone Christel Arndt Primary Care Provider [phone] Encounter Details Date Type Department Care Team (Late st Contact Info) Description 12/17/2022 [place] [id number] Rajwinder Del Cid APRN [facility] [place] [address] Stage 3b chronic kidney disease Social History [...] 10:00 AM EDT [place] [phone] Debroah Richardson APRN Scheduled Orders Name Type Priority Associated Diagnoses Orde r Schedule Phosphorus Lab Routine Stage 3b chronic kidney disease Expected: 12/17/2022, Expires: 12/18/2023 Uric acid Lab Routine Stage 3b chronic kidney disease Expected: 12/17/2022, Expires: 12/18/2023 documented as of this encounter Visit Diagnoses Diagnosis Stage 3b chronic kidney disease documented in this encounter Care Teams Insurance Healthcare Representative Relationship Specialty Start Date End Date Christel Arndt [address] [place] [address] PCP - General Family Medicine 06/28/22 documented as of this encounter
--- OUTSIDE RECORDS SUMMARY | 2023-09-08 13:48 | XMS_ITS | Encounter Summary ---
[place] [address] Care Team Providers Care Quality Assurance Associate Name Role Phone Moira Covarrubias MD Primary Care Provider [phone] Reason for Referral * Allergy Testing (Routine) - Closed Specialty Diagnoses / Procedures Referred By Leidy lemon Referred To Contact Allergy Diagnoses Encounter for allergy testing Darrius Mackay MD [address] [address] [facility] [address] [place] [address] Referral ID Status Reason Start Date Expiration Date V isits Requested Visits Authorized [id number] Closed Consult, Test & Treat PCP Updated and/or Approved 03/22/2022 03/22/2023 6 6 Encounter Details Date Type Department Care Team (Late st Contact Info) Description 03/22/2022 Transcribe Orders eDH Incoming Referrals [phone] Darrius Mackay MD [address] [address] Encounter for allergy testing Social History Tobacco [...] 10:00 AM EDT Office [place] [address] Deborah Richardson APRN Scheduled Referrals Name Type Priority Associated Diagnoses Orde r Schedule Referral to Allergy Outpatient Referral Routine Encounter for allergy testing Ordered: 03/22/2022 documented as of this encounter Visit Diagnoses Diagnosis Encounter for allergy testing Diagnostic skin and sensitization tests documented in this encounter Care Teams Quality Assurance Associate Relationship Specialty Start Date End Date Moira Covarrubias MD PCP - General Family Medicine 07/17/21 06/27/22 documented as of this encounter
--- OUTSIDE RECORDS SUMMARY | 2023-09-08 13:48 | XMS_ITS | Encounter Summary ---
Author Organization [facility] [place] [address] Care Team Providers Care Cross Enterprise Integrator Name Role Phone Christel Arndt Primary Care Provider [phone] Encounter Details Date Type Department Care Team (Latest Contact Info) Description 06/28/2022 Travel Social History Tobacco Use Types Packs/Day [...] 10:00 AM EDT [place] [address] Deborah Richardson APRN documented as of this encounter Visit Diagnoses Not on filedocumented in this encounter Care Teams Cross Enterprise Integrator Relationship Specialty Start Date End Date Christel Arndt [address] [place] [address] PCP - General Family Medicine 06/28/22 documented as of this encounter
--- OUTSIDE RECORDS SUMMARY | 2023-09-08 13:48 | XMS_ITS | Encounter Summary ---
Author Organization [facility] [place] [address] Care Team Providers Care Single Pass Soil Stabilizer Operator Name Role Phone KaiserAmrita Primary Care Provider Encounter Details Date Type Department Care Team (Late st Contact Info) Description 06/12/2021 Notes [place] [address] Dot Briones APRN [facility] [place] [address] Social History Tobacco Use Types Packs/Day Years Used Date Smoking Tobacco: Never Smokeless Tobacco: Never Alcohol Use Standard Drinks/Week Comments Never 0 (1 standard drink = 0.6 oz pur e alcohol) Sex and Gender Information Value Date Recorded Sex Assigned at Not on file Gender Identity Not on file Sexual Orientation Not on file documented as of this encounter Progress Notes * Dot Briones APRN - 06/12/2021 7:12 AM EDT Labs from OSH: 06/07/2021: cre 1.38, glucose 117, lytes normal, GFR 41 and LFTs normal on amitriptyline. Her labs back in 2011 and 2012 were also 1.37 and 1.24 respectively with GFRs in the 40 range. I think we can continue the amitriptyline. I will message her. documented in this encounter Plan of Treatment Upcoming Encounters Date Type Department Care Team (Late st Contact Info) Description 11/05/2023 10:00 AM EDT Office [place] [address] Deborah Richardson APRN documented as of this encounter Visit Diagnoses Not on filedocumented in this encounter Care Teams Single Pass Soil Stabilizer Operator Relationship Specialty Start Date End Date Amrita Saab DO PCP - General Family Medicine 03/16/21 07/16/21 documented as of this encounter
--- OUTSIDE RECORDS SUMMARY | 2023-09-08 13:48 | XMS_ITS | Encounter Summary ---
Author Organization [facility] [place] [address] Care Team Providers Care Electrical Tests Supervisor Name Role Phone Moira Covarrubias MD Primary Care Provider [phone] Encounter Details Date Type Department Care Team (Latest Contact Info) Description 12/15/2021 Travel Social History Tobacco Use Types Packs/Day [...] 10:00 AM EDT [place] [address] Deborah Richardson APRN documented as of this encounter Visit Diagnoses Not on filedocumented in this encounter Care Teams Electrical Tests Supervisor Relationship Specialty Start Date End Date Moira Covarrubias MD PCP - General Family Medicine 07/17/21 06/27/22 documented as of this encounter
--- OUTSIDE RECORDS SUMMARY | 2023-09-08 13:48 | XMS_ITS | Encounter Summary ---
Author Organization [facility] [place] [address] Care Team Providers Care Lens Molding Equipment Operator Name Role Phone JayashreeAryaChristel Primary Care Provider Reason for Visit * Reason Comments Follow-up Back Pain Back pain/Left hip Encounter Details Date Type Department Care Team (Late st Contact Info) Description 10/09/2022 11:00 AM EDT Office Visit [place] [address] Robert Villela MD [facility] [place] [place] [address] Pain in left hip (Primary Dx); Sacroiliac joint dysfunction of left side; Piriformis syndrome of left side; Spondylosis of lumbar region without myelopathy or radiculopathy; Pain in right hip Social History Tobacco Use Types Packs/Day Years [...] Sign Reading Time Taken Comments Blood Pressure 134/73 10/09/2022 10:55 AM EDT Pulse 73 10/09/2022 10:55 AM EDT Temperature - - Respiratory Rate - - Oxygen Saturation 97% 10/09/2022 10:55 AM EDT Inhaled Oxygen Concentration - - Weight 65.8 kg (145 lb) 10/09/2022 10:55 AM EDT Height 171.5 cm (5' 7.5) 10/09/2022 10:55 AM ED T Body Mass Index 22.38 10/09/2022 10:55 AM EDT documented in this encounter Progress Notes * Robert Villela MD - 10/09/2022 11:00 AM EDT [facility] Follow Up Note Name: Ruthann Wolf : 1955 Chief Complaint: Neck, mid-thoracic back, and lower back pain HPI: Ruthann Wolf is a 67 y.o. female with a history of anxiety, depression, IBS, GERD, osteoporosis, chronic fatigue, chronic asthma, and interstitial cystitis who presents with neck, upper thoracic back pain, and lower back pain. She complains mostly of lower back pain as well as thoracic spine discomfort and curious about a possible VCF. Interval History: Patient was last seen here on 08/21/2022 and underwent physical therapy with significant improvement of her symptoms. She has more hip pain L>R, and inquiring if this is lower back or hip joint related. Current VAS: 0/10 Red flag symptoms: Bowel and bladder: No loss of control Saddle anesthesia: denies Weakness: denies Current pain treatments include: PT Chart review: Today I have reviewed available medical information in the patient's medical record at [facility] including relevant provider notes, laboratory work, and imaging. Conservative Treatment: The patient has been actively engaged in Physical therapy at [facility] within thelast 6 months for a duration of 6 weeks or more. A home exercise program is not being performed. History of Interventional Procedures/Surgery: Prior Surgery: No Injection History (date, procedure, %improvement): None Historical Review I have reviewed the patient's past medical, surgical, social, and family history available in the EMR at this time along with supplemented information provided by the patient during the interview process today. No changes were noted from previous visit. Medications and list of allergies: Medications and allergies were reconciled and updated in the electronic medical record. ROS: Positive for above mentioned musculoskeletal and neurological findings on 14 point system review. Denies any other constitutional symptoms, fevers, or weight changes. Physical Exam: Blood pressure 134/73, pulse 73, height 171.5 cm (5' 7.5), weight 65.8 kg (145 lb), SpO2 97 %. Pain: 0 - No pain General: Well-nourished, well-developed, female in no acute distress Respiratory: Non-labored breathing pattern on RA. No respiratory distress Psych: Appropriate affect, answers questions appropriately Musculoskeletal: Inspection - No gross appendicular or axial deformities Palpation - Tender with palpation of the SI joint on the left, Piriformis on the left, and Thoracicparaspinous on the left ROM - Lumbar Flexion , Extension, Lateral rotation is WNL Special tests: - SI Joint provocative testing is Positive on the left via Sacral Thrust, Thigh Thrust, Kalyan's and Tan's finger - Facet loading in [...] extremities. Gait/Station - Antalgic Gait Diagnostic Tests: T- and L-spine Xrays from 08/21/2022 were reviewed: IMPRESSION 1. No vertebral body compression fracture or other acute abnormality. 2. Mild upper to mid thoracic spondylosis with slightly exaggerated kyphosis. 3. Multilevel lumbar spondylosis and facet osteoarthropathy without radiographic finding of dynamic instability, using a 4 mm threshold for abnormal translation. Assessment: Ruthann Wolf is a 67 y.o. female with a PMH including anxiety, depression, IBS, GERD, osteoporosis, chronic fatigue, chronic asthma, and interstitial cystitis who [facility] regarding L>R hip pain. Overall, she has significantly improved with physical therapy. 1. Pain in left hip 2. Sacroiliac joint dysfunction of left side 3. Piriformis syndrome of left side 4. Spondylosis of lumbar region without myelopathy or radiculopathy 5. Pain in right hip Summary of Conservative Treatment Response: The patient [...] Patient will continue current medications. - Imaging: Pelvis/ B hip Xrays ordered to r/o hip OA. Consider L-spine MRI depending on progressionof her symptoms. - Physical Therapy/Modalities/DME: Patient is already actively participating in Physical Therapy. Continue PT. - Interventional/Surgical Procedures: None indicated at this time. - Referrals: No additional referrals at this time. - Activity: As tolerated - Follow-up: As needed Thank you for allowing us the opportunity to participate in Ruthann Wolf's care. Robert Villela MD [facility]ending [facility] [address] [address] / ADD: XR Pelvis and Hip 2 Views Bilateral on 10/09/2022 showed: IMPRESSION Mild osteoarthropathy of both hips. CC: Moira Capone MD [address] [place] [id number] documented in this encounter Plan of Treatment Upcoming Encounters Date Type Department Care Team (Late st Contact Info) Description 11/05/2023 10:00 AM EDT [place] [address] Deborah Richardson APRN documented as of this encounter Results * XR Pelvis and Hip 2 Views Bilateral (10/09/2022 12:05 PM EDT) Anatomical Region Laterality Modality Pelvis, Hip Bilateral Digital Radiogra phy Impressions 10/09/2022 3:16 PM EDT Mild osteoarthropathy of both hips Thank you for letting us participate in the care of this patient. ??If you are a health care provider and have any questions regarding this report, please contact the number below. ??For patients who have questions please contact the health career consultant that requested your imaging first. ? Narrative 10/09/2022 3:16 PM EDT EXAMINATION: XR PELVIS AND HIP 2 VIEWS BILATERAL CLINICAL HISTORY: 67 yo F with L>R hip love, Please r/o OA, entered by ordering service TECHNIQUE: AP pelvis and 2 views each hip 3 view[s] COMPARISON: none FINDINGS: Bones No acute fracture Joints Hip joints-relative preserved joint spaces with osteophytes and subchondral degenerative cysts.. SI joints: Small marginal osteophytes and minimal subchondral sclerosis.No ankylosis or erosions. Pubic symphysis-mildly narrowed joint space with small osteophytes. Soft Tissue No soft tissue air or foreign body detected. ?? Procedure Note Kristin Alaniz MD - 10/09/2022 EXAMINATION: XR PELVIS AND HIP 2 VIEWS BILATERAL CLINICAL HISTORY: 67 yo F with L>R hip love, Please r/o OA, entered by ordering service TECHNIQUE: AP pelvis and 2 views each hip 3 view[s] COMPARISON: none FINDINGS: Bones No acute fracture Joints Hip joints-relative preserved joint spaces with osteophytes andsubchondral degenerative cysts.. SI joints: Small marginal osteophytes and minimal subchondralsclerosis.No ankylosis or erosions. Pubic symphysis-mildly narrowed joint space with small osteophytes. Soft Tissue No soft tissue air or foreign body detected. IMPRESSION Mild osteoarthropathy of both hips Thank you for letting us participate in the care of this patient. If youare a health care provider and have any questions regarding this report,please contact the number below. For patients who have questions please contactthe health career consultant that requested your imaging first. Robert Villela MD IMG DX ORDERABLES documented in this encounter Visit Diagnoses Diagnosis Pain in left hip- Primary Pain in joint, pelvic region and thigh Sacroiliac joint dysfunction of left side Disorders of sacrum Piriformis syndrome of left side Lesion of sciatic nerve Spondylosis of lumbar region without myelopathy or radiculopathy Lumbosacral spondylosis without myelopathy Pain in right hip Pain in joint, pelvic region and thigh Pain in left hip Pain in joint, pelvic region and thigh Pain in right hip Pain in joint, pelvic region and thigh documented in this encounter Care Teams Lens Molding Equipment Operator Relationship Specialty Start Date End Date Christel Arndt [address] [place] [address] PCP - General Family Medicine 06/28/22 documented as of this encounter
--- OUTSIDE RECORDS SUMMARY | 2023-09-08 13:48 | XMS_ITS | Encounter Summary ---
Author Organization [facility] [place] [address] Care Team Providers Care Environmental Health Physician Name Role Phone MilkaSherwinChristel Primary Care Provider Encounter Details Date Type Department Care Team (Latest Contact Info) Description 06/28/2022 2:30 PM EDT Laboratory Appointment Lab [address] [place] [address] Stage 3b chronic kidney disease Social History [...] 10:00 AM EDT [place] [address] Deborah Richardson APRN documented as of this encounter Procedures Procedure Name Priority Date/Time Associated Diagnosis Comments HC CREATININE - NON BLOOD Routine 06/28/2022 3:19 PM EDT Stage 3b chronic kidney disease HC PARATHYROID HORMONE(PTH INTACT Routine 06/28/2022 2:35 PM EDT Stage 3b chronic kidney disease HEMOGRAM Routine 06/28/2022 2:35 PM EDT Stage 3b chronic kidney disease DIFFERENTIAL, AUTOMATED Routine 06/28/2022 2:35 PM EDT Stage 3b chronic kidney disease HC CBC,PLT & AUTO DIFF Routine 06/28/2022 2:35 PM EDT Stage 3b chronic kidney disease HC ALBUMIN, SERUM Routine 06/28/2022 2:3 5 PM EDT Stage 3b chronic kidney disease BASIC METABOLIC PANEL (NON-FASTING) Routine 06/28/2022 2:35 PM EDT Stage 3b chronic kidney disease documented in this encounter Results * U Albumin/Cre Ratio (06/28/2022 3:19 PM EDT) Alb/Cr Ratio, Random Not Calculated 0 - 29 mcg/mg Cr [facility] Comment: Reference Ranges: <30 mcg/mg: [...] [employer] Supplements (2012) 2, 357? 362 U Albumin Conc, Random <3.0 mg/L [facility] U Creatinine 67 mg/dL [facility] Urine 06/28/2022 3:19 PM EDT 06/28/2022 3:35 PM EDT Narrative Resulting Agency Comment Spec In Lab Kwame Day MD URINE ORDERABLES [facility] [place] [address] * Differential, Automated (06/28/2022 2:35 PM EDT) Neutrophils % 54.0 % [facility] Neutr Abs (ANC) 4.08 1.70 - 6.10 x10(3)/[facility] Lymphocytes % 35.3 % [facility] Lymphocytes Abs 2.7 0.9 - 3.2 x10(3)/[facility] Monocytes % 7.8 % [facility] Monocyte Abs 0.6 0.3 - 0.9 x10(3)/[facility] Eosinophils % 2.0 % [facility] Eosinophils Abs 0.2 0.0 - 0.4 x10(3)/[facility] Basophils % 0.5 % [facility] Basophils Abs 0.0 0.0 - 0.1 x10(3)/[facility] Immature Gran % 0.40 % [facility] Comment: Immature granulocytes(IG's)percentage and absolute count will include metamyelocytes, myelocytes, and promyelocytes. Blood smears from CBCs yielding IG's will be scanned manually for concordance. If this scan disagrees with the automated IG or if promyelocytes are noted, a manual differential will be performed. Renetta Gran Abs 0.03 0.00 - 0.04 x10(3)/[facility] Blood 06/28/2022 2:35 PM EDT 06/28/2022 2:45 PM EDT Narrative Resulting Agency Comment Spec In Lab Kwame Day MD HEMATOLOGY ORDERABLE S [facility] [place] [address] * Hemogram (06/28/2022 2:35 PM EDT) WBC 7.6 4.0 - 9.5 x10(3)/[facility] RBC 4.27 4.00 - 5.21 x10(6)/[facility] Hemoglobin 12.2 11.7 - 15.5 g/dL [facility] Hematocrit 37.3 35.7 - 45.8 % [facility] MCV 87.4 82.6 - 94.4 [facility] MCH 28.6 27.1 - 32.[address] [facility] MCHC 32.7 31.7 - 35.0 g/dL [facility] Platelets 215 145 - 357 x10(3)/[facility] RDWSD 41.4 37.0 - 46.0 [facility] RDWCV 13.1 11.5 - 14.1 % [facility] MPV 11.4 7.6 - 12.9 [facility] nRBC % Auto 0.0 % [facility] nRBC Abs Auto 0.000 0.000 - 0.000 x10(3)/[facility] Blood 06/28/2022 2:35 PM EDT 06/28/2022 2:45 PM EDT Narrative Resulting Agency Comment Spec In Lab Kwame Day MD HEMATOLOGY ORDERABLE S Performing Organization Address City/State/[facility] Co de Phone Number [facility] [place] [address] * (ABNORMAL) Basic Metabolic Panel (non-fasting) (06/28/2022 2:35 PM EDT) Glucose Lvl 102 65 - 199 mg/dL [facility] Comment:Diabetes: >=200 mg/d L plus symptoms BUN 18 8 - 18 mg/dL [facility] Creatinine 1.62(H) 0.70 - 1.20 mg/dL [facility] Sodium 140 135 - 145 mmol/L [facility] Potassium 3.7 3.5 - 5.0 mmol/L [facility] Comment: Please note: ??Patients with WBC >100,000 may have falsely elevated Potassium levels. ??For accurate Potassium quantification in these patients send serum separator tube (gold top) for subsequent determinations. ??Contact the Clinical Chemistry Laboratory if there are any questions. Chloride 105 98 - 107 mmol/L [facility] CO2 26 22 - 31 mmol/L [facility] Anion Gap 9 5 - 15 mmol/L [facility] Calcium 9.2 8.5 - 10.5 mg/dL [facility] Estimated GFR 35(L) >=60 mL/min/1. 73 m?? [facility] Comment: This patient's estimated GFR [...] and symptoms in addition to eGFR. Blood 06/28/2022 2:35 PM EDT 06/28/2022 2:45 PM EDT Narrative Resulting Agency Comment Spec In Lab Kwame Day MD CHEMISTRY ORDERABLES [facility] [place] [address] * PTH (06/28/2022 2:35 PM EDT) PTH 44 15 - 65 pg/mL [facility] Blood 06/28/2022 2:35 PM EDT 06/28/2022 2:46 PM EDT Narrative Resulting Agency Comment Spec In Lab Kwame Day MD CHEMISTRY ORDERABLES [facility] [place] [address] * Albumin Level (06/28/2022 2:35 PM EDT) Albumin 4.1 3.2 - 5.2 g/dL [facility] Blood 06/28/2022 2:35 PM EDT 06/28/2022 2:45 PM EDT Narrative Resulting Agency Comment Spec In Lab Kwame Day MD CHEMISTRY ORDERABLES [facility] [place] [address] documented in this encounter Visit Diagnoses Diagnosis Stage 3b chronic kidney disease documented in this encounter Care Teams Environmental Health Physician Relationship Specialty Start Date End Date Christel Arndt [address] [place] [address] PCP - General Family Medicine 06/28/22 documented as of this encounter
--- OUTSIDE RECORDS SUMMARY | 2023-09-08 13:48 | XMS_ITS | Encounter Summary ---
Author Organization [facility] [place] [address] Care Team Providers Care Hotel Associate Name Role Phone Moira Covarrubias MD Primary Care Provider [phone] Encounter Details Date Type Department Care Team (Latest Contact Info) Description 06/22/2022 Travel Social History Tobacco Use Types Packs/Day [...] 10:00 AM EDT [place] [address] Deborah Richardson APRN documented as of this encounter Visit Diagnoses Not on filedocumented in this encounter Care Teams Hotel Associate Relationship Specialty Start Date End Date Moira Covarrubias MD PCP - General Family Medicine 07/17/21 06/27/22 documented as of this encounter
--- OUTSIDE RECORDS SUMMARY | 2023-09-08 13:48 | XMS_ITS | Encounter Summary ---
Author Organization [facility] [place] [address] Care Team Providers Care Clinical Psychologist Licensed Name Role Phone Moira Covarrubias MD Primary Care Provider [phone] Reason for Visit * Reason Onset Date Comments Results 03/01/2022 Encounter Details Date Type Department Care Team (Late st Contact Info) Description 03/01/2022 Telephone [place] [id number] Clinic, Dr Agee Team None Results Social History Tobacco Use Types Packs/Day Years [...] encounter Miscellaneous Notes * Telephone Encounter - Maile Mahajan - 03/04/2022 3:08 PM EST TOV scheduled. * Telephone Encounter - Emiliano Wellington - 03/01/2022 4:27 PM ESTSummary: x-ray results Who is calling?[facility] call back number: [phone] Can we leave a message? yes What study is patient calling about? xrays Per [facility] the study was done: 01/16/2022 Per [facility] the results are final: yes documented in this encounter Plan of Treatment Upcoming Encounters Date Type Department Care Team (Late st Contact Info) Description 11/05/2023 10:00 AM EDT Office [place] [address] Deborah Richardson APRN documented as of this encounter Visit Diagnoses Not on filedocumented in this encounter Care Teams Clinical Psychologist Licensed Relationship Specialty Start Date End Date Moira Covarrubias MD PCP - General Family Medicine 07/17/21 06/27/22 documented as of this encounter
--- OUTSIDE RECORDS SUMMARY | 2023-09-08 13:48 | XMS_ITS | Encounter Summary ---
Author Organization [facility] [place] [address] Care Team Providers Care Web Site Administrator Name Role Phone Moira Covarrubias MD Primary Care Provider [phone] Encounter Details Date Type Department Care Team (Latest Contact Info) Description 01/16/2022 Travel Social History Tobacco Use Types Packs/Day [...] 10:00 AM EDT Office [place] [address] Deborah Richardson APRN documented as of this encounter Visit Diagnoses Not on filedocumented in this encounter Care Teams Web Site Administrator Relationship Specialty Start Date End Date Moira Covarrubias MD PCP - General Family Medicine 07/17/21 06/27/22 documented as of this encounter
--- OUTSIDE RECORDS SUMMARY | 2023-09-08 13:48 | XMS_ITS | Encounter Summary ---
Author Organization [facility] [place] [address] Care Team Providers Care Grief Counselor Name Role Phone Chritsel Arndt Primary Care Provider [phone] Encounter Details Date Type Department Care Team (Latest Contact Info) Description 12/25/2022 10:30 AM EST Office Visit [place] [address] [facility] [place] [address] Stage 3b chronic kidney disease; Primary hypertension [...] Time Taken Comments Blood Pressure 110/67 12/25/2022 10:42 AM EST Taken in [facility] Today Pulse 87 12/25/2022 10:42 AM EST Taken in [facility] Temperature - - Respiratory Rate - - Oxygen Saturation 97% 12/25/2022 10: 42 AM EST TAken in [facility] Inhaled Oxygen Concentration - - Weight 70.9 kg (156 lb 6.4 oz) 12/25/2022 10:42 AM EST Height 171.5 cm (5' 7.52) 12/25/2022 1 0:42 AM EST Body Mass Index 24.12 12/25/2022 10:42 AM EST documented in this encounter Patient Instructions * Patient Instructions* Kwame Day MD - 12/25/2022 10:30 AM EST Can try 1/4 teaspoon baking soda dissolved in water and try sipping it for acid reflux. documented in this encounter Progress Notes * Kwame Day MD - 12/25/2022 10:30 AM EST HYPERTENSION/ NEPHROLOGY PROGRESS NOTE PATIENT: Ruthann Guido : 1955 REASON FOR CONSULTATION: Consulted for renal insufficiency. ID: Ruthann Guido is a very pleasant 67 y.o. female with PMHx significant for central [...] have any hypertension , but is on eplerenone for central serous chorioretinopathy and is being followed up by Dr. Mackay. Interval history: Has been in a lot of stress. Blood pressure controlled. ROS: 4 point review of sytem was [...] Prior to Visit Medication Sig Dispense Refill [DISCONTINUED] magnesium citrate Solution Take by mouth. Indications: 200 mg [DISCONTINUED] UNKNOWN TO PATIENT Take 50 mg by mouth daily. Indications: elpurinon ondansetron ODT (Zofran-ODT) 8 mg disintegrating tablet [DISCONTINUED] Calcium Carbonate 600 mg calcium (1,500 mg) Tablet Take 600 mg by mouth. [DISCONTINUED] Cyanocobalamin-Cobamamide 5,000-100 mcg Tablet, Sublingual B12 5,000 mcg-[address] by sublingual route. carboxymethylcellulose (Refresh Plus) 0.5 % Dropperette Apply to eye daily. [DISCONTINUED] B.animalis,bifid,infantis,long (PROBIOTIC 4X ORAL) Take by mouth. fexofenadine (RONALD) 180 mg Tablet Take 180 mg by mouth daily. [DISCONTINUED] famotidine (Pepcid) 20 mg Tablet Take 20 mg by mouth as needed. montelukast (Singulair) 10 mg Tablet Take 10 mg by mouth daily. TURMERIC ORAL Take 3 capsules by mouth daily. albuteroL (Proventil) 2.5 mg /3 mL (0.083 %) Solution for Nebulization Every 6 hours. pantoprazole EC (Protonix) 40 mg Tablet, Delayed Release (E.C.) Every 12 hours. [DISCONTINUED] cholecalciferol, Vitamin D3, 10 mcg (400 unit) Capsule Vitamin D3 with k2 1000iu and k2 100mcg estradiol (ESTRACE) 0.01 % (0.1 mg/gram) Cream [...] injection 0.3 MG/0.3 ML, IM, as directed No current facility-administered medications on file prior [...] antianxiety. Cis Free Text Allergy multiple foods. [place] Corticosteroids (Glucocorticoids) Cranberry Fruit Dog Dander Erythromycin [...] D2-Soybean] Stone Fruit Other reaction(s): Unknown Tiotropium [place] Tree And Shrub Pollen Other reaction(s): Unknown Tree Nut Peanuts and products/all nuts and oils Tree Nuts [place] Pollen Other reaction(s): Unknown PHYSICAL EXAM: Last value Range last 24 hrs Temperature Temp: -- Heart Rate Heart Rate: [87] Blood Pressure BP: (110)/(67) Respiratory Rate Resp: -- SpO2 SpO2: -- Patient is awake alert did not seem to be in acute distress No jaundice oral mucosa moist Neck- supple trachea central Chest- bilateral air entry present clear to auscultation no wheeze no crepitation CVS-S1-S2 present, no murmur regurgitation gallops. Abdomen-nontender nondistended, bowel sounds present. Extremities-peripheral pulses present, no edema Neuro-patient is awake alert, moving all 4 limbs, motor examination is grossly normal. No asterixis. STUDIES: Labs: CBC: Recent Labs 06/28/22 1435 WBC 7.6 HGB 12.2 PLATELET 215 Chemistry: Recent Labs 06/28/22 1435 NA 140 K 3.7 CL 105 CO2 26 BUN 18 CREATININE 1.62* GLUCOSE 102 Recent Labs 06/28/22 1435 CALCIUM 9.2 LFT's: Recent Labs 06/28/22 1435 ALBUMIN 4.1 Prot/Cre Ratio Date Value Ref Range Status 07/17/2021 <0.2 ratio Final Lab Results Component Value Date TPROTEINPEP 7.0 08/19/2011 ALBELECT 4.41 08/19/2011 Lab Results Component Value Date MICROALBUR <3.0 06/28/2022 No results found for: HA1C Lab Results Component Value Date PTH 44 06/28/2022 CALCIUM 9.2 06/28/2022 PHOS 2.7 10/28/2013 25-OH Vit D Total (ng/mL) Date Value Status 07/20/2021 39 Final IMPRESSION/ RECOMMENDATIONS: Ruthann Wolf is a very pleasant 66 y.o. female with PMHx significant for GERD, Asthma, CKD 3, was previously seen in the nephrology fellow clinic and later by Dr. Myrick in 2013, referred by her her urologist for renal insufficiency. Urine reviewed personally in the nephrology - parrott. #CKD Stage 3B A1 -Etiology of CKD unknown. She is not on any NSAIDs, no hypertension, no diabetes. Her creatinine has been stable with mild fluctuation recently - Urine no active sediment # Electorlytes Sodium normal Potassium within normal limits #Acid Base - not in acidosis. # BMM Calcium normal 25 OH Vit D 39 - wnl PTH 50, within target #Hemodynamics -Blood pressures within normal range. -Ambulatory blood pressure done on 06/28/2022-average 118/64 with a dipping of 19 %. -On eplerenone for central serous chorioretinopathy. #Hemoglobin - At target for his level of CKD Plan/Recommendations: Primary care physician can consider statin because of her CKD. Avoid nephrotoxic medications Please renally dose all meds. Thanks for letting us participate in the care of this patient. A total of 30 minutes was spent for reviewing chart, [id number] encounter, ordering labs/medication,documentation in the chart, and coordinating care. RTC 6 month CC-Christel Blanc-Sherwin Day MD 12/25/2022 Hypertension-Nephrology documented in this encounter Plan of Treatment Upcoming Encounters Date Type Department Care Team (Late st Contact Info) Description 11/05/2023 10:00 AM EDT [place] [address] Deborah Richardson APRN documented as of this encounter Results * Vitamin D, 25-Hydroxy (06/24/2023 9:41 AM EDT) 25-OH Vit D Total 46 21 - 100 ng/mL [facility] 25-OH Vit D Interp Sufficient [facility] Blood 06/24/2023 9:41 AM EDT 06/24/2023 10:01 AM EDT Narrative Resulting Agency Comment Spec In Lab Kwame Day MD CHEMISTRY ORDERABLES [facility] [place] [address] * PTH (06/24/2023 9:41 AM EDT) PTH 49 15 - 65 pg/mL [facility] Blood 06/24/2023 9:41 AM EDT 06/24/2023 10:02 AM EDT Narrative Resulting Agency Comment Spec In Lab Kwame Day MD CHEMISTRY ORDERABLES [facility] [place] [address] * Albumin Level (06/24/2023 9:41 AM EDT) Albumin 4.2 3.2 - 5.2 g/dL [facility] Blood 06/24/2023 9:41 AM EDT 06/24/2023 10:01 AM EDT Narrative Resulting Agency Comment Spec In Lab Kwame Day MD CHEMISTRY ORDERABLES Performing Organization Address [facility] Co de Phone Number [facility] [place] [address] * (ABNORMAL) Basic Metabolic Panel (non-fasting) (06/24/2023 9:41 AM EDT) Glucose Lvl 78 65 - 199 mg/dL [facility] Comment:Diabetes: >=200 mg/d L plus symptoms BUN 18 8 - 18 mg/dL [facility] Creatinine 1.36(H) 0.70 - 1.20 mg/dL [facility] Sodium 145 135 - 145 mmol/L [facility] Potassium 4.5 3.5 - 5.0 mmol/L [facility] Comment: Please note: ??Patients with WBC >100,000 may have falsely elevated Potassium levels. ??For accurate Potassium quantification in these patients send serum separator tube (gold top) for subsequent determinations. ??Contact the Clinical Chemistry Laboratory if there are any questions. Chloride 108(H) 98 - 107 mmol/L [facility] CO2 27 22 - 31 mmol/L [facility] Anion Gap 10 5 - 15 mmol/L [facility] Calcium 9.4 8.5 - 10.5 mg/dL [facility] Estimated GFR 43(L) >=60 mL/min/1. 73 m?? [facility] Comment: This patient's estimated GFR was [...] Day MD CHEMISTRY ORDERABLES Performing Organization Address [facility]/ZIP Co de Phone Number [facility] [place] [address] * Protein/Creatinine Ratio, urine (06/24/2023 9:38 AM EDT) U Creatinine 21 mg/dL [facility] U Protein Ran <6 0 - 12 mg/dL [facility] Prot/Cre Ratio <0.3 ratio [facility] Urine 06/24/2023 9:38 AM EDT 06/24/2023 9:56 AM EDT Narrative Resulting Agency Comment Spec In Lab Kwame Day MD URINE ORDERABLES Performing Organization Address City/[facility]/ZIP Co de Phone Number [facility] [place] [address] * U Albumin/Cre Ratio (06/24/2023 9:38 AM EDT) Alb/Cr Ratio, Random Not Calculated 0 - 29 mcg/mg Cr [facility] Comment: Reference Ranges: <30 mcg/mg: Normal [...] Sharyn Trivedi Albumin Conc, Random <3.0 mg/L [facility] Comment:Corrected from <3.0 mg/L [NA] on 06/24/23 11:05:43 EDT by Sharyn Trivedi Creatinine 21 mg/dL [facility] Urine 06/24/2023 9:38 AM EDT 06/24/2023 9:56 AM EDT Narrative Resulting Agency Comment Spec In Lab Kwame Day MD URINE ORDERABLES Performing Organization Address City/State/[facility] Co de Phone Number [facility] [place] [address] documented in this encounter Visit Diagnoses Diagnosis Stage 3b chronic kidney disease Primary hypertension Unspecified essential hypertension documented in this encounter Care Teams Grief Counselor Relationship Specialty Start Date End Date Christel Arndt [address] [place] [address] PCP - General Family Medicine 06/28/22 documented as of this encounter
--- OUTSIDE RECORDS SUMMARY | 2023-09-08 13:48 | XMS_ITS | Encounter Summary ---
Author Organization [facility] Address [facility] [place] [address] Care Team Providers Care Housecleaner Name Role Phone Moira Covarrubias MD Primary Care Provider [phone] Encounter Details Date Type Department Care Team (Latest Contact Info) Description 01/16/2022 2:17 PM EST - 01/16/2022 11:59 PM [facility] Hospital Encounter XRay at [address] [place] [address] Lonnie Agee MD [facility] [place] [address] Chronic pain of both knees Discharge Disposition: Home Social History Tobacco Use Types Packs/Day Years Used Date Smoking Tobacco: Never Smokeless Tobacco: Never Alcohol Use Standard Drinks/Week Comments Never 0 (1 standard drink = 0.6 oz pur e alcohol) Sex and Gender Information Value Date Recorded Sex Assigned at Not on file Gender Identity Not on file Sexual Orientation Not on file documented as of this encounter Medications at Time of Discharge Medication Sig Dispensed Refills Start Date End Date fexofenadine (RONALD) 180 mg Tablet Take 180 mg by mouth daily. montelukast (Singulair) 10 mg Tablet Take 10 mg by mouth daily. TURMERIC ORAL Take 3 capsules by mouth daily. albuteroL (Proventil) 2.5 mg /3 mL (0.083 %) Solution for Nebulization Every 6 hours. 05/23/2020 pantoprazole EC (Protonix) 40 mg Tablet, Delayed Release (E.C.) Take 40 mg by mouth 2 times daily. 07/04/2020 estradiol (ESTRACE) 0.01 % (0.1 mg/gram) CreamIndications:CKD (chronic kidney disease), stage III Place 2 g vaginally. 3 TIMES A WEEK levalbuterol (XOPENEX) 0.63 mg/3 mL nebulizer solution Take 1 ampule by nebulization every 4 hours as needed. acetaminophen (TYLENOL) 500 mg tablet Take 650 mg by mouth as needed for Pain. 1 - 2 tablets = 1,000 mg As needed 05/29/2010 traZODone (DESYREL) 50 mg tablet Take 100 mg by mouth nightly. epiNEPHrine (EPIPEN) 0.3 mg/0.3 mL injection 0.3 MG/0.3 ML, IM, as directed 03/13/2010 metoclopramide (Reglan) 5 mg tablet Every 8 hours. 07/23/202106/28 polyethylene glycoL (GoLYTELY) 236-22.74-6.74 -5.86 gram Recon Soln 4000 mL 07/23/2021 06/28/2022 predniSONE (Deltasone) 10 mg tablet Take 40 mg po daily x 2 days, 30 mg daily x 2 days, 20 mg x 2 days, 10 mg x 2 days, 5 mg x 2 days. 08/18/2019 06/28/2022 famotidine (Pepcid) 20 mg Tablet Take 20 mg by mouth as needed. 12/25/2022 mirabegron (Myrbetriq) 25 mg Tablet Sustained Release 24 hr Take 1 tablet by mouth daily. 30 tablet 11 07/31/2021 05/13/2022 cyanocobalamin, vitamin B-12, 1,000 mcg/mL Drops Take by mouth every other day. 06/28/2022 cholecalciferol, Vitamin D3, 10 mcg (400 unit) Capsule Vitamin D3 with k2 1000iu and k2 100mcg 12/25/2022 LEVALBUTEROL TARTRATE INHL levalbuterol tartrate as needed 06/28/2022 MULTI-VITAMIN ORAL Take by mouth. 023 cetirizine (ZYRTEC) 10 mg tablet 10 MG = 1 Tablet(s), PO, Once daily,PRN 03/13/2010 05/13/2022 documented as of this encounter Plan of Treatment Upcoming Encounters Date Type Department Care Team (Late st Contact Info) Description 11/05/2023 10:00 AM EDT Office [place] [address] Deborah Richardson APRN documented as of this encounter Procedures Procedure Name Priority Date/Time Associated Diagnosis Comments XR KNEE STANDING ALIGNMENT AP LAT [place] BILAT Routine 01/16/2022 2:36 PM EST Chronic pain of both knees documented in this encounter Results * XR Knee Standing Alignment AP Lat [place] Bilat (01/16/2022 2:36 PM EST) Anatomical Region [...] who have questions please contact the health furnace caretaker that requested your imaging first. ? Electronically signed by: Kristin Alaniz MD, [facility] ([phone]), at 01/16/2022 3:20 PM Narrative 01/16/2022 3:20 [...] patients who have questions please contactthe health furnace caretaker that requested your imaging first. Electronically signed by: Kristin Alaniz MD, [facility]([phone]), at 01/16/2022 3:20 PM Lonnie Agee MD IMG DX ORDERABLES documented in this encounter Visit Diagnoses Diagnosis Chronic pain of both knees documented in this encounter Care Teams Housecleaner Relationship Specialty Start Date End Date Moira Covarrubias MD PCP - General Family Medicine 07/17/21 06/27/22 documented as of this encounter
--- OUTSIDE RECORDS SUMMARY | 2023-09-08 13:48 | XMS_ITS | Encounter Summary ---
Author Organization [facility] [place] [address] Care Team Providers Care Deck Engineer Name Role Phone KaiserElkeAmrita Primary Care Provider Encounter Details Date Type Department Care Team (Late st Contact Info) Description 05/04/2021 [place] [address] Dot Briones APRN [facility] [place] [address] Social History Tobacco Use Types Packs/Day Years [...] encounter Miscellaneous Notes * Telephone Encounter - Dot Briones APRN - 05/04/2021 4:46 PM EDT Will have her take the keflex. Will have her get a repeat urine culture 3 days after antibiotics to ensure the e.coli has resolved. LM that I would send her a message via [employer]. * Telephone Encounter - Violet Aguirre CCMA - 05/04/2021 12:54 PM EDT Ruthann stated that she is having UTI symptoms and would like to take the Keflex. She stated she was concerned this is the second time of having E. Coli in her urine and would like to speak with Dot to see what could be causing this. * Telephone Encounter - Megan Castro - 05/04/2021 12:33 PM EDT PHONE: [phone] Pt returning Violet's phone call. documented in this encounter Plan of Treatment Upcoming Encounters Date Type Department Care Team (Late st Contact Info) Description 11/05/2023 10:00 AM EDT [place] [address] Deborah Richardson APRN documented as of this encounter Visit Diagnoses Not on filedocumented in this encounter Care Teams Deck Engineer Relationship Specialty Start Date End Date Amrita Saab DO PCP - General Family Medicine 03/16/21 07/16/21 documented as of this encounter
--- OUTSIDE RECORDS SUMMARY | 2023-09-08 13:48 | XMS_ITS | Encounter Summary ---
Author Organization [facility] [place] [address] Care Team Providers Care Sap Solution Manager Consultant Name Role Phone MilkaSherwinChristel Primary Care Provider Encounter Details Date Type Department Care Team (Latest Contact Info) Description 06/28/2022 4:00 PM EDT Office Visit [place] [address] Kwame Day MD [facility] [place] [address] Stage 3b chronic kidney disease; Primary hypertension [...] Reading Time Taken Comments Blood Pressure 129/74 06/28/2022 4:26 PM EDT Pulse 78 06/28/2022 4:26 PM EDT Temperature - - Respiratory Rate - - Oxygen Saturation 100% 06/28/2022 4:26 PM EDT Inhaled Oxygen Concentration - - Weight 65.7 kg (144 lb 12.8 oz) 06/28/2022 4:26 PM EDT Height - - Body Mass Index 22.68 01/16/2022 1:36 PM EST documented in this encounter Patient Instructions * Patient Instructions* Kwame Day MD - 06/28/2022 4:00 PM EDT Check blood pressure ( BP) every day in the morning around the same time before breakfast before taking any BP medications. Empty your bladder before your reading. Sit in a comfortable chair with your back supported for at least 5 minutes before your reading. Put both feet flat on the ground and keep your legs uncrossed. Rest your arm with the cuff on a table at chest height. Make sure the blood pressure cuff is snug but not too tight. The cuff should be against your bare skin, not over clothing. Do not talk while your blood pressure is being measured. Keep a log of your blood pressure medication and bring it with you next visit. Can consider Tums 1000 mg daily instead of calcium citrate, if okay with PCP. documented in this encounter Progress Notes * Kwame Day MD - 06/28/2022 4:00 PM EDT HYPERTENSION/ NEPHROLOGY PROGRESS NOTE PATIENT: Ruthann Wolf : 1955 REASON FOR CONSULTATION: Consulted for renal insufficiency. ID: Ruthann Wolf is a very pleasant 67 y.o. female with PMHx significant for GERD, [...] range and does not have any hypertension and is not on any antihypertensive medications. She had dysuria and recent urinary tract infection and follows up with urology. Interval history: Has been in a lot of stress. Blood pressure controlled. ROS: 4 point review of sytem was done, everything was negative except for what was mentioned above. Social History Socioeconomic History ??? Marital status: Spouse name: Not on file ??? Number of children: Not on file ??? Years of education: Not on file ??? Highest education level: Not on file Occupational History ??? Not on file Tobacco Use ??? Smoking status: Never ??? Smokeless tobacco: Never Vaping Use ??? Vaping Use: Never used Substance and Sexual Activity ??? Alcohol use: Never ??? Drug use: Never ??? Sexual activity: Not Currently Partners: Male control/protection: Post-menopausal Other Topics Concern ??? Not on file Social History Narrative ??? Not on file Social Determinants of Health Financial Resource Strain: Not on file Food Insecurity: Not on file Transportation Needs: Not on file Physical Activity: Not on file Housing Stability: Not on file Outpatient medications: Current Outpatient Medications on File Prior to Visit Medication Sig Dispense Refill ??? ondansetron ODT (Zofran-ODT) 8 mg disintegrating tablet ??? Calcium Carbonate 600 mg calcium (1,500 mg) Tablet Take 600 mg by mouth. ??? Cyanocobalamin-Cobamamide 5,000-100 mcg Tablet, Sublingual B12 5,000 mcg-[address] by sublingual route. ??? carboxymethylcellulose (Refresh Plus) 0.5 % Dropperette Apply to eye daily. ??? B.animalis,bifid,infantis,long (PROBIOTIC 4X ORAL) Take by mouth. ??? famotidine (Pepcid) 20 mg Tablet Take 20 mg by mouth as needed. ??? fexofenadine (RONALD) 180 mg Tablet Take 180 mg by mouth daily. ??? montelukast (Singulair) 10 mg Tablet Take 10 mg by mouth nightly. ??? cholecalciferol, Vitamin D3, 10 mcg (400 unit) Capsule Vitamin D3 with k2 1000iu and k2 100mcg ??? albuteroL (Proventil) 2.5 mg /3 mL (0.083 %) Solution for Nebulization Every 6 hours. ??? pantoprazole EC (Protonix) 40 mg Tablet, [...] tablets = 1,000 mg As needed ??? epiNEPHrine (EPIPEN) 0.3 mg/0.3 mL injection 0.3 MG/0.3 ML, IM, as directed ??? [DISCONTINUED] chlorthalidone (Hygroten) 25 mg tablet Take 25 mg by mouth daily. ??? [DISCONTINUED] levoFLOXacin (Levaquin) 750 mg tablet Take 750 mg by mouth daily. ??? [DISCONTINUED] lisinopriL (Zestril) 10 mg tablet Take 10 mg by mouth daily. ??? [DISCONTINUED] alendronate (Fosamax) 70 mg tablet Take 70 mg by mouth. ??? [DISCONTINUED] lansoprazole (Prevacid) [address] capsule lansoprazole 30 mg capsule,delayed release 1 cap BID ??? [DISCONTINUED] metoclopramide (Reglan) 5 mg tablet Every 8 hours. ??? [DISCONTINUED] polyethylene glycoL (GoLYTELY) 236-22.74-6.74 -5.86 gram Recon Soln 4000 mL ??? [DISCONTINUED] predniSONE (Deltasone) 10 mg tablet Take 40 mg po daily x 2 days, 30 mg daily x 2 days, 20 mg x 2 days, 10 mg x 2 days, 5 mg x 2 days. ??? [DISCONTINUED] calcium carb/magnesium ox,carb (JACQUELYN-MAG ORAL) Take by mouth. ??? [DISCONTINUED] eplerenone (Inspra) 25 mg Tablet Take 25 mg by mouth. ??? TURMERIC ORAL Take 2 capsules by mouth daily. ??? [DISCONTINUED] cyanocobalamin, vitamin B-12, 1,000 mcg/mL Drops Take by mouth every other day. ??? [DISCONTINUED] LEVALBUTEROL TARTRATE INHL levalbuterol tartrate as needed ??? [DISCONTINUED] MULTI-VITAMIN ORAL Take by mouth. ??? traZODone (DESYREL) 50 mg tablet Take 100 mg by mouth nightly. No current facility-administered medications on file prior to visit. MEDICATIONS: Allergies Allergen Reactions ??? Cis Free Text Allergy Peanuts, ham, rice, nuts, soy seeds ??? Alendronate Other reaction(s): Constipation, Fullness, GERD - Gastro-esophageal reflux disease, Upset stomach ??? Acetaminophen Other reaction(s): Unknown ??? Animal Dander Other reaction(s): Unknown ??? Birch ??? Cat/Feline Products ??? Chocolate Flavor ??? Cis Free Text Allergy muscle relaxants. ??? Cis Free Text Allergy many antidepressants. ??? Cis Free Text Allergy many antianxiety. ??? Cis Free Text Allergy multiple foods. ??? [place] ??? Corticosteroids (Glucocorticoids) ??? Dog Dander ??? Erythromycin Base ??? Fish Containing Products ??? Fluticasone Propion-Salmeterol Other (See Comments) ??? Fruit Extracts Other reaction(s): Unknown ??? Nahed ??? Gluten Other reaction(s): Unknown ??? Grass Pollen Other reaction(s): Unknown ??? House Dust ??? Hydrocodone Slowed breathing, heartbeat, nervousness, confusion, lightheadedness, restlessness, headache, general feeling of discomfort/illness ??? Hydrocodone-Acetaminophen Other reaction(s): Unknown Slowed breathing, heartbeat, nervousness, confusion, lightheadedness, restlessness, headache, general feeling of discomfort/illness ??? Iodinated Contrast Media ??? Legumes Other reaction(s): Unknown Peas/whitman beans/black beans ??? Levofloxacin ??? Melon ??? Methocarbamol ??? Milk Patient tolerate cheese without issue ??? Milk Based Formulas ??? Mold ??? Nsaids (Non-Steroidal Anti-Inflammatory Drug) ??? Other [Unclassified Drug] Steroids Narcotic pain medications Maintenance Asthma inhaler (disc as well as inhalation) ??? Oxycodone-Acetaminophen Slowed breathing, heartbeat, nervousness, confusion, lightheadedness, restlessness, headache, general feeling of discomfort/illness ??? Peanut ??? Peas Other reaction(s): Unknown ??? Penicillins CIS - Unknown, CIS - Unknown ??? Pork/Porcine Containing Products ??? Prunes ??? Rice Starch Other reaction(s): Unknown ??? Samir ??? Shellfish Containing Products ??? Soy Other reaction(s): Unknown ??? Specialty Vitamins Products [Calcium-Vitamin D2-Soybean] ??? Stone Fruit Other reaction(s): Unknown ??? Tiotropium [place] ??? Tree And Shrub Pollen Other reaction(s): Unknown ??? Tree Nut Peanuts and products/all nuts and oils ??? Tree Nuts ??? [place] Pollen Other reaction(s): Unknown PHYSICAL EXAM: Last value Range last 24 hrs Temperature Temp: -- Heart Rate Heart Rate: -- Blood Pressure BP: ()/() Respiratory Rate Resp: -- SpO2 SpO2: -- [...] Lab Results Component Value Date MICROALBUR <3.0 07/17/2021 No results found for: HA1C Lab Results [...] - wnl PTH 50, within target #Hemodynamics -blood pressures within normal limits. -Discussed and will place a 24 hr monitor to better characterize her blood pressure. #Hemoglobin - At target for his level of CKD Plan/Recommendations: Primary care physician can consider statin because of her CKD. Avoid nephrotoxic medications Please renally dose all meds. Thanks for letting us participate in the care of this patient. A total of 30 minutes was spent for reviewing chart, [id number]-[id number] encounter, ordering labs/medication,documentation in the chart, and coordinating care. RTC 6 month CC-Christel Day MD 06/28/2022 Hypertension-Nephrology * Maria Elena Acosta CMA - 06/28/2022 4:00 PM EDT Per request Dr Kwame Day, 24 hour Blood Pressure monitor put on patient. Patient given instruction about monitor, and will call if has questions/problems. Patient given box with paid UPS label to return monitor via UPS for download of report from monitor. Patient verbalized understanding, and was in agreement with this plan. documented in this encounter Plan of Treatment Upcoming Encounters Date Type Department Care Team (Late st Contact Info) Description 11/05/2023 10:00 AM EDT [place] [id number] Deborah Richardson APRN documented as of this encounter Visit Diagnoses Diagnosis Stage 3b chronic kidney disease Primary hypertension Unspecified essential hypertension documented in this encounter Care Teams Sap Solution Manager Consultant Relationship Specialty Start Date End Date Christel Arndt [address] [place] [address] PCP - General Family Medicine 06/28/22 documented as of this encounter
--- OUTSIDE RECORDS SUMMARY | 2023-09-08 13:48 | XMS_ITS | Encounter Summary ---
Author Organization [facility] Address [facility] [place] [address] Care Team Providers Care Manpower Development Manager Name Role Phone Christel Arndt Primary Care Provider Encounter Details Date Type Department Care Team (Latest Contact Info) Description 10/09/2022 11:42 AM EDT - 10/09/2022 11:59 PM EDT Hospital Encounter XRay at [address] [place] [address] Robert Villela MD [facility] [place] [address] Pain in left hip; Pain in right hip Discharge Disposition: Home Social History Tobacco Use [...] Sig Dispensed Refills Start Date End Date carboxymethylcellulose (Refresh Plus) 0.5 % Dropperette Apply [...] 0.3 MG/0.3 ML, IM, as directed 03/13/2010 magnesium citrate SolutionIndications:200 mg Take by mouth. Indications: 200 mg 12/25/2022 UNKNOWN TO PATIENTIndications:elpur inon Take 50 mg by mouth daily. Indications: elpurinon 12/25/2022 ondansetron ODT (Zofran-ODT) 8 mg disintegrating tablet 04/18/20222023 Calcium Carbonate 600 mg calcium (1,500 mg) Tablet Take 600 mg by mouth. 06/20/20222022 Cyanocobalamin-Cobamamid e 5,000-100 mcg Tablet, Sublingual B12 5,000 mcg-[address] by sublingual route. 12/25/2022 B.animalis,bifid,infanti s,long (PROBIOTIC 4X ORAL) Take by mouth. 12/25/2022 famotidine (Pepcid) 20 mg Tablet Take 20 mg by mouth as needed. 12/25/2022 cholecalciferol, Vitamin D3, 10 mcg (400 unit) Capsule Vitamin D3 with k2 1000iu and k2 100mcg 12/25/2022 documented as of this encounter Plan of Treatment Upcoming Encounters Date Type Department Care Team (Late st Contact Info) Description 11/05/2023 10:00 AM EDT [place] [address] Deborah Richardson APRN documented as of this encounter Procedures Procedure Name Priority Date/Time Associated Diagnosis Comments XR PELVIS AND HIP 2 VIEWS BILATERAL Routine 10/09/2022 12:05 PM EDT Pain in left hip Pain in right hip documented in this encounter Results * XR Pelvis and [...] who have questions please contact the health continuum of care manager that requested your imaging first. ? Narrative [...] patients who have questions please contactthe health continuum of care manager that requested your imaging first. Robert Villela MD IMG DX ORDERABLES documented in this encounter Visit Diagnoses Diagnosis Pain in left hip Pain in joint, pelvic region and thigh Pain in right hip Pain in joint, pelvic region and thigh documented in this encounter Care Teams Manpower Development Manager Relationship Specialty Start Date End Date Christel Arndt [address] [place] [address] PCP - General Family Medicine 06/28/22 documented as of this encounter
--- OUTSIDE RECORDS SUMMARY | 2023-09-08 13:48 | XMS_ITS | Encounter Summary ---
Author Organization [facility] [place] [address] Care Team Providers Care High School Math Teacher Name Role Phone Christel Arndt Primary Care Provider Encounter Details Date Type Department Care Team (Late st Contact Info) Description 07/05/2022 Telephone [place] [address] Kwame Day MD [facility] [address] [place] [address] Social History Tobacco Use Types Packs/Day Years [...] Telephone Encounter - Kwame Day MD - 07/05/2022 4:47 PM EDT Called patient and talked about her ambulatory blood pressure monitoring. 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 documented in this encounter Plan of Treatment Upcoming Encounters Date Type Department Care Team (Late st Contact Info) Description 11/05/2023 10:00 AM EDT [place] [address] Deborah Richardson APRN documented as of this encounter Visit Diagnoses Not on filedocumented in this encounter Care Teams High School Math Teacher Relationship Specialty Start Date End Date Christel Arndt [address] [place] [address] PCP - General Family Medicine 06/28/22 documented as of this encounter
--- OUTSIDE RECORDS SUMMARY | 2023-09-08 13:48 | XMS_ITS | Encounter Summary ---
Author Organization [facility] [place] [address] Care Team Providers Care Angle Shearer Name Role Phone Amrita Saab Primary Care Provider [phone] Encounter Details Date Type Department Care Team (Late st Contact Info) Description 05/17/2021 [place] [address] Dot Briones APRN [facility] [place] [address] Dysuria Social History Tobacco Use Types Packs/Day Years [...] Progress Notes * Dot Briones APRN - 05/17/2021 10:38 AM EDT Pt will do repeat UA/culture at [facility]. Will wait for results. documented in this encounter Plan of Treatment Upcoming Encounters Date Type Department Care Team (Late st Contact Info) Description 11/05/2023 10:00 AM EDT [place] [address] Deborah Richardson APRN documented as of this encounter Visit Diagnoses Diagnosis Dysuria documented in this encounter Care Teams Angle Shearer Relationship Specialty Start Date End Date Amrita Saab DO PCP - General Family Medicine 03/16/21 07/16/21 documented as of this encounter
--- OUTSIDE RECORDS SUMMARY | 2023-09-08 13:48 | XMS_ITS | Encounter Summary ---
Author Organization [facility] [place] [address] Care Team Providers Care Co Founder And Chairman Name Role Phone Amrita Saab DO Primary Care Provider Encounter Details Date Type Department Care Team (Late st Contact Info) Description 05/17/2021 Orders [place] [address] Dot Briones APRN [facility] [place] [address] Stage 3 chronic kidney disease, unspecified whether stage 3a or 3b CKD Social History Tobacco Use Types Packs/Day Years [...] 10:00 AM EDT Office [place] [address] Deborah Richardson APRN documented as of this encounter Visit Diagnoses Diagnosis Stage 3 chronic kidney disease, unspecified whether stage 3a or 3b CKD documented in this encounter Care Teams Co Founder And Chairman Relationship Specialty Start Date End Date Amrita Saab DO PCP - General Family Medicine 03/16/21 07/16/21 documented as of this encounter
--- OUTSIDE RECORDS SUMMARY | 2023-09-08 13:48 | XMS_ITS | Encounter Summary ---
Author Organization [facility] [place] [address] Care Team Providers Care Material Handler Floorperson Name Role Phone Moira Covarrubias MD Primary Care Provider [phone] Encounter Details Date Type Department Care Team (Latest Contact Info) Description 01/09/2022 Travel Social History Tobacco Use Types Packs/Day [...] 10:00 AM EDT [place] [address] Deborah Richardson APRN documented as of this encounter Visit Diagnoses Not on filedocumented in this encounter Care Teams Material Handler Floorperson Relationship Specialty Start Date End Date Moira Covarrubias MD PCP - General Family Medicine 07/17/21 06/27/22 documented as of this encounter
--- OUTSIDE RECORDS SUMMARY | 2023-09-08 13:48 | XMS_ITS | Encounter Summary ---
Author Organization [facility] [place] [address] Care Team Providers Care Radial Drill Press Operator Name Role Phone Amrita Saab DO Primary Care Provider Encounter Details Date Type Department Care Team (Late st Contact Info) Description 05/29/2021 [place] [address] Dot Briones APRN [facility] [place] [address] Mixed stress and urge urinary incontinence Social [...] 10:00 AM EDT [place] [address] Deborah Richardson APRN documented as of this encounter Visit Diagnoses Diagnosis Mixed stress and urge urinary incontinence Mixed incontinence urge and stress (male)(female) documented in this encounter Care Teams Radial Drill Press Operator Relationship Specialty Start Date End Date Amrita Saab DO PCP - General Family Medicine 03/16/21 07/16/21 documented as of this encounter
--- OUTSIDE RECORDS SUMMARY | 2023-09-08 13:48 | XMS_ITS | Encounter Summary ---
Author Organization [facility] [place] [address] Care Team Providers Care Culinary Chef Name Role Phone Christel Arndt Primary Care Provider Encounter Details Date Type Department Care Team (Late st Contact Info) Description 07/03/2022 Notes Only [place] [address] Kwame Day MD [facility] [place] [address] Social History Tobacco Use Types Packs/Day Years Used Date Smoking Tobacco: Never Smokeless Tobacco: Never Alcohol Use Standard Drinks/Week Comments Never 0 (1 standard drink = 0.6 oz pur e alcohol) Sex and Gender Information Value Date Recorded Sex Assigned at Not on file Gender Identity Not on file Sexual Orientation Not on file documented as of this encounter Progress Notes * Kwame Day MD - 07/03/2022 12:05 PM EDT Discussed with DR. Mackay, the shipping assistant. He started Ruthann Cody Betochacho on Eplerenone for cental serous chorioretinopathy, in which MRA have been shown to have modest benefit. Awaiting 24 hr ambulatory blood pressure results. documented in this encounter Plan of Treatment Upcoming Encounters Date Type Department Care Team (Late st Contact Info) Description 11/05/2023 10:00 AM EDT [place] [address] Deborah Richardson APRN documented as of this encounter Visit Diagnoses Not on filedocumented in this encounter Care Teams Culinary Chef Relationship Specialty Start Date End Date Christel Arndt [address] [place] [address] PCP - General Family Medicine 06/28/22 documented as of this encounter
--- OUTSIDE RECORDS SUMMARY | 2023-09-08 13:48 | XMS_ITS | Encounter Summary ---
Author Organization [facility] [place] [address] Care Team Providers Care Sales Route Driver Helper Name Role Phone Christel Arndt Primary Care Provider Encounter Details Date Type Department Care Team (Late st Contact Info) Description 07/02/2022 Telephone Nephrology [place] [address] Kwame Day MD [facility] [place] [address] Social History Tobacco Use Types Packs/Day Years [...] Telephone Encounter - Kwame Day MD - 07/02/2022 9:[address] Carrera office [phone] and asked about target blood pressure and whether he wants thepatient to be on eplerenone. Staff took the message and told me that Dr. Mackay will call me when he has a min. documented in this encounter Plan of Treatment Upcoming Encounters Date Type Department Care Team (Late st Contact Info) Description 11/05/2023 10:00 AM EDT Office [place] [address] Deborah Richardson APRN documented as of this encounter Visit Diagnoses Not on filedocumented in this encounter Care Teams Sales Route Driver Helper Relationship Specialty Start Date End Date Christel Arndt [address] [place] [address] PCP - General Family Medicine 06/28/22 documented as of this encounter
--- OUTSIDE RECORDS SUMMARY | 2023-09-08 13:48 | XMS_ITS | Encounter Summary ---
[place] [address] Care Team Providers Care Concrete Placement Equipment Operator Name Role Phone Moira Covarrubias MD Primary Care Provider [phone] Reason for Referral * Consultation (Routine) - Denied Specialty Diagnoses / Procedures Referred By Leidy lemon Referred To [facility] Diagnoses Pain in thoracic spine needs denial letter Moira Covarrubias MD [address] [place] [address] [facility] [place] [address] Referral ID Status Reason Start Date Expiration Date V isits Requested Visits Authorized [id number] Denied Consult, Test & Treat PCP Updated and/or Approved 01/18/2022 01/18/2023 6 0 Encounter Details Date Type Department Care Team (Latest Contact Info) Description 01/18/2022 Transcribe Orders eDH Incoming Referrals [phone] Moira Covarrubias MD [address] [place] [id number] Pain in thoracic spine Social History [...] 10:00 AM EDT [place] [address] Deborah Richardson APRN Scheduled Referrals Name Type Priority Associated Diagnoses Order Schedule Referral to Pain Management Outpatient Referral Routine Pain in thoracic spine Ordered: 01/18/2022 documented as of this encounter Visit Diagnoses Diagnosis Pain in thoracic spine documented in this encounter Care Teams Concrete Placement Equipment Operator Relationship Specialty Start Date End Date Moira Covarrubias MD PCP - General Family Medicine 07/17/21 06/27/22 documented as of this encounter
--- OUTSIDE RECORDS SUMMARY | 2023-09-08 13:48 | XMS_ITS | Encounter Summary ---
Author Organization [facility] [place] [address] Care Team Providers Care Manager Intermediate Name Role Phone Amrita Saab DO Primary Care Provider Encounter Details Date Type Department Care Team (Late st Contact Info) Description 05/03/2021 [place] [address] Dot Briones APRN [facility] [place] [address] Social History Tobacco Use Types Packs/Day Years [...] 10:00 AM EDT [place] [address] Deborah Richardson APRN documented as of this encounter Visit Diagnoses Not on filedocumented in this encounter Care Teams Manager Intermediate Relationship Specialty Start Date End Date Amrita Saab DO PCP - General Family Medicine 03/16/21 07/16/21 documented as of this encounter
--- OUTSIDE RECORDS SUMMARY | 2023-09-08 13:48 | XMS_ITS | Encounter Summary ---
[facility] [place] [address] Care Team Providers Care Mine Inspector Name Role Phone SaabAmrita Primary Care Provider Encounter Details Date Type Department Care Team (Late st Contact Info) Description 05/04/2021 [place] [address] Violet Aguirre Social History Tobacco Use Types Packs/Day Years [...] encounter Miscellaneous Notes * Telephone Encounter - Violet Aguirre CCMA - 05/04/2021 8:51 AM EDT Per Dot I called Ruthann to see if she was having UTI symptoms, if she is then she should be treated with Keflex 500 mg TID if not then no treatment. I was not able to reach her LVM x2 documented in this encounter Plan of Treatment Upcoming Encounters Date Type Department Care Team (Late st Contact Info) Description 11/05/2023 10:00 AM EDT Office [place] [address] Deborah Richardson APRN documented as of this encounter Visit Diagnoses Not on filedocumented in this encounter Care Teams Mine Inspector Relationship Specialty Start Date End Date Amrita Saab DO PCP - General Family Medicine 03/16/21 07/16/21 documented as of this encounter
--- OUTSIDE RECORDS SUMMARY | 2023-09-08 13:48 | XMS_ITS | Encounter Summary ---
Author Organization [facility] Address [facility] [place] [address] Care Team Providers Care Chemical Etching Processor Name Role Phone Christel Arndt Primary Care Provider Encounter Details Date Type Department Care Team (Latest Contact Info) Description 08/21/2022 12:20 PM EDT - 08/21/2022 11:59 PM EDT Hospital Encounter XRay at [address] [place] [address] Robert Villela MD [facility] [place] [address] Other spondylosis with radiculopathy, lumbar region Discharge Disposition: Home Social History Tobacco Use [...] 10:00 AM [place]T [place] [address] Deborah Richardson APRN documented as of this encounter Procedures Procedure Name Priority Date/Time Associated Diagnosis Comments XR LUMBAR SPINE 2 OR 3 VIEWS Routine 08/21/2022 12:59 PM EDT Other spondylosis with radiculopathy, lumbar region XR THORACIC SPINE 2 VIEWS Routine 08/21/2022 12:59 PM EDT Other spondylosis with radiculopathy, lumbar region documented in this encounter Results * XR Lumbar Spine [...] who have questions please contact the health critical care specialist that requested your imaging first. ? Electronically signed by: Elida Paez MD, [facility] ([phone]), at 08/21/2022 3:36 PM Narrative 08/21/2022 3:36 PM EDT EXAMINATION: XR LUMBAR SPINE 2 OR 3 VIEWS (GENERIC), XR THORACIC SPINE 2 VIEWS CLINICAL HISTORY: 67 yo F with h/o osteoporosis, midthoracic and lower back pain radiating to B hips L>R. Please obtain AP and lat flex/ ext Xrays r/o dynamic instability ??and r/o VCF (accession [id number]), r/o vertebral compression fracture (accession [id number]) TECHNIQUE: AP, lateral flexion and extension standing [...] r/o dynamic instability and r/o VCF (accession [id number]), r/o vertebral compression fracture (accession [id number]) TECHNIQUE: AP, lateral flexion and extension standing [...] patients who have questions please contactthe health critical care specialist that requested your imaging first. Robert Villela MD IMG DX ORDERABLES * [...] who have questions please contact the health critical care specialist that requested your imaging first. ? Electronically signed by: Elida Paez MD, [facility] ([phone]), at 08/21/2022 3:36 PM Narrative 08/21/2022 3:36 PM EDT EXAMINATION: XR LUMBAR SPINE 2 OR 3 VIEWS (GENERIC), XR THORACIC SPINE 2 VIEWS CLINICAL HISTORY: 67 yo F with h/o osteoporosis, midthoracic and lower back pain radiating to B hips L>R. Please obtain AP and lat flex/ ext Xrays r/o dynamic instability ??and r/o VCF (accession [id number]), r/o vertebral compression fracture (accession [id number]) TECHNIQUE: AP, lateral flexion and extension standing [...] r/o dynamic instability and r/o VCF (accession [id number]), r/o vertebral compression fracture (accession [id number]) TECHNIQUE: AP, lateral flexion and extension standing [...] patients who have questions please contactthe health critical care specialist that requested your imaging first. Robert Villela MD IMG DX ORDERABLES documented in this encounter Visit Diagnoses Diagnosis Other spondylosis with radiculopathy, lumbar region documented in this encounter Care Teams Chemical Etching Processor Relationship Specialty Start Date End Date Christel Arndt [address] [place] [address] PCP - General Family Medicine 06/28/22 documented as of this encounter
--- OUTSIDE RECORDS SUMMARY | 2023-09-08 13:48 | XMS_ITS | Encounter Summary ---
Author Organization [facility] [place] [address] Care Team Providers Care Senior Product Marketing Manager Name Role Phone Moira Covarrubias MD Primary Care Provider [phone] Reason for Visit * Consultation (Routine) - Closed Specialty Diagnoses / Procedures Referred By Leidy lemon Referred To Contact Dermatology Diagnoses Encounter for allergy testing Darrius Mackay MD [address] [place] [id number] Mick Contreras MD [facility] [address] [place] [address] Referral ID Status Reason Start Date Expiration Date V isits Requested Visits Authorized [id number] Closed Consult, Test & Treat 03/20/2022 03/20/2023 1 1 Encounter Details Date Type Department Care Team (Late st Contact Info) Description 05/14/2022 11:00 AM EDT TH Visit (TeleHealth) Dermatology at [facility] [address] [place] [address] Mick Contreras MD [facility] [address] [place] [address] Dermatitis Social History Tobacco Use Types Packs/Day Years Used Date Smoking Tobacco: Never Smokeless Tobacco: Never Alcohol Use Standard Drinks/Week Comments Never 0 (1 standard drink = 0.6 oz pur e alcohol) Sex and Gender Information Value Date Recorded Sex Assigned at Not on file Gender Identity Not on file Sexual Orientation Not on file documented as of this encounter Progress Notes * Mick Contreras MD - 05/14/2022 11:00 AM EDT Images from the original note were not included. DEPARTMENT OF DERMATOLOGY [facility] ACD PATCH TESTING Telehealth Provider: Mick Contreras MD FAAD at Dermatology at [facility] Patient's preferred name Ruthann Preferred contact method for results [x]Phone: with detailed results? [x]Yes []No []myD-H []Letter Person patient approves to discuss results: Jayant or Deidre Nicole (Son and Daughter in-law) PAST MEDICAL HISTORY (if blank, patient denies history) Melanoma -- Dysplastic nevi -- SCC -- BCC -- [place] [] cryotherapy [] efudex [] PDT [] Other Relevant Medications [] Immunosuppression [] Transplant [] Oncogenic medication [] Nicotinamide 500mg po bid Other relevant history IBS Depression Renal scarring? FAMILY HISTORY (if blank, patient denies history) Melanoma -- NMSC -- Other relevant history SOCIAL HISTORY Occupation: Retired; watch grandchildren CONTACT DERMATITIS CONSULT Consultation requested by Dr. Darrius Mackay for patch consult. History of Present Illness: Ruthann Wolf is 67 y.o. and here for the following: ?? History of multiple drug, food and environmental allergies and adverse reactions to drugs here for evaluation for possible patch testing to fluorescein in preparation for fluorescein angiography to her right eye for clinically diagnosed central serous chorioretinopathy (CSCR) and consideration of allergic reaction due to cross-reactivity to Verteporfin which may be used in the future for treatment. History of multiple allergies causing mild to severe reactions including anaphylaxis. No previous exposure to fluorescein dye specifically but exposure to contrast dye in the past caused mild symptoms. No previous use of verteporfin. No prior history of eczema or atopic dermatitis but history of asthma and seasonal allergies. History of allergy testing to food and environmental allergens. Chart reviewed and notable for recent evaluation by allergy/immunology Medications: Reviewed in eD-H Allergies: Reviewed in eD-H Skin Examination Well developed, well-nourished in no apparent distress, alert and oriented to time, person, place and situation. Focused examination of the skin of the face significant for the following: Assessment/Exam Findings/Plan Dermatitis No dermatitis History is notable for multiple allergens and adverse reactions to medications but no prior known exposure to fluorescein. No known previous exposure to verteporfin. ?? Do NOT recommend patch testing for fluorescein due to lack of discernible diagnostic efficacy ?? No known cross-reactions of current medications to verteporfin. First, the vast majority of adverse reactions to fluorescein are mild and nonimmunologic. Accordingto a 2019 review of the literature, the reported rates of adverse reactions were overall 0.083-21.69%, into mild (1.24- 17.65%), moderate (0.2-6%), and severe (0.04-0.59%). There were 1:100,000 to 1:220,000 deaths. Second, there is no published report that patch testing for fluorescein will yield a delayed type hypersensitivity reaction which is what a patch test is designed to detect.Review of the literature shows that skin-prick and intradermal tests have been utilized in the pastbut no reports of patch testing. Third, she has had no prior exposure to fluorescein; therefore, she has not undergone a sensitization phase that would make allergy testing useful for predicting a reaction. References Laquita DC, Adria MP, Patricia XS, Cintia AI, Yakov FC, Vanessa KA, Jey AA, Kevan PG. Allergy skin testing in predicting adverse reactions to fluorescein: a prospective clinical study. Acta Ophthalmol. 2010;89(5):480-3. Senait IS, Hu JF. Adverse reactions to fluorescein angiography: A comprehensive review of the literature. Surv Ophthalmol. 2019 Oct-Nov;64(5):679-693. Extensively Counseled: Patch testing's role for determining potential allergens the skin is in contact with that may be contributeto dermatitis, limitations and benefits, reasons for testing for suspected and unsuspected allergens. Reviewed procedure, time course and application method. Explained typical potential allergic reactions as well as potential adverse reactions, including but not limited to common AEs such as itching/irritation/blistering from the tape as well as rare AEs, such as hives, shortness of breath or development of an allergy to something tested. Discussed that this test has not been utilized for this chemical and that the majority of the reactions are none immunologic and given her lack of prior exposure, any result would be highly likely to be negative. Answered all questions. Patient agrees to defer patch testing at this time. Follow-up:Return as needed for suspicious lesion, new or worsening dermatitis. [] Recall placed [] Forwarded to buckle sewer machine [] Patient scheduled before exiting Scribe attestation: Paige Gonzalez, RN has performed the documentation for this encounter in the presence of and acting as a scribe for Mick Contreras MD FAARicardo. I performed the above scribed service and agree with the accuracy of the documentation in this encounter. Reviewed and signed by: MD QUINN Leonard [facility] documented in this encounter Plan of Treatment Upcoming Encounters Date Type Department Care Team (Late st Contact Info) Description 11/05/2023 10:00 AM EDT [place] [address] Deborah Richardson APRN Scheduled Referrals Name Type Priority Associated Diagnoses Order Schedule Referral to Dermatology Outpatient Referral Routine Encounter for allergy testing Ordered: 03/20/2022 documented as of this encounter Visit Diagnoses Diagnosis Dermatitis Contact dermatitis and other eczema, due to unspecified cause documented in this encounter Care Teams Senior Product Marketing Manager Relationship Specialty Start Date End Date Moira Covarrubias MD PCP - General Family Medicine 07/17/21 06/27/22 documented as of this encounter
--- OUTSIDE RECORDS SUMMARY | 2023-09-08 13:48 | XMS_ITS | Encounter Summary ---
Author Organization [facility] [place] [address] Care Team Providers Care Rural Carrier Associate Name Role Phone Christel Arndt Primary Care Provider [phone] Encounter Details Date Type Department Care Team (Latest Contact Info) Description 10/09/2022 Travel Social History Tobacco Use Types Packs/Day [...] 10:00 AM EDT [place] [address] Deborah Richardson APRN documented as of this encounter Visit Diagnoses Not on filedocumented in this encounter Care Teams Rural Carrier Associate Relationship Specialty Start Date End Date Christel Arndt [address] [place] [address] PCP - General Family Medicine 06/28/22 documented as of this encounter
--- OUTSIDE RECORDS SUMMARY | 2023-09-08 13:48 | XMS_ITS | Encounter Summary ---
[place] [address] Care Team Providers Care Broacher Name Role Phone Moira Covarrubias MD Primary Care Provider [phone] Reason for Visit * Consultation (Routine) - Closed Specialty Diagnoses / Procedures Referred By Leidy lemon Referred To Contact Nephrology Diagnoses Stage 3 chronic kidney disease, unspecified whether stage 3a or 3b CKD Renal scarring Dot Briones APRN [facility] [place] [address] [facility] [address] [place] [phone] Referral ID Status Reason Start Date Expiration Date V isits Requested Visits Authorized [id number] Closed Consult, Test & Treat 04/10/2021 04/10/2022 1 1 Encounter Details Date Type Department Care Team (Latest Contact Info) Description 07/17/2021 1:00 PM EDT Office Visit [place] [address] Kwame Day MD [facility] [place] [address] Stage 3b chronic kidney disease Social History [...] Sign Reading Time Taken Comments Blood Pressure 134/74 07/17/2021 12:59 PM EDT Pulse 73 07/17/2021 12:59 PM EDT Temperature - - Respiratory Rate - - Oxygen Saturation - - Inhaled Oxygen Concentration - - Weight 64 kg (141 lb) 07/17/2021 12:59 PM EDT Height 170.2 cm (5' 7) 07/17/2021 12:59 PM EDT Body Mass Index 22.08 07/17/2021 12:59 PM EDT documented in this encounter Progress Notes * Kwame Day MD - 07/17/2021 1:00 PM EDT HYPERTENSION/ NEPHROLOGY CONSULT NOTE PATIENT: Ruthann Wolf : 1955 REASON FOR CONSULTATION: Consulted for renal insufficiency. HPI: Ruthann Wolf is a very pleasant 66 [...] tract infection and follows up with urology. Overall she is doing all right. FH- no kidney disease in family. Personal History- Does not drink alcohol, does not smoke. Review of system- A 10 point review of system including cardiovascular, neurological, pulmonary, gastrointestinal wasdone, everything was negative except for what was mentioned above. Social History Socioeconomic History ??? Marital status: Spouse name: Not on file ??? Number of children: Not on file ??? Years of education: Not on file ??? Highest education level: Not on file Occupational History ??? Not on file Tobacco Use ??? Smoking status: Never Smoker ??? Smokeless tobacco: Never Used Vaping Use ??? Vaping Use: Never used [...] to Visit Medication Sig Dispense Refill ??? montelukast (Singulair) 10 mg Tablet Take [...] Peanuts, ham, rice, nuts, soy seeds ??? Cis Free Text Allergy muscle relaxants. ??? Cis Free Text Allergy many antidepressants. ??? Cis Free Text Allergy many antianxiety. ??? Cis Free Text Allergy multiple foods. ??? Corticosteroids (Glucocorticoids) ??? Erythromycin Base ??? Milk Patient tolerate cheese without issue ??? Milk Based Formulas ??? Penicillins CIS - Unknown, CIS - Unknown PHYSICAL EXAM: Last value Range last 24 hrs Temperature Temp: -- Heart Rate Heart Rate: 73 Heart Rate: -- Blood Pressure BP: 134/74 BP: -- Respiratory Rate Resp: -- SpO2 SpO2: -- [...] No asterixis. STUDIES: Labs: CBC: Recent Labs 07/20/21 1327 WBC 8.6 HGB 12.7 PLATELET 217 Chemistry: Recent Labs 07/20/21 1327 NA 142 K 3.7 CL 107 CO2 23 BUN 19* CREATININE 1.41* GLUCOSE 100 Recent Labs 07/20/21 1327 CALCIUM 9.3 LFT's: No results for input(s): BILITOT, BILIDIR, ALBUMIN, ALKPHOS, ALT, AST in the last 7068 hours. Prot/Cre Ratio Date Value Ref Range Status 07/17/2021 <0.2 ratio Final Lab Results Component Value Date TPROTEINPEP 7.0 08/19/2011 ALBELECT 4.41 08/19/2011 Lab Results Component Value Date MICROALBUR <3.0 07/17/2021 No results found for: HA1C Lab Results Component Value Date PTH 50 07/20/2021 CALCIUM 9.3 07/20/2021 PHOS 2.7 10/28/2013 25-OH Vit D Total (ng/mL) Date Value Status 07/20/2021 39 Final IMPRESSION/ RECOMMENDATIONS: Ruthann Wolf is a very pleasant 66 y.o. female with PMHx significant for GERD, Asthma, CKD 3, was previously seen in the nephrology fellow clinic and later by Dr. Myrick in 2013, referred by her her urologist for renal insufficiency. Urine reviewed personally in the nephrology lab- alexis. #CKD Stage 3B A1 -Etiology of CKD unknown. She is not on any NSAIDs, no hypertension, no diabetes. Her creatinine has been stable for the past 10 years with no albuminuria/ proteinuria. - Urine no active sediment # Electorlytes Sodium normal Potassium within normal limits #Acid Base - not in acidosis. # BMM Calcium normal 25 OH Vit D 39 - wnl PTH 50, within target #Hemodynamics -blood pressures within normal limits. -Advised low sodium diet #Hemoglobin - At target for his level of CKD Plan/Recommendations: Primary care physician can consider statin because of her CKD. Avoid nephrotoxic medications Please renally dose all meds. Thanks for letting us participate in the care of this patient. A total of 60 minutes was spent for reviewing chart, [id number] encounter, ordering labs/medication,documentation in the chart, and coordinating care. RTC 1year CC-MD Kwame Cordova MD 07/22/2021 Hypertension-Nephrology documented in this encounter Plan of Treatment Upcoming Encounters Date Type Department Care Team (Late st Contact Info) Description 11/05/2023 10:00 AM EDT [place] [address] Deborah Richardson APRN documented as of this encounter Procedures Procedure Name Priority Date/Time Associated Diagnosis Comments URINALYSIS MICROSCOPIC EXAM Routine 07/17/2021 2:30 PM EDT HC CREATININE - NON BLOOD Routine 07/17/2021 2:30 PM EDT Stage 3b chronic kidney disease HC CREATININE - NON BLOOD Routine 07/17/2021 2:30 PM EDT Stage 3b chronic kidney disease URINALYSIS WITH REFLEX CULTURE Routine 07/17/2021 2:30 PM EDT documented in this encounter Results * U Albumin/Cre Ratio (06/28/2022 3:19 PM EDT) Alb/Cr Ratio, Random Not Calculated 0 - 29 mcg/mg Cr [facility] Comment: Reference Ranges: <30 [...] 362 U Albumin Conc, Random <3.0 mg/L [facility] U Creatinine 67 mg/dL [facility] Urine 06/28/2022 3:19 PM EDT 06/28/2022 3:35 PM EDT Narrative Resulting Agency Comment Spec In Lab Kwame Day MD URINE ORDERABLES Performing Organization Address City/[facility] Co de Phone Number [facility] [place] [address] * Albumin Level (06/28/2022 2:35 PM EDT) Albumin 4.1 3.2 - 5.2 g/dL [facility] Blood 06/28/2022 2:35 PM EDT 06/28/2022 2:45 PM EDT Narrative Resulting Agency Comment Spec In Lab Kwame Day MD CHEMISTRY ORDERABLES [facility] [place] [address] * PTH (06/28/2022 2:35 PM EDT) Pathologist [facility] PTH 44 15 - 65 pg/mL [facility] Blood 06/28/2022 2:35 PM EDT 06/28/2022 2:46 PM EDT Narrative Resulting Agency Comment Spec In Lab Kwame Day MD CHEMISTRY ORDERABLES Performing Organization Address [facility] Co de Phone Number [facility] [place] [address] * (ABNORMAL) Basic Metabolic Panel (non-fasting) (06/28/2022 2:35 PM EDT) [facility] Glucose Lvl 102 65 - 199 mg/dL [facility] Comment:Diabetes: >=200 mg/d L plus symptoms BUN 18 8 - 18 mg/dL [facility] Creatinine 1.62(H) 0.70 - 1.20 mg/dL [facility] Sodium 140 135 - 145 mmol/L [facility] Potassium 3.7 3.5 - 5.0 mmol/L [facility] Comment: Please note: ??Patients with WBC >100,000 may have falsely elevated Potassium levels. ??For accurate Potassium quantification in these patients send serum separator tube (gold top) for subsequent determinations. ??Contact the Clinical Chemistry Laboratory if there are any questions. Chloride 105 98 - 107 mmol/L [facility] CO2 26 22 - 31 mmol/L [facility] Anion Gap 9 5 - 15 mmol/L [facility] Calcium 9.2 8.5 - 10.5 mg/dL [facility] Estimated GFR 35(L) >=60 mL/min/1. 73 m?? [facility] Comment: This patient's estimated [...] Day MD CHEMISTRY ORDERABLES Performing Organization Address City/[facility]/ZIP Co de Phone Number [facility] [place] [address] * Vitamin D, 25-Hydroxy (07/20/2021 1:27 PM EDT) 25-OH Vit D Total 39 21 - 100 ng/mL [facility] 25-OH Vit D Interp Sufficient [facility] Blood 07/20/2021 1:27 PM EDT 07/20/2021 1:50 PM EDT Narrative Resulting Agency Comment Spec In Lab Kwame Day MD CHEMISTRY ORDERABLES Performing Organization Address City/[facility]/ZIP Co de Phone Number [facility] [place] [address] * PTH (07/20/2021 1:27 PM EDT) PTH 50 15 - 65 pg/mL [facility] Blood 07/20/2021 1:27 PM EDT 07/20/2021 2:15 PM EDT Narrative Resulting Agency Comment Spec In Lab Kwame Day MD CHEMISTRY ORDERABLES [facility] [place] [address] * (ABNORMAL) Basic Metabolic Panel (non-fasting) (07/20/2021 1:27 PM EDT) Glucose Lvl 100 65 - 199 mg/dL [facility] Comment:Diabetes: >=200 mg/d L plus symptoms BUN 19(H) 8 - 18 mg/dL [facility] Creatinine 1.41(H) 0.70 - 1.20 mg/dL [facility] Sodium 142 135 - 145 mmol/L [facility] Potassium 3.7 3.5 - 5.0 mmol/L [facility] Comment: Please note: ??Patients with WBC >100,000 may have falsely elevated Potassium levels. ??For accurate Potassium quantification in these patients send serum separator tube (gold top) for subsequent determinations. ??Contact the Clinical Chemistry Laboratory if there are any questions. Chloride 107 98 - 107 mmol/L [facility] CO2 23 22 - 31 mmol/L [facility] Anion Gap 12 5 - 15 mmol/L [facility] Calcium 9.3 8.5 - 10.5 mg/dL [facility] Estimated GFR 39(L) >=60 mL/min/1. 73 m?? [facility] Comment: This patient? s [...] In Lab Kwame Day MD CHEMISTRY ORDERABLES [facility] [place] [address] * Urinalysis Microscopic Exam (07/17/2021 2:30 PM EDT) RBC UA 1 0 - 4 /HPF [facility] WBC UA 0 0 - 5 /HPF [facility] Clean Catch Urine Urine / Unknown 07/17/2021 2:30 PM EDT 07/17/2021 4:00 PM EDT Narrative Resulting Agency Comment Spec In Lab Kwame Day MD URINE ORDERABLES [facility] [address] [facility] [place] [address] * (ABNORMAL) Urinalysis with reflex Culture (07/17/2021 2:30 PM EDT) Glucose UA Negative Negative mg/dL [facility] Protein UA Negative Negative mg/dL [facility] Bilirubin UA Negative Negative mg/dL [facility] Comment: Clinical correlation required for positive Urine Bilirubin results as false positive may occur with some drugs and drug related products. If a false positive is suspected a serum total bilirubin should be considered if clinically indicated. Urobilinogen UA Normal Normal mg/dL [facility] pH UA 6.5 5.0 - 8.0 [facility] Blood UA Trace(A) Negative mg/dL [facility] Ketones UA Negative Negative mg/dL [facility] Nitrite UA Negative Negative [facility] Leukocytes UA Negative Negative [facility] Appearance UA Clear Clear [facility] Spec [place] UA 1.007 1.005 - 1.030 [facility] Color UA Yellow Yellow [facility] Culture Reflexed No [facility] Clean Catch Urine Urine / Unknown 07/17/2021 2:30 PM EDT 07/17/2021 4:00 PM EDT Narrative Resulting Agency Comment Spec In Lab Kwame Day MD URINE ORDERABLES Performing Organization Address [facility]/ZIP Co de Phone Number [facility] [place] [address] * U Albumin/Cre Ratio (07/17/2021 2:30 PM EDT) Alb/Cr Ratio, Random Not Calculated 0 - 29 mcg/mg Cr [facility] Comment: Reference Ranges: <30 [...] 362 U Albumin Conc, Random <3.0 mg/L [facility] U Creatinine 27 mg/dL [facility] Urine 07/17/2021 2:30 PM EDT 07/17/2021 3:59 PM EDT Narrative Resulting Agency Comment Spec In Lab Kwame Day MD URINE ORDERABLES Performing Organization Address [facility] Co de Phone Number [facility] [place] [address] * Protein/Creatinine Ratio, urine (07/17/2021 2:30 PM EDT) U Creatinine 27 mg/dL [facility] U Protein Ran <6 0 - 12 mg/dL [facility] Prot/Cre Ratio <0.2 ratio [facility] Urine 07/17/2021 2:30 PM EDT 07/17/2021 3:59 PM EDT Narrative Resulting Agency Comment Spec In Lab Kwame Day MD URINE ORDERABLES [facility] [place] [address] documented in this encounter Visit Diagnoses Diagnosis Stage 3b chronic kidney disease documented in this encounter Care Teams Broacher Relationship Specialty Start Date End Date Moira Covarrubias MD PCP - General Family Medicine 07/17/21 06/27/22 documented as of this encounter
--- OUTSIDE RECORDS SUMMARY | 2023-09-08 13:49 | XMS_ITS | Encounter Summary ---
Author Organization [facility] Address [facility] [place] [address] Care Team Providers Care De Ionizer Operator Name Role Phone Kaylene Pinedo MD Primary Care Provider Reason for Visit * Reason Comments Cognitive Decline neuropsych eval Encounter Details Date Type Department Care Team (Late st Contact Info) Description 12/01/2013 8:30 AM EDT Office Visit Psychiatry and Behavioral Health at [facility] [place] [address] Anderson Lema, PhD PSYCHIATRY DEPT. [facility] [place] [address] Altered mental status (Primary Dx); Major depressive disorder, recurrent episode Social History Tobacco Use Types Packs/Day Years Used Date Smoking Tobacco: Never Alcohol Use Standard Drinks/Week Comments Not Asked 0 (1 standard drink = 0.6 oz pur e alcohol) Sex and Gender Information Value Date Recorded Sex Assigned at Not on file Gender Identity Not on file Sexual Orientation Not on file documented as of this encounter Progress Notes * Anderson Lema, PhD - 12/17/2013 5:43 PM EDT CONFIDENTIAL NEUROPSYCHOLOGICAL EVALUATION Patient Name: Ruthann Wolf MR#: [id number] Date of Evaluation: 12/01/2013 Age: 58 years Date of : 1955 Gender: Female Education: 16 Years 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 REASON FOR REFERRAL AND BACKGROUND: This is Ruthann Wolf???s first [facility] clinical neuropsychological evaluation. She was referred in the context of memory concerns and family history of Alzheimer???s disease. As her history is well known to you, it will be only briefly reviewed for our files. Please refer to her medical records for a dditional information. Background information was obtained from Ms. Wolf and her Tai Wolf, who appeared able to give an adequate history, as well as a review of the available medical records. Ms. Wolf reported cognitive problems worsening over the last two years including difficulty learning new information, word finding problems, poor attention, excessive procrastination, and poor decision-making ability particularly at the grocery store, often becoming overwhelmed due to the excessi ve choices. Problems remembering people???s names and recalling details of recent conversations wasalso reported. She has had difficulty retaining employment in the last few years, and she noted that cognitive problems and increased stress may have been related to job loss. Her stated thatthe reason he believes she lost jobs is because of her difficulty using the computers at work. He further indicated that he believes she has not experienced any decline in her abilities, rather her most significant problems are related to worry, perfectionism, and self-criticism. He also noted thatthere is a family history of Alzheimer???s disease and she is very concerned about memory problems and possibly having dementia herself. She also acknowledged that her anxiety likely exacerbates perceived cognitive problems. Activities of daily living were noted to be largely intact. Though she continues to drive, but has problems with directions at times. Medical history is significant for chronic fatigue syndrome, GERD, asthma, hypertension, and chronic kidney disease. She was diagnosed with fibromyalgia in the , but noted that this has resolved. They reported that she has many dietary restrictions/food sensitivities and has developed intolerances to foods due to intestinal problems, making preparing food for her very difficult. Family medical history is significant for Alzheimer???s disease, cancer, diabetes, hypertension, heart disease, and stroke. Psychiatric history is significant for longstanding anxiety and depression, often ???feeling flat,?? which has worsened in the past two years for which she takes medication that is reported to be helpful. However, she reported still having days when she has poor motivation and may watch televisionfor up to 16 hours. Current stressors include worry about getting Alzheimer???s disease/dementia, being unable to get a job since 10/2013 (currently volunteers), and a relative schedule to have a relatively dangerous heart surgery this month (Ms. Wolf reported having [place] [facility] [place] She reported experiencing a ???deep [post-] depression?? during her first marriage and since then has been ???in an out of depression.?? She reported that during her previous marriage, she once stood with a knife to her chest and wanted to kill herself, but did not attempt. She has had therapy in the 1980s and , but has not participated in therapy for the past 13 years. Problems getting enough sleep were endorsed, for which she takes medication. Appetite was reported to be variable, related to her GERD. She denied alcohol, cigarette, and illicit substance use.Family history psychiatric is significant for depression and anxiety. Ms. Wolf reported that her was uncomplicated and she met motor and speech milestones on time. School was reported to be ???ok?? with some difficulty with reading, attending a summer programfor reading in sixth grade, then excelling. 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 and was ???in and out?? of jobs throughout her life. 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 She currently lives with her second ( for five years) and reported that in addition to volunteering, she continues to take ballet lessons, though she has developed difficulty remembering movement sequences and poor balance, which is a change from prior functioning. At the time of this evaluation she was taking Trazodone (50mg daily), fluoxetine (10mg daily), cetirizine (10mg daily), Flovent (110mcg PRN), Estrace cream (PRN), Xopenex (45mcg PRN), and vitamins. BEHAVIORAL OBSERVATIONS: Ms. Wolf was tested at the Neuropsychology Laboratory at [facility]. She appeared alert and was oriented to person, time and place. Gross motor movements were within normal limits. Eye contact was normal. Vision was corrected with glasses and hearing was adequate. Speech during conversation was fluentand of normal quality. Thought-processes were linear and goal-directed. Mood was described as ???wound up?? with congruent, anxious appearance. She appeared somewhat impulsive and frantic at times, causing her to read some words incorrectly due to reading them too quickly even though she was told it was an untimed test. She was very persistent on tasks that were difficult for her, working on them after the time limit had passed (e.g. WAIS-IV Block Design). In general, she was cooperative, appeared motivated during testing, and performed within expectation on performance validity tests. Therefore, the present test results are considered to be an accurate estimate her current level of cognitive functioning. PROCEDURES ADMINISTERED: Clinical Interview; Tyrone Adult Intelligence Scale - 4th edition (WAIS-IV); Brief Visuospatial Memory Test-Revised (BVMT-R); [place] Verbal Learning Test, Second edition (CVLT-II); Elly-KaplanExecutive Function System (D-KEFS, selected subtests); Wisconsin Card Sorting Test (WCST); Johnson Paced Auditory Serial Addition Test (PASAT); Comprehension of Complex Ideational Material (from BDAE; Drummond Diagnostic Aphasia Examination); Drummond Naming Test; Wide Range Achievement Test, 4th edition (WRAT-IV, reading subtest); Grooved Pegboard Test; Thumb-Finger Sequencing; Weldon Depression Inventory-2nd Edition (BDI-II); State- Trait Anxiety Inventory (STAI); Behavior Rating Inventory of Executive Function- Adult (BRIEF-A); Personality Assessment Inventory (LANCE) TEST RESULTS: Note: Descriptors are based on appropriate normative data and the chart below, and are adjusted based on clinical judgment. DESCRIPTOR Percentile Rank DESCRIPTOR Percentile Rank Very Superior 98 and above Extremely Low 1.9 and below Superior 91 to 97 Mildly Impaired 0.38 to 1.9 High Average 75 to 90 Moderately Impaired 0.13 to 0.37 Average 25 to 74 Severely Impaired 0.12 and below Low Average 10 to 24 Borderline 2 to 9 General Intellectual Functioning: Standard/Scaled Scores DESCRIPTORS WAIS-IV: Full Scale IQ 116 High Average Verbal Comprehension Index: 114 High Average Similarities 12 High Average Vocabulary 13 High Average Perceptual Reasoning Index: 104 Average Block Design 9 Average Matrix Reasoning 12 High Average Working Memory Index: 105 Average Digit Span 9 Average Arithmetic 13 High Average Processing Speed Index: 132 Very Superior Symbol Search 19 Very Superior Coding 13 High Average Memory: Brief Visuospatial Memory Test-Revised: Raw Score Trial 1 12 High Average Trial 2 12/29 Superior Trial 3 12/29 High Average Total Recall 29/36 High Average Delayed Recall 01/28 Superior Recognition Hits 6/6 Average False Positive Errors 0 Average California Verbal Learning Test-II: Raw Score Total Trials 1-5 57/80 (6-43-58-12-16) High Average Short-Delay Free Recall 1216 Average Short-Delay Cued Recall 16/16 Superior 20??? Delayed Free Recall 15/16 Superior 20??? Delayed Cued Recall 15/16 High Average Recognition 16/16 Average False Positive Errors 0 High Average Discriminability 4 Superior Forced-Choice Recognition /16 Within Normal Limits Attention/Executive Functioning: Longest Digit(Scaled Score) WAIS-IV Digit Span: Forward 5 (8) Average Backward 4 (10) Average Sequencing 6 (11) Average D-KEFS [place] Making Test: Raw Score (scaled score) Visual Scanning 21 Secs., 0 errors (11) Average Number Sequencing 33 Secs., 0 errors (11) Average Letter Sequencing 33 Secs, 0 error (12) High Average Letter-Number Switching 56 Secs, 0 errors (13) High Average Motor Speed 38 Secs, 0 errors (9) Average Wisconsin Card Sorting Test: Raw Score Categories 6/6 Average Perseverative Errors/total trials Average Failure to Maintain Set 1 Within Normal Limits PASAT: Raw Score 3? 44 Average 2? 29 Low Average Language: Raw Score Sentence Comprehension 12/12 Average Confrontation Naming 59/60 High Average WRAT-4 Reading Recognition Std [id number] Average D -KEFS Verbal Fluency Test: Raw Score (scaled score) Letter Total Correct 62 (18) Very Superior Semantic Total Correct 50 (15) Superior Category Switching Total Correct 15 (12) High Average Category Switching Accuracy 14 (12) High Average Sensory-Motor Functioning: Grooved Pegboard Test: Raw Score Right Hand 59 sec., 1 drop High Average Left Hand 64 sec., 0 drops High Average Thumb-Finger Sequencing: Raw Score Right Hand 10 Average Left Hand 8 Average Self-Report: Raw Score Weldon Depression Inventory-II 23 Moderate State-Trait Anxiety Inventory-State 46 Mild -Trait 62 Severe Self BRIEF-A: T-Score T-Score Behavior Regulation Index (LEIGHTON) 76 49 Elevated/WNL Inhibit 67 47 Elevated/WNL Shift 76 52 Elevated/WNL Emotion control 74 52 Elevated/WNL Self-Monitor 65 40 Elevated/WNL Metacognition Index (TN) 82 48 Elevated/WNL Initiation 93 54 Elevated/WNL Working Memory 89 52 Elevated/WNL Plan/Organize 78 47 Elevated/WNL Task Monitor 77 42 Elevated/WNL Organization of Materials 54 44 WNL/WNL Global Executive Composite (GEC) 81 48 Elevated/WNL SELF-REPORT MEASURES On self-report mood screening measures, Ms. Wolf???s pattern of responses indicated symptoms of depression and general anxiety to be moderate to severe. Anxiety during testing was reported to be mild. On the BRIEF-A, a questionnaire measure of executive functioning in everyday life over the pastmonth, she endorsed clinically significant (T ? 65 ) difficulties with holding information in her mind and mentally manipulating it (working memory), initiating tasks, inhibiting behavior, monitoringher behavior, controlling her emotions, shifting her attention, planning and organization, and monitoring task performance for accuracy. She did not endorse clinically significant difficulty with ability to organize her personal and work space. In contrast, her did not endorse any clinically significant difficulties for executive functions in daily life. On the LANCE, a broad measure of personality and psychopathology, she produced a generally valid profile. Scores indicated significant depressive symptoms, including pessimism, decreased self esteem, and sadness. She may also have loss of interest in previously enjoyable activities as well as excessive tension, moodiness, problems relaxing, and fatigue. Suicidal ideation was endorsed (e.g. ???I have made plans about how to kill myself?? and ???loss of interest in life.?? ) Individuals with similar profiles often also struggle with significant anxiety and worry. Overall, the results suggest a person with a critical self- concept, who struggles with depressive symptoms and psychosocial stressors. REVIEW OF TEST RESULTS: Intellectual Functioning: Overall intellectual functioning, as measured by the WAIS-IV, was estimated to be in the high average range with high average range core verbal abilities and average range perceptual abilities. Working memory was in the average range and processing speed was in the very superior range. She demonstrated a strength on a speeded visual discrimination task, scoring in the very superior range. Baseline level of intellectual functioning, based on a word reading test and demographic characteristics, was estimated to be at least in the average to high average range, suggesting commensurate intellectual functioning with estimated baseline abilities. Memory: Learning of a word list was in the high average range overall with a quick learning curve across the five learning trials, recalling 6/16 words on the first learning trial (average range) and16/16 words by the fifth learning trial (superior range). Immediate free recall was in the average range whereas delayed free recall was in the superior range, indicating benefit from time to consolidate the information. Performance improved with cueing. Recognition of the words after a delay was inthe average range with no false positive errors. Performance was in high average range for learningand memory for visual information with average range recognition memory. Attention and Executive Functions: Basic auditory attention and working memory were intact. Speed of visual scanning, motor speed, and visuomotor sequencing was in the average to high average range. Cognitive flexibility for visual and verbal information was intact. Auditory working memory was in the average range initially and in the low average range when the task sped up. On observation, she became overwhelmed with the rapid presentation on the stimuli at times. Problem solving was in the average range with a limited number of perseverative errors. Visuospatial / Visuoconstruction Skills: Three-dimensional block construction was in the average range. Untimed nonverbal reasoning was in the high average range. Language Skills: Performance on a task of comprehending nuanced language in brief questions and short stories was in the average range. Expressive language was in the average to high average range for word reading and object naming. Rapid word generation to phonemic and semantic cues was in the superior to very superior range. Sensory-Motor Skills: Fine motor coordination and speed on the Grooved Pegboard test and on thumb finger sequencing was intact bilaterally. SUMMARY AND RECOMMENDATIONS: Ms. Wolf showed a relative weakness on one test, apparently becoming overwhelmed with rapid stimuli presentation during an auditory working memory task. No other weaknesses or jamir impairments were noted. These findings were observed in the context of estimated high average range intellectual abilities that appear consistent with estimates of baseline abilities. On a questionnaire measure, she endorsed significant problems with all measured aspects of executive function in daily life (her did not endorse such problems), severe symptoms of general anxiety, and moderate symptoms of depression. On a personality inventory, she endorsed depressive symptoms, anxiety as well as a critical self-concept. Overall, the present pattern of findings indicates generally intact neuropsychological functioning,with many of her scores in above average ranges relative to age-peers. Given that she endorsed significantly more problems with her cognition than is evident on testing, it is likely that she either m isperceives her abilities or struggles with affective distress daily to such a degree that it negatively impacts her cognition. Stress regarding family history of Alzheimer???s disease and worry thatshe may have dementia may also contribute to perceived cognitive problems. At this time, there is no evidence of any significant decline in abilities or any evidence of impaired functioning. In particular, there is no evidence suggestive of a pre-dementia condition, especially since her performanceon memory measures was generally in average to above average ranges. Feedback about the results of this evaluation may help alleviate concerns regarding the magnitude and extent of her perceived cognitive deficits. Recommendations are as follows: While she performed well on testing, given her extent of concern in the context of her academic andoccupational history, an MRI of the brain may be considered to inform differential diagnosis. Based on her results, she might benefit from individual therapy for situational distress regarding problems with work/getting a job. One type of evidence-based treatment for those struggling with a history of depression/anxiety is Cognitive Behavioral Therapy (CBT). Given her sensitivity to sugar and food intolerance and family history of diabetes, getting her blood sugar checked is recommended. She may also benefit from consultation with a aviation neuropsychologist. Regular exercise may benefit physical as well as mental health and she is encouraged to continue engaging in a regular ballet and other exercises. Given her report of difficulties with multitasking and concentration day to day, it will be important for her to approach tasks and new learning in an organized manner. Taking extra time to organize information to be remembered in a personally meaningful way at work and at home will likely prove helpful. She reported problems remembering appointments and paying bills, therefore, it is recommended that she keep a calendar or electronic device for daily reminders. Though she did not evidence impairments in working memory on formal testing, she reported difficulty with working memory in her daily life on a questionnaire measure. She should try to complete one task at a time (avoiding multi-tasking). Taking additional time at the beginning of the day to plan and prioritize activities will be helpful. In addition, breaking tasks into simpler component parts, creating a checklist of these parts, and limiting distractions while completing tasks will be helpful. Thank you for referring Ms. Wolf for evaluation. Please contact us at [phone] if we can be of further assistance. Li Arnold, Ph.D. Anderson Lema, Ph.D. Post-Doctoral Fellow Clinical Neuropsychologist Neuropsychology Machine MarkerDirector Televisionspeech clinician This report was prepared by Li Arnold, Ph.D., Postdoctoral Fellow in Neuropsychology, under the supervision of Anderson Lema, Ph.D. documented in this encounter Plan of Treatment Upcoming Encounters Date Type Department Care Team (Late st Contact Info) Description 11/05/2023 10:00 AM EDT [place] [address] Deborah Richardson APRN documented as of this encounter Visit Diagnoses Diagnosis Altered mental status- Primary Major depressive disorder, recurrent episode Major depressive disorder, recurrent episode, unspecified documented in this encounter Care Teams De Ionizer Operator Relationship Specialty Start Date End Date Kaylene Pinedo MD [address] [place] [address] PCP - General 09/21/13 02/21/21 documented as of this encounter
--- OUTSIDE RECORDS SUMMARY | 2023-09-08 13:49 | XMS_ITS | Encounter Summary ---
Author Organization [facility] [place] [address] Care Team Providers Care Senior Pastor Name Role Phone Kaylene Pinedo MD Primary Care Provider [phone] Encounter Details Date Type Department Care Team (Late st Contact Info) Description 01/16/2021 12:05 AM EST Ancillary Procedure [place] [address] Dot Briones APRN [facility] [place] [address] Social History Tobacco Use Types Packs/Day Years [...] 10:00 AM EDT [place] [address] Deborah Richardson APRN documented as of this encounter Procedures Procedure Name Priority Date/Time Associated Diagnosis Comments FILM LIBRARY STORAGE ONLY ULTRASOUND STUDY Routine 01/16/2021 12:05 AM EST documented in this encounter Results * Film Library- Storage Only Ultrasound Study (01/16/2021 12:05 AM EST) Narrative EDY - 04/24/2021 7:30 PM EST This exam is auto-finalizing. It's purpose is for storage only. Dot Vinson APRN IMG FILM LIBRAR Y ORDERABLES Performing Organization Address City/State/[facility] Co de Phone Number [place], [place] documented in this encounter Visit Diagnoses Not on filedocumented in this encounter Care Teams Senior Pastor Relationship Specialty Start Date End Date Kaylene Pinedo MD [address] [place] [address] PCP - General 09/21/13 02/21/21 documented as of this encounter
--- OUTSIDE RECORDS SUMMARY | 2023-09-08 13:49 | XMS_ITS | Encounter Summary ---
Author Organization [facility] [place] [address] Care Team Providers Care Commodities Manager Name Role Phone Marianna Garcia MD Primary Care Provider [phone] Reason for Visit * Reason Comments Abdominal Pain Encounter Details Date Type Department Care Team (Late st Contact Info) Description 06/05/2010 3:30 PM EDT [place] [address] Marcio Franklin MD [facility] DR GASTROENTEROLOGY [place] [address] Dyspepsia (Primary Dx) Discharge Disposition: Home Social History Tobacco Use [...] Sign Reading Time Taken Comments Blood Pressure 148/78 06/05/2010 3:44 PM EDT Pulse - - Temperature - - Respiratory Rate - - Oxygen Saturation - - Inhaled Oxygen Concentration - - Weight 65.5 kg (144 lb 8 oz) 06/05/2010 3:44 PM EDT Height 171.5 cm (5' 7.5) 06/05/2010 3:44 PM EDT Body Mass Index 22.3 06/05/2010 3:44 PM EDT documented in this encounter Plan of Treatment Upcoming Encounters Date Type Department Care Team (Late st Contact Info) Description 11/05/2023 10:00 AM EDT [place] [address] Deborah Richardson APRN documented as of this encounter Visit Diagnoses Diagnosis Dyspepsia- Primary Dyspepsia and other specified disorders of function of stomach documented in this encounter Care Teams Commodities Manager Relationship Specialty Start Date End Date Marianna Garcia MD [facility] [address] [place] [address] [place] [address] PCP - General 01/09/10 09/20/13 documented as of this encounter
--- OUTSIDE RECORDS SUMMARY | 2023-09-08 13:49 | XMS_ITS | Encounter Summary ---
[facility] [place] [place] [address] Care Team Providers Care Slug Press Operator Name Role Phone Kaylene Pinedo MD Primary Care Provider [phone] Encounter Details Date Type Department Care Team (Late st Contact Info) Description 07/12/2019 8:30 PM EDT Ancillary Procedure [place] [address] Social History Tobacco Use Types Packs/Day Years [...] 10:00 AM EDT [place] [address] Deborah Richardson APRN documented as of this encounter Procedures Procedure Name Priority Date/Time Associated Diagnosis Comments FILM LIBRARY STORAGE ONLY CT HEAD STAT 07/12/2019 8:29 PM EDT documented in this encounter Results * Film Library- Storage Only CT Head (07/12/2019 8:29 PM EDT) Narrative [facility] - 07/12/2019 8:29 PM EDT This exam is auto-finalizing. It's purpose is for storage only. Morro Sena III, MD IMG FILM LIBRARY ORDERABLES [place], [place] documented in this encounter Visit Diagnoses Not on filedocumented in this encounter Care Teams Slug Press Operator Relationship Specialty Start Date End Date Kaylene Pinedo MD [address] [place] [address] PCP - General 09/21/13 02/21/21 documented as of this encounter
--- OUTSIDE RECORDS SUMMARY | 2023-09-08 13:49 | XMS_ITS | Encounter Summary ---
Author Organization [facility] [place] [address] Care Team Providers Care Welding Lead Burner Name Role Phone Marianna Garcia MD Primary Care Provider [phone] Encounter Details Date Type Department Care Team (Latest Contact Info) Description 05/23/2010 9:06 AM EDT - 05/23/2010 11:59 PM EDT Hospital Encounter [place] [address] Marcio Franklin MD [facility] DR GASTROENTER[place] [address] Discharge Disposition: Home Social History Tobacco Use Types Packs/Day Years Used Date Smoking Tobacco: Never Assessed Sex and Gender Information Value Date Recorded Sex Assigned at Not on file Gender Identity Not on file Sexual Orientation Not on file documented as of this encounter Medications at Time of Discharge Medication Sig Dispensed Refills Start Date End Date epiNEPHrine (EPIPEN) 0.3 mg/0.3 mL injection 0.3 MG/0.3 ML, IM, as directed 03/13/2010 cetirizine (ZYRTEC) 10 mg tablet 10 MG = 1 Tablet(s), PO, Once daily,PRN 03/13/2010 05/13/2022 documented as of this encounter Plan of Treatment Upcoming Encounters Date Type Department Care Team (Late st Contact Info) Description 11/05/2023 10:00 AM EDT [place] [address] Deborah Richardson APRN documented as of this encounter Visit Diagnoses Not on filedocumented in this encounter Care Teams Welding Lead Burner Relationship Specialty Start Date End Date Marianna Garcia MD [facility] [address] [place] [address] [place] [address] PCP - General 01/09/10 09/20/13 documented as of this encounter
--- OUTSIDE RECORDS SUMMARY | 2023-09-08 13:49 | XMS_ITS | Encounter Summary ---
Author Organization [facility] [place] [address] Care Team Providers Care Taxi Dancer Name Role Phone Kaylene Pinedo MD Primary Care Provider [phone] Encounter Details Date Type Department Care Team (Late Contact Info) Description 04/24/2015 Telephone Nephrology [place] [id number] [address] [place] Social History Tobacco Use Types Packs/Day Years Used Date Smoking Tobacco: Never Alcohol Use Standard Drinks/Week Comments Not Asked 0 (1 standard drink = 0.6 oz pur e alcohol) Sex and Gender Information Value Date Recorded Sex Assigned at Not on file Gender Identity Not on file Sexual Orientation Not on file documented as of this encounter Miscellaneous Notes * Telephone Encounter - [facility] - 04/24/2015 10:21 AM EST Left message with patient tocall back and make follow up appointment . documented in this encounter Plan of Treatment Upcoming Encounters Date Type Department Care Team (Late st Contact Info) Description 11/05/2023 10:00 AM EDT Office [place] [phone] Deborah Richardson APRN documented as of this encounter Visit Diagnoses Not on filedocumented in this encounter Care Teams Taxi Dancer Relationship Specialty Start Date End Date Kaylene Pinedo MD [address] [place] [address] PCP - General 09/21/13 02/21/21 documented as of this encounter
--- OUTSIDE RECORDS SUMMARY | 2023-09-08 13:49 | XMS_ITS | Encounter Summary ---
Author Organization [facility] [place] [address] Care Team Providers Care Mold Designer Name Role Phone SaabAmrita Primary Care Provider Encounter Details Date Type Department Care Team (Late st Contact Info) Description 04/30/2021 2:00 PM EDT [place] [address] Dot Briones APRN [facility] [place] [address] Acute UTI (urinary tract infection); Dysuria Social History Tobacco Use Types Packs/Day [...] Sign Reading Time Taken Comments Blood Pressure 122/76 04/30/2021 2:05 PM EDT Pulse 76 04/30/2021 2:05 PM EDT Temperature - - Respiratory Rate - - Oxygen Saturation - - Inhaled Oxygen Concentration - - Weight - - Height - - Body Mass Index - - documented in this encounter Patient Instructions * Patient Instructions* Dot Briones APRN - 04/30/2021 2:29 PM EDT Call Dot around 05/31 to ensure she knows how you are doing on the amitriptyline. Start amitriptyline at bedtime with one tablet only for 2-3 days. If you tolerate that, then increase to 10 mg tablet three times per day. Call with issues. documented in this encounter Progress Notes * Dot Briones APRN - 04/30/2021 2:00 PM EDT [facility] SECTION OF UROLOGY OUT PATIENT FOLLOW UP VISIT History of Present Illness: Ruthann Wolf is an 66 y.o. year old woman here for pelvic exam for her incontinence and pelvic pain. 02/2021: pt saw PCP with oab and foul smelling urine. Her UA was normal. She was given the info on urethritis. She is on estrace. Today, Ruthann Wolf presents with the above symptoms since 12/2020. The urine has not had infection in 12/2020. She was found to have an infection in 01/2021, which helped her symptoms, but they did not resolve. She has CKD and does not see a Film Spooler. She is most concerned about the fact that she has no risk factors for CKD, but she did have an elevated cre decades ago. She was then seenby a gasoline plant operator, and an US in the past showed kidney scarring. She doesn't remember childhood UTIs. As an adult, she did have UTIs in her 20s. She saw me ~2004. She did have UDS about 5 years earlier (in her paper record most likely) and was dx with IC and stress incontinence at that time. Per my 2004 notes She states that she saw Dr. Irving within the last 5 years and had a cysto with hydrodistention. She thinks she was told she neededa bladder scraping, which she did not want, and opted for no treatment at that time. Things have been fine since then until 12/2020. Since 12/2020, she has had urgency and bladder pain. She has been on amitriptyline in the past for IC. She can tolerate that. She worries about damaging her kidneys more, that is her primary concern today. She is not seeing a gasoline plant operator but wants to. She does leak with urgency and with coughing, laughing and sneezing. She has urge and immediacy. She leaks drops. No pads recently. No gross hematuria. No fever/chills. Pale yellow urine. No flank pain. Bowels normal per her IBS, some constipation and diarrhea depending on what she eats. She drinks decaf green tea in the am and chamomile in the evening. Cider-off this now but was drinking a lot. Water: 32 oz Chocolate really bothers her, she has sugar as well. She is seeing a tubing tester. She has issues withfood and what she can eat. No motrin with kidney issues. Only tylenol The only change she notes is left flank pain. She has flank pressure and bladder pressure. Was on amitriptyline recently for GI issues, she had GERD with this. Takes pantoprazole. She had a renal US recently. She had an MRI recently-no liver cancer. This was done at [facility]. Gyne: G 4 P 1 #1 hysterectomy [...] of UTI Z87.440 ??? Renal scarring N28.89 Barretts IC Liver lesion Left thumb arthritis Osteopenia Hyperlipidemia Asthma IBS Fannie T&A Appendectomy Hysterectomy Sinus surgery Endoscopy Hernia repair as an , and then with her fannie, then a year later. Family history:dad had bladder cancer in his 80s. Social history: -trying to divorce, never a smoker, no etoh. 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 Abdomen: soft, NT, ND with no palpable masses. no CVAT. no hernias noted Pelvic: The external genitalia are normal with normal hair distribution and no lesions. The meatus is in a normal location with a [...] bladder pressure or flank pain she feels. Rectal: deferred Skin: warm and dry, no lesions Musculoskeletal: symmetric without gait abnormalities Neurologic: no obvious abnormalities Psych: mood appropriate PVR with bladder scanner by my review: 04/2021: 30-40 cc U/A by my review: rbc-UA and culture sent 1.21 cre 03/20/2021, GFR is 35 she thinks Imagin02/2020: MRI without obvious kidney issues Renal US: none on file. Impression: ANALI and OAB IC with bladder symptoms low grade S/p hysterectomy for bleeding. On estrace twice weekly-3 times a week CKD Plan/Recommendations: ??? Call nephrology for her CKD as referral is in. She will stop there to see if she can schedule today ??? Behavioral therapies emphasized. She will hydrate and moderate her bowels, moderate irritants and timed void. Hydrate with water ??? We discussed her ANALI/UUI and pelvic discomfort. She will defer PT unless there is a PFPT at [facility]-she will contact them to see if they do PT/biofeedback. She would like to try amitriptyline 10 mg po nightly for 2-3 days, then 3 times a day. I will talk to her in 3 months via telehealth, sooner with concerns ??? cmp in 2 weeks on amitriptyline, she is very worried about her kidneys All questions answered to her apparent satisfaction Dot Vinson APRN Section of Urology [phone] documented in this encounter Plan of Treatment Upcoming Encounters Date Type Department Care Team (Late st Contact Info) Description 11/05/2023 10:00 AM EDT [place] [address] Deborah Richardson APRN documented as of this encounter Procedures Procedure Name Priority Date/Time Associated Diagnosis Comments HC URINALYSIS ROUTINE Routine 04/30/2021 2:10 PM EDT Acute UTI (urinary tract infection) HC URINE CULTURE Routine 04/30/2021 2:10 PM EDT Acute UTI (urinary tract infection) documented in this encounter Results * (ABNORMAL) Urine culture Clean Catch Urine (04/30/2021 2:10 PM EDT) Urine Culture 10,000-49,000 cfu/ml Escherichia coli 1,000-9,000 cfu/ml Normal mucosal claire (A) [facility] Organism Escherichia coli(A) [facility] Clean Catch Urine 04/30/2021 2:10 PM EDT 04/30/2021 3:39 PM EDT Narrative Resulting Agency Comment Spec In Lab Organism Antibiotic Method Susceptibility Escherichia coli Amikacin VITEK 2 METHOD Sensitive Escherichia coli Ampicillin + Sulbactam VITEK 2 METHOD Sensitive Escherichia coli Aztreonam VITEK 2 METHOD Sensitive Escherichia coli Cefazolin VITEK 2 METHOD Sensitive Escherichia coli Ceftazidime VITEK 2 METHOD <=1: Sensitive Escherichia coli Ceftriaxone VITEK 2 METHOD Sensitive Escherichia coli Ertapenem VITEK 2 METHOD Sensitive Escherichia coli Gentamicin VITEK 2 METHOD Sensitive Escherichia coli Levofloxacin VITEK 2 METHOD Sensitive Comment: Levofloxacin and Ciprofloxacin may not adequately treat infections in critically ill patients even when isolates test susceptible in the laboratory. Contact Infectious Disease before using in critically ill patients. Escherichia coli Meropenem VITEK 2 METHOD <=0.25: Sensitive Escherichia coli Nitrofurantoin VITEK 2 METHOD Sensitive Escherichia coli Piperacillin/Tazobactam VITEK 2 METHO D <=4: Sensitive Escherichia coli Tetracycline VITEK 2 METHOD Sensitive Escherichia coli Tobramycin VITEK 2 METHOD Sensitive Escherichia coli Trimethoprim/Sulfa VITEK 2 METHOD Sensitive Dot Cheryl Karel BRASS CHASER MICROBIOLOGY - GENERAL ORDERABLES [facility] [place] [address] * (ABNORMAL) _Urinalysis with microscopic (04/30/2021 2:10 PM EDT) Glucose UA Negative Negative mg/dL [...] clinically indicated. Urobilinogen UA Normal Normal mg/dL [facility] pH UA 7.5 5.0 - 8.0 [facility] Blood UA Small(A) Negative mg/dL [facility] Ketones UA Negative Negative mg/dL [facility] Nitrite UA Negative Negative [facility] Leukocytes UA Negative Negative mcL [facility] Appearance UA Clear Clear [facility] Spec [place] UA 1.008 1.005 - 1.030 [facility] Color UA Yellow Yellow [facility] RBC UA 1 0 - 4 /HPF [facility] WBC UA 0 0 - 5 /HPF [facility] Squam Epith UA 2 <=4 /HPF [facility] Urine 04/30/2021 2:10 PM EDT 04/30/2021 3:44 PM EDT Narrative Resulting Agency Comment Spec In Lab Dot Vinson APRN URINE ORDERABLE S [facility] [place] [address] documented in this encounter Visit Diagnoses Diagnosis Acute UTI (urinary tract infection) Urinary tract infection, site not specified Dysuria documented in this encounter Care Teams Mold Designer Relationship Specialty Start Date End Date Amrita Saab DO PCP - General Family Medicine 03/16/21 07/16/21 documented as of this encounter
--- OUTSIDE RECORDS SUMMARY | 2023-09-08 13:49 | XMS_ITS | Encounter Summary ---
Author Organization [facility] [place] [address] Care Team Providers Care Leather Carver Name Role Phone Christel Arndt Primary Care Provider Encounter Details Date Type Department Care Team (Late st Contact Info) Description 05/16/2010 Orders Only [place] [address] Marcio Franklin MD [facility] [place] [address] Social History Tobacco Use Types Packs/Day Years [...] 10:00 AM EDT Office [place] [address] Deborah Richardson APRN documented as of this encounter Procedures Procedure Name Priority Date/Time Associated Diagnosis Comments SURGICAL PATHOLOGY REPORT Routine 05/16/2010 3:48 PM EDT documented in this encounter Results * Surgical Pathology Report (05/16/2010 3:48 PM EDT) Surgical Pathology Report -[id number] ? Location: 4T The signing pathologist has (i) examined the relevant preparation(s) for the specimen(s) and (ii) rendered or confirmed the diagnosis(es). . ?Pathology Surgical Pathology Final Report Clinical Information Specimen Submitted: A - Small intestine, duodenum B - Stomach, random C - Esophagus, body Clinical History: Jar 1 - duodenum - ? celiac Jar 2 - stomach - ? H. pylori Jar 3 - mid esophagus - ? EOE Clinical Diagnosis: Dyspepsia Gross Description A - Labeled/Fixativ e: Small intestine duodenum, formalin. Qty/Size/Weight : ?Five, averaging 0.3 x 0.2 x 0.2 cm. Tissue Description: ?? Soft, king tissues. Sections/Proces sing: ??(T1) B - Labeled/Fixativ e: Stomach random, formalin. Qty/Size/Weight : ?Three, ranging from 0.2 cm to 0.4 cm in ?greatest dimension. Tissue Description: ?? Soft, king tissues. Sections/Proces sing: ??(T1) C - Labeled/Fixativ e: esophagus body, formalin. Qty/Size/Weight : ?Two, averaging 0.2 x 0.1 x 0.1 cm. Tissue Description: ?? Soft, king tissues. Sections/Proces sing: ??(T1) ??vms/SHB Microscopic Description Slides reviewed, microscopic description not recorded. Diagnosis A - Duodenum, biopsy: ? Duodenal mucosa with normal villous architecture, no diagnostic ?abnormality recognized. B - Stomach, biopsy: ?Gastric corpus and antral mucosa within normal limits. C - Mid esophagus, biopsy: ? Esophageal squamous mucosa within normal limits. . Diagnosis CR-0 05/23/10 BJM 05/23/10 Verified by: ? Richie CADE, Nic ?Pathologist ?(Electronic Signature) The attending pathologist whose signature appears on this report has reviewed all diagnostic slides and has edited the gross and/or microscopic portion of the report in rendering the final pathologic diagnosis. LAXMI MERCADO 05/16/2010 3:48 PM EDT Marcio Franklin MD PATHOLOGY/CYTOLOGY O RDERAPARESH [facility] documented in this encounter Visit Diagnoses Not on filedocumented in this encounter Care Teams Leather Carver Relationship Specialty Start Date End Date Christel Arndt [address] [place] [address] PCP - General Family Medicine 06/28/22 documented as of this encounter
--- OUTSIDE RECORDS SUMMARY | 2023-09-08 13:49 | XMS_ITS | Encounter Summary ---
Author Organization [facility] [place] [address] Care Team Providers Care Yard Hand Name Role Phone Marianna Garcia MD Primary Care Provider [phone] Encounter Details Date Type Department Care Team (Latest Contact Info) Description 05/16/2010 12:30 PM EDT - 05/16/2010 6:30 PM EDT Hospital Encounter [place] [address] Caitlyn Hoang MD [facility] [place] [address] Discharge Disposition: Home Social History Tobacco Use [...] AM EDT Office [place] [address] Deborah Richardson APRN documented as of this encounter Procedures Procedure Name Priority Date/Time Associated Diagnosis Comments SURGICAL PATHOLOGY REPORT Routine 05/16/2010 3:48 PM EDT UPPER GI ENDOSCOPY Routine 05/16/2010 1: 38 PM EDT documented in this encounter Results * SURGICAL PATHOLOGY REPORT (05/16/2010 3:48 PM EDT) Surgical Pathology Report ? [facility] ? Provider: ?? CAITLYN HOANG ? Pt. Name: ?? RUTHANN RUFFIN ? Acc #: ?[id number] ?Pt. ? Col Date: ?? 05/16/2010 ? /Sex: ?1955,(6 4 ? years),Female ? Rec Date: ?? 05/16/2010 ? LOC: ?4T ? SURGICAL PATHOLOGY ? ---Pathologic Diagnosis--- ? A - Duodenum, biopsy: ? Duodenal mucosa with normal villous architecture, no diagnostic ? abnormality recognized. ? B - Stomach, biopsy: ? Gastric corpus and antral mucosa within normal limits. ? C - Mid esophagus, biopsy: ? Esophageal squamous mucosa within normal limits. ? CR-0 ? 05/23/10 ? BJM ? 05/23/10 Verified by: ? Richie CADE, Nic ? Pathologist ? (Electronic Signature) ? The attending pathologist whose signature appears on this report has ? reviewed all diagnostic slides and has edited the gross and/or ? microscopic portion of the report in rendering the final pathologic ? diagnosis. ? ---Microscopic Description--- ? Slides reviewed, microscopic description not recorded. ? ---Gross Description--- ? A - Labeled/Fixativ e: Small intestine duodenum, formalin. ? Qty/Size/Weight : ?Five, averaging 0.3 x 0.2 x 0.2 cm. ? Tissue Description: ?? Soft, king tissues. ? Sections/Proces sing: ??(T1) ? B - Labeled/Fixativ e: Stomach random, formalin. ? Qty/Size/Weight : ?Three, ranging from 0.2 cm to 0.4 cm in ? greatest dimension. ? Tissue Description: ?? Soft, king tissues. ? Sections/Proces sing: ??(T1) ? C - Labeled/Fixativ e: esophagus body, formalin. ? Qty/Size/Weight : ?Two, averaging 0.2 x 0.1 x 0.1 cm. ? Tissue Description: ?? Soft, king tissues. ? Sections/Proces sing: ??(T1) ??vms/SHB ? [facility] ? Provider: ?? CAITLYN HOANG ? Pt. Name: ?? RUTHANN RUFFIN ? Acc #: ?[id number] ?Pt. ? Col Date: ?? 05/16/2010 ? /Sex: ?1955,([age] ? years),Female ? Rec Date: ?? 05/16/2010 ? LOC: ?4T ? SURGICAL PATHOLOGY ? ---Clinical Information--- ? Specimen Submitted: ? A - Small intestine, duodenum ? B - Stomach, random ? C - Esophagus, body ? Clinical History: ? Jar 1 - duodenum - ? celiac ? Jar 2 - stomach - ? H. pylori ? Jar 3 - mid esophagus - ? EOE ? Clinical Diagnosis: ? Dyspepsia LAXMI MERCADO 05/16/2010 3:48 PM EDT Caitlyn Hoang MD PATHOLOGY/CYTOLOGY O RDERABLES [facility] * UPPER GI ENDOSCOPY (05/16/2010 1:38 PM EDT) UPPER GI ENDOSCOPY [facility] Endoscopy Patient Name: Ruthann Ruffin ? Procedure Date: 05/16/2010 01:38:29 PM ? Date of : 1955 ? Age: 55 ? Procedure: ? Upper GI endoscopy Indications: ? Dyspepsia, Dysphagia, reflux ? symptoms, globus; possible food ? allergies Patient Profile: ? see consult note Providers: ? Caitlyn Hoang MD, Bear Price, ? RN, Sadaf Galicia, Tire Regrooving Machine Operator Referring : ?Marianna Garcia MD Requesting Provider: Dr. Garcia Medicines: ? Midazolam 3 mg IV, Fentanyl 100 ? micrograms IV, Diphenhydramine 25 mg ? IV, Benzocaine spray Complications: ? No immediate complications. Procedure: ? The procedure, indications, benefits, ? risks and alternatives were explained ? to the patient. Specifically ? discussed were potential ? complications including, but not ? limited to, bleeding, perforation, ? infection, missing a cancer, and ? adverse medication reactions. The ? Endoscope was introduced through the ? mouth, and advanced to the third part ? of duodenum. The patient tolerated ? the procedure well. The upper GI ? endoscopy was accomplished without ? difficulty. ? Findings: ? The examined duodenum was normal. Biopsies were taken ? with a cold forceps for histology from throughout the ? duodenum to rule out celiac disease, inflammation, ? eosinophilia (jar 1). Patchy mildly erythematous ? mucosa without bleeding was found in the gastric ? antrum. Biopsies were taken with a cold forceps for ? histology from throughout the stomach to rule out h. ? pylori (jar 2). The gastric body was normal. The ? gastric fundus was normal on retroflexion. The Z-line ? was regular and was found 40 cm from the incisors. ? The middle third of the esophagus was normal. ? Biopsies were taken with a cold forceps for histology ? to rule out eosinophilic esophagitis due to history ? of dysphagia (jar 3). The upper third of the ? esophagus was normal. ? - The area around the vocal cords appeared grossly ? normal. ? Impression: ?- Normal examined duodenum. This was ? biopsied. ? - Gastric mucosal abnormality ? characterized by erythema. This was ? biopsied. ? - Normal gastric body. ? - Normal gastric fundus. ? - Z-line regular, 40 cm from the ? incisors. ? - Normal middle third of esophagus. ? This was biopsied. ? - Normal upper third of esophagus. Recommendation: ?- Await pathology results. Letter ? will be sent to patient and referring ? provider in 10 days. ? - Return to primary care physician as ? previously scheduled. ? Caitlyn Hoang MD Signed Date: 05/16/2010 02:31:10 PM Number of Addenda: 0 Note initiated on 05/16/2010 01:38:29 PM [employer]ATION 05/16/2010 1:38 PM EDT Unknown GENERAL SURGICAL ORD ERABLES [employer]ATION documented in this encounter Visit Diagnoses Not on filedocumented in this encounter Active and Recently Administered Medications Care Teams Yard Hand Relationship Specialty Start Date End Date Marianna Garcia MD [facility] [address] [place] [address] [place] [address] PCP - General 01/09/10 09/20/13 documented as of this encounter
--- OUTSIDE RECORDS SUMMARY | 2023-09-08 13:49 | XMS_ITS | Encounter Summary ---
Author Organization [facility] [place] [address] Care Team Providers Care Combine Mechanic Name Role Phone Marianna Garcia MD Primary Care Provider [phone] Encounter Details Date Type Department Care Team (Late st Contact Info) Description 05/23/2010 9:00 AM EDT - 05/23/2010 9:05 AM EDT Hospital Encounter [place] [address] Social History Tobacco Use Types Packs/Day Years [...] 10:00 AM EDT [place] [id number] Deborah Richardson APRN documented as of this encounter Visit Diagnoses Not on filedocumented in this encounter Care Teams Combine Mechanic Relationship Specialty Start Date End Date Marianna Garcia MD [facility] [address] [place] [address] [place] [address] PCP - General 01/09/10 09/20/13 documented as of this encounter
--- OUTSIDE RECORDS SUMMARY | 2023-09-08 13:49 | XMS_ITS | Encounter Summary ---
Author Organization [facility] [place] [address] Care Team Providers Care Linen Sorter Name Role Phone Marianna Garcia MD Primary Care Provider [phone] Encounter Details Date Type Department Care Team (Late st Contact Info) Description 05/29/2010 Abstract [place] [address] Marcio Franklin MD [facility] [place] [address] Social History Tobacco Use Types Packs/Day Years [...] 10:00 AM EDT Office [place] [address] Deborah Richardson APRN documented as of this encounter Visit Diagnoses Not on filedocumented in this encounter Care Teams Linen Sorter Relationship Specialty Start Date End Date Marianna Garcia MD [facility] [address] [place] [address] [place] [address] PCP - General 01/09/10 09/20/13 documented as of this encounter
--- OUTSIDE RECORDS SUMMARY | 2023-09-08 13:49 | XMS_ITS | Encounter Summary ---
Author Organization [facility] [place] [address] Care Team Providers Care Clinical Laboratory Service Teacher Name Role Phone Marianna Garcia MD Primary Care Provider [phone] Encounter Details Date Type Department Care Team (Late st Contact Info) Description 05/23/2010 Orders Only [place] [address] Marcio Franklin MD [facility] [place] [address] Social History Tobacco Use Types Packs/Day Years [...] AM EDT Office [place] [address] Deborah Richardson APRN documented as of this encounter Procedures Procedure Name Priority Date/Time Associated Diagnosis Comments NM GASTRIC EMPTYING SCAN Routine 05/23/2010 1:45 PM EDT documented in this encounter Results * NM GASTRIC EMPTYING SCAN (05/23/2010 1:45 PM EDT) Anatomical Region Laterality Modality Other 05/23/2010 1:45 PM EDT Impressions 05/24/2010 1:41 PM EDT IMPRESSION: ?? Normal gastric emptying. ?? Narrative 05/24/2010 1:41 PM EDT GASTRIC EMPTYING STUDY, 05/23/10: ?? CLINICAL HISTORY: ??Nausea, vomiting, and abdominal pain. ? PROCEDURE: ??Following oral administration of a standard solid meal labeled with 0.5 mCi 99m-technetium sulfur colloid, anterior and posterior projection images of the abdomen were obtained immediately after ingesting the meal, and at one hour, two hours, and four hours post ingestion. ?? FINDINGS: At two hours post ingestion, 27% of the initial activity is remaining in the stomach (normal is less than 60%). ??At four hours, 1% of the initial activity is remaining in the stomach (normal is less than 10%). ?? Procedure Note Joni Teresa MD - 05/24/2010 GASTRIC EMPTYING STUDY, 05/23/10: CLINICAL HISTORY: Nausea, vomiting, and abdominal pain. PROCEDURE: Following oral administration of a standard solid meal labeledwith 0.5 mCi 99m-technetium sulfur colloid, anterior and posterior projectionimages of the abdomen were obtained immediately after ingesting the meal, and atone hour, two hours, and four hours post ingestion. FINDINGS: At two hours post ingestion, 27% of the initial activity isremaining in the stomach (normal is less than 60%). At four hours, 1% of theinitial activity is remaining in the stomach (normal is less than 10%). IMPRESSION IMPRESSION: Normal gastric emptying. Marcio Franklin MD IMG NM ORDERABLES documented in this encounter Visit Diagnoses Not on filedocumented in this encounter Care Teams Clinical Laboratory Service Teacher Relationship Specialty Start Date End Date Marianna Garcia MD HOSP[facility] [address] [place] [address] [place] [address] PCP - General 01/09/10 09/20/13 documented as of this encounter
--- OUTSIDE RECORDS SUMMARY | 2023-09-08 13:49 | XMS_ITS | Encounter Summary ---
Author Organization [facility] [place] [address] Care Team Providers Care Dial Marker Name Role Phone Kaylene Pinedo MD Primary Care Provider [phone] Reason for Visit * Reason Comments Chronic Kidney Disease Encounter Details Date Type Department Care Team (Late st Contact Info) Description 10/28/2013 9:30 AM EDT Follow-Up [place] [address] Devin Myrick MD [facility] [place] [address] CKD (chronic kidney disease), stage III (Primary Dx) Discharge Disposition: Home Social History [...] Sign Reading Time Taken Comments Blood Pressure 118/66 10/28/2013 9:34 AM EDT Pulse 67 10/28/2013 9:34 AM EDT Temperature - - Respiratory Rate - - Oxygen Saturation 99% 10/28/2013 9:34 AM EDT Inhaled Oxygen Concentration - - Weight 71.7 kg (158 lb) 10/28/2013 9:34 AM EDT Height 171.5 cm (5' 7.5) 10/28/2013 9:34 AM EDT Body Mass Index 24.38 10/28/2013 9:34 AM EDT documented in this encounter Progress Notes * Devin Myrick MD - 10/28/2013 9:54 AM EDT Nephrology/Hypertension Clinic Follow-up Note [id number] ID: 58 y.o.year-old female for follow up of CKD Past Medical History: No past medical history on file. Patient Active Problem List Diagnosis Code ??? CKD (chronic kidney disease) 585.9 ??? HTN (hypertension) 401.9 ??? GERD (gastroesophageal reflux disease) 530.81 Current Outpatient Prescriptions on File Prior to Visit Medication Sig Dispense Refill ??? levalbuterol (XOPENEX) 0.63 mg/3 mL nebulizer solution Take 1 ampule by nebulization every 4 hours as needed. ??? famotidine (PEPCID) 20 mg tablet Take 10 mg by mouth daily. ??? fluticasone (FLOVENT) 110 mcg/actuation inhaler Inhale 1 puff into the lungs 2 times daily. ??? MULTI-VITAMIN ORAL Take by mouth. ? ? LACTOBAC CMB #3/FOS/PANTETHINE (PROBIOTIC & ACIDOPHILUS ORAL) Take by mouth. ??? COD LIVER OIL ORAL Take 1 capsule by mouth daily. ??? acetaminophen (TYLENOL) 500 mg tablet Take by mouth as needed. 1 - 2 tablets = 1,000 mg As needed ??? traZODone (DESYREL) 50 mg tablet Take 50 mg by mouth nightly. ??? epiNEPHrine (EPIPEN) 0.3 mg/0.3 mL injection 0.3 MG/0.3 ML, IM, as directed ??? cetirizine (ZYRTEC) 10 mg tablet 10 MG = 1 Tablet(s), PO, Once daily,PRN Allergies Allergen Reactions ??? Cis Free Text Allergy peanuts,ham,rice,nuts,soy seeds,wheat. ??? Cis Free Text Allergy muscle relaxants. ??? Cis Free Text Allergy many antidepressants. ??? Cis Free Text Allergy many antianxiety. ??? Cis Free Text Allergy multiple foods. ??? Corticosteroids (Glucocorticoids) ??? Erythromycin Base ??? Milk ??? Milk Based Formula ??? Penicillins CIS - Unknown, CIS - Unknown S: here for routine f/u on CKD. She had lab tests locally in September with cr 1.2, eGFR 47. She has urinary frequency but no dysuria or gross hematuria. She feels that she has an odor, no of the urine but of her. She has some vaginal d/c she attributes to estrace cream but no other discharge. [facility] has been ok. She has been dealing with depression and feels fatigued all the time (dispropo rtionate to the depression). She recently lost her job at [employer]. She recalls that she did have US at [facility] and was told that it was all normal. ROS: System Abnormalities Constitutional No f/c/s. She has gained a few lbs. Eye No unusual headaches. Vision is ok with glasses ENT She does have some bloody d/c each am when she blows her nose- typically spring to [place]; some dysphagia (long standing) for stringy things like meat- no change for years CV No cp or swelling Resp +asthma flares with pollen and exercise GI No n/v. Occ loose stools. See above Skin No rash Allergy Endocrine No DM; thyroid was checked including thyroid hormone levels recently normal Neurologic No paresthesias Musculoskeletal Plantar fasciitis worse on right Lymph/heme Not sure if blood counts were checked Psych Depression being treated with fluoxetine since Sep All other systems reviewed and negative. O: Filed Vitals: 10/28/13 0934 BP: 118/66 Pulse: 67 General: Looks well Eye: brian ENT: Nares irritated and boggy c/w allergies, OP irritated as well Neck: Bilateral ant cerv nodes enlarged, but mobile and nt (chronic per patient) CV: rrr Resp: Clear, no wheezing Abd: Soft, nt, nabs, no bruits Lymph: Ant cerv nodes Ext: No edema. Bulge right ankle near achilles, ? Bursa vs tendon sheath cyst? Nontender, nonred, soft (she says comes and goes) Skin: No rash Neuro: nonfocal Psych: Normal Office UA: 1.000, ph 7, tr blood, mod squames Labs: Lab Results Component Value Date WBC 5.7 04/14/2012 RBC 4.49 04/14/2012 HGB 13.7 04/14/2012 HCT 40.6 04/14/2012 MCV 90.4 04/14/2012 MCH 30.5 04/14/2012 MCHC 33.7 04/14/2012 PLATELET 209 04/14/2012 RDWCV 13.4 04/14/2012 Chemistry Component Value Date/Time NA 143 04/14/2012 1638 K 3.8 04/14/2012 1638 CL 105 04/14/2012 1638 CO2 27 04/14/2012 1638 BUN 17 04/14/2012 1638 CREATININE 1.24* 04/14/2012 1638 Component Value Date/Time CALCIUM 9.5 04/14/2012 1638 ALKPHOS 85 08/19/2011 1055 AST 25 08/19/2011 1055 ALT 25 08/19/2011 1055 BILITOT 0.5 08/19/2011 1055 Lab Results Component Value Date PHOS 3.7 04/14/2012 A/P: 58 yo woman with stage G3A, A1 CKD by serum cr. Her cr has been stable to improved over the past year. She is normotensive and has no proteinuria. The next time she has labs, I suggest checking PTH, vit D, BMP, phos, and hb (annually/prn changes). I will ask her primary provider to forward copies of prior renal imaging studies to complete the review. Her fatigue is nonspecific but unlikely to relate to her renal issues. It is possible that her GFR is more normal than predicted by the serumcr as the mdrd equation overestimates the degree of renal impairment when the cr is normal or closeto normal. I will see her back annually and prn. CC: KAYLENE PINEDO MD [address] [place] [address] documented in this encounter Plan of Treatment Upcoming Encounters Date Type Department Care Team (Late st Contact Info) Description 11/05/2023 10:00 AM EDT [place] [address] Deborah Richardson APRN documented as of this encounter Procedures Procedure Name Priority Date/Time Associated Diagnosis Comments PTH Routine 10/28/2013 10:34 AM EDT CKD (chronic kidney disease), stage III HEMOGRAM Routine 10/28/2013 10:34 AM EDT CKD (chronic kidney disease), stage III DIFFERENTIAL, AUTOMATED Routine 10/28/2013 10:34 AM EDT CKD (chronic kidney disease), stage III CBC (WITH DIFF) Routine 10/28/2013 10:34 AM EDT CKD (chronic kidney disease), stage III CRP, CARDIAC RISK (HS CRP) Routine 10/28/2013 10:34 AM EDT CKD (chronic kidney disease), stage III PHOSPHORUS Routine 10/28/2013 10:34 AM EDT CKD (chronic kidney disease), stage III U ALBUMIN/CRE RATIO Routine 10/28/2013 1 0:00 AM EDT CKD (chronic kidney disease), stage III documented in this encounter Results * Differential, Automated (10/28/2013 10:34 AM EDT) Neutrophils % 40.4 34.0 - 71.0 % CERNER MILLENNIUM Neutr Abs (ANC) 2.03 1.50 - 6.30 x10(3)/mcL CERNER MILLENNIUM Lymphocytes % 44.1 19.0 - 53.0 % CERNER MILLENNIUM Lymphocytes Abs 2.2 1.0 - 3.6 x10(3)/mcL CERNER MILLENNIUM Monocytes % 8.7 4.0 - 13.0 % CERNER MILLENNIUM Monocyte Abs 0.4 0.2 - 1.0 x10(3)/mcL CERNER MILLENNIUM Eosinophils % 6.0 0.0 - 7.0 % CERNER MILLENNIUM Eosinophils Abs 0.3 0.0 - 0.5 x10(3)/mcL CERNER MILLENNIUM Basophils % 0.8 0.0 - 2.0 % CERNER MILLENNIUM Basophils Abs 0.0 0.0 - 0.2 x10(3)/mcL CERNER MILLENNIUM Immature Gran % 0.00 0.00 - 0.66 % CERNER MILLENNIUM Comment: Immature granulocytes(IG's)percentage and absolute count will include metamyelocytes, myelocytes, and promyelocytes. Blood smears from CBCs yielding IG's will be scanned manually for concordance. If this scan disagrees with the automated IG or if promyelocytes are noted, a manual differential will be performed. Renetta Gran Abs 0.00 0.00 - 0.05 x10(3)/mcL CERNER MILLENNIUM Blood specimen (specimen) 10/28/2013 10:34 AM EDT 10/28/2013 10:41 AM EDT Narrative Resulting Agency Comment Spec In Lab Devin Myrick MD HEMATOLOGY ORDERABLE S Performing Organization Address City/[facility] Co de Phone Number CERKEILA CABRERAENNIUM * (ABNORMAL) Hemogram (10/28/2013 10:34 AM EDT) WBC 5.0 4.0 - 10.0 x10(3)/mcL CERNER MILLENNIUM RBC 4.46 3.93 - 5.22 x10(6)/mcL CERNER MILLENNIUM Hemoglobin 13.4 11.2 - 15.7 gm/dL CERNER MILLENNIUM Hematocrit 41.2 34.0 - 45.0 % CERNER MILLENNIUM MCV 92.4 79.0 - 94.0 fL CERNER MILLENNIUM MCH 30.0 26.6 - 32.2 pg CERNER MILLENNIUM MCHC 32.5 32.0 - 36.5 gm/dL CERNER MILLENNIUM Platelets 190 145 - 370 x10(3)/mcL CERNER MILLENNIUM RDWSD 44.7 35.0 - 46.0 fL CERNER MILLENNIUM RDWCV 13.3 10.9 - 14.4 % CERNER MILLENNIUM MPV 12.6(H) 9.0 - 12.0 fL CERNER MILLENNIUM Blood specimen (specimen) 10/28/2013 10:34 AM EDT 10/28/2013 10:41 AM EDT Narrative Resulting Agency Comment Spec In Lab Devin Stephanie Myrick MD HEMATOLOGY ORDERABLE S CERKEILA ACBRERAENNIUM * High Sensitivity CRP (10/28/2013 10:34 AM EDT) Pathologist [facility] CRP High Sens <0.2 mg/L [facility] Comment: Interpretations: 1) For accurate cardiac risk assessment, the average of 2 values >2 weeks apart should be obtained (ref 1&2). A value >10 mg/L indicates an inflammatory condition, concentrations >10 mg/L should not be used for cardiac risk assessment. ?<1.0 mg/L: low risk ?1.0 - 3.0 mg/L: moderate risk ?>3.0 mg/L: high risk groups for future cardiovascular events 2) The general reference range of apparently healthy individuals using this test is <5.0 mg/L (derived from the test package insert) References: 1. [facility] FINCH et. al. ??AHA/CDC Scientific Statement: Markers of Inflammation and Cardiovascular Disease. ??Circulation 2003; 107:499-511 2. Rene PM. ??Clinical applications of C-reactive protein for cardiovascular disease detection and prevention. ??Circulation 2003; 107:363-369 Blood specimen (specimen) 10/28/2013 10:34 AM EDT 10/28/2013 10:41 AM EDT Narrative Resulting Agency Comment Spec In Lab Devin Myrick MD CHEMISTRY ORDERABLES Performing Organization Address [facility] de Phone Number [facility] * PTH (10/28/2013 10:34 AM EDT) [facility] PTH 38 15 - 65 pg/mL [facility] Blood specimen (specimen) 10/28/2013 10:34 AM EDT 10/28/2013 10:41 AM EDT Narrative Resulting Agency Comment Spec In Lab Devin Myrick MD CHEMISTRY ORDERABLES Performing Organization Address [facility] de Phone Number [facility] * Phosphorus (10/28/2013 10:34 AM EDT) [facility] Phosphorus 2.7 2.5 - 4.5 mg/dL [facility] Blood specimen (specimen) 10/28/2013 10:34 AM EDT 10/28/2013 10:41 AM EDT Narrative Resulting Agency Comment Spec In Lab Devin Myrick MD CHEMISTRY ORDERABLES Performing Organization Address [facility] de Phone Number [facility] * Microalbumin, urine, random (10/28/2013 10:00 AM EDT) U Creatinine 35 mg/dL [facility] U Albumin Conc, Random <3.0 mg/L [facility] MILLENNIUM Comment:rechecked-ds Alb/Cr Ratio, Random <9 mcg/mg Cr CERN[facility] MILLENNIUM Comment: Reference Range* Random collection (mcg/mg creatinine) Normal ?<30 Microalbuminuria ?? 30 - 300 Clinical Albuminuria ?? >300 *English Diabetes Association. Diabetic Nephropathy. Diabetes Care 1997;(Suppl 1):S24-S27 Exercise within 24 hour, infection, fever, CHF, marked hyperglycemia, and marked hypertension may elevate urinary albumin excretion over baseline values. Urine specimen (specimen) 10/28/2013 10:00 AM EDT 10/28/2013 12:21 PM EDT Narrative Resulting Agency Comment Spec In Lab Devin Myrick MD URINE ORDERABLES Performing Organization Address [facility] de Phone Number [employer] [place] documented in this encounter Visit Diagnoses Diagnosis CKD (chronic kidney disease), stage III- Primary Chronic kidney disease, Stage III (moderate) documented in this encounter Care Teams Dial Marker Relationship Specialty Start Date End Date Kaylene Pinedo MD [address] [place] [address] PCP - General 09/21/13 02/21/21 documented as of this encounter
--- OUTSIDE RECORDS SUMMARY | 2023-09-08 13:49 | XMS_ITS | Encounter Summary ---
Author Organization [facility] [place] [address] Care Team Providers Care Personal Attendant Name Role Phone Kaylene Pinedo MD Primary Care Provider [phone] Encounter Details Date Type Department Care Team (Late st Contact Info) Description 01/16/2021 Ancillary Procedure [place] [address] Dot Briones APRN [facility] [place] [address] Social History Tobacco Use Types Packs/Day Years [...] 10:00 AM EDT Office Visit [place] [address] Deborah Richardson APRN documented as of this encounter Procedures Procedure Name Priority Date/Time Associated Diagnosis Comments FILM LIBRARY STORAGE ONLY ULTRASOUND STUDY Routine 01/16/2021 12:00 AM EST documented in this encounter Results * Film Library- Storage Only Ultrasound Study (01/16/2021 12:00 AM EST) Narrative EDY - 04/24/2021 7:29 PM EST This exam is auto-finalizing. It's purpose is for storage only. Dotelyssa Luna Karel FAUSTIN IMG FILM LIBRAR Y ORDERABLES Performing Organization Address City/State/[facility] Co de Phone Number [place], [place] documented in this encounter Visit Diagnoses Not on filedocumented in this encounter Care Teams Personal Attendant Relationship Specialty Start Date End Date Kaylene Pinedo MD [address] [place] [address] PCP - General 09/21/13 02/21/21 documented as of this encounter
--- OUTSIDE RECORDS SUMMARY | 2023-09-08 13:49 | XMS_ITS | Encounter Summary ---
Author Organization [facility] [place] [address] Care Team Providers Care Transport Rn Name Role Phone Marianna Garcia MD Primary Care Provider [phone] Encounter Details Date Type Department Care Team (Late st Contact Info) Description 03/13/2010 10:00 AM EST Office Visit [place] [address] Marcio Franklin MD [facility] [place] [address] Discharge Disposition: Home Social History Tobacco Use [...] AM EDT Office [place] [address] Deborah Richardson APRN documented as of this encounter Visit Diagnoses Not on filedocumented in this encounter Care Teams Transport Rn Relationship Specialty Start Date End Date Marianna Garcia MD HOSPITALIST SERVICES [address] [place] [address] [place] [address] PCP - General 01/09/10 09/20/13 documented as of this encounter
--- OUTSIDE RECORDS SUMMARY | 2023-09-08 13:49 | XMS_ITS | Encounter Summary ---
Author Organization [facility] [place] [address] Care Team Providers Care Nurse School Name Role Phone Marianna Garcia MD Primary Care Provider [phone] Reason for Visit * Reason Onset Date Comments Questions 05/22/2010 Encounter Details Date Type Department Care Team (Late st Contact Info) Description 05/22/2010 Telephone [place] [address] Marcio Franklin MD [facility] DR GASTROENTER[place] [address] Questions Social History Tobacco Use Types Packs/Day Years Used Date Smoking Tobacco: Never Assessed Sex and Gender Information Value Date Recorded Sex Assigned at Not on file Gender Identity Not on file Sexual Orientation Not on file documented as of this encounter Miscellaneous Notes * Telephone Encounter - Sarah Roberto RN - 05/22/2010 3:00 PM EDT Note received from Dr. Franklin requesting I call pt and inform her that her gastric emptying scan is sched for tomorrow and requires no prep. Pt notified; verbalizes understanding. * Telephone Encounter - Kary Rosado - 05/22/2010 8:10 AM EDT Pt called wondering if procedure for tomorrow is ness. She will be prepping by noon. From what Pt knows Endoscopy was the determinant for tomorrows procedure... Please call pt NATTY documented in this encounter Plan of Treatment Upcoming Encounters Date Type Department Care Team (Late st Contact Info) Description 11/05/2023 10:00 AM EDT [place] [address] Deborah Richardson APRN documented as of this encounter Visit Diagnoses Not on filedocumented in this encounter Care Teams Nurse School Relationship Specialty Start Date End Date Marianna Garcia MD HOSPITALIST SERVICES [address] [place] [address] [place] [address] PCP - General 01/09/10 09/20/13 documented as of this encounter
--- OUTSIDE RECORDS SUMMARY | 2023-09-08 13:49 | XMS_ITS | Encounter Summary ---
[facility] [place] [address] Care Team Providers Care X Ray Control Equipment Repairer Name Role Phone Amrita Saab DO Primary Care Provider Reason for Referral * Consultation (Routine) - Closed Specialty Diagnoses / Procedures Referred By Leidy t Referred To Contact Nephrology Diagnoses Stage 3 chronic kidney disease, unspecified whether stage 3a or 3b CKD Renal scarring Dot Briones APRN [facility] [place] [address] [facility]ph[facility] [address] [place] [phone] Referral ID Status Reason Start Date Expiration Date V isits Requested Visits Authorized [id number] Closed Consult, Test & Treat 04/10/2021 04/10/2022 1 1 Reason for Visit * Consultation (Routine) - Closed Specialty Diagnoses / Procedures Referred By Contkaleb t Referred To Contact Urology Diagnoses Urinary tract infection, site not specified Moira Covarrubias MD [address] [place] [id number] [facility] [place] [address] Referral ID Status Reason Start Date Expiration Date V isits Requested Visits Authorized [id number] Closed Consult, Test & Treat [facility] PCP Updated and/or Approved 02/20/2021 02/20/2022 10 10 Encounter Details Date Type Department Care Team (Latest Contact Info) Description 04/10/2021 11:00 AM EST TH Visit (TeleHealth) [place] [address] Dot Briones, RAMIN [facility] [place] [address] Stage 3 chronic kidney disease, unspecified whether stage 3a or 3b CKD; Mixed stress and urge urinary incontinence; IC (interstitial cystitis); History of UTI; Renal scarring Social History [...] Progress Notes * Dot Briones APRN - 04/10/2021 11:00 AM EST [facility] SECTION OF UROLOGY NEW PATIENT ASSESSMENT Patient Name: Ruthann Wolf Patient Primary Care Provider: Amrita Saab DO Referring Provider: Dr. Saab History of Present Illness: Ruthann Wolf is an 66 y.o. year old woman, seen at the request of Dr. Saab who presents for evaluation and assessment of OAB. She has had symptoms for the past few months. Notes from No primary care provider on file. have been received and reviewed. She does not have the link for video. Ruthann Wolf consented to conduct this clinical encounter by telephone. The patient acknowledges that the insurance may be billed for the care provided, similar to an in person appointment. The patient is currently in [place]. Prior to beginning the visit, I confirmed [...] such requirements may be waived. [facility] available for patient's review in [facility]'s patient portal, [employer]. 02/2021: pt saw PCP with oab and [...] has CKD and does not see a Director Of Leadership Development. She is most concerned about the fact that she has no risk factors for CKD, but she did have an elevated cre decades ago. She was then seenby a sales service assistant, and an US in the past showed [...] concern today. She is not seeing a sales service assistant but wants to. She does leak with [...] sugar as well. She is seeing a upholstery auto trimmer. She has issues withfood and what she can eat. No motrin with kidney issues. Only tylenol Was on amitriptyline recently for GI issues, she had GERD with this. Takes pantoprazole. She had a renal US recently. She had an MRI recently-no liver cancer. This was done at [facility]. ROS: Constitutional: No fevers, chills, weight gain/loss, excessive fatigue. She has some intermittent dizziness for a moment. HEENT: Denies new problems with vision or hearing, sore throat, hoarseness. Cardiovascular: Denies chest pain, palpitations, shortness of breath, ankle swelling, claudication. Respiratory: Denies cough, hemoptysis, wheeze. Gastrointestinal: Denies nausea, vomiting, abdominal pain, diarrhea, constipation, blood per rectum. Neurological: Denies headaches, dizziness, double vision, weakness of one side of the body. Musculoskeletal: Denies bone pain, joint pain, muscle weakness or myalgias. Heme/Lymph: Denies easy bleeding or bruising. Endocrine: Denies diabetes or thyroid disease. Skin: Denies changing moles or rashes. Psych: Denies depression or anxiety. Gyne: Iris 4 P 1 #1 hysterectomy in 2008 for bleeding 3/4 weeks per month-uses estradiol cream 2-3x/week Patient Active Problem List Diagnosis Code ??? CKD (chronic kidney disease) N18.9 ??? HTN (hypertension) I10 ??? GERD (gastroesophageal reflux disease) K21.9 ??? Disequilibrium R42 Barretts IC Liver lesion Left thumb arthritis Osteopenia Hyperlipidemia Asthma IBS Fannie T&A Appendectomy Hysterectomy Sinus surgery Endoscopy Hernia repair as an infant, and then with her fannie, then a year later. Family history:dad had bladder cancer in his 80s. Social history: -trying to divorce, never a smoker, no etoh. 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 Impression: ANALI and OAB IC with bladder symptoms presently ? UTI S/p hysterectomy for bleeding. On estrace twice weekly-3 times a week now. CKD Plan/Recommendations: ??? Referral to nephrology for her CKD ??? I will see her Friday for pelvic exam, UA/culture, and discussion of treatment options for leaking/IC. We will consider amitriptyline again. In the meantime, she will look at the IC diet. Hydrateto 64 oz. ??? Will get her renal US and MRI results from [facility] All questions answered to her apparent satisfaction She did not have the link today for the video, so we talked by phone. 40 min spent with pt in discussion, review of old record, and review of sx/CKD. Dot Vinson APRN Section of Urology [phone] documented in this encounter Plan of Treatment Upcoming Encounters Date Type Department Care Team (Late st Contact Info) Description 11/05/2023 10:00 AM EDT [place] [address] Deborah Richardson APRN Scheduled Referrals Name Type Priority Associated Diagnoses Orde r Schedule Referral to Nephrology Outpatient Referral Routine Stage 3 Chronic Kidney Disease, Unspecified Whether Stage 3a Or 3b Ckd Renal scarring Ordered: 04/10/2021 documented as of this encounter Visit Diagnoses Diagnosis Stage 3 chronic kidney disease, unspecified whether stage 3a or 3b CKD Mixed stress and urge urinary incontinence Mixed incontinence urge and stress (male)(female) IC (interstitial cystitis) Chronic interstitial cystitis History of UTI Personal history of urinary (tract) infection Renal scarring Other specified disorder of kidney and ureter documented in this encounter Care Teams X Ray Control Equipment Repairer Relationship Specialty Start Date End Date Amrita Saab DO PCP - General Family Medicine 03/16/21 07/16/21 documented as of this encounter
--- OUTSIDE RECORDS SUMMARY | 2023-09-08 13:49 | XMS_ITS | Encounter Summary ---
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 [address] Renal insufficiency (Primary Dx) Discharge Disposition: Home Social History [...] Sign Reading Time Taken Comments Blood Pressure 129/79 08/19/2011 9:21 AM EDT Pulse 70 08/19/2011 9:21 AM EDT Temperature - - Respiratory Rate 20 08/19/2011 9:21 AM EDT Oxygen Saturation 100% 08/19/2011 9:21 AM EDT Inhaled Oxygen Concentration - - Weight 69.1 kg (152 lb 4 oz) 08/19/2011 9:21 AM EDT Height 171.5 cm (5' 7.5) 08/19/2011 9:21 AM EDT Body Mass Index 23.49 08/19/2011 9:21 AM EDT documented in this encounter Progress Notes * Tai Martinez MD - 08/19/2011 10:38 AM EDT Nephrology Clinic New Patient Visit Ruthann Wolf [id number] ID: [id number] y.o. old female seen at the request of Dr. MARIANNA SKELTON MD for evaluation of worsening renal function. Past Medical History: 1. Allergies - Environmental - Peanut 2. GERD - On PPI 3. Difficulty with sleep - On Trazadone at night 4. HTN - Recent onset 5. Asthma - 3 hospitalizations ( last in ) 6. Hx of fibromyalgia 7. Interstitial cystitis - Pain prior to urination Surgical: - Tonsils as child - Sinus surgery in 1992 - Cholecystectomy 08/2006 - Hernia of above incision repaired with below 09/2007 - Appendectomy 09/2007 - Repeat incisional hernia 04/2008 - TAHBSO 02/2009 History of Present Illness: Seen in evaluation of CKD: Patient with relevant past medical history of HTN and interstitial cystitis. Per records has had mild CKD for at least 10 years. Base line serum creatinine of 1.4mg/dl fromPCPs office. She is unaware of any renal trauma, no history of nephrotoxic exposures. No current hematuria or dysuria though has to strain at times to get urine flow. Does not have significant NSAID use. Denies hx of nephrolithiasis or recurrent UTIs. Today tired but in her usual state of health. Current outpatient prescriptions ordered prior to encounter Medication Sig Dispense Refill ??? acetaminophen (TYLENOL) 500 mg tablet Take by mouth as needed. 1 - 2 tablets = 1,000 mg As needed ??? Cholecalciferol, Vitamin D3, 1,000 unit Tab Take 1,000 Units by mouth every morning. Pt. Takes 2-3 times weekly ??? SUMAtriptan (IMITREX) 50 mg tablet Take 50 mg by mouth as needed. ??? traZODone (DESYREL) 50 mg tablet Take 50 mg by mouth nightly. ??? LEVALBUTEROL HCL (XOPENEX INHL) ??? epiNEPHrine (EPIPEN) 0.3 mg/0.3 mL injection 0.3 MG/0.3 ML, IM, as directed ??? cetirizine (ZYRTEC) 10 mg tablet 10 MG = 1 Tablet(s), PO, Once daily,PRN ??? fluticasone-salmeterol (ADVAIR HFA) 115-21 mcg/Actuation inhaler 2 Puff(s), Inh, Twice daily Allergies Allergen Reactions ??? Cis Free Text Allergy peanuts,ham,rice,nuts,soy seeds,wheat. ??? Cis Free Text Allergy muscle relaxants. ??? Cis Free Text Allergy many antidepressants. ??? Cis Free Text Allergy many antianxiety. ??? Cis Free Text Allergy multiple foods. ??? Penicillins CIS - Unknown, CIS - Unknown ??? Milk ??? Milk Based Formula ??? Glucocorticoids (Corticosteroids) ??? Erythromycin Base Family History: History of Renal Disease: No known family history of renal disease Father - CVAs, Aspiration, and hx of bladder cancer Mother - 79 alzheimer's, possible CAD Sister - Marfans Brother - healthy Social History: Spouse: Children: Son healthy Work History and Exposures: Currently works doing [employer] - no known toxic exposures Smoking History: Never OTCs: APAP, Hx of NSAID use though stopped years ago Tries to exercise daily Unaware if born prematurely or of low weight Review of Systems: System Abnormalities Constitutional Chronically tired, and no appetite changes Eye No vision changes, wears glasses ENT Pending visit with greens planter for evaluation of R ear hearing, has recurrent sinus drainage and sneezing CV Denies chest pain or palpitations Resp + cough, does have asthma associated shortness of breath GI No abdominal pain nausea or diarrhea does have OCC constipation No hematuria dysuria no stones infection and only OCC has to strain to get flow moving Skin Denies rashes Allergy As above Endocrine Notes not dysuria, no hematuria, urine volumes increasing quite a bit, drinking more tokeep up. Episodes of perceived low blood sugar and feels irratable, light headed Neurologic No hx of seizures or CVA Musculoskeletal Hx of L 5th toe fx, some arthritis in fingers Lymph No edema Psych does not handle stress well Y N All other systems reviewed and negative. Physical Examination: BP 129/79 Pulse 70 Resp 20 Ht 171.5 cm (5' 7.5) Wt 69.06 kg (152 lb 4 oz) BMI 23.49 kg/m2 SpO2 100% Gen: WD WN female in NAD HEENT: EOMI, PERRL, Oropharynx moist without lesions Neck: Full range of motion, no bruits, no lymphadenopathy or thyromegaly Lungs: Clear to auscultation and percussion, no wheezes or rales Chest/Back: no spinal tenderness, no CVAT Heart: RRR, S1,S2, no murmur, gallop or rub Abdomen: soft, nontender, no hepatosplenomegaly, masses or distention, normal active bowel sounds, no abdominal bruits Neurological: Oriented x3, Strength intact 5/5 upper and lower extremities Extremities: No clubbing, cyanosis or edema Skin: no rashes, lesions, plaques or nodules Psych: Mood and affect congruent Imaging: Labs: Results for RUTHANN WOLF ( ) as of 08/14/2012 04:34 Ref. Range 08/19/2011 09:34 08/19/2011 09:34 08/19/2011 10:55 WBC Latest Range: 4.0-10.0 x10(3)/mcL 4.7 RBC Latest Range: 3.93-5.22 x10(6)/mcL 4.64 Hemoglobin Latest Range: 11.2-15.7 gm/dL 14.1 Hematocrit Latest Range: 34.0-45.0 % 40.9 MCV Latest Range: 79.0-94.0 fL 88.1 MCH Latest Range: 26.6-32.2 pg 30.4 MCHC Latest Range: 32.0-36.5 gm/dL 34.5 RDWSD Latest Range: 35.0-46.0 fL 42.3 RDWCV Latest Range: 10.9-14.4 % 13.2 Platelets Latest Range: 145-370 x10(3)/mcL 209 MPV Latest Range: 9.0-12.0 fL 12.0 Neutr Abs (ANC) Latest Range: 1.50-6.30 x10(3)/mcL 1.96 Neutrophils % Latest Range: 34.0-71.0 % 41.4 Immature Gran % Latest Range: 0.00-0.66 % 0.00 Lymphocytes % Latest Range: 19.0-53.0 % 37.8 Monocytes % Latest Range: 4.0-13.0 % 12.0 Eosinophils % Latest Range: 0.0-7.0 % 8.4 (H) Basophils % Latest Range: 0.0-2.0 % 0.4 Renetta Gran Abs Latest Range: 0.00-0.05 x10(3)/mcL 0.00 Lymphocytes Abs Latest Range: 1.0-3.6 x10(3)/mcL 1.8 Monocyte Abs Latest Range: 0.2-1.0 x10(3)/mcL 0.6 Eosinophils Abs Latest Range: 0.0-0.5 x10(3)/mcL 0.4 Basophils Abs Latest Range: 0.0-0.2 x10(3)/mcL 0.0 Sodium Latest Range: 135-145 mmol/L 141 Potassium Latest Range: 3.5-5.0 mmol/L 4.0 Chloride Latest Range: 98-107 mmol/L 104 CO2 Latest Range: 22-31 mmol/L 27 Anion Gap Latest Range: 5-15 mmol/L 10 BUN Latest Range: 8-18 mg/dL 21 (H) Creatinine Latest Range: 0.70-1.20 mg/dL 1.37 (H) Estimated GFR Latest Range: >=60 40 (L) Glucose Lvl Latest Range: 60-199 mg/dL 81 Calcium Latest Range: 8.5-10.5 mg/dL 9.3 Total Protein Latest Range: 6.4-8.3 gm/dL 7.2 Albumin Latest Range: 3.2-5.2 gm/dL 4.4 Total Bilirubin Latest Range: 0.2-1.3 mg/dL 0.5 Bili, Direct Latest Range: 0.0-0.3 mg/dL 0.1 Alk Phos Latest Range: 40-104 unit/L 85 AST Latest Range: 0-30 unit/L 25 ALT Latest Range: 0-30 unit/L 25 25-OH Vit D Total Latest Range: 30-100 ng/mL 47 Vit D 1,25 Latest Range: 18-78 pg/mL 49 Total Prot Elec Latest Range: 6.1-8.0 gm/dL 7.0 Albumin Elect Latest Range: 3.60-6.00 gm/dL 4.41 Alpha1-Globulin Latest Range: 0.10-0.30 gm/dL 0.22 Alpha2-Globulin Latest Range: 0.40-0.90 gm/dL 0.76 Beta Globulin Latest Range: 0.50-1.00 gm/dL 0.69 Gamma Globulin Latest Range: 0.50-1.30 gm/dL 0.92 M1 Band Latest Range: None Detected gm/dL None Detected Scan No range found See Note U Protein Ran Latest Range: 0-12 mg/dL <6 <6 U Albumin No range found See Note U Globulin No range found Not Applicable U M Band Latest Range: None Detected % total Not Applicable U Scan No range found Not Applicable PTH Latest Range: 15-65 pg/mL 49 Total Urine WBC Latest Range: 0-5 /HPF 1 Eosinophil Urine Latest Range: 0-0 See Comment U Creatinine No range found 22 Prot/Cre Ratio No range found <0.1 A/P: 1. CKD: Patient with CKD-3. Indolent course with current eGFR of 40 ml/min. Risk factors are age and HTN. Evaluation today reveals no proteinuria or paraproteinemia. Findings not suspicious for PPI related AIN. Given stability and absent proteinuria is at low risk for progression of CKD. Currently with no metabolic manifestations of CKD. 2. Hypertension: Well controlled - no issues 3. Electrolyte and Acid/Base: No metabolic acidosis or hyperkalemia 4. Bone Mineral Metabolism: NL Ca/Phos and 25-D - no evidence of secondary hyperparathyroidism 5. Anemia and Iron Metabolism: No issues Thank you for allowing me to participate in the care of this interesting patient. Please call if I can be of further assistance. > 50% of this 60 minute visit was spent in counseling and coordination of care. Please CC to: MARIANNA SKELTON MD [address] [facility] [address] documented in this encounter Plan of Treatment Upcoming Encounters Date Type Department Care Team (Late st Contact Info) Description 11/05/2023 10:00 AM EDT [place] [address] Deborah Richardson APRN documented as of this encounter Procedures Procedure Name Priority Date/Time Associated Diagnosis Comments PTH Routine 08/19/2011 10:55 AM EDT Renal insufficiency DIFFERENTIAL, AUTOMATED Routine 08/19/2011 10:55 AM EDT 1,25-DIHYDROXYCHOLECA LCIFEROL Routine 08/19/2011 10:55 AM EDT Renal insufficiency VITAMIN D, 25-HYDROXY Routine 08/19/2011 10:55 AM EDT Renal insufficiency CBC (WITH DIFF) Routine 08/19/2011 10:55 AM EDT Renal insufficiency PROTEIN ELECTROPHORESIS, SERUM Routine 08/19/2011 10:55 AM EDT Renal insufficiency COMPREHENSIVE METABOLIC PANEL (NON-FASTING) Routine 08/19/2011 10:55 AM EDT Renal insufficiency URINE EOSINOPHIL Routine 08/19/2011 9:34 AM EDT Renal insufficiency PROTEIN/CREATININE RATIO, URINE Routine 08/19/2011 9:34 AM EDT Renal insufficiency PROTEIN ELECTROPHORESIS, URINE, RANDOM Routine 08/19/2011 9:34 AM EDT Renal insufficiency documented in this encounter Results * (ABNORMAL) DIFFERENTIAL, AUTOMATED (08/19/2011 10:55 AM EDT) Neutrophils % 41.4 34.0 - 71.0 % CERNER MILLENNIUM Neutr Abs (ANC) 1.96 1.50 - 6.30 x10(3)/mc L CERNER MILLENNIUM Lymphocytes % 37.8 19.0 - 53.0 % CERNER MILLENNIUM Lymphocytes Abs 1.8 1.0 - 3.6 x10(3)/mc L CERNER MILLENNIUM Monocytes % 12.0 4.0 - 13.0 % CERNER MILLENNIUM Monocyte Abs 0.6 0.2 - 1.0 x10(3)/mc L CERNER MILLENNIUM Eosinophils % 8.4(H) 0.0 - 7.0 % CERNER MILLENNIUM Eosinophils Abs 0.4 0.0 - 0.5 x10(3)/mc L CERNER MILLENNIUM Basophils % 0.4 0.0 - 2.0 % CERNER MILLENNIUM Basophils Abs 0.0 0.0 - 0.2 x10(3)/mc L CERNER MILLENNIUM Immature Gran % 0.00 0.00 - 0.66 % CERNER MILLENNIUM Comment: Immature granulocytes(IG's)percentage and absolute count will include metamyelocytes, myelocytes, and promyelocytes. Blood smears from CBCs yielding IG's will be scanned manually for concordance. If this scan disagrees with the automated IG or if promyelocytes are noted, a manual differential will be performed. Renetta Gran Abs 0.00 0.00 - 0.05 x10(3)/mc L CERNER MILLENNIUM Blood specimen (specimen) 08/19/2011 10:55 AM EDT 08/19/2011 10:58 AM EDT Tai Martinez MD HEMATOLOGY ORDERABLE S Performing Organization Address City/[facility] Co de Phone Number CERNER MILLENNIUM * Protein Electrophoresis, serum (08/19/2011 10:55 AM EDT) Total Prot Elec 7.0 6.1 - 8.0 gm/dL CERNER MILLENNIUM Albumin Elect 4.41 3.60 - 6.00 gm/dL CERNER MILLENNIUM Alpha1-Globuli n 0.22 0.10 - 0.30 gm/dL CERNER MILLENNIUM Alpha2-Globuli n 0.76 0.40 - 0.90 gm/dL CERNER MILLENNIUM Beta Globulin 0.69 0.50 - 1.00 gm/dL CERNER MILLENNIUM Gamma Globulin 0.92 0.50 - 1.30 gm/dL CERNER MILLENNIUM M1 Band None Detected None Detected gm/dL CERNER MILLENNIUM Scan See Note CERNER MILLENNIUM Comment:Please see scanned r eport in Chart Review under the [facility] Laboratory Heading. Blood specimen (specimen) 08/19/2011 10:55 AM EDT 08/19/2011 10:58 AM EDT Narrative Resulting Agency Comment Spec In Lab Tai Martinez MD CHEMISTRY ORDERABLES Performing Organization Address City/[facility]/ZIP Co de Phone Number [facility] * CBC (with Diff) (08/19/2011 10:55 AM EDT) WBC 4.7 4.0 - 10.0 x10(3)/mcL CERNER MILLENNIUM RBC 4.64 3.93 - 5.22 x10(6)/mcL CERNER MILLENNIUM Hemoglobin 14.1 11.2 - 15.7 gm/dL CERNER MILLENNIUM Hematocrit 40.9 34.0 - 45.0 % CERNER MILLENNIUM MCV 88.1 79.0 - 94.0 fL CERNER MILLENNIUM MCH 30.4 26.6 - 32.2 pg CERNER MILLENNIUM MCHC 34.5 32.0 - 36.5 gm/dL CERNER MILLENNIUM Platelets 209 145 - 370 x10(3)/mcL CERNER MILLENNIUM RDWSD 42.3 35.0 - 46.0 fL CERNER MILLENNIUM RDWCV 13.2 10.9 - 14.4 % CERNER MILLENNIUM MPV 12.0 9.0 - 12.0 fL CERNER MILLENNIUM Blood specimen (specimen) 08/19/2011 10:55 AM EDT 08/19/2011 10:58 AM EDT Narrative Resulting Agency Comment Spec In Lab Tai Martinez MD HEMATOLOGY ORDERABLE S Performing Organization Address [facility] de Phone Number [facility] * Vitamin D, dihydroxy 1,25 (08/19/2011 10:55 AM EDT) Vit D 1,25 49 18 - 78 pg/mL CERNER MILLENNIUM Comment: Test Performed by: [address] [address] [employer] Officer: Gilmar Spence III, M.D. Blood specimen (specimen) 08/19/2011 10:55 AM EDT 08/19/2011 3:57 PM EDT Narrative Resulting Agency Comment Spec In Lab Tai Martinez MD CHEMISTRY ORDERABLES Performing Organization Address [facility] Co de Phone Number [facility] * VIT D Total Evaluation (08/19/2011 10:55 AM EDT) 25-OH Vit D Total 47 30 - 100 ng/mL [facility] Comment: Deficient <10 ng/mL Insufficient 10 to 29 ng/mL Sufficient 30 to 100 ng/mL Potential Intoxication >100 ng/mL According to the [place] National Osteoporosis Foundation, Vitamin D concentrations >30 ng/mL are sufficient to protect bone health. ??The National Kidney Foundation has similarly stated that patients with Vitamin D concentrations <30ng/mL should be considered to be insufficient or deficient. http://www.kidney.org/professionals/KDOQI/guidelines_bone/Guide7.htm http://www.nof.org/professionals/clinical-guidelines The [employer] iSYS Vitamin D Immunoassay detects both 25-OH Vitamin D2 and 25-OH Vitamin D3, but only a total Vitamin D concentration is reported. Please note, the performing location for this test has changed. ??As of 03/26/2011 the Vitamin D Total, 25 Hydroxy assays are being analyzed by the [facility] Chemistry Laboratory. ??There is NO CHANGE in units. ??Please contact the chemistry laboratory at [phone] with questions. Blood specimen (specimen) 08/19/2011 10:55 AM EDT 08/19/2011 10:58 AM EDT Narrative Resulting Agency Comment Spec In Lab Tai Martinez MD CHEMISTRY ORDERABLES Performing Organization Address [facility] Co de Phone Number [facility] * PTH (08/19/2011 10:55 AM EDT) PTH 49 15 - 65 pg/mL [facility] Blood specimen (specimen) 08/19/2011 10:55 AM EDT 08/19/2011 10:58 AM EDT Narrative Resulting Agency Comment Spec In Lab Tai Martinez MD CHEMISTRY ORDERABLES Performing Organization Address [facility]/ZIP Co de Phone Number [facility] * (ABNORMAL) Comprehensive metabolic panel (non-fasting) (08/19/2011 10:55 AM EDT) Glucose Lvl 81 60 - 199 mg/dL CERNER MILLENNIUM Comment:Diabetes: >=200 mg/d L plus symptoms BUN 21(H) 8 - 18 mg/dL CERNER MILLENNIUM Creatinine 1.37(H) 0.70 - 1.20 mg/dL CERNER MILLENNIUM Comment: Please note that the pediatric reference intervals supplied above were not validated at [facility]. Results from pediatric patients should be interpreted in conjunction to the patient's age, height and muscle mass. Sodium 141 135 - 145 mmol/L CERNER MILLENNIUM Potassium 4.0 3.5 - 5.0 mmol/L CERNER MILLENNIUM Comment: Please note: ??Patients with WBC >100,000 may have falsely elevated Potassium levels. ??For accurate Potassium quantification in these patients send serum separator tube (gold top) for subsequent determinations. ??Contact the Clinical Chemistry Laboratory if there are any questions. Chloride 104 98 - 107 mmol/L CERNER MILLENNIUM CO2 27 22 - 31 mmol/L CERNER MILLENNIUM Anion Gap 10 5 - 15 mmol/L CERNER MILLENNIUM Calcium 9.3 8.5 - 10.5 mg/dL CERNER MILLENNIUM Total Protein 7.2 6.4 - 8.3 gm/dL CERNER MILLENNIUM Albumin 4.4 3.2 - 5.2 gm/dL CERNER MILLENNIUM AST 25 0 - 30 unit/L CERNER MILLENNIUM ALT 25 0 - 30 unit/L CERNER MILLENNIUM Alk Phos 85 40 - 104 unit/L CERNER MILLENNIUM Total Bilirubin 0.5 0.2 - 1.3 mg/dL CERNER MILLENNIUM Bili, Direct 0.1 0.0 - 0.3 mg/dL CERNER MILLENNIUM Estimated GFR 40(L) >=60 CERNER MILLENNIUM Comment: The National Kidney Disease Education Program (NKDEP) has recommended all laboratories report estimated GFR (eGFR) along with plasma creatinine measurements to assist you with recognition of early kidney disease. Caveats: ??Plasma creatinine should be at steady-state (unchanged within the past week). For patients multiply eGFR by 1.2. The MDRD equation was developed using patients between the ages of 18 and 70 years. ?? The MDRD equation has not been validated for patients < 18 years of age and should not be used to assess renal function in the pediatric population. ??The MDRD eGFR equation will also overestimate the true GFR of patients above the age of 70. ??This overestimation is variable but increases with age. At present, NKDEP does NOT recommend using the MDRD equation for drug dosing purposes and pharmacists should continue to use their current dosing methods. In addition, numerical eGFR values greater than 60 ml/min/1.73 square meters should be treated as > 60, and not an exact number due to greater inaccuracies at these higher values. Per NKDEP, they classify normal renal function as any GFR >60ml/min/1.73 square meters; chronic kidney disease when GFR <60, and renal failure when GFR <15. ??This calculation may not be valid for patients with atypical muscle mass (very lean or obese), acute renal failure, and in patients with diabetic kidney disease. References: http://nkdep.nih.gov/resources/NKDEP_Suggestn4Labs_0606_508.pdf http://www.kidney.org/professionals/kls/pdf/faq_gfr.pdf Radha K, Hamzah NA, Devante AK, Misael TS, Reji AD, Roxanne JAZMÍN. Relative performance of the MDRD and CKD-EPI equations for estimating glomerular filtration rate among patients with varied clinical presentations. Clin J Am Soc Nephrol;6:1963-72. Blood specimen (specimen) 08/19/2011 10:55 AM EDT 08/19/2011 10:58 AM EDT Narrative Resulting Agency Comment Spec In Lab Tai Martinez MD CHEMISTRY ORDERABLES [facility] * Urine Eosinophil (08/19/2011 9:34 AM EDT) Eosinophil Urine See Comment 0 - 0 [facility] Comment: TOTAL NUMBER OF LEUKOCYTES COUNTED = 77. NUMBER OF EOSINOPHILS = NONE Total Urine WBC 1 0 - 5 /HPF [facility] Urine specimen (specimen) 08/19/2011 9:34 AM EDT 08/19/2011 10:57 AM EDT Narrative Resulting Agency Comment Spec In Lab Tai Martinez MD URINE ORDERABLES Performing Organization Address City/[facility] Co de Phone Number CERNER MILLENNIUM * Protein Electrophoresis, urine, random (08/19/2011 9:34 AM EDT) U Protein Ran <6 0 - 12 mg/dL CERNER MILLENNIUM U Albumin See Note % total CERNER MILLENNIUM Comment: Total Protein concentration too low to fractionate using current electrophoretic technique. U Globulin Not Applicable % total CERNER MILLENNIUM U M Band Not Applicable None Detected % total CERNER MILLENNIUM U Scan Not Applicable CERNER MILLENNIUM Urine specimen (specimen) 08/19/2011 9:34 AM EDT 08/19/2011 10:57 AM EDT Narrative Resulting Agency Comment Spec In Lab Tai Martinez MD URINE ORDERABLES Performing Organization Address [facility] Co de Phone Number CERNER MILLENNIUM * Protein/Creatinine Ratio, urine (08/19/2011 9:34 AM EDT) U Creatinine 22 mg/dL CERNER MILLENNIUM U Protein Ran <6 0 - 12 mg/dL CERNER MILLENNIUM Prot/Cre Ratio <0.1 ratio CERNE R MILLENNIUM Urine specimen (specimen) 08/19/2011 9:34 AM EDT 08/19/2011 10:57 AM EDT Narrative Resulting Agency Comment Spec In Lab Tai Martinez MD URINE ORDERABLES Performing Organization Address City/[facility] Co de Phone Number [facility] documented in this encounter Visit Diagnoses Diagnosis Renal insufficiency- Primary Unspecified disorder of kidney and ureter documented in this encounter Care Teams [employer] Relationship Specialty Start Date End Date Marianna Skelton MD [facility] [address] [place] [address] [place] [address] PCP - General 01/09/10 09/20/13 documented as of this encounter
--- OUTSIDE RECORDS SUMMARY | 2023-09-08 13:49 | XMS_ITS | Encounter Summary ---
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 Role Phone Kaylene Pinedo MD Primary Care Provider [phone] Reason for Visit * Reason Comments Hospital Transfer Altered Mental Status * Auth/Cert Specialty Diagnoses / Procedures Referred By Leidy lemon Referred To Contact Diagnoses Disequilibrium Procedures EMERGENCY OBSVO Referral ID Status Reason Start Date Expiration Date Visits Re quested Visits Authorized [id number] 1 1 Encounter Details Date Type Department Care Team (Late st Contact Info) Description 07/12/2019 10:09 PM EDT - 07/13/2019 5:25 PM EDT Emergency [address] [place] [address] Mackenzie Weber MD [facility] [place] [address] Morro Sena III, MD [facility] [place] [address] Nazia Viera MD [facility] [place] [address] Danielito Holland MD [facility] [place] [address] Disequilibrium Discharge Disposition: Home Social History Tobacco Use [...] Sign Reading Time Taken Comments Blood Pressure 103/63 07/13/2019 7:51 AM EDT Pulse 63 07/12/2019 10:15 PM EDT Temperature 36.6 ??C (97.9 ??F) 07/13/2019 7:51 AM ED T Respiratory Rate 14 07/13/2019 7:51 AM EDT Oxygen Saturation 96% 07/13/2019 7:51 AM EDT Inhaled Oxygen Concentration - - Weight 66.2 kg (146 lb) 07/12/2019 10:15 PM EDT Height 170.2 cm (5' 7) 07/12/2019 10:15 PM EDT Body Mass Index 22.87 07/12/2019 10:15 PM EDT documented in this encounter Discharge Summaries * Griffin Ann PA - 07/13/2019 1:13 PM EDT Images from the original note were not included. Discharge Summary Patient Name: Ruthann Wolf Patient Age: 64 y.o. Language: Zambian Race: White Ethnicity: Not nor Admit date: 07/12/2019 Discharge date and time: 204:04 PM Attending Physician: Danielito Holland MD Discharge Physician: Danielito Holland MD Follow-up Recommendations for Providers: -no stroke identified this admission -MRI C-spine: Abnormal marrow signal C4 segment. Differential is broad and include both benign and malignant etiology. Recommend CT evaluation as outpatient. Discussed with patient and she would prefer to have this arranged closer to home and she will contact PCP to arrange. Inpatient Provider Contact Information: For questions regarding this document or issues related to this hospitalization on the Neurology Service, please contact the author(s) of this discharge summary through the [facility] Manager . 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 Disequilibrium Resolved Hospital Problems No resolved problems to display. Past medical History: No past medical history on file. Active Non Hospital Problems: Active Non-Hospital Problems Diagnosis ??? CKD (chronic kidney disease) ??? HTN (hypertension) ??? GERD (gastroesophageal reflux disease) History of Presentation: Ruthann Wolf??is a 64 y.o.??Right-handed female with PMH of renal insufficiency (idiopathic), asthma, insomnia who was transferred to [facility] from [facility] for evaluation of gait impairment and concern of posterior circulation stroke. ?? Patient was in her usual state of health. ??She was walking around the house around 1 PM. ??She hadsudden onset feeling of being pulled to the right as she was walking. ??Simultaneously there was a low-grade headache throughout her head. ??There was an uneasy feeling or Woozy??feeling but not lightheadedness, not the room spinning. ??The sensation was present when she laid down but the pull tothe right was not as strong. ??It waxed and waned in severity. ??There was some associated low-grade nausea but no vomiting. ??No diplopia no loss of vision. ??No paresthesias no focal weakness. ??Nofacial droop no slurring of speech. ?? She believes many years ago she did have vertigo but this was a little different. ??While at [facility] they gave her meclizine which she said had good effect on her symptoms. ??[facility] she felt that her symptoms had nearly resolved. ??While at [facility] she had a CT of the head that did not show any hemorrhage or large completed infarcts. ??Because of her contrast allergy she could not get a CT angiogram so she was transferred here for further management. ?? She had migraines decades ago but now she only gets tension-like headaches every few weeks. ??The headache present during her symptoms today was very different from her typical tension-like headaches Physical Exam at Admission: Gen: Patient of apparent stated age, well nourished, well developed, awake, alert, NAD Neck: Supple, no meningismus, no carotid bruit CV: + S1, S2,??RRR,??no murmur Resp: CTA??B/L?? Abd:??Soft Ext: No edema. No bony deformity MS: AAOx4, clear language, no dysarthria, follows commands CN: ?PERRL, EOMI, visual cavazos full, 2 beats of horizontal nystagmus on rightward gaze. ?Facial sensation intact, no facial asymmetry ?Hearing intact to??voice ?Palate elevates symmetrically, tongue protrudes midline ?SCM and trap strength intact Motor: ??Normal bulk and tone. ?UE: ?5/5 R, 5/5 L ?Arm abduction at shoulder ?5/5 R, 5/5 L ?Elbow extension ?5/5 R, 5/5 L ?Elbow flexion ?5/5 R, 5/5 L ?Mailer Apprentice ?LE: ?5/5 R, 5/5 L ?Hip flexion ?5/5 R, 5/5 L ?Knee extension ?5/5 R, 5/5 L ?Knee flexion ?5/5 R, 5/5 L ?Foot dorsiflexion ?5/5 R, 5/5 L ?Foot plantar flexion Sensation: Intact to light touch, pinprick and vibration sensation Reflexes: ?DTRs ?Mercedez sign on the left ?2+ R, 2+ L ??Biceps ?2+ R, 2+ L ??Brachioradialis ?2+ R, 2+ L ??Triceps ?2+ R, 2+ L ??Patellar ?1+ R,??1+ L ??Achilles tendon ?Toes - R down, L down? Coordination:?Lisa-Hallpike maneuver negative Finger to nose intact,??no dysmetria ?Rapid alternating movements??&??finger tapping smooth and symmetric ?Heel-parsons intact ?No tremor Gait:??Stable and steady. ??Trouble with tandem.?Romberg positive NIH Stroke Scale: (bold applicable choices) NIH Stroke Scale at Initial Evaluation: ?? 1.a. Level of consciousness: 0-Alert 1-Not alert, but arousable with minimal stimulation 2-Not alert, requires repeat stimulation to attend 3-Coma 1.b. Ask patient the month and their age: 0-Answers both correctly 1-Answers one correctly 2-Both incorrect 1.c. Ask patient to open and close eyes: 0-Obeys both correctly 1-Obeys one correctly 2-Both incorrect 2. Best gaze (horizontal eye movement): 0-Normal 1-Partial gaze palsy 2-Forced deviation 3. Visual field testin-No visual field loss 1-Partial hemianopia 2-Complete hemianopia 3-Bilateral hemianopia (blind including cortical blindness) 4. Facial paresis (Ask patient to show teeth or raise eyebrows and close eyes tightly): 0-Normal symmetrical movement 1-Minor paralysis (flattened nasolabial fold, asymmetry on smiling) 2-Partial paralysis (total or near paralysis of lower face) 3-Complete paralysis of one or both sides (absence of facial movement in the upper and lower face) 5. Motor function right arm: 0-Normal (extends arm 90 degrees for 10 seconds without drift) 1-Drift 2-Some effort against gravity 3-No effort against gravity 4-No movement UT-Untestable (Joint fused or limb amputated) 5. Motor function- left arm: 0-Normal (extends arm 90 degrees for 10 seconds without drift) 1-Drift 2-Some effort against gravity 3-No effort against gravity (but baseline) 4-No movement UT-Untestable (Joint fused or limb amputated) 6. Motor function right le-Normal (extends leg 30 degrees for 5 seconds without drift) 1-Drift 2-Some effort against gravity 3-No effort against gravity 4-No movement UT-Untestable (Joint fused or limb amputated) 6. Motor function-left le-Normal (extends leg 30 degrees for 5 seconds without drift) 1-Drift 2-Some effort against gravity 3-No effort against gravity 4-No movement UT-Untestable (Joint fused or limb amputated) 7. Limb ataxia: 0-No ataxia 1-Present in one limb 2-Present in two limbs 8. Sensory (Use pinprick to test arms, legs, trunk and face compare side to side): 0-Normal 1-Mild to moderate decrease in sensation 2-Severe to total sensory loss 9. Best language (describe picture, name items, read sentences): 0-No aphasia 1-Mild to moderate aphasia 2-Severe aphasia 3-Mute 10. Dysarthria (read several words): 0-Normal articulation 1-Mild to moderate slurring of words 2-Near unintelligible or unable to speak UT-Intubated or other physical barrier 11. Extinction and inattention: 0-Normal 1-Inattention or extinction to bilateral simultaneous in one of the sensory modalities 2-Severe telma-inattention or telma-inattention to more than one modality ?? TOTAL SCORE: 0 ?? Hospital Course:: Ruthann Wolf is a 64 y.o. female who was admitted to the neurology service for further evaluation of dysequilibrium and gait impairment concerning for posterior circulation ischemia. Neurologicalexamination on admission was pertinent for positive rhomberg with patient sawing to the right however symptoms soon resolved without recurrence. Patient was monitored with frequent checks of vitals and neurological status. Telemetry monitoring showed no cardiac arrhythmia. Permissive HTN was allowed, with labetalol administered prn for SBP >220. MRI Brain demonstrated no acute infarct or otherintracranial abnormality. MRI C spine identified abnormal marrow signal C4 segment. Vascular imaging showed no flow limiting stenosis or occlusion. TTE from [facility] was reviewed - this can be followed-up with CT evaluation as outpatient. See detailed reports as below. Most likely etiology of stroke was possibly migraine associated dysequilibrium as symptoms occurred in the context of headache. No cer ebrovascular or central nervous system cause of her symptoms was identified. Symptoms resolved without recurrence. No rehab needs identified. She was instructed to follow-up with PCP. Neurology can be re-engaged as outpatient if necessary. Urinalysis revealed bacteriuria however patient denied symptoms and therefore was not treated. Culture pending at time of discharge. Patient returned to prior level of function, rehabilitation not indicated at this time. Operations & Procedures: none Consultations: 1. PT/OT/SL Diagnostic Tests & Neuroimaging: Date Study Results MRI BRAIN / MRA Head and Neck / MRI C spine Results for orders placed during the hospital encounterof 07/12/19 MRI Brain wo Contrast Narrative EXAMINATION: MRI BRAIN WO CONTRAST, MRI CERVICAL SPINE WO CONTRAST (GENERIC), MRI ANGIOGRAM NECK WWO CONTRAST (GENERIC), MRI ANGIOGRAM HEAD WO CONTRAST (GENERIC) CLINICAL HISTORY: Neuro deficit, acute, stroke suspected ataxia, positive romberg, stroke work up (accession [id number]), ataxia, positive romberg positive varela on left. assess for myelopathy (accession [id number]), ataxia, positive romberg, stroke work up (accession [id number]), ataxia, positive romberg, stroke work up (accession [id number]) TECHNIQUE: MRI of the brain performed without intravenous contrast administration. MR angiogram head noncontrast MR angiogram neck without with gadolinium. MRI cervical spine noncontrast 13 cc dotarem administered IV for MR angiogram neck. COMPARISON: CT head dated 07/12/2019 FINDINGS: Brain MRI: No restricted diffusion to suggest an acute infarct. No hemoglobin degradation products within the brain parenchyma on the susceptibility sequence. Skull base soft tissues demonstrate prominence of nasopharyngeal soft tissue and prominence of soft tissue projecting the right lateral pharyngeal recess. Direct visualization recommended. Orbits are unremarkable. MRA head: Normal appearance of the intracranial portion of the vertebrobasilar system and posterior circulation branches. Normal appearance of the intracranial portion of the internal carotid arteries and anterior circulation branches. Small patent anterior communicating artery. No focal stenosis, caliber change or aneurysm. MRA NECK: Normal appearance of three-vessel arch and great vessels. Normal appearance of the cervical vertebral arteries bilaterally. Normal course and caliber. Right carotid: Normal appearance of cervical right common and internal carotid artery. Left carotid: Normal appearance cervical left common and internal carotid artery. MRI cervical spine: There is abnormal increased signal intensity on T2 sequence and diminished signal intensity on T1-weighted sequence projecting in the C4 vertebral body. There is no other aggressive marrow lesion identified. There is disc space degenerative change with disc space narrowing and endplate proliferative and reactive changes at C5-6. There is mild retrolisthesis of C5 on C6. Craniocervical junction is normal. No cord signal abnormality. Exam limited by patient motion. C2-3: Normal C3-4: No disc protrusion central stenosis or gross foraminal narrowing. C4-5: There is evidence of a broad central disc protrusion and left greater than right uncinate proliferative changes. Moderate left and mild right foraminal narrowing. Mild overall effacement of the ventral thecal sac. C5-6: Mild overall central stenosis secondary to retrolisthesis and broad-based disc protrusion. Moderate bilateral foraminal narrowing. Exam limited by motion at this level. C6-C7: No gross central stenosis. No gross foraminal narrowing. C7-T1: No disc protrusion central stenosis or foraminal narrowing.. Impression MRI brain: No acute intracranial abnormality. Prominent [...] 4. Disc protrusions C5-6 greater than C4-5. Thank you for letting us participate in the care of this patient. For questions regarding this report, please contact the number below. Results for orders placed during the hospital encounter of 07/12/19 MRI Angiogram Head wo Contrast (Generic) Narrative EXAMINATION: MRI BRAIN WO CONTRAST, MRI CERVICAL SPINE WO CONTRAST (GENERIC), MRI ANGIOGRAM NECK WWO CONTRAST (GENERIC), MRI ANGIOGRAM HEAD WO CONTRAST (GENERIC) CLINICAL HISTORY: Neuro deficit, acute, stroke suspected ataxia, positive romberg, stroke work up (accession [id number]), ataxia, positive romberg positive varela on left. assess for myelopathy (accession [id number]), ataxia, positive romberg, stroke work up (accession [id number]), ataxia, positive romberg, stroke work up (accession [id number]) TECHNIQUE: MRI of the brain performed without intravenous contrast administration. MR angiogram head noncontrast MR angiogram neck without with gadolinium. MRI cervical spine noncontrast 13 cc dotarem administered IV for MR angiogram neck. COMPARISON: CT head dated 07/12/2019 FINDINGS: Brain MRI: No restricted diffusion to suggest an acute infarct. No hemoglobin degradation products within the brain parenchyma on the susceptibility sequence. Skull base soft tissues demonstrate prominence of nasopharyngeal soft tissue and prominence of soft tissue projecting the right lateral pharyngeal recess. Direct visualization recommended. Orbits are unremarkable. MRA head: Normal appearance of the intracranial portion of the vertebrobasilar system and posterior circulation branches. Normal appearance of the intracranial portion of the internal carotid arteries and anterior circulation branches. Small patent anterior communicating artery. No focal stenosis, caliber change or aneurysm. MRA NECK: Normal appearance of three-vessel arch and great vessels. Normal appearance of the cervical vertebral arteries bilaterally. Normal course and caliber. Right carotid: Normal appearance of cervical right common and internal carotid artery. Left carotid: Normal appearance cervical left common and internal carotid artery. MRI cervical spine: There is abnormal increased signal intensity on T2 sequence and diminished signal intensity on T1-weighted sequence projecting in the C4 vertebral body. There is no other aggressive marrow lesion identified. There is disc space degenerative change with disc space narrowing and endplate proliferative and reactive changes at C5-6. There is mild retrolisthesis of C5 on C6. Craniocervical junction is normal. No cord signal abnormality. Exam limited by patient motion. C2-3: Normal C3-4: No disc protrusion central stenosis or gross foraminal narrowing. C4-5: There is evidence of a broad central disc protrusion and left greater than right uncinate proliferative changes. Moderate left and mild right foraminal narrowing. Mild overall effacement of the ventral thecal sac. C5-6: Mild overall central stenosis secondary to retrolisthesis and broad-based disc protrusion. Moderate bilateral foraminal narrowing. Exam limited by motion at this level. C6-C7: No gross central stenosis. No gross foraminal narrowing. C7-T1: No disc protrusion central stenosis or foraminal narrowing.. Impression MRI brain: No acute intracranial abnormality. Prominent [...] 4. Disc protrusions C5-6 greater than C4-5. Thank you for letting us participate in the care of this patient. For questions regarding this report, please contact the number below. Results for orders placed during the hospital encounter of 07/12/19 MRI Angiogram Neck wwo Contrast (Generic) Narrative EXAMINATION: MRI BRAIN WO CONTRAST, MRI CERVICAL SPINE WO CONTRAST (GENERIC), MRI ANGIOGRAM NECK WWO CONTRAST (GENERIC), MRI ANGIOGRAM HEAD WO CONTRAST (GENERIC) CLINICAL HISTORY: Neuro deficit, acute, stroke suspected ataxia, positive romberg, stroke work up (accession [id number]), ataxia, positive romberg positive varela on left. assess for myelopathy (accession [id number]), ataxia, positive romberg, stroke work up (accession [id number]), ataxia, positive romberg, stroke work up (accession [id number]) TECHNIQUE: MRI of the brain performed without intravenous contrast administration. MR angiogram head noncontrast MR angiogram neck without with gadolinium. MRI cervical spine noncontrast 13 cc dotarem administered IV for MR angiogram neck. COMPARISON: CT head dated 07/12/2019 FINDINGS: Brain MRI: No restricted diffusion to suggest an acute infarct. No hemoglobin degradation products within the brain parenchyma on the susceptibility sequence. Skull base soft tissues demonstrate prominence of nasopharyngeal soft tissue and prominence of soft tissue projecting the right lateral pharyngeal recess. Direct visualization recommended. Orbits are unremarkable. MRA head: Normal appearance of the intracranial portion of the vertebrobasilar system and posterior circulation branches. Normal appearance of the intracranial portion of the internal carotid arteries and anterior circulation branches. Small patent anterior communicating artery. No focal stenosis, caliber change or aneurysm. MRA NECK: Normal appearance of three-vessel arch and great vessels. Normal appearance of the cervical vertebral arteries bilaterally. Normal course and caliber. Right carotid: Normal appearance of cervical right common and internal carotid artery. Left carotid: Normal appearance cervical left common and internal carotid artery. MRI cervical spine: There is abnormal increased signal intensity on T2 sequence and diminished signal intensity on T1-weighted sequence projecting in the C4 vertebral body. There is no other aggressive marrow lesion identified. There is disc space degenerative change with disc space narrowing and endplate proliferative and reactive changes at C5-6. There is mild retrolisthesis of C5 on C6. Craniocervical junction is normal. No cord signal abnormality. Exam limited by patient motion. C2-3: Normal C3-4: No disc protrusion central stenosis or gross foraminal narrowing. C4-5: There is evidence of a broad central disc protrusion and left greater than right uncinate proliferative changes. Moderate left and mild right foraminal narrowing. Mild overall effacement of the ventral thecal sac. C5-6: Mild overall central stenosis secondary to retrolisthesis and broad-based disc protrusion. Moderate bilateral foraminal narrowing. Exam limited by motion at this level. C6-C7: No gross central stenosis. No gross foraminal narrowing. C7-T1: No disc protrusion central stenosis or foraminal narrowing.. Impression MRI brain: No acute intracranial abnormality. Prominent [...] 4. Disc protrusions C5-6 greater than C4-5. Thank you for letting us participate in the care of this patient. For questions regarding this report, please contact the number below. Labs: Lipid Panel No results found for: HA1C Last wbc, hgb, hct plt Recent Labs 07/13/19 0020 WBC 5.6 HGB 12.2 HCT 37.6 Last 3 Lytes Recent Labs 07/13/19 0020 NA 143 K 3.9 CL 108* CO2 21* BUN 17 CREATININE 1.23* Pending Studies and Lab Data: Vital Signs at Discharge: BP: 103/63, Heart Rate: 63, Temp: 36.6 ??C (97.9 ??F), Resp: 14, BMI (Calculated): 22.86 Height: 170.2 cm (5' 7) (07/12/192214) Weight: 66.2 kg (146 lb) (07/12/192214) Functional and Cognitive Status: baseline Physical Exam at Discharge: Gen: Patient of apparent stated age, well nourished, well developed, awake, alert, NAD Neck: Supple, no meningismus, no carotid bruit CV: + S1, S2,??RRR,??no murmur Resp: CTA??B/L?? Abd:??Soft Ext: No edema. No bony deformity MS: AAOx4, clear language, no dysarthria, follows commands CN: ?PERRL, EOMI, visual cavazos full ?Facial sensation intact, no facial asymmetry ?Hearing intact to??voice ?Palate elevates symmetrically, tongue protrudes midline ?SCM and trap strength intact Motor: ??Normal bulk and tone. ?UE: ?5/5 R, 5/5 L ?Arm abduction at shoulder ?5/5 R, 5/5 L ?Elbow extension ?5/5 R, 5/5 L ?Elbow flexion ?5/5 R, 5/5 L ?Mailer Apprentice ?LE: ?5/5 R, 5/5 L ?Hip flexion ?5/5 R, 5/5 L ?Knee extension ?5/5 R, 5/5 L ?Knee flexion ?5/5 R, 5/5 L ?Foot dorsiflexion ?5/5 R, 5/5 L ?Foot plantar flexion Sensation: Intact to light touch, pinprick and vibration sensation Reflexes: ?deferred? Coordination:? Finger to nose intact,??no dysmetria ?Rapid alternating movements??&??finger tapping smooth and symmetric ?Heel-parsons intact ?No tremor Gait:??Steady Discharge Conditions/Prognosis: Stable/ good Discharge to: Home Updated Allergies/ADRs: Allergies Allergen Reactions ??? Cis Free Text [...] Penicillins CIS - Unknown, CIS - Unknown Immunizations Given this Hospitalization: There is no immunization history on file for this patient. Discharge Medications: Your Medications Continued medications, unchanged Dose Details acetaminophen 500 mg Tab Commonly known as: Tylenol Take by mouth as needed. 1 - 2 tablets = 1,000 mg As needed Refills: 0 cetirizine 10 mg Tab Commonly known as: ZyrTEC 10 MG = 1 Tablet(s), PO, Once daily,PRN Refills: 0 cholecalciferol (Vitamin D3) 125 mcg (5,000 unit) Tab Take by mouth. Refills: 0 COD LIVER OIL ORAL Take 1 capsule by mouth daily. 1 capsule Refills: 0 EpiPen 0.3 mg/0.3 mL Atin 0.3 MG/0.3 ML, IM, as directed Generic drug: EPINEPHrine Refills: 0 estradioL 0.01 % (0.1 mg/gram) Crea Commonly known as: ESTRACE Place 2 g vaginally daily. 2 g Refills: 0 fluticasone propionate 110 mcg/actuation Hfaa Commonly known as: FLOVENT Inhale 1 puff into the lungs 2 times daily. 1 puff Refills: 0 levalbuterol 0.63 mg/3 mL Nebu Commonly known as: XOPENEX Take 1 ampule by nebulization every 4 hours as needed. 1 ampule Refills: 0 MULTI-VITAMIN ORAL Take by mouth. Refills: 0 PHOSPHATIDYL SERINE (BULK) MISC by Misc.(Non-Drug; Combo Route) route. Refills: 0 PROBIOTIC & ACIDOPHILUS ORAL Take by mouth. Refills: 0 traZODone 50 mg Tab Commonly known as: Desyrel Take 50 mg by mouth nightly. 50 mg Refills: 0 Vitamins B Complex Cap Take 1 capsule by mouth daily. Generic drug: b complex vitamins 1 capsule Refills: 0 Smoking Status at Discharge: Social History Tobacco Use Smoking Status Never Smoker SECONDARY STROKE PREVENTION: No stroke this admission Instructions Given to Patient at Discharge: Patient Instructions Patient Instructions: You were admitted to the neurology service at [facility] Your Diagnosis: dysequilibrium, possibly migraine associated -NO stroke identified this admission -No medication changes at this time -Seek medical attention if symptoms return -follow-up with PCP to arrange CT neck as outpatient -Call [phone] to contact neurology clinic if unable to arrange CT scan and this study can be arranged through [facility]. - Work close with your primary care provider (PCP) with monitoring your blood pressure, blood sugarand cholesterol. - Lifestyle modifications should include: taking all medications as prescribed, smoking cessation or staying away from others who are smoking to avoid second hand smoke, limiting alcohol intake, maintaining a normal/healthy weight, adhering to a healthy diet (low-fat, low-sodium, high intake of fresh fruits and vegetables, limiting red meat), and engaging in regular physical activity ??? Call 911 or your local EMS if you have sudden weakness or numbness in your face or one of your limbs, slurred speech, loss of vision, or difficulty speaking. It is important to seek medical attention as soon as possible, as these symptoms could be related to a new stroke. ??? Diet: we recommend a heart healthy diet: low fat, low cholesterol, low concentrated sweets. ??? Activity Restrictions: As tolerated. ??? Driving Restrictions: No new restrictions. However, you should not drive if symptoms return. Diabetes Follow-up and Instructions: 1. Continue to monitor blood sugars with goal BG <120 and HAIC <7.0. 2. Know your cholesterol levels and the goal you are striving for. Your goal LDL is <100. 3. Continue to try eating healthy, which includes a low fat, low cholesterol, high fiber, no added sweets diet. 4. Exercising regularly is important. The goal for most people is 30 minutes of exercise, 3-4 timesper week. Check with your Health care Provider for specific guidelines. 5. Monitor blood pressure weekly: Goal for most patients is <130/70. Check with your Health CareProvider for specific guidelines. Continue to take all medications daily. 6. Remember to have an annual ophthalmic (eye) examination 7. Remember to have a quarterly foot examination done by your Health care provider. 8. Ask your Health care Provider about annual screening for urine micro-albumin. 9. Please plan quarterly follow-up visits for diabetes management with your Health care Provider. 10. Consider Diabetes Education in your community; [facility] offers a diabetes program called ???Jump Start?? . Call [facility] for more information. Know Your Numbers! Blood Pressure BP Readings from Last 3 Encounters: 07/13/19 103/63 10/28/13 118/66 09/16/12 126/50 HA1C No results found for: HA1C Cholesterol Below is an explanation of each of the cholesterol test results. Total cholesterol: This test is best when below 200. It can be improved primarily by a low fat diet. HDL (good cholesterol): The higher the better. It is best when above 50. It is primarily genetically determined but can be increased with exercise. LDL (bad cholesterol): this test is best when below 130 (or below 100 if you have heart disease or below 70 if you have had a stroke or TIA). It can be lowered by a low fat diet. Triglycerides: This test is best when below 180. It can be lowered by a low fat diet, avoidance of sweets and weight loss. ??? Follow-up: ??? Primary Care Provider: Please follow up with your Primary Care Provider within one to 2 weeks of discharge. For questions regarding this document or issues relating to this hospitalization on the Neurology Service, please contact the author(s) of this discharge summary through the [facility] Road Manager . General Instructions None Primary Care Provider: Kaylene Pinedo MD [address] / [place] [address] Discharge References/Attachments None documented in this encounter Discharge Instructions * Patient Instructions* Griffin Ann PA - 07/13/2019 4:00 PM EDT Images from the original note were not included. Patient Instructions: You were admitted to the neurology service at [facility] Your Diagnosis: dysequilibrium, possibly migraine associated -NO stroke identified this admission -No medication changes at this time -Seek medical attention if symptoms return -follow-up with PCP to arrange CT neck as outpatient -Call [phone] to contact neurology clinic if unable to arrange CT scan and this study can be arranged through [facility]. - Work close with your primary care provider (PCP) with monitoring your blood pressure, blood sugarand cholesterol. - Lifestyle modifications should include: taking all medications as prescribed, smoking cessation or staying away from others who are smoking to avoid second hand smoke, limiting alcohol intake, maintaining a normal/healthy weight, adhering to a healthy diet (low-fat, low-sodium, high intake of fresh fruits and vegetables, limiting red meat), and engaging in regular physical activity ??? Call 911 or your local EMS if you have sudden weakness or numbness in your face or one of your limbs, slurred speech, loss of vision, or difficulty speaking. It is important to seek medical attention as soon as possible, as these symptoms could be related to a new stroke. ??? Diet: we recommend a heart healthy diet: low fat, low cholesterol, low concentrated sweets. ??? Activity Restrictions: As tolerated. ??? Driving Restrictions: No new restrictions. However, you should not drive if symptoms return. Diabetes Follow-up and Instructions: 1. Continue to monitor blood sugars with goal BG <120 and HAIC <7.0. 2. Know your cholesterol levels and the goal you are striving for. Your goal LDL is <100. 3. Continue to try eating healthy, which includes a low fat, low cholesterol, high fiber, no added sweets diet. 4. Exercising regularly is important. The goal for most people is 30 minutes of exercise, 3-4 timesper week. Check with your Health care Provider for specific guidelines. 5. Monitor blood pressure weekly: Goal for most patients is <130/70. Check with your Health CareProvider for specific guidelines. Continue to take all medications daily. 6. Remember to have an annual ophthalmic (eye) examination 7. Remember to have a quarterly foot examination done by your Health care provider. 8. Ask your Health care Provider about annual screening for urine micro-albumin. 9. Please plan quarterly follow-up visits for diabetes management with your Health care Provider. 10. Consider Diabetes Education in your community; [facility] offers a diabetes program called ???Jump Start?? . Call [facility] for more information. Know Your Numbers! Blood Pressure BP Readings from Last 3 Encounters: 07/13/19 103/63 10/28/13 118/66 09/16/12 126/50 HA1C No results found for: HA1C Cholesterol Below is an explanation of each of the cholesterol test results. Total cholesterol: This test is best when below 200. It can be improved primarily by a low fat diet. HDL (good cholesterol): The higher the better. It is best when above 50. It is primarily genetically determined but can be increased with exercise. LDL (bad cholesterol): this test is best when below 130 (or below 100 if you have heart disease or below 70 if you have had a stroke or TIA). It can be lowered by a low fat diet. Triglycerides: This test is best when below 180. It can be lowered by a low fat diet, avoidance of sweets and weight loss. ??? Follow-up: ??? Primary Care Provider: Please follow up with your Primary Care Provider within one to 2 weeks of discharge. For questions regarding this document or issues relating to this hospitalization on the Neurology Service, please contact the author(s) of this discharge summary through the [facility] Road Manager . documented in this encounter Medications at Time of Discharge Medication Sig Dispensed Refills Start Date End Date estradiol (ESTRACE) 0.01 % (0.1 mg/gram) CreamIndications:CKD [...] 0.3 MG/0.3 ML, IM, as directed 03/13/2010 b complex vitamins CapsuleIndications:CKD (chronic kidney disease), stage III Take 1 capsule by mouth daily. 07/17/2021 PHOSPHATIDYL SERINE, BULK, MISCIndications:CKD (chronic kidney disease), stage III by Misc.(Non-Drug; Combo Route) route. 07/17/2021 Cholecalciferol, Vitamin D3, 5,000 unit TabletIndications:CKD (chronic kidney disease), stage III Take by mouth. 2021 fluticasone (FLOVENT) 110 mcg/actuation inhaler Inhale 1 puff into the lungs 2 times daily. 07/17/2021 MULTI-VITAMIN ORAL Take by mouth. 023 LACTOBAC CMB #3/FOS/PANTETHINE (PROBIOTIC & ACIDOPHILUS ORAL) Take by mouth. 07/18/19 COD LIVER OIL ORALIndications:Renal insufficiency Take 1 capsule by mouth daily. 07/17/2021 cetirizine (ZYRTEC) 10 mg tablet 10 MG = 1 Tablet(s), PO, Once daily,PRN 03/13/2010 05/13/2022 documented as of this encounter Progress Notes * Negra Harris RN - 07/13/2019 5:20 PM EDT Ruthann Wolf discharged to Home by private car with Family member. All belongings sent with patient. HANY removed, skin free from pressure ulcers. Discharge instructions, medications, and follow-up appointments reviewed, education provided on signs/symptoms of stroke, all questions answered. Patient instructed to call with concerns. documented in this encounter H&P Notes * Danielito Holland MD - 07/13/2019 4:54 PM EDT Neurology Staff Note See full note to follow. I saw her this morning and she had no ongoing neurological symptoms. Her MRI of the brain and cervical spine were reviewed and were normal except for small deep left hemispheric white matter changes and some abnormal signal in the bone marrow of the C4 vertebral body that is nonspecific. She is ready to be discharged home today. Her length of stay was less than initially anticipated given the absence of stroke and her rapid improvement. * Ruby Keller MD - 07/13/2019 3:00 AM EDT Neurology Admission History and Physical Patient name: Ruthann Wolf Date of : 1955 PCP: Kaylene Pinedo MD Onset of symptoms (if witnessed) or time of symptom discovery: 1PM on 07/12 Last known well: 1PM on 07/12 Stroke Alert Activated: N/A Neurology at Bedside: N/A ? CC: Balance impairment ?? HPI: Ruthann Wolf is a 64 y.o. Right-handed female with PMH of renal insufficiency (idiopathic), asthma, insomnia who was transferred to [facility] from [facility] for evaluation of gait impairment and concern of posterior circulation stroke. ?? Patient was in her usual state of health. She was walking around the house around 1 PM. She had sudden onset feeling of being pulled to the right as she was walking. Simultaneously there was a low-grade headache throughout her head. There was an uneasy feeling or Woozy feeling but not lightheadedness, not the room spinning. The sensation was present when she laid down but the pull to the right was not as strong. It waxed and waned in severity. There was some associated low-grade nausea but novomiting. No diplopia no loss of vision. No paresthesias no focal weakness. No facial droop no slurring of speech. ?? She believes many years ago she did have vertigo but this was a little different. While at [facility] they gave her meclizine which she said had good effect on her symptoms. By the time she arrived to [facility] she felt that her symptoms had nearly resolved. While at [facility] she had a CT of the head that did not show any hemorrhage or large completed infarcts. Because of her contrast allergy she could not get a CT angiogram so she was transferred here for further management. ?? She had migraines decades ago but now she only gets tension-like headaches every few weeks. The headache present during her symptoms today was very different from her typical tension-like headaches Current Medications: Scheduled Meds: ??? sodium chloride 0.9 % (flush) 5 mL Intravenous BID ??? senna-docusate 2 tablet Oral BID ??? polyethylene glycol (MIRALAX)oral powder 17 g Oral Daily ??? enoxaparin 40 mg Subcutaneous Nightly ??? aspirin 81 mg Oral Daily Continuous Infusions: ??? sodium chloride 0.9% 1,000 mL (07/13/19526) PRN Meds:.albuterol, sodium chloride 0.9 % (flush), lidocaine, magnesium hydroxide, bisacodyL, labetalol, enalaprilat, acetaminophen OR acetaminophen OR acetaminophen Past Medical & Surgical History: No past medical history on file. No past surgical history on file. Home Medications: No current facility-administered medications on file prior to encounter. Current Outpatient Medications on File Prior to Encounter Medication Sig Dispense Refill ??? estradiol (ESTRACE) 0.01 % (0.1 mg/gram) Cream Place 2 g vaginally daily. ??? b complex vitamins (VITAMIN B COMPLEX) Capsule Take 1 capsule by mouth daily. ??? PHOSPHATIDYL SERINE, BULK, MISC by Misc.(Non-Drug; Combo Route) route. ??? Cholecalciferol, Vitamin D3, 5,000 unit Tablet Take by mouth. ??? levalbuterol (XOPENEX) 0.63 mg/3 mL nebulizer solution Take 1 ampule by nebulization every 4 hours as needed. ??? fluticasone (FLOVENT) 110 mcg/actuation inhaler Inhale [...] Take 50 mg by mouth nightly. ??? cetirizine (ZYRTEC) 10 mg tablet 10 MG = 1 Tablet(s), PO, Once daily,PRN ??? epiNEPHrine (EPIPEN) 0.3 mg/0.3 mL injection 0.3 MG/0.3 ML, IM, as directed Allergy: Allergies Allergen Reactions ??? Cis Free Text Allergy peanuts,ham,rice,nuts,soy seeds,wheat. ??? Cis Free Text Allergy muscle relaxants. ??? Cis Free Text Allergy many antidepressants. ??? Cis Free Text Allergy many antianxiety. ??? Cis Free Text Allergy multiple foods. ??? Corticosteroids (Glucocorticoids) ??? Erythromycin Base ??? Milk ??? Milk Based Formulas ??? Penicillins CIS - Unknown, CIS - Unknown Family History: No family history on file. 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 Marital status: Spouse name: Not on file ??? Number of children: Not on file ??? Years of education: Not on file ??? Highest education level: Not on file Occupational History ??? Not on file Social Needs ??? Financial resource strain: Not on file ??? Food insecurity Worry: Not on file Inability: Not on file ??? Transportation needs Medical: Not on file Non-medical: Not on file Tobacco Use ??? Smoking status: Never Smoker ??? Smokeless tobacco: Never Used Substance and Sexual Activity ??? Alcohol use: Never Frequency: Never ??? Drug use: Never ??? Sexual activity: Not Currently Partners: Male control/protection: Post-menopausal Lifestyle ??? Physical activity Days per week: Not on file Minutes per session: Not on file ??? Stress: Not on file Relationships ??? Social connections Talks on phone: Not on file Gets together: Not on file Attends anabaptist service: Not on file Active member of club or organization: Not on file Attends meetings of clubs or organizations: Not on file Relationship status: Not on file ??? Intimate partner violence Fear of current or ex partner: Not on file Emotionally abused: Not on file Physically abused: Not on file Forced sexual activity: Not on file Other Topics Concern ??? Not on file Social History Narrative ??? Not on file Review of systems: Constitutional: No fevers or chills Eyes: No vision changes, no diplopia, no blurry vision ENT: No rhinorrhea or pharyngitis, no meningismus CV: No chest pain or palpitations Resp: No cough, no shortness of breath GI: No nausea, vomiting, diarrhea or constipation : No dysuria, no incontinence Heme: No bleeding or bruising Endo: No polyuria or cold intolerance Neuro: See HPI Psych: No depression, normal sleep [x] Review of systems otherwise negative Physical Exam: Vitals: Temp: [36.4 ??C (97.5 ??F)-37.2 ??C (99 ??F)] Heart Rate: [63] Resp: [18] BP: (116-167)/(64-87) SpO2: [97 %-100 %] Heart Rate from SpO2: [55 bpm-70 bpm] Gen: Patient of apparent stated age, well nourished, well developed, awake, alert, NAD Neck: Supple, no meningismus, no carotid bruit CV: + S1, S2, RRR, no murmur Resp: CTA B/L Abd: Soft Ext: No edema. No bony deformity MS: AAOx4, clear language, no dysarthria, follows commands CN: PERRL, EOMI, visual cavazos full, 2 beats of horizontal nystagmus on rightward gaze. Facial sensation intact, no facial asymmetry Hearing intact to voice Palate elevates symmetrically, tongue protrudes midline SCM and trap strength intact Motor: Normal bulk and tone. UE: 5/5 R, 5/5 L Arm abduction at shoulder 5/5 R, 5/5 L Elbow extension 5/5 R, 5/5 L Elbow flexion 5/5 R, 5/5 L Mailer Apprentice LE: 5/5 R, 5/5 L Hip flexion 5/5 R, 5/5 L Knee extension 5/5 R, 5/5 L Knee flexion 5/5 R, 5/5 L Foot dorsiflexion 5/5 R, 5/5 L Foot plantar flexion Sensation: Intact to light touch, pinprick and vibration sensation Reflexes: DTRs Mercedez sign on the left 2+ R, 2+ L Biceps 2+ R, 2+ L Brachioradialis 2+ R, 2+ L Triceps 2+ R, 2+ L Patellar 1+ R, 1+ L Achilles tendon Toes - R down, L down Coordination: Lisa-Hallpike maneuver negative Finger to nose intact, no dysmetria Rapid alternating movements & finger tapping smooth and symmetric Heel-parsons intact No tremor Gait: Stable and steady. Trouble with tandem. Romberg positive NIH Stroke Scale: (bold applicable choices) NIH Stroke Scale at Initial Evaluation: 1.a. Level of consciousness: 0-Alert 1-Not alert, but arousable with minimal stimulation 2-Not alert, requires repeat stimulation to attend 3-Coma 1.b. Ask patient the month and their age: 0-Answers both correctly 1-Answers one correctly 2-Both incorrect 1.c. Ask patient to open and close eyes: 0-Obeys both correctly 1-Obeys one correctly 2-Both incorrect 2. Best gaze (horizontal eye movement): 0-Normal 1-Partial gaze palsy 2-Forced deviation 3. Visual field testin-No visual field loss 1-Partial hemianopia 2-Complete hemianopia 3-Bilateral hemianopia (blind including cortical blindness) 4. Facial paresis (Ask patient to show teeth or raise eyebrows and close eyes tightly): 0-Normal symmetrical movement 1-Minor paralysis (flattened nasolabial fold, asymmetry on smiling) 2-Partial paralysis (total or near paralysis of lower face) 3-Complete paralysis of one or both sides (absence of facial movement in the upper and lower face) 5. Motor function right arm: 0-Normal (extends arm 90 degrees for 10 seconds without drift) 1-Drift 2-Some effort against gravity 3-No effort against gravity 4-No movement UT-Untestable (Joint fused or limb amputated) 5. Motor function- left arm: 0-Normal (extends arm 90 degrees for 10 seconds without drift) 1-Drift 2-Some effort against gravity 3-No effort against gravity (but baseline) 4-No movement UT-Untestable (Joint fused or limb amputated) 6. Motor function right le-Normal (extends leg 30 degrees for 5 seconds without drift) 1-Drift 2-Some effort against gravity 3-No effort against gravity 4-No movement UT-Untestable (Joint fused or limb amputated) 6. Motor function-left le-Normal (extends leg 30 degrees for 5 seconds without drift) 1-Drift 2-Some effort against gravity 3-No effort against gravity 4-No movement UT-Untestable (Joint fused or limb amputated) 7. Limb ataxia: 0-No ataxia 1-Present in one limb 2-Present in two limbs 8. Sensory (Use pinprick to test arms, legs, trunk and face compare side to side): 0-Normal 1-Mild to moderate decrease in sensation 2-Severe to total sensory loss 9. Best language (describe picture, name items, read sentences): 0-No aphasia 1-Mild to moderate aphasia 2-Severe aphasia 3-Mute 10. Dysarthria (read several words): 0-Normal articulation 1-Mild to moderate slurring of words 2-Near unintelligible or unable to speak UT-Intubated or other physical barrier 11. Extinction and inattention: 0-Normal 1-Inattention or extinction to bilateral simultaneous in one of the sensory modalities 2-Severe telma-inattention or telma-inattention to more than one modality TOTAL SCORE: 0 Labs: Recent Results (from the past 24 hour(s)) Basic Metabolic Panel (non-fasting) Result Value Ref Range Glucose Lvl 103 65 - 199 mg/dL BUN 17 8 - 18 mg/dL Creatinine 1.23 (H) 0.70 - 1.20 mg/dL Sodium 143 135 - 145 mmol/L Potassium 3.9 3.5 - 5.0 mmol/L Chloride 108 (H) 98 - 107 mmol/L CO2 21 (L) 22 - 31 mmol/L Anion Gap 14 5 - 15 mmol/L Calcium 9.1 8.5 - 10.5 mg/dL eGFR 47 (L) >=60 mL/min/1.73 m?? eGFR 54 (L) >=60 mL/min/1.73 m?? Hepatic Function Panel Result Value Ref Range Total Protein 6.1 6.1 - 8.0 gm/dL Albumin 4.0 3.2 - 5.2 gm/dL AST 20 0 - 30 unit/L ALT 13 0 - 30 unit/L Alk Phos 95 35 - 105 unit/L Total Bilirubin 0.4 0.2 - 1.3 mg/dL Bili, Direct 0.1 0.0 - 0.3 mg/dL Prothrombin Time Result Value Ref Range PT 12.2 9.4 - 12.5 sec INR 1.1 APTT Result Value Ref Range PTT 31 25 - 37 sec Hemogram Result Value Ref Range WBC 5.6 4.0 - 9.5 x10(3)/mcL RBC 4.19 4.00 - 5.21 x10(6)/mcL Hemoglobin 12.2 11.7 - 15.5 gm/dL Hematocrit 37.6 35.7 - 45.8 % MCV 89.7 82.6 - 94.4 fL MCH 29.1 27.1 - 32.0 pg MCHC 32.4 31.7 - 35.0 gm/dL Platelets 196 145 - 357 x10(3)/mcL RDWSD 41.7 37.0 - 46.0 fL RDWCV 12.7 11.5 - 14.1 % MPV 11.8 7.6 - 12.9 fL nRBC % Auto 0.0 % nRBC Abs Auto 0.000 0.000 - 0.000 x10(3)/mcL Differential, Automated Result Value Ref Range Neutrophils % 31.9 % Neutr Abs (ANC) 1.80 1.70 - 6.10 x10(3)/mcL Lymphocytes % 51.7 % Lymphocytes Abs 2.9 0.9 - 3.2 x10(3)/mcL Monocytes % 9.1 % Monocyte Abs 0.5 0.3 - 0.9 x10(3)/mcL Eosinophils % 6.0 % Eosinophils Abs 0.3 0.0 - 0.4 x10(3)/mcL Basophils % 1.1 % Basophils Abs 0.1 0.0 - 0.1 x10(3)/mcL Immature Gran % 0.20 % Renetta Gran Abs 0.01 0.00 - 0.04 x10(3)/mcL Urinalysis with reflex Culture Result Value Ref Range Glucose UA Negative Negative mg/dL Protein UA Negative Negative mg/dL Bilirubin UA Negative Negative mg/dL Urobilinogen UA Normal Normal mg/dL pH UA 7.5 5.0 - 8.0 Blood UA Trace (A) Negative mg/dL Ketones UA Negative Negative mg/dL Nitrite UA Negative Negative Leukocytes UA Moderate (A) Negative mcL Appearance UA Clear Clear Spec [place] UA 1.009 1.002 - 1.030 Color UA Yellow Yellow Culture Reflexed Yes Urinalysis Microscopic Exam Result Value Ref Range RBC UA 2 0 - 4 /HPF WBC UA 10 (H) 0 - 5 /HPF Squam Epith UA 1 <=4 /HPF Diagnostic Tests and Imaging: Head CT w/out: - Done at OSH ?? Swallow Screen Results: PASSED (All YES responses) Time 1AM Assessment and Plan: Ruthann Wolf is a 64 y.o. Right-handed female with PMH of renal insufficiency (idiopathic), asthma, insomnia who was transferred to [facility] from [facility] for evaluation of gait impairment and concern of posterior circulation stroke. ?? Today she had sudden onset gait impairment with veering to the right. She had associated headache and feeling woozy. Her examination was notable for a positive Romberg sign and a Mercedez on the left. ??Notably no associated diplopia, loss of vision nor motor or sensory symptoms. She feels as if her symptoms are resolved which is most reassuring. This could be Central vs peripheral vertigo and an ischemic infarct should be ruled out. Given the headache I wonder if this could be migraine as well. She has no evidence of neuropathy on exam but her Romberg is positive. We will also obtain cervical imaging to rule out myelopathy which could be contributing to balance impairment and her aforementioned deficits.. Given her contrast allergy will avoid any contrasted studies fornow. ?? Thrombolytics were considered and not given secondary to Specify reason: out of time window ? #Impaired balance -Admit to neurology under observation status floor level of care -Neuro check & vitals Q4hrs / Q4hrs -Permissive HTN, treat SBP >220 with prn labetalol, enalaprilat -Aspirin 81 daily -Check CBC, BMP, LFT, lipid profile, HbA1c, Mg, Phos, UA -Statin pending labs and imaging -TTE -12 lead EKG -Telemetry -MRI brain wo contrast - MRI cervical Spine wo -MRA head wo contrast, neck wo contrast -PT ? # Prophylaxis -Lovenox 40mg SC daily -RBOs -SCDs ?? # Supportive care -Regular diet -Tylenol PRN -Up with assistance ?? # FULL code ?? Ruby Keller MD Neurology Resident PGY3 07/13/19 Vascular Neurology Pager [phone] Standard [facility] Swallow Screen: This screen is to be used to document a Swallow Screen prior to ingestion of water and /or oral medications for patients with possible stroke (Ischemic or Hemorrhagic). Exclusion Criteria: A swallow screen is not to be performed on patients who: ?? have a decreased level of consciousness. ?? are not able to follow simple commands. ?? are hypoxic, or have increasing O2 needs or may need to be intubated. ?? have a G/J tube for nutrition. ?? have a recent history of a swallowing disorder *These patients should remain NPO (HOLD MEDS) and the physician notified for further orders. Swallow Screen Using Water: None of the Exclusion Criteria as mentioned above is present? Patient is alert and sitting upright? Able to close lips and tongue is midline? Able to cough, manage oral secretions with dry voice? ONLY IF ABOVE ALL YES, Able to swallow 30 ml of water without coughing, displaying a wet voice or choking? Repeat Twice. ??? If YES to all responses, proceed with water and oral medications as well as diet as medical provider deems appropriate. Consider EXECUTIVE ADMIN consult for full evaluation and diet recommendations. ??? If NO to any of the responses, stop immediately, keep patient NPO and notify physician. ??? Associated attestation - Danielito Holland MD - 07/13/2019 5:01 PM EDT Neurology Staff Note I have reviewed the resident's history during the visit and I agree with the details as written. Myphysical examination confirms the resident's findings. The assessment and plan were formulated in discussion with me at the time of the visit and I agree with them as documented. See my other note documented in this encounter ED Notes * Alvaro Hurley MD - 07/12/2019 11:29 PM EDT ED Resident Note Ruthann Wolf is an 64 y.o. female who presents to the ED with: Chief Complaint Patient presents with ??? Hospital Transfer ??? Altered Mental Status I saw this patient on 07/13/2019. History is from the patient at the bedside. HPI Ruthann Wolf is a 64 y.o. female with no significant past medical history who presents to the Emergency Department for concern for stroke versus TIA. Seen at outside hospital for continued falling towards the left. She states that this morning she was well but at 10 AM she noticed sudden onset poor balance. She describes no other focal weakness. She denies any recent illness, fever, chills, nausea, vomiting, dysuria, abdominal pain, changes in her bowels or bladder. She is never had symptoms like this before, has no history of stroke. She denies any leg pain, leg swelling, does not take anticoagulation but does take a daily aspirin. CT Noncon at outside hospital was unremarkable, she has a history of rash and swelling to IV contrast and CTA was deferred. Review of Systems: Review of Systems Constitutional: Negative for activity change, appetite change, chills, diaphoresis, fever and unexpected weight change. HENT: Negative for rhinorrhea, sore throat and voice change. Respiratory: Negative for apnea, cough and shortness of breath. Cardiovascular: Negative for chest pain. Gastrointestinal: Negative for abdominal pain, constipation, diarrhea, nausea and vomiting. Genitourinary: Negative for dysuria. Musculoskeletal: Negative for back pain. Skin: Negative for rash. Neurological: Positive for weakness. Negative for dizziness, numbness and headaches. Psychiatric/Behavioral: Negative for confusion and suicidal ideas. Physical Exam: Patient Vitals for the past 24 hrs: BP Temp Temp src Pulse Resp SpO2 Height Weight 07/13/19 0751 103/63 36.6 ??C (97.9 ??F) Oral -- 14 96 % -- -- 07/13/19 0357 148/71 36.4 ??C (97.5 ??F) Oral -- 18 98 % -- -- 07/13/19 0338 -- -- -- -- -- 100 % -- -- 07/13/19 0330 126/64 -- -- -- -- 100 % -- -- 07/13/19 0315 119/68 -- -- -- -- 99 % -- -- 07/13/19 0300 125/68 -- -- -- -- 100 % -- -- 07/13/19 0245 116/65 -- -- -- -- 97 % -- -- 07/12/19 2330 152/76 -- -- -- -- 98 % -- -- 07/12/19 2315 145/73 -- -- -- -- 100 % -- -- 07/12/19 2300 144/81 -- -- -- -- 100 % -- -- 07/12/19 2245 154/84 -- -- -- -- 99 % -- -- 07/12/19 2230 150/87 -- -- -- -- 100 % -- -- 07/12/19 2215 167/80 37.2 ??C (99 ??F) Oral 63 18 100 % 170.2 cm (5' 7) 66.2 kg (146 lb) 07/12/19 2212 163/80 -- -- -- -- 100 % -- -- GEN: No acute distress. HEENT: Oropharynx clear, pink, and moist. PULM: No resp distress. CV: Normal rate. ABD: Soft, nondistended, nttp. MSK: No gross deformities. Neuro Exam: MS: AAOx4, clear language, no dysarthria, follows commands CN: PERRL, EOMI, visual cavazos full Facial sensation intact, no facial asymmetry Hearing intact to finger rub Palate elevates symmetrically, tongue protrudes midline Trapezius strength intact Motor: Normal bulk and tone. No pronator drift UE: 5/5 R, 5/5 L Arm abduction at shoulder 5/5 R, 5/5 L Elbow extension 5/5 R, 5/5 L Elbow flexion 5/5 R, 5/5 L Mailer Apprentice 5/5 R, 5/5 L Finger interossei LE: 5/5 R, 5/5 L Hip flexion 5/5 R, 5/5 L Knee extension 5/5 R, 5/5 L Knee flexion 5/5 R, 5/5 L Foot dorsiflexion 5/5 R, 5/5 L Foot plantar flexion Sensation: Intact to light touch throughout Reflexes: DTRs 2+ R, 2+ L Biceps 2+ R, 2+ L Brachioradialis Toes - R down, L down Coordination: Finger to nose intact, no dysmetria Rapid alternating movements smooth and symmetric, no dysdiadochokinesia No tremor Gait: Stable, steady PSYCH: Normal mood and thought pattern. SKIN: No rashes. ED Course: - Patient seen under the supervision of the attending physician. - Medications, allergies, and past medical history reviewed. Recent Results (from the past 24 hour(s)) Basic Metabolic Panel (non-fasting) Result Value Ref Range Glucose Lvl 103 65 - 199 mg/dL BUN 17 8 - 18 mg/dL Creatinine 1.23 (H) 0.70 - 1.20 mg/dL Sodium 143 135 - 145 mmol/L Potassium 3.9 3.5 - 5.0 mmol/L Chloride 108 (H) 98 - 107 mmol/L CO2 21 (L) 22 - 31 mmol/L Anion Gap 14 5 - 15 mmol/L Calcium 9.1 8.5 - 10.5 mg/dL eGFR 47 (L) >=60 mL/min/1.73 m?? eGFR 54 (L) >=60 mL/min/1.73 m?? Hepatic Function Panel Result Value Ref Range Total Protein 6.1 6.1 - 8.0 gm/dL Albumin 4.0 3.2 - 5.2 gm/dL AST 20 0 - 30 unit/L ALT 13 0 - 30 unit/L Alk Phos 95 35 - 105 unit/L Total Bilirubin 0.4 0.2 - 1.3 mg/dL Bili, Direct 0.1 0.0 - 0.3 mg/dL Prothrombin Time Result Value Ref Range PT 12.2 9.4 - 12.5 sec INR 1.1 APTT Result Value Ref Range PTT 31 25 - 37 sec Hemogram Result Value Ref Range WBC 5.6 4.0 - 9.5 x10(3)/mcL RBC 4.19 4.00 - 5.21 x10(6)/mcL Hemoglobin 12.2 11.7 - 15.5 gm/dL Hematocrit 37.6 35.7 - 45.8 % MCV 89.7 82.6 - 94.4 fL MCH 29.1 27.1 - 32.0 pg MCHC 32.4 31.7 - 35.0 gm/dL Platelets 196 145 - 357 x10(3)/mcL RDWSD 41.7 37.0 - 46.0 fL RDWCV 12.7 11.5 - 14.1 % MPV 11.8 7.6 - 12.9 fL nRBC % Auto 0.0 % nRBC Abs Auto 0.000 0.000 - 0.000 x10(3)/mcL Differential, Automated Result Value Ref Range Neutrophils % 31.9 % Neutr Abs (ANC) 1.80 1.70 - 6.10 x10(3)/mcL Lymphocytes % 51.7 % Lymphocytes Abs 2.9 0.9 - 3.2 x10(3)/mcL Monocytes % 9.1 % Monocyte Abs 0.5 0.3 - 0.9 x10(3)/mcL Eosinophils % 6.0 % Eosinophils Abs 0.3 0.0 - 0.4 x10(3)/mcL Basophils % 1.1 % Basophils Abs 0.1 0.0 - 0.1 x10(3)/mcL Immature Gran % 0.20 % Renetta Gran Abs 0.01 0.00 - 0.04 x10(3)/mcL Urinalysis with reflex Culture Result Value Ref Range Glucose UA Negative Negative mg/dL Protein UA Negative Negative mg/dL Bilirubin UA Negative Negative mg/dL Urobilinogen UA Normal Normal mg/dL pH UA 7.5 5.0 - 8.0 Blood UA Trace (A) Negative mg/dL Ketones UA Negative Negative mg/dL Nitrite UA Negative Negative Leukocytes UA Moderate (A) Negative mcL Appearance UA Clear Clear Spec [place] UA 1.009 1.002 - 1.030 Color UA Yellow Yellow Culture Reflexed Yes Urinalysis Microscopic Exam Result Value Ref Range RBC UA 2 0 - 4 /HPF WBC UA 10 (H) 0 - 5 /HPF Squam Epith UA 1 <=4 /HPF Assessment and Plan: 64 y.o. female with possible TIA. 64-year-old female with sudden onset poor balance, particularly falling to the left while walking which occurred at 9:[address] Noncon at outside hospital was unremarkable. She has no infectious symptoms, no DVT symptoms, no history of A. fib, prior stroke which is all reassuring. My neuro exam is completely unremarkable. Neurology was consulted and felt that she had a positive Romberg test, she be admitted to their service for MRI and further evaluation, TIA work-up, echo. Alvaro Hurley MD Resident 07/13/19 0703 Associated attestation - Mackenzie Weber MD - 07/23/2019 3:56 AM EDT ED ATTENDING ATTESTATION NOTE The patient was seen in conjunction with the resident physician. I have independently performed thekey portions of the history and physical exam. I have reviewed the nursing notes, vital signs, and all diagnostic studies personally including labs, imaging studies and EKGs. I have discussed the details of the case with the resident and agree with the assessment and plan as described in the resident note above unless noted otherwise below. * Eusebio Teague DO - 07/12/2019 8:26 PM EDT 64 yo healthy fem 1300 acute onset listing to left, vertigo, persistent Ataxic with positive rhomberg on exam CT neg, could not get CTA due to contrast allergy (facial edema) Needs neuro eval ED to ED transfer for evaluation and admit to neuro for MR in morning. Eusebio Teague DO 07/12/192033 Discussed again with OSH, received meclizine with moderate improvement. Neuro updated with plan Eusbeio Teague DO 07/12/192118 documented in this encounter Miscellaneous Notes * Plan of [place] - Christy Pitts PT - 07/13/2019 2:51 PM EDT Physical Therapy Contact Note Consult received, thank you, and pt history reviewed in eDH. Patient profile: Ruthann Wolf is a 64 y.o. right handed female with PMH of renal insufficiency (idiopathic), asthma, insomnia admitted on 07/12/[address] Danielito Holland MD for evaluation ofgait impairment and concern for posterior circulation stroke. Met with pt's RN this date who reports that pt has been independent in room with no safety concerns. Met with pt this date who endorses independence at this time (was ambulating in room with good dynamic stability upon this designer/writer's arrival, demonstrated ability to stand on one foot with unremarkable balance) and denies any inpatient PT needs or DME needs. When medically ready for hospital D/C, ena dillon recommendations: return to home setting, no follow-up PT needs identified; equipment needs for discharge: No equipment necessary. Please do not hesitate to page if you have any questions, thank you. Christy Pitts, PT Pager #[phone] Physical Therapy Inpatient Rehabilitation * Initial Assessments - Anderson De La Cruz MSW - 07/13/2019 7:55 AM EDT Office of Care Management Initial Assessment MILES Goode reviewed record and discussed patient with Care Team. Source of Information: Patient, Chart, Treatment Team Introduced self/reviewed role; services accepted. Reason for Hospitalization: Reason for Admission as Stated by Patient: Because I am experiecing dizziness, woozines in my head and couldn't walk a straight line Balance impairment No past medical history on file. Hospitalizations Within the Past 30 Days: none Anticipated Length Of Stay (If known): Expected Length of Hospitalization: 2 days Current Decision-Making Capacity: AO4 Advance Care Planning: in eDH Current Coping/Education/Information Needs: has been given clinical updates by Care Teams and has been provided the opportunity to have questions/concerns addressed. Current Functional Ability: 1 assist Functional Status Prior to Admission: Independent and active in all ADL's Home Environment: Single family 1.5 story home with 4 hugo Social & Family Supports/Community Resources: Spouse, son, 2 grandchildren Behavioral Health History: depression Substance Use/Abuse: Smoking:??Denies EtOH:??Denies Illicits:??Denies Other Pertinent/Service Specific Information: none Health/Prescription Coverage: Primary Insurance: MEDICAID [place] Secondary Insurance: N/A Prescription Coverage: yes Preferred [facility]acy: [facility] Primary Care Provider: Kaylene Pinedo MD [phone] Patient/Caregiver Goals of Treatment: To get out of here today Potential Needs for Transition of Care: Rehab/SNF: Pending evals- [facility] or [facility] for [facility] Home Health: [facility] DME: none Dialysis: Community Resources: Available Transportation: Likely spouse Anticipated Barriers to Discharge/Special Considerations: none Assessment: 64 y.o.??Right-handed female with PMH of renal insufficiency (idiopathic), asthma, insomnia who was transferred to [facility] from [facility] for evaluation of gait impairment and concern of posterior circulation stroke Plan: Plan to evolve based on hospital course A member of the Care Management team will continue to monitor progress, follow for continuity of care and assist with transition of care planning. Anderson De La Cruz MSW Pager: [phone] * Plan of Care - Sherron Estrella RN - 07/13/2019 6:17 AM EDT Problem: Patient Care Overview Goal: Plan of Care Review 07/13/19 0547 Coping/Psychosocial Plan Of Care Reviewed With patient OUTCOME EVALUATION NOTE: OUTCOME SUMMARY: Patient arrived from the ED at 4 am. Oriented to room and call king. Patient alert and oriented. She can follow directions. No complaints of pain. Patient requesting something to eat and a nebulizer.Complaints of dizziness. PLAN MOVING FORWARD: Continue to monitor mental status. Continue to ambulate with patient because of the dizziness. Patient on telemetry. INDIVIDUALIZED FALL PREVENTION INTERVENTIONS: Patient-specific fall risk factors per assessment: [current deficits]: Patient here for dizziness which makes her a higher fall risk. Assistance [level of assistance required for transfers and ambulation]: 1 Supervision [direct monitoring required during toileting and ADLs]: Arms reach Surveillance [continuous indirect monitoring]: Purposeful rounding Patient-specific fall prevention interventions for sensory deficits provided, if applicable: [X] N/A CPG GOAL OUTCOME EVALUATION: Goal: Individualization & Mutuality 07/13/19 7037 Mutuality/Individual Preferences What Anxieties, Fears or Concerns Do You Have About Your Health or Care? Severe Asthma, Osteo arthritis, compression fx, lumbar spine, broke 5th metatarsal right foot, and stress fx in left foot. What Questions Do You Have About Your Health or Care? I don't have any right now. What Information Would Help Us Give You More Personalized Care? No fragrances Goal: Fall Prevention-Safe Patient Handling 07/13/19 0547 07/13/19 0600 [place] Fall Risk History of Falling 0 -- Secondary Diagnosis 15 -- Ambulatory Aids 0 -- Intravenous Therapy/Heparin/Saline Lock 20 -- Gait/Transferring 0 -- Mental Status 0 -- Score 35 -- OTHER [place] Fall Risk Med -- Restraint Interventions Safety Promotion/Fall Prevention safety round/check completed -- Positioning Body Position independent -- Activity Activity Type -- ambulated to bathroom Activity Assistance Provided -- assistance, stand-by Goal: Infection Control 07/13/19 0547 Safety Interventions Isolation Precautions standard precautions maintained Infection Prevention rest/sleep promoted Goal: Discharge Needs Assessment 07/13/19 0419 Living Environment Transportation Available family or friend will provide Problem: Stroke (Ischemic) (Adult) Intervention: Monitor/Assist with Self Care 07/13/19 0547 07/13/19 06 Functional Level Current Ambulation 2-->assistive person -- Transferring 2-->assistive person -- Toileting 2-->assistive person -- Bathing 2-->assistive person -- Dressing 0-->independent -- Eating 0-->independent -- Communication 0-->understands/communicates without difficulty -- Swallowing 0-->swallows foods/liquids without difficulty -- Activity Activity Type -- ambulated to bathroom Activity Assistance Provided -- assistance, stand-by Intervention: Provide Oxygenation/Ventilation/Perfusion Support 07/13/19 06 Activity Activity Type ambulated to bathroom Intervention: Protect Affected Joints/Extremities 07/13/19546 Positioning Body Position independent Goal: Signs and Symptoms of Listed Potential Problems Will be Absent, Minimized or Managed (Stroke) Signs and symptoms of listed potential problems will be absent, minimized or managed by discharge/transition of care (reference Stroke (Ischemic) (Adult) CPG). 07/13/19546 Stroke (Ischemic) Problems Assessed (Stroke (Ischemic)/TIA) all Problems Present (Stroke (Ischemic)/TIA) none documented in this encounter Plan of Treatment Upcoming Encounters Date Type Department Care Team (Late st Contact Info) Description 11/05/2023 10:00 AM EDT [place] [address] Deborah Richardson APRN documented as of this encounter Procedures Procedure Name Priority Date/Time Associated Diagnosis Comments MRI HEAD ANGIOGRAM WO CONTRAST STAT 07/13/2019 11:20 AM EDT MRI CERVICAL SPINE WO CONTRAST Routine 07/13/2019 11:20 AM EDT MRI BRAIN WO CONTRAST Routine 07/13/2019 11:20 AM EDT MRI NECK ANGIOGRAM WWO CONTRAST Routine 07/13/2019 11:20 AM EDT URINALYSIS MICROSCOPIC EXAM Routine 07/13/2019 5:46 AM EDT URINALYSIS WITH REFLEX CULTURE Routine 07/13/2019 5:46 AM EDT URINE CULTURE Routine 07/13/2019 5:46 AM EDT HEMOGRAM STAT 07/13/2019 12:20 AM EDT DIFFERENTIAL, AUTOMATED STAT 07/13/19 12:20 AM EDT HC PARTIAL THROMBOPLASTIN TIME STAT 07/13/2019 12:20 AM EDT HC PROTHROMBIN TIME STAT 07/13/2019 1 2:20 AM EDT HC CBC,PLT & AUTO DIFF STAT 0 12:20 AM EDT HEPATIC FUNCTION PANEL STAT 0 12:20 AM EDT BASIC METABOLIC PANEL (NON-FASTING) STAT 07/13/2019 12:20 AM EDT FILM LIBRARY STORAGE ONLY CT HEAD STAT 07/12/2019 8:29 PM EDT documented in this encounter Results * MRI Angiogram Neck wwo Contrast (Generic) (07/13/2019 11:20 AM EDT) Anatomical Region Laterality Modality Neck Magnetic Resonan ce Impressions 07/13/2019 2:11 PM EDT MRI brain: No acute intracranial abnormality. Prominent nasopharyngeal soft tissue. Direct visualization recommended. MRA head: Negative exam MRA the neck: Negative exam MRI cervical spine: 1. ??Limited by motion. 2. ??Changes of cervical spondylosis at C5-6. 3. ??Abnormal marrow signal C4 segment. Differential is broad and include both benign and malignant etiology. Recommend CT evaluation and clinical correlation recommended. 4. ??Disc protrusions C5-6 greater than C4-5. Thank you for letting us participate in the care of this patient. For questions regarding this report, please contact the number below. ? Narrative 07/13/2019 2:11 PM EDT EXAMINATION: MRI BRAIN WO CONTRAST, MRI CERVICAL SPINE WO CONTRAST (GENERIC), MRI ANGIOGRAM NECK WWO CONTRAST (GENERIC), MRI ANGIOGRAM HEAD WO CONTRAST (GENERIC) CLINICAL HISTORY: Neuro deficit, acute, stroke suspected ataxia, positive romberg, stroke work up (accession [id number]), ataxia, positive romberg positive varela on left. assess for myelopathy (accession [id number]), ataxia, positive romberg, stroke work up (accession [id number]), ataxia, positive romberg, stroke work up (accession [id number]) TECHNIQUE: MRI of the brain performed without intravenous contrast administration. MR angiogram head noncontrast MR angiogram neck without with gadolinium. MRI cervical spine noncontrast 13 cc dotarem administered IV for MR angiogram neck. COMPARISON: CT head dated 07/12/2019 FINDINGS: Brain MRI: No restricted diffusion to suggest an acute infarct. No hemoglobin degradation products within the brain parenchyma on the susceptibility sequence. Skull base soft tissues demonstrate prominence of nasopharyngeal soft tissue and prominence of soft tissue projecting the right lateral pharyngeal recess. Direct visualization recommended. Orbits are unremarkable. MRA head: Normal appearance of the intracranial portion of the vertebrobasilar system and posterior circulation branches. Normal appearance of the intracranial portion of the internal carotid arteries and anterior circulation branches. Small patent anterior communicating artery. No focal stenosis, caliber change or aneurysm. MRA NECK: Normal appearance of three-vessel arch and great vessels. Normal appearance of the cervical vertebral arteries bilaterally. Normal course and caliber. Right carotid: Normal appearance of cervical right common and internal carotid artery. Left carotid: Normal appearance cervical left common and internal carotid artery. MRI cervical spine: There is abnormal increased signal intensity on T2 sequence and diminished signal intensity on T1-weighted sequence projecting in the C4 vertebral body. There is no other aggressive marrow lesion identified. There is disc space degenerative change with disc space narrowing and endplate proliferative and reactive changes at C5-6. There is mild retrolisthesis of C5 on C6. Craniocervical junction is normal. No cord signal abnormality. Exam limited by patient motion. C2-3: Normal C3-4: No disc protrusion central stenosis or gross foraminal narrowing. C4-5: There is evidence of a broad central disc protrusion and left greater than right uncinate proliferative changes. Moderate left and mild right foraminal narrowing. Mild overall effacement of the ventral thecal sac. C5-6: Mild overall central stenosis secondary to retrolisthesis and broad-based disc protrusion. Moderate bilateral foraminal narrowing. Exam limited by motion at this level. C6-C7: No gross central stenosis. No gross foraminal narrowing. C7-T1: No disc protrusion central stenosis or foraminal narrowing.. Procedure Note Ruddy Luo MD - 07/13/2019 EXAMINATION: MRI BRAIN WO CONTRAST, MRI CERVICAL SPINE WO CONTRAST(GENERIC), MRI ANGIOGRAM NECK WWO CONTRAST (GENERIC), MRI ANGIOGRAM HEAD WOCONTRAST (GENERIC) CLINICAL HISTORY: Neuro deficit, acute, stroke suspected ataxia, positive romberg, stroke work up (accession [id number]), ataxia,positive romberg positive varela on left. assess for myelopathy ([id number]), ataxia, positive romberg, stroke work up (accession [id number]), ataxia,positive romberg, stroke work up (accession [id number]) TECHNIQUE: MRI of the brain performed without intravenous contrast administration. MR angiogram head noncontrast MR angiogram neck without with gadolinium. MRI cervical spine noncontrast 13 cc dotarem administered IV for MR angiogram neck. COMPARISON: CT head dated 07/12/2019 FINDINGS: Brain MRI: No restricted diffusion to suggest an acute infarct. No hemoglobin degradation products within the brain parenchyma on the susceptibility sequence. Skull base soft tissues demonstrate prominence of nasopharyngeal softtissue and prominence of soft tissue projecting the right lateral pharyngeal recess.Direct visualization recommended. Orbits are unremarkable. MRA head: Normal appearance of the intracranial portion of thevertebrobasilar system and posterior circulation branches. Normal appearance of the intracranial portion of the internal carotidarteries and anterior circulation branches. Small patent anterior communicatingartery. No focal stenosis, caliber change or aneurysm. MRA NECK: Normal appearance of three-vessel arch and great vessels. Normal appearance of the cervical vertebral arteries bilaterally. Normalcourse and caliber. Right carotid: Normal appearance of cervical right common and internalcarotid artery. Left carotid: Normal appearance cervical left common and internalcarotid artery. MRI cervical spine: There is abnormal increased signal intensity on [id number] and diminished signal intensity on T1-weighted sequence projecting in theC4 vertebral body. There is no other aggressive marrow lesion identified. There is disc space degenerative change with disc space narrowing andendplate proliferative and reactive changes at C5-6. There is mild retrolisthesisof C5 on C6. Craniocervical junction is normal. No cord signal abnormality. Exam limited by patient motion. C2-3: Normal C3-4: No disc protrusion central stenosis or gross foraminal narrowing. C4-5: There is evidence of a broad central disc protrusion and leftgreater than right uncinate proliferative changes. Moderate left and mild rightforaminal narrowing. Mild overall effacement of the ventral thecal sac. C5-6: Mild overall central stenosis secondary to retrolisthesis andbroad-based disc protrusion. Moderate bilateral foraminal narrowing. Exam limited bymotion at this level. C6-C7: No gross central stenosis. No gross foraminal narrowing. C7-T1: No disc protrusion central stenosis or foraminal narrowing.. IMPRESSION MRI brain: No acute intracranial abnormality. Prominent nasopharyngeal soft tissue. Direct visualization recommended. MRA head: Negative exam MRA the neck: Negative exam MRI cervical spine: 1. Limited by motion. 2. Changes of cervical spondylosis at C5-6. 3. Abnormal marrow signal C4 segment. Differential is broad and includeboth benign and malignant etiology. Recommend CT evaluation and clinicalcorrelation recommended. 4. Disc protrusions C5-6 greater than C4-5. Thank you for letting us participate in the care of this patient. Forquestions regarding this report, please contact the number below. Morro Sena III, MD [facility] [place] MRI ORDERABLE S * MRI Cervical Spine wo Contrast (Generic) (07/13/2019 11:20 AM EDT) Anatomical Region Laterality Modality C-spine Magnetic Resonan ce Impressions 07/13/2019 2:11 PM EDT MRI brain: No acute intracranial abnormality. Prominent nasopharyngeal soft tissue. Direct visualization recommended. MRA head: Negative exam MRA the neck: Negative exam MRI cervical spine: 1. ??Limited by motion. 2. ??Changes of cervical spondylosis at C5-6. 3. ??Abnormal marrow signal C4 segment. Differential is broad and include both benign and malignant etiology. Recommend CT evaluation and clinical correlation recommended. 4. ??Disc protrusions C5-6 greater than C4-5. Thank you for letting us participate in the care of this patient. For questions regarding this report, please contact the number below. ? Narrative 07/13/2019 2:11 PM EDT EXAMINATION: MRI BRAIN WO CONTRAST, MRI CERVICAL SPINE WO CONTRAST (GENERIC), MRI ANGIOGRAM NECK WWO CONTRAST (GENERIC), MRI ANGIOGRAM HEAD WO CONTRAST (GENERIC) CLINICAL HISTORY: Neuro deficit, acute, stroke suspected ataxia, positive romberg, stroke work up (accession [id number]), ataxia, positive romberg positive varela on left. assess for myelopathy (accession [id number]), ataxia, positive romberg, stroke work up (accession [id number]), ataxia, positive romberg, stroke work up (accession [id number]) TECHNIQUE: MRI of the brain performed without intravenous contrast administration. MR angiogram head noncontrast MR angiogram neck without with gadolinium. MRI cervical spine noncontrast 13 cc dotarem administered IV for MR angiogram neck. COMPARISON: CT head dated 07/12/2019 FINDINGS: Brain MRI: No restricted diffusion to suggest an acute infarct. No hemoglobin degradation products within the brain parenchyma on the susceptibility sequence. Skull base soft tissues demonstrate prominence of nasopharyngeal soft tissue and prominence of soft tissue projecting the right lateral pharyngeal recess. Direct visualization recommended. Orbits are unremarkable. MRA head: Normal appearance of the intracranial portion of the vertebrobasilar system and posterior circulation branches. Normal appearance of the intracranial portion of the internal carotid arteries and anterior circulation branches. Small patent anterior communicating artery. No focal stenosis, caliber change or aneurysm. MRA NECK: Normal appearance of three-vessel arch and great vessels. Normal appearance of the cervical vertebral arteries bilaterally. Normal course and caliber. Right carotid: Normal appearance of cervical right common and internal carotid artery. Left carotid: Normal appearance cervical left common and internal carotid artery. MRI cervical spine: There is abnormal increased signal intensity on T2 sequence and diminished signal intensity on T1-weighted sequence projecting in the C4 vertebral body. There is no other aggressive marrow lesion identified. There is disc space degenerative change with disc space narrowing and endplate proliferative and reactive changes at C5-6. There is mild retrolisthesis of C5 on C6. Craniocervical junction is normal. No cord signal abnormality. Exam limited by patient motion. C2-3: Normal C3-4: No disc protrusion central stenosis or gross foraminal narrowing. C4-5: There is evidence of a broad central disc protrusion and left greater than right uncinate proliferative changes. Moderate left and mild right foraminal narrowing. Mild overall effacement of the ventral thecal sac. C5-6: Mild overall central stenosis secondary to retrolisthesis and broad-based disc protrusion. Moderate bilateral foraminal narrowing. Exam limited by motion at this level. C6-C7: No gross central stenosis. No gross foraminal narrowing. C7-T1: No disc protrusion central stenosis or foraminal narrowing.. Procedure Note Ruddy Luo MD - 07/13/2019 EXAMINATION: MRI BRAIN WO CONTRAST, MRI CERVICAL SPINE WO CONTRAST(GENERIC), MRI ANGIOGRAM NECK WWO CONTRAST (GENERIC), MRI ANGIOGRAM HEAD WOCONTRAST (GENERIC) CLINICAL HISTORY: Neuro deficit, acute, stroke suspected ataxia, positive romberg, stroke work up (accession [id number]), ataxia,positive romberg positive varela on left. assess for myelopathy ([id number]), ataxia, positive romberg, stroke work up (accession [id number]), ataxia,positive romberg, stroke work up (accession [id number]) TECHNIQUE: MRI of the brain performed without intravenous contrast administration. MR angiogram head noncontrast MR angiogram neck without with gadolinium. MRI cervical spine noncontrast 13 cc dotarem administered IV for MR angiogram neck. COMPARISON: CT head dated 07/12/2019 FINDINGS: Brain MRI: No restricted diffusion to suggest an acute infarct. No hemoglobin degradation products within the brain parenchyma on the susceptibility sequence. Skull base soft tissues demonstrate prominence of nasopharyngeal softtissue and prominence of soft tissue projecting the right lateral pharyngeal recess.Direct visualization recommended. Orbits are unremarkable. MRA head: Normal appearance of the intracranial portion of thevertebrobasilar system and posterior circulation branches. Normal appearance of the intracranial portion of the internal carotidarteries and anterior circulation branches. Small patent anterior communicatingartery. No focal stenosis, caliber change or aneurysm. MRA NECK: Normal appearance of three-vessel arch and great vessels. Normal appearance of the cervical vertebral arteries bilaterally. Normalcourse and caliber. Right carotid: Normal appearance of cervical right common and internalcarotid artery. Left carotid: Normal appearance cervical left common and internalcarotid artery. MRI cervical spine: There is abnormal increased signal intensity on [id number] and diminished signal intensity on T1-weighted sequence projecting in theC4 vertebral body. There is no other aggressive marrow lesion identified. There is disc space degenerative change with disc space narrowing andendplate proliferative and reactive changes at C5-6. There is mild retrolisthesisof C5 on C6. Craniocervical junction is normal. No cord signal abnormality. Exam limited by patient motion. C2-3: Normal C3-4: No disc protrusion central stenosis or gross foraminal narrowing. C4-5: There is evidence of a broad central disc protrusion and leftgreater than right uncinate proliferative changes. Moderate left and mild rightforaminal narrowing. Mild overall effacement of the ventral thecal sac. C5-6: Mild overall central stenosis secondary to retrolisthesis andbroad-based disc protrusion. Moderate bilateral foraminal narrowing. Exam limited bymotion at this level. C6-C7: No gross central stenosis. No gross foraminal narrowing. C7-T1: No disc protrusion central stenosis or foraminal narrowing.. IMPRESSION MRI brain: No acute intracranial abnormality. Prominent nasopharyngeal soft tissue. Direct visualization recommended. MRA head: Negative exam MRA the neck: Negative exam MRI cervical spine: 1. Limited by motion. 2. Changes of cervical spondylosis at C5-6. 3. Abnormal marrow signal C4 segment. Differential is broad and includeboth benign and malignant etiology. Recommend CT evaluation and clinicalcorrelation recommended. 4. Disc protrusions C5-6 greater than C4-5. Thank you for letting us participate in the care of this patient. Forquestions regarding this report, please contact the number below. Morro Sena III, MD IM MRI ORDERABLE S * MRI Brain wo Contrast (07/13/2019 11:20 AM EDT) Anatomical Region Laterality Modality Head Magnetic Resonan ce Impressions 07/13/2019 2:11 PM EDT MRI brain: No acute intracranial abnormality. Prominent nasopharyngeal soft tissue. Direct visualization recommended. MRA head: Negative exam MRA the neck: Negative exam MRI cervical spine: 1. ??Limited by motion. 2. ??Changes of cervical spondylosis at C5-6. 3. ??Abnormal marrow signal C4 segment. Differential is broad and include both benign and malignant etiology. Recommend CT evaluation and clinical correlation recommended. 4. ??Disc protrusions C5-6 greater than C4-5. Thank you for letting us participate in the care of this patient. For questions regarding this report, please contact the number below. ? Narrative 07/13/2019 2:11 PM EDT EXAMINATION: MRI BRAIN WO CONTRAST, MRI CERVICAL SPINE WO CONTRAST (GENERIC), MRI ANGIOGRAM NECK WWO CONTRAST (GENERIC), MRI ANGIOGRAM HEAD WO CONTRAST (GENERIC) CLINICAL HISTORY: Neuro deficit, acute, stroke suspected ataxia, positive romberg, stroke work up (accession [id number]), ataxia, positive romberg positive varela on left. assess for myelopathy (accession [id number]), ataxia, positive romberg, stroke work up (accession [id number]), ataxia, positive romberg, stroke work up (accession [id number]) TECHNIQUE: MRI of the brain performed without intravenous contrast administration. MR angiogram head noncontrast MR angiogram neck without with gadolinium. MRI cervical spine noncontrast 13 cc dotarem administered IV for MR angiogram neck. COMPARISON: CT head dated 07/12/2019 FINDINGS: Brain MRI: No restricted diffusion to suggest an acute infarct. No hemoglobin degradation products within the brain parenchyma on the susceptibility sequence. Skull base soft tissues demonstrate prominence of nasopharyngeal soft tissue and prominence of soft tissue projecting the right lateral pharyngeal recess. Direct visualization recommended. Orbits are unremarkable. MRA head: Normal appearance of the intracranial portion of the vertebrobasilar system and posterior circulation branches. Normal appearance of the intracranial portion of the internal carotid arteries and anterior circulation branches. Small patent anterior communicating artery. No focal stenosis, caliber change or aneurysm. MRA NECK: Normal appearance of three-vessel arch and great vessels. Normal appearance of the cervical vertebral arteries bilaterally. Normal course and caliber. Right carotid: Normal appearance of cervical right common and internal carotid artery. Left carotid: Normal appearance cervical left common and internal carotid artery. MRI cervical spine: There is abnormal increased signal intensity on T2 sequence and diminished signal intensity on T1-weighted sequence projecting in the C4 vertebral body. There is no other aggressive marrow lesion identified. There is disc space degenerative change with disc space narrowing and endplate proliferative and reactive changes at C5-6. There is mild retrolisthesis of C5 on C6. Craniocervical junction is normal. No cord signal abnormality. Exam limited by patient motion. C2-3: Normal C3-4: No disc protrusion central stenosis or gross foraminal narrowing. C4-5: There is evidence of a broad central disc protrusion and left greater than right uncinate proliferative changes. Moderate left and mild right foraminal narrowing. Mild overall effacement of the ventral thecal sac. C5-6: Mild overall central stenosis secondary to retrolisthesis and broad-based disc protrusion. Moderate bilateral foraminal narrowing. Exam limited by motion at this level. C6-C7: No gross central stenosis. No gross foraminal narrowing. C7-T1: No disc protrusion central stenosis or foraminal narrowing.. Procedure Note Ruddy Luo MD - 07/13/2019 EXAMINATION: MRI BRAIN WO CONTRAST, MRI CERVICAL SPINE WO CONTRAST(GENERIC), MRI ANGIOGRAM NECK WWO CONTRAST (GENERIC), MRI ANGIOGRAM HEAD WOCONTRAST (GENERIC) CLINICAL HISTORY: Neuro deficit, acute, stroke suspected ataxia, positive romberg, stroke work up (accession [id number]), ataxia,positive romberg positive varela on left. assess for myelopathy ([id number]), ataxia, positive romberg, stroke work up (accession [id number]), ataxia,positive romberg, stroke work up (accession [id number]) TECHNIQUE: MRI of the brain performed without intravenous contrast administration. MR angiogram head noncontrast MR angiogram neck without with gadolinium. MRI cervical spine noncontrast 13 cc dotarem administered IV for MR angiogram neck. COMPARISON: CT head dated 07/12/2019 FINDINGS: Brain MRI: No restricted diffusion to suggest an acute infarct. No hemoglobin degradation products within the brain parenchyma on the susceptibility sequence. Skull base soft tissues demonstrate prominence of nasopharyngeal softtissue and prominence of soft tissue projecting the right lateral pharyngeal recess.Direct visualization recommended. Orbits are unremarkable. MRA head: Normal appearance of the intracranial portion of thevertebrobasilar system and posterior circulation branches. Normal appearance of the intracranial portion of the internal carotidarteries and anterior circulation branches. Small patent anterior communicatingartery. No focal stenosis, caliber change or aneurysm. MRA NECK: Normal appearance of three-vessel arch and great vessels. Normal appearance of the cervical vertebral arteries bilaterally. Normalcourse and caliber. Right carotid: Normal appearance of cervical right common and internalcarotid artery. Left carotid: Normal appearance cervical left common and internalcarotid artery. MRI cervical spine: There is abnormal increased signal intensity on [id number] and diminished signal intensity on T1-weighted sequence projecting in theC4 vertebral body. There is no other aggressive marrow lesion identified. There is disc space degenerative change with disc space narrowing andendplate proliferative and reactive changes at C5-6. There is mild retrolisthesisof C5 on C6. Craniocervical junction is normal. No cord signal abnormality. Exam limited by patient motion. C2-3: Normal C3-4: No disc protrusion central stenosis or gross foraminal narrowing. C4-5: There is evidence of a broad central disc protrusion and leftgreater than right uncinate proliferative changes. Moderate left and mild rightforaminal narrowing. Mild overall effacement of the ventral thecal sac. C5-6: Mild overall central stenosis secondary to retrolisthesis andbroad-based disc protrusion. Moderate bilateral foraminal narrowing. Exam limited bymotion at this level. C6-C7: No gross central stenosis. No gross foraminal narrowing. C7-T1: No disc protrusion central stenosis or foraminal narrowing.. IMPRESSION MRI brain: No acute intracranial abnormality. Prominent nasopharyngeal soft tissue. Direct visualization recommended. MRA head: Negative exam MRA the neck: Negative exam MRI cervical spine: 1. Limited by motion. 2. Changes of cervical spondylosis at C5-6. 3. Abnormal marrow signal C4 segment. Differential is broad and includeboth benign and malignant etiology. Recommend CT evaluation and clinicalcorrelation recommended. 4. Disc protrusions C5-6 greater than C4-5. Thank you for letting us participate in the care of this patient. Forquestions regarding this report, please contact the number below. Morro Sena III, MD IM MRI ORDERABLE S * MRI Angiogram Head wo Contrast (Generic) (07/13/2019 11:20 AM EDT) Anatomical Region Laterality Modality Head Magnetic Resonan ce Impressions 07/13/2019 2:11 PM EDT MRI brain: No acute intracranial abnormality. Prominent nasopharyngeal soft tissue. Direct visualization recommended. MRA head: Negative exam MRA the neck: Negative exam MRI cervical spine: 1. ??Limited by motion. 2. ??Changes of cervical spondylosis at C5-6. 3. ??Abnormal marrow signal C4 segment. Differential is broad and include both benign and malignant etiology. Recommend CT evaluation and clinical correlation recommended. 4. ??Disc protrusions C5-6 greater than C4-5. Thank you for letting us participate in the care of this patient. For questions regarding this report, please contact the number below. ? Narrative 07/13/2019 2:11 PM EDT EXAMINATION: MRI BRAIN WO CONTRAST, MRI CERVICAL SPINE WO CONTRAST (GENERIC), MRI ANGIOGRAM NECK WWO CONTRAST (GENERIC), MRI ANGIOGRAM HEAD WO CONTRAST (GENERIC) CLINICAL HISTORY: Neuro deficit, acute, stroke suspected ataxia, positive romberg, stroke work up (accession [id number]), ataxia, positive romberg positive varela on left. assess for myelopathy (accession [id number]), ataxia, positive romberg, stroke work up (accession [id number]), ataxia, positive romberg, stroke work up (accession [id number]) TECHNIQUE: MRI of the brain performed without intravenous contrast administration. MR angiogram head noncontrast MR angiogram neck without with gadolinium. MRI cervical spine noncontrast 13 cc dotarem administered IV for MR angiogram neck. COMPARISON: CT head dated 07/12/2019 FINDINGS: Brain MRI: No restricted diffusion to suggest an acute infarct. No hemoglobin degradation products within the brain parenchyma on the susceptibility sequence. Skull base soft tissues demonstrate prominence of nasopharyngeal soft tissue and prominence of soft tissue projecting the right lateral pharyngeal recess. Direct visualization recommended. Orbits are unremarkable. MRA head: Normal appearance of the intracranial portion of the vertebrobasilar system and posterior circulation branches. Normal appearance of the intracranial portion of the internal carotid arteries and anterior circulation branches. Small patent anterior communicating artery. No focal stenosis, caliber change or aneurysm. MRA NECK: Normal appearance of three-vessel arch and great vessels. Normal appearance of the cervical vertebral arteries bilaterally. Normal course and caliber. Right carotid: Normal appearance of cervical right common and internal carotid artery. Left carotid: Normal appearance cervical left common and internal carotid artery. MRI cervical spine: There is abnormal increased signal intensity on T2 sequence and diminished signal intensity on T1-weighted sequence projecting in the C4 vertebral body. There is no other aggressive marrow lesion identified. There is disc space degenerative change with disc space narrowing and endplate proliferative and reactive changes at C5-6. There is mild retrolisthesis of C5 on C6. Craniocervical junction is normal. No cord signal abnormality. Exam limited by patient motion. C2-3: Normal C3-4: No disc protrusion central stenosis or gross foraminal narrowing. C4-5: There is evidence of a broad central disc protrusion and left greater than right uncinate proliferative changes. Moderate left and mild right foraminal narrowing. Mild overall effacement of the ventral thecal sac. C5-6: Mild overall central stenosis secondary to retrolisthesis and broad-based disc protrusion. Moderate bilateral foraminal narrowing. Exam limited by motion at this level. C6-C7: No gross central stenosis. No gross foraminal narrowing. C7-T1: No disc protrusion central stenosis or foraminal narrowing.. Procedure Note Ruddy Luo MD - 07/13/2019 EXAMINATION: MRI BRAIN WO CONTRAST, MRI CERVICAL SPINE WO CONTRAST(GENERIC), MRI ANGIOGRAM NECK WWO CONTRAST (GENERIC), MRI ANGIOGRAM HEAD WOCONTRAST (GENERIC) CLINICAL HISTORY: Neuro deficit, acute, stroke suspected ataxia, positive romberg, stroke work up (accession [id number]), ataxia,positive romberg positive varela on left. assess for myelopathy ([id number]), ataxia, positive romberg, stroke work up (accession [id number]), ataxia,positive romberg, stroke work up (accession [id number]) TECHNIQUE: MRI of the brain performed without intravenous contrast administration. MR angiogram head noncontrast MR angiogram neck without with gadolinium. MRI cervical spine noncontrast 13 cc dotarem administered IV for MR angiogram neck. COMPARISON: CT head dated 07/12/2019 FINDINGS: Brain MRI: No restricted diffusion to suggest an acute infarct. No hemoglobin degradation products within the brain parenchyma on the susceptibility sequence. Skull base soft tissues demonstrate prominence of nasopharyngeal softtissue and prominence of soft tissue projecting the right lateral pharyngeal recess.Direct visualization recommended. Orbits are unremarkable. MRA head: Normal appearance of the intracranial portion of thevertebrobasilar system and posterior circulation branches. Normal appearance of the intracranial portion of the internal carotidarteries and anterior circulation branches. Small patent anterior communicatingartery. No focal stenosis, caliber change or aneurysm. MRA NECK: Normal appearance of three-vessel arch and great vessels. Normal appearance of the cervical vertebral arteries bilaterally. Normalcourse and caliber. Right carotid: Normal appearance of cervical right common and internalcarotid artery. Left carotid: Normal appearance cervical left common and internalcarotid artery. MRI cervical spine: There is abnormal increased signal intensity on [id number] and diminished signal intensity on T1-weighted sequence projecting in theC4 vertebral body. There is no other aggressive marrow lesion identified. There is disc space degenerative change with disc space narrowing andendplate proliferative and reactive changes at C5-6. There is mild retrolisthesisof C5 on C6. Craniocervical junction is normal. No cord signal abnormality. Exam limited by patient motion. C2-3: Normal C3-4: No disc protrusion central stenosis or gross foraminal narrowing. C4-5: There is evidence of a broad central disc protrusion and leftgreater than right uncinate proliferative changes. Moderate left and mild rightforaminal narrowing. Mild overall effacement of the ventral thecal sac. C5-6: Mild overall central stenosis secondary to retrolisthesis andbroad-based disc protrusion. Moderate bilateral foraminal narrowing. Exam limited bymotion at this level. C6-C7: No gross central stenosis. No gross foraminal narrowing. C7-T1: No disc protrusion central stenosis or foraminal narrowing.. IMPRESSION MRI brain: No acute intracranial abnormality. Prominent nasopharyngeal soft tissue. Direct visualization recommended. MRA head: Negative exam MRA the neck: Negative exam MRI cervical spine: 1. Limited by motion. 2. Changes of cervical spondylosis at C5-6. 3. Abnormal marrow signal C4 segment. Differential is broad and includeboth benign and malignant etiology. Recommend CT evaluation and clinicalcorrelation recommended. 4. Disc protrusions C5-6 greater than C4-5. Thank you for letting us participate in the care of this patient. Forquestions regarding this report, please contact the number below. Morro Sena III, MD IM MRI ORDERABLE S * Urine culture (07/13/2019 5:46 AM EDT) Urine Culture No growth (Less than 1,000 cfu/ml). [facility] Urine specimen (specimen) 07/13/2019 5:46 AM EDT 07/13/2019 7:23 AM EDT Narrative Resulting Agency Comment Spec In Lab Ruby Keller MD MICROBIOLOGY - GE NERAL ORDERABLES Performing Organization Address City/[facility]/ZIP Co de Phone Number [facility] [place] [address] * (ABNORMAL) Urinalysis Microscopic Exam (07/13/2019 5:46 AM EDT) RBC UA 2 0 - 4 /HPF [facility] WBC UA 10(H) 0 - 5 /HPF [facility] [place] Epith UA 1 <=4 /HPF [facility] Urine specimen (specimen) 07/13/2019 5:46 AM EDT 07/13/2019 6:00 AM EDT Narrative Resulting Agency Comment Spec In Lab Ruby Keller MD URINE ORDERABLES Performing Organization Address City/[facility]/ZIP Co de Phone Number [facility] [place] [address] * (ABNORMAL) Urinalysis with reflex Culture (07/13/2019 5:46 AM EDT) Glucose UA Negative Negative mg/dL [facility] [...] clinically indicated. Urobilinogen UA Normal Normal mg/dL [facility] pH UA 7.5 5.0 - 8.0 [facility] Blood UA Trace(A) Negative mg/dL [facility] Ketones UA Negative Negative mg/dL [facility] Nitrite UA Negative Negative [facility] Leukocytes UA Moderate(A) Negative [facility] Appearance UA Clear Clear [facility] Spec [place] UA 1.009 1.002 - 1.030 [facility] Color UA Yellow Yellow [facility] Culture Reflexed Yes [facility] Urine specimen (specimen) 07/13/2019 5:46 AM EDT 07/13/2019 6:00 AM EDT Narrative Resulting Agency Comment Spec In Lab Morro Sena III, MD URINE ORDERABLES [facility] [place] [address] * Differential, Automated (07/13/2019 12:20 AM EDT) Neutrophils % 31.9 % [facility] Neutr Abs (ANC) 1.80 1.70 - 6.10 x10(3)/[facility] LABORATORY Lymphocytes % 51.7 % [facility] Lymphocytes Abs 2.9 0.9 - 3.2 x10(3)/[facility] LABORATORY Monocytes % 9.1 % [facility] Monocyte Abs 0.5 0.3 - 0.9 x10(3)/[facility] LABORATORY Eosinophils % 6.0 % [facility] Eosinophils Abs 0.3 0.0 - 0.4 x10(3)/[facility] LABORATORY Basophils % 1.1 % [facility] Basophils Abs 0.1 0.0 - 0.1 x10(3)/[facility] LABORATORY Immature Gran % 0.20 % [facility] Comment: Immature granulocytes(IG's)percentage and absolute count will include metamyelocytes, myelocytes, and promyelocytes. Blood smears from CBCs yielding IG's will be scanned manually for concordance. If this scan disagrees with the automated IG or if promyelocytes are noted, a manual differential will be performed. Renetta Gran Abs 0.01 0.00 - 0.04 x10(3)/[facility] LABORATORY Blood specimen (specimen) 07/13/2019 12:20 AM EDT 07/13/2019 12:26 AM EDT Narrative Resulting Agency Comment Spec In Lab Alvaro Hurley MD HEMATOLOGY CELY MCQUEEN [facility] [place] [address] * Hemogram (07/13/2019 12:20 AM EDT) WBC 5.6 4.0 - 9.5 x10(3)/[facility] LABORATORY RBC 4.19 4.00 - 5.21 x10(6)/[facility] LAB[facility]ATORY Hemoglobin 12.2 11.7 - 15.5 gm/dL [facility] Hematocrit 37.6 35.7 - 45.8 % [facility] MCV 89.7 82.6 - 94.4 fL [facility] MCH 29.1 27.1 - 32.0 pg [facility] MCHC 32.4 31.7 - 35.0 gm/dL [facility] Platelets 196 145 - 357 x10(3)/[facility] LABORATORY RDWSD 41.7 37.0 - 46.0 fL [facility] RDWCV 12.7 11.5 - 14.1 % [facility] MPV 11.8 7.6 - 12.9 fL [facility] nRBC % Auto 0.0 % [facility] nRBC Abs Auto 0.000 0.000 - 0.000 x10(3)/[facility] LABORATORY Blood specimen (specimen) 07/13/2019 12:20 AM EDT 07/13/2019 12:26 AM EDT Narrative Resulting Agency Comment Spec In Lab Alvaro Hurley MD HEMATOLOGY ORDE CHARISSE Performing Organization Address [facility] Co de Phone Number [facility] [place] [address] * APTT (07/13/2019 12:20 AM EDT) PTT 31 25 - 37 sec [facility] Comment: The PTT is NOT appropriate for heparin monitoring. Use the Anti-Xa level for heparin monitoring (HEP UFH) or LMWH monitoring (HEP LMW). A PTT less than 37 seconds generally indicates adequate hemostasis. Blood specimen (specimen) 07/13/2019 12:20 AM EDT 07/13/2019 12:26 AM EDT Narrative Resulting Agency Comment Spec In Lab Mackenzie Weber MD HEMATOLOGY ORDERABLE S Performing Organization Address City/[facility]/ZIP Co de Phone Number [facility] [place] [address] * Prothrombin Time (07/13/2019 12:20 AM EDT) PT 12.2 9.4 - 12.5 sec [facility] INR [address] [facility] Comment: An INR <2.0 indicates adequate procoagulant activity for hemostasis in most patients without underlying bleeding disorders, though the INR may not adequately reflect hemostatic capacity in patients with liver disease and synthetic impairment. The recommended target INR range for therapeutic anticoagulation is 2.0 ? 3.0 for most applications, though lower and higher ranges may be appropriate depending on clinical circumstances. Blood specimen (specimen) 07/13/2019 12:20 AM EDT 07/13/2019 12:26 AM EDT Narrative Resulting Agency Comment Spec In Lab Mackenzie Weber MD HEMATOLOGY ORDERABLE S Performing Organization Address City/[facility]/ZIP Co de Phone Number [facility] [place] [address] * Hepatic Function Panel (07/13/2019 12:20 AM EDT) Total Protein 6.1 6.1 - 8.0 gm/dL [facility] Albumin 4.0 3.2 - 5.2 gm/dL [facility] AST 20 0 - 30 unit/L [facility] ALT 13 0 - 30 unit/L [facility] Alk Phos 95 35 - 105 unit/L [facility] Total Bilirubin 0.4 0.2 - 1.3 mg/dL [facility] Bili, Direct 0.1 0.0 - 0.3 mg/dL [facility] Blood specimen (specimen) 07/13/2019 12:20 AM EDT 07/13/2019 12:26 AM EDT Narrative Resulting Agency Comment Spec In Lab Mackenzie Weber MD CHEMISTRY ORDERABLES Performing Organization Address [facility] Co de Phone Number [facility] [place] [address] * (ABNORMAL) Basic Metabolic Panel (non-fasting) (07/13/2019 12:20 AM EDT) Glucose Lvl 103 65 - 199 mg/dL [facility] Comment:Diabetes: >=200 mg/d L plus symptoms BUN 17 8 - 18 mg/dL [facility] Creatinine 1.23(H) 0.70 - 1.20 mg/dL [facility] Sodium 143 135 - 145 mmol/L [facility] Potassium 3.9 3.5 - 5.0 mmol/L [facility] Comment: Please note: ??Patients with WBC >100,000 may have falsely elevated Potassium levels. ??For accurate Potassium quantification in these patients send serum separator tube (gold top) for subsequent determinations. ??Contact the Clinical Chemistry Laboratory if there are any questions. Chloride 108(H) 98 - 107 mmol/L [facility] CO2 21(L) 22 - 31 mmol/L [facility] Anion Gap 14 5 - 15 mmol/L [facility] Calcium 9.1 8.5 - 10.5 mg/dL [facility] Estimated GFR 47(L) >=60 mL/min/1. 73 m?? [facility] Comment: The eGFR was calculated using the CKD-EPI equation. As with all creatinine based estimates of kidney function, eGFR values calculated with the CKD-EPI equation are not accurate in patients with acute kidney failure, extremes of body mass or the acutely ill. [email or web address] eGFR 54(L) >=60 mL/min/1. 73 m?? [facility] Comment: The eGFR was calculated using the CKD-EPI equation. As with all creatinine based estimates of kidney function, eGFR values calculated with the CKD-EPI equation are not accurate in patients with acute kidney failure, extremes of body mass or the acutely ill. [email or web address] Blood specimen (specimen) 07/13/2019 12:20 AM EDT 07/13/2019 12:26 AM EDT Narrative Resulting Agency Comment Spec In Lab Mackenzie Weber MD CHEMISTRY ORDERABLES [facility] [place] [address] * Film Library- Storage Only CT Head (07/12/2019 8:29 PM EDT) Narrative [facility] - 07/12/2019 8:29 PM EDT This exam is auto-finalizing. It's purpose is for storage only. Morro Sena III, MD IMG FILM LIBRARY ORDERABLES [facility] [place], [place] documented in this encounter Visit Diagnoses Diagnosis Disequilibrium Dizziness and giddiness Disequilibrium Dizziness and giddiness documented in this encounter Admitting Diagnoses Diagnosis Disequilibrium Dizziness and giddiness documented in this encounter Administered Medications Inactive Administered Medications - up to 3 most recent administrations Medication Order MAR Action Action Date Dose Rate Site acetaminophen (Tylenol) (32.02 mg/mL) oral liquid 975 mg 975 mg, Per G Tube, EVERY 6 HOURS PRN, Starting on Fri07/13/19 at 0330, Until Fri07/13/19 at 1930, Pain, Fever, pain or temperature greater than 100 degrees F (measured by mouth), Should be given concomitantly if other Analgesics are ordered., Routine acetaminophen (Tylenol) suppository 975 mg 975 mg, Rectal, EVERY 6 HOURS PRN, Starting on Fri07/13/19 at 0330, Until Fri07/13/19 at 1930, Pain, Fever, pain or temperature greater than 100 degrees F (measured by mouth), Maximum dose of acetaminophen is 4000 mg from all sources in 24 hours., Routine acetaminophen (Tylenol) tablet 975 mg 975 mg, Oral, EVERY 6 HOURS PRN, Starting on Fri07/13/19 at 0330, Until Fri07/13/19 at 1930, Pain, Fever, pain or temperature greater than 100 degrees F (measured by mouth), Maximum dose of acetaminophen is 4000 mg from all sources in 24 hours., Routine albuterol (PROVENTIL) nebulizer solution 2.5 mg 2.5 mg, Nebulization, EVERY 4 HOURS PRN, Starting on Fri07/13/19 at 0330, Until Fri07/13/19 at 1930, Wheezing, Shortness of Breath, Routine Given 07/13/2019 5:26 AM EDT 2.5 mg gadoterate meglumine (DOTAREM) 0.5 mmol/mL (376.9 mg/mL) injection 13.24 mL 13.24 mL (0.2 mL/kg/dose ? 66.2 kg), Intravenous, ONCE PRN, 1 dose, Starting on Fri07/13/19 at 1131, Until Fri07/13/19 at 1131, Per Protocol, Radiology Contrast, Routine Given 07/13/2019 11:31 AM EDT 13 mLs sodium chloride 0.9% infusion 1,000 mL, at 100 mL/hr, Intravenous, CONTINUOUS, Starting on Fri07/13/19 at 0332, Until Fri07/13/19 at 1331 New Bag 07/13/2019 5:27 AM EDT 1,000 mLs 100 mL/hr documented in this encounter Active and Recently Administered Medications Times are shown in EDT. Scheduled Medication Order 07/11/2019 07/12/2019 07/13/2019 aspirin chewable tablet 81 mg 81 mg, Oral, DAILY, First dose on Fri07/13/19 at 0900, Until Discontinued, Routine 0900 (Not Given - Pr ovider: Aman Regan RN - Reason: Patient/family refused) enoxaparin (LOVENOX) injection 40 mg 40 mg, Subcutaneous, NIGHTLY, First dose on Fri07/13/19 at 2100, Until Discontinued, Routine polyethylene glycoL (Miralax) packet 17 g 17 g, Oral, DAILY, First dose on Fri07/13/19 at 0900, Until Discontinued, Routine 0900 (Not Given - Pr ovider: Negra Harris RN - Reason: Patient/family refused) senna-docusate (Pericolace) 8.6-50 mg per tablet 2 tablet 2 tablet, Oral, 2 TIMES DAILY, First dose on Fri07/13/19 at 0900, Until Discontinued, Administer to achieve 1 soft bowel movement daily without straining, Routine 0900 (Not Given - Pr ovider: Negra Harris RN - Reason: Patient/family refused) sodium chloride 0.9 % (flush) flush 5 mL 5 mL, Intravenous, 2 TIMES DAILY, First dose on Fri07/13/19 at 0900, Until Discontinued, Routine 0900 (Not Given - Pr ovider: Negra Harris RN - Reason: See comment - Comment: infusing) Continuous Medication Order 07/11/2019 07/12/2019 07/13/2019 sodium chloride 0.9% infusion 1,000 mL, at 100 mL/hr, Intravenous, CONTINUOUS, Starting on Fri07/13/19 at 0332, Until Fri07/13/19 at 1331 0527 (New Bag - Prov ider: Sherron Estrella RN) PRN Medication Order 07/11/2019 07/12/2019 07/13/2019 acetaminophen (Tylenol) (32.02 mg/mL) oral liquid 975 mg(Linked Group 1) 975 mg, Per G Tube, EVERY 6 HOURS PRN, Starting on Fri07/13/19 at 0330, Until Fri07/13/19 at 1930, Pain, Fever, pain or temperature greater than 100 degrees F (measured by mouth), Should be given concomitantly if other Analgesics are ordered., Routine acetaminophen (Tylenol) suppository 975 mg(Linked Group 1) 975 mg, Rectal, EVERY 6 HOURS PRN, Starting on Fri07/13/19 at 0330, Until Fri07/13/19 at 1930, Pain, Fever, pain or temperature greater than 100 degrees F (measured by mouth), Maximum dose of acetaminophen is 4000 mg from all sources in 24 hours., Routine acetaminophen (Tylenol) tablet 975 mg(Linked Group 1) 975 mg, Oral, EVERY 6 HOURS PRN, Starting on Fri07/13/19 at 0330, Until Fri07/13/19 at 1930, Pain, Fever, pain or temperature greater than 100 degrees F (measured by mouth), Maximum dose of acetaminophen is 4000 mg from all sources in 24 hours., Routine albuterol (PROVENTIL) nebulizer solution 2.5 mg 2.5 mg, Nebulization, EVERY 4 HOURS PRN, Starting on Fri07/13/19 at 0330, Until Fri07/13/19 at 1930, Wheezing, Shortness of Breath, Routine 0526 (Given - Provid er: Sherron Estrella RN) bisacodyL (Dulcolax) suppository 10 mg 10 mg, Rectal, DAILY PRN, Starting on Fri07/13/19 at 0330, Until Fri07/13/19 at 1930, Constipation, Administer if needed per patient's routine or if no bowel movement within 48 hours to achieve: (1) One bowel movement at least every 48 hours, AND (2) Without straining. If multiple PRN bowel medications ordered, start with magnesium hydroxide, then bisacodyl. Multiple medications may be given concomitantly for constipation., Routine enalaprilat (VASOTEC) injection 1.25 mg, Intravenous, Administer over 5 Minutes, EVERY 6 HOURS PRN, Starting on Fri07/13/19 at 0330, Until Fri07/13/19 at 1930, hypertension , Systolic blood pressure (SBP) goal Less Than 220 mmHg. Administer if inadequate blood pressure control in 30 minutes despite Labetolol or when SBP is greater than 220 mmHg or diastolic blood pressure (DBP) greater than 110 mmHg. Note: enalaprilat can be given with labetalol or nicardipine., Routine gadoterate meglumine (DOTAREM) 0.5 mmol/mL (376.9 mg/mL) injection 13.24 mL (COMPLETED) 13.24 mL (0.2 mL/kg/dose ? 66.2 kg), Intravenous, ONCE PRN, 1 dose, Starting on Fri07/13/19 at 1131, Until Fri07/13/19 at 1131, Per Protocol, Radiology Contrast, Routine 1131 (Given - Provid er: Nydia Zimmerman) labetalol (NORMODYNE,TRANDATE) injection 10-20 mg 10-20 mg, Intravenous, Administer over 2 Minutes, EVERY 15 MIN PRN, Starting on Fri07/13/19 at 0330, Until Fri07/13/19 at 1930, High Blood Pressure, - Systolic blood pressure (SBP) goal Less Than 220 mmHg. Start with 10 mg/dose every 15 minutes, If inadequate effect with 10 mg/dose then increase to 20 mg/dose for subsequent dosing. - Do not exceed 300 mg per day. - Repeat every 15 minutes for SBP greater than 220 mmHg. - Hold if pulse is less than 50 beats per minute. If Labetalol does not satisfactorily control BP within 30 minutes, consider enalaprilat or niCARdipine., Routine lidocaine (XYLOCAINE) 10 mg/mL (1 %) injection 3 mg 3 mg (0.3 mL), Subcutaneous, ONCE PRN, 1 dose, Starting on Fri07/13/19 at 0330, Until Fri07/13/19 at 1929, for discomfort with PIV insertion, Routine magnesium hydroxide (Milk of Magnesia) (240 mg/mL) oral liquid 10 mL 10 mL, Oral, NIGHTLY PRN, Starting on Fri07/13/19 at 033, Until Fri07/13/19 at 1929, Constipation, Administer if needed per patient's routine or if no bowel movement within 48 hours to achieve: (1) One bowel movement at least every 48 hours, AND (2) Without straining. If multiple PRN bowel medications ordered, start with magnesium hydroxide, then bisacodyl. Multiple medications may be given concomitantly for constipation., Routine sodium chloride 0.9 % (flush) flush 5-20 mL 5-20 mL, Intravenous, EVERY 1 MIN PRN, Starting on Fri07/13/19 at 329, Until Fri07/13/19 at 1929, flush, Flush pertains to all indwelling lines. Flush per protocol found in the job aid using the link provided on this medication record., Routine Linked Groups Order Group 1: acetaminophen (Tylenol) tablet 975 mgJump to med 975 mg, Oral, EVERY 6 HOURS PRN, Starting on Fri07/13/19 at 0330, Until Fri07/13/19 at 1929, Pain, Fever, pain or temperature greater than 100 degrees F (measured by mouth), Maximum dose of acetaminophen is 4000 mg from all sources in 24 hours., Routine Or acetaminophen (Tylenol) (32.02 mg/mL) oral liquid 975 mgJump to med 975 mg, Per G Tube, EVERY 6 HOURS PRN, Starting on Fri07/13/19 at 0330, Until Fri07/13/19 at 1929, Pain, Fever, pain or temperature greater than 100 degrees F (measured by mouth), Should be given concomitantly if other Analgesics are ordered., Routine Or acetaminophen (Tylenol) suppository 975 mgJump to med 975 mg, Rectal, EVERY 6 HOURS PRN, Starting on Fri07/13/19 at 0330, Until Fri07/13/19 at 1929, Pain, Fever, pain or temperature greater than 100 degrees F (measured by mouth), Maximum dose of acetaminophen is 4000 mg from all sources in 24 hours., Routine documented in this encounter Care Teams [employer] System Installer Helper Relationship Specialty Start Date End Date Kaylene Pinedo MD [address] [place] [address] PCP - General 09/21/13 02/21/21 documented as of this encounter
--- OUTSIDE RECORDS SUMMARY | 2023-09-08 13:49 | XMS_ITS | Encounter Summary ---
Author Organization [facility] [place] [address] Care Team Providers Care Mobile Mechanic Name Role Phone Kristen Skelton MD Primary Care Provider [phone] Reason for Visit * Reason Comments Chronic Kidney Disease Encounter Details Date Type Department Care Team (Late st Contact Info) Description 09/16/2012 10:30 AM EDT Follow-Up Nephrology [place] [address] Devin Myrick MD [facility] [place] [address] HTN (hypertension) (Primary Dx); CKD (chronic kidney disease) Discharge Disposition: Home Social History Tobacco Use [...] Sign Reading Time Taken Comments Blood Pressure 126/50 09/16/2012 10:32 AM EDT Pulse 62 09/16/2012 10:32 AM EDT Temperature - - Respiratory Rate - - Oxygen Saturation - - Inhaled Oxygen Concentration - - Weight 70.8 kg (156 lb) 09/16/2012 10:32 AM EDT Height - - Body Mass Index 24.07 08/19/2011 9:21 AM EDT documented in this encounter Progress Notes * Devin Myrick MD - 09/16/2012 10:46 AM EDT Nephrology/Hypertension Clinic Follow-up Note [id number] ID: 57 y.o.year-old female for follow up of CKD Past Medical History: GERD - Used to be on PPI Insomnia - On Trazadone at night HTN Asthma - 3 hospitalizations ( last in ) Hx of fibromyalgia Interstitial cystitis - Pain prior to urination Allergies - Environmental - Peanut Surgical: - Tonsils as child - Sinus surgery in 1992 - Cholecystectomy 08/2006 - Hernia of above incision repaired with below 09/2007 - Appendectomy 09/2007 - Repeat incisional hernia 04/2008 - TAHBSO 02/2009 Patient Active Problem List Diagnoses Code ??? CKD (chronic kidney disease) 585.9 ??? HTN (hypertension) 401.9 ??? GERD (gastroesophageal reflux disease) 530.81 Current Outpatient Prescriptions on File Prior to Visit Medication Sig Dispense Refill ??? fluticasone (FLOVENT) 110 mcg/actuation inhaler Inhale 1 puff into the lungs 2 times daily. ??? zinc sulfate (ZINCATE) 220 (50) mg capsule Take 220 mg by mouth daily. ??? MULTI-VITAMIN ORAL Take by mouth. ? ? LACTOBAC CMB #3/FOS/PANTETHINE (PROBIOTIC & ACIDOPHILUS ORAL) Take by mouth. ??? COD LIVER OIL ORAL Take 1 capsule by mouth daily. ??? acetaminophen (TYLENOL) 500 mg tablet Take by mouth as needed. 1 - 2 tablets = 1,000 mg As needed ??? SUMAtriptan (IMITREX) 50 mg tablet Take 50 mg by mouth as needed. ??? traZODone (DESYREL) 50 mg tablet Take 50 mg by mouth nightly. ??? epiNEPHrine (EPIPEN) 0.3 mg/0.3 mL injection 0.3 MG/0.3 ML, IM, as directed ??? cetirizine (ZYRTEC) 10 mg tablet 10 MG = 1 Tablet(s), PO, Once daily,PRN ??? DISCONTD: FLUoxetine (PROZAC) 10 mg capsule Take 10 mg by mouth daily. Allergies Allergen Reactions ??? Cis Free Text Allergy peanuts,ham,rice,nuts,soy seeds,wheat. ??? Cis Free Text Allergy muscle relaxants. ??? Cis Free Text Allergy many antidepressants. ??? Cis Free Text Allergy many antianxiety. ??? Cis Free Text Allergy multiple foods. ??? Corticosteroids (Glucocorticoids) ??? Erythromycin Base ??? Milk ??? Milk Based Formula ??? Penicillins CIS - Unknown, CIS - Unknown S: I am seeing this patient for the first time (taking over for Dr. Martinez). She is here with for scheduled f/u for stage 3 ckd of undetermined cause (risk factor htn, baseline cr 1.2 as of ). Urine sed bland and no proteinuria. No imaging studies in chart. She thinks she had an US inthe past year at [facility] but is not sure and does not know the result. C/O frequent bladder infections: she recalls 3-4 bladder infections in 6 months. She does not have any symptoms such as burning or pain but does have frequency and odor. She is usually treated with cephalexin. She has never seen a urologist or had any imaging or workup. There is no history of pyelonephritis. The odor normalizes with abx but the frequency persists. She carries a diagnosis of interstitial cystitis (by Dr. Irving in the ) BP has been normal. There has been no gross hematuria. Takes pepcid for chronic dyspepsia and acid sx. No overt ulcers. Wt has been stable (maybe up a couple of pounds). HAs: no migraine for > 1 year. She does have tension headaches that are not as severe. No epistaxis, apthous ulcers, cough, cp, emesis, edema, or acute arthritis. She does have occasional nausea but has a sensitive stomach. She takes schisandra adrenal complex one per day; bioastin one per day; nettle one per day O: Filed Vitals: 09/16/12 1032 BP: 126/50 Pulse: 62 General: Looks well, nad Eye: Mickey, no injection ENT: Op unremarkable Neck: jvp normal, no visible/palp mass CV: rrr without m/r/g Resp: Clear Back: no spinal or cva tenderness Abd: Soft, nt, no hsm, no audible bruit Ext: No pretib edema; pulses intact x 4 Skin: No visible rash Neuro: no focal wkns or sensory deficit Psych: Normal mood and affect Office UA: 1.005 PH 7 LE tr DIP otherwise negative Sediment: mod squamous epithelial cells, rare (0-1) WBC, no bacteria, no casts Previous Labs: Lab Results Component Value Date WBC [...] Component Value Date PHOS 3.7 04/14/2012 A/P: 57 yo woman with mild cr elevation (down from peak) as of Mar this year. She reports that US and 24 hour urine were done at [facility] but I can't locate those results in our chart. I will check with Dr. Skelton and ask her to forward if available. The etiology of CKD 3(probable dx) is not clear. Her prior records indicate htn but she is normotensive today not on conventional bp meds. She has useda variety of herbal products in the past and remains on some, listed above, so an allergic interstitial nephritis is possible but this would require a bx to establish. She has a h/o reactive airways and interstitial cystitis and could have an autoimmune mediated interstitial nephritis, but again this would entail a bx. A bx would only be indicated if the renal function is worsening or if sig proteinuria developed. As to her current supplements, there is little information on potential toxicity and no specific warnings. I have given her a lab slip for a [employer] DISP[employer] which she wants to have done locally. If this is stable or improved, I will see her back in 6 months for another evaluation, urine check, labs (including pth). With regard to her urinary sx and recurrent UTIs, I would suggest she f/u with urology. She has notbeen evaluated by them for several years or more. She may warrant a f/u cystoscopy and urodynamics.A noncontrast CT could show an occult stone or other nidus for recurrent infection. If all negative, she would meet criteria for a trial of prophylactic abx or a urinary antiseptic agent. She will discuss this with Dr. Skelton. CC: KRISTEN SKELTON MD [address] [facility] [address] documented in this encounter Plan of Treatment Upcoming Encounters Date Type Department Care Team (Late st Contact Info) Description 11/05/2023 10:00 AM EDT [place] [address] Deborah Richardson APRN documented as of this encounter Visit Diagnoses Diagnosis HTN (hypertension)- Primary Unspecified essential hypertension CKD (chronic kidney disease) Chronic kidney disease, unspecified documented in this encounter Care Teams Mobile Mechanic Relationship Specialty Start Date End Date Kristen Skelton MD [facility] [address] [place] [address] [place] [address] PCP - General 01/09/10 09/20/13 documented as of this encounter
--- OUTSIDE RECORDS SUMMARY | 2023-09-08 13:49 | XMS_ITS | Encounter Summary ---
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 [address] Follow-up (CIS Migration of GIF 06/05/10) Social History Tobacco Use Types Packs/Day Years [...] 10:00 AM EDT [place] [phone] Deborah Richardson APRN documented as of this encounter Visit Diagnoses Not on filedocumented in this encounter Care Teams Consulting Sme Relationship Specialty Start Date End Date Marianna Garcia MD HOSPITALIST SERVICES [address] [place] [address] [facility] [place] [address] PCP - General 01/09/10 09/20/13 documented as of this encounter
--- OUTSIDE RECORDS SUMMARY | 2023-09-08 13:49 | XMS_ITS | Encounter Summary ---
Author Organization [facility] [place] [address] Care Team Providers Care Door Furring Installer Name Role Phone Kaylene Pinedo MD Primary Care Provider [phone] Encounter Details Date Type Department Care Team (Late st Contact Info) Description 07/12/2019 Telephone Neurology at [facility] [place] [address] Morro Sena III, MD [facility] [address] Social History Tobacco Use Types Packs/Day Years Used Date Smoking Tobacco: Never Alcohol Use Standard Drinks/Week Comments Not Asked 0 (1 standard drink = 0.6 oz pur e alcohol) Sex and Gender Information Value Date Recorded Sex Assigned at Not on file Gender Identity Not on file Sexual Orientation Not on file documented as of this encounter Miscellaneous Notes * Telephone Encounter - Morro Sena III, MD - 07/12/2019 8:35 PM EDT Neurology Transfer Center Call Transfer Center Page: 8:26 Call to Transfer Center: 8:28 Connection to Outside Clinician: 8:30 End of Call: 8:38 Location: [facility] Calling Clinician: Dr. Childress Transfer/Consult and Reason: transfer/consult [facility] Bed Status: n/a History, Vitals, Examination, Laboratory Results, and Imaging as reported by calling Clinician: Ruthann Cody Betochacho is a 64 y.o. woman with no signifiant CV risk factors who around 1PM today had sudden onset of imbalance with listing to the L which has persisted, but not worsened. No vertigo. Examination was notable for full strength, intact sensation, intact UE coordination, + romberg and wide based gait. Vitals: 150s/80s Pertinent Labs: normal CBC, Cr 1.3 (baseline) Imaging: reported normal CT head Impression: Acute onset gait ataxia - concern for central process - stroke Not tPA candidate due to time (7+ hours since symptom onset) Recommendations: 1. Transfer to [facility] ED for further evaluation 2. She has CT contrast allergy - facial edema, so we will have to do MRI brain and MRA head and neck wo contrast - may not be able to be obtained today 3. If symptoms and exam findings persisting and no imaging available will likely admit to neuro step down Morro Sena III, MD Program Eligibility Specialist Department of Neurology [facility] [place] [address] documented in this encounter Plan of Treatment Upcoming Encounters Date Type Department Care Team (Late st Contact Info) Description 11/05/2023 10:00 AM EDT [place] [address] Deborah Richardson APRN documented as of this encounter Visit Diagnoses Not on filedocumented in this encounter Care Teams Door Furring Installer Relationship Specialty Start Date End Date Kaylene Pinedo MD [address] [place] [address] PCP - General 09/21/13 02/21/21 documented as of this encounter
--- OUTSIDE RECORDS SUMMARY | 2023-09-08 13:49 | XMS_ITS | Encounter Summary ---
Author Organization [facility] [place] [address] Care Team Providers Care Agricultural Plow Operator Name Role Phone Kaylene Pinedo MD Primary Care Provider [phone] Encounter Details Date Type Department Care Team (Late st Contact Info) Description 02/20/2021 Ancillary [place] [address] Dot Briones APRN [facility] [place] [address] Social History Tobacco Use Types Packs/Day Years [...] 10:00 AM EDT [place] [phone] Deborah Richardson APRN documented as of this encounter Procedures Procedure Name Priority Date/Time Associated Diagnosis Comments FILM LIBRARY STORAGE ONLY MR ABDOMEN Routine 02/20/2021 12:00 AM EST documented in this encounter Results * Film Library- Storage Only MR Abdomen (02/20/2021 12:00 AM EST) Narrative EDY - 04/24/2021 7:27 PM EST This exam is auto-finalizing. It's purpose is for storage only. Dotelyssa Luna Karel FAUSTIN IMG FILM LIBRAR Y ORDERABLES Performing Organization Address City/State/[facility] Co de Phone Number [place], [place] documented in this encounter Visit Diagnoses Not on filedocumented in this encounter Care Teams Agricultural Plow Operator Relationship Specialty Start Date End Date Kaylene Pinedo MD [address] [place] [address] PCP - General 09/21/13 02/21/21 documented as of this encounter
--- OUTSIDE RECORDS SUMMARY | 2023-09-08 13:49 | XMS_ITS | Encounter Summary ---
Author Organization [facility] [place] [address] Care Team Providers Care Environmental Services Assistant Name Role Phone Marianna Garcia MD Primary Care Provider [phone] Reason for Visit * Reason Onset Date Comments Abnormal Lab 11/11/2012 Encounter Details Date Type Department Care Team (Late st Contact Info) Description 11/11/2012 Telephone [place] [address] Devin Alas MD [facility] [place] [address] Abnormal Lab Social History Tobacco Use Types Packs/Day Years Used Date Smoking Tobacco: Never Alcohol Use Standard Drinks/Week Comments Not Asked 0 (1 standard drink = 0.6 oz pur e alcohol) Sex and Gender Information Value Date Recorded Sex Assigned at Not on file Gender Identity Not on file Sexual Orientation Not on file documented as of this encounter Miscellaneous Notes * Telephone Encounter - Devin Alas MD - 11/11/2012 2:22 PM EDT Message copied by DEVIN ALAS on FriNov 11, 2012 2:22 PM ------ Message from: MORELIA MEJÍA Created: FriNov 10, 2012 4:57 PM Regarding: LABS Contact: Please call with lab results Morelia I called and left the patient a message. I also wrote her a letter with her lab results. documented in this encounter Plan of Treatment Upcoming Encounters Date Type Department Care Team (Late st Contact Info) Description 11/05/2023 10:00 AM EDT [place] [address] Deborah Richardson APRN documented as of this encounter Visit Diagnoses Not on filedocumented in this encounter Care Teams Environmental Services Assistant Relationship Specialty Start Date End Date Marianna Garcia MD [facility] [address] [place] [address] [place] [address] PCP - General 01/09/10 09/20/13 documented as of this encounter
--- OUTSIDE RECORDS SUMMARY | 2023-09-08 13:49 | XMS_ITS | Encounter Summary ---
Author [facility] [place] [address] Care Team Providers Care Engineering Technician Name Role Phone Kaylene Pinedo MD Primary Care Provider [phone] Encounter Details Date Type Department Care Team (Late st Contact Info) Description 05/22/2015 Telephone [place] [address] [address] [facility] Social History Tobacco Use Types [...] * Telephone Encounter - [facility] - 05/22/2015 10:35 AM EDT Left message with patient tocall back and make follow up appointment . documented in this encounter Plan of Treatment Upcoming Encounters Date Type Department Care Team (Late st Contact Info) Description 11/05/2023 10:00 AM EDT [place] [phone] Deborah Richardson APRN documented as of this encounter Visit Diagnoses Not on filedocumented in this encounter Care Teams Engineering Technician Relationship Specialty Start Date End Date Kaylene Pinedo MD [address] [place] [address] PCP - General 09/21/13 02/21/21 documented as of this encounter
--- OUTSIDE RECORDS SUMMARY | 2023-09-08 13:49 | XMS_ITS | Encounter Summary ---
[facility] [place] [address] Care Team Providers Care Grinder Machine Knife Setter Name Role Phone Kaylene Pinedo MD Primary Care Provider [phone] Encounter Details Date Type Department Care Team (Late st Contact Info) Description 05/29/2015 Telephone [place] [address] [address] [place] Social History Tobacco [...] * Telephone Encounter - [facility] - 05/29/2015 11:14 AM EDT Left message with patient tocall back and make follow up appointment . documented in this encounter Plan of Treatment Upcoming Encounters Date Type Department Care Team (Late st Contact Info) Description 11/05/2023 10:00 AM [place]T [place] [phone] Deborah Richardson APRN documented as of this encounter Visit Diagnoses Not on filedocumented in this encounter Care Teams Grinder Machine Knife Setter Relationship Specialty Start Date End Date Kaylene Pinedo MD [address] [place] [address] PCP - General 09/21/13 02/21/21 documented as of this encounter
--- OUTSIDE RECORDS SUMMARY | 2023-09-08 13:49 | XMS_ITS | Encounter Summary ---
Author Organization [facility] [place] [address] Care Team Providers Care Pastry Chef Name Role Phone Kaylene Pinedo MD Primary Care Provider [phone] Encounter Details Date Type Department Care Team (Late st Contact Info) Description 04/16/2011 Orders Only [place]ph[place] [address] Devin Myrick MD [facility] [place] [address] Social History Tobacco Use Types Packs/Day Years [...] 10:00 AM EDT [place] [phone] Deborah Richardson APRN documented as of this encounter Procedures Procedure Name Priority Date/Time Associated Diagnosis Comments FILM LIBRARY STORAGE ONLY ULTRASOUND STUDY Routine 04/16/2011 11:28 AM EST documented in this encounter Results * Film Library- Storage only Ultrasound Study (04/16/2011 11:28 AM EST) Anatomical Region Laterality Modality Other 04/16/2011 11:2 8 AM EST Narrative 11/02/2013 11:28 AM EDT This is a Non-reportable exam Procedure Note 11/02/2013 This is a Non-reportable exam Devin Stephanie Myrick MD [facility] FILM LIBRARY ORD ERABLES documented in this encounter Visit Diagnoses Not on filedocumented in this encounter Care Teams Pastry Chef Relationship Specialty Start Date End Date Kaylene Pinedo MD [address] [place] [address] PCP - General 09/21/13 02/21/21 documented as of this encounter
--- OUTSIDE RECORDS SUMMARY | 2023-09-08 13:49 | XMS_ITS | Encounter Summary ---
Author Organization [facility] [place] [address] Care Team Providers Care Cook Helper Vegetable Name Role Phone Marianna Garcia MD Primary Care Provider [phone] Encounter Details Date Type Department Care Team (Late st Contact Info) Description 04/14/2012 3:00 PM EST Follow-Up Nephrology [place] [address] Naga Alford MD [facility] [place] [address] Renal insufficiency (Primary Dx) Discharge Disposition: Home [...] Sign Reading Time Taken Comments Blood Pressure 132/82 04/14/2012 3:24 PM EST Pulse 74 04/14/2012 3:24 PM EST Temperature - - Respiratory Rate - - Oxygen Saturation - - Inhaled Oxygen Concentration - - Weight 69.4 kg (153 lb) 04/14/2012 3:24 PM EST Height - - Body Mass Index 23.61 08/19/2011 9:21 AM EDT documented in this encounter Progress Notes * Teofilo Serra MD - 05/12/2012 1:37 PM EDT The patient was examined together with the renal fellow and I agree with his excellent note, we examined the urine sediment together which was unrevealing, so far no specific cause of the patients renal insufficiency was discovered except the fact that she has been using numerous herbal supplements over the years, the ASN and NKF advise against the use of these which are associated withchronic tubulo-interstitiel nephritis, these considerations were discussed with the patient and herhusband in detail and advised to stop herbal supplements 35 minutes of this 50 minute visit were spent with counseling * Naga Alford MD - 04/14/2012 3:40 PM EST [facility] Nephrology/Hypertension Follow Up Ruthann Wolf [id number] ID: [id number] y.o. female for follow-up on renal insufficiency PAST MEDICAL HX: GERD - Used to be on PPI [...] Repeat incisional hernia 04/2008 - TAHBSO 02/2009 Subjective: Patient referred for evaluation of renal insufficiency. Was seen by Dr. Martinez on August/2011 with preliminary work-up unrevealing. Recently she was recently treated for UTI, with ciprofloxacin. On that occasion her Cr was 1.5 which seems to be around her baseline (1.4-1.5) She does not have any other symptoms and her chronic conditions seem to be under control. Prozac was recently added to treat her depression but no other medications has been added She was on PPI for GERD but has been off it for several months. She does not take NSAIDs, no history of contrast exposure, recurrent pyelonephritis or kidney stones. No clinical evidence of autoimmune disease. She does take some OTC and herbal products including Estrotone, vitamin C and zinc tablets ROS: -no fever, chills, night sweats -no headache, blurring of vision, diplopia -no dysphagia, hearing problems -no chest pain, palpitation, no DEL CID, orthopnea -no cough or SOB -no abdominal pain, nausea, vomiting or diarrhea -no rash -no neuropathy -no LE swelling -no change in mood -no heat or cold intolerance Medications: Prior to Admission medications Medication Sig Start Date End Date Taking? Authorizing Provider fluticasone (FLOVENT) 110 mcg/actuation inhaler Inhale 1 puff into the lungs 2 times daily. Yes Rox Almazan MD FLUoxetine (PROZAC) 10 mg capsule Take 10 mg by mouth daily. Yes Rox Almazan MD niacinamide 500 mg tablet Take 500 mg by mouth daily. Yes Rox Almazan MD ascorbic acid (VITAMIN C) 500 mg tablet Take 500 mg by mouth daily. Yes Rox Almazan MD zinc sulfate (ZINCATE) 220 (50) mg capsule Take 220 mg by mouth daily. Yes Rox Almazan MD MULTI-VITAMIN ORAL Take by mouth. Yes Rox Almazan MD LACTOBAC CMB #3/FOS/PANTETHINE (PROBIOTIC & ACIDOPHILUS ORAL) Take by mouth. Yes Rox Almazan MD pantoprazole (PROTONIX) 40 mg tablet Take 40 mg by mouth daily. Yes Rox Almazan MD COD LIVER OIL ORAL Take 1 capsule by mouth daily. Yes Rox Almazan MD acetaminophen (TYLENOL) 500 mg tablet Take by mouth as needed. 1 - 2 tablets = 1,000 mg As needed 05/29/10 Yes Rox Almazan MD Cholecalciferol, Vitamin D3, 1,000 unit Tab Take 1,000 Units by mouth every morning. Pt. Takes 2-3 times weekly 05/29/10 Yes Rox Almazan MD SUMAtriptan (IMITREX) 50 mg tablet Take 50 mg by mouth as needed. Yes Rox Almazan MD traZODone (DESYREL) 50 mg tablet Take 50 mg by mouth nightly. Yes Rox Almazan MD epiNEPHrine (EPIPEN) 0.3 mg/0.3 mL injection 0.3 MG/0.3 ML, IM, as directed 03/13/10 Yes cetirizine (ZYRTEC) 10 mg tablet 10 MG = 1 Tablet(s), PO, Once daily,PRN 03/13/10 Yes Allergies / ADRs: Allergies Allergen Reactions ??? Cis Free Text Allergy peanuts,ham,rice,nuts,soy seeds,wheat. ??? Cis Free Text Allergy muscle relaxants. ??? Cis Free Text Allergy many antidepressants. ??? Cis Free Text Allergy many antianxiety. ??? Cis Free Text Allergy multiple foods. ??? Corticosteroids (Glucocorticoids) ??? Erythromycin Base ??? Milk ??? Milk Based Formula ??? Penicillins CIS - Unknown, CIS - Unknown PHYSICAL EXAM: Filed Vitals: 04/14/12 1524 BP: 132/82 Pulse: 74 Gen - AAO x 3 in NAD Skin - No rash HEENT - Moist mucous membranes Chest: Lungs clear to auscultation, no wheezes/ rhonchi/ crackles. Heart - S1/S2 normal, no murmur, gallop, or rub. JVP not elevated. Abd - Soft. + BS. No bruit. Non tender. No organomegaly. Ext - Warm. No cyanosis. No dependent edema. Labs/ Imaging: Lab Results Component Value Date WBC 5.7 04/14/2012 RBC 4.49 04/14/2012 HGB 13.7 04/14/2012 HCT 40.6 04/14/2012 MCV 90.4 04/14/2012 MCH 30.5 04/14/2012 MCHC 33.7 04/14/2012 PLATELET 209 04/14/2012 RDWCV 13.4 04/14/2012 Lab Results Component Value Date CREATININE 1.24* 04/14/2012 BUN 17 04/14/2012 NA 143 04/14/2012 K 3.8 04/14/2012 CL 105 04/14/2012 CO2 27 04/14/2012 Lab Results Component Value Date PTH 44 04/14/2012 CALCIUM 9.5 04/14/2012 PHOS 3.7 04/14/2012 Prot/Cr ratio: negative Microalbuminuria: negative Urine dipstick: negative for blood, protein, leukocytes Urine microscopy: few epithelial cells Impression/ Plan: 1. Renal insufficiency: Unclear etiology, work-up unrevealing so far. Urine microscopy is unremarkable. No proteinuria, microalbuminuria, hematuria, evidence of systemic disease (diabetes, LES, vasculitis), contrast exposure, NSAIDs/PPI exposure. She does take vitamin C and herbal products (Estrotone). Vitamin C may produce nephrotoxicity in high doses. Herbal products certainly can be nephrotoxic since most of the times it is unknown the specific components they have and their terminal operations manager side effects. At this point would advise to stop all herbal products and vitamin C and will monitor kidneyfunction. If kidney function deteriorates over the time may consider kidney biopsy to clarify diagno sis. Cr is down to 1.24 today with GFR 45 that indicates recent bump in Cr may have been secondary to UTI, already treated. However we need to monitor kidney function every 3 months Plan: - Stop herbal products (Estrotone) and vitamin C - Repeat BMP in 3 months - Avoid NSADs and PPIs - AVoid contrast exposure Follow up: 3 months Seen and Discussed w/ Dr. Ricardo Garcia MD Nephrology Fellow Pager# [phone] Marianna Garcia MD [phone] [facility] [id number] documented in this encounter Miscellaneous Notes * Addendum Note - Teoiflo Serra MD - 05/12/2012 1:37 PM EDTAddended by: TEOFILO SERRA on: 05/12/2012 01:37 PM Modules accepted: Level of Service documented in this encounter Plan of Treatment Upcoming Encounters Date Type Department Care Team (Late st Contact Info) Description 11/05/2023 10:00 AM EDT [place] [address] Deborah Richardson APRN documented as of this encounter Procedures Procedure Name Priority Date/Time Associated Diagnosis Comments PTH Routine 04/14/2012 4:38 PM EST Renal insufficiency DIFFERENTIAL, AUTOMATED Routine 04/14/2012 4:38 PM EST CBC (WITH DIFF) Routine 04/14/2012 4:38 PM EST Renal insufficiency PHOSPHORUS Routine 04/14/2012 4:38 PM EST Renal insufficiency BASIC METABOLIC PANEL (NON-FASTING) Routine 04/14/2012 4:38 PM EST Renal insufficiency U ALBUMIN/CRE RATIO Routine 04/14/2012 2 :30 PM EST Renal insufficiency PROTEIN ELECTROPHORESIS, URINE, RANDOM Routine 04/14/2012 2:30 PM EST Renal insufficiency documented in this encounter Results * Differential, Automated (04/14/2012 4:38 PM EST) Neutrophils % 41.9 34.0 - 71.0 % CERNER MILLENNIUM Neutr Abs (ANC) 2.37 1.50 - 6.30 x10(3)/mcL CERNER MILLENNIUM Lymphocytes % 45.9 19.0 - 53.0 % CERNER MILLENNIUM Lymphocytes Abs 2.6 1.0 - 3.6 x10(3)/mcL CERNER MILLENNIUM Monocytes % 6.4 4.0 - 13.0 % CERNER MILLENNIUM Monocyte Abs 0.4 0.2 - 1.0 x10(3)/mcL CERNER MILLENNIUM Eosinophils % 5.1 0.0 - 7.0 % CERNER MILLENNIUM Eosinophils Abs 0.3 0.0 - 0.5 x10(3)/mcL CERNER MILLENNIUM Basophils % 0.7 0.0 - 2.0 % CERNER MILLENNIUM Basophils [...] 0.05 x10(3)/mcL CERNER MILLENNIUM Blood specimen (specimen) 04/14/2012 4:38 PM EST 04/14/2012 4:46 PM EST Teofilo Serra MD HEMATOLOGY ORDERABLE S Performing Organization Address City/[facility] Co de Phone Number [facility] * PTH (04/14/2012 4:38 PM EST) Pathologist [facility] PTH 44 15 - 65 pg/mL [facility] MILLENNIUM Blood specimen (specimen) 04/14/2012 4:38 PM EST 04/14/2012 4:46 PM EST Narrative Resulting Agency Comment Spec In Lab Teofilo Serra MD CHEMISTRY ORDERABLES Performing Organization Address [facility] Co de Phone Number [facility] * Phosphorus (04/14/2012 4:38 PM EST) Pathologist [facility] Phosphorus 3.7 2.5 - 4.5 mg/dL [facility] Blood specimen (specimen) 04/14/2012 4:38 PM EST 04/14/2012 4:46 PM EST Narrative Resulting Agency Comment Spec In Lab Teofilo Serra MD CHEMISTRY ORDERABLES Performing Organization Address [facility] Co de Phone Number [facility] * (ABNORMAL) Basic Metabolic Panel (non-fasting) (04/14/2012 4:38 PM EST) Pathologist [facility] Glucose Lvl 78 60 - 199 mg/dL [facility] Comment:Diabetes: >=200 mg/d L plus symptoms BUN 17 8 - 18 mg/dL [facility] MILLENNIUM Creatinine 1.24(H) 0.70 - 1.20 mg/dL [facility] MILLENNIUM Comment: Please note that the pediatric reference intervals supplied above were not validated at [facility] [place]. Results from pediatric patients should be interpreted in conjunction to the patient's age, height and muscle mass. Sodium 143 135 - 145 mmol/L [facility] MILLENNIUM Potassium 3.8 3.5 - 5.0 mmol/L [facility] MILLENNIUM Comment: Please note: ??Patients with WBC >100,000 may have falsely elevated Potassium levels. ??For accurate Potassium quantification in these patients send serum separator tube (gold top) for subsequent determinations. ??Contact the Clinical Chemistry Laboratory if there are any questions. Chloride 105 98 - 107 mmol/L CERNER MILLENNIUM CO2 27 22 - 31 mmol/L CERNER MILLENNIUM Anion Gap 11 5 - 15 mmol/L CERNER MILLENNIUM Calcium 9.5 8.5 - 10.5 mg/dL CERNER MILLENNIUM Estimated GFR 45(L) >=60 CERNER MILLENNIUM Comment: The National Kidney [...] J Am Soc Nephrol;6:1963-72. Blood specimen (specimen) 04/14/2012 4:38 PM EST 04/14/2012 4:46 PM EST Narrative Resulting Agency Comment Spec In Lab Teofilo Serra MD CHEMISTRY ORDERABLES Performing Organization Address [facility] de Phone Number CERNER RICKENNIUM * CBC (with Diff) (04/14/2012 4:38 PM EST) WBC 5.7 4.0 - 10.0 x10(3)/mcL CERNER MILLENNIUM RBC 4.49 3.93 - 5.22 x10(6)/mcL CERNER MILLENNIUM Hemoglobin 13.7 11.2 - 15.7 gm/dL CERNER MILLENNIUM Hematocrit 40.6 34.0 - 45.0 % CERNER MILLENNIUM MCV 90.4 79.0 - 94.0 fL CERNER MILLENNIUM MCH 30.5 26.6 - 32.2 pg CERNER MILLENNIUM MCHC 33.7 32.0 - 36.5 gm/dL CERNER MILLENNIUM Platelets 209 145 - 370 x10(3)/mcL CERNER MILLENNIUM RDWSD 44.4 35.0 - 46.0 fL CERNER MILLENNIUM RDWCV 13.4 10.9 - 14.4 % CERNER MILLENNIUM MPV 11.6 9.0 - 12.0 fL CERNER MILLENNIUM Blood specimen (specimen) 04/14/2012 4:38 PM EST 04/14/2012 4:46 PM EST Narrative Resulting Agency Comment Spec In Lab Teofilo Serra MD HEMATOLOGY ORDERABLE S Performing Organization Address [facility] de Phone Number [facility] * Microalbumin, urine, random (04/14/2012 2:30 PM EST) U Creatinine 26 mg/dL CERNER MILLENNIUM U Albumin Conc, Random <3.0 mg/L CERNER MILLENNIUM Alb/Cr Ratio, Random <12 mcg/mg Cr CERNER MILLENNIUM Comment: Reference Range* Random collection (mcg/mg creatinine) Normal ?<30 Microalbuminuria ?? 30 - 300 Clinical Albuminuria ?? >300 *[place] Diabetes Association. Diabetic Nephropathy. Diabetes Care 1996;(Suppl 1):S24-S27 Exercise within 24 hour, infection, fever, CHF, marked hyperglycemia, and marked hypertension may elevate urinary albumin excretion over baseline values. Urine specimen (specimen) 04/14/2012 2:30 PM EST 04/14/2012 4:38 PM EST Narrative Resulting Agency Comment Spec In Lab Teofilo Serra MD URINE ORDERABLES Performing Organization Address City/[facility] Co de Phone Number LAXMI MERCADO * Protein Electrophoresis, urine, random (04/14/2012 2:30 PM EST) U Protein Ran <6 0 - 12 mg/dL CERNER MILLENNIUM U Albumin Not Perf % total CERNER MILLENNIUM Comment: Total Protein concentration too low to fractionate using current electrophoretic technique. U Globulin Not Perf % total CERNER MILLENNIUM U M Band Not Applicable None Detected % total CERNER MILLENNIUM U Scan Not Applicable CERNER MILLENNIUM Urine specimen (specimen) 04/14/2012 2:30 PM EST 04/14/2012 4:38 PM EST Narrative Resulting Agency Comment Spec In Lab Teofilo Serra MD URINE ORDERABLES Performing Organization Address City/[facility] Co de Phone Number LAXMI MERCADO documented in this encounter Visit Diagnoses Diagnosis Renal insufficiency- Primary Unspecified disorder of kidney and ureter documented in this encounter Care Teams Cook Helper Vegetable Relationship Specialty Start Date End Date Marianna Garcia MD HOSPITAL[facility] SERVICES [address] [place] [address] [place] [address] PCP - General 01/09/10 09/20/13 documented as of this encounter
--- OUTSIDE RECORDS SUMMARY | 2023-09-08 13:49 | XMS_ITS | Encounter Summary ---
Author Organization [facility] [place] [address] Care Team Providers Care Colorist Name Role Phone Marianna Garcia MD Primary Care Provider [phone] Encounter Details Date Type Department Care Team (Late st Contact Info) Description 05/16/2010 12:30 PM EDT Procedure visit [place] [address] Marcio Franklin MD [facility] [place] [address] Social History Tobacco Use Types Packs/Day Years [...] 10:00 AM EDT Office [place] [address] Deborah Richardson APRN documented as of this encounter Visit Diagnoses Not on filedocumented in this encounter Care Teams Colorist Relationship Specialty Start Date End Date Marianna Garcia MD HOSPITALIST [facility] [address] [place] [address] [place] [address] PCP - General 01/09/10 09/20/13 documented as of this encounter
--- OUTSIDE RECORDS SUMMARY | 2023-09-08 13:49 | XMS_ITS | Encounter Summary ---
Author Organization [facility] [place] [address] Care Team Providers Care Forgeman Helper Name Role Phone Kaylene Pinedo MD Primary Care Provider [phone] Encounter Details Date Type Department Care Team (Late st Contact Info) Description 05/16/2020 Ancillary Procedure [place] [address] [facility] [place] [address] Social History Tobacco Use Types Packs/Day Years [...] 10:00 AM EDT [place] [address] Deborah Richardson APRN documented as of this encounter Procedures Procedure Name Priority Date/Time Associated Diagnosis Comments FILM LIBRARY STORAGE ONLY ULTRASOUND STUDY Routine 05/16/2020 12:00 AM EDT documented in this encounter Results * Film Library- Storage Only Ultrasound Study (05/16/2020 12:00 AM EDT) Narrative EDY - 04/24/2021 7:32 PM EST This exam is auto-finalizing. It's purpose is for storage only. Dot Vinson APRN IMG FILM LIBRAR Y ORDERABLES Performing Organization Address City/State/[facility] Co de Phone Number [place], [place] documented in this encounter Visit Diagnoses Not on filedocumented in this encounter Care Teams Forgeman Helper Relationship Specialty Start Date End Date Kaylene Pinedo MD [address] [place] [address] PCP - General 09/21/13 02/21/21 documented as of this encounter
[2023-09-08 18:49] LABS: Anion Gap 8.9 mmol/L (3-11); BUN 20 mg/dL (7-18); CO2 26.1 mmol/L (21.0-32.0); CREATININE 1.5 mg/dL (0.55-1.02); Calcium 9.2 mg/dL (8.5-10.1); Chloride 106 mmol/L (98-107); Estimated GFR 37.96 (mL/min/1.73m2); Glucose 74 mg/dL (74-106); Magnesium 2.2 mg/dL (1.8-2.4); Potassium 4.7 mmol/L (3.5-5.1); Sodium 141 mmol/L (136-145); TSH (W/Ref FT4) 1.52 uIU/mL (0.36-3.74)
== END 2023-09-08 13:38 | disposition home or self-care (01) ==
LOC: NCHCN 13:37
PROVIDERS: PCP Family Medicine; Visit Provider Nurse Practitioner Family
DX: K21.9 Gastro-esophageal reflux disease without esophagitis (principal); F41.8 Other specified anxiety disorders; Z51.81 Encounter for therapeutic drug level monitoring; Z79.899 Other long term (current) drug therapy
CPT/HCPCS: 80048; 83735; 84443

== ENCOUNTER 2024-03-04 21:45 | Outpatient (REF) | payer MEDICARE, BC, SELFPAY ==
[2024-03-04 15:56] LABS: Bilirubin Negative (Negative); Blood Small (Negative); Clarity Clear (Clear); Glucose Negative (Negative); Ketones Negative (Negative); Leukocyte Esterase Negative (Negative); Nitrite Negative (Negative); Specific Gravity <= 1.005 (1.005-1.025); Urobilinogen 0.2 mg/dL (Up to 0.2)
[2024-03-04 16:13] LABS: Bacteria Negative HPF (Negative); C & S Indicated? No; Casts Negative LPF (Negative); Crystals Negative HPF (Negative); Epithelial Cells Rare HPF (Negative); Mucus Negative (Negative); RBC 0-2 HPF (0-2); WBC 0-2 HPF (0-5)
--- OUTSIDE RECORDS SUMMARY | 2024-03-04 21:47 | XMS_ITS | Referral Summary ---
Author Organization [facility] Address [address] [place] [address] Care Team Providers Care High Density Press Laborer Name Role Phone Kaylene Pinedo MD Primary Care Provider [phone] Allergies Active Allergy Reactions Criticality Noted Date Comments Chocolate Flavor 10/06/2018 [place] 10/06/2018 Cheese 08/30/2016 Erythromycin Nausea Only 08/07/2016 [...] Shellfish Containing Products 10/06/2018 Soy 10/06/2018 Tiotropium [place] 10/06/2018 Corticosteroids (Glucocorticoids) 08/07/2016 roid rage Hydrocodone-Acetaminophen 08/07/2016 Slowed breathing, heartbeat, nervousness, confusion, lightheadedness, restlessness, headache, general feeling of discomfort/illness Medications fexofenadine (RONALD) 180 mg tablet Take 180 [...] unsure Active MULTIVITAMIN ORAL Take by mouth. Activ e TURMERIC ORAL Take by mouth. A ctive ergocalciferol, vitamin D2, (VITAMIN D ORAL) Take by mouth. With vitamin k Active cyanocobalamin, vitamin B-12, (VITAMIN B12 ORAL) Take by mouth. Activ e CALCIUM ORAL Take by mouth. Ac tive NONFORMULARY sproutbiotic Acti ve acetaminophen (TYLENOL) 500 mg tablet Take 500 mg by mouth every 6 hours as needed for Pain. Active predniSONE (DELTASONE) 10 mg tabletIndication s:Severe persistent asthma with (acute) exacerbation Take 40 mg po daily x 2 days, 30 mg daily x 2 days, 20 mg x 2 days, 10 mg x 2 days, 5 mg x 2 days. 21 Tab 0 Active Additional Information Patient not taking.Reported on [...] 09/19/2019 Verbally Threaten Not on file 09/19/2019 Comments Unknown Sex and Gender Information Value Date Recorded Sex Assigned at Not on file Legal Sex Female 18:19 EST Gender Identity Not on file Sexual Orientation [...] Index 22.73 10/06/2018 1340 EDT Functional Status * Because of a physical, mental, or emotional condition, does this person have difficulty doing errands alone such as visiting a doctor's office or shopping? Answer Date of Assessment Author Yes 11/05/2016 10:20 EDT Mental Status * Because of a physical, mental, or emotional condition, does this person have serious difficulty concentrating, remembering, or making decisions? Answer Entry Date Author Yes 11/05/2016 10:20 EDT Plan of Treatment Not on file Insurance MEDICARE ANTH Advance Directives For more information, please contact: [phone] Documents on File Type Date Recorded Patient Biochemistry Professor Expl anation Advance Directive 05/27/2019 12:44 [place] Antonella ce Directive for Health Care-Signed 2019-05-18 Care Teams High Density Press Laborer Relationship Specialty Start Date End Date Kaylene Pinedo MD [address] [place] [id number] PCP - General 08/07/16
--- OUTSIDE RECORDS SUMMARY | 2024-03-04 21:47 | XMS_ITS | Clinical Summary ---
Author Organization [facility] Address [address] [place] [address] Care Team Providers Care Band Teacher Name Role Phone Kaylene Pinedo MD Primary Care Provider [phone] Allergies Active Allergy Reactions Criticality Noted Date Comments Chocolate Flavor 10/06/2018 [place] 10/06/2018 Cheese 08/30/2016 Erythromycin Nausea Only 08/07/2016 [...] Shellfish Containing Products 10/06/2018 Soy 10/06/2018 Tiotropium [place] 10/06/2018 Corticosteroids (Glucocorticoids) 08/07/2016 roid rage Hydrocodone-Acetaminophen [...] Last Done Comments Hepatitis C Screen 1955 Fall Risk Screening 01/14/2021 COVID-19 Vaccine (2023-25 season) 2023 RSV Immunization ( o r 60+ Years) (1 - 1-dose 75+ series) 01/14/2031 Insurance MEDICARE [facility] Advance Directives For more information, please contact: [phone] Documents on File Type Date Recorded Patient Data Mining Analyst Expl anation Advance Directive 05/27/2019 12:44 [place] Antonella ce Directive for Health Care-Signed 2019-05-18 Care Teams Band Teacher Relationship Specialty Start Date End Date Kaylene Pinedo MD [address] [place] [id number] PCP - General 08/07/16
--- OUTSIDE RECORDS SUMMARY | 2024-03-04 21:48 | XMS_ITS | Encounter Summary ---
Author Organization [facility] Address [address] [place] [address] Care Team Providers Care Electric Pile Driver Operator Name Role Phone Kaylene Pinedo MD Primary Care Provider [phone] Reason for Visit * Reason Comments Chronic Kidney Disease * Consult (Routine) - Closed Specialty Diagnoses / Procedures [facility] Referred To Contact Diagnoses Renal disease Kaylene Pinedo MD [address] [place] [address] Phone: tel: fax: Deangelo Cheek MD Referral ID Status Reason Start Date Expiration Date Visits Re quested Visits Authorized [id number] Closed 1 1 Encounter Details Date Type Department Care Team (Late st Contact Info) Description 11/05/2016 10:00 EDT Office Visit [facility] Nephrology - [address] [address] Inge Rojas MD Susarla, Sree Rama Chandra Sekhar, MD Chronic kidney disease, stage III (moderate) ([facility]) (Primary Dx) Discharge Disposition: Auto Discharge Social History Tobacco Use Types Packs/Day Years Used Date Smoking Tobacco: Never Smokeless Tobacco: Never Comments Unknown Sex and Gender Information Value [...] EDT documented in this encounter Functional Status * Because of a physical, mental, or emotional condition, does this person have difficulty doing errands alone such as visiting a doctor's office or shopping? Answer Date of Assessment Author Yes 11/05/2016 10:20 EDT documented as of this encounter Mental Status * Because of a physical, mental, or emotional condition, does this person have serious difficulty concentrating, remembering, or making decisions? Answer Entry Date Author Yes 11/05/2016 10:20 EDT documented in this encounter Discharge Diagnoses Diagnosis N18.3 Chronic [...] documented in this encounter Progress Notes * Deangelo Cheek MD - 11/05/2016 1000 EDT DATE OF SERVICE: 11/05/2016 Chief Complaint Patient presents with ??? Chronic Kidney Disease HISTORY OF PRESENTING ILLNESS: This is a pleasant 61 y.o. year old female who was referred to Nephrology clinic by Kaylene Pinedo for Chronic Kidney disease is currently accompanied by her . She used to follow up with [facility] [place] but wanted to move here now. She was noted to have elevation in her creatinine a decade ago and her GFR was noted to be around 35 - 39ml/min then. She started seeing a nuclear medicine pet ct technologist 6 to 7 yrs ago at [facility]. She saw them a few times but a specific reason was apparently not found. She tells me that her Kidney function remained stable in the past 10 yrs. 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 Mostly independent of her ADLs. FAMILY [...] 1 Tab by mouth daily. ??? omega 4-ark-hsz-fish oil 120-180-600 mg capsule Take by mouth. [...] Bilirubin Neg Neg Ketones Neg Neg Specific [place] 1.010 1.001 - 1.035 Blood Trace (A) Neg pH 6.5 4.6 - 8.0 Protein Neg Neg Urobilinogen 0.2 0.2 - 1.0 E.U./dl Nitrite Neg Neg Leuk Esterase Neg Neg Tech ID [id number] Urine microscopy done on the sediment of [...] from prior Nephrology visits at [facility]. Her BP today in the clinic is [...] EDT Chronic kidney disease, stage III (moderate) ([facility]) URINE JTAAMEQ-CZ-XYALGBOM NE RATIO (ACR) Routine 11/05/2016 11:08 EDT Chronic kidney disease, stage III (moderate) ([facility]) documented in this encounter Results * (ABNORMAL) NEPHROLOGY PROFILE (INCLUDES BUN, CREATININE, CALCULATED GFR, ELECTROLYTES, CALCIUM, PHOSPHORUS, ALBUMIN) (11/05/2016 11:33 EDT) Sodium 141 136 - 145 mEq/L 11/05/2016 13:27 [facility] Potassium 4.2 3.5 - 5.0 mEq/L 11/05/2016 13:27 [facility] Chloride 107 96 - 110 mEq/L 11/05/2016 13:27 [facility] CO2 23 22 - 32 mEq/L 11/05/2016 13:27 [facility] BUN 23 10 - 26 mg/dl 11/05/2016 13:27 [facility] Creatinine 1.19(H) 0.52 - 1.04 mg/dl 11/05/2016 13:27 [facility] GFR, Calculated 50(L) >60 ml/min/1.7 3m2 11/05/2016 13:27 [facility] Comment: eGFR calculated using CKD-EPI equation for non Americans. Multiply eGFR by 1.16 for Americans. Calcium 9.7 8.5 - 10.5 mg/dl 11/05/2016 13:27 [facility] Calculated Calcium 9.5 8.5 - 10.5 mg/dl 11/05/2016 13:27 [facility] Phosphorus 3.8 2.5 - 4.5 mg/dl 11/05/2016 13:27 [facility] Albumin 4.3 3.4 - 4.9 g/dl 11/05/2016 13:27 [facility] Blood specimen (specimen) BLOOD SPECIMEN / Unknown 11/05/2016 11:33 EDT 11/05/2016 12:37 EDT us Deangelo Cheek MD PACKAGES & D NA PROBE ORDERABLES Final Result [facility] [address] [place] [address] * HEMAGRAM (11/05/2016 11:33 EDT) WBC 5.56 4.0 - 12.4 K/cmm 11/05/2016 12:58 EDT [facility] RBC 4.40 3.86 - 5.04 M/cmm 11/05/2016 12:58 EDT [facility] Hemoglobin 13.0 11.6 - 15.2 gm/dl 11/05/2016 12:58 EDT [facility] HCT 38.3 34.9 - 44.4 % 11/05/2016 12:58 T [facility] MCV 87 81 - 98 fl 11/05/2016 12:58 T [facility] MCH 29.5 26.7 - 33.3 pg 11/05/2016 12:58 [facility] MCHC 33.9 32.1 - 35.9 gm/dl 11/05/2016 12:58 T [facility] RDW-CV 12.9 <14.7 % 11/05/2016 12:58 [facility] RDW-SD 41.1 <50.4 fl 11/05/2016 12:58 [facility] PLT 205 141 - 377 K/cmm 11/05/2016 12:58 [facility] MPV 12.4 9.5 - 12.7 fl 11/05/2016 12:58 [facility] Blood specimen (specimen) BLOOD SPECIMEN / Unknown 11/05/2016 11:33 EDT 11/05/2016 12:37 EDT us Deangelo Cheek MD HEMATOLOGY & PF4 ORDERABLES Final Result [facility] [address] [place] [address] * (ABNORMAL) POCT URINE DIPSTICK (11/05/2016 11:19 EDT) Color YELLOW 11/05/2016 11:17 EDT [facility] Clarity, UA Clear 11/05/2016 11:17 EDT [facility] Glucose Neg Neg 11/05/2016 11:17 T [facility] Bilirubin Neg Neg 11/05/2016 11:17 T [facility] Ketones Neg Neg 11/05/2016 11:17 [facility] Specific [place] 1.010 1.001 - 1.035 11/05/2016 11:17 T [facility] Blood Trace(A) Neg 11/05/2016 11:17 T [facility] pH 6.5 4.6 - 8.0 11/05/2016 11:17 T [facility] Protein Neg Neg 11/05/2016 11:17 [facility] Urobilinogen 0.2 0.2 - 1.0 E.U./dl 11/05/2016 11:17 [facility] Nitrite Neg Neg 11/05/2016 11:17 [facility] Leuk Esterase Neg Neg 11/05/2016 11:17 [facility] certified registered nurse practitioner ID [id number] 11/05/2016 11:17 T [facility] Comment:Test Performed at [facility]al Services Urine specimen (specimen) URINE / Unknown 11/05/2016 11:19 EDT 11/05/2016 11:17 EDT us Deangelo Cheek MD POINT OF CAR E TEST ORDERABLES Final Result [facility] [address] [place] [address] * ALBUMIN, URINE (11/05/2016 11:08 EDT) Creatinine, Urn [place] 32.0 mg/dl 11/06/2016 8:53 T [facility] Ur Albumin mg/dl 0.4 mg/dl 11/06/2016 10:38 [facility] Ur Alb ug/mg Crea 12.5 ug/mg Crea 11/06/2016 10:38 T [facility] Comment: Normal: <30 ug/mg creat High albuminuria: 30-300 ug/mg creat Very high albuminuria: >300 ug/mg creat Urine specimen (specimen) URINE / Unknown 11/05/2016 11:08 EDT 11/05/2016 14:57 EDT us Deangelo Cheek MD CHEMISTRY & BLOOD GAS ORDERABLES Final Result [facility] [address] [place] [address] documented in this encounter Visit Diagnoses Diagnosis Chronic kidney disease, stage III (moderate) ([facility])- Primary Chronic kidney disease, Stage III (moderate) documented in this encounter Historical Medications * This list may reflect changes made after this encounter. levalbuterol (XOPENEX HFA) 45 mcg/actuation inhaler Inhale 90 mcg as directed as needed for Wheezing. estradiol (ESTRACE) 0.01 % (0.1 mg/gram) vaginal cream Place vaginally. 2-3 days in the evening VITAMIN B COMPLEX ORAL Take by mouth. 10/07/19 famotidine (PEPCID) 20 mg tablet Take 20 mg by mouth as needed. 10/06/2018 acetaminophen (TYLENOL) 650 mg CR tablet Take 1,300 mg by mouth as needed for Pain. 10/06/2018 added in this encounter Care Teams Electric Pile Driver Operator Relationship Specialty Start Date End Date Kaylene Pinedo MD [address] [place] [address] PCP - General 08/07/16 documented as of this encounter
--- OUTSIDE RECORDS SUMMARY | 2024-03-04 21:48 | XMS_ITS | Encounter Summary ---
Author Organization [facility] Address [address] [place] [address] Care Team Providers Care Flake Miller Helper Name Role Phone Kaylene Pinedo MD Primary Care Provider [phone] Encounter Details Date Type Department Care Team (Late st Contact Info) Description 08/24/2021 Lab Requisition [facility] - Main [address] [id number] Mick Moss MD [address] [place] [phone] Functional dyspepsia; Gastro-esophageal reflux disease without [...] documented as of this encounter Functional Status * Because of [...] 11/05/2016 10:20 EDT documented in this encounter Plan of [...] explore management options, if applicable. 08/27/2021 15:50 [facility] Final Diagnosis A. DUODENUM, BIOPSY: - [...] RECTOSIGMOID, POLYP: - Tubular adenoma. 08/27/2021 15:50 [facility] Diagnosis Comment C. Deeper levels were examined. 08/27/2021 15:50 [facility] Attestation By the signature below, the attending physician certifies that they have 1) personally conducted a gross and/or microscopic examination of the described specimen(s), and/or personally interpreted the results of laboratory testing of the described specimen(s), and 2) personally rendered or confirmed the above diagnosis. 08/27/2021 15:50 [facility] at 1550 Clinical History GERD 08/27/2021 15:50 EDT [facility] Gross Description A. Received in formalin [...] cm. Submitted intact in 1 cassette. YURY LISSETTE 08/24/2021 13:07 08/27/2021 15:50 EDT [facility] Performing Lab [facility] 12/2021 15:50 EDT [facility] Scanned Images 08/27/2021 15:50 EDT [facility] Tissue ENTIRE COLON / Unknown [...] Unknown 08/23/2021 8:14 EDT 08/24/2021 11:05 EDT us Mick Moss MD PATHOLOGY ORDERABLES Final Result [facility] [address] [place] [address] documented in this encounter Visit Diagnoses Diagnosis Functional dyspepsia Dyspepsia and other specified disorders of function of stomach Gastro-esophageal reflux disease without esophagitis Esophageal reflux Other chest pain Eructation Flatulence, eructation, and gas pain documented in this encounter Care Teams Flake Miller Helper Relationship Specialty Start Date End Date Kaylene Pinedo MD [address] [place] [address] PCP - General 08/07/16 documented as of this encounter
--- OUTSIDE RECORDS SUMMARY | 2024-03-04 21:48 | XMS_ITS | Encounter Summary ---
Author Organization [facility] Address [address] [place] [address] Care Team Providers Care Aerosol Line Operator Name Role Phone Kaylene Pinedo MD Primary Care Provider [phone] Reason for Referral * PT/OT/ST (Routine) - New Request Specialty Diagnoses / Procedures Referred By Leidy lemon Referred To Contact Diagnoses Neck pain Spondylosis of cervical region without myelopathy or radiculopathy Marianna Olson MD Phone: tel: fax: Referral ID Status Reason Start Date Expiration Date Visits Requested Visits Authorized [id number] New Request Specialty Services Required 08/27/2017 1 1 Question Answer Reason for Request: cervical spondylosis with post neck pain Comments Cervical isometrics, decrease post neck pain, modalities Periscapular strengthening * Radiology Services (Routine) - New Request Specialty Diagnoses / Procedures Referred By Leidy lemon Referred To Contact Diagnoses Lumbar facet arthropathy Procedures L SPINE 2-3 VIEWS Marianna Olson MD Phone: tel: fax: Referral ID Status Reason Start Date Expiration Date V isits Requested Visits Authorized [id number] New Request 08/27/2017 1 1 * Radiology Services (Routine) - New Request Specialty Diagnoses / Procedures Referred By Leidy lemon Referred To Contact Diagnoses Neck pain Procedures CERVICAL SPINE 4 OR MORE VIEWS Marianna Olson MD Phone: tel: fax: Referral ID Status Reason Start Date Expiration Date V isits Requested Visits Authorized [id number] New Request 08/27/2017 1 1 Reason for Visit * Reason Comments Back Pain Encounter Details Date Type Department Care Team (Late st Contact Info) Description 08/27/2017 14:00 EDT Office Visit [facility] Spine Program - [address] [place] [address] Marianna Olson MD [address] [facility] [place] [address] Lumbar facet arthropathy (HCC-CMS) (Primary Dx); [...] documented in this encounter Discharge Diagnoses Diagnosis M54.2 Cervicalgia-M54.2[ICD-10-CM] M48.061 Spinal stenosis, lumbar region without neurogenic annmarie-M48.061[ICD-10-CM] documented in this encounter Discharge Disposition Disposition Code Departure Means Destination Auto Discharge documented in this encounter Progress Notes * Marianna Olson MD - 08/27/2017 1400 EDT This office note has been dictated. * Marianna Olson MD - 08/27/2017 0000 EDT [facility]INE [facility] PROGRESS / FOLLOWUP NOTE [...] - Marianna Olson MD cn Dictation ID: [id number] documented in this encounter Plan of Treatment [...] right upper quadrant, likely from prior cholecystectomy. us Marianna Olson MD IMG DIAGNOSTIC IMAGING ORDERAB LES Final Result * CERVICAL SPINE 4 OR MORE VIEWS (08/27/2017 14:49 EDT) Anatomical Region Laterality Modality Other 08/27/2017 14:4 9 EDT 08/28/2017 19:37 EDT Narrative 08/28/2017 19:37 EDT CERVICAL SPINE 4 OR MORE VIEWS ??08/27/2017 2:49 PM Clinical History/Comments: M54.0-Tdjomjaaglx-DTN-10; pain. Comparison: None available. Technique: AP and [...] MORE VIEWS 08/27/2017 2:49 PM Clinical History/Comments: M54.1-Ezgjubibrly-GPX-10; pain. Comparison: None available. Technique: AP and [...] is noted. Marianna Olson MD IMG DIAGNOSTIC IMAGING ORDERAB LES Final Result documented in this encounter Visit Diagnoses Diagnosis Lumbar facet arthropathy- Primary Lumbosacral spondylosis without myelopathy Neck pain Cervicalgia Closed compression fracture of L3 lumbar vertebra with routine healing, subsequent encounter Spondylosis of cervical region without myelopathy or radiculopathy Cervical spondylosis without myelopathy documented in this encounter Historical Medications * This list may reflect changes made after this encounter. montelukast (SINGULAIR) 10 mg tablet Take 10 mg by mouth daily. pantoprazole (PROTONIX) 40 mg tablet Take 40 mg by mouth daily. 10/06/2018 added in this encounter Care Teams Aerosol Line Operator Relationship Specialty Start Date End Date Kaylene Pinedo MD [address] [place] [address] PCP - General 08/07/16 documented as of this encounter
--- OUTSIDE RECORDS SUMMARY | 2024-03-04 21:48 | XMS_ITS | Encounter Summary ---
Author Organization [facility] Address [address] [place] [address] Care Team Providers Care Peoplesoft Business Analyst Name Role Phone Kristen Garcia MD Primary Care Provider [phone] Encounter Details Date Type Department Care Team (Late st Contact Info) Description 05/30/2009 Results Only [facility] Laboratory Services - [facility] ([facility]) [address] [place], [place] [id number] Alvaro Espinal, DO [address] [facility] [address] [place], [place] [id number] Social History Tobacco Use Types Packs/Day Years Used Date Smoking Tobacco: Never Assessed Comments Unknown Sex and Gender Information Value [...] ng unformatted reports. ? Name: ? RUTHANN WOLF ? Accession #: ? [id number] ? : ? 1955 (Age: 54) ??F [...] changes are suggestive of reflux esophagitis. ??(Dr. Cuellar)/[facility] ? Document reviewed and electronically signed by: [...] 0.2 x 0.2 cm, ? submitted in nieshao as (A). ? Received in [employer]'s fixative labelled Tidyman, Ruthann and biopsy antrum ?? are two pink-king, irregular soft tissues, 0.4 x 0.2 x 0.1 cm and 0.4 x 0.3 x 0.1 cm, submitted in toto as (B). ? Received in [facility] fixative labelled Tidyman, Ruthann and biopsy body of ?? stomach are two pink-king, irregular soft tissues, 0.3 x 0.2 x 0.1 cm and 0.4 x 0.3 x 0.1 cm, submitted in toto as (C). ? Received in [facility] fixative labelled Tidyman, Ruthann and biopsy distal ?? esophagus are three pink-king, irregular soft tissues ranging from 0.2 x 0.2 x ?? 0.1 cm to 0.5 x 0.2 x 0.1 cm, submitted in toto as (D). ? Received in [facility] fixative labelled Tidyman, Ruthann and biopsy mid ? esophagus are two pink-king, irregular soft tissues, 0.3 x 0.2 x 0.1 cm and 0.6 x 0.2 x 0.1 cm, submitted in toto as (E). ? [facility] Tidyman, Ruthann and biopsy proximal esophagus are two pink-king, irregular soft tissues, 0.3 x 0.2 x 0.1 cm and 0.5 x 0.2 x 0.1 cm, submitted in toto as (F). (Manpreet Mojica)/[facility] ? End of Report ? [facility] 05/30/2009 05/30/2009 20: 32 EDT us Alvaro Espinal DO PATHOLOGY ORDERABLES Fi nal Result [facility] [address] [place] [address] documented in this encounter Visit Diagnoses Not on filedocumented in this encounter Care Teams Peoplesoft Business Analyst Relationship Specialty Start Date End Date Kristen Garcia MD [facility] [address] [place], [place] [address] PCP - General 09/28/08 08/05/16 documented as of this encounter
--- OUTSIDE RECORDS SUMMARY | 2024-03-04 21:48 | XMS_ITS | Encounter Summary ---
Author Organization [facility] Address [address] [place] [address] Care Team Providers Care Kst Operator Name Role Phone Kaylene Pinedo MD Primary Care Provider [phone] Reason for Visit * Reason Comments Follow-up * Referral (Routine) - Closed Specialty Diagnoses / Procedures Referred By Leidy lemon Referred To Contact Orthopedic Surgery Diagnoses Hemangioma unspecified site Say Ovalles PA-C [address] [place] [phone] Phone: tel: fax: [facility] Spine Program - [place] [address] Phone: tel: fax: Referral ID Status Reason Start Date Expiration Date Visits Re quested Visits Authorized [id number] Closed 1 1 Encounter Details Date Type Department Care Team (Late st Contact Info) Description 08/31/2019 12:30 EDT Office Visit [facility] Spine Program - [place] [address] Anderson Newell MD [address] [place] [address] [place] [address] Hemangioma of bone (Primary Dx) [...] 11/05/2016 10:20 EDT documented in this encounter Progress Notes * Anderson Newell MD - 08/31/2019 1230 EDT This office note has been dictated. Anderson Newell MD documented in this encounter Consult Notes * Anderson Newell MD - 08/31/2019 0000 EDT [facility] SP[facility] CONSULTATION - 08/31/2019 PROBLEM: 1. Incidental C4 hemangioma. 2. Chronic neck and back pain. a. Multilevel degeneration. 3. Fibromyalgia. 4. Chronic fatigue syndrome. 5. Irritable bowel syndrome. 6. Interstitial cystitis. SUBJECTIVE: The patient is a 64-year-old woman who had an episode where she lost her balance, was seen at [facility] where she underwent an evaluation to [...] - Anderson Newell MD rn Dictation ID: [id number] cc: Say Ovalles PA-C, [address] [id number] Marianna Olson MD, [facility] [address] [place] [address] Kaylene Pinedo MD, [address], [address] [address] documented in this encounter Plan of Treatment Not on file documented as of this encounter Visit Diagnoses Diagnosis Hemangioma of bone- Primary Hemangioma of other sites documented in this encounter Care Teams Kst Operator Relationship Specialty Start Date End Date Kaylene Pinedo MD [address] [place] [id number] PCP - General 08/07/16 documented as of this encounter
--- OUTSIDE RECORDS SUMMARY | 2024-03-04 21:48 | XMS_ITS | Encounter Summary ---
Author Organization [facility] Address [address] [place] [address] Care Team Providers Care Roller Gold Leaf Name Role Phone Marianna Garcia MD Primary Care Provider [phone] Encounter Details Date Type Department Care Team (Late st Contact Info) Description 10/14/2005 Results Only [facility] - Maple conversion [address] [place] [address] Katy Ovalles PA-C [address] [place] [id number] Social History Tobacco Use Types Packs/Day Years [...] 68. [facility] Report Status Final [id number] [facility] 10/14/2005 14:3 9 EDT 10/23/2005 14:39 EDT us Katy Ovalles PA-C MICROBIOLOGY - GENERAL O RDERABLES Final Result [facility] [address] [place] [address] * CYTOPATHOLOGY (10/14/2005 0:00 EDT) Pathology Report: CYTOPATHOLOGY REPORT Reports generated via electronic interface contain original data; however they are lacking the format of the original report. Caution should be taken when reading/interpreti ng unformatted reports. Name: ? RUTHANN WOLF ? Accession #: ? [id number] : ? 1955 (Age: 50) ??F ?Collect Date: ? 10/14/2005 Location: ? [facility] ? Receive Date: ? 10/16/2005 Provider: ?KATY CLEMONS Copy to: ? Nadege First ?[facility] ?[address] ?[place], [place] [address] ? Specimen/Source: ?ThinPrep Pap Test, Cervix/Endocervix, processed on [employer] ThinPrep Imaging System, with manual evaluation Last [...] with Carla species. EDUCATIONAL NOTES/RECOMMENDATI ONS ? [facility] recommends following the 2001 Consensus Guidelines for the Management of Women with Cervical Cytological Abnormalities (DAMARI,2002;287:212 0-9). Management algorithms have been distributed by [facility] and are available online at www.ASCCP.org. ? Document reviewed and electronically signed by: ? ERIC ANDERSON MD [facility] ? Report Date: ??10/22/2005 18:37 End of Report [facility] 10/14/2005 10/16/2005 us Katy Ovalles PA-C PATHOLOGY ORDERABLES Fin al Result Performing Organization Address City/State/[facility] Co de Phone Number [facility] [address] [place] [address] documented in this encounter Visit Diagnoses Not on filedocumented in this encounter Care Teams Roller Gold Leaf Relationship Specialty Start Date End Date Marianna Garcia MD [facility] [address] [place] [address] PCP - General 09/28/08 08/05/16 documented as of this encounter
--- OUTSIDE RECORDS SUMMARY | 2024-03-04 21:48 | XMS_ITS | Encounter Summary ---
Author Organization [facility] Address [address] [place] [address] Care Team Providers Care Gas Flow Regulator Name Role Phone Kaylene Pinedo MD Primary Care Provider [phone] Reason for Visit * Reason Onset Date Comments New/Evolving Symptoms 08/18/2019 Encounter Details Date Type Department Care Team (Late st Contact Info) Description 08/18/2019 Telephone [facility] Pulmonology & Critical Care - [address] [address] Nikky Kaplan MD [address] [place] [address], [address] [place] [address] New/Evolving Symptoms Social History Tobacco [...] 11/05/2016 10:20 EDT documented in this encounter Ordered Prescriptions Prescription Sig Dispense Quantity Refills Last Filled Start Date End Date predniSONE (DELTASONE) 10 mg tabletIndications:S mimi persistent asthma with (acute) exacerbation Take 40 [...] felt it did help her sob. Have ry-M-pwwtuak Prednisone taper to [facility] in [facility] [place] [facility] for Ms. Wolf on 08/18/2019. [...] a month ago, Carolina was sent to [facility], because she was experiencing a dizziness [...] referred to a Neurologist and the [facility] for this. With the humidity she is [...] called in for her, please send to [facility]'s in [facility] [place] [facility]. Carolina wanted to remind Dr [...] documented as of this encounter Care Teams Gas Flow Regulator Relationship Specialty Start Date End Date Kaylene Pniedo MD [address] [place] [address] PCP - General 08/07/16 documented as of this encounter
--- OUTSIDE RECORDS SUMMARY | 2024-03-04 21:48 | XMS_ITS | Encounter Summary ---
Author Organization [facility] Address [address] [place] [address] Care Team Providers Care Rail Car Repair Carman Name Role Phone Kaylene Pinedo MD Primary Care Provider [phone] Encounter Details Date Type Department Care Team (Late st Contact Info) Description 11/05/2016 Phlebotomy Only [address] [address] Gear Room Keeper, Outpatient Chronic kidney disease, stage III (moderate) ([facility]) (Primary Dx) Social History Tobacco Use Types [...] EDT Chronic kidney disease, stage III (moderate) ([facility]) documented in this encounter Results * (ABNORMAL) NEPHROLOGY PROFILE (INCLUDES BUN, CREATININE, CALCULATED GFR, ELECTROLYTES, CALCIUM, PHOSPHORUS, ALBUMIN) (11/05/2016 11:33 EDT) Sodium 141 136 - 145 mEq/L 11/05/2016 13:27 [facility] Potassium 4.2 3.5 - 5.0 mEq/L 11/05/2016 13:27 [facility] Chloride 107 96 - 110 mEq/L 11/05/2016 13:27 [facility] CO2 23 22 - 32 mEq/L 11/05/2016 13:27 [facility] BUN 23 10 - 26 mg/dl 11/05/2016 13:27 [facility] Creatinine 1.19(H) 0.52 - 1.04 mg/dl 11/05/2016 13:27 [facility] GFR, Calculated 50(L) >60 ml/min/1.7 3m2 11/05/2016 13:27 [facility] Comment: eGFR calculated using CKD-EPI equation for non Americans. Multiply eGFR by 1.16 for Americans. Calcium 9.7 8.5 - 10.5 mg/dl 11/05/2016 13:27 [facility] Calculated Calcium 9.5 8.5 - 10.5 mg/dl 11/05/2016 13:27 [facility] Phosphorus 3.8 2.5 - 4.5 mg/dl 11/05/2016 13:27 [facility] Albumin 4.3 3.4 - 4.9 g/dl 11/05/2016 13:27 [facility] Blood specimen (specimen) BLOOD SPECIMEN / Unknown 11/05/2016 11:33 EDT 11/05/2016 12:37 EDT us Deangelo Cheek MD PACKAGES & D NA PROBE ORDERABLES Final Result [facility] [address] [place] [address] * HEMAGRAM (11/05/2016 11:33 EDT) WBC 5.56 4.0 - 12.4 K/cmm 11/05/2016 12:58 EDT [facility] RBC 4.40 3.86 - 5.04 M/cmm 11/05/2016 12:58 EDT [facility] Hemoglobin 13.0 11.6 - 15.2 gm/dl 11/05/2016 12:58 EDT [facility] HCT 38.3 34.9 - 44.4 % 11/05/2016 12:58 EDT [facility] MCV 87 81 - 98 fl 11/05/2016 12:58 EDT [facility] MCH 29.5 26.7 - 33.3 pg 11/05/2016 12:58 EDT [facility] MCHC 33.9 32.1 - 35.9 gm/dl 11/05/2016 12:58 EDT [facility] RDW-CV 12.9 <14.7 % 11/05/2016 12:58 EDT [facility] RDW-SD 41.1 <50.4 fl 11/05/2016 12:58 EDT [facility] PLT 205 141 - 377 K/cmm 11/05/2016 12:58 EDT [facility] MPV 12.4 9.5 - 12.7 fl 11/05/2016 12:58 EDT [facility] Blood specimen (specimen) BLOOD SPECIMEN / Unknown 11/05/2016 11:33 EDT 11/05/2016 12:37 EDT us Deangelo Cheek MD HEMATOLOGY & PF4 ORDERABLES Final Result [facility] [address] [place] [address] documented in this encounter Visit Diagnoses Diagnosis Chronic kidney disease, stage III (moderate) ([facility])- Primary Chronic kidney disease, Stage III (moderate) documented in this encounter Care Teams Rail Car Repair Carman Relationship Specialty Start Date End Date Kaylene Pinedo MD [address] [place] [address] PCP - General 08/07/16 documented as of this encounter
--- OUTSIDE RECORDS SUMMARY | 2024-03-04 21:48 | XMS_ITS | Encounter Summary ---
Author Organization [facility] Address [address] [place] [address] Care Team Providers Care Endocrinology Physician Name Role Phone Kaylene Pinedo MD Primary Care Provider [phone] Reason for Visit * Reason Comments Follow-up Encounter Details Date Type Department Care Team ([facility] st Contact Info) Description 11/06/2017 11:30 EDT Office Visit [facility] Nephrology - [address] [address] Deangelo Cheek MD Nurse, Renal, Chronic kidney disease, stage III (moderate) ([facility]) (Primary Dx) Social History Tobacco [...] documented in this encounter Progress Notes * Agueda Chavez, [...] Diagnosis Chronic kidney disease, stage III (moderate) ([facility])- Primary Chronic kidney disease, Stage III (moderate) documented in this encounter Historical Medications * This list may reflect changes made after this encounter. KRILL OIL ORAL Take by mouth. 2018 tiotropium (SPIRIVA) 18 mcg inhalation capsule Inhale 18 mcg as directed daily. 10/06/2018 added in this encounter Care Teams Endocrinology Physician Relationship Specialty Start Date End Date Kaylene Pinedo MD [address] [place] [address] PCP - General 08/07/16 documented as of this encounter
--- OUTSIDE RECORDS SUMMARY | 2024-03-04 21:48 | XMS_ITS | Encounter Summary ---
Author Organization [facility] Address [address] [place] [address] Care Team Providers Care Department Store General Manager Name Role Phone Kaylene Pinedo MD Primary Care Provider [phone] Reason for Visit * Reason Onset Date Comments Patient Outreach 10/18/2019 Returning Call 10/19/2019 Encounter Details Date Type Department Care Team (Late st Contact Info) Description 10/18/2019 Telephone [facility] Pulmonology & Critical Care - [address] [phone] Nikky Kaplan MD [address] [place] [address], [address] [place] [address] Patient Outreach; Returning Call Social [...] 11/05/2016 10:20 EDT documented in this encounter Miscellaneous Notes * Telephone Encounter - Emili Garcia - 10/19/2019 1325 EDT Patient called back. She wants covid order canceled, and all appointments on 10/27/19 canceled due topandemic. * Telephone Encounter - Ousmane Osborne, RN - 10/19/2019 1041 EDT Patient had FUR and PFT scheduled for 10/27/19. Warp Tier returned patient's call to discuss her questions. [...] on filedocumented in this encounter Care Teams Department Store General Manager Relationship Specialty Start Date End Date Kaylene Pinedo MD [address] [place] [address] PCP - General 08/07/16 documented as of this encounter
--- OUTSIDE RECORDS SUMMARY | 2024-03-04 21:48 | XMS_ITS | Encounter Summary ---
Author Organization [facility] Address [address] [place] [address] Care Team Providers Care Transit Police Officer Name Role Phone Unavailable Primary Care Provider Unavailabl e Encounter Details Date Type Department Care Team (Late st Contact Info) Description 09/22/2008 Orders Only [facility] Laboratory Services - [facility] ([facility]) [address] [place], [place] [address] Kristen Garcia MD [facility] [address] [place], [place] [address] Social History Tobacco Use Types Packs/Day Years [...] [facility] Report Status Final 10/05/2008 [facility] 09/22/2008 15:2 0 EDT 09/29/2008 11:16 EDT us Kristen Garcia MD MICROBIOLOGY - GENERAL ORDERABLE S Final Result [facility] [address] [place] [address] * CYTOPATHOLOGY (09/22/2008 0:00 EDT) Pathology Report: CYTOPATHOLOGY REPORT ? Reports generated via electronic interface contain original data; ? however they are lacking the format of the original report. ? Caution should be taken when reading/interpreti ng unformatted reports. ? Name: ? RUTHANN NICOLE ? Accession #: ? [id number] ? : ? 1955 (Age: 53) ??F [...] ? (LSIL). ? EDUCATIONAL NOTES/RECOMMENDATI ONS ? [facility] recommends following the 2006 Consensus Guidelines for the Management of Women with Abnormal Cervical Cancer Screening Tests (JLGTD, ? 2007;11(4:201-222 ). ??Consensus guidelines are available online at ? www.ASCCP.org. ? Document reviewed and electronically signed by: ? Ruthann George MD ? Report Date: ??09/28/2008 08:18 ? End of Report ? [facility] 09/22/2008 09/23/2008 us Kristen Garcia MD PATHOLOGY ORDERABLES Final Resul t [facility] [address] [place] [address] documented in this encounter Visit Diagnoses Not on filedocumented in this encounter
--- OUTSIDE RECORDS SUMMARY | 2024-03-04 21:48 | XMS_ITS | Encounter Summary ---
Author Organization [facility] Address [address] [place] [address] Care Team Providers Care Exchange Administrator Name Role Phone Kristen Skelton MD Primary Care Provider [phone] Encounter Details Date Type Department Care Team (Late st Contact Info) Description 06/15/2007 Results Only [facility] - Maple conversion [address] [place] [address] Kristen Skelton MD [facility] [address] [place], [place] [address] Social History Tobacco Use Types Packs/Day Years [...] ? RUTHANN WOLF ? Accession #: ? [id number] : ? 1955 (Age: 52) ??F ?Collect Date: ? 06/15/2007 Location: ? [facility] ? Receive Date: ? 06/16/2007 Provider: ?KRISTEN SKELTON MD Copy to: ? Nadege First ?[facility] ?[address] ?[place], [place] [address] ? Specimen/Source: ?ThinPrep Pap Test, Cervix/Endocervix, processed on [employer] ThinPrep Imaging System, with manual evaluation Last [...] and electronically signed by: ? ERIC ANDERSON [facility] ? Report Date: ??06/22/2007 15:37 End of Report [facility] 06/15/2007 06/16/2007 us Kristen Skelton MD PATHOLOGY ORDERABLES Final Resul t [facility] [address] [place] [address] documented in this encounter Visit Diagnoses Not on filedocumented in this encounter Care Teams Exchange Administrator Relationship Specialty Start Date End Date Kristen Skelton MD [facility] [address] [place] [address] PCP - General 09/28/08 08/05/16 documented as of this encounter
--- OUTSIDE RECORDS SUMMARY | 2024-03-04 21:48 | XMS_ITS | Encounter Summary ---
Author Organization [facility] Address [address] [place] [address] Care Team Providers Care Digital Media Designer Name Role Phone Kaylene Pinedo MD Primary Care Provider [phone] Reason for Visit * Reason Onset Date Comments Appointment Related 01/18/2019 Encounter Details Date Type Department Care Team (Late st Contact Info) Description 01/18/2019 Telephone [facility] Pulmonology & Critical Care - [address] [address] Nikky Kaplan MD [address] [place] [address], [address] [place] [address] Appointment Related Social History Tobacco [...] on filedocumented in this encounter Care Teams Digital Media Designer Relationship Specialty Start Date End Date Kaylene Pinedo MD [address] [place] [address] PCP - General 08/07/16 documented as of this encounter
--- OUTSIDE RECORDS SUMMARY | 2024-03-04 21:48 | XMS_ITS | Encounter Summary ---
Author Organization [facility] Address [address] [place] [address] Care Team Providers Care Sanitation Worker Cleaning Machinery Name Role Phone Unavailable Primary Care Provider Unavailabl e Encounter Details Date Type Department Care Team (Late st Contact Info) Description 10/18/2007 Before PRISM Converted Visit (Maple) [facility] - Maple conversion [address] [place] [address] Alvaro Espinal, DO [address] [facility] [address] [place] [address] Social History Tobacco Use Types Packs/Day Years [...] ? RUTHANN NICOLE ? Accession #: ? [id number] ? : ? 1955 (Age: 52) ??F [...] in two other areas ??in the mid-appendix. ??Airplane Cabin Attendant sections are ? submitted as (A1) and (A2), including the inked resection margin adjacent to the staple line, en face. ??(MORGAN Kirby/ari ? End of Report ? [facility] 10/18/2007 10/20/2007 16: 56 EDT us Alvaro Espinal DO PATHOLOGY ORDERABLES Fi nal Result [facility] [address] [place] [address] documented in this encounter Visit Diagnoses Not on filedocumented in this encounter
--- OUTSIDE RECORDS SUMMARY | 2024-03-04 21:48 | XMS_ITS | Encounter Summary ---
Author Organization [facility] Address [address] [place] [address] Care Team Providers Care Pershing Missile Crewmember Name Role Phone Kaylene Pinedo MD Primary Care Provider [phone] Encounter Details Date Type Department Care Team ([facility] st Contact Info) Description 08/05/2020 Lab Requisition [facility] Pathology & Laboratory Medicine - [address] [address] Social History Tobacco Use Types Packs/Day Years [...] on filedocumented in this encounter Care Teams Pershing Missile Crewmember Relationship Specialty Start Date End Date Kaylene Pinedo MD [address] [place] [address] PCP - General 08/07/16 documented as of this encounter
--- OUTSIDE RECORDS SUMMARY | 2024-03-04 21:48 | XMS_ITS | Encounter Summary ---
Author Organization [facility] Address [address] [place] [address] Care Team Providers Care Car Stereo Installer Name Role Phone Kristen Skelton MD Primary Care Provider [phone] Encounter Details Date Type Department Care Team (Late st Contact Info) Description 03/31/2006 Results Only [facility] - Maple conversion [address] [place] [address] Kristen Skelton MD [facility] [address] [place], [place] [address] Social History Tobacco Use Types Packs/Day Years [...] ? RUTHANN WOLF ? Accession #: ? [id number] : ? 1955 (Age: 51) ??F ?Collect Date: ? 03/31/2006 Location: ? [facility] ? Receive Date: ? 04/02/2006 Provider: ?KRISTEN SKELTON MD Copy to: ? Specimen/Source: ?ThinPrep Pap Test, Source Not Provided, processed on [employer] ThinPrep Imaging System, with manual evaluation Last [...] of Report [facility] 03/31/2006 04/02/2006 us Kristen Skelton MD PATHOLOGY ORDERABLES Final Resul t [facility] [address] [place] [address] documented in this encounter Visit Diagnoses Not on filedocumented in this encounter Care Teams Car Stereo Installer Relationship Specialty Start Date End Date Kristen Skelton MD [facility] [address] [place], [place] [address] PCP - General 09/28/08 08/05/16 documented as of this encounter
--- OUTSIDE RECORDS SUMMARY | 2024-03-04 21:48 | XMS_ITS | Encounter Summary ---
Author Organization [facility] Address [address] [place] [address] Care Team Providers Care Research Management Associate Name Role Phone Kaylene Pinedo MD Primary Care Provider [phone] Reason for Visit * Reason Onset Date Comments COVID-19 10/16/2019 Encounter Details Date Type Department Care Team (Late st Contact Info) Description 10/16/2019 Telephone [facility] [address] [place] [address] Nikky Kaplan MD [address] [facility], [address] [place] [address] COVID-19 Social History Tobacco Use [...] schedule COVID-19 testing. Requested a call back @[phone]. This is our 2nd attempt at contacting [...] to schedule. Will need order sent to [facility] in [facility]. * Telephone Encounter - Janie Simpson - 10/16/2019 1016 EDT Called patient to schedule COVID-19 testing. Requested a call back [phone]. This is our 1st attempt at contacting patient documented in this encounter Plan of Treatment Not on file documented as of this encounter Visit Diagnoses Not on filedocumented in this encounter Care Teams Research Management Associate Relationship Specialty Start Date End Date Kaylene Pinedo MD [address] [place] [address] PCP - General 08/07/16 documented as of this encounter
--- OUTSIDE RECORDS SUMMARY | 2024-03-04 21:48 | XMS_ITS | Encounter Summary ---
Author Organization [facility] Address [address] [place] [address] Care Team Providers Care Parking Enforcement Officer Name Role Phone Marianna Garcia MD Primary Care Provider [phone] Encounter Details Date Type Department Care Team (Late st Contact Info) Description 03/22/2003 Results Only [facility] - Maple conversion [address] [place] [address] Lydia Aguilar, [facility] [address] [place], [place] [address] Social History Tobacco Use Types Packs/Day Years [...] ? RUTHANN WOLF ? Accession #: ? [id number] : ? 1955 (Age: 48) ??F ?Collect Date: ? 03/22/2003 Location: ? [facility] ? Receive Date: ? 03/24/2003 Provider: ?LYDIA AGUILAR WIND OPERATIONS MANAGER Copy to: ? Specimen/Source: ?ThinPrep Pap Test, Cervix/Endocervix Last Menstrual Period: ? 1 week ago ? SPECIMEN ADEQUACY ? Satisfactory for Evaluation - transformation zone component present GENERAL CATEGORIZATION ? Negative for Intraepithelial Lesion or Malignancy ? Document reviewed and electronically signed by: ? Marcela Mitchell [facility](ASCP) ? Report Date: ??03/28/2003 08:49 End of Report [facility] 03/22/2003 03/24/2003 us Lydia Aguilar WIND OPERATIONS MANAGER PATHOLOGY ORDERABLES Final Resu lt [facility] [address] [place] [address] documented in this encounter Visit Diagnoses Not on filedocumented in this encounter Care Teams Parking Enforcement Officer Relationship Specialty Start Date End Date Marianna Garcia MD [facility] [address] [place] [address] PCP - General 09/28/08 08/05/16 documented as of this encounter
--- OUTSIDE RECORDS SUMMARY | 2024-03-04 21:48 | XMS_ITS | Encounter Summary ---
Author Organization [facility] Address [address] [place] [address] Care Team Providers Care Acoustic Intelligence Specialist Name Role Phone Kaylene Pinedo MD Primary Care Provider [phone] Encounter Details Date Type Department Care Team (Late st Contact Info) Description 09/02/2019 Lab Requisition [facility] Pathology & Laboratory Medicine - [address] [address] Outr Resulting Lab, Provider Social History Tobacco [...] Insulin 7.1 <29.0 uIU/mL 09/09/2019 9:[address] [facility] Comment: Displayed Reference Range applies to fasting specimens only. Blood VENOUS BLOOD / Unknown 09/01/2019 8:10 EDT 09/02/2019 17:13 EDT us Provider Outr Resulting Lab CHEMISTRY & BLOOD GA S ORDERABLES Final Result Performing Organization Address City/State/[facility] Co de Phone Number [facility] [address] [place] [address] documented in this encounter Visit Diagnoses Not on filedocumented in this encounter Care Teams Acoustic Intelligence Specialist Relationship Specialty Start Date End Date Kaylene Pinedo MD [address] [place] [address] PCP - General 08/07/16 documented as of this encounter
--- OUTSIDE RECORDS SUMMARY | 2024-03-04 21:48 | XMS_ITS | Encounter Summary ---
Author Organization [facility] Address [address] [place] [address] Care Team Providers Care Business Assistant Name Role Phone Marianna Garcia MD Primary Care Provider [phone] Encounter Details Date Type Department Care Team (Late st Contact Info) Description 05/15/2004 Results Only [facility] - Maple conversion [address] [place] [address] Lydia Aguilar, [facility] [address] [place], [place] [address] Social History Tobacco Use Types Packs/Day Years [...] ? RUTHANN WOLF ? Accession #: ? [id number] : ? 1955 (Age: 49) ??F ?Collect Date: ? 05/15/2004 Location: ? [facility] ? Receive Date: ? 05/17/2004 Provider: ?LYDIA AGUILAR APARTMENT COORDINATOR Copy to: ? Specimen/Source: ?ThinPrep Pap Test, [...] Report [facility] 05/15/2004 05/17/2004 Lydia Aguilar APARTMENT COORDINATOR PATHOLOGY ORDERABLES Final Resu lt [facility] [address] [place] [address] documented in this encounter Visit Diagnoses Not on filedocumented in this encounter Care Teams Business Assistant Relationship Specialty Start Date End Date Marianna Garcia MD [facility] [address] [place] [address] PCP - General 09/28/08 08/05/16 documented as of this encounter
--- OUTSIDE RECORDS SUMMARY | 2024-03-04 21:48 | XMS_ITS | Encounter Summary ---
Author Organization [facility] Address [address] [place] [address] Care Team Providers Care Attraction Worker Name Role Phone Kaylene Pinedo MD Primary Care Provider [phone] Encounter Details Date Type Department Care Team (Late st Contact Info) Description 10/06/2018 Orders Only [facility] Pulmonology & Critical Care - [address] [address] Nikky Kaplan MD [address] [place] [address], [address] [place] [address] Asthma, unspecified asthma severity, unspecified [...] Primary documented in this encounter Care Teams Attraction Worker Relationship Specialty Start Date End Date Kaylene Pinedo MD [address] [place] [address] PCP - General 08/07/16 documented as of this encounter
--- OUTSIDE RECORDS SUMMARY | 2024-03-04 21:48 | XMS_ITS | Encounter Summary ---
Author Organization [facility] Address [address] [place] [address] Care Team Providers Care Electrical Controls Technician Name Role Phone Kaylene Pinedo MD Primary Care Provider [phone] Reason for Referral * (Routine) - Authorization Not Required Specialty Diagnoses / Procedures Referred By [facility] t Referred To Contact Diagnoses Severe persistent asthma without complication Procedures PULMONARY FUNCTION TESTING Nikky Kaplan MD Phone: tel: fax: Referral ID Status Reason Start Date Expiration Date Visits Requested Visits Authorized [id number] Authorization Not Required 04/28/2019 1 1 Reason for Visit * Reason Comments Asthma Encounter Details Date Type Department Care Team (Late st Contact Info) Description 04/28/2019 10:45 EDT Office Visit [facility] Pulmonology & Critical Care - [address] [phone] Nikky Kaplan MD [address] [place] [address], [address] [place] [address] Severe persistent asthma without complication [...] Refills Last Filled Start Date End Date fluticasone propionate (FLOVENT HFA) 44 mcg/actuation inhaler Inhale 1 Puff as directed 2 times daily. 1 Inhaler 11 04/28/2019 0 documented in this encounter Progress Notes * Nikky Kaplan MD - 04/28/2019 1045 EDT DIVISION OF PULMONOLOGY? PROGRESS/FOLLOWUP NOTE -04/28/2019 ?? Kaylene uLismatias [address] [facility] [address] Pulmonary History Severe persistent asthma - extensive [...] a rescue MDI in between. Her local junior linux administrator Dr. Christianson has unfortunately left. Thus she [...] alsoplace a referral for pulmonary rehab at [facility], that she can start when her foot is healed. I will plan to see her back in about 3 months, we will also obtain pulmonary function studies at that point. Nikky Kaplan MD Pulmonary Attending ? cc: ?Kaylene Pinedo Please note: this documentation was created with the use of voice recognition software, and may contain rare operator command support systems errors. documented in this encounter Plan of [...] may reflect changes made after this encounter. NONFORMULARY sproutbiotic CALCIUM ORAL Take by mouth. [...] unsure added in this encounter Care Teams Electrical Controls Technician Relationship Specialty Start Date End Date Kaylene Pinedo MD [address] [place] [address] PCP - General 08/07/16 documented as of this encounter
--- OUTSIDE RECORDS SUMMARY | 2024-03-04 21:48 | XMS_ITS | Encounter Summary ---
Author Organization [facility] Address [address] [place] [address] Care Team Providers Care Truck Loader And Unloader Name Role Phone Kaylene Pinedo MD Primary Care Provider [phone] Encounter Details Date Type Department Care Team (Late st Contact Info) Description 07/28/2019 Orders Only [facility] Pulmonology & Critical Care - [address] [address] Rosaura Turcios RN Severe persistent asthma without [...] documented in this encounter Progress Notes * Rosaura Turcios RN - 07/28/2019 1716 EDT co documented in this encounter Plan of Treatment Not on file documented as of this encounter Visit Diagnoses Diagnosis Severe persistent asthma without complication- Primary Asthma, unspecified asthma severity, unspecified whether complicated, unspecified whether persistent documented in this encounter Care Teams Truck Loader And Unloader Relationship Specialty Start Date End Date Kaylene Pinedo MD [address] [place] [address] PCP - General 08/07/16 documented as of this encounter
--- OUTSIDE RECORDS SUMMARY | 2024-03-04 21:48 | XMS_ITS | Encounter Summary ---
Author Organization [facility] Address [address] [place] [address] Care Team Providers Care Gear Grinding Machine Operator Name Role Phone Marianna Garcia MD Primary Care Provider [phone] Encounter Details Date Type Department Care Team (Late st Contact Info) Description 07/24/2006 Results Only [facility] - Maple conversion [address] [place] [address] Wanda Lujan MD [address] [place] [address] [place] [address] Social History Tobacco Use Types Packs/Day Years [...] ? RUTHANN RUFFIN ? Accession #: ? [id number] ? : ? 1955 (Age: 51) ??F [...] No hyperplasia identified. ??See comment. Comment: ? Boxing Trainer sections have been reviewed by Dr. Niya Lion in consultation. (Dr. Reece)/[facility] Document reviewed and electronically signed by: DELPHINE [...] of red-brown predominantly mucoid hemorrhagic tissue fragments. Boxing Trainer sections are submitted as (A1) and (A2) following filtration. /gaurav End of Report VITAL[facility] BURROWS 07/24/2006 07/24/2006 1:0 7 EDT us Wanda Lujan MD PATHOLOGY ORDERABLES Final Resu lt [facility] [address] [place] [address] documented in this encounter Visit Diagnoses Not on filedocumented in this encounter Care Teams Gear Grinding Machine Operator Relationship Specialty Start Date End Date Marianna Garcia MD [facility] [address] [place], [place] [address] PCP - General 09/28/08 08/05/16 documented as of this encounter
--- OUTSIDE RECORDS SUMMARY | 2024-03-04 21:48 | XMS_ITS | Encounter Summary ---
Author Organization [facility] Address [address] [place] [address] Care Team Providers Care Moss Picker Name Role Phone Kaylene Pinedo MD Primary Care Provider [phone] Reason for Visit * Reason Comments Telemedicine Video Visit Asthma Encounter Details Date Type Department Care Team (Late st Contact Info) Description 07/28/2019 10:45 EDT Telemedicine [facility] Pulmonology & Critical Care - [address] [address] Nikky Kaplan MD [address] [facility], [address] [place] [address] Severe persistent asthma without complication [...] Date End Date predniSONE (DELTASONE) 10 mg tablet Take 4 Tabs by mouth daily for 2 days, THEN 3 Tabs daily for 2 days, THEN 2 Tabs daily for 2 days, THEN 1 Tab daily for 2 days, THEN 0.5 Tabs daily for 2 days. 21 Tab 07/28/2019 0 beclomethasone (QVAR) 40 mcg/actuation inhaler Inhale 1 Puff as directed 2 times daily. 1 Inhaler 11 07/28/2019 0 documented in this encounter Progress Notes [...] PULMONOLOGY? PROGRESS/FOLLOWUP NOTE -07/28/2019 ?? Kaylene Pinedo [address] [place] [address] The concept of ???Telemedicine?? has been described [...] that has well. Has been on it intermediate in the past as well, for as long as 3 months and had a lot of stomach upset. Does ok with shorter bursts, but still can't sleep more than 3 hours with it even with trazodone while taking it. Admitted to [facility] several weeks ago for concern of stroke; [...] voice recognition software, and may contain rare manager testing errors. documented in this encounter Plan of Treatment Not on file documented as of this encounter Visit Diagnoses Diagnosis Severe persistent asthma without complication- Primary Allergic rhinitis due to pollen, unspecified seasonality documented in this encounter Historical Medications * This list may reflect changes made after this encounter. acetaminophen (TYLENOL) 500 mg tablet Take 500 mg by mouth every 6 hours as needed for Pain. added in this encounter Care Teams Moss Picker Relationship Specialty Start Date End Date Kaylene Pinedo MD [address] [place] [address] PCP - General 08/07/16 documented as of this encounter
--- OUTSIDE RECORDS SUMMARY | 2024-03-04 21:48 | XMS_ITS | Encounter Summary ---
Author Organization [facility] Address [address] [place] [address] Care Team Providers Care Machine Stuffer Name Role Phone Marianna Garcia MD Primary Care Provider [phone] Inge Rojas MD Primary Care Provide Kaylene Mcfarland MD Primary Care Provider [phone] Reason for Referral * Radiology Services (Routine) - Closed Specialty Diagnoses / Procedures Referred By Leidy lemon Referred To Contact Diagnoses Low back pain, unspecified back pain laterality, unspecified chronicity, with sciatica presence unspecified Procedures L SPINE 2-3 VIEWS Marianna Olson MD Phone: tel: fax: Referral ID Status Reason Start Date Expiration Date Visits Re quested Visits Authorized [id number] Closed 07/29/2016 1 1 Reason for Visit * Reason Onset Date Comments Appointment Related 07/29/2016 Encounter Details Date Type Department Care Team (Late st Contact Info) Description 07/29/2016 Orders Only [facility] Spine Program - [address] [place] [address] Marianna Olson MD [address] [place] [address] [place] [address] Low back pain, unspecified back pain [...] and lumbosacral facets consistent with degenerative change. us Marianna Olson MD IMG DIAGNOSTIC IMAGING ORDERAB LES Final Result documented in this encounter Visit Diagnoses Diagnosis Low back pain, unspecified back pain laterality, unspecified chronicity, with sciatica presence unspecified- Primary documented in this encounter Care Teams Machine Stuffer Relationship Specialty Start Date End Date Marianna Garcia MD [facility] [address] [place] [address] PCP - General 09/28/08 08/05/16 Inge Rojas MD [facility] [address] [place] [address] PCP - General 08/06/16 08/06/16 Kaylene Pinedo MD [address] [place] [address] PCP - General 08/07/16 documented as of this encounter
--- OUTSIDE RECORDS SUMMARY | 2024-03-04 21:48 | XMS_ITS | Encounter Summary ---
Author Organization [facility] Address [address] [place] [address] Care Team Providers Care Computer Applications Instructor Name Role Phone Kaylene Pinedo MD Primary Care Provider [phone] Reason for Visit * (Routine) - Receiving Office to Obtain Authorization Specialty Diagnoses / Procedures Referred By Leidy lemon Referred To Contact Procedures MR OUTSIDE IMAGES NEURO Inge Rojas MD Referral ID Status Reason Start Date Expiration Date Visits Requested Visits Authorized [id number] Receiving Office to Obtain Authorization 08/12/2019 1 1 Encounter Details Date Type Department Care Team (Latest Contact Info) Description 07/13/2019 - 07/13/2019 23:59 EDT Hospital Encounter [facility] Radiology - Main [place] [address] [place] [address] Discharge Disposition: Home or Self Care Social [...] 11/05/2016 10:20 EDT documented in this encounter Medications at Time of Discharge CALCIUM ORAL Take by mouth. cyanocobalamin, vitamin [...] daily. 1 Inhaler 11 04/28/2019 0 documented as of this encounter Discharge Disposition Disposition Code Departure Means Destination Home or Self Care documented in this encounter Plan of Treatment Not on file documented as of this encounter Procedures Procedure Name Priority Date/Time Associated Diagnosis Comments MR OUTSIDE IMAGES NEURO Routine 08/12/2019 6:47 EDT documented in this encounter Results * MR OUTSIDE IMAGES NEURO (08/12/2019 6:47 EDT) Narrative ELISHA Azevedo 08/12/2019 6:47 EDT This is a non-reportable exam. us Inge Peterson MD IMG OTHER IMAGING ORD ERABLES Final Result LADIISABELLE documented in this encounter Visit Diagnoses Not on filedocumented in this encounter Care Teams Computer Applications Instructor Relationship Specialty Start Date End Date Kaylene Pinedo MD [address] [place] [address] PCP - General 08/07/16 documented as of this encounter
--- OUTSIDE RECORDS SUMMARY | 2024-03-04 21:48 | XMS_ITS | Encounter Summary ---
Author Organization [facility] Address [address] [place] [address] Care Team Providers Care Solderer Production Line Name Role Phone Marianna Garcia MD Primary Care Provider [phone] Encounter Details Date Type Department Care Team (Late st Contact Info) Description 02/13/2000 Results Only [facility] - Maple conversion [address] [place] [address] Sylvia Molina MD [address] [place] [phone] Social History Tobacco Use Types Packs/Day [...] ? RUTHANN WOLF ? Accession #: ? [id number] : ? 1955 (Age: 45) ??F ?Collect Date: ? 02/13/2000 Location: ? [facility] ? Receive Date: ? 02/15/2000 Provider: ?SYLVIA MOLINA CERTIFIED DIABETES EDUCATOR Copy to: ? Specimen/Source: ?Conventional Pap Test, Cervix/Endocervix Last Menstrual Period: ? 01/25/00 ? SPECIMEN ADEQUACY ? Satisfactory for evaluation. GENERAL CATEGORIZATION ? Within Normal Limits ? Document reviewed and electronically signed by: ? MINO Greer(ASCP) ? Report Date: ??02/15/2000 13:17 End of Report [facility] 02/13/2000 02/15/2000 us Sylvia Molina MD PATHOLOGY ORDERABLES Final Re sult [facility] [address] [place] [address] documented in this encounter Visit Diagnoses Not on filedocumented in this encounter Care Teams Solderer Production Line Relationship Specialty Start Date End Date Marianna Garcia MD [facility] [address] [place] [address] PCP - General 09/28/08 08/05/16 documented as of this encounter
--- OUTSIDE RECORDS SUMMARY | 2024-03-04 21:48 | XMS_ITS | Encounter Summary ---
Author Organization [facility] Address [address] [place] [address] Care Team Providers Care Starbucks Clerk Name Role Phone Marianna Garcia MD Primary Care Provider [phone] Encounter Details Date Type Department Care Team (Late st Contact Info) Description 03/26/2002 Results Only [facility] - Maple conversion [address] [place] [address] Mell Soto, CELLAR PUMPER [address] [phone] Social History Tobacco Use Types Packs/Day Years [...] ? RUTHANN WOLF ? Accession #: ? [id number] : ? 1955 (Age: 47) ??F ?Collect Date: ? 03/26/2002 Location: ? [facility] ? Receive Date: ? 03/30/2002 Provider: ?MELL SOTO CELLAR PUMPER Copy to: ? Specimen/Source: ?ThinPrep Pap Test, [...] End of Report [facility] BURROWS 03/26/2002 03/30/2002 us Mell Soto NP PATHOLOGY ORDERABLES Final R esult [facility] [address] [place] [address] documented in this encounter Visit Diagnoses Not on filedocumented in this encounter Care Teams Starbucks Clerk Relationship Specialty Start Date End Date Marianna Garcia MD [facility] [address] [place], [place] [address] PCP - General 09/28/08 08/05/16 documented as of this encounter
--- OUTSIDE RECORDS SUMMARY | 2024-03-04 21:48 | XMS_ITS | Encounter Summary ---
Author Organization [facility] Address [address] [place] [address] Care Team Providers Care Tool Honing Machine Set Up Operator Name Role Phone Kaylene Pinedo MD Primary Care Provider [phone] Reason for Visit * Reason Comments New Patient Visit * Consult (Routine) - Closed Specialty Diagnoses / Procedures Referred By Leidy lemon Referred To Contact Pulmonary Disease Diagnoses Asthma exacerbation, non-allergic, severe persistent Say Ovalles PA-C [address] [place] [address] Phone: tel: fax: [facility] [address] [address] Phone: tel: fax: Referral ID Status Reason Start Date Expiration Date Visits Re quested Visits Authorized [id number] Closed 1 1 Encounter Details Date Type Department Care Team (Late st Contact Info) Description 10/06/2018 14:30 EDT Office Visit [facility] Pulmonology & Critical [address] [id number] Nikky Kaplan MD [address] [facility], [facility] [address] [place] [address] Severe persistent asthma without complication [...] 11/05/2016 10:20 EDT documented in this encounter Patient Instructions * [...] PULMONOLOGY? OFFICE CONSULTATION -10/06/2018 ?? Kaylene Pinedo [address] [place] [address] The patient was seen in consultation at [...] as well. She has been followed at [facility]. She had a prolonged exacerbation at [...] Primary reason for referral is that her pathology supervisor recommended for syndrome for her poorly controlled [...] Allergies Allergen Reactions ??? Chocolate Flavor ??? [place] ??? Dairy [Cheese] ??? Erythromycin Nausea Only [...] Products ??? Soy ??? Spiriva Respimat [Tiotropium [place]] ??? Steroid [Corticosteroids (Glucocorticoids)] roid rage ??? [...] voice recognition software, and may contain rare tanker serviceman errors. documented in this encounter Plan of Treatment Not on file documented as of this encounter Procedures Procedure Name Priority Date/Time Associated Diagnosis Comments PULMONARY FUNCTION REPORT - SCANNED 10/06/2018 18:54 EDT documented in this encounter Results * PULMONARY FUNCTION REPORT - SCANNED (10/06/2018 18:54 EDT) 10/06/2018 18:5 4 EDT us Scan 2 Tenant Selector PROCEDURE/MINOR SURGICAL OR DERABLES Final Result documented in this encounter Visit [...] 1 Tab by mouth daily. 10/06/2018 omega 5-hid-gfy-fish oil 120-180-600 mg capsule Take by mouth. [...] may reflect changes made after this encounter. lansoprazole (PREVACID) 30 mg capsule Take 30 mg by mouth daily. added in this encounter Care Teams Tool Honing Machine Set Up Operator Relationship Specialty Start Date End Date Kaylene Pinedo MD [address] [place] [address] PCP - General 08/07/16 documented as of this encounter
--- OUTSIDE RECORDS SUMMARY | 2024-03-04 21:48 | XMS_ITS | Encounter Summary ---
Author Organization [facility] Address [address] [place] [address] Care Team Providers Care Hydrotechnical Specialist Name Role Phone Kristen Skelton MD Primary Care Provider [phone] Encounter Details Date Type Department Care Team (Late st Contact Info) Description 03/12/2007 Results Only [facility] - Maple conversion [address] [place] [address] Kristen Skelton MD [facility] [address] [place], [place] [address] Social History Tobacco Use Types Packs/Day Years [...] ? RUTHANN WOLF ? Accession #: ? [id number] : ? 1955 (Age: 52) ??F ?Collect [...] enhancement technique. ? End of Report [facility] 03/12/2007 03/13/2007 11: 17 EST us Kristen Skelton MD PATHOLOGY ORDERABLES Final Resul t [facility] [address] [place] [address] documented in this encounter Visit Diagnoses Not on filedocumented in this encounter Care Teams Hydrotechnical Specialist Relationship Specialty Start Date End Date Kristen Skelton MD [facility] [address] [place] [address] PCP - General 09/28/08 08/05/16 documented as of this encounter
--- OUTSIDE RECORDS SUMMARY | 2024-03-04 21:48 | XMS_ITS | Encounter Summary ---
Author Organization [facility] Address [address] [place] [address] Care Team Providers Care Doctor Of Dental Medicine Name Role Phone Kristen Garcia MD Primary Care Provider [phone] Encounter Details Date Type Department Care Team (Late st Contact Info) Description 03/09/2009 Orders Only [facility] Laboratory Services - [facility] ([facility]) [address] [place], [place] [id number] Mandy Coreas MD [address] [place] [address] Social History Tobacco Use Types [...] ? RUTHANN WOLF ? Accession #: ? [id number] ? : ? 1955 (Age: 54) ??F [...] reviewed and electronically signed by: ? DELPHINE Cody BUTNOR MD ? Report ??Date: 03/13/2009 15:28 [...] thickness of 0.6 cm. ??The myometrium is pink-king and trabeculated with an average thickness of [...] king-yellow, ?? lobulated surface. ??Sectioning reveals a haung-king cut surface with two ? uniloculated cysts, [...] nodule that a king-white whorled cut surface. ??Directional Drill Operator sections are submitted as follows: ? BLOCK BARRON ? A1,A2 ?Cervix ? A3 ?Anterior full thickness endomyometrium ? A4,A5 ?Posterior full thickness endomyometrium bisected ? A6,A7 ?Directional Drill Operator intramural whorled nodules ? A8 ?Left ovary ? A9 ?Left fallopian tube and paratubal cysts ? A10 ?Right ovary ? A11 ?Right fallopian tube ? A12 ?Separate whorled nodule ? (L. Mojica)/cjh ? End of Report ? [facility] 03/09/2009 03/10/2009 7:5 4 EST us Mandy Coreas MD PATHOLOGY ORDERABLES Final Res ult [facility] [address] [place] [address] documented in this encounter Visit Diagnoses Not on filedocumented in this encounter Care Teams Doctor Of Dental Medicine Relationship Specialty Start Date End Date Kristen Garcia MD [facility] [address] [place] [address] PCP - General 09/28/08 08/05/16 documented as of this encounter
--- OUTSIDE RECORDS SUMMARY | 2024-03-04 21:48 | XMS_ITS | Encounter Summary ---
Author Organization [facility] Address [address] [place] [address] Care Team Providers Care Sheet Metal Foreman Name Role Phone Kaylene Pinedo MD Primary Care Provider [phone] Encounter Details Date Type Department Care Team [...] on filedocumented in this encounter Care Teams Sheet Metal Foreman Relationship Specialty Start Date End Date Kaylene Pinedo MD [address] [place] [address] PCP - General 08/07/16 documented as of this encounter
--- OUTSIDE RECORDS SUMMARY | 2024-03-04 21:48 | XMS_ITS | Encounter Summary ---
Author Organization [facility] Address [address] [place] [address] Care Team Providers Care Back Filler Operator Name Role Phone Kaylene Pinedo MD Primary Care Provider Encounter Details Date Type Department Care Team ([facility] st Contact Info) Description 10/01/2018 Results Only Imaging [facility] [phone] Inge Rojas MD Social History Tobacco Use Types Packs/Day [...] documented in this encounter Plan of Treatment Pending Results Name Type Priority Associated Diagnoses Date /Time OUTSIDE CD - OTHER CHEST Imaging 10/01/2018 10:59 EDT documented as of this encounter Visit Diagnoses Not on filedocumented in this encounter Care Teams Back Filler Operator Relationship Specialty Start Date End Date Kaylene Pinedo MD [address] [place] [address] PCP - General 08/07/16 documented as of this encounter
--- OUTSIDE RECORDS SUMMARY | 2024-03-04 21:48 | XMS_ITS | Encounter Summary ---
Author Organization [facility] Address [address] [place] [address] Care Team Providers Care Sports Anchor Name Role Phone Kaylene Pinedo MD Primary Care Provider [phone] Reason for Visit * (Routine) - Receiving Office to Obtain Authorization Specialty Diagnoses / Procedures Referred By eLidy lemon Referred To Contact Procedures CT OUTSIDE IMAGES NEURO Inge Rojas MD Referral ID Status Reason Start Date Expiration Date Visits Requested Visits Authorized [id number] Receiving Office to Obtain Authorization 08/11/2019 1 1 Encounter Details Date Type Department Care Team (Latest Contact Info) Description 07/20/2019 - 07/20/2019 23:59 EDT Hospital Encounter [facility] Radiology - Main [place] [address] [place] [address] Discharge Disposition: Home or Self Care Social [...] IMAGES NEURO (08/11/2019 15:58 EDT) Narrative ELISHA Azevedo 08/11/2019 15:58 EDT This is a non-reportable exam. us Inge Jalyn Peterson MD IMG OTHER IMAGING ORD ERABLES Final Result [facility] documented in this encounter Visit Diagnoses Not on filedocumented in this encounter Care Teams Sports Anchor Relationship Specialty Start Date End Date Kaylene Pinedo MD [address] [place] [address] PCP - General 08/07/16 documented as of this encounter
--- OUTSIDE RECORDS SUMMARY | 2024-03-04 21:48 | XMS_ITS | Encounter Summary ---
Author Organization [facility] Address [address] [place] [address] Care Team Providers Care Landscape Account Manager Name Role Phone Inge Rojas MD Primary Care Provide r Unavailable Encounter Details Date Type Department Care Team (Late st Contact Info) Description 08/06/2016 Results Only Imaging [facility] [phone] Inge Rojas MD Social History Tobacco Use [...] on filedocumented in this encounter Care Teams Landscape Account Manager Relationship Specialty Start Date End Date Inge Rojas MD PCP - General 08/06/1607/19 documented as of this encounter
--- OUTSIDE RECORDS SUMMARY | 2024-03-04 21:48 | XMS_ITS | Encounter Summary ---
Author Organization [facility] Address [address] [place] [address] Care Team Providers Care Date Night Sitter Name Role Phone Kristen Skelton MD Primary Care Provider [phone] Encounter Details Date Type Department Care Team (Late st Contact Info) Description 09/09/2006 Results Only [facility] - Maple conversion [address] [place] [address] Alvaro Espinal, DO [address] [place] [address] Social History Tobacco Use Types Packs/Day Years [...] ? RUTHANN WOLF ? Accession #: ? [id number] ? : ? 1955 (Age: 51) ??F [...] the wall averages 0.1 cm thick. ??A customer development representative section of the fundus, body, cystic duct margin (en face) and periductal node is submitted in one cassette. ??(Elijah Ashley)/mpl End of Report [facility] 09/09/2006 09/09/2006 0:4 4 EDT us Alvaro Espinal DO PATHOLOGY ORDERABLES Fi nal Result [facility] [address] [place] [address] documented in this encounter Visit Diagnoses Not on filedocumented in this encounter Care Teams Date Night Sitter Relationship Specialty Start Date End Date Kristen Skelton MD [facility] [address] [place], [place] [phone] PCP - General 09/28/08 08/05/16 documented as of this encounter
--- OUTSIDE RECORDS SUMMARY | 2024-03-04 21:48 | XMS_ITS | Encounter Summary ---
Author Organization [facility] Address [address] [place] [address] Care Team Providers Care Residential Specialist Name Role Phone Kaylene Pinedo MD Primary Care Provider [phone] Reason for Visit * Reason Comments Back Pain * Consult (Routine) - Closed Specialty Diagnoses / Procedures Referred By Contkaleb t Referred To Contact Orthopedic Surgery Diagnoses Low back pain Say Ovalles PA-C [address] [place] [address] Phone: tel: fax: [facility] - [address] [place] [address] Phone: tel: fax: Referral ID Status Reason Start Date Expiration Date Visits Re quested Visits Authorized [id number] Closed 1 1 Encounter Details Date Type Department Care Team (Late st Contact Info) Description 08/07/2016 9:15 EDT Office Visit [facility] - [place] [address] Marianna Olson MD [address] [facility] [place] [address] Lumbar facet arthropathy (Primary Dx); Closed compression fracture of lumbar vertebra, with routine healing, subsequent encounter; Osteopenia of multiple sites Discharge Disposition: Auto Discharge Social History Tobacco Use Types Packs/Day Years Used Date Smoking Tobacco: Never Comments Unknown Sex and Gender [...] 0929 EDT Body Mass Index 22.53 08/07/2016 09 EDT documented in this encounter Discharge Diagnoses Diagnosis M54.5 Low back pain-M54.5[ICD-10-CM] documented in this encounter Discharge Disposition Disposition Code Departure Means Destination Auto Discharge documented in this encounter Progress Notes * Marianna Olson MD - 08/07/2016 0915 EDT This office note has been dictated. * Marianna Olson MD - 08/07/2016 0000 EDT [facility] NEW PATIENT EVALUATION - [...] downgoing, no ankle clonus. Radiographs report from [facility] dated 05/20/2016. Impression: Mild to moderate [...] facet injections. Greater than 25 minutes spent [id number] with patient, clinical exam, review of radiographic data. Greater than 50% of the office visit was spent with education regarding above. Marianna Olson MD 12 46 PM - Marianna Olson MD ln Dictation ID: [id number] cc: Say Ovalles PA-C, [address] [id number] documented in this encounter Plan of Treatment Not on file documented as of this encounter Visit Diagnoses Diagnosis Lumbar facet arthropathy- Primary Lumbosacral spondylosis without myelopathy Closed compression fracture of lumbar vertebra, with routine healing, subsequent encounter Osteopenia of multiple sites documented in this encounter Historical Medications * This list may reflect changes made after this encounter. EPINEPHrine (EPIPEN) 0.3 mg/0.3 mL injection Inject 0.3 mg into the muscle once as needed. traZODone (DESYREL) 50 mg tablet Take 50 mg by mouth at bedtime. fexofenadine (RONALD) 180 mg tablet Take 180 mg by mouth daily. fluticasone (FLOVENT) 110 mcg/actuation inhaler Inhale 110 mcg as directed 2 times daily. 10/06/2018 omega 1-pxd-grd-fish oil 120-180-600 mg capsule Take by mouth. 10/06/2018 Multivitamins with Minerals tablet tablet Take 1 Tab by mouth daily. 10/06/2018 UNABLE TO FIND Med Name: Ning galaviz 10/06/2018 VITAMIN D3-VITAMIN K2, MK4, ORAL Take by mouth. 10/06/2018 added in this encounter Care Teams Residential Specialist Relationship Specialty Start Date End Date Kaylene Pinedo MD [address] [place] [address] PCP - General 08/07/16 documented as of this encounter
--- OUTSIDE RECORDS SUMMARY | 2024-03-04 21:48 | XMS_ITS | Encounter Summary ---
Author Organization [facility] Address [address] [place] [address] Care Team Providers Care Configuration Specialist Name Role Phone Marianna Garcia MD Primary Care Provider [phone] Encounter Details Date Type Department Care Team (Late st Contact Info) Description 03/17/2001 Results Only [facility] - Maple conversion [address] [place] [address] Mell Soto, ELECTRO MECHANIC [address] [phone] Social History Tobacco Use Types Packs/Day Years [...] ? RUTHANN WOLF ? Accession #: ? [id number] : ? 1955 (Age: 46) ??F ?Collect Date: ? 03/17/2001 Location: ? [facility] ? Receive Date: ? 03/20/2001 Provider: ?MELL SOTO ELECTRO MECHANIC Copy to: ? Specimen/Source: ?ThinPrep Pap Test, [...] Date: ??03/27/2001 08:52 End of Report [facility] 03/17/2001 03/20/2001 us Mell Soto NP PATHOLOGY ORDERABLES Final R esult [facility] [address] [place] [address] documented in this encounter Visit Diagnoses Not on filedocumented in this encounter Care Teams Configuration Specialist Relationship Specialty Start Date End Date Marianna Garcia MD [facility] [address] [place] [address] PCP - General 09/28/08 08/05/16 documented as of this encounter
--- OUTSIDE RECORDS SUMMARY | 2024-03-04 21:48 | XMS_ITS | Encounter Summary ---
Author Organization [facility] Address [address] [place] [address] Care Team Providers Care Machinist Mechanic Name Role Phone Kaylene Pinedo MD Primary Care Provider [phone] Encounter Details Date Type Department Care Team ([facility] st Contact Info) Description 08/30/2016 Abstract [facility] Nephrology - [address] [address] Deangelo Cheek MD Social History Tobacco Use [...] * PTH INTACT (07/02/2016) PTH, External 38 [facility] Blood specimen (specimen) 07/02/2016 Result [facility] Provider MD CHEMISTRY & BLOOD GAS ORD ERABLES Final Result [facility]ILITY * VITAMIN D (25,OH) (07/02/2016) 25OH Vitamin D Tot, External 37.2 [facility]ILITY Blood specimen (specimen) 07/02/2016 Result [facility] Provider CHEMISTRY & BLOOD GAS ORD ERABLES Final Result [facility]ILITY * PHOSPHORUS (07/02/2016) Phosphorus, External 4.3 EX[facility]ACILITY Blood specimen (specimen) 07/02/2016 Result [facility] Provider MD CHEMISTRY & BLOOD GAS ORD ERABLES Final Result [facility]ILITY * LIPID PROFILE (INCLUDES CHOLESTEROL, TRIGLYCERIDES, HDL, LDL) (07/02/2016) Cholesterol, External 175 [facility] Triglycerides, External 72 [facility] HDL, External 63 [facility] LDL, External 104 [facility] Chol/HDL Ratio, External [facility] Fasting?, External [facility] Blood specimen (specimen) 07/02/2016 Result [facility] Provider MD CHEMISTRY & BLOOD GAS ORD ERABLES Final Result [facility]ILITY * ALT (05/10/2016) ALT, External 27 [facility] Blood specimen (specimen) 05/10/2016 Result [facility] Historical Provider CHEMISTRY & BLOOD GAS ORD ERABLES Final Result [facility]ILITY * AST (05/10/2016) AST, External 19 [facility] Blood specimen (specimen) 05/10/2016 Result [facility] Historical Provider CHEMISTRY & BLOOD GAS ORD ERABLES Final Result [facility] * GLUCOSE, SERUM (05/10/2016) Glucose, Serum, External 115 [facility]ILITY Blood specimen (specimen) 05/10/2016 Result [facility] Historical Provider CHEMISTRY & BLOOD GAS ORD ERABLES Final Result [facility] * CREATININE (05/10/2016) Creatinine, External 1.27 EX[facility]NAL [facility]ILITY GFR, Calculated, External [facility] Blood specimen (specimen) 05/10/2016 Result [facility] Historical Provider CHEMISTRY & BLOOD GAS ORD ERABLES Final Result [facility] * BUN (05/10/2016) BUN, External 24 [facility] Blood specimen (specimen) 05/10/2016 Result [facility] Historical Provider CHEMISTRY & BLOOD GAS ORD ERABLES Final Result [facility] * HEMAGRAM (05/10/2016) HCT, External 41.3 [facility] MCH, External [facility] MCV, External [facility] MCHC, External [facility] Hemoglobin, External 13.9 [facility]NAL [facility]ILITY WBC, External [facility] RBC, External [facility] PLT, External [facility] RDW-CV, External [facility] Blood specimen (specimen) 05/10/2016 Historical Provider HEMATOLOGY & PF4 ORDERABL ES Final Result [facility] * TSH (09/21/2013) TSH, External 1.62 [facility] Blood specimen (specimen) 09/21/2013 Historical Provider CHEMISTRY & BLOOD GAS ORD ERABLES Final Result [facility] documented in this encounter Visit Diagnoses Not on filedocumented in this encounter Historical Medications * This list may reflect changes made after this encounter. LEVALBUTEROL HCL INHALATION Inhale as directed as needed. 10/06/2018 B INFANTIS/B ANI/B NGOC/B BIFID (PROBIOTIC 4X ORAL) Take by mouth daily. 10/06/2018 added in this encounter Care Teams Machinist Mechanic Relationship Specialty Start Date End Date Kaylene Pinedo MD [address] [place] [address] PCP - General 08/07/16 documented as of this encounter
--- OUTSIDE RECORDS SUMMARY | 2024-03-04 21:48 | XMS_ITS | Encounter Summary ---
Author Organization [facility] Address [address] [place] [address] Care Team Providers Care Cullet Washer Name Role Phone Kaylene Pinedo MD Primary Care Provider [phone] Encounter Details Date Type Department Care Team (Late st Contact Info) Description 08/05/2020 Lab Requisition [facility] Pathology & Laboratory Medicine - [address] [address] Mick Moss MD [address] [place] [phone] Functional dyspepsia; Gastro-esophageal reflux disease without [...] with no specific pathologic features. 08/08/2020 16:18 [facility] Diagnosis Comment The specimen submitted as distal esophagus (specimen F) did not survive processing. 08/08/2020 16:18 [facility] Attestation By the signature below, the attending physician certifies that they have 1) personally conducted a gross and/or microscopic examination of the described specimen(s), and/or personally interpreted the results of laboratory testing of the described specimen(s), and 2) personally rendered or confirmed the above diagnosis. 08/08/2020 16:18 [facility] at 1618 Clinical History Functional dyspepsia; GERD; irritable bowel syndrome; belching, chest discomfort; clinical diagnosis code: K30, K21.9, R07.87 08/08/2020 16:18 [facility] Gross Description A. [...] G1. KACI AGUILAR(ASCP) 08/05/2020 15:25 08/08/2020 16:18 [facility] Performing Lab [facility] 08/08/2020 16:18 [facility] Scanned Images 08/08/2020 16:18 [facility] Tissue ENTIRE ESOPHAGUS / [...] Unknown 08/04/2020 10:00 EDT 08/05/2020 8:43 EDT us Mick Moss MD PATHOLOGY ORDERABLES Final Result [facility] [address] [place] [address] documented in this encounter Visit Diagnoses Diagnosis Functional dyspepsia Dyspepsia and other specified disorders of function of stomach Gastro-esophageal reflux disease without esophagitis Esophageal reflux Other chest pain documented in this encounter Care Teams Cullet Washer Relationship Specialty Start Date End Date Kaylene Pinedo MD [address] [place] [address] PCP - General 08/07/16 documented as of this encounter
--- OUTSIDE RECORDS SUMMARY | 2024-03-04 21:49 | XMS_ITS | Encounter Summary ---
Author Organization [facility] [place] [address] Care Team Providers Care Transportation Agent Name Role Phone Christel Arndt Primary Care Provider Encounter Details Date Type Department Care Team (Latest Contact Info) Description 06/24/2023 9:25 AM EDT Laboratory Appointment Lab [address] [place] [phone] Stage 3b chronic kidney disease; Primary hypertension [...] Care Team (Late st Contact Info) Description 03/16/2024 10:15 AM EST Office Visit Audiology at [address] [phone] Anna Hernandez, PhD [facility] [place] [address] 08/03/2024 10:00 AM EDT Office [place] [address] Deborah Richardson APRN [facility] [place] [address] documented as of this encounter Procedures Procedure Name Priority Date/Time Associated Diagnosis Comments PTH Routine 06/24/2023 9:41 AM EDT Stage 3b chronic kidney disease Primary hypertension HEMOGRAM Routine 06/24/2023 9:41 AM EDT Stage 3b chronic kidney disease Primary hypertension DIFFERENTIAL, AUTOMATED Routine 06/24/2023 9:41 AM EDT Stage 3b chronic kidney disease Primary hypertension VITAMIN D, 25-HYDROXY Routine 06/24/2023 9:41 AM EDT Stage 3b chronic kidney disease Primary hypertension CBC (WITH DIFF) Routine 06/24/2023 9:41 AM EDT Stage 3b chronic kidney disease Primary hypertension TSH Routine 06/24/2023 9:41 AM EDT ALBUMIN LEVEL Routine 06/24/2023 9:41 AM EDT Stage 3b chronic kidney disease Primary hypertension BASIC METABOLIC PANEL Routine 06/24/2023 9:41 AM EDT Stage 3b chronic kidney disease Primary hypertension PROTEIN/CREATININE RATIO, URINE Routine 06/24/2023 9:38 AM EDT Stage 3b chronic kidney disease Primary hypertension U ALBUMIN/CRE RATIO Routine 06/24/2023 9:38 AM EDT Stage 3b chronic kidney disease Primary hypertension documented in this encounter Results * TSH (06/24/2023 9:41 AM EDT) Thyroid Stimulating Hormone 2.03 0.27 - 4.20 mcIU/mL [facility] Comment: Reference Interval (mcIU/mL): Females: ??First Trimester: 0.23-3.88 ??Second Trimester: 0.22-3.90 ??Third Trimester: 0.44-4.66 Blood Venous Draw / Unknown 06/24/2023 9:41 AM EDT 06/24/2023 10:10 AM EDT Narrative Resulting Agency Comment Spec In Lab Kwame Day MD CHEMISTRY ORDERABLES [facility] [place] [address] * Differential, Automated (06/24/2023 9:41 AM EDT) Neutrophil % 46.7 % [facility] Neutrophil Absolute 2.30 1.70 - 6.10 x10(3)/[facility] Lymph % 37.4 % [facility] Lymphocytes Abs 1.8 0.9 - 3.2 x10(3)/[facility] Monocyte % 11.1 % [facility] Monocyte Abs 0.6 0.3 - 0.9 x10(3)/[facility] Eos % 3.6 % [facility] Eosinophils Abs 0.2 0.0 - 0.4 x10(3)/[facility] Basophil % 1.0 % [facility] Baso Absolute 0.0 0.0 - 0.1 x10(3)/[facility] Immature Gran % 0.20 % [facility] Comment: Immature granulocytes(IG's)percentage and absolute count will include metamyelocytes, myelocytes, and promyelocytes. Blood smears from CBCs yielding IG's will be scanned manually for concordance. If this scan disagrees with the automated IG or if promyelocytes are noted, a manual differential will be performed. Immature Gran Absolute 0.01 0.00 - 0.04 x10(3)/[facility] Blood 06/24/2023 9:41 AM EDT 06/24/2023 10:02 AM EDT Narrative Resulting Agency Comment Spec In Lab Kwame Day MD HEMATOLOGY ORDERABLE S [facility] [place] [address] * Hemogram (06/24/2023 9:41 AM EDT) [facility] White Blood Cell 4.9 4.0 - 9.5 x10(3)/[facility] Red Blood Cell 4.28 4.00 - 5.21 x10(6)/[facility] Hemoglobin 12.5 11.7 - 15.5 g/dL [facility] Hematocrit 38.5 35.7 - 45.8 % [facility] Mean Cell Volume 90.0 82.6 - 94.4 fL [facility] Mean Cell Hemoglobin 29.2 27.1 - 32.0 pg [facility] Mean Cell Hemoglobin Concentration 32.5 31.7 - 35.0 g/dL [facility] Platelet 243 145 - 357 x10(3)/[facility] RDW Standard Deviation 43.8 37.0 - 46.0 [facility] RDW coefficient of variation 13.2 11.5 - 14.1 % [facility] Mean Platelet Volume 11.9 7.6 - 12.9 [facility] NRBC% auto 0.0 % [facility] NRBC Absolute 0.000 0.000 - 0.000 x10(3)/[facility] Blood 06/24/2023 9:41 AM EDT 06/24/2023 10:02 AM EDT Narrative Resulting Agency Comment Spec In Lab Kwame Day MD HEMATOLOGY ORDERABLE S [facility] [place] [address] * Vitamin D, 25-Hydroxy (06/24/2023 9:41 AM EDT) [facility] Vitamin D Total 25 OH 46 21 - 100 ng/mL [facility] Vit D Interp Sufficient [facility] Blood 06/24/2023 9:41 AM EDT 06/24/2023 10:01 AM EDT Narrative Resulting Agency Comment Spec In Lab Kwame Day MD CHEMISTRY ORDERABLES Performing Organization Address City/[facility]/ZIP Co de Phone Number [facility] [place] [address] * PTH (06/24/2023 9:41 AM EDT) Parathyroid Hormone 49 15 - 65 pg/mL [facility] Blood 06/24/2023 9:41 AM EDT 06/24/2023 10:02 AM EDT Narrative Resulting Agency Comment Spec In Lab Kwame Day MD CHEMISTRY ORDERABLES Performing Organization Address [facility] Co de Phone Number [facility] [place] [address] * Albumin Level (06/24/2023 9:41 AM EDT) Albumin 4.2 3.2 - 5.2 g/dL [facility] Blood 06/24/2023 9:41 AM EDT 06/24/2023 10:01 AM EDT Narrative Resulting Agency Comment Spec In Lab Kwame Day MD CHEMISTRY ORDERABLES Performing Organization Address City/[facility] Co de Phone Number [facility] [place] [address] * (ABNORMAL) Basic Metabolic Panel (non-fasting) (06/24/2023 9:41 AM EDT) Glucose 78 65 - 199 mg/dL [facility] Comment:Diabetes: >=200 mg/d L plus symptoms Blood Urea Nitrogen 18 8 - 18 mg/dL [facility] Creatinine 1.36(H) 0.70 - 1.20 mg/dL [facility] Sodium 145 135 - 145 mmol/L [facility] Potassium 4.5 3.5 - 5.0 mmol/L [facility] Comment: Please note: ??Patients with WBC >100,000 may have falsely elevated Potassium levels. ??For accurate Potassium quantification in these patients send serum separator tube (gold top) for subsequent determinations. ??Contact the Clinical Chemistry Laboratory if there are any questions. Chloride 108(H) 98 - 107 mmol/L [facility] Carbon Dioxide 27 22 - 31 mmol/L [facility] Anion Gap 10 5 - 15 mmol/L [facility] Calcium 9.4 8.5 - 10.5 mg/dL [facility] Est Glomerular Filtration Rate 43(L) >=60 mL/min/1. 73 m?? [facility] Comment: This patient's estimated GFR [...] In Lab Kwame Day MD CHEMISTRY ORDERABLES [facility] [place] [address] * Protein/Creatinine Ratio, urine (06/24/2023 9:38 AM EDT) Creatinine, Urine 21 mg/dL [facility] Protein, Urine <6 0 - 12 mg/dL [facility] Protein / Creatinine Ratio, Urine <0.3 ratio [facility] Urine 06/24/2023 9:38 AM EDT 06/24/2023 9:56 AM EDT Narrative Resulting Agency Comment Spec In Lab Kwame Day MD URINE ORDERABLES [facility] [place] [address] * U Albumin/Cre Ratio (06/24/2023 9:38 AM EDT) Albumin / Creatinin Ratio, Urine Not Calculated 0 - 29 mcg/mg Cr [facility] Comment: Reference Ranges: <30 mcg/mg: [...] on 06/24/23 11:05:43 EDT by Sharyn Trivedi Albumin, Urine <3.0 mg/L [facility] Comment:Corrected from <3.0 mg/L [NA] on 06/24/23 11:05:43 EDT by Sharyn Trivedi Creatinine, Urine 21 mg/dL [facility] Urine 06/24/2023 9:38 AM EDT 06/24/2023 9:56 AM EDT Narrative Resulting Agency Comment Spec In Lab Kwame Day MD URINE ORDERABLES Performing Organization Address City/[facility]/ZIP Co de Phone Number [facility] [place] [address] documented in this encounter Visit Diagnoses Diagnosis Stage 3b chronic kidney disease Primary hypertension Unspecified essential hypertension documented in this encounter Care Teams Transportation Agent Relationship Specialty Start Date End Date Christel Arndt [address] [place] [address] PCP - General Family Medicine 06/28/22 documented as of this encounter
--- OUTSIDE RECORDS SUMMARY | 2024-03-04 21:49 | XMS_ITS | Encounter Summary ---
Author Organization [facility] [place] [address] Care Team Providers Care Site Head Name Role Phone JayashreeAryaChristel Primary Care Provider [phone] Encounter Details Date Type Department Care Team (Late st Contact Info) Description 12/25/2022 9:20 AM EST [place] [address] Deborah Richardson APRN [facility] [place] [address] IC (interstitial cystitis); Overactive bladder; Urinary frequency; [...] Richardson APRN - 12/25/2022 9:20 AM EST [facility] SECTION OF UROLOGY OUT PATIENT FOLLOW UP [...] & family, never a smoker, no etoh. 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 Denies changes in [...] satisfaction Deborah Richardson APRN Section of Urology [phone] documented in this encounter Plan of Treatment Upcoming Encounters Date Type Department Care Team (Late st Contact Info) Description 03/16/2024 10:15 AM EST Office Visit Audiology at [address] [phone] Anna Hernandez, PhD [facility] [place] [address] 08/03/2024 10:00 AM EDT [place] [address] Deborah Richardson APRN [facility] [place] [address] documented as of this encounter Procedures Procedure Name Priority Date/Time Associated Diagnosis Comments HC URINALYSIS ROUTINE Routine 12/25/2022 10:10 AM EST IC (interstitial cystitis) Urinary frequency URINE CULTURE Routine 12/25/2022 10:10 AM EST IC (interstitial cystitis) Urinary frequency documented in this encounter Results * Urine culture Clean Catch Urine (12/25/2022 10:10 AM EST) Urine Culture 1,000-9,000 cfu/ml Insignificant growth [facility] Clean Catch Urine 12/25/2022 10:10 AM EST 12/25/2022 3:50 PM EST Narrative Resulting Agency Comment Spec In Lab Deborah Richardson APRN MICROBIOLOGY - GENE RAL ORDERABLES Performing Organization Address City/State/[facility] Co de Phone Number [facility] [place] [address] * (ABNORMAL) _Urinalysis with microscopic (12/25/2022 10:10 AM EST) Glucose, Urine Dipstick Negative Negative mg/dL [facility] Protein, Urine Dipstick Negative Negative mg/dL [facility] Bilirubin, Urine Dipstick Negative Negative mg/dL [facility] Comment: Clinical correlation required for positive Urine Bilirubin results as false positive may occur with some drugs and drug related products. If a false positive is suspected a serum total bilirubin should be considered if clinically indicated. Urobilinogen, Urine Dipstick Normal Normal mg/dL [facility] pH, Urn (dipstick) 7.0 5.0 - 8.0 [facility] Blood, Urine Dipstick Trace(A) Negative mg/dL [facility] Ketone, Urine Dipstick Negative Negative mg/dL [facility] Nitrite, Urine Dipstick Negative Negative [facility] Leukocytes, Urine Dipstick Negative Negative [facility] Appearance, Urine Dipstick Clear Clear [facility] Specific [place] Urine Automated 1.007 1.005 - 1.030 [facility] Color, Urine Dipstick Yellow Yellow [facility] RBC, Urine 0 0 - 4 /HPF [facility] WBC, Urine 0 0 - 5 /HPF [facility] Urine 12/25/2022 10:1 0 AM EST 12/25/2022 2:47 PM EST Narrative Resulting Agency Comment Spec In Lab Deborah A Chantellenoche METER ENGINEER URINE ORDERABLES [facility] [place] [address] documented in this encounter Visit Diagnoses Diagnosis IC (interstitial cystitis) Chronic interstitial cystitis Overactive bladder Hypertonicity of bladder Urinary frequency Mixed stress and urge urinary incontinence Mixed incontinence urge and stress (male)(female) documented in this encounter Care Teams Site Head Relationship Specialty Start Date End Date Christel Arndt [address] [place] [address] PCP - General Family Medicine 06/28/22 documented as of this encounter
--- OUTSIDE RECORDS SUMMARY | 2024-03-04 21:49 | XMS_ITS | Encounter Summary ---
[place] [address] Care Team Providers Care Cut And Print Machine Operator Name Role Phone JayashreeArya Christel Primary Care Provider [phone] Reason for Referral * Audiology Exam (Routine) - Authorized Specialty Diagnoses / Procedures Referred By Leidy lemon Referred To Contact Audiology Diagnoses Other abnormalities of gait and mobility Diego Maravilla MD [address] [place] [address] [facility] [address] [place] [phone] Referral ID Status Reason Start Date Expiration Date Visits Requested Visits Authorized [id number] Authorized Specialty Service Requested 12/07/2024 1 1 Encounter Details Date Type Department Care Team (Late st Contact Info) Description 12/08/2023 Transcribe Orders eDH Incoming Referrals [phone] Diego Maravilla MD [address] [place] [address] Other abnormalities of gait and mobility (Primary Dx) Social History Tobacco Use Types [...] 10:15 AM EST Office Visit Audiology at [address] [phone] Anna Hernandez, PhD [facility] [place] [address] 08/03/2024 10:00 AM EDT [place] [phone] Deborah Richardson APRN [facility] [place] [address] Scheduled Referrals Name Type Priority Associated Diagnoses Orde r Schedule Referral to Audiology Outpatient Referral Routine Other abnormalities of gait and mobility Ordered: 12/08/2023 documented as of this encounter Visit Diagnoses Diagnosis Other abnormalities of gait and mobility- Primary documented in this encounter Care Teams Cut And Print Machine Operator Relationship Specialty Start Date End Date Christel Arndt [address] [place] [address] PCP - General Family Medicine 06/28/22 documented as of this encounter
--- OUTSIDE RECORDS SUMMARY | 2024-03-04 21:49 | XMS_ITS | Encounter Summary ---
Author Organization [facility] [place] [address] Care Team Providers Care Vice Chairman Name Role Phone Moiar Covarrubias MD Primary Care Provider [phone] Encounter Details Date Type Department Care Team [...] 10:15 AM EST Office Visit Audiology at [address] [phone] Anna Hernandez, PhD [facility] [place] [address] 08/03/2024 10:00 AM EDT Office [place] [phone] Deborah Richardson GRAIN SHOVELER [facility] [place] [address] documented as of this encounter Visit Diagnoses Not on filedocumented in this encounter Care Teams Vice Chairman Relationship Specialty Start Date End Date Moira Covarrubias MD PCP - General Family Medicine 07/17/21 06/27/22 documented as of this encounter
--- OUTSIDE RECORDS SUMMARY | 2024-03-04 21:49 | XMS_ITS | Encounter Summary ---
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 Cis Free Text Allergy multiple foods. [place] Corticosteroids (Glucocorticoids) Cranberry Fruit Dog Dander Erythromycin [...] D2-Soybean] Stone Fruit Other reaction(s): Unknown Tiotropium [place] Tree And Shrub Pollen Other reaction(s): Unknown Tree Nut Peanuts and products/all nuts and oils Tree Nuts Queen Pollen Other reaction(s): Unknown PHYSICAL EXAM: Last [...] 30 minutes was spent for reviewing chart, [id number] encounter, ordering labs/medication,documentation in the chart, and coordinating care. RTC 1 year CC-Christel Blanc-Sherwin Day MD 06/24/2023 Hypertension-Nephrology documented in this encounter Plan of Treatment Upcoming Encounters Date Type Department Care Team (Late st Contact Info) Description 03/16/2024 10:15 AM EST Office Visit Audiology at [address] [phone] Anna Hernandez, PhD [facility] [place] [address] 08/03/2024 10:00 AM EDT Office [place] [address] Deborah Richardson APRN [facility] [place] [address] documented as of this encounter Visit Diagnoses Diagnosis Chronic fatigue Other malaise and fatigue documented in this encounter Care Teams Magneto Repairer Relationship Specialty Start Date End Date Christel Arndt [address] [place] [address] PCP - General Family Medicine 06/28/22 documented as of this encounter
--- OUTSIDE RECORDS SUMMARY | 2024-03-04 21:49 | XMS_ITS | Encounter Summary ---
Author Organization [facility] [place] [address] Care Team Providers Care Bag Inspector Name Role Phone MilkaSherwinChristel Primary Care Provider [phone] Encounter Details Date Type Department Care Team (Late st Contact Info) Description 01/06/2023 Telephone [place] [phone] Kwame Day MD [facility] [place] [address] Social History Tobacco Use Types Packs/Day Years [...] 10:15 AM EST Office Visit Audiology at [address] [phone] Anna Hernandez, PhD [facility] [place] [address] 08/03/2024 10:00 AM EDT Office [place] [phone] Deborah Richardson, BLOCK TRADER [facility] [place] [address] documented as of this encounter Visit Diagnoses Not on filedocumented in this encounter Care Teams Bag Inspector Relationship Specialty Start Date End Date Christel Arndt [address] [place] [address] PCP - General Family Medicine 06/28/22 documented as of this encounter
--- OUTSIDE RECORDS SUMMARY | 2024-03-04 21:49 | XMS_ITS | Encounter Summary ---
Author Organization [facility] [place] [address] Care Team Providers Care Stone Fabricator Name Role Phone Christel Arndt Primary Care Provider Encounter Details Date Type Department Care Team (Late st Contact Info) Description 08/22/2023 Telephone [place] [address] Kwame Day MD [facility] [place] [address] Social History Tobacco Use Types Packs/Day Years [...] 08/22/2023 1:20 PM EDT Talked to Ruthann Mendoza Hay She continues to have generalized pain and [...] 10:15 AM EST Office Visit Audiology at [address] [phone] Anna Hernandez, PhD [facility] [place] [address] 08/03/2024 10:00 AM EDT [place] [phone] Deborah Richardson, UROLOGIC SURGEON [facility] [place] [address] documented as of this encounter Visit Diagnoses Not on filedocumented in this encounter Care Teams Stone Fabricator Relationship Specialty Start Date End Date Christel Arndt [address] [place] [address] PCP - General Family Medicine 06/28/22 documented as of this encounter
--- OUTSIDE RECORDS SUMMARY | 2024-03-04 21:49 | XMS_ITS | Encounter Summary ---
Author Organization [facility] [place] [address] Care Team Providers Care Sifter And Miller Name Role Phone Christel Arndt Primary Care [...] 10:15 AM EST Office Visit Audiology at [address] [phone] Anna Hernandez, PhD [facility] [place] [address] 08/03/2024 10:00 AM EDT [place] [phone] Deborah Richardson PERSONAL INJURY PARALEGAL [facility] [place] [address] documented as of this encounter Visit Diagnoses Not on filedocumented in this encounter Care Teams Sifter And Miller Relationship Specialty Start Date End Date Christel Arndt [address] [place] [address] PCP - General Family Medicine 06/28/22 documented as of this encounter
--- OUTSIDE RECORDS SUMMARY | 2024-03-04 21:49 | XMS_ITS | Encounter Summary ---
Author Organization [facility] [place] [address] Care Team Providers Care Real Estate Management Specialist Name Role Phone JayashreeAryaChristel Primary Care Provider Encounter Details Date Type Department Care Team (Late st Contact Info) Description 11/05/2023 10:00 AM EDT [place] [address] Deborah Richardson APRN [facility] [place] [address] Overactive bladder; Mixed stress and urge urinary incontinence; IC (interstitial cystitis); Dysuria Social History Tobacco Use Types Packs/Day [...] Sign Reading Time Taken Comments Blood Pressure 125/82 11/05/2023 11:02 AM EDT Pulse 81 11/05/2023 11:02 AM EDT Temperature - - Respiratory Rate - - Oxygen Saturation - - Inhaled Oxygen Concentration - - Weight - - Height - - Body Mass Index - - documented in this encounter Progress Notes * Deborah Richardson APRN - 11/05/2023 10:00 AM EDT [facility] SECTION OF UROLOGY OUT PATIENT FOLLOW UP VISIT History of Present Illness: Ruthann Guido is an 68 y.o. year old woman here for follow [...] Ruthann presents for routine follow up. She continues to feel like she is having worsening urgency and frequency. Voiding 1-2x/hr during the day and waking 1x per night. When voiding, frequent small amounts. She feels she is emptying well. She is regularly doing urge suppression and double voiding. Bowels are good- daily no constipation. She has very mild stress incontinence with coughing or sneezing. Generally not bothersome, but inconvenient at times. . No recent UTI's. She has some bladder pain/pressure if prolongs urinations. No dysuria or gross hematuria. She was on estrace previously, forgets often. Avg Daily Fluid Intake: ~ 48oz water, 2 cup decaf green tea. PMH: CKD, asthma, central serous chorioretinopathy, GERD, [...] & family, never a smoker, no etoh. 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 OBJECTIVE FINDINGS: Physical Exam: Blood Pressure 125/82 Pulse 81 Last Menstrual Period (LMP Unknown) GENERAL: Patient is well appearing and is not in acute distress. RESPIRATORY: Breathing comfortably. NEURO: Oriented to Person, place and time. ABDOMEN: soft, non tender. Pelvic: (04/2021 The external genitalia are normal [...] (with use of bladder ultrasound, by scanner): 38ml 12/2022: 113cc 04/2022: 55ml 04/2021: 30-40 cc Urine dipstick positive for + blood and leuks. Recent Labs: 06/07/2021: cre 1.38, glucose 117, lytes normal, GFR 41 and LFTs normal on amitriptyline. 07/20/2021: 1.41 and GFR 39 07/31/23: Cre 1.6, eGFR 35 Impression: OAB w/ ANALI History of IC- [...] urge incontinence to help with OAB sx. Started vibegron 75mg PO dialy. Free trial submitted and prescription support services. PFPT- only if in [place], will defer referral as I do not believe there is one in that area. Willreconsider. Discussed PTNS or bladder botox pros/cons of each- she is not interested in these therapies at thistime. PTNS difficult due to drive. UA w/ micro & culture today given symptoms and positive UA Dip. Treat pending final culture sensitivity. Follow up in 3 months (scheduled at exit). Patient verbalizes understanding and is agreeable to plan. All questions answered to her apparent satisfaction Deborah Richardson APRN Section of Urology [phone] * Leila Asencio APRN - 11/05/2023 10:00 AM EDT Urine culture negative. Results shared with patient via portal. documented in this encounter Plan of Treatment Upcoming Encounters Date Type Department Care Team (Late st Contact Info) Description 03/16/2024 10:15 AM EST Office Visit Audiology at [address] [phone] Anna Hernandez, PhD [facility] [place] [address] 08/03/2024 10:00 AM EDT [place] [phone] Deborah Richardson APRN [facility] [place] [address] documented as of this encounter Procedures Procedure Name Priority Date/Time Associated Diagnosis Comments _URINALYSIS WITH MICRSOCOPIC Routine 11/05/2023 1:20 PM EDT Overactive bladder IC (interstitial cystitis) URINALYSIS MICROSCOPIC EXAM Routine 11/05/2023 1:20 PM EDT Overactive bladder IC (interstitial cystitis) URINALYSIS DIPSTICK Routine 11/05/2023 1 :20 PM EDT Overactive bladder IC (interstitial cystitis) URINE CULTURE Routine 11/05/2023 1:20 PM EDT Overactive bladder IC (interstitial cystitis) documented in this encounter Results * Urinalysis Microscopic Exam (11/05/2023 1:20 PM EDT) Bacteria, Urine None None /HPF 3:27 PM EDT [facility] RBC, Urine 1 0 - 4 /HPF 11/05/2023 3:27 PM EDT [facility] WBC, Urine 1 0 - 5 /HPF 11/05/2023 3:27 PM EDT [facility] Squamous Epithelial Cells, Urine 0 0 - 5 /HPF 11/05/2023 3:27 PM EDT [facility] Hyaline Casts, Urine 0 0 - 2 /LPF 11/05/2023 3:27 PM EDT [facility] Urine Non Blood Collection / Unknown 11/05/2023 1:20 PM EDT 11/05/2023 2:57 PM EDT Deborah Richardson APRN URINE ORDERABLES [facility] [place] [address] * (ABNORMAL) Urinalysis Dipstick (11/05/2023 1:20 PM EDT) Glucose, Urine Dipstick Negative Negative 11/05/2023 3:27 PM EDT [facility] Protein, Urine Dipstick Negative Negative 11/05/2023 3:27 PM EDT [facility] Bilirubin, Urine Dipstick Negative Negative 11/05/2023 3:27 PM EDT [facility] Comment:Clinical correlation required for positive Urine Bilirubin results as false positive may occur with some drugs and drug related products. If a false positive is suspected a serum total bilirubin should be considered if clinically indicated. Urobilinogen, Urine Dipstick Normal Normal, 0.2 mg/dL, 1.0 mg/dL 11/05/2023 3:27 PM EDT [facility] pH, Urine (dipstick) 6.0 5.0 - 8.0 11/05/2023 3:27 PM EDT [facility] Blood, Urine Dipstick Trace(A) Negative 11/05/2023 3:27 PM EDT [facility] Ketone, Urine Dipstick Negative Negative 11/05/2023 3:27 PM EDT [facility] Nitrite, Urine Dipstick Negative Negative 11/05/2023 3:27 PM EDT [facility] Leukocytes, Urine Dipstick Trace(A) Negative 11/05/2023 3:27 [facility] Specific [place] Urine Automated 1.006 1.005 - 1.030 11/05/2023 3:27 PM [facility] Appearance, Urine Dipstick Clear Clear 11/05/2023 3:27 PM EDT [facility] Color, Urine Dipstick Yellow Yellow, Dark Yellow 11/05/2023 3:27 PM EDT [facility] CULTURE ADDED? 11/05/2023 3:27 PM [facility] Urine Non Blood Collection / Unknown 11/05/2023 1:20 PM EDT 11/05/2023 2:57 PM EDT Deborah Richardson APRN URINE ORDERABLES [facility] [place] [address] * Urine culture (11/05/2023 1:20 PM EDT) Urine Culture 1,000-9,000 cfu/ml Insignificant growth 11/06/2023 10:47 AM EDT [facility] Urine URINE SPECIMEN OBTAINED BY CLEAN CATCH PROCEDURE / Unknown Non Blood Collection / Unknown 11/05/2023 1:20 PM EDT 11/05/2023 2:57 PM EDT Deborah Richardson APRN MICROBIOLOGY - [place] [address] documented in this encounter Visit Diagnoses Diagnosis Overactive bladder 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
--- OUTSIDE RECORDS SUMMARY | 2024-03-04 21:49 | XMS_ITS | Encounter Summary ---
Author Organization [facility] [place] [address] Care Team Providers Care Repairer General Name Role Phone Christel Arndt Primary Care Provider [phone] Encounter Details Date Type Department Care Team (Late st Contact Info) Description 08/18/2023 Telephone [place] [address] Kwame Day MD [facility] [place] [address] Social History Tobacco Use Types Packs/Day Years [...] 10:15 AM EST Office Visit Audiology at [address] [address] Anna Hernandez, PhD [facility] [place] [place] [address] 08/03/2024 10:00 AM EDT [place] [phone] Deborah Richardson, FLEET SALES MANAGER [facility] [place] [address] documented as of this encounter Visit Diagnoses Not on filedocumented in this encounter Care Teams Repairer General Relationship Specialty Start Date End Date Christel Arndt [address] [place] [address] PCP - General Family Medicine 06/28/22 documented as of this encounter
--- OUTSIDE RECORDS SUMMARY | 2024-03-04 21:49 | XMS_ITS | Encounter Summary ---
Author Organization [facility] [place] [address] Care Team Providers Care Business Mgr Name Role Phone Christel Arndt Primary Care [...] 10:15 AM EST Office Visit Audiology at [address] [phone] Anna Hernandez, PhD [facility] [place] [address] 08/03/2024 10:00 AM EDT Office [place] [phone] Deborah Richardson GEOSCIENCE TECHNICIAN [facility] [place] [address] documented as of this encounter Visit Diagnoses Not on filedocumented in this encounter Care Teams Business Mgr Relationship Specialty Start Date End Date Christel Arndt [address] [place] [address] PCP - General Family Medicine 06/28/22 documented as of this encounter
--- OUTSIDE RECORDS SUMMARY | 2024-03-04 21:49 | XMS_ITS | Clinical Summary ---
Author Organization [facility] [place] [address] Care Team Providers Care Lemon Picker Name Role Phone JayashreeArya Christel Primary Care Provider Allergies Active Allergy Reactions Criticality Noted Date Comments Animal Dander 05/14/2022 Other reaction(s): Unknown Asparagus 08/21/2022 Tingling of moth and tongue Birch 05/14/2022 Cat/Feline Products 01/16/2022 Cigarette Smoke 08/21/2022 Cis Free Text Allergy High Peanuts, ham, rice, nuts, soy seeds Cis Free Text Allergy muscle relaxants. Cis Free Text Allergy many antidepressants. Cis Free Text Allergy many antianxiety. Cis Free Text Allergy multiple foods. [place] 10/06/2018 Corticosteroids (Glucocorticoids) Cranberry Fruit 08/21/2022 Dog [...] beaverages Pork/Porcine Containing Products 10/06/2018 Prunes 05/14/2022 Raspberry 02/03/2024 Rice Starch 05/14/2022 Other reaction(s): Unknown Samir 10/06/2018 Shellfish Containing Products 10/06/2018 Soy 10/06/2018 Other reaction(s): Unknown Calcium-Vitamin D2-Soybean 05/14/2022 Stone Fruit 10/29/2021 Other reaction(s): Unknown Tiotropium [employer] 10/06/2018 Tree And Shrub Pollen 05/14/2022 Other reaction(s): Unknown Tree Nut 10/06/2018 Peanuts and products/all nuts and oils Tree Nuts 05/14/2022 [place] Pollen 05/14/2022 Other reaction(s): Unknown Medications Medication [...] g vaginally. 3 TIMES A WEEK Active albuteroL (Proventil) 2.5 mg /3 mL [...] % [place] Apply to eye daily. Active multivitamin (THERAGRAN) Tablet Take 1 tablet by mouth daily. Active famotidine (Pepcid) 20 mg tablet Take 20 mg by mouth 2 times daily as needed. Active cholecalciferol, Vitamin D3, (Vitamin D3) 50 mcg (2,000 unit) tablet Take 2 tablets by mouth daily. Active spironolactone (Aldactone) 25 mg tablet Take 25 mg by mouth daily. Active ferrous sulfate (FeroSul) 325 mg (65 mg iron) tablet Take 325 mg by mouth daily (with breakfast). Active magnesium oxide/magnesium (MAGNESIUM, OXIDE/AA CHELATE, ORAL) Take by mouth. Active turmeric (CURCUMIN MISC) by Misc.(Non-Drug; Combo Route) route. Active Active Problems Problem Noted Date Diagnosed [...] Encounters Date Type Department Care Team Description 02/03/2024 11:00 AM EST Office Visit Urology at [place] [phone] Deborah Richardson APRN Mixed stress and urge urinary incontinence; Overactive bladder; IC (interstitial cystitis); History of UTI 02/03/2024 9:30 AM EST Office Visit [place] [address] Kwame Day MD Stage 3b chronic kidney disease; Primary hypertension; Chronic fatigue 02/03/2024 Travel 01/27/2024 External Results [place] [address] Tosha Leal RN Stage 3b chronic kidney disease; Primary hypertension; Chronic fatigue 12/08/2023 Transcribe Orders eD Incoming Referrals [phone] Diego Lim MD Other abnormalities of gait and mobility (Primary Dx) from Last 3 Months Immunizations Name Administration Dates Next Due Covid-19 Monovalent (Pfizer Comirnaty purple cap) 12yrs+ ([id number]) 05/23/2020 Influenza Unspecified Formulation 2020,12/20/2019,02/08/2017,04/07,11/23/2012 Pneumococcal 13-Valent Conju gate (Prevnar 13) 2021 Pneumococcal 20-Valent Conju gate (Prevnar 20) 03/17/2022 Pneumococcal 23-Valent Polys accharide (Pneumovax 23) 09/08/2015 Td Adult 11/28/1994 Td Adult (Decavac, Tenivac) 11/28/1994 Tdap (Adacel, Boostrix) 06/15/2007 Zoster Recombinant (ShingRix) 11/22/2019, 000 Family History Medical History Relation Comments Allergic [...] Sign Reading Time Taken Comments Blood Pressure 124/70 02/03/2024 10:52 AM EST Pulse 81 02/03/2024 10:52 AM EST Temperature 36.8 ??C (98.2 ??F) 02/03/2024 10:[address] Respiratory Rate 16 02/03/2024 10:52 AM EST Oxygen Saturation 96% 02/03/2024 10:52 AM EST Inhaled Oxygen Concentration - - Weight 67.6 kg (149 lb) 02/03/2024 10:52 AM EST Height 170.2 cm (5' 7) 02/03/2024 10:52 AM EST Body Mass Index 23.34 02/03/2024 10:52 AM EST Plan of Treatment Upcoming Encounters Date Type Department Care Team (Late st Contact Info) Description 03/16/2024 10:15 AM EST Office Visit Audiology at [address] [phone] Anna Hernandez, PhD [facility] [place] [address] 08/03/2024 10:00 AM EDT [place] [address] Deborah Richardson CUSTOMER COUNTER REPRESENTATIVE [facility] [place] [address] Health Maintenance Due Date Last Done Comments CT Colonography 1956 Colonoscopy 1956 Colorectal Cancer Screening 1956 FIT DNA 1956 FIT 1956 Sigmoidoscopy (10 year) with FIT yearly 1956 Sigmoidoscopy 1956 Hepatitis C Screening 01/14/1974 Lipid Screening 01/14/1974 Breast Cancer Share Decision Needed 1996 Breast Cancer screening 1996 RSV Vaccine (1 - Risk 60-74 years 1-dose series) 2016 Tetanus/Diphtheria/Pertussis Vaccines (2 - Td or Tdap) 06/14/2017 06/15/2007, 11/28/1994, 11/28/1994 Bone Density Scan 01/14/2021 Covid-19 Vaccine (2 - 2023-2 5 season) 2023 05/23/2020 Influenza (Flu) vaccine (1 o f 1 - Influenza standard series) 10/19/2023 12/25/2020, 12/20/2019, 02/08/2017, Additional history exists Zoster vaccine Completed 11/22/2019, 09/14/1999 Pneumoccocal Vaccine: 50+ Completed 2022, 2021, 09/08/2015 Procedures Procedure Name Priority Date/Time Associated Diagnosis Comments URINALYSIS BEAKER MICROSCOPIC ([facility]) Routine 02/03/2024 11:17 AM EST Mixed stress and urge urinary incontinence Overactive bladder History of UTI URINALYSIS MICROSCOPIC EXAM Routine 02/03/2024 11:17 AM EST Mixed stress and urge urinary incontinence Overactive bladder History of UTI URINALYSIS DIPSTICK Routine 02/03/2024 1 1:17 AM EST Mixed stress and urge urinary incontinence Overactive bladder History of UTI _URINALYSIS WITH MICRSOCOPIC Routine 02/03/2024 11:17 AM EST Mixed stress and urge urinary incontinence Overactive bladder History of UTI URINE CULTURE Routine 02/03/2024 11:17 AM EST Mixed stress and urge urinary incontinence Overactive bladder History of UTI LAB SCAN 01/27/2024 12:00 AM EST LAB SCAN 01/27/2024 12:00 AM EST ALBUMIN LEVEL Routine 01/27/2024 Stage 3b chronic kidney disease Primary hypertension Chronic fatigue U ALBUMIN/CRE RATIO Routine 01/27/2024 Stage 3b chronic kidney disease Primary hypertension Chronic fatigue VITAMIN D, 25-HYDROXY Routine 01/27/2024 Stage 3b chronic kidney disease Primary hypertension Chronic fatigue PTH Routine 01/27/2024 Stage 3b chronic kidney disease Primary hypertension Chronic fatigue BASIC METABOLIC PANEL Routine 01/27/2024 Stage 3b chronic kidney disease Primary hypertension Chronic fatigue PROTEIN/CREATININE RATIO, URINE Routine 01/27/2024 Stage 3b chronic kidney disease Primary hypertension Chronic fatigue CBC (WITH DIFF) Routine 01/27/2024 Stage 3b chronic kidney disease Primary hypertension Chronic fatigue from Last 3 Months Results * (ABNORMAL) Urinalysis Microscopic (02/03/2024 11:17 AM EST) Bacteria, Urine None None /HPF 1:32 PM [facility] Calcium Phosphate Crytals, Urine Rare(A) None /HPF 02/03/2024 1:32 PM EST [facility] RBC, Urine 1 0 - 4 /HPF 02/03/2024 1:32 PM EST [facility] WBC, Urine 2 0 - 5 /HPF 02/03/2024 1:32 PM EST [facility] Squamous Epithelial Cells, Urine 1 0 - 5 /HPF 02/03/2024 1:32 PM EST [facility] Hyaline Casts, Urine 0 0 - 2 /LPF 02/03/2024 1:32 PM EST [facility] Comment 02/03/2024 1:32 PM EST [facility] Comment:Interpret results wi th caution, microscopic results are from a suboptimal specimen. Urine URINE SPECIMEN OBTAINED BY CLEAN CATCH PROCEDURE / Unknown Non Blood Collection / Unknown 02/03/2024 11:17 AM EST 02/03/2024 12:50 PM EST Deborah Richardson APRN URINE ORDERABLES [facility] [place] [address] * Urinalysis Microscopic Exam (02/03/2024 11:17 AM EST) Urine Non Blood Collection / Unknown 02/03/2024 11:17 AM EST 02/03/2024 12:50 PM EST Deborah Richardson CUSTOMER COUNTER REPRESENTATIVE URINE ORDERABLES [facility] [place] [address] * (ABNORMAL) Urinalysis Dipstick (02/03/2024 11:17 AM EST) Glucose, Urine Dipstick Negative Negative 02/03/2024 1:32 PM [facility] Protein, Urine Dipstick Negative Negative 02/03/2024 1:32 PM [facility] Bilirubin, Urine Dipstick Negative Negative 02/03/2024 1:32 PM [facility] Comment:Clinical correlation required for positive Urine Bilirubin results as false positive may occur with some drugs and drug related products. If a false positive is suspected a serum total bilirubin should be considered if clinically indicated. Urobilinogen, Urine Dipstick Normal Normal, 0.2 mg/dL, 1.0 mg/dL 02/03/2024 1:32 PM [facility] pH, Urine (dipstick) 6.0 5.0 - 8.0 02/03/2024 1:32 PM [facility] Blood, Urine Dipstick Trace(A) Negative 02/03/2024 1:32 PM [facility] Ketone, Urine Dipstick Negative Negative 02/03/2024 1:32 PM [facility] Nitrite, Urine Dipstick Negative Negative 02/03/2024 1:32 PM [facility] Leukocytes, Urine Dipstick Trace(A) Negative 02/03/2024 1:32 PM [facility] Specific [place] Urine Automated 1.009 1.005 - 1.030 02/03/2024 1:32 PM EST [facility] Appearance, Urine Dipstick Clear Clear 02/03/2024 1:32 PM EST [facility] Color, Urine Dipstick Yellow Yellow, Dark Yellow 02/03/2024 1:32 PM EST [facility] CULTURE ADDED? 02/03/2024 1:32 PM EST [facility] Urine Non Blood Collection / Unknown 02/03/2024 11:17 AM EST 02/03/2024 12:50 PM EST Deborah Richardson APRN URINE ORDERABLES Performing Organization Address [facility]/ZIP Co de Phone Number [facility] [place] [address] * Urine culture (02/03/2024 11:17 AM EST) Urine Culture 50,000-99,0 00 cfu/ml normal mucosal claire 02/04/2024 3:04 PM EST [facility] Comment:Susceptibility testi ng not routinely performed for Coagulase Negative Staphylococcus species and other Gram Positive organisms from urine. Urine URINE SPECIMEN OBTAINED BY CLEAN CATCH PROCEDURE / Unknown Non Blood Collection / Unknown 02/03/2024 11:17 AM EST 02/03/2024 12:50 PM EST Deborah Richardson APRN MICROBIOLOGY - GENE RAL ORDERABLES Performing Organization Address City/[facility]/ZIP Co de Phone Number [facility] [place] [address] * PTH (01/27/2024) PTH - External 52.8 Blood VENOUS BLOOD SPECIMEN / Unknown 01/27/2024 Kwame Day MD CHEMISTRY ORDERABLES * Scan Doc: Lab (01/27/2024 12:00 AM EST) Only the most recent of2 resultswithin the time period is included. Narrative 01/27/2024 12:00 AM EST Ordered by an unspecified provider. Scanning Provider MEDIA MGR SCAN EXT O RDR/RSLT * Protein/Creatinine Ratio, urine (01/27/2024) Creatinine, Urine - External 62.0 Protein, Urine Ran - External 4.4 Prot/Cre Ratio - External 0.10 Urine URINE SPECIMEN / Unknown 01/27/2024 Kwame Day MD URINE ORDERABLES * U Albumin/Cre Ratio (01/27/2024) Alb/Cr Ratio, Random - External <0.50 Albumin, Urine - External <7.0 Creatinine, Urine - External 62.0 Urine URINE SPECIMEN / Unknown 01/27/2024 Kwame Day MD URINE ORDERABLES * Vitamin D, 25-Hydroxy (01/27/2024) 25-OH Vit D Total - External 48.0 Blood VENOUS BLOOD SPECIMEN / Unknown 01/27/2024 Kwame Day MD CHEMISTRY ORDERABLES * CBC (with Diff) (01/27/2024) WBC - External 5.7 RBC - External 4.51 Hemoglobin - External 13.4 Hematocrit - External 40.5 MCV - External 89.8 MCH - External 29.7 MCHC - External 33.1 RDWCV - External 13.9 Platelets - External 226 MPV - External 9.7 Blood VENOUS BLOOD SPECIMEN / Unknown 01/27/2024 Kawme Day MD HEMATOLOGY ORDERABLE S * Albumin Level (01/27/2024) Albumin - External 4.2 Blood VENOUS BLOOD SPECIMEN / Unknown 01/27/2024 Kwame Day MD CHEMISTRY ORDERABLES * Basic Metabolic Panel Non-fasting (01/27/2024) Glucose Lvl - External 99 Blood Urea Nitrogen - External 22 Creatinine - External 1.50 EGFR - External 38 BUN/Creatinine Ratio - External 14.7 Sodium - External 138 Potassium - External 3.9 Chloride - External 106 CO2 - External 26 Calcium - External 9.0 Anion Gap - External 6.0 Blood VENOUS BLOOD SPECIMEN / Unknown 01/27/2024 Kwame Day MD CHEMISTRY ORDERABLES from Last 3 Months Advance Directives Documents on File Type Date Recorded Patient Project Surveyor Expl anation Advance Directives and Livin g Will 06/07/2019 2:18 PM Advance Directives and Livin g Will 05/27/2019 10:18 AM * Full Code (Latest Code Status on File) Date Activated Date Inactivated Comments 07/13/2019 3:29 AM 07/13/2019 7:35 PM Question Answer Comments Does patient have capacity to make decision: Yes Care Teams Lemon Picker Relationship Specialty Start Date End Date Christel Arndt [address] [place] [address] PCP - General Family Medicine 06/28/22
--- OUTSIDE RECORDS SUMMARY | 2024-03-04 21:49 | XMS_ITS | Encounter Summary ---
Author Organization [facility] [place] [address] Care Team Providers Care University Relations Director Name Role Phone Christel Arndt Primary Care Provider [phone] Encounter Details Date Type Department Care Team (Late st Contact Info) Description 12/17/2022 [place] [phone] Rajwinder Del Cid APRN [facility] [place] [address] Stage 3b chronic kidney disease Social History [...] 10:15 AM EST Office Visit Audiology at [address] [phone] Anna Hernandez, PhD [facility] [address] 08/03/2024 10:00 AM EDT [place] [address] Deborah Richardson APRN [facility] [place] [address] documented as of this encounter Visit Diagnoses Diagnosis Stage 3b chronic kidney disease documented in this encounter Care Teams University Relations Director Relationship Specialty Start Date End Date Christel Arndt [address] [place] [address] PCP - General Family Medicine 06/28/22 documented as of this encounter
--- OUTSIDE RECORDS SUMMARY | 2024-03-04 21:49 | XMS_ITS | Encounter Summary ---
Author Organization [facility] [place] [address] Care Team Providers Care Cable Cutter And Swager Name Role Phone Christel Arndt Primary Care Provider Encounter Details Date Type Department Care Team ([facility] Contact Info) Description 07/05/2022 Telephone [place] [address] Kwame Day MD [facility] [place] [address] Social History Tobacco Use Types Packs/Day Years [...] Encounters Date Type Department Care Team (Late Contact Info) Description 03/16/2024 10:15 AM EST Office Visit Audiology at [address] [phone] Anna Hernandez, PhD [facility] [place] [address] 08/03/2024 10:00 AM EDT [place] [phone] Deborah Richardson, [employer] FARMER [facility] [place] [address] documented as of this encounter Visit Diagnoses Not on filedocumented in this encounter Care Teams Cable Cutter And Swager Relationship Specialty Start Date End Date Christel Arndt [address] [place] [address] PCP - General Family Medicine 06/28/22 documented as of this encounter
--- OUTSIDE RECORDS SUMMARY | 2024-03-04 21:49 | XMS_ITS | Encounter Summary ---
Author Organization [facility] [place] [address] Care Team Providers Care Show Host/Hostess Name Role Phone MilkaSherwinChristel Primary Care Provider Encounter Details Date Type Department Care Team (Latest Contact Info) Description 12/25/2022 10:30 AM EST Office Visit Nephrology [place] [address] Kwame Day MD [facility] [place] [address] Stage 3b chronic kidney disease; Primary hypertension [...] antianxiety. Cis Free Text Allergy multiple foods. [place] Corticosteroids (Glucocorticoids) Cranberry Fruit Dog Dander Erythromycin [...] D2-Soybean] Stone Fruit Other reaction(s): Unknown Tiotropium [place] Tree And Shrub Pollen Other reaction(s): Unknown Tree Nut Peanuts and products/all nuts and oils Tree Nuts [place] Pollen Other reaction(s): Unknown PHYSICAL EXAM: Last [...] Urine reviewed personally in the nephrology - alexis. #CKD Stage 3B A1 -Etiology of [...] 30 minutes was spent for reviewing chart, [id number] encounter, ordering labs/medication,documentation in the chart, and coordinating care. RTC 6 month CC-Christel Blanc-Sherwin Day MD 12/25/2022 Hypertension-Nephrology documented in this encounter Plan of Treatment Upcoming Encounters Date Type Department Care Team (Late st Contact Info) Description 03/16/2024 10:15 AM EST Office Visit Audiology at [address] [phone] Anna Hernandez, PhD [facility] [place] [address] 08/03/2024 10:00 AM EDT Office [place] [address] Deborah Richardson APRN [facility] [place] [address] documented as of this encounter Results * Vitamin D, 25-Hydroxy (06/24/2023 9:41 AM EDT) Vitamin D Total 25 OH 46 21 - 100 ng/mL [facility] Vit D Interp Sufficient [facility] Blood 06/24/2023 9:41 AM EDT 06/24/2023 10:01 AM EDT Narrative Resulting Agency Comment Spec In Lab Kwame Day MD CHEMISTRY ORDERABLES [facility] [place] [address] * PTH (06/24/2023 9:41 AM EDT) Parathyroid Hormone 49 15 - 65 pg/mL [facility] Blood 06/24/2023 9:41 AM EDT 06/24/2023 10:02 AM EDT Narrative Resulting Agency Comment Spec In Lab Kwame Day MD CHEMISTRY ORDERABLES Performing Organization Address [facility]/[place] Co de Phone Number [facility] [place] [address] * Albumin Level (06/24/2023 9:41 AM EDT) Albumin 4.2 3.2 - 5.2 g/dL [facility] Blood 06/24/2023 9:41 AM EDT 06/24/2023 10:01 AM EDT Narrative Resulting Agency Comment Spec In Lab Kwame Day MD CHEMISTRY ORDERABLES Performing Organization Address [facility]/[place] Co de Phone Number [facility] [place] [address] * (ABNORMAL) Basic Metabolic Panel (non-fasting) (06/24/2023 9:41 AM EDT) Glucose 78 65 - 199 mg/dL [facility] Comment:Diabetes: >=200 mg/d L plus symptoms Blood Urea Nitrogen 18 8 - 18 mg/dL [facility] Creatinine 1.36(H) 0.70 - 1.20 mg/dL [facility] Sodium 145 135 - 145 mmol/L [facility] Potassium 4.5 3.5 - 5.0 mmol/L [facility] Comment: Please note: ??Patients with WBC >100,000 may have falsely elevated Potassium levels. ??For accurate Potassium quantification in these patients send serum separator tube (gold top) for subsequent determinations. ??Contact the Clinical Chemistry Laboratory if there are any questions. Chloride 108(H) 98 - 107 mmol/L [facility] Carbon Dioxide 27 22 - 31 mmol/L [facility] Anion Gap 10 5 - 15 mmol/L [facility] Calcium 9.4 8.5 - 10.5 mg/dL [facility] Est Glomerular Filtration Rate 43(L) >=60 mL/min/1. 73 m?? [facility] Comment: This patient's estimated GFR [...] Day MD CHEMISTRY ORDERABLES Performing Organization Address City/State/[place] Co de Phone Number [facility] [place] [address] * Protein/Creatinine Ratio, urine (06/24/2023 9:38 AM EDT) Creatinine, Urine 21 mg/dL [facility] Protein, Urine <6 0 - 12 mg/dL [facility] Protein / Creatinine Ratio, Urine <0.3 ratio [facility] Urine 06/24/2023 9:38 AM EDT 06/24/2023 9:56 AM EDT Narrative Resulting Agency Comment Spec In Lab Kwame Day MD URINE ORDERABLES [facility] [place] [address] * U Albumin/Cre Ratio (06/24/2023 9:38 AM EDT) Albumin / Creatinin Ratio, Urine Not Calculated 0 - 29 mcg/mg Cr [facility] Comment: Reference Ranges: <30 mcg/mg: [...] by Sharyn Trivedi Albumin, Urine <3.0 mg/L [facility] Comment:Corrected from <3.0 mg/L [NA] on 06/24/23 11:05:43 EDT by Sharyn Trivedi Creatinine, Urine 21 mg/dL [facility] Urine 06/24/2023 9:38 AM EDT 06/24/2023 9:56 AM EDT Narrative Resulting Agency Comment Spec In Lab Kwaem Day MD URINE ORDERABLES [facility] [place] [address] documented in this encounter Visit Diagnoses Diagnosis Stage 3b chronic kidney disease Primary hypertension Unspecified essential hypertension documented in this encounter Care Teams Show Host/Hostess Relationship Specialty Start Date End Date Christel Arndt [address] [place] [address] PCP - General Family Medicine 06/28/22 documented as of this encounter
--- OUTSIDE RECORDS SUMMARY | 2024-03-04 21:49 | XMS_ITS | Encounter Summary ---
Author Organization [facility] [place] [address] Care Team Providers Care Filament Tester Name Role Phone Christel Arndt Primary Care Provider Encounter Details Date Type Department Care Team (Latest Contact Info) Description 10/09/2022 11:42 AM EDT - 10/09/2022 11:59 PM EDT Hospital Encounter XRay at [address] [place] [address] Robert Villela MD [facility] [place] [address] Pain in left hip; Pain in right [...] Tablet Take 10 mg by mouth daily. albuteroL (Proventil) 2.5 mg [...] 20 mg by mouth as needed. 12/25/2022 TURMERIC ORAL Take 3 capsules by mouth daily. 11/05/2023 cholecalciferol, Vitamin D3, 10 mcg (400 unit) Capsule Vitamin D3 with k2 1000iu and k2 100mcg 12/25/2022 documented as of this encounter Plan of Treatment Upcoming Encounters Date Type Department Care Team (Late st Contact Info) Description 03/16/2024 10:15 AM EST Office Visit Audiology at [address] [phone] Anna Hernandez, PhD [facility] [place] [address] 08/03/2024 10:00 AM EDT Office [place] [phone] Deborah Richardson, FREIGHT LOADER [facility] [place] [address] documented as of this encounter Procedures Procedure [...] who have questions please contact the health healthcare management that requested your imaging first. ? Narrative [...] patients who have questions please contactthe health healthcare management that requested your imaging first. Robert Villela MD IMG DX ORDERABLES documented in this encounter Visit Diagnoses Diagnosis Pain in left hip Pain in joint, pelvic region and thigh Pain in right hip Pain in joint, pelvic region and thigh documented in this encounter Care Teams Filament Tester Relationship Specialty Start Date End Date Jayashree-Christel Courtney [address] [place] [id number] PCP - General Family Medicine 06/28/22 documented as of this encounter
--- OUTSIDE RECORDS SUMMARY | 2024-03-04 21:49 | XMS_ITS | Encounter Summary ---
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 imaging Moira Covarrubias MD [address] [place] [id number] [facility] [place] [address] Referral ID Status Reason Start Date Expiration Date V isits Requested Visits Authorized [id number] Closed Consult, Test & Treat PCP Updated and/or Approved 04/16/2022 04/16/2023 1 1 Encounter Details Date Type Department Care Team (Late st Contact Info) Description 08/21/2022 11:00 AM EDT Office Visit [place] [address] Robert Villela MD [facility] [place] [address] Other spondylosis with radiculopathy, lumbar region (Primary [...] Villela MD - 08/21/2022 11:00 AM EDT [facility] Initial Consultation Note Name: Ruthann Wolf : 1955 Consulting Physician: Seeing at the request of Moira Capone MD [address] [place] [id number] Chief Complaint: Neck, mid-thoracic back, and lower [...] The only L-spine images available are through [facility]. Her L-spine xrays are from 2018: Findings: [...] been actively engaged in Physical therapy at [facility] within the last 6 months [...] Medications: NONE Helpful? N/A Other Treatment: Acupuncture, Carpentry Supervisor Helpful? Yes History of Interventional Procedures/Surgery: Prior Surgery: No Injection History (date, procedure, %improvement): None Chart review: Today I have reviewed available medical information in the patient's medical record at [facility] including relevant provider notes, laboratory work, and [...] antianxiety. Cis Free Text Allergy multiple foods. 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 Legal [...] up) MRI was completed on 07/13/[address] [facility]. In addition to the formal radiology read, [...] Attending Physician [facility] [place] [address] / ADD: T-spine and L-spine X-ray on 08/21/[address] [facility]: IMPRESSION 1. No vertebral body compression fracture or other acute abnormality. 2. Mild upper to mid thoracic spondylosis with slightly exaggerated kyphosis. 3. Multilevel lumbar spondylosis and facet osteoarthropathy without radiographic finding of dynamicinstability, using a 4 mm threshold for abnormal translation. CC: Moira Capone MD [address] [place] [phone] documented in this encounter Plan of Treatment Upcoming Encounters Date Type Department Care Team (Late st Contact Info) Description 03/16/2024 10:15 AM EST Office Visit Audiology at [address] [phone] Anna Hernandez, PhD [facility] [place] [address] 08/03/2024 10:00 AM EDT [place] [phone] Deborah Richardson, NETWORK LIAISON [facility] [place] [address] Scheduled Referrals Name Type Priority Associated Diagnoses [...] who have questions please contact the health assisted living care manager that requested your imaging first. ? Electronically signed by: Elida Paez MD, [facility] ([phone]), at 08/21/2022 3:36 PM Narrative 08/21/2022 3:36 PM EDT EXAMINATION: XR LUMBAR SPINE 2 OR 3 VIEWS (GENERIC), XR THORACIC SPINE 2 VIEWS CLINICAL HISTORY: 67 yo F with h/o osteoporosis, midthoracic and lower back pain radiating to B hips L>R. Please obtain AP and lat flex/ ext Xrays r/o dynamic instability ??and r/o VCF (accession [id number]), r/o vertebral compression fracture (accession [id number]) TECHNIQUE: AP, lateral flexion and extension standing [...] r/o dynamic instability and r/o VCF (accession [id number]), r/o vertebral compression fracture (accession [id number]) TECHNIQUE: AP, lateral flexion and extension standing [...] patients who have questions please contactthe health assisted living care manager that requested your imaging first. [...] who have questions please contact the health assisted living care manager that requested your imaging first. ? Electronically signed by: Elida Paez MD, [facility] ([phone]), at 08/21/2022 3:36 PM Narrative 08/21/2022 3:36 PM EDT EXAMINATION: XR LUMBAR SPINE 2 OR 3 VIEWS (GENERIC), XR THORACIC SPINE 2 VIEWS CLINICAL HISTORY: 67 yo F with h/o osteoporosis, midthoracic and lower back pain radiating to B hips L>R. Please obtain AP and lat flex/ ext Xrays r/o dynamic instability ??and r/o VCF (accession [id number]), r/o vertebral compression fracture (accession [id number]) TECHNIQUE: AP, lateral flexion and extension standing [...] r/o dynamic instability and r/o VCF (accession [id number]), r/o vertebral compression fracture (accession [id number]) TECHNIQUE: AP, lateral flexion and extension standing [...] patients who have questions please contactthe health assisted living care manager that requested your imaging first. [...] region documented in this encounter Care Teams Trap Puller Relationship Specialty Start Date End Date Christel Arndt [address] [place] [address] PCP - General Family Medicine 06/28/22 documented as of this encounter
--- OUTSIDE RECORDS SUMMARY | 2024-03-04 21:49 | XMS_ITS | Encounter Summary ---
Author Organization [facility] [address] Care Team Providers Care Assistant Head Cashier Name Role Phone Christel Arndt Primary Care Provider [phone] Encounter Details Date Type Department Care Team (Late st Contact Info) Description 08/12/2023 Telephone [place] [phone] Tosha Leal, ARLINE Social History Tobacco Use [...] 10:15 AM EST Office Visit Audiology at [address] [phone] Anna Hernandez, PhD [facility] [place] [address] 08/03/2024 10:00 AM EDT [place] [address] Deborah Richardson [facility] [address] documented as of this encounter Visit Diagnoses Not on filedocumented in this encounter Care Teams Assistant Head Cashier Relationship Specialty Start Date End Date Christel Arndt [address] [place] [address] PCP - General Family Medicine 06/28/22 documented as of this encounter
--- OUTSIDE RECORDS SUMMARY | 2024-03-04 21:49 | XMS_ITS | Encounter Summary ---
Author Organization [facility] [place] [address] Care Team Providers Care Optics Engineer Name Role Phone MilkaSherwinChristel Primary Care Provider Encounter Details Date Type Department Care Team (Latest Contact Info) Description 06/28/2022 2:30 PM EDT Laboratory Appointment Lab [address]L [place] [phone] Stage 3b chronic kidney disease Social History [...] 10:15 AM EST Office Visit Audiology at [address] [phone] Anna Hernandez, PhD [facility] [place] [address] 08/03/2024 10:00 AM EDT [place] [address] BegnoDeborah ballesteros APRN [facility] [place] [address] documented as of this encounter Procedures Procedure Name Priority Date/Time Associated Diagnosis Comments U ALBUMIN/CRE RATIO Routine 06/28/2022 3 :19 PM EDT Stage 3b chronic kidney disease PTH Routine 06/28/2022 2:35 PM EDT Stage 3b chronic kidney disease HEMOGRAM Routine 06/28/2022 2:35 PM EDT Stage 3b chronic kidney disease DIFFERENTIAL, AUTOMATED Routine 06/28/2022 2:35 PM EDT Stage 3b chronic kidney disease HC CBC,PLT & AUTO DIFF Routine 06/28/2022 2:35 PM EDT Stage 3b chronic kidney disease ALBUMIN LEVEL Routine 06/28/2022 2:35 PM EDT Stage 3b chronic kidney disease BASIC METABOLIC PANEL Routine 06/28/2022 2:35 PM EDT Stage 3b chronic kidney disease documented in this encounter Results * U Albumin/Cre Ratio (06/28/2022 3:19 PM EDT) Albumin / Creatinin Ratio, Urine Not Calculated 0 - 29 mcg/mg Cr [facility] Comment: Reference Ranges: <30 mcg/mg: Normal [...] [employer] Supplements (2012) 2, 357? 362 Albumin, Urine <3.0 mg/L [facility] Creatinine, Urine 67 mg/dL [facility] Urine 06/28/2022 3:19 PM EDT 06/28/2022 3:35 PM EDT Narrative Resulting Agency Comment Spec In Lab Kwame Day MD URINE ORDERABLES Performing Organization Address City/[facility]/[place] [address] * Differential, Automated (06/28/2022 2:35 PM EDT) Neutrophil % 54.0 % [facility] Neutrophil Absolute 4.08 1.70 - 6.10 x10(3)/[facility] Lymph % 35.3 % [facility] Lymphocytes Abs 2.7 0.9 - 3.2 x10(3)/[facility] Monocyte % 7.8 % [facility] Monocyte Abs 0.6 0.3 - 0.9 x10(3)/[facility] Eos % 2.0 % [facility] Eosinophils Abs 0.2 0.0 - 0.4 x10(3)/[facility] Basophil % 0.5 % [facility] Baso Absolute 0.0 0.0 - 0.1 x10(3)/[facility] Immature Gran % 0.40 % [facility] Comment: Immature granulocytes(IG's)percentage and absolute count will include metamyelocytes, myelocytes, and promyelocytes. Blood smears from CBCs yielding IG's will be scanned manually for concordance. If this scan disagrees with the automated IG or if promyelocytes are noted, a manual differential will be performed. Immature Gran Absolute 0.03 0.00 - 0.04 x10(3)/[facility] Blood 06/28/2022 2:35 PM EDT 06/28/2022 2:45 PM EDT Narrative Resulting Agency Comment Spec In Lab Kwame Day MD HEMATOLOGY ORDERABLE S Performing Organization Address [facility]/[place] [address] * Hemogram (06/28/2022 2:35 PM EDT) White Blood Cell 7.6 4.0 - 9.5 x10(3)/[facility] Red Blood Cell 4.27 4.00 - 5.21 x10(6)/[facility] Hemoglobin 12.2 11.7 - 15.5 g/dL [facility] Hematocrit 37.3 35.7 - 45.8 % [facility] Mean Cell Volume 87.4 82.6 - 94.4 fL [facility] Mean Cell Hemoglobin 28.6 27.1 - 32.0 pg [facility] Mean Cell Hemoglobin Concentration 32.7 31.7 - 35.0 g/dL [facility] Platelet 215 145 - 357 x10(3)/[facility] RDW Standard Deviation 41.4 37.0 - 46.0 fL [facility] RDW coefficient of variation 13.1 11.5 - 14.1 % [facility] Mean Platelet Volume 11.4 7.6 - 12.9 fL [facility] NRBC% auto 0.0 % [facility] NRBC Absolute 0.000 0.000 - 0.000 x10(3)/[facility] Blood 06/28/2022 2:35 PM EDT 06/28/2022 2:45 PM EDT Narrative Resulting Agency Comment Spec In Lab Kwame Day MD HEMATOLOGY ORDERABLE S [facility] [place] [address] * (ABNORMAL) Basic Metabolic Panel (non-fasting) (06/28/2022 2:35 PM EDT) Glucose 102 65 - 199 mg/dL [facility] Comment:Diabetes: >=200 mg/d L plus symptoms Blood Urea Nitrogen 18 8 - 18 mg/dL [facility] Creatinine 1.62(H) 0.70 - 1.20 mg/dL [facility] Sodium 140 135 - 145 mmol/L [facility] Potassium 3.7 3.5 - 5.0 mmol/L [facility] Comment: Please note: ??Patients with WBC >100,000 may have falsely elevated Potassium levels. ??For accurate Potassium quantification in these patients send serum separator tube (gold top) for subsequent determinations. ??Contact the Clinical Chemistry Laboratory if there are any questions. Chloride 105 98 - 107 mmol/L [facility] Carbon Dioxide 26 22 - 31 mmol/L [facility] Anion Gap 9 5 - 15 mmol/L [facility] Calcium 9.2 8.5 - 10.5 mg/dL [facility] Est Glomerular Filtration Rate 35(L) >=60 mL/min/1. 73 m?? [facility] Comment: This patient's estimated GFR was [...] Day MD CHEMISTRY ORDERABLES Performing Organization Address [facility]/[place] Co de Phone Number [facility] [place] [address] * PTH (06/28/2022 2:35 PM EDT) Parathyroid Hormone 44 15 - 65 pg/mL [facility] Blood 06/28/2022 2:35 PM EDT 06/28/2022 2:46 PM EDT Narrative Resulting Agency Comment Spec In Lab Kwame Day MD CHEMISTRY ORDERABLES Performing Organization Address [facility]/[place] Co de Phone Number [facility] [place] [address] * Albumin Level (06/28/2022 2:35 PM EDT) Albumin 4.1 3.2 - 5.2 g/dL [facility] Blood 06/28/2022 2:35 PM EDT 06/28/2022 2:45 PM EDT Narrative Resulting Agency Comment Spec In Lab Kwame Day MD CHEMISTRY ORDERABLES [facility] [place] [address] documented in this encounter Visit Diagnoses Diagnosis Stage 3b chronic kidney disease documented in this encounter Care Teams Optics Engineer Relationship Specialty Start Date End Date Christel Arndt [address] [place] [address] PCP - General Family Medicine 06/28/22 documented as of this encounter
--- OUTSIDE RECORDS SUMMARY | 2024-03-04 21:49 | XMS_ITS | Encounter Summary ---
Author Organization [facility] [place] [address] Care Team Providers Care Industrial Cleaning Technician Name Role Phone Moira Covarrubias MD Primary Care Provider [phone] Encounter Details Date Type Department Care Team [...] 10:15 AM EST Office Visit Audiology at [address] [phone] Anna Hernandez, PhD [facility] [place] [address] 08/03/2024 10:00 AM EDT [place] [phone] Deborah Richardson DIRECTOR OF PLACEMENT [facility] [place] [address] documented as of this encounter Visit Diagnoses Not on filedocumented in this encounter Care Teams Industrial Cleaning Technician Relationship Specialty Start Date End Date Moira Covarrubias MD PCP - General Family Medicine 07/17/21 06/27/22 documented as of this encounter
--- OUTSIDE RECORDS SUMMARY | 2024-03-04 21:49 | XMS_ITS | Encounter Summary ---
Author Organization [facility] [place] [address] Care Team Providers Care Middle School History Teacher Name Role Phone Christel Arndt Primary Care Provider Encounter Details Date Type Department Care Team (Late st Contact Info) Description 08/06/2023 External Results Nephrology [place] [phone] Maria Elena Acosta CMA Social History Tobacco [...] 10:15 AM EST Office Visit Audiology at [address] [phone] Anna Hernandez, PhD [facility] [place] [address] 08/03/2024 10:00 AM EDT Office [place] [phone] Deborah Richardson, RN [facility] [place] [place] [address] documented as of this encounter Procedures Procedure Name Priority Date/Time Associated Diagnosis Comments BASIC METABOLIC PANEL Routine 07/31/2023 documented in this encounter Results * Basic Metabolic Panel (non-fasting) (07/31/2023) Glucose 74 Blood Urea Nitrogen 17 Creatinine 1.6 Est Glomerular Filtration Rate 35.13 Sodium 143 Potassium 4.2 Chloride 108 Carbon Dioxide 27 Calcium 8.8 Anion Gap 8 Blood 07/31/2023 Historical Provider CHEMISTRY ORDERAB LES documented in this encounter Visit Diagnoses Not on filedocumented in this encounter Care Teams Middle School History Teacher Relationship Specialty Start Date End Date Christel Arndt [address] [place] [address] PCP - General Family Medicine 06/28/22 documented as of this encounter
--- OUTSIDE RECORDS SUMMARY | 2024-03-04 21:49 | XMS_ITS | Encounter Summary ---
Author Organization [facility] [place] [address] Care Team Providers Care Public Administration Professor Name Role Phone Christel Arndt Primary Care [...] AM EST Office Visit Audiology at [address] [phone] Anna Hernandez, PhD [facility] [place] [address] 08/03/2024 10:00 AM EDT Office [place] [phone] Deborah Richardson [employer] [facility] [place] [address] documented as of this encounter Visit Diagnoses Not on filedocumented in this encounter Care Teams Public Administration Professor Relationship Specialty Start Date End Date Christel Arndt [address] [place] [address] PCP - General Family Medicine 06/28/22 documented as of this encounter
--- OUTSIDE RECORDS SUMMARY | 2024-03-04 21:49 | XMS_ITS | Encounter Summary ---
Author Organization [facility] [place] [address] Care Team Providers Care Business Strategist Name Role Phone JayashreeAryaChristel Primary Care Provider Encounter Details Date Type Department Care Team (Latest Contact Info) Description 02/03/2024 9:30 AM EST Office Visit Neph[place] [address] Kwame Day MD [facility] [place] [address] Stage 3b chronic kidney disease; Primary hypertension; Chronic fatigue Social History Tobacco Use Types [...] Sign Reading Time Taken Comments Blood Pressure 135/74 02/03/2024 9:13 AM EST Pulse 78 02/03/2024 9:13 AM EST Temperature - - Respiratory Rate - - Oxygen Saturation - - Inhaled Oxygen Concentration - - Weight 68 kg (150 lb) 02/03/2024 9:13 AM EST Height 172.7 cm (5' 8) 02/03/2024 9:13 AM EST Body Mass Index 22.81 02/03/2024 9:13 AM EST documented in this encounter Patient Instructions * Patient Instructions* Kwame Day MD - 02/03/2024 9:30 AM EST Can try sodium bicarbonate ( baking soda ) with water, but not more 1/4 teaspoon a day for acid reflux. Check blood pressure at home in the morning, before taking any blood pressure medications, empty bladder, resting comfortably on a chair, back resting, feet on the floor, hands resting on a table, ideally before taking any coffee or tea and keep a log. Please take a multivitamin. Primary physician can consider weekly bisphosphonate for osteoporosis but recommend reducing the dose by 50%. documented in this encounter Progress Notes * Kwame Day MD - 02/03/2024 9:30 AM EST HYPERTENSION/ NEPHROLOGY PROGRESS NOTE PATIENT: Ruthann Guido : 1955 REASON FOR CONSULTATION: Consulted for renal insufficiency. ID: Ruthann Guido is a very pleasant 69 y.o. female seen in clinic for renal insufficiency. The reason for her renal insufficiency was unknown. Her kidney function has been relatively stable for the past 10 years and did not have any proteinuria. GERD - more than 10 years and has been on pantoprazole. She has a history of Wisdom's esophagus. She does not have DM. She says her blood pressures have been always in the normal range and does not have any hypertension , but is on eplerenone, which has been changed to spironolactone for central serous chorioretinopathy and is being followed up by her developmental psychologist All parties consented to the use of PO to document this visit. History of Present Illness The patient is a 69-year-old female with a past medical history of central serous chorioretinopathy, gastroesophageal reflux disease (GERD), asthma, chronic kidney disease (CKD) stage 3B A1, and interstitial cystitis, presenting for evaluation of renal insufficiency. She is currently being evaluated in the nephrology clinic for renal insufficiency associated with CKD stage 3B A1. The etiology of her CKD remains undetermined but has been stable for many years. Hermost recent serum creatinine level on January 27, 2024, was 1.50 mg/dL with an estimated glomerular filtration rate (eGFR) of 38 mL/min/1.73 m??, and her creatinine levels have remained relatively stable over the past few years. She is currently taking vitamin D3 at a dose of 4000 units daily and magnesium supplements. Her 25- hydroxy vitamin D level was 48 ng/mL, which is within normal limits, and her parathyroid hormone (PTH) level was 52 pg/mL, which is at the target level. The patient reports frequent asthma exacerbations and is attempting to contact her transition teacher. She notes that her symptoms are typically less severe during the winter months. She contracted COVID-19 in October 2023, which she believes may have exacerbated her current symptoms. She experiences coughing but does not report any nocturnal coughing or sleep disturbances. She also reports occasional postnasal drip. The patient has osteoporosis and has experienced dental pain in multiple teeth over the past six months. She is not currently on any medication for her osteoporosis due to a fear of adverse reactions. She maintains an active lifestyle, including participating in [employer] three times a week. She has GERD and is currently taking pantoprazole twice daily. She recently underwent an esophagogastroduodenoscopy (EGD) at [facility] for esophageal dilation due to stricture. She has a history of Wisdom's esophagus. The patient has interstitial cystitis and is under the care of a urologist. She has a past medical history of central serous chorioretinopathy and is currently taking spironolactone 25 mg. She was initially prescribed eplerenone but was switched to spironolactone due to lackof efficacy. She reports improvement with spironolactone. MEDICATIONS - Eplerenone - Pantoprazole - Vitamin D3 - Magnesium - Spironolactone Blood pressure 135/74, pulse 78, height 172.7 cm (5' 8), weight 68 kg (150 lb). Physical Exam Lungs are clear. No wheezing or crackles heard. Heart sounds are regular. There is mild swelling in the legs. Results - Laboratory Studies: - Creatinine: 1.50 - EGFR: 38 - Potassium: 3.9 (within normal limits) - Vitamin D: 48 - PTH: 52 - Hemoglobin: 13.4 - White count: 5.7 - Platelet counts: within normal limits Assessment & Plan Chronic Kidney Disease Stage 3B A1 - Etiology remains unknown, creatinine levels stable for many years - No evidence of albuminuria or proteinuria - Continues spironolactone 25 mg for central serous chorioretinopathy (prescribed by developmental psychologist) - Home blood pressure readings stable - Sodium, potassium, and calcium levels within normal limits - PTH suppressed - Not anemic, stable hemoglobin levels - Iron supplements can be discontinued (deferred to PCP) - Potential benefit from statin for cardiovascular protection (deferred to PCP) - Continue current regimen of 4000 units of vitamin D daily - Regular exercise, including core strengthening exercises, recommended - Take a multivitamin - Follow up with PCP regularly Asthma - Symptoms acting up, trying to contact transition teacher - Experiences coughing, no nighttime coughing or sleep disturbances - Continue monitoring symptoms and follow up with transition teacher Osteoporosis - Concerned about long-term medications due to potential side effects - PCP to consider bisphosphonates at 50% of regular dose (35 mg weekly) - Ensure adequate hydration to prevent kidney stones - Continue current exercise regimen, including ballet and core strengthening exercises Gastroesophageal Reflux Disease (GERD) - Follows up with concessionist, recent esophageal stricture dilation - History of Wisdom's esophagus, on pantoprazole twice a day - Discussed potential for long-term PPI use to cause chronic renal insufficiency - Take small doses of sodium bicarbonate mixed in water for GERD (not to exceed 1/4 teaspoon per day) - Can take Tums if needed (not more than one a day due to high calcium content) Interstitial Cystitis - Follows up with urology, no changes in current management plan Central Serous Chorioretinopathy - On spironolactone 25 mg (prescribed by developmental psychologist), reports improvement Follow-up - Patient to follow up in 6 months PROCEDURE The patient recently underwent an endoscopy at [facility] for esophageal dilation due to stricture. A total of 40 minutes was spent for reviewing chart, [id number] encounter, ordering labs/medication,documentation in the chart, and coordinating care. documented in this encounter Plan of Treatment Upcoming Encounters Date Type Department Care Team (Late st Contact Info) Description 03/16/2024 10:15 AM EST Office Visit Audiology at [address] [phone] Anna Hernandez, PhD [facility] [place] [address] 08/03/2024 10:00 AM EDT [place] [address] Deborah Richardson APRN [facility] [place] [address] Scheduled Orders Name Type Priority Associated Diagnoses Orde r Schedule Basic Metabolic Panel Non-fasting Lab Routine Stage 3b chronic kidney disease Primary hypertension Expected: 08/01/2024 (Approximate), Expires: 02/02/2025 Albumin Level Lab Routine Stage 3b chronic kidney disease Primary hypertension Expected: 08/01/2024 (Approximate), Expires: 02/02/2025 CBC (with Diff) Lab Routine Stage 3b chronic kidney disease Primary hypertension Expected: 08/01/2024 (Approximate), Expires: 02/02/2025 PTH Lab Routine Stage 3b chronic kidney disease Primary hypertension Expected: 08/01/2024 (Approximate), Expires: 02/02/2025 Vitamin D, 25-Hydroxy Lab Routine Stage 3b chronic kidney disease Primary hypertension Expected: 08/01/2024 (Approximate), Expires: 01/31/2025 U Albumin/Cre Ratio Lab Routine Stage 3b chronic kidney disease Primary hypertension Expected: 08/01/2024 (Approximate), Expires: 01/31/2025 Protein/Creatinine Ratio, urine Lab Routine Stage 3b chronic kidney disease Primary hypertension Expected: 08/01/2024 (Approximate), Expires: 02/02/2025 documented as of this encounter Results * Protein/Creatinine Ratio, urine (01/27/2024) Creatinine, Urine [...] 01/27/2024 Kwame Day MD CHEMISTRY ORDERABLES * PTH (01/27/2024) PTH - External 52.8 [...] SPECIMEN / Unknown 01/27/2024 Kwame Day MD HEMATOLOGY ORDERABLE S * Albumin [...] Unknown 01/27/2024 Kwame Day MD CHEMISTRY ORDERABLES documented in this encounter Visit Diagnoses Diagnosis Stage 3b chronic kidney disease Primary hypertension Unspecified essential hypertension Chronic fatigue Other malaise and fatigue documented in this encounter Care Teams Business Strategist Relationship Specialty Start Date End Date Christel Arndt [address] [place] [address] PCP - General Family Medicine 06/28/22 documented as of this encounter
--- OUTSIDE RECORDS SUMMARY | 2024-03-04 21:49 | XMS_ITS | Encounter Summary ---
Author Organization [facility] [place] [address] Care Team Providers Care Central Sterile Tech Name Role Phone Christel Arndt Primary Care Provider Encounter Details Date Type Department Care Team (Late st Contact Info) Description 08/13/2023 Telephone Neph[place] [phone] Tosha Leal, ARLINE Social History Tobacco Use [...] 10:15 AM EST Office Visit Audiology at [address] [phone] Anna Hernandez, PhD [facility] [place] [address] 08/03/2024 10:00 AM EDT [place] [address] Deborah Richardson [facility] [place] [address] documented as of this encounter Visit Diagnoses Not on filedocumented in this encounter Care Teams Central Sterile Tech Relationship Specialty Start Date End Date Christel Arndt [address] [place] [address] PCP - General Family Medicine 06/28/22 documented as of this encounter
--- OUTSIDE RECORDS SUMMARY | 2024-03-04 21:49 | XMS_ITS | Encounter Summary ---
Author Organization [facility] [place] [address] Care Team Providers Care It Business Analyst Name Role Phone JayashreeAryaChristel Primary Care Provider Reason for Visit * Reason Comments Follow-up Back Pain Back pain/Left hip Encounter Details Date Type Department Care Team (Late st Contact Info) Description 10/09/2022 11:00 AM EDT Office Visit [facility] [place] [address] Robert Villela MD [facility] [place] [address] Pain in left hip (Primary Dx); Sacroiliac [...] Villela MD - 10/09/2022 11:00 AM EDT [facility] for [facility] Follow Up Note [...] information in the patient's medical record at [facility] including relevant provider notes, laboratory work, and imaging. Conservative Treatment: The patient has been actively engaged in Physical therapy at [facility] within thelast 6 months for a duration [...] [facility]ending [facility] [address] [address] / ADD: XR Pelvis and Hip 2 Views Bilateral on 10/09/2022 showed: IMPRESSION Mild osteoarthropathy of both hips. CC: Moira Capone MD [address] [place] [id number] documented in this encounter Plan of Treatment Upcoming Encounters Date Type Department Care Team (Late st Contact Info) Description 03/16/2024 10:15 AM EST Office Visit Audiology at [address] [phone] Anna Hernandez, PhD [facility] [address] 08/03/2024 10:00 AM EDT Office [place] [address] Deborah Richardson APRN [facility] [place] [address] documented as of this encounter Results * [...] have questions please contact the health career placement specialist that requested your imaging first. ? Narrative [...] who have questions please contactthe health career placement specialist that requested your imaging first. Robert [...] thigh documented in this encounter Care Teams It Business Analyst Relationship Specialty Start Date End Date Jayashree-Christel Courtney [address] [place] [address] PCP - General Family Medicine 06/28/22 documented as of this encounter
--- OUTSIDE RECORDS SUMMARY | 2024-03-04 21:49 | XMS_ITS | Encounter Summary ---
Author Organization [facility] [place] [address] Care Team Providers Care Clinical Information Systems Director Name Role Phone MilkaSherwinChristel Primary Care Provider Encounter Details Date Type Department Care Team (Late st Contact Info) Description 11/06/2023 Telephone [place] [phone] Marti Atkinson RN Social History Tobacco Use Types Packs/Day Years [...] encounter Miscellaneous Notes * Telephone Encounter - Marti Atkinson RN - 11/06/2023 9:41 AM EDT Copied from [facility] #[id number]. Topic: Specialty Dept CRMs - Generic Call >> Nov 06, 2023 9:28 AM May wrote: Specialist: Debra Relationship (if other than patient-full name): Self Reason for Call: Patient called in stating they were in the office yesterday for an appointment . After the appointment the patient states that they tested positive for Covid and wanted the office toknow documented in this encounter Plan of Treatment Upcoming Encounters Date Type Department Care Team (Late st Contact Info) Description 03/16/2024 10:15 AM EST Office Visit Audiology at [address] [phone] Anna Hernandez, PhD [facility] [place] [address] 08/03/2024 10:00 AM EDT Office [place] [phone] Deborah Richardson, RFID SYSTEMS ENGINEER [facility] [place] [address] documented as of this encounter Visit Diagnoses Not on filedocumented in this encounter Care Teams Clinical Information Systems Director Relationship Specialty Start Date End Date Christel Arndt [address] [place] [address] PCP - General Family Medicine 06/28/22 documented as of this encounter
--- OUTSIDE RECORDS SUMMARY | 2024-03-04 21:49 | XMS_ITS | Encounter Summary ---
Author Organization [facility] [address] Care Team Providers Care Nurse Administrator Name Role Phone Christel Arndt Primary Care Provider Encounter Details Date Type Department Care Team (Latest Contact Info) Description 02/03/2024 Travel Social History Tobacco Use Types Packs/Day [...] 10:15 AM EST Office Visit Audiology at [address] [phone] Anna Hernandez, PhD [facility] [place] [address] 08/03/2024 10:00 AM EDT Office [place] [phone] Deborah Richardson BLASTING WORKER [facility] [place] [address] documented as of this encounter Visit Diagnoses Not on filedocumented in this encounter Care Teams Nurse Administrator Relationship Specialty Start Date End Date Christel Arndt [address] [place] [address] PCP - General Family Medicine 06/28/22 documented as of this encounter
--- OUTSIDE RECORDS SUMMARY | 2024-03-04 21:49 | XMS_ITS | Encounter Summary ---
Author Organization [facility] [place] [address] Care Team Providers Care Bee Breeder Name Role Phone Christel Arndt Primary Care Provider Encounter Details Date Type Department Care Team (Late st Contact Info) Description 07/02/2022 Telephone [place] [address] Kwame Day MD [facility] [place] [address] Social History Tobacco Use Types Packs/Day Years [...] 9:[address] Carrera office [phone] and asked about target blood pressure and whether he wants thepatient to be on eplerenone. Staff took the message and told me that Dr. Mackay will call me when he has a min. documented in this encounter Plan of Treatment Upcoming Encounters Date Type Department Care Team (Late st Contact Info) Description 03/16/2024 10:15 AM EST Office Visit Audiology at [address] [phone] Anna Hernandez, PhD [facility] [address] 08/03/2024 10:00 AM EDT [place] [phone] Deborah Richardson, ECMO SPECIALIST [facility] [place] [address] documented as of this encounter Visit Diagnoses Not on filedocumented in this encounter Care Teams Bee Breeder Relationship Specialty Start Date End Date Christel Arndt [address] [place] [address] PCP - General Family Medicine 06/28/22 documented as of this encounter
--- OUTSIDE RECORDS SUMMARY | 2024-03-04 21:49 | XMS_ITS | Encounter Summary ---
Author Organization [facility] [place] [address] Care Team Providers Care Furnace Clerk Name Role Phone Christel Arndt Primary Care Provider Encounter Details Date Type Department Care Team (Latest Contact Info) Description 01/27/2024 External Results [place] [address] Tosha Leal RN Stage 3b [...] 10:15 AM EST Office Visit Audiology at [address] [phone] Anna Hernandez, PhD [facility] [place] [address] 08/03/2024 10:00 AM EDT [place] [address] Deborah Richardson APRN [facility] [place] [address] documented as of this encounter Procedures Procedure Name Priority Date/Time Associated Diagnosis Comments PTH Routine 01/27/2024 Stage 3b chronic kidney [...] chronic kidney disease Primary hypertension Chronic fatigue ALBUMIN LEVEL Routine 01/27/2024 Stage 3b chronic kidney disease Primary hypertension Chronic fatigue BASIC METABOLIC PANEL Routine 01/27/2024 Stage 3b chronic kidney disease Primary hypertension Chronic fatigue documented in this encounter Results * Albumin Level (01/27/2024) Albumin - External 4.2 Blood VENOUS BLOOD SPECIMEN / Unknown 01/27/2024 Kwame Day MD CHEMISTRY ORDERABLES * U Albumin/Cre Ratio (01/27/2024) Alb/Cr Ratio, Random - External <0.50 Albumin, Urine - External <7.0 Creatinine, Urine - External 62.0 Urine URINE SPECIMEN / Unknown 01/27/2024 Kwame Day MD URINE ORDERABLES * Vitamin D, 25-Hydroxy (01/27/2024) 25-OH Vit D Total - External 48.0 Blood VENOUS BLOOD SPECIMEN / Unknown 01/27/2024 Narrative Authorizing Provider Result Betsy Day MD CHEMISTRY ORDERABLES * PTH (01/27/2024) PTH - External 52.8 Blood VENOUS BLOOD SPECIMEN / Unknown 01/27/2024 Narrative Authorizing Provider Result Betsy Day MD CHEMISTRY ORDERABLES * Basic Metabolic [...] 01/27/2024 Kwame Day MD CHEMISTRY ORDERABLES * Protein/Creatinine Ratio, urine (01/27/2024) Pathologist [facility] Creatinine, Urine - External 62.0 Protein, Urine Ran - External 4.4 Prot/Cre Ratio - External 0.10 Urine URINE SPECIMEN / Unknown 01/27/2024 Narrative Authorizing Provider Result Betsy Day MD URINE ORDERABLES * CBC (with Diff) (01/27/2024) WBC - External 5.7 RBC - External 4.51 Hemoglobin - External 13.4 Hematocrit - External 40.5 MCV - External 89.8 MCH - External 29.7 MCHC - External 33.1 RDWCV - External 13.9 Platelets - External 226 MPV - External 9.7 Blood VENOUS BLOOD SPECIMEN / Unknown 01/27/2024 Narrative Authorizing Provider Result Betsy Day MD HEMATOLOGY ORDERABLE S documented in this encounter Visit Diagnoses Diagnosis Stage 3b chronic kidney disease Primary hypertension Unspecified essential hypertension Chronic fatigue Other malaise and fatigue documented in this encounter Care Teams Furnace Clerk Relationship Specialty Start Date End Date Yoselin Arndtanna [address] [place] [address] PCP - General Family Medicine 06/28/22 documented as of this encounter
--- OUTSIDE RECORDS SUMMARY | 2024-03-04 21:49 | XMS_ITS | Encounter Summary ---
Author Organization [facility] [place] [address] Care Team Providers Care Cloth Layer Name Role Phone GracetimArya Christel Primary Care Provider Reason for Referral * Physical Therapy (Routine) - Authorized Specialty Diagnoses / Procedures Referred By Leidy lemon Referred To Contact Physical Therapy Diagnoses Mixed stress and urge urinary incontinence Overactive bladder Deborah Richardson APRN [facility] [place] [address] [address] Referral ID Status Reason Start Date Expiration Date Visits Requested Visits Authorized [id number] Authorized Evaluate and Treat 02/03/2024 08/01/2024 12 12 Encounter Details Date Type Department Care Team (Late st Contact Info) Description 02/03/2024 11:00 AM EST [place] [address] Deborah Richardson APRN [facility] [place] [address] Mixed stress and urge urinary incontinence; Overactive bladder; IC (interstitial cystitis); History of UTI Social History Tobacco Use Types Packs/Day Years [...] Mass Index 23.34 02/03/2024 10:52 AM EST documented in this encounter Patient Instructions * Patient Instructions* Deborah Richardson APRN - 02/03/2024 11:00 AM EST - check with insurance in the new year for cost of medications for urinary urgency and frequency. - vibegron (Gemtesa) 75mg per day - mirabegron (Mrybetriq) 25-50mg per day - I will sent urinalysis and culture today given + dip in clinic- will message via Medias[employer] with results once completed. - continue with regular voiding every 2 hours and double voiding to ensure emptying well. documented in this encounter Progress Notes * Deborah Richardson APRN - 02/03/2024 11:00 AM EST [facility] SECTION OF UROLOGY OUT PATIENT FOLLOW UP VISIT History of Present Illness: Ruthann Guido is an 69 y.o. year old woman here for follow [...] Day showed 1 rbc/hpf and 0 wbc 11/05/23: 1-9k insignificant growth Today 02/03/2024, she presents for routine follow up for urinary incontinence. She was last seen 3 months ago, IC well managed with behavioral therapies, and no recent UTI's. Shehad worsening worsening urgency/frequency and stress incontinence, was started on vibegron 75m/day at that time and referred to PFPT. She states she took vibegron for 1 month (only the free trial) and found it helpful to reduce urgency/frequency, towards the end of the month had some hesitancy and too costly so stopped. She feels symptoms are a little improved still from last visit with behavioral therapies, varies. She has not started PFPT. Daytime Voiding: q2-3h- larger volumes when voiding. Nocturia:wakes 1x/night. Nocturnal Enuresis: none Incontinence continues to be only with stress maneuvers occasionally. Pad Use: liner, lasts all day. Fluid Intake: ~ 48oz water, 2 cup decaf green tea, apple cider. Last UTI: none Bowels: regular No gross hematuria or dysuria. PMHx: CKD, asthma, central serous chorioretinopathy, GERD, IBS, IC, osteoporosis. Osateoarthritis, compression fx in lumbar spine, plantar fasciitis bilaterally, insomnia, depression, anxiety, chronic fatigue syndrome. Gyne Hx: G 4 P 1 #1 hysterectomy in 2008 for bleeding 3/4 weeks per month- uses estradiol cream2-3x/week PSHx: cholecystectomy, hernia repair x2, hysterectomy, appendectomy, sinus surgeyr, tonsillectomy & adenoidectomy. Family Hx: dad had bladder cancer in his 80s. Social Hx: lives with son & family, never a smoker, no etoh. 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 10/2023: 38ml 12/2022: 113cc 04/2022: 55ml 04/2021: 30-40 cc Urine dipstick shows ++ leuks and ++ blood. Recent Labs: 06/07/2021: cre 1.38, glucose 117, lytes normal, GFR 41 and LFTs normal on amitriptyline. 07/20/2021: 1.41 and GFR 39 07/31/23: Cre 1.6, eGFR 35 IMPRESSION: #1: OAB w/ ANALI #2: History of IC- well controlled with behavioral therapies #3: Intermittent UTIs PLAN/RECOMMENDATIONS: Encouraged continued use of behavioral therapies: encouraged timed voiding, double voiding, and bowel moderation. Does well with hydration and limiting bladder iritants. Referral placed to PFPT in [place]. Reviewed medication options such as anticholinergics or Beta 3 agonist for urge incontinence to help with OAB sx. Defers anticholinergics due to side effect profile, will check cost of mirabegron and vibegron withnew year and reach out if affordable given efficacy with free trial. PFPT- only if in [place], will defer referral as I do not believe there is one in that area. Willreconsider. Discussed PTNS or bladder botox pros/cons of each- she is not interested in these therapies at thistime. Defer PTNS given distance and frequency. Not interested in bladder botox as symptoms not that severe. Stress incontinence mild- not interested in other treatment. PTNS difficult due to drive. UA w/ micro & culture today given symptoms and positive UA Dip. Treat pending final culture sensitivity. Follow up in 3 months (scheduled at exit). Patient verbalizes understanding and is agreeable to plan. All questions answered to her apparent satisfaction Deborah Richardson APRN Section of Urology [phone] documented in this encounter Plan of Treatment Upcoming Encounters Date Type Department Care Team (Late st Contact Info) Description 03/16/2024 10:15 AM EST Office Visit Audiology at [address] [address] Anna Hernandez, PhD [facility] [place] [address] 08/03/2024 10:00 AM EDT [place] [address] Deborah Richardson APRN [facility] [place] [address] Scheduled Referrals Name Type Priority Associated Diagnoses Orde r Schedule Referral to Physical Therapy Outpatient Referral Routine Mixed stress and urge urinary incontinence Overactive bladder Ordered: 02/03/2024 documented as of this encounter Procedures Procedure Name Priority Date/Time Associated Diagnosis Comments URINALYSIS BEAKER MICROSCOPIC ([facility]) Routine 02/03/2024 11:17 AM EST Mixed stress [...] urinary incontinence Overactive bladder History of UTI documented in this encounter Results * (ABNORMAL) Urinalysis Microscopic (02/03/2024 11:17 AM EST) Bacteria, Urine None None /HPF 1:32 PM [facility] Calcium Phosphate Crytals, Urine Rare(A) None /HPF 02/03/2024 1:32 PM [facility] RBC, Urine 1 0 - 4 /HPF 02/03/2024 1:32 PM [facility] WBC, Urine 2 0 - 5 /HPF 02/03/2024 1:32 PM [facility] Squamous Epithelial Cells, Urine 1 0 - 5 /HPF 02/03/2024 1:32 PM [facility] Hyaline Casts, Urine 0 0 - 2 /LPF 02/03/2024 1:32 PM [facility] Comment 02/03/2024 1:32 PM [facility] Comment:Interpret results wi th caution, microscopic results are from a suboptimal specimen. Urine URINE SPECIMEN OBTAINED BY CLEAN CATCH PROCEDURE / Unknown Non Blood Collection / Unknown 02/03/2024 11:17 AM EST 02/03/2024 12:50 PM EST Deborah Richardson APRN URINE ORDERABLES Performing Organization Address [facility]/ZIP Co de Phone Number [facility] [place] [address] * Urinalysis Microscopic Exam (02/03/2024 11:17 AM EST) Urine Non Blood Collection / Unknown 02/03/2024 11:17 AM EST 02/03/2024 12:50 PM EST Deborah Stephanie Lockhartdorota WING MAILER MACHINE OPERATOR URINE ORDERABLES Performing Organization Address [facility] Co de Phone Number [facility] [place] [address] * (ABNORMAL) Urinalysis Dipstick (02/03/2024 11:17 AM EST) Glucose, Urine Dipstick Negative Negative 02/03/2024 1:32 PM [facility] Protein, Urine Dipstick Negative Negative 02/03/2024 1:32 PM [facility] Bilirubin, Urine Dipstick Negative Negative 02/03/2024 1:32 PM [facility] Comment:Clinical correlation required for positive Urine Bilirubin results as false positive may occur with some drugs and drug related products. If a false positive is suspected a serum total bilirubin should be considered if clinically indicated. Urobilinogen, Urine Dipstick Normal Normal, 0.2 mg/dL, 1.0 mg/dL 02/03/2024 1:32 PM [facility] pH, Urine (dipstick) 6.0 5.0 - 8.0 02/03/2024 1:32 PM [facility] Blood, Urine Dipstick Trace(A) Negative 02/03/2024 1:32 PM [facility] Ketone, Urine Dipstick Negative Negative 02/03/2024 1:32 PM [facility] Nitrite, Urine Dipstick Negative Negative 02/03/2024 1:32 PM [facility] Leukocytes, Urine Dipstick Trace(A) Negative 02/03/2024 1:32 PM [facility] Specific [place] Urine Automated 1.009 1.005 - 1.030 02/03/2024 1:32 PM [facility] Appearance, Urine Dipstick Clear Clear 02/03/2024 1:32 PM [facility] Color, Urine Dipstick Yellow Yellow, Dark Yellow 02/03/2024 1:32 PM [facility] CULTURE ADDED? 02/03/2024 1:32 PM [facility] Urine Non Blood Collection / Unknown 02/03/2024 11:17 AM EST 02/03/2024 12:50 PM EST Deborah Richardson APRN URINE ORDERABLES Performing Organization Address [facility] Co de Phone Number [facility] [place] [address] * Urine culture (02/03/2024 11:17 AM EST) Urine Culture 50,000-99,0 00 cfu/ml normal mucosal claire 02/04/2024 3:04 PM [facility] Comment:Susceptibility testi ng not routinely performed for Coagulase Negative Staphylococcus species and other Gram Positive organisms from urine. Urine URINE SPECIMEN OBTAINED BY CLEAN CATCH PROCEDURE / Unknown Non Blood Collection / Unknown 02/03/2024 11:17 AM EST 02/03/2024 12:50 PM EST Deborah Richardson APRN MICROBIOLOGY - GENE RAL ORDERABLES Performing Organization Address City/[facility]/ZIP Co de Phone Number [facility] [place] [address] documented in this encounter Visit Diagnoses Diagnosis Mixed stress and urge urinary incontinence Mixed incontinence urge and stress (male)(female) Overactive bladder Hypertonicity of bladder IC (interstitial cystitis) Chronic interstitial cystitis History of UTI Personal history of urinary (tract) infection documented in this encounter Care Teams Cloth Layer Relationship Specialty Start Date End Date Gracece-Christel Courtney [address] [place] [address] PCP - General Family Medicine 06/28/22 documented as of this encounter
--- OUTSIDE RECORDS SUMMARY | 2024-03-04 21:49 | XMS_ITS | Encounter Summary ---
Author Organization [facility] [place] [address] Care Team Providers Care Ict Support Engineer Name Role Phone Christel Arndt Primary Care [...] 10:15 AM EST Office Visit Audiology at [address] [phone] Anna Hernandez, PhD [facility] [place] [address] 08/03/2024 10:00 AM EDT [place] [phone] Deborah Richardson BOX [employer] [facility] [place] [address] documented as of this encounter Visit Diagnoses Not on filedocumented in this encounter Care Teams Ict Support Engineer Relationship Specialty Start Date End Date Christel Arndt [address] [place] [address] PCP - General Family Medicine 06/28/22 documented as of this encounter
--- OUTSIDE RECORDS SUMMARY | 2024-03-04 21:49 | XMS_ITS | Encounter Summary ---
Author Organization [facility] Address [facility] [place] [address] Care Team Providers Care Customer Services Coordinator Name Role Phone Christel Arndt Primary Care Provider Encounter Details Date Type Department Care Team (Latest Contact Info) Description 08/21/2022 12:20 PM EDT - 08/21/2022 11:59 PM EDT Hospital Encounter XRay at [address] [place] [address] Robert Villela MD [facility] [address] Other spondylosis with radiculopathy, lumbar region Discharge [...] 10:15 AM EST Office Visit Audiology at [address] [address] Anna Hernandez, PhD [facility] [place] [address] 08/03/2024 10:00 AM EDT Office [place] [phone] Deborah Richardson, ADULT PROBATION OFFICER [facility] [place] [address] documented as of this encounter Procedures Procedure [...] who have questions please contact the health health care administrator that requested your imaging first. ? Narrative 08/21/2022 3:36 PM EDT EXAMINATION: XR LUMBAR SPINE 2 OR 3 VIEWS (GENERIC), XR THORACIC SPINE 2 VIEWS CLINICAL HISTORY: 67 yo F with h/o osteoporosis, midthoracic and lower back pain radiating to B hips L>R. Please obtain AP and lat flex/ ext Xrays r/o dynamic instability ??and r/o VCF (accession [id number]), r/o vertebral compression fracture (accession [id number]) TECHNIQUE: AP, lateral flexion and extension standing [...] r/o dynamic instability and r/o VCF (accession [id number]), r/o vertebral compression fracture (accession [id number]) TECHNIQUE: AP, lateral flexion and extension standing [...] patients who have questions please contactthe health health care administrator that requested your imaging first. Robert Villela [...] who have questions please contact the health health care administrator that requested your imaging first. ? Narrative 08/21/2022 3:36 PM EDT EXAMINATION: XR LUMBAR SPINE 2 OR 3 VIEWS (GENERIC), XR THORACIC SPINE 2 VIEWS CLINICAL HISTORY: 67 yo F with h/o osteoporosis, midthoracic and lower back pain radiating to B hips L>R. Please obtain AP and lat flex/ ext Xrays r/o dynamic instability ??and r/o VCF (accession [id number]), r/o vertebral compression fracture (accession [id number]) TECHNIQUE: AP, lateral flexion and extension standing [...] r/o dynamic instability and r/o VCF (accession [id number]), r/o vertebral compression fracture (accession [id number]) TECHNIQUE: AP, lateral flexion and extension standing [...] patients who have questions please contactthe health health care administrator that requested your imaging first. Robert Villela MD IMG DX ORDERABLES documented in this encounter Visit Diagnoses Diagnosis Other spondylosis with radiculopathy, lumbar region documented in this encounter Care Teams Customer Services Coordinator Relationship Specialty Start Date End Date Christel Arndt [address] [place] [address] PCP - General Family Medicine 06/28/22 documented as of this encounter
--- OUTSIDE RECORDS SUMMARY | 2024-03-04 21:49 | XMS_ITS | Encounter Summary ---
Author Organization [facility] [place] [address] Care Team Providers Care Painter Hand Name Role Phone Christel Arndt Primary Care Provider Encounter Details Date Type Department Care Team (Late st Contact Info) Description 07/03/2022 Notes Only Nephrology [place] [address] Kwame Day MD [facility] [place] [address] Social History Tobacco Use Types Packs/Day Years [...] PM EDT Discussed with DR. Mackay, the lead burner. He started Ruthann Glo Wolf on Eplerenone for cental serous chorioretinopathy, in which MRA have been shown to have modest benefit. Awaiting 24 hr ambulatory blood pressure results. documented in this encounter Plan of Treatment Upcoming Encounters Date Type Department Care Team (Late st Contact Info) Description 03/16/2024 10:15 AM EST Office Visit Audiology at [address] [address] Anna Hernandez, PhD [facility] [place] [address] 08/03/2024 10:00 AM EDT Office [place] [phone] Deborah Richardson, PRICING/SIGNAGE TEAM MEMBER [facility] [place] [address] documented as of this encounter Visit Diagnoses Not on filedocumented in this encounter Care Teams Painter Hand Relationship Specialty Start Date End Date Christel Arndt [address] [place] [address] PCP - General Family Medicine 06/28/22 documented as of this encounter
--- OUTSIDE RECORDS SUMMARY | 2024-03-04 21:49 | XMS_ITS | Encounter Summary ---
Author Organization [facility] Address [facility] [place] [address] Care Team Providers Care Electrical Sign Wirer Name Role Phone Moira Covarrubias MD Primary Care Provider [phone] Reason for Visit * Consultation (Routine) - Closed Specialty Diagnoses / Procedures Referred By Leidy lemon Referred To Contact Dermatology Diagnoses Encounter for allergy testing Darrius Mackay MD [address] [address] Mick Contreras MD [address] [facility] [place] [address] Referral ID Status Reason Start Date Expiration Date V isits Requested Visits Authorized [id number] Closed Consult, Test & Treat 03/20/2022 03/20/2023 1 1 Encounter Details Date Type Department Care Team (Late st Contact Info) Description 05/14/2022 11:00 AM EDT TH Visit (TeleHealth) Dermatology at [facility] [address] [place] [phone] Mick Contreras MD [address] [facility] [address] Dermatitis Social History Tobacco Use [...] Mick Contreras MD FAAD at Dermatology at [facility] Patient's preferred name Ruthann Preferred contact method [...] dermatitis. [] Recall placed [] Forwarded to asphalt surface heater operator [] Patient scheduled before exiting Scribe attestation: Paige Gonzalez, RN has performed the documentation for this encounter in the presence of and acting as a scribe for Mick Contreras MD FAARicardo. I performed the above scribed service and agree with the accuracy of the documentation in this encounter. Reviewed and signed by: MD QUINN Leonard Dermatology [facility] documented in this encounter Plan of Treatment Upcoming Encounters Date Type Department Care Team (Late st Contact Info) Description 03/16/2024 10:15 AM EST Office Visit Audiology at [address] [address] Anna Hernandez, PhD [facility] [place] [address] 08/03/2024 10:00 AM EDT [place] [address] Deborah Richardson [employer] [facility] [place] [address] Scheduled Referrals Name Type Priority Associated Diagnoses Order Schedule Referral to Dermatology Outpatient Referral Routine Encounter for allergy testing Ordered: 03/20/2022 documented as of this encounter Visit Diagnoses Diagnosis Dermatitis Contact dermatitis and other eczema, due to unspecified cause documented in this encounter Care Teams Electrical Sign Wirer Relationship Specialty Start Date End Date Moira Covarrubias MD PCP - General Family Medicine 07/17/21 06/27/22 documented as of this encounter
--- OUTSIDE RECORDS SUMMARY | 2024-03-04 21:49 | XMS_ITS | Encounter Summary ---
Author Organization [facility] [place] [address] Care Team Providers Care Polisher Eyeglass Frames Name Role Phone MilkaSherwinChristel Primary Care Provider Encounter Details Date Type Department Care Team (Latest Contact Info) Description 06/28/2022 4:00 PM EDT Office Visit Neph[place] [address] Kwame Day MD [facility] [place] [address] Stage 3b chronic kidney disease; Primary hypertension [...] Cis Free Text Allergy multiple foods. ??? [place] ??? Corticosteroids (Glucocorticoids) ??? Dog Dander ??? [...] Stone Fruit Other reaction(s): Unknown ??? Tiotropium [place] ??? Tree And Shrub Pollen Other reaction(s): Unknown ??? Tree Nut Peanuts and products/all nuts and oils ??? Tree Nuts ??? [place] Pollen Other reaction(s): Unknown PHYSICAL EXAM: Last [...] 30 minutes was spent for reviewing chart, [id number] encounter, ordering labs/medication,documentation in the chart, and coordinating care. RTC 6 month CC-Chrisetl Blanc-Sherwin Day MD 06/28/2022 Hypertension-Nephrology * Maria Elena [...] 10:15 AM EST Office Visit Audiology at [address] [address] Anna Hernandez, PhD [facility] [place] [place] [address] 08/03/2024 10:00 AM EDT Office [place] [address] Deborah Richardson APRN [facility] [place] [address] documented as of this encounter Visit Diagnoses Diagnosis Stage 3b chronic kidney disease Primary hypertension Unspecified essential hypertension documented in this encounter Care Teams Polisher Eyeglass Frames Relationship Specialty Start Date End Date Christel Arndt [address] [place] [address] PCP - General Family Medicine 06/28/22 documented as of this encounter
--- OUTSIDE RECORDS SUMMARY | 2024-03-04 21:49 | XMS_ITS | Encounter Summary ---
Author Organization [facility] [place] [address] Care Team Providers Care Hard Candy Batch Mixer Name Role Phone Christel Arndt Primary Care [...] 10:15 AM EST Office Visit Audiology at [address] [phone] Anna Hernandez, PhD [facility] [place] [address] 08/03/2024 10:00 AM EDT Office [place] [phone] Deborah Richardson DEFENCE FORCE MEMBER OTHER [employer] [facility] [place] [address] documented as of this encounter Visit Diagnoses Not on filedocumented in this encounter Care Teams Hard Candy Batch Mixer Relationship Specialty Start Date End Date Christel Arndt [address] [place] [address] PCP - General Family Medicine 06/28/22 documented as of this encounter
--- OUTSIDE RECORDS SUMMARY | 2024-03-04 21:50 | XMS_ITS | Encounter Summary ---
Author Organization Formerly [facility] [place] [address] Care Team Providers Care Diabetic Educator Name Role Phone Kaylene Pinedo MD Primary Care Provider Reason for Visit * Reason Comments Hospital Transfer Altered Mental Status * Auth/Cert Specialty Diagnoses / Procedures Referred By Leidy lemon Referred To Contact Diagnoses Disequilibrium Procedures EMERGENCY OBSVO Referral ID Status Reason Start Date Expiration Date Visits Re quested Visits Authorized [id number] 1 1 Encounter Details Date Type Department Care Team (Late st Contact Info) Description 07/12/2019 10:09 PM EDT - 07/13/2019 5:25 PM EDT Emergency [address] [place] [address] Mackenzie Weber MD Smith, Andrew D III, MD [facility] [place] [address] Nazia Viera MD [facility] [place] [address] Danielito Holland MD [facility] [place] [address] Disequilibrium Discharge Disposition: Home Social History Tobacco [...] Ruthann Wolf Patient Age: 64 y.o. Language: Swazi Race: White Ethnicity: Not nor Admit date: [...] author(s) of this discharge summary through the [facility] Net Application Support Specialist . Discharge Diagnoses: Migraine associated dysequilibrium Active [...] (idiopathic), asthma, insomnia who was transferred to [facility] from [facility] for evaluation of gait impairment and concern [...] this was a little different. ??While at [facility] they gave her meclizine which she said had good effect on her symptoms. ??[facility] she felt that her symptoms had nearly resolved. ??While at [facility] she had a CT of the head [...] L ?Elbow flexion ?5/5 R, 5/5 L ?Dobby Loom Weaver ?LE: ?5/5 R, 5/5 L ?Hip flexion [...] tendon ?Toes - R down, L down? Coordination:?Sunbury-Hallpike maneuver negative Finger to nose intact,??no dysmetria [...] flow limiting stenosis or occlusion. TTE from [facility] was reviewed - this can be followed-up [...] ataxia, positive romberg, stroke work up (accession [id number]), ataxia, positive romberg positive varela on left. assess for myelopathy (accession [id number]), ataxia, positive romberg, stroke work up (accession [id number]), ataxia, positive romberg, stroke work up (accession [id number]) TECHNIQUE: MRI of the brain performed without [...] ataxia, positive romberg, stroke work up (accession [id number]), ataxia, positive romberg positive varela on left. assess for myelopathy (accession [id number]), ataxia, positive romberg, stroke work up (accession [id number]), ataxia, positive romberg, stroke work up (accession [id number]) TECHNIQUE: MRI of the brain performed without [...] ataxia, positive romberg, stroke work up (accession [id number]), ataxia, positive romberg positive varela on left. assess for myelopathy (accession [id number]), ataxia, positive romberg, stroke work up (accession [id number]), ataxia, positive romberg, stroke work up (accession [id number]) TECHNIQUE: MRI of the brain performed without [...] L ?Elbow flexion ?5/5 R, 5/5 L ?Dobby Loom Weaver ?LE: ?5/5 R, 5/5 L ?Hip flexion [...] were admitted to the neurology service at [facility] Your Diagnosis: dysequilibrium, possibly migraine associated -NO stroke identified this admission -No medication changes at this time -Seek medical attention if symptoms return -follow-up with PCP to arrange CT neck as outpatient -Call [phone] to contact neurology clinic if unable to arrange CT scan and this study can be arranged through [facility]. - Work close with your primary care [...] 10. Consider Diabetes Education in your community; [facility] offers a diabetes program called ???Jump Start?? . Call [facility] for more information. Know Your Numbers! Blood [...] author(s) of this discharge summary through the [facility] Net Application Support Specialist . General Instructions None Primary Care Provider: Kaylene Pinedo MD [address] / [place] [address] Discharge References/Attachments None documented in this encounter Discharge Instructions * Patient Instructions* Griffin Ann PA - 07/13/2019 4:00 PM EDT Images from the original note were not included. Patient Instructions: You were admitted to the neurology service at [facility] Your Diagnosis: dysequilibrium, possibly migraine associated -NO stroke identified this admission -No medication changes at this time -Seek medical attention if symptoms return -follow-up with PCP to arrange CT neck as outpatient -Call [phone] to contact neurology clinic if unable to arrange CT scan and this study can be arranged through [facility]. - Work close with your primary care [...] 10. Consider Diabetes Education in your community; [facility] offers a diabetes program called ???Jump Start?? . Call [facility] for more information. Know Your Numbers! Blood [...] author(s) of this discharge summary through the [facility] Net Application Support Specialist . documented in this encounter Medications at [...] & ACIDOPHILUS ORAL) Take by mouth. 07/18/19 22 COD LIVER OIL ORALIndications:Renal insufficiency Take 1 [...] (idiopathic), asthma, insomnia who was transferred to [facility] from [facility] for evaluation of gait impairment and concern [...] this was a little different. While at [facility] they gave her meclizine which she said had good effect on her symptoms. By the time she arrived to [facility] she felt that her symptoms had nearly resolved. While at [facility] she had a CT of the head [...] Infusions: ??? 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 Marital status: [...] file Gets together: Not on file Attends yazidism service: Not on file Active member of [...] L Elbow flexion 5/5 R, 5/5 L Dobby Loom Weaver LE: 5/5 R, 5/5 L Hip flexion [...] Toes - R down, L down Coordination: Sunbury-Hallpike maneuver negative Finger to nose intact, no [...] Negative mcL Appearance UA Clear Clear Spec [place] UA 1.009 1.002 - 1.030 Color UA [...] (idiopathic), asthma, insomnia who was transferred to [facility] from [facility] for evaluation of gait impairment and concern [...] Neurology Resident PGY3 07/13/19 Vascular Neurology Pager [phone] Standard [facility] Swallow Screen: This screen is to be [...] diet as medical provider deems appropriate. Consider SUBSURFACE AUGMENTEE OPERATOR consult for full evaluation and diet recommendations. [...] L Elbow flexion 5/5 R, 5/5 L Dobby Loom Weaver 5/5 R, 5/5 L Finger interossei LE: [...] Negative mcL Appearance UA Clear Clear Spec [place] UA 1.009 1.002 - 1.030 Color UA [...] work-up, echo. Alvaro Hurley MD Resident 07/13/19 2449 Associated attestation - Mackenzie Weber MD - [...] with moderate improvement. Neuro updated with plan Eusebio Teague DO 07/12/192118 documented in this encounter Miscellaneous Notes * Plan of Care - Christy Pitts PT - 07/13/2019 2:51 [...] room with good dynamic stability upon this narrative writer's arrival, demonstrated ability to stand on one foot with unremarkable balance) and denies any inpatient PT needs or DME needs. When medically ready for hospital D/C, ena dillno recommendations: return to home setting, no follow-up PT needs identified; equipment needs for discharge: No equipment necessary. Please do not hesitate to page if you have any questions, thank you. Christy Pitts PT Pager #[phone] Physical Therapy Inpatient Rehabilitation * Initial Assessments [...] Vu Primary Care Provider: Kaylene Pinedo MD [phone] Patient/Caregiver Goals of Treatment: To get out of here today Potential Needs for Transition of Care: Rehab/SNF: Pending evals- [facility] or [facility] for SNF Home Health: [place] DME: none Dialysis: Community Resources: Available Transportation: Likely spouse Anticipated Barriers to Discharge/Special Considerations: none Assessment: 64 y.o.??Right-handed female with PMH of renal insufficiency (idiopathic), asthma, insomnia who was transferred to [facility] from [facility] for evaluation of gait impairment and concern of posterior circulation stroke Plan: Plan to evolve based on hospital course A member of the Care Management team will continue to monitor progress, follow for continuity of care and assist with transition of care planning. MILES Goode Pager: [phone] * Plan of Care - Sherron Estrella RN - 07/13/2019 6:17 AM EDT Problem: Patient Care Overview Goal: Plan of Care Review 07/13/19546 Coping/Psychosocial Plan Of Care Reviewed With patient [...] OUTCOME EVALUATION: Goal: Individualization & Mutuality 07/13/19 9669 Mutuality/Individual Preferences What Anxieties, Fears or Concerns [...] No fragrances Goal: Fall Prevention-Safe Patient Handling 07/13/1954607/13/19 0600 [place] Fall Risk History of Falling [...] -- assistance, stand-by Goal: Infection Control 07/13/19 05 Safety Interventions Isolation Precautions standard precautions maintained Infection Prevention rest/sleep promoted Goal: Discharge Needs Assessment 07/13/19 1462 Living Environment Transportation Available family or friend [...] ambulated to bathroom Intervention: Protect Affected Joints/Extremities 07/13/19 05 Positioning Body Position independent Goal: Signs and Symptoms of Listed Potential Problems Will be Absent, Minimized or Managed (Stroke) Signs and symptoms of listed potential problems will be absent, minimized or managed by discharge/transition of care (reference Stroke (Ischemic) (Adult) CPG). 07/13/19 0547 Stroke (Ischemic) Problems Assessed (Stroke (Ischemic)/TIA) all Problems Present (Stroke (Ischemic)/TIA) none documented in this encounter Plan of Treatment Upcoming Encounters Date Type Department Care Team (Late st Contact Info) Description 03/16/2024 10:15 AM EST Office Visit Audiology at [address] [address] Anna Hernandez, PhD [facility] [place] [address] 08/03/2024 10:00 AM EDT Office [place] [id number] Deborah Richardson APRN [facility] [place] [address] documented as of this encounter Procedures Procedure [...] 12:20 AM EDT DIFFERENTIAL, AUTOMATED STAT 07/13/19 20 12:20 AM EDT HC PARTIAL THROMBOPLASTIN TIME STAT 07/13/2019 12:20 AM EDT HC PROTHROMBIN TIME STAT 07/13/2019 1 2:20 AM EDT HC CBC,PLT & AUTO DIFF STAT 0 12:20 AM EDT HEPATIC FUNCTION PANEL STAT 0 12:20 AM EDT BASIC METABOLIC PANEL STAT 07/13/2019 12:20 AM EDT FILM LIBRARY [...] ataxia, positive romberg, stroke work up (accession [id number]), ataxia, positive romberg positive varela on left. assess for myelopathy (accession [id number]), ataxia, positive romberg, stroke work up (accession [id number]), ataxia, positive romberg, stroke work up (accession [id number]) TECHNIQUE: MRI of the brain performed without [...] ataxia, positive romberg, stroke work up (accession [id number]), ataxia,positive romberg positive varela on left. assess for myelopathy ([id number]), ataxia, positive romberg, stroke work up (accession [id number]), ataxia,positive romberg, stroke work up (accession [id number]) TECHNIQUE: MRI of the brain performed without [...] There is abnormal increased signal intensity on F5cxrixsjx and diminished signal intensity on T1-weighted sequence [...] MD IM MRI ORDERABLE S * MRI Cervical Spine [...] ataxia, positive romberg, stroke work up (accession [id number]), ataxia, positive romberg positive varela on left. assess for myelopathy (accession [id number]), ataxia, positive romberg, stroke work up (accession [id number]), ataxia, positive romberg, stroke work up (accession [id number]) TECHNIQUE: MRI of the brain performed without [...] ataxia, positive romberg, stroke work up (accession [id number]), ataxia,positive romberg positive varela on left. assess for myelopathy ([id number]), ataxia, positive romberg, stroke work up (accession [id number]), ataxia,positive romberg, stroke work up (accession [id number]) TECHNIQUE: MRI of the brain performed without [...] There is abnormal increased signal intensity on S6wlmyysfb and diminished signal intensity on T1-weighted sequence [...] the number below. Morro Sena III, MD IMG MRI ORDERABLE S * MRI Brain wo [...] ataxia, positive romberg, stroke work up (accession [id number]), ataxia, positive romberg positive varela on left. assess for myelopathy (accession [id number]), ataxia, positive romberg, stroke work up (accession [id number]), ataxia, positive romberg, stroke work up (accession [id number]) TECHNIQUE: MRI of the brain performed without [...] ataxia, positive romberg, stroke work up (accession [id number]), ataxia,positive romberg positive varela on left. assess for myelopathy ([id number]), ataxia, positive romberg, stroke work up (accession [id number]), ataxia,positive romberg, stroke work up (accession [id number]) TECHNIQUE: MRI of the brain performed without [...] There is abnormal increased signal intensity on F5iuknfvrg and diminished signal intensity on T1-weighted sequence [...] the number below. Morro Sena III, MD [facility] MRI ORDERABLE S * MRI Angiogram Head [...] ataxia, positive romberg, stroke work up (accession [id number]), ataxia, positive romberg positive varela on left. assess for myelopathy (accession [id number]), ataxia, positive romberg, stroke work up (accession [id number]), ataxia, positive romberg, stroke work up (accession [id number]) TECHNIQUE: MRI of the brain performed without [...] ataxia, positive romberg, stroke work up (accession [id number]), ataxia,positive romberg positive varela on left. assess for myelopathy ([id number]), ataxia, positive romberg, stroke work up (accession [id number]), ataxia,positive romberg, stroke work up (accession [id number]) TECHNIQUE: MRI of the brain performed without [...] There is abnormal increased signal intensity on E6qlufxcpw and diminished signal intensity on T1-weighted sequence [...] Culture No growth (Less than 1,000 cfu/ml). [facility] Urine specimen (specimen) 07/13/2019 5:46 AM EDT 07/13/2019 7:23 AM EDT Narrative Resulting Agency Comment Spec In Lab Ruby Keller MD MICROBIOLOGY - [facility] ORDERABLES [facility] [place] [address] * (ABNORMAL) Urinalysis Microscopic Exam (07/13/2019 5:46 AM EDT) RBC, Urine 2 0 - 4 /HPF [facility] WBC, Urine 10(H) 0 - 5 /HPF [facility] Squamous Epithelial Cells Raw Data, Urine 1 <=4 /HPF [facility] Urine specimen (specimen) 07/13/2019 5:46 AM EDT 07/13/2019 6:00 AM EDT Narrative Resulting Agency Comment Spec In Lab Ruby Keller MD URINE ORDERABLES Performing Organization Address City/[facility]/ZIP Co [place] [address] * (ABNORMAL) Urinalysis with reflex Culture (07/13/2019 5:46 AM EDT) Glucose, Urine Dipstick Negative Negative mg/dL [facility] Protein, Urine Dipstick Negative Negative mg/dL [facility] Bilirubin, Urine Dipstick Negative Negative mg/dL [facility] Comment: Clinical correlation required for positive Urine Bilirubin results as false positive may occur with some drugs and drug related products. If a false positive is suspected a serum total bilirubin should be considered if clinically indicated. Urobilinogen, Urine Dipstick Normal Normal mg/dL [facility] pH, Urn (dipstick) 7.5 5.0 - 8.0 [facility] Blood, Urine Dipstick Trace(A) Negative mg/dL [facility] Ketone, Urine Dipstick Negative Negative mg/dL [facility] Nitrite, Urine Dipstick Negative Negative [facility] Leukocytes, Urine Dipstick Moderate(A) Negative [facility] Appearance, Urine Dipstick Clear Clear [facility] Specific [place] Urine Automated 1.009 1.002 - 1.030 [facility] Color, Urine Dipstick Yellow Yellow [facility] Reflex to Culture Yes [facility] Urine specimen (specimen) 07/13/2019 5:46 AM EDT 07/13/2019 6:00 AM EDT Narrative Resulting Agency Comment Spec In Lab Morro Sena III, MD URINE ORDERABLES Performing Organization Address City/[facility]/ZIP Co de Phone Number [facility] [place] [address] * Differential, Automated (07/13/2019 12:20 AM EDT) Pathologist [facility] Neutrophil % 31.9 % [facility] Neutrophil Absolute 1.80 1.70 - 6.10 x10(3)/[facility] Lymph % 51.7 % [facility] Lymphocytes Abs 2.9 0.9 - 3.2 x10(3)/[facility] Monocyte % 9.1 % [facility] Monocyte Abs 0.5 0.3 - 0.9 x10(3)/[facility] Eos % 6.0 % [facility] Eosinophils Abs 0.3 0.0 - 0.4 x10(3)/[facility] Basophil % 1.1 % [facility] Baso Absolute 0.1 0.0 - 0.1 x10(3)/[facility] Immature Gran % 0.20 % [facility] Comment: Immature granulocytes(IG's)percentage and absolute count will include metamyelocytes, myelocytes, and promyelocytes. Blood smears from CBCs yielding IG's will be scanned manually for concordance. If this scan disagrees with the automated IG or if promyelocytes are noted, a manual differential will be performed. Immature Gran Absolute 0.01 0.00 - 0.04 x10(3)/[facility] Blood specimen (specimen) 07/13/2019 12:20 AM EDT 07/13/2019 12:26 AM EDT Narrative Resulting Agency Comment Spec In Lab Alvaro Hurley MD HEMATOLOGY CELY MCQUEEN [facility] [place] [address] * Hemogram (07/13/2019 12:20 AM EDT) White Blood Cell 5.6 4.0 - 9.5 x10(3)/[facility] Red Blood Cell 4.19 4.00 - 5.21 x10(6)/[facility] Hemoglobin 12.2 11.7 - 15.5 gm/dL [facility] Hematocrit 37.6 35.7 - 45.8 % [facility] Mean Cell Volume 89.7 82.6 - 94.4 fL [facility] Mean Cell Hemoglobin 29.1 27.1 - 32.0 pg [facility] Mean Cell Hemoglobin Concentration 32.4 31.7 - 35.0 gm/dL [facility] Platelet 196 145 - 357 x10(3)/[facility] RDW Standard Deviation 41.7 37.0 - 46.0 fL [facility] RDW coefficient of variation 12.7 11.5 - 14.1 % [facility] Mean Platelet Volume 11.8 7.6 - 12.9 fL [facility] NRBC% auto 0.0 % [facility] NRBC Absolute 0.000 0.000 - 0.000 x10(3)/[facility] Blood specimen (specimen) 07/13/2019 12:20 AM EDT 07/13/2019 12:26 AM EDT Narrative Resulting Agency Comment Spec In Lab Alvaro Hurley MD HEMATOLOGY CELY MCQUEEN [facility] Organization Address City/State/ZIP Co de Phone Number [facility] [place] [address] * APTT (07/13/2019 12:20 AM EDT) Partial Thromboplastin Time 31 25 - 37 sec [facility] Comment: The PTT is NOT appropriate for heparin monitoring. Use the Anti-Xa level for heparin monitoring (HEP UFH) or LMWH monitoring (HEP LMW). A PTT less than 37 seconds generally indicates adequate hemostasis. Blood specimen (specimen) 07/13/2019 12:20 AM EDT 07/13/2019 12:26 AM EDT Narrative Resulting Agency Comment Spec In Lab Mackenzie Weber MD HEMATOLOGY ORDERABLE S Performing Organization Address [facility] Co de Phone Number [facility] [place] [address] * Prothrombin Time (07/13/2019 12:20 AM EDT) Prothrombin Time 12.2 9.4 - 12.5 sec [facility] International Normalization Ratio 1.1 [facility] Comment: An INR <2.0 indicates [...] MD HEMATOLOGY ORDERABLE S Performing Organization Address [facility] Co de Phone Number [facility] [place] [address] * Hepatic Function Panel (07/13/2019 12:20 AM EDT) Protein, Total 6.1 6.1 - 8.0 gm/dL [facility] Albumin 4.0 3.2 - 5.2 gm/dL [facility] Aspartate Aminotransferase 20 0 - 30 unit/L [facility] Alanine Aminotransferase 13 0 - 30 unit/L [facility] Alkaline Phosphatase 95 35 - 105 unit/L [facility] Bilirubin, Total 0.4 0.2 - 1.3 mg/dL [facility] Bilirubin, Direct 0.1 0.0 - 0.3 mg/dL [facility] Blood specimen (specimen) 07/13/2019 12:20 AM EDT 07/13/2019 12:26 AM EDT Narrative Resulting Agency Comment Spec In Lab Mackenzie Weber MD CHEMISTRY ORDERABLES [facility] [place] [address] * (ABNORMAL) Basic Metabolic Panel (non-fasting) (07/13/2019 12:20 AM EDT) Glucose 103 65 - 199 mg/dL [facility] Comment:Diabetes: >=200 mg/d L plus symptoms Blood Urea Nitrogen 17 8 - 18 mg/dL [facility] Creatinine 1.23(H) 0.70 - 1.20 mg/dL [facility] Sodium 143 135 - 145 mmol/L [facility] Potassium 3.9 3.5 - 5.0 mmol/L [facility] Comment: Please note: ??Patients with WBC >100,000 may have falsely elevated Potassium levels. ??For accurate Potassium quantification in these patients send serum separator tube (gold top) for subsequent determinations. ??Contact the Clinical Chemistry Laboratory if there are any questions. Chloride 108(H) 98 - 107 mmol/L [facility] Carbon Dioxide 21(L) 22 - 31 mmol/L [facility] Anion Gap 14 5 - 15 mmol/L [facility] Calcium 9.1 8.5 - 10.5 mg/dL [facility] Est Glomerular Filtration Rate 47(L) >=60 mL/min/1. 73 m?? [facility] Comment: The eGFR was calculated using the CKD-EPI equation. As with all creatinine based estimates of kidney function, eGFR values calculated with the CKD-EPI equation are not accurate in patients with acute kidney failure, extremes of body mass or the acutely ill. [email or web address] eGFR 54(L) >=60 mL/min/1. 73 m?? [facility] Comment: The eGFR was calculated using the CKD-EPI equation. As with all creatinine based estimates of kidney function, eGFR values calculated with the CKD-EPI equation are not accurate in patients with acute kidney failure, extremes of body mass or the acutely ill. [email or web address] Blood specimen (specimen) 07/13/2019 12:20 AM EDT 07/13/2019 12:26 AM EDT Narrative Resulting Agency Comment Spec In Lab Mackenzie Weber MD CHEMISTRY ORDERABLES Performing Organization Address [facility] Co de Phone Number [facility] [place] [address] * Film Library- Storage Only CT Head (07/12/2019 8:29 PM EDT) Narrative [facility] 07/12/2019 8:29 PM EDT This exam is auto-finalizing. It's purpose is for storage only. Morro Sena III, MD IMG FILM LIBRARY ORDERABLES Performing Organization Address [facility] de Phone Number [place], [place] documented in this encounter Visit Diagnoses [...] on Fri07/13/19 at 0330, Until Fri07/13/19 at 193, Wheezing, Shortness of Breath, Routine 525 (Given - Provid er: Sherron Estrella RN) bisacodyL (Dulcolax) suppository 10 mg 10 mg, Rectal, DAILY PRN, Starting on Fri07/13/19 at 0330, Until Fri07/13/19 at 1929, Constipation, Administer if [...] Fri07/13/19 at 0330, Until Fri07/13/19 at 1929, hypertension , Systolic blood pressure (SBP) goal [...] at 1131, Per Protocol, Radiology Contrast, Routine 113 (Given - Provid er: Nydia Zimmerman) labetalol (NORMODYNE,TRANDATE) injection 10-20 mg 10-20 mg, Intravenous, Administer over 2 Minutes, EVERY 15 MIN PRN, Starting on Fri07/13/19 at 0330, Until Fri07/13/19 at 193, High Blood Pressure, - Systolic blood pressure [...] Oral, NIGHTLY PRN, Starting on Fri07/13/19 at 0330, Until Fri07/13/19 at 1929, Constipation, Administer if [...] 1 MIN PRN, Starting on Fri07/13/19 at 0330, Until Fri07/13/19 at 1929, flush, Flush pertains [...] Routine documented in this encounter Care Teams Diabetic Educator Relationship Specialty Start Date End Date Kaylnee Pinedo MD [address] [place] [address] PCP - General 09/21/13 02/21/21 documented as of this encounter
--- OUTSIDE RECORDS SUMMARY | 2024-03-04 21:50 | XMS_ITS | Encounter Summary ---
[place] [address] Care Team Providers Care Health Information Internship Name Role Phone Moira Covarrubias MD Primary Care Provider [phone] Reason for Visit * Consultation (Routine) - Closed Specialty Diagnoses / Procedures Referred By Leidy lemon Referred To Contact Nephrology Diagnoses Stage 3 chronic kidney disease, unspecified whether stage 3a or 3b CKD Renal scarring Dot Briones APRN [facility] [place] [address] [facility] Nephrology [address] [place] [phone] Referral ID Status Reason Start Date Expiration Date V isits Requested Visits Authorized [id number] Closed Consult, Test & Treat 04/10/2021 04/10/2022 1 1 Encounter Details Date Type Department Care Team (Latest Contact Info) Description 07/17/2021 1:00 PM EDT Office Visit Neph[place] [address] Kwame Day MD [facility] [place] [address] Stage 3b chronic kidney disease [...] 60 minutes was spent for reviewing chart, [id number] encounter, ordering labs/medication,documentation in the chart, and coordinating care. RTC 1year CC-MD Kwame Cordova MD 07/22/2021 Hypertension-Nephrology documented in this encounter Plan of Treatment Upcoming Encounters Date Type Department Care Team (Late st Contact Info) Description 03/16/2024 10:15 AM EST Office Visit Audiology at [address] [phone] Anna Hernandez, PhD [facility] [place] [address] 08/03/2024 10:00 AM EDT Office [place] [phone] Deborah Richardson APRN [facility] [place] [address] documented as of this encounter Procedures Procedure [...] Not Calculated 0 - 29 mcg/mg Cr [facility] Comment: Reference Ranges: <30 mcg/mg: [...] 2, 357? 362 Albumin, Urine <3.0 mg/L [facility] Creatinine, Urine 67 mg/dL [facility] Urine 06/28/2022 3:19 PM EDT 06/28/2022 3:35 PM EDT Narrative Resulting Agency Comment Spec In Lab Kwame Day MD URINE ORDERABLES [facility] [address] [place] [address] * Albumin Level (06/28/2022 2:35 PM EDT) Albumin 4.1 3.2 - 5.2 g/dL [facility] Blood 06/28/2022 2:35 PM EDT 06/28/2022 2:45 PM EDT Narrative Resulting Agency Comment Spec In Lab Kwame Day MD CHEMISTRY ORDERABLES Performing Organization Address City/[facility]/ZIP Co de Phone Number [facility] [address] * PTH (06/28/2022 2:35 PM EDT) Parathyroid Hormone 44 15 - 65 pg/mL [facility] Blood 06/28/2022 2:35 PM EDT 06/28/2022 2:46 PM EDT Narrative Resulting Agency Comment Spec In Lab Kwame Day MD CHEMISTRY ORDERABLES Performing Organization Address [facility] Co de Phone Number [facility] [address] * (ABNORMAL) Basic Metabolic Panel (non-fasting) (06/28/2022 2:35 PM EDT) Glucose 102 65 - 199 mg/dL [facility] Comment:Diabetes: >=200 mg/d L plus symptoms Blood Urea Nitrogen 18 8 - 18 mg/dL [facility] Creatinine 1.62(H) 0.70 - 1.20 mg/dL [facility] Sodium 140 135 - 145 mmol/L [facility] Potassium 3.7 3.5 - 5.0 mmol/L [facility] Comment: Please note: ??Patients with WBC >100,000 may have falsely elevated Potassium levels. ??For accurate Potassium quantification in these patients send serum separator tube (gold top) for subsequent determinations. ??Contact the Clinical Chemistry Laboratory if there are any questions. Chloride 105 98 - 107 mmol/L [facility] Carbon Dioxide 26 22 - 31 mmol/L [facility] Anion Gap 9 5 - 15 mmol/L [facility] Calcium 9.2 8.5 - 10.5 mg/dL [facility] Est Glomerular Filtration Rate 35(L) >=60 mL/min/1. 73 m?? [facility] Comment: This patient's estimated GFR [...] Day MD CHEMISTRY ORDERABLES Performing Organization Address City/[facility]/ZIP Co de Phone Number [facility] [address] * Vitamin D, 25-Hydroxy (07/20/2021 1:27 PM EDT) Vitamin D Total 25 OH 39 21 - 100 ng/mL [facility] Vit D Interp Sufficient [facility] Blood 07/20/2021 1:27 PM EDT 07/20/2021 1:50 PM EDT Narrative Resulting Agency Comment Spec In Lab Kwame Day MD CHEMISTRY ORDERABLES [facility] [place] [address] * PTH (07/20/2021 1:27 PM EDT) Parathyroid Hormone 50 15 - 65 pg/mL [facility] Blood 07/20/2021 1:27 PM EDT 07/20/2021 2:15 PM EDT Narrative Resulting Agency Comment Spec In Lab Kwame Day MD CHEMISTRY ORDERABLES [facility] [place] [address] * (ABNORMAL) Basic Metabolic Panel (non-fasting) (07/20/2021 1:27 PM EDT) Glucose 100 65 - 199 mg/dL [facility] Comment:Diabetes: >=200 mg/d L plus symptoms Blood Urea Nitrogen 19(H) 8 - 18 mg/dL [facility] Creatinine 1.41(H) 0.70 - 1.20 mg/dL [facility] Sodium 142 135 - 145 mmol/L [facility] Potassium 3.7 3.5 - 5.0 mmol/L [facility] Comment: Please note: ??Patients with WBC >100,000 may have falsely elevated Potassium levels. ??For accurate Potassium quantification in these patients send serum separator tube (gold top) for subsequent determinations. ??Contact the Clinical Chemistry Laboratory if there are any questions. Chloride 107 98 - 107 mmol/L [facility] Carbon Dioxide 23 22 - 31 mmol/L [facility] Anion Gap 12 5 - 15 mmol/L [facility] Calcium 9.3 8.5 - 10.5 mg/dL [facility] Est Glomerular Filtration Rate 39(L) >=60 mL/min/1. 73 m?? [facility] Comment: This patient? s estimated glomerular [...] In Lab Kwame Day MD CHEMISTRY ORDERABLES [facility] [place] [address] * Urinalysis Microscopic Exam (07/17/2021 2:30 PM EDT) RBC, Urine 1 0 - 4 /HPF [facility] WBC, Urine 0 0 - 5 /HPF [facility] Clean Catch Urine Urine / Unknown 07/17/2021 2:30 PM EDT 07/17/2021 4:00 PM EDT Narrative Resulting Agency Comment Spec In Lab Kwame Day MD URINE ORDERABLES Performing Organization Address City/[facility]/ZIP Co de Phone Number [facility] [address] * (ABNORMAL) Urinalysis with reflex Culture (07/17/2021 2:30 PM EDT) Glucose, Urine Dipstick Negative Negative mg/dL [facility] Protein, Urine Dipstick Negative Negative mg/dL [facility] Bilirubin, Urine Dipstick Negative Negative mg/dL [facility] Comment: Clinical correlation required for positive Urine Bilirubin results as false positive may occur with some drugs and drug related products. If a false positive is suspected a serum total bilirubin should be considered if clinically indicated. Urobilinogen, Urine Dipstick Normal Normal mg/dL [facility] pH, Urn (dipstick) 6.5 5.0 - 8.0 [facility] Blood, Urine Dipstick Trace(A) Negative mg/dL [facility] Ketone, Urine Dipstick Negative Negative mg/dL [facility] Nitrite, Urine Dipstick Negative Negative [facility] Leukocytes, Urine Dipstick Negative Negative [facility] Appearance, Urine Dipstick Clear Clear [facility] Specific [place] Urine Automated 1.007 1.005 - 1.030 [facility] Color, Urine Dipstick Yellow Yellow [facility] Reflex to Culture No [facility] Clean Catch Urine Urine / Unknown 07/17/2021 2:30 PM EDT 07/17/2021 4:00 PM EDT Narrative Resulting Agency Comment Spec In Lab Kwame Day MD URINE ORDERABLES Performing Organization Address City/[facility] Co de Phone Number [facility] [address] * U Albumin/Cre Ratio (07/17/2021 2:30 PM EDT) Albumin / Creatinin Ratio, Urine Not Calculated 0 - 29 mcg/mg Cr [facility] Comment: Reference Ranges: <30 [...] 2, 357? 362 Albumin, Urine <3.0 mg/L [facility] Creatinine, Urine 27 mg/dL [facility] Urine 07/17/2021 2:30 PM EDT 07/17/2021 3:59 PM EDT Narrative Resulting Agency Comment Spec In Lab Kwame Day MD URINE ORDERABLES Performing Organization Address City/[facility]/ZIP Co de Phone Number [facility] [place] [address] * Protein/Creatinine Ratio, urine (07/17/2021 2:30 PM EDT) Creatinine, Urine 27 mg/dL [facility] Protein, Urine <6 0 - 12 mg/dL [facility] Protein / Creatinine Ratio, Urine <0.2 ratio [facility] Urine 07/17/2021 2:30 PM EDT 07/17/2021 3:59 PM EDT Narrative Resulting Agency Comment Spec In Lab Kwame Day MD URINE ORDERABLES [facility] [place] [address] documented in this encounter Visit Diagnoses Diagnosis Stage 3b chronic kidney disease documented in this encounter Care Teams Health Information Internship Relationship Specialty Start Date End Date Moira Covarrubias MD PCP - General Family Medicine 07/17/21 06/27/22 documented as of this encounter
--- OUTSIDE RECORDS SUMMARY | 2024-03-04 21:50 | XMS_ITS | Encounter Summary ---
Author Organization [facility] [place] [address] Care Team Providers Care Manager Category Name Role Phone Amrita Saab DO Primary Care Provider Unava ilable Encounter Details Date Type Department Care Team (Late Contact Info) Description 05/04/2021 [place] [address] Violet Aguirre Social History Tobacco Use Types [...] 10:15 AM EST Office Visit Audiology at [address] [phone] Anna Hernandez, PhD [facility] [place] [address] 08/03/2024 10:00 AM EDT Office [place] [address] Deborah Richardson, OPERATIONS EXPERT [facility] [place] [address] documented as of this encounter Visit Diagnoses Not on filedocumented in this encounter Care Teams Manager Category Relationship Specialty Start Date End Date Amrita Saab DO PCP - General Family Medicine 03/16/21 07/16/21 documented as of this encounter
--- OUTSIDE RECORDS SUMMARY | 2024-03-04 21:50 | XMS_ITS | Encounter Summary ---
Author Organization [facility] [place] [address] Care Team Providers Care Infrastructure Software Engineer Name Role Phone Kaylene Pinedo MD Primary Care Provider [phone] Encounter Details Date Type Department Care Team (Late st Contact Info) Description 05/16/2020 Ancillary Procedure Radiology Library [place] [facility] [address] Dot Briones APRN Social History Tobacco Use Types Packs/Day Years [...] 10:15 AM EST Office Visit Audiology at [address] [address] Anna Hernandez, PhD [facility] [place] [address] 08/03/2024 10:00 AM EDT [place] [phone] Deborah Richardson CUTTER OPERATOR [facility] [place] [address] documented as of this encounter Procedures Procedure [...] Vinson APRN IMG FILM LIBRAR Y ORDERABLES [place], [place] documented in this encounter Visit Diagnoses Not on filedocumented in this encounter Care Teams Infrastructure Software Engineer Relationship Specialty Start Date End Date Kaylene Pinedo MD [address] [place] [address] PCP - General 09/21/13 02/21/21 documented as of this encounter
--- OUTSIDE RECORDS SUMMARY | 2024-03-04 21:50 | XMS_ITS | Encounter Summary ---
Author Organization [facility] [place] [address] Care Team Providers Care Mechanic Welder Truck Driver Name Role Phone Moira Covarrubias MD Primary Care Provider [phone] Encounter Details Date Type Department Care Team (Late st Contact Info) Description 05/13/2022 11:20 AM EDT [place] [address] Deborah Richardson APRN [facility] [place] [address] Overactive bladder; IC (interstitial cystitis); History of [...] encounter Patient Instructions * Patient Instructions* Deborah Richardson, PROTEIN SPECIALIST - 05/13/2022 11:20 AM EDT Images from [...] can Make to Improve Bladder Problems [employer] OAB Clinical Care [address] For more information on better bladder control visit: [email or web address] Controlling You Bladder Urges People with overactive [...] Richardson APRN - 05/13/2022 11:[address] [facility] SECTION OF UROLOGY OUT PATIENT FOLLOW [...] & family, never a smoker, no etoh. 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 OBJECTIVE FINDINGS: Physical Exam: Blood Pressure 129/74 [...] satisfaction Deborah Richardson APRN Section of Urology [phone] documented in this encounter Plan of Treatment Upcoming Encounters Date Type Department Care Team (Late st Contact Info) Description 03/16/2024 10:15 AM EST Office Visit Audiology at [address] [address] Anna Hernandez, PhD [facility] [place] [address] 08/03/2024 10:00 AM EDT [place] [address] Deborah Richardson APRN [facility] [place] [address] documented as of this encounter Visit Diagnoses Diagnosis Overactive bladder Hypertonicity of bladder IC (interstitial cystitis) Chronic interstitial cystitis History of UTI Personal history of urinary (tract) infection Mixed stress and urge urinary incontinence Mixed incontinence urge and stress (male)(female) documented in this encounter Care Teams Mechanic Welder Truck Driver Relationship Specialty Start Date End Date Moira Covarrubias MD PCP - General Family Medicine 07/17/21 06/27/22 documented as of this encounter
--- OUTSIDE RECORDS SUMMARY | 2024-03-04 21:50 | XMS_ITS | Encounter Summary ---
Author Organization [facility] Address [facility] [place] [address] Care Team Providers Care Equity Structurer Name Role Phone Moira Covarrubias MD Primary Care Provider [phone] Encounter Details Date Type Department Care Team (Latest Contact Info) Description 01/16/2022 2:17 PM EST - 01/16/2022 11:59 PM [facility] Hospital Encounter XRay at [address] [place] [address] Lonnie Agee MD [facility] [place] [address] Chronic pain of both knees Discharge Disposition: [...] 1 tablet by mouth daily. 30 tablet 07/31/2021 05/13/2022 cyanocobalamin, vitamin B-12, 1,000 mcg/mL Drops Take by mouth every other day. 06/28/2022 TURMERIC ORAL Take 3 capsules by mouth [...] AM EST Office Visit Audiology at [address] [address] Anna Hernandez, PhD [facility] [address] 08/03/2024 10:00 AM EDT [place] [phone] Deborah Richardson, WARD SERVICE SUPERVISOR [facility] [place] [address] documented as of this encounter Procedures Procedure Name Priority Date/Time Associated Diagnosis Comments XR KNEE STANDING ALIGNMENT AP LAT [place] SKYLINE BILAT Routine 01/16/2022 2:36 PM EST Chronic pain of both knees documented in this encounter Results * XR Knee Standing Alignment AP Lat [place] Pearl Bilat (01/16/2022 2:36 PM EST) Anatomical Region [...] who have questions please contact the health janitor caretaker that requested your imaging first. ? Electronically signed by: Kristin Alaniz MD, [facility] ([phone]), at 01/16/2022 3:20 PM Narrative 01/16/2022 3:20 [...] patients who have questions please contactthe health janitor caretaker that requested your imaging first. Electronically signed by: Kristin Alaniz MD, [facility]([phone]), at 01/16/2022 3:20 PM Lonnie Agee MD IMG DX ORDERABLES documented in this encounter Visit Diagnoses Diagnosis Chronic pain of both knees documented in this encounter Care Teams Equity Structurer Relationship Specialty Start Date End Date Moira Covarrubias MD PCP - General Family Medicine 07/17/21 06/27/22 documented as of this encounter
--- OUTSIDE RECORDS SUMMARY | 2024-03-04 21:50 | XMS_ITS | Encounter Summary ---
[place] [address] Care Team Providers Care Re Recording Mixer Name Role Phone Moira Covarrubias MD Primary Care Provider Reason for Referral * Consultation (Routine) - Denied Specialty Diagnoses / Procedures Referred By Leidy lemon Referred To Contact [facility] Diagnoses Pain in thoracic spine needs denial letter Moira Covarrubias MD [address] [place] [phone] [facility] [place] [address] Referral ID Status Reason Start Date Expiration Date V isits Requested Visits Authorized [id number] Denied Consult, Test & Treat PCP Updated and/or Approved 01/18/2022 01/18/2023 6 0 Encounter Details Date Type Department Care Team (Latest Contact Info) Description 01/18/2022 Transcribe Orders eDH Incoming Referrals [phone] Moira Covarrubias MD [address] [place] [address] Pain in thoracic spine Social History [...] AM EST Office Visit Audiology at [address] [address] Anna Hernandez, PhD [facility] [place] [address] 08/03/2024 10:00 AM EDT [place] [phone] Deborah Richardson SERVICE PLUMBER [facility] [place] [address] Scheduled Referrals Name Type Priority Associated Diagnoses Order Schedule Referral to Pain Management Outpatient Referral Routine Pain in thoracic spine Ordered: 01/18/2022 documented as of this encounter Visit Diagnoses Diagnosis Pain in thoracic spine documented in this encounter Care Teams Re Recording Mixer Relationship Specialty Start Date End Date Moira Covarrubias MD PCP - General Family Medicine 07/17/21 06/27/22 documented as of this encounter
--- OUTSIDE RECORDS SUMMARY | 2024-03-04 21:50 | XMS_ITS | Encounter Summary ---
Author Organization [facility] [place] [address] Care Team Providers Care Orchid Hand Name Role Phone Moira Covarrubias MD Primary Care Provider [phone] Encounter Details Date Type Department Care Team [...] AM EST Office Visit Audiology at [address] [phone] Anna Hernandez, PhD [facility] [place] [address] 08/03/2024 10:00 AM EDT Office [place] [phone] Deborah Richardson TASSEL MAKING MACHINE OPERATOR [facility] [place] [address] documented as of this encounter Visit Diagnoses Not on filedocumented in this encounter Care Teams Orchid Hand Relationship Specialty Start Date End Date Moira Covarrubias MD PCP - General Family Medicine 07/17/21 06/27/22 documented as of this encounter
--- OUTSIDE RECORDS SUMMARY | 2024-03-04 21:50 | XMS_ITS | Encounter Summary ---
Author Organization [facility]ly [facility] [place] [address] Care Team Providers Care Forest Fire Prevention Specialist Name Role Phone Amrita Saab DO Primary Care Provider Unava ilable Encounter Details Date Type Department Care Team (Late st Contact Info) Description 05/04/2021 [place] [phone] Dot Briones APRN Social History Tobacco Use [...] I would send her a message via [employer]. * Telephone Encounter - Violet Aguirre, [facility] - 05/04/2021 12:54 PM EDT Ruthann stated that she is having UTI symptoms and would like to take the Keflex. She stated she was concerned this is the second time of having E. Coli in her urine and would like to speak with Dot to see what could be causing this. * Telephone Encounter - Megan Castro - 05/04/2021 12:33 PM EDT PHONE: [phone] Pt returning Violet's phone call. documented in this encounter Plan of Treatment Upcoming Encounters Date Type Department Care Team (Late st Contact Info) Description 03/16/2024 10:15 AM EST Office Visit Audiology at [address] [address] Anna Hernandez, PhD [facility] [place] [address] 08/03/2024 10:00 AM EDT [place] [address] Deborah Richardson HAND [facility] [place] [address] documented as of this encounter Visit Diagnoses Not on filedocumented in this encounter Care Teams Forest Fire Prevention Specialist Relationship Specialty Start Date End Date Amrita Saab DO PCP - General Family Medicine 03/16/21 07/16/21 documented as of this encounter
--- OUTSIDE RECORDS SUMMARY | 2024-03-04 21:50 | XMS_ITS | Encounter Summary ---
Author Organization [facility] [place] [address] Care Team Providers Care Sports Recruiter Name Role Phone Kaylene Pinedo MD Primary Care Provider [phone] Encounter Details Date Type Department Care Team (Late st Contact Info) Description 05/29/2015 Telephone Nephrology [place] [address] [address] [place] Social History Tobacco [...] 10:15 AM EST Office Visit Audiology at [address] [phone] Anna Hernandez, PhD [facility] [place] [address] 08/03/2024 10:00 AM EDT Office [place] [address] Deborah Richardson APRN [facility] [place] [address] documented as of this encounter Visit Diagnoses Not on filedocumented in this encounter Care Teams Sports Recruiter Relationship Specialty Start Date End Date Kaylene Pinedo MD [address] [place] [address] PCP - General 09/21/13 02/21/21 documented as of this encounter
--- OUTSIDE RECORDS SUMMARY | 2024-03-04 21:50 | XMS_ITS | Encounter Summary ---
[place] [address] Care Team Providers Care Human Relations Manager Name Role Phone Moira Covarrubias MD Primary Care Provider [phone] Reason for Visit * Allergy Testing (Routine) - Closed Specialty Diagnoses / Procedures Referred By Leidy lemon Referred To Contact Allergy Diagnoses Encounter for allergy testing Darrius Mackay MD [address] [place] [id number] [facility] [address] [place] [phone] Referral ID Status Reason Start Date Expiration Date V isits Requested Visits Authorized [id number] Closed Consult, Test & Treat PCP Updated and/or Approved 03/22/2022 03/22/2023 6 6 Encounter Details Date Type Department Care Team (Late st Contact Info) Description 04/23/2022 9:00 AM EST [place] [address] Mackenzie Cooper MD Multiple drug allergies Social History Tobacco Use [...] from the original note were not included. [facility] Section of Allergy and Clinical Immunology Date of Service: 04/23/22 Primary Care Provider: Moira Capone MD Patient Age: 67 y.o. Patient : 1955 Reason for Evaluation: possible medication allergy Historian: Patient Subjective: Patient ID: Ruthann Wolf is a 67 y.o. female who presents for evaluation of possible medicationallergy. Her fruit raiser plans to use fluorescein dye for a [...] mechanisms including non-specific mast cell and basophil logistics engineering manager release (non-allergic histamine release) attributed to [id number] [...] Mackenzie Cooper MD [place] [address] [email or web address] documented in this encounter Plan of Treatment Upcoming Encounters Date Type Department Care Team (Late st Contact Info) Description 03/16/2024 10:15 AM EST Office Visit Audiology at [address] [address] Anna Hernandez, PhD [facility] [place] [address] 08/03/2024 10:00 AM EDT Office [place] [address] Deborah Richardson APRN [facility] [address] documented as of this encounter Visit Diagnoses Diagnosis Multiple drug allergies Other drug allergy documented in this encounter Care Teams Human Relations Manager Relationship Specialty Start Date End Date Moira Covarrubias MD PCP - General Family Medicine 07/17/21 06/27/22 documented as of this encounter
--- OUTSIDE RECORDS SUMMARY | 2024-03-04 21:50 | XMS_ITS | Encounter Summary ---
Author Organization [facility] [place] [address] Care Team Providers Care Dimpling Machine Operator Name Role Phone Moira Covarrubias MD Primary Care Provider [phone] Encounter Details Date Type Department Care Team (Latest Contact Info) Description 07/20/2021 1:15 PM EDT Laboratory Appointment Lab [address] [place] [phone] Stage 3b chronic kidney disease Social History [...] 10:15 AM EST Office Visit Audiology at [address] [phone] Anna Hernandez, PhD [facility] [place] [address] 08/03/2024 10:00 AM EDT Office [place] [address] Deborah Richardson, GAUGER DELIVERY [facility] [place] [address] documented as of this encounter Procedures Procedure [...] chronic kidney disease BASIC METABOLIC PANEL Routine 07/20/2021 1:27 PM EDT Stage 3b chronic kidney disease documented in this encounter Results * Differential, Automated (07/20/2021 1:27 PM EDT) Neutrophil % 64.0 % [facility] Neutrophil Absolute 5.48 1.70 - 6.10 x10(3)/[facility] Lymph % 25.0 % [facility] Lymphocytes Abs 2.1 0.9 - 3.2 x10(3)/[facility] Monocyte % 7.5 % [facility] Monocyte Abs 0.6 0.3 - 0.9 x10(3)/[facility] Eos % 2.5 % [facility] Eosinophils Abs 0.2 0.0 - 0.4 x10(3)/[facility] Basophil % 0.6 % [facility] Baso Absolute 0.0 0.0 - 0.1 x10(3)/[facility] Immature Gran % 0.40 % [facility] Comment: Immature granulocytes(IG's)percentage and absolute count will include metamyelocytes, myelocytes, and promyelocytes. Blood smears from CBCs yielding IG's will be scanned manually for concordance. If this scan disagrees with the automated IG or if promyelocytes are noted, a manual differential will be performed. Immature Gran Absolute 0.03 0.00 - 0.04 x10(3)/[facility] Blood 07/20/2021 1:27 PM EDT 07/20/2021 1:49 PM EDT Narrative Resulting Agency Comment Spec In Lab Kwame Day MD HEMATOLOGY ORDERABLE S [facility] [place] [address] * Hemogram (07/20/2021 1:27 PM EDT) White Blood Cell 8.6 4.0 - 9.5 x10(3)/[facility] Red Blood Cell 4.36 4.00 - 5.21 x10(6)/[facility] Hemoglobin 12.7 11.7 - 15.5 g/dL [facility] Hematocrit 38.8 35.7 - 45.8 % [facility] Mean Cell Volume 89.0 82.6 - 94.4 fL [facility] Mean Cell Hemoglobin 29.1 27.1 - 32.0 pg [facility] Mean Cell Hemoglobin Concentration 32.7 31.7 - 35.0 g/dL [facility] Platelet 217 145 - 357 x10(3)/[facility] RDW Standard Deviation 42.5 37.0 - 46.0 fL [facility] RDW coefficient of variation 12.8 11.5 - 14.1 % [facility] Mean Platelet Volume 12.3 7.6 - 12.9 fL [facility] NRBC% auto 0.0 % [facility] NRBC Absolute 0.000 0.000 - 0.000 x10(3)/mcL [facility] Blood 07/20/2021 1:27 PM EDT 07/20/2021 1:49 PM EDT Narrative Resulting Agency Comment Spec In Lab Kwame Day MD HEMATOLOGY ORDERABLE S [facility] [place] [address] * (ABNORMAL) Basic Metabolic Panel (non-fasting) (07/20/2021 1:27 PM EDT) Glucose 100 65 - 199 mg/dL [facility] Comment:Diabetes: >=200 mg/d L plus symptoms Blood Urea Nitrogen 19(H) 8 - 18 mg/dL [facility] Creatinine 1.41(H) 0.70 - 1.20 mg/dL [facility] Sodium 142 135 - 145 mmol/L [facility] Potassium 3.7 3.5 - 5.0 mmol/L [facility] Comment: Please note: ??Patients with WBC >100,000 may have falsely elevated Potassium levels. ??For accurate Potassium quantification in these patients send serum separator tube (gold top) for subsequent determinations. ??Contact the Clinical Chemistry Laboratory if there are any questions. Chloride 107 98 - 107 mmol/L [facility] Carbon Dioxide 23 22 - 31 mmol/L [facility] Anion Gap 12 5 - 15 mmol/L [facility] Calcium 9.3 8.5 - 10.5 mg/dL [facility] Est Glomerular Filtration Rate 39(L) >=60 mL/min/1. 73 m?? [facility] Comment: This patient? s [...] Day MD CHEMISTRY ORDERABLES Performing Organization Address City/[facility]/ZIP Co de Phone Number [facility] [place] [address] * PTH (07/20/2021 1:27 PM EDT) Parathyroid Hormone 50 15 - 65 pg/mL [facility] Blood 07/20/2021 1:27 PM EDT 07/20/2021 2:15 PM EDT Narrative Resulting Agency Comment Spec In Lab Kwame Day MD CHEMISTRY ORDERABLES Performing Organization Address [facility] Co de Phone Number [facility] [place] [address] * Vitamin D, 25-Hydroxy (07/20/2021 1:27 PM EDT) Vitamin D Total 25 OH 39 21 - 100 ng/mL [facility] Vit D Interp Sufficient [facility] Blood 07/20/2021 1:27 PM EDT 07/20/2021 1:50 PM EDT Narrative Resulting Agency Comment Spec In Lab Kwame aDy MD CHEMISTRY ORDERABLES Performing Organization Address [facility] Co de Phone Number [facility] [place] [address] documented in this encounter Visit Diagnoses Diagnosis Stage 3b chronic kidney disease documented in this encounter Care Teams Dimpling Machine Operator Relationship Specialty Start Date End Date Moira Covarrubias MD PCP - General Family Medicine 07/17/21 06/27/22 documented as of this encounter
--- OUTSIDE RECORDS SUMMARY | 2024-03-04 21:50 | XMS_ITS | Encounter Summary ---
Author Organization [facility] [place] [address] Care Team Providers Care Hearing Dog Trainer Name Role Phone KaiserElkeAmrita Primary Care Provider Unava ilable Encounter Details Date Type Department Care Team (Late st Contact Info) Description 06/12/2021 Notes Only Urology at [facility] [place] [address] Dot Briones APRN Social History Tobacco Use [...] of this encounter Progress Notes * Dot Broines APRN - 06/12/2021 7:12 AM EDT Labs [...] 10:15 AM EST Office Visit Audiology at [address] [phone] Anna Hernandez, PhD [facility] [place] [address] 08/03/2024 10:00 AM EDT Office [place] [address] Deborah Richardson SPOOL WINDER [facility] [place] [address] documented as of this encounter Visit Diagnoses Not on filedocumented in this encounter Care Teams Hearing Dog Trainer Relationship Specialty Start Date End Date Amrita Saab DO PCP - General Family Medicine 03/16/21 07/16/21 documented as of this encounter
--- OUTSIDE RECORDS SUMMARY | 2024-03-04 21:50 | XMS_ITS | Encounter Summary ---
Author Organization [facility] [place] [address] Care Team Providers Care Medical Office Receptionist Assistant Name Role Phone KaiserElkeAmrita Primary Care Provider Unava ilable Encounter Details Date Type Department Care Team (Late st Contact Info) Description 05/03/2021 [place] [address] Dot Briones APRN Social History Tobacco Use [...] AM EST Office Visit Audiology at [address] [phone] Anna Hernandez, PhD [facility] [place] [address] 08/03/2024 10:00 AM EDT [place] [phone] Deborah Richardson, TRENCH DIGGER HELPER [facility] [address] documented as of this encounter Visit Diagnoses Not on filedocumented in this encounter Care Teams Medical Office Receptionist Assistant Relationship Specialty Start Date End Date Amrita Saab DO PCP - General Family Medicine 03/16/21 07/16/21 documented as of this encounter
--- OUTSIDE RECORDS SUMMARY | 2024-03-04 21:50 | XMS_ITS | Encounter Summary ---
[place] [address] Care Team Providers Care Sketcher Name Role Phone Moira Covarrubias MD Primary Care Provider [phone] Reason for Referral * Allergy Testing (Routine) - Closed Specialty Diagnoses / Procedures Referred By Leidy lemon Referred To Contact Allergy Diagnoses Encounter for allergy testing Darrius Mackay MD [address] [address] [facility] [address] [place] [address] Referral ID Status Reason Start Date Expiration Date V isits Requested Visits Authorized [id number] Closed Consult, Test & Treat PCP Updated and/or Approved 03/22/2022 03/22/2023 6 6 Encounter Details Date Type Department Care Team (Late st Contact Info) Description 03/22/2022 Transcribe Orders eDH Incoming Referrals [phone] Darrius Mackay MD [address] [address] Encounter for allergy testing Social History Tobacco [...] AM EST Office Visit Audiology at [address] [phone] Anna Hernandez, PhD [facility] [place] [address] 08/03/2024 10:00 AM EDT Office [place] [phone] Deborah Richardson, BUSINESS BANKER [facility] [place] [address] Scheduled Referrals Name Type Priority Associated Diagnoses Orde r Schedule Referral to Allergy Outpatient Referral Routine Encounter for allergy testing Ordered: 03/22/2022 documented as of this encounter Visit Diagnoses Diagnosis Encounter for allergy testing Diagnostic skin and sensitization tests documented in this encounter Care Teams Sketcher Relationship Specialty Start Date End Date Moira Covarrubias MD PCP - General Family Medicine 07/17/21 06/27/22 documented as of this encounter
--- OUTSIDE RECORDS SUMMARY | 2024-03-04 21:50 | XMS_ITS | Encounter Summary ---
Author Organization [facility] [place] [address] Care Team Providers Care English Professor Name Role Phone Kaiser Amrita RICK Primary Care Provider Unava ilable Encounter Details Date Type Department Care Team (Late st Contact Info) Description 05/17/2021 [place] [phone] Dot Briones APRN Stage 3 chronic kidney disease, unspecified whether [...] AM EST Office Visit Audiology at [address] [phone] Anna Hernandez, PhD [facility] [place] [address] 08/03/2024 10:00 AM EDT [place] [address] Deborah Richardson PREFORMER IMPREGNATED FABRICS [facility] [place] [address] documented as of this encounter Visit Diagnoses Diagnosis Stage 3 chronic kidney disease, unspecified whether stage 3a or 3b CKD documented in this encounter Care Teams English Professor Relationship Specialty Start Date End Date Amrita Saab DO PCP - General Family Medicine 03/16/21 07/16/21 documented as of this encounter
--- OUTSIDE RECORDS SUMMARY | 2024-03-04 21:50 | XMS_ITS | Encounter Summary ---
Author Organization [facility] [place] [address] Care Team Providers Care Emergency Room Nurse Name Role Phone Kaylene Pinedo MD Primary Care Provider [phone] Encounter Details Date Type Department Care Team (Late st Contact Info) Description 05/22/2015 Telephone Nephrology [place] [address] [address] [place] Social History Tobacco [...] 10:15 AM EST Office Visit Audiology at [address] [phone] Anna Hernandez, PhD [facility] [place] [address] 08/03/2024 10:00 AM EDT Office [place] [address] Deborah Richardson APRN [facility] [place] [address] documented as of this encounter Visit Diagnoses Not on filedocumented in this encounter Care Teams Emergency Room Nurse Relationship Specialty Start Date End Date Kaylene Pinedo MD [address] [place] [address] PCP - General 09/21/13 02/21/21 documented as of this encounter
--- OUTSIDE RECORDS SUMMARY | 2024-03-04 21:50 | XMS_ITS | Encounter Summary ---
[place] [address] Care Team Providers Care Cut Lace Machine Operator Name Role Phone Amrita Saab DO Primary Care Provider Unava ilable Reason for Referral * Consultation (Routine) - Closed Specialty Diagnoses / Procedures Referred By Contac t Referred To Contact Nephrology Diagnoses Stage 3 chronic kidney disease, unspecified whether stage 3a or 3b CKD Renal scarring Dot Briones APRN [facility] [address] [facility] Nephrology [address] [place] [phone] Referral ID Status Reason Start Date Expiration Date V isits Requested Visits Authorized [id number] Closed Consult, Test & Treat 04/10/2021 04/10/2022 1 1 Reason for Visit * Consultation (Routine) - Closed Specialty Diagnoses / Procedures Referred By Contac t Referred To Contact Urology Diagnoses Urinary tract infection, site not specified Moira Covarrubias MD [address] [place] [address] [facility] [place] [address] Referral ID Status Reason Start Date Expiration Date V isits Requested Visits Authorized [id number] Closed Consult, Test & Treat [facility] PCP Updated and/or Approved 02/20/2021 02/20/2022 10 10 Encounter Details Date Type Department Care Team (Latest Contact Info) Description 04/10/2021 11:00 AM EST TH Visit (TeleHealth) [place] [address] Dot Briones APRN Stage 3 chronic kidney [...] Briones APRN - 04/10/2021 11:00 AM EST [facility] SECTION OF UROLOGY NEW PATIENT ASSESSMENT [...] not have the link for video. Ruthann Wlof consented to conduct this clinical encounter by telephone. The patient acknowledges that the insurance may be billed for the care provided, similar to an in person appointment. The patient is currently in [place]. Prior to beginning the visit, I confirmed the patients name and date of . I obtained the patient's consent to receiving health care services at [facility] through telemedicine. We discussed the opportunities and limitations of delivering health care services through telemedicine. I told the patient that the telemedicine service is being delivered over a secure connection, except in the event of emergency conditions when such requirements may be waived. [facility] available for patient's review in -'s patient portal, myD-H. 02/2021: pt saw PCP with [facility] and [...] has CKD and does not see a Check Processing Clerk. She is most concerned about the fact that she has no risk factors for CKD, but she did have an elevated cre decades ago. She was then seenby a slab off mill tender, and an US in the past showed [...] concern today. She is not seeing a slab off mill tender but wants to. She does leak with [...] sugar as well. She is seeing a telecom field technician. She has issues withfood and what she can eat. No motrin with kidney issues. Only tylenol Was on amitriptyline recently for GI issues, she had GERD with this. Takes pantoprazole. She had a renal US recently. She had an MRI recently-no liver cancer. This was done at [place]. ROS: Constitutional: No fevers, chills, weight gain/loss, [...] rashes. Psych: Denies depression or anxiety. Gyne: G 4 P 1 #1 hysterectomy [...] to divorce, never a smoker, no etoh. 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 cre 03/20/2021, GFR is 35 she thinks [...] her renal US and MRI results from [place] All questions answered to her apparent satisfaction She did not have the link today for the video, so we talked by phone. 40 min spent with pt in discussion, review of old record, and review of sx/CKD. Dot Vinson APRN Section of Urology [phone] documented in this encounter Plan of Treatment Upcoming Encounters Date Type Department Care Team (Late st Contact Info) Description 03/16/2024 10:15 AM EST Office Visit Audiology at [address] [phone] Anna Hernandez, PhD [facility] [place] [address] 08/03/2024 10:00 AM EDT Office [place] [address] Deborah Richardson CUSHION PADDER [facility] [address] Scheduled Referrals Name Type Priority Associated Diagnoses [...] ureter documented in this encounter Care Teams Cut Lace Machine Operator Relationship Specialty Start Date End Date Amrita Saab DO PCP - General Family Medicine 03/16/21 07/16/21 documented as of this encounter
--- OUTSIDE RECORDS SUMMARY | 2024-03-04 21:50 | XMS_ITS | Encounter Summary ---
Author Organization [facility] [place] [address] Care Team Providers Care Centrifugal Separator Name Role Phone Kaylene Pinedo MD Primary Care Provider Encounter Details Date Type Department Care Team (Late st Contact Info) Description 02/20/2021 Ancillary Procedure Radiology Library at [facility] [place] [address] Dot Briones APRN Social History Tobacco Use [...] 10:15 AM EST Office Visit Audiology at [address] [phone] Anna Hernandez, PhD [facility] [place] [address] 08/03/2024 10:00 AM EDT Office [place] [phone] Deborah Richardson VOLUMETRIC WEIGHER [facility] [place] [address] documented as of this encounter Procedures Procedure [...] Vinson APRN IMG FILM LIBRAR Y ORDERABLES [place], [place] documented in this encounter Visit Diagnoses Not on filedocumented in this encounter Care Teams Centrifugal Separator Relationship Specialty Start Date End Date Kaylene Pinedo MD [address] [place] [address] PCP - General 09/21/13 02/21/21 documented as of this encounter
--- OUTSIDE RECORDS SUMMARY | 2024-03-04 21:50 | XMS_ITS | Encounter Summary ---
Author Organization [facility] [place] [address] Care Team Providers Care Software Test Automation Engineer Name Role Phone KaiserAmrita Primary Care Provider Unava ilable Encounter Details Date Type Department Care Team (Late st Contact Info) Description 05/17/2021 [place] [phone] Dot Briones APRN Dysuria Social History Tobacco Use Types Packs/Day [...] EDT Pt will do repeat UA/culture at [place]. Will wait for results. documented in this encounter Plan of Treatment Upcoming Encounters Date Type Department Care Team (Late st Contact Info) Description 03/16/2024 10:15 AM EST Office Visit Audiology at [address] [phone] Anna Hernandez, PhD [facility] [place] [address] 08/03/2024 10:00 AM EDT [place] [address] Deborah Richardson APRN [facility] [place] [address] documented as of this encounter Visit Diagnoses Diagnosis Dysuria documented in this encounter Care Teams Software Test Automation Engineer Relationship Specialty Start Date End Date Amrita Saab DO PCP - General Family Medicine 03/16/21 07/16/21 documented as of this encounter
--- OUTSIDE RECORDS SUMMARY | 2024-03-04 21:50 | XMS_ITS | Encounter Summary ---
Author Organization [facility] [place] [address] Care Team Providers Care Histological Illustrator Name Role Phone Moira Covarrubias MD Primary Care Provider [phone] Reason for Referral * Consultation (Routine) - Closed Specialty Diagnoses / Procedures Referred By Leidy lemon Referred To Contact Dermatology Diagnoses Encounter for allergy testing Darrius Mackay MD [address] [address] Mick Contreras MD [address] [facility] [place] [address] Referral ID Status Reason Start Date Expiration Date V isits Requested Visits Authorized [id number] Closed Consult, Test & Treat 03/20/2022 03/20/2023 1 1 Encounter Details Date Type Department Care Team (Late st Contact Info) Description 03/20/2022 Transcribe Orders eDH Incoming Referrals [phone] Darrius Mackay MD [address] [address] Encounter for allergy testing Social History Tobacco [...] 10:15 AM EST Office Visit Audiology at [address] [address] Anna Hernandez, PhD [facility] [place] [address] 08/03/2024 10:00 AM EDT [place] [phone] Deborah Richardson, WATCH MANUFACTURING SUPERVISOR [facility] [place] [address] Scheduled Referrals Name Type Priority Associated Diagnoses Order Schedule Referral to Dermatology Outpatient Referral Routine Encounter for allergy testing Ordered: 03/20/2022 documented as of this encounter Visit Diagnoses Diagnosis Encounter for allergy testing Diagnostic skin and sensitization tests documented in this encounter Care Teams Histological Illustrator Relationship Specialty Start Date End Date Moira Covarrubias MD PCP - General Family Medicine 07/17/21 06/27/22 documented as of this encounter
--- OUTSIDE RECORDS SUMMARY | 2024-03-04 21:50 | XMS_ITS | Encounter Summary ---
Author Organization [facility] [place] [address] Care Team Providers Care Hot Top Liner Helper Name Role Phone Moira Covarrubias MD Primary Care Provider [phone] Encounter Details Date Type Department Care Team [...] AM EST Office Visit Audiology at [address] [phone] Anna Hernandez, PhD [facility] [place] [address] 08/03/2024 10:00 AM EDT Office [place] [phone] Deborah Richardson CHANGE MANAGEMENT MANAGER [facility] [place] [address] documented as of this encounter Visit Diagnoses Not on filedocumented in this encounter Care Teams Hot Top Liner Helper Relationship Specialty Start Date End Date Moira Covarrubias MD PCP - General Family Medicine 07/17/21 06/27/22 documented as of this encounter
--- OUTSIDE RECORDS SUMMARY | 2024-03-04 21:50 | XMS_ITS | Encounter Summary ---
Author Organization [facility] [place] [address] Care Team Providers Care Employment Manager Name Role Phone Kaylene Pinedo MD Primary Care Provider [phone] Encounter Details Date Type Department Care Team (Late st Contact Info) Description 07/12/2019 8:30 PM EDT Ancillary Procedure Radiology Library at [facility] [place] [address] Social History Tobacco Use Types Packs/Day Years [...] 10:15 AM EST Office Visit Audiology at [address] [address] Anna Hernandze, PhD [facility] [place] [address] 08/03/2024 10:00 AM EDT [place] [phone] Deborah Richardson, CHARTER DRIVER [facility] [place] [address] documented as of this encounter Procedures Procedure Name Priority Date/Time Associated Diagnosis Comments FILM LIBRARY STORAGE ONLY CT HEAD STAT 07/12/2019 8:29 PM EDT documented in this encounter Results * Film Library- Storage Only CT Head (07/12/2019 8:29 PM EDT) Narrative EDY - 07/12/2019 8:29 PM EDT This exam is auto-finalizing. It's purpose is for storage only. Morro Sena III, MD IMG FILM LIBRARY ORDERABLES [place], [place] documented in this encounter Visit Diagnoses Not on filedocumented in this encounter Care Teams Employment Manager Relationship Specialty Start Date End Date Kaylene Pinedo MD [address] [place] [address] PCP - General 09/21/13 02/21/21 documented as of this encounter
--- OUTSIDE RECORDS SUMMARY | 2024-03-04 21:50 | XMS_ITS | Encounter Summary ---
Author Organization [facility] [place] [address] Care Team Providers Care It Assistant Name Role Phone Moira Covarrubias MD Primary Care Provider [phone] Encounter Details Date Type Department Care Team [...] 10:15 AM EST Office Visit Audiology at [address] [phone] Anna Hernandez, PhD [facility] [place] [address] 08/03/2024 10:00 AM EDT Office [place] [phone] Deborah Richardson ASSISTANT WOMEN'S SOCCER COACH [facility] [place] [address] documented as of this encounter Visit Diagnoses Not on filedocumented in this encounter Care Teams It Assistant Relationship Specialty Start Date End Date Moira Covarrubias MD PCP - General Family Medicine 07/17/21 06/27/22 documented as of this encounter
--- OUTSIDE RECORDS SUMMARY | 2024-03-04 21:50 | XMS_ITS | Encounter Summary ---
Author Organization [facility] [place] [address] Care Team Providers Care Maxillofacial Prosthodontist Name Role Phone Moira Covarrubias MD Primary Care Provider [phone] Reason for Visit * Reason Onset Date Comments Results 03/01/2022 Encounter Details Date Type Department Care Team (Late st Contact Info) Description 03/01/2022 [place] [phone] Clinic, Dr Agee Team None Results Social [...] Who is calling?[facility] call back number: [phone] Can we leave a message? yes What study is patient calling about? xrays Per [facility] the study was done: 01/16/2022 Per [facility] the results are final: yes documented in this encounter Plan of Treatment Upcoming Encounters Date Type Department Care Team (Late st Contact Info) Description 03/16/2024 10:15 AM EST Office Visit Audiology at [address] [phone] Anna Hernandez, PhD [facility] [place] [address] 08/03/2024 10:00 AM EDT [place] [phone] Deborah Richardson CABLE INSTALLER [facility] [place] [address] documented as of this encounter Visit Diagnoses Not on filedocumented in this encounter Care Teams Maxillofacial Prosthodontist Relationship Specialty Start Date End Date Moira Covarrubias MD PCP - General Family Medicine 07/17/21 06/27/22 documented as of this encounter
--- OUTSIDE RECORDS SUMMARY | 2024-03-04 21:50 | XMS_ITS | Encounter Summary ---
Author Organization [facility] [place] [address] Care Team Providers Care Weigher Operator Name Role Phone Moira Covarrubias MD Primary Care Provider [phone] Encounter Details Date Type Department Care Team (Late st Contact Info) Description 03/04/2022 Telephone [facility] [place] [phone] Latricia Sena Social History Tobacco Use Types [...] 10:15 AM EST Office Visit Audiology at [address] [phone] Anna Hernandez, PhD [facility] [place] [address] 08/03/2024 10:00 AM EDT Office [place] [phone] Deborah Richardson, TWO WAY RADIO INSTALLER [facility] [place] [address] documented as of this encounter Visit Diagnoses Not on filedocumented in this encounter Care Teams Weigher Operator Relationship Specialty Start Date End Date Moira Covarrubias MD PCP - General Family Medicine 07/17/21 06/27/22 documented as of this encounter
--- OUTSIDE RECORDS SUMMARY | 2024-03-04 21:50 | XMS_ITS | Encounter Summary ---
Author Organization [facility] [place] [address] Care Team Providers Care Property Accountant Name Role Phone Amrita Saab DO Primary Care Provider Unava ilable Encounter Details Date Type Department Care Team (Late st Contact Info) Description 04/30/2021 2:00 PM EDT [place] [address] Dot Briones APRN Acute UTI (urinary tract infection); Dysuria Social [...] Briones APRN - 04/30/2021 2:00 PM EDT [facility] SECTION OF UROLOGY OUT PATIENT FOLLOW [...] has CKD and does not see a Faro Dealer. She is most concerned about the fact that she has no risk factors for CKD, but she did have an elevated cre decades ago. She was then seenby a forklift truck mechanic, and an US in the past showed [...] concern today. She is not seeing a forklift truck mechanic but wants to. She does leak with [...] sugar as well. She is seeing a splicing supervisor. She has issues withfood and what she can eat. No motrin with kidney issues. Only tylenol The only change she notes is left flank pain. She has flank pressure and bladder pressure. Was on amitriptyline recently for GI issues, she had GERD with this. Takes pantoprazole. She had a renal US recently. She had an MRI recently-no liver cancer. This was done at [facility]. Gyne: G 4 P 1 #1 hysterectomy [...] to divorce, never a smoker, no etoh. 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 OBJECTIVE FINDINGS: well appearing, NAD Head: normocephalic [...] PT unless there is a PFPT at [facility]-she will contact them to see if they [...] satisfaction Dot Vinson APRN Section of Urology [phone] documented in this encounter Plan of Treatment Upcoming Encounters Date Type Department Care Team (Late st Contact Info) Description 03/16/2024 10:15 AM EST Office Visit Audiology at [address] [address] Anna Echols, PhD [facility] [place] [address] 08/03/2024 10:00 AM EDT Office Visit Urology at [facility] [place] [address] Deborah Richardson APRN [facility] [place] [address] documented as of this encounter Procedures Procedure [...] coli 1,000-9,000 cfu/ml Normal mucosal claire (A) [facility] Organism Escherichia coli(A) [facility] Clean Catch Urine 04/30/2021 [...] coli Trimethoprim/Sulfa VITEK 2 METHOD Sensitive Dot Vinson APRN MICROBIOLOGY - GENERAL ORDERABLES [facility] [place] [address] * (ABNORMAL) _Urinalysis with microscopic (04/30/2021 2:10 PM EDT) Glucose, Urine Dipstick Negative Negative mg/dL [facility] Protein, Urine Dipstick Negative Negative mg/dL [facility] Bilirubin, Urine Dipstick Negative Negative mg/dL [facility] Comment: Clinical correlation required for positive Urine Bilirubin results as false positive may occur with some drugs and drug related products. If a false positive is suspected a serum total bilirubin should be considered if clinically indicated. Urobilinogen, Urine Dipstick Normal Normal mg/dL [facility] pH, Urn (dipstick) 7.5 5.0 - 8.0 [facility] Blood, Urine Dipstick Small(A) Negative mg/dL [facility] Ketone, Urine Dipstick Negative Negative mg/dL [facility] Nitrite, Urine Dipstick Negative Negative [facility] Leukocytes, Urine Dipstick Negative Negative [facility] Appearance, Urine Dipstick Clear Clear [facility] Specific [place] Urine Automated 1.008 1.005 - 1.030 [facility] Color, Urine Dipstick Yellow Yellow [facility] RBC, Urine 1 0 - 4 /HPF [facility] WBC, Urine 0 0 - 5 /HPF [facility] Squamous Epithelial Cells Raw Data, Urine 2 <=4 /HPF [facility] Urine 04/30/2021 2:10 PM EDT 04/30/2021 3:44 PM EDT Narrative Resulting Agency Comment Spec In Lab Dotelyssa Barbosaill Karel ASSISTANT STORE MANAGER OPERATIONS URINE ORDERABLE S Performing Organization Address City/State/[facility] Co de Phone Number [facility] [place] [address] documented in this encounter Visit Diagnoses Diagnosis Acute UTI (urinary tract infection) Urinary tract infection, site not specified Dysuria documented in this encounter Care Teams Property Accountant Relationship Specialty Start Date End Date Amrita Saab DO PCP - General Family Medicine 03/16/21 07/16/21 documented as of this encounter
--- OUTSIDE RECORDS SUMMARY | 2024-03-04 21:50 | XMS_ITS | Encounter Summary ---
Author Organization [facility] [place] [address] Care Team Providers Care Gas Torch Brazier Name Role Phone Kaylene Pinedo MD Primary Care Provider [phone] Encounter Details Date Type Department Care Team (Late st Contact Info) Description 01/16/2021 Ancillary Procedure Radiology Library at [facility] [place] [address] Dot Briones APRN Social History Tobacco Use [...] 10:15 AM EST Office Visit Audiology at [address] [address] Anna Hernandez, PhD [facility] [place] [address] 08/03/2024 10:00 AM EDT [place] [phone] Deborah Richardson INTERACTIVE MEDIA MARKETING SPECIALIST [facility] [place] [address] documented as of this encounter Procedures Procedure [...] Vinson APRN IMG FILM LIBRAR Y ORDERABLES [place], [place] documented in this encounter Visit Diagnoses Not on filedocumented in this encounter Care Teams Gas Torch Brazier Relationship Specialty Start Date End Date Kaylene Pinedo MD [address] [place] [address] PCP - General 09/21/13 02/21/21 documented as of this encounter
--- OUTSIDE RECORDS SUMMARY | 2024-03-04 21:50 | XMS_ITS | Encounter Summary ---
Author Organization [facility] [place] [address] Care Team Providers Care Health And Wellness Advisor Name Role Phone Kaylene Pinedo MD Primary Care Provider Encounter Details Date Type Department Care Team (Late st Contact Info) Description 07/12/2019 Telephone [place] [address] Morro Sena III, MD [facility] [place] [address] Social History Tobacco Use Types Packs/Day Years [...] Clinician: 8:30 End of Call: 8:38 Location: [facility] Calling Clinician: Dr. Childress Transfer/Consult and Reason: transfer/consult [facility] Status: n/a History, Vitals, Examination, Laboratory Results, and Imaging as reported by calling Clinician: Ruthann Wolf is a 64 y.o. woman with no [...] since symptom onset) Recommendations: 1. Transfer to [facility] ED for further evaluation 2. She has CT contrast allergy - facial edema, so we will have to do MRI brain and MRA head and neck wo contrast - may not be able to be obtained today 3. If symptoms and exam findings persisting and no imaging available will likely admit to neuro step down Morro eSna III, MD Room Worker Department of Neurology [facility] [place] [address] documented in this encounter Plan of Treatment Upcoming Encounters Date Type Department Care Team (Late st Contact Info) Description 03/16/2024 10:15 AM EST Office Visit Audiology at [place] [phone] Anna Hernandez, PhD [facility] [address] 08/03/2024 10:00 AM EDT Office [place] [address] Deborah Richardson, MACARONI MAKER [facility] [place] [address] documented as of this encounter Visit Diagnoses Not on filedocumented in this encounter Care Teams Health And Wellness Advisor Relationship Specialty Start Date End Date Kaylene Pinedo MD [address] [place] [address] PCP - General 09/21/13 02/21/21 documented as of this encounter
--- OUTSIDE RECORDS SUMMARY | 2024-03-04 21:50 | XMS_ITS | Encounter Summary ---
Author Organization [facility] [place] [address] Care Team Providers Care Clerk Supervisor Name Role Phone Kaylene Pinedo MD Primary Care Provider [phone] Encounter Details Date Type Department Care Team (Late st Contact Info) Description 01/16/2021 12:05 AM EST Ancillary Procedure Radiology Library [place] [address] Dot Briones APRN Social History Tobacco Use [...] 10:15 AM EST Office Visit Audiology at [address] [address] Anna Hernandez, PhD [facility] [place] [address] 08/03/2024 10:00 AM EDT [place] [phone] Deborah Richardson, DIECAST MACHINE OPERATOR [facility] [place] [address] documented as of this encounter Procedures Procedure Name Priority Date/Time Associated Diagnosis Comments FILM LIBRARY STORAGE ONLY ULTRASOUND STUDY Routine 01/16/2021 12:05 AM EST documented in this encounter Results * Film Library- Storage Only Ultrasound Study (01/16/2021 12:05 AM EST) Narrative [facility] - 04/24/2021 7:30 PM EST This exam is auto-finalizing. It's purpose is for storage only. Dot Vinson APRN IMG FILM LIBRAR Y ORDERABLES Performing Organization Address City/State/[facility] Co de Phone Number [place], [place] documented in this encounter Visit Diagnoses Not on filedocumented in this encounter Care Teams Clerk Supervisor Relationship Specialty Start Date End Date Kaylene Pinedo MD [address] [place] [address] PCP - General 09/21/13 02/21/21 documented as of this encounter
--- OUTSIDE RECORDS SUMMARY | 2024-03-04 21:50 | XMS_ITS | Encounter Summary ---
[place] [address] Care Team Providers Care Physician Assistant Primary Care Name Role Phone Moira Covarrubias MD Primary Care Provider Reason for Referral * Consultation (Routine) - Closed Specialty Diagnoses / Procedures Referred By Leidy t Referred To Contact [facility] Diagnoses Pain in thoracic spine back pain/ ? imaging Moira Covarrubias MD [address] [place] [address] [facility] [place] [address] Referral ID Status Reason Start Date Expiration Date V isits Requested Visits Authorized [id number] Closed Consult, Test & Treat PCP Updated and/or Approved 04/16/2022 04/16/2023 1 1 Encounter Details Date Type Department Care Team (Latest Contact Info) Description 04/16/2022 Transcribe Orders eDH Incoming Referrals [phone] Moira Covarrubias MD [address] [place] [address] Pain in thoracic spine Social History [...] AM EST Office Visit Audiology at [address] [address] Anna Hernandez, PhD [facility] [place] [address] 08/03/2024 10:00 AM EDT [place] [phone] Deborah Richardson APRN [facility] [place] [address] Scheduled Referrals Name Type Priority Associated Diagnoses Order Schedule Referral to Pain Management Outpatient Referral Routine Pain in thoracic spine Ordered: 04/16/2022 documented as of this encounter Visit Diagnoses Diagnosis Pain in thoracic spine documented in this encounter Care Teams Physician Assistant Primary Care Relationship Specialty Start Date End Date Moira Covarrubias MD PCP - General Family Medicine 07/17/21 06/27/22 documented as of this encounter
--- OUTSIDE RECORDS SUMMARY | 2024-03-04 21:50 | XMS_ITS | Encounter Summary ---
Author Organization [facility] [place] [address] Care Team Providers Care Plastic Parts Fabricator Name Role Phone KaiserElkeAmrita Primary Care Provider Unava ilable Encounter Details Date Type Department Care Team (Late st Contact Info) Description 05/29/2021 Orders [place] [phone] Dot Briones APRN Mixed stress and urge urinary incontinence Social [...] 10:15 AM EST Office Visit Audiology at [address] [phone] Anna Hernandez, PhD [facility] [place] [address] 08/03/2024 10:00 AM EDT Office [place] [address] Deborah Richardson APRN [facility] [place] [address] documented as of this encounter Visit Diagnoses Diagnosis Mixed stress and urge urinary incontinence Mixed incontinence urge and stress (male)(female) documented in this encounter Care Teams Plastic Parts Fabricator Relationship Specialty Start Date End Date Amrita Saab DO PCP - General Family Medicine 03/16/21 07/16/21 documented as of this encounter
--- OUTSIDE RECORDS SUMMARY | 2024-03-04 21:50 | XMS_ITS | Encounter Summary ---
Author Organization [facility] [place] [address] Care Team Providers Care Solder Deposit Operator Name Role Phone Kaylene Pinedo MD Primary Care Provider [phone] Reason for Visit * Reason Comments Cognitive Decline neuropsych eval Encounter Details Date Type Department Care Team (Late st Contact Info) Description 12/01/2013 8:30 AM EDT Office Visit Psychiatry [place] [address] Anderson Lema, PhD [facility] [place] [address] Altered mental status (Primary Dx); Major depressive [...] NEUROPSYCHOLOGICAL EVALUATION Patient Name: Ruthann Wolf MR#: [id number] Date of Evaluation: 12/01/2013 Age: 58 years Date of : 1955 Gender: Female Education: 16 Years 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 REASON FOR REFERRAL AND BACKGROUND: This is Ruthann Wolf???s first [facility] clinical neuropsychological evaluation. She was referred in [...] reported having problems [facility] 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 and was ???in and out?? of jobs throughout her life. In 2003, she completed a one year real estate paralegal program in two years, reporting that she struggled with procrastination and feeling overwhelmed throughout the program, causing her to take extra time to complete it. 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 She currently volunteers at the [facility], which she [...] was tested at the Neuropsychology Laboratory at [facility]. She appeared alert and was oriented to [...] Comprehension of Complex Ideational Material (from BDAE; Ripley Diagnostic Aphasia Examination); Ripley Naming Test; Wide Range Achievement Test, 4th [...] Test-II: Raw Score Total Trials 1-5 57/80 (0-74-95--16) High Average Short-Delay Free Recall 16 Average Short-Delay Cued Recall 16/16 Superior 20??? Delayed Free Recall 15/16 Superior 20??? Delayed Cued Recall 15/16 High Average Recognition 16/16 Average False Positive Errors 0 High Average Discriminability 4 Superior Forced-Choice Recognition 16 Within Normal Limits Attention/Executive Functioning: Longest Digit(Scaled Score) WAIS-IV Digit Span: Forward 5 (8) Average Backward 4 (10) Average Sequencing 6 (11) Average D-KEFS [place] Making Test: Raw Score (scaled score) Visual [...] Low Average Language: Raw Score Sentence Comprehension 01/28 Average Confrontation Naming 59/60 High Average WRAT-4 Reading Recognition Std Szcln=307 Average D -KEFS Verbal Fluency Test: Raw [...] Elevated/WNL Self-Monitor 65 40 Elevated/WNL Metacognition Index ([place]) 82 48 Elevated/WNL Initiation 93 54 Elevated/WNL [...] the pastmonth, she endorsed clinically significant (T >= 65 ) difficulties with holding information in her mind and mentally manipulating it (working memory), initiating tasks, inhibiting behavior, monitoring her behavior, controlling her emotions, shifting her attention, planning and organization, and monitoring task performance for accuracy. She did not endorse clinically significant difficulty withability to organize her personal and work space. [...] may also benefit from consultation with a music autographer. Regular exercise may benefit physical as well [...] Wolf for evaluation. Please contact us at [phone] if we can be of further assistance. Li Arnold, Ph.D. Anderson Lema, Ph.D. Post-Doctoral Fellow Clinical Neuropsychologist Neuropsychology Auto Painter HelperCompliance Assistantmotion and time study teacher This report was prepared by Li Arnold, Ph.D., Postdoctoral Fellow in Neuropsychology, under the supervision of Anderson Lema, Ph.D. documented in this encounter Plan of Treatment Upcoming Encounters Date Type Department Care Team (Late st Contact Info) Description 03/16/2024 10:15 AM EST Office Visit Audiology at [address] [address] Anna Hernandez, PhD [facility] [place] [address] 08/03/2024 10:00 AM EDT [place] [address] Deborah Richardson APRN [facility] [place] [address] documented as of this encounter Visit Diagnoses Diagnosis Altered mental status- Primary Major depressive disorder, recurrent episode Major depressive disorder, recurrent episode, unspecified documented in this encounter Care Teams Solder Deposit Operator Relationship Specialty Start Date End Date Kaylene Pinedo MD [address] [place] [address] PCP - General 09/21/13 02/21/21 documented as of this encounter
--- OUTSIDE RECORDS SUMMARY | 2024-03-04 21:50 | XMS_ITS | Encounter Summary ---
[place] [address] Care Team Providers Care Dry Box Operator Name Role Phone Moira Covarrubias MD Primary Care Provider [phone] Reason for Visit * Reason Comments Establish Care BILAT KNEE PAIN * Consultation (Routine) - Closed Specialty Diagnoses / Procedures Referred By Contact Referred To Contact Orthopaedic Surgery / Orthopaedics Diagnoses Bilateral knee pain Self mail [facility] [address] [place] [address] Referral ID Status Reason Start Date Expiration Date Visits Re quested Visits Authorized [id number] Closed 01/08/2022 01/08/2023 1 1 Encounter Details Date Type Department Care Team (Late st Contact Info) Description 01/16/2022 1:30 PM EST Office [place] [address] Clinic, Dr Agee Team None [...] less than $50,000 # People Supported 1 Moroccan, , No, not Moroccan// Race White Health Literacy Extremely Currently working No Not working because: Retired [facility] Response 01/09/2022 KOOS JR Scores 63.78 Spine [facility] Response 01/09/2022 KOOS JR Scores 63.78 Objective [...] 10:15 AM EST Office Visit Audiology at [address] [address] Anna Hernandez, PhD [facility] [place] [address] 08/03/2024 10:00 AM EDT [place] [address] Deborah Richardson, SENIOR RESEARCH CONSULTANT [facility] [place] [address] documented as of this encounter Results * XR Knee Standing Alignment AP Lat [place] Bilat (01/16/2022 2:36 PM EST) Anatomical Region [...] who have questions please contact the health ambulatory care that requested your imaging first. ? Narrative 01/16/2022 3:20 PM EST EXAMINATION: XR [...] patients who have questions please contactthe health ambulatory care that requested your imaging first. Lonnie Agee MD IMG DX ORDERABLES documented in this encounter Visit Diagnoses Diagnosis Chronic pain of both knees Chronic pain of both knees documented in this encounter Care Teams Dry Box Operator Relationship Specialty Start Date End Date Moira Covarrubias MD PCP - General Family Medicine 07/17/21 06/27/22 documented as of this encounter
--- OUTSIDE RECORDS SUMMARY | 2024-03-04 21:50 | XMS_ITS | Encounter Summary ---
Author Organization [facility] [place] [address] Care Team Providers Care Student Activities Director Name Role Phone Moira Covarrubias MD Primary Care Provider [phone] Encounter Details Date Type Department Care Team [...] AM EST Office Visit Audiology at [address] [phone] Anna Hernandez, PhD [facility] [place] [address] 08/03/2024 10:00 AM EDT Office [place] [phone] Deborah Richardson COAT AGENT [facility] [place] [address] documented as of this encounter Visit Diagnoses Not on filedocumented in this encounter Care Teams Student Activities Director Relationship Specialty Start Date End Date Moira Covarrubias MD PCP - General Family Medicine 07/17/21 06/27/22 documented as of this encounter
--- OUTSIDE RECORDS SUMMARY | 2024-03-04 21:50 | XMS_ITS | Encounter Summary ---
Author Organization [facility] [place] [address] Care Team Providers Care Front End Software Developer Name Role Phone Kaylene Pinedo MD Primary Care Provider [phone] Encounter Details Date Type Department Care Team (Late Contact Info) Description 04/24/2015 Telephone Nephrology [place] [address] [address] [place] Social History Tobacco [...] AM EST Office Visit Audiology at [address] [phone] Anna Hernandez, PhD [facility] [place] [address] 08/03/2024 10:00 AM EDT Office [place] [address] Deborah Richardson APRN [facility] [place] [address] documented as of this encounter Visit Diagnoses Not on filedocumented in this encounter Care Teams Front End Software Developer Relationship Specialty Start Date End Date Kaylene Pinedo MD [address] [place] [address] PCP - General 09/21/13 02/21/21 documented as of this encounter
--- OUTSIDE RECORDS SUMMARY | 2024-03-04 21:50 | XMS_ITS | Encounter Summary ---
Author Organization [facility] [place] [address] Care Team Providers Care Business Sales Consultant Name Role Phone Moira Covarrubias MD Primary Care Provider [phone] Reason for Referral * Physical Therapy (Routine) - Closed Specialty Diagnoses / Procedures Referred By Leidy lemon Referred To Contact Diagnoses OAB (overactive bladder) Dot Briones APRN [facility] [place] [address] Referral ID Status Reason Start Date Expiration Date V isits Requested Visits Authorized [id number] Closed Evaluate and Treat 07/31/2021 01/27/2022 12 12 Encounter Details Date Type Department Care Team (Latest Contact Info) Description 07/31/2021 9:20 AM EDT TH Visit (TeleHealth) [place] [address] Dot Briones APRN OAB (overactive bladder); Chronic pelvic pain in [...] this encounter Progress Notes * Dot Briones, ACCOUNT SERVICES SPECIALIST - 07/31/2021 9:20 AM EDT [facility] SECTION OF UROLOGY OUT PATIENT FOLLOW UP [...] person appointment. The patient is currently in [place]. Prior to beginning the visit, I confirmed the patients name and date of . I obtained the patient's consent to receiving health care services at [facility] through telemedicine. We discussed the opportunities and limitations of delivering health care services through telemedicine. I told the patient that the telemedicine service is being delivered over a secure connection, except in the event of emergency conditions when such requirements may be waived. Patient informed [facility] informed consent form is available for patient's review in [employer]'s patient portal, [facility]. Urologic history: Saw me ~2004. She [...] decades ago, had been seen by a seed mill superintendent remotely and US showed renal scarring, but [...] sugar as well. She is seeing a lab support service tech. She has issues withfood and what she can eat. Was on amitriptyline recently for GI issues, she had GERD with this. Takes pantoprazole. She had a renal US recently. She had an MRI recently-no liver cancer. This was done at [place]. Gyne: G 4 P 1 #1 hysterectomy [...] to divorce, never a smoker, no etoh. 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 Referral to [place] pelvic floor PT timothy matos to fax ??? Hydration with water, moderation of bladder irritants and bowels. ??? Will defer other therapies at this time. ??? Behavioral therapies emphasized. She will hydrate and moderate her bowels, moderate irritants and timed void. Hydrate with water ??? We discussed her ANALI/UUI and pelvic discomfort. She will defer PT unless there is a PFPT at [place]-she will contact them to see if they [...] satisfaction Dot Vinson APRN Section of Urology [phone] documented in this encounter Plan of Treatment Upcoming Encounters Date Type Department Care Team (Late st Contact Info) Description 03/16/2024 10:15 AM EST Office Visit Audiology at [address] [phone] Anna Hernandez, PhD [facility] [place] [address] 08/03/2024 10:00 AM EDT [place] [address] Deborah Richardson ACCOUNT SERVICES SPECIALIST [facility] [place] [address] Scheduled Referrals Name Type Priority Associated Diagnoses [...] ureter documented in this encounter Care Teams Business Sales Consultant Relationship Specialty Start Date End Date Moira Covarrubias MD PCP - General Family Medicine 07/17/21 06/27/22 documented as of this encounter
--- OUTSIDE RECORDS SUMMARY | 2024-03-04 21:51 | XMS_ITS | Encounter Summary ---
Author Organization [facility] [place] [address] Care Team Providers Care Sales Support Coordinator Name Role Phone Marianna Garcia MD Primary Care Provider [phone] Encounter Details Date Type Department Care Team (Late st Contact Info) Description 05/23/2010 Orders [place] [phone] Marcio Franklin MD Social History Tobacco Use Types Packs/Day [...] 10:15 AM EST Office Visit Audiology at [address] [phone] Anna Hernandez, PhD [facility] [place] [address] 08/03/2024 10:00 AM EDT Office [place] [phone] Deborah Richardson APRN [facility] [place] [address] documented as of this encounter Procedures Procedure [...] filedocumented in this encounter Care Teams Sales Support Coordinator Relationship Specialty Start Date End Date Marianna Garcia MD HOSPITALIST SERVICES [address] [place] [address] [place] [address] PCP - General 01/09/10 09/20/13 documented as of this encounter
--- OUTSIDE RECORDS SUMMARY | 2024-03-04 21:51 | XMS_ITS | Encounter Summary ---
Author Organization [facility] [place] [address] Care Team Providers Care Head Bellhop Captain Name Role Phone Marianna Garcia MD Primary Care Provider [phone] Encounter Details Date Type Department Care Team (Latest Contact Info) Description 05/23/2010 9:06 AM EDT - 05/23/2010 11:59 PM EDT Hospital Encounter [place] [address] Marcio Franklin MD Discharge Disposition: Home Social History Tobacco Use [...] 10:15 AM EST Office Visit Audiology at [address] [phone] Anna Hernandez, PhD [facility] [place] [address] 08/03/2024 10:00 AM EDT Office [place] [address] Deborah Richardson APRN [facility] [place] [address] documented as of this encounter Visit Diagnoses Not on filedocumented in this encounter Care Teams Head Bellhop Captain Relationship Specialty Start Date End Date Marianna Garcia MD HOSPITALIST SERVICES [address] [place] [address] [place] [address] PCP - General 01/09/10 09/20/13 documented as of this encounter
--- OUTSIDE RECORDS SUMMARY | 2024-03-04 21:51 | XMS_ITS | Encounter Summary ---
Author Organization [facility] [place] [address] Care Team Providers Care Doughnut Machine Operator Helper Name Role Phone Marianna Garcia MD Primary Care Provider [phone] Encounter Details Date Type Department Care Team (Late st Contact Info) Description 05/16/2010 12:30 PM EDT Procedure visit [place] [address] Marcio Franklin MD Social History Tobacco Use [...] 10:15 AM EST Office Visit Audiology at [address] [address] Anna Hernandez, PhD [facility] [place] [address] 08/03/2024 10:00 AM EDT Office [place] [phone] Deborah Richardson APRN [facility] [place] [address] documented as of this encounter Visit Diagnoses Not on filedocumented in this encounter Care Teams Doughnut Machine Operator Helper Relationship Specialty Start Date End Date Marianna Garcia MD HOSPITALIST SERVICES [address] [place] [address] [place] [address] PCP - General 01/09/10 09/20/13 documented as of this encounter
--- OUTSIDE RECORDS SUMMARY | 2024-03-04 21:51 | XMS_ITS | Encounter Summary ---
Author Organization [facility] [place] [address] Care Team Providers Care College Archivist Name Role Phone Kaylene Pinedo MD Primary Care Provider [phone] Reason for Visit * Reason Comments Chronic Kidney Disease Encounter Details Date Type Department Care Team (Late st Contact Info) Description 10/28/2013 9:30 AM EDT Follow-Up [place]phrology [place] [address] Devin Myrick MD [facility] [place] [place] [address] CKD (chronic kidney disease), stage III (Primary [...] 9:54 AM EDT Nephrology/Hypertension Clinic Follow-up Note [id number] ID: 58 y.o.year-old female for follow up [...] depression). She recently lost her job at [employer]. She recalls that she did have US at [facility] and was told that it was [...] prn. CC: KAYLENE PINEDO MD [address] [place] [address] documented in this encounter Plan of Treatment Upcoming Encounters Date Type Department Care Team (Late st Contact Info) Description 03/16/2024 10:15 AM EST Office Visit Audiology at [address] [address] Anna Hernandez, PhD [facility] [place] [address] 08/03/2024 10:00 AM EDT [place] [address] Deborah Richardson APRN [facility] [place] [address] documented as of this encounter Procedures Procedure [...] * Differential, Automated (10/28/2013 10:34 AM EDT) Neutrophil % 40.4 34.0 - 71.0 % CERNER MILLENNIUM Neutrophil Absolute 2.03 1.50 - 6.30 x10(3)/mcL CERNER MILLENNIUM Lymph % 44.1 19.0 - 53.0 % CERNER MILLENNIUM Lymphocytes Abs 2.2 1.0 - 3.6 x10(3)/mcL CERNER MILLENNIUM Monocyte % 8.7 4.0 - 13.0 % CERNER MILLENNIUM Monocyte Abs 0.4 0.2 - 1.0 x10(3)/mcL CERNER MILLENNIUM Eos % 6.0 0.0 - 7.0 % CERNER MILLENNIUM Eosinophils Abs 0.3 0.0 - 0.5 x10(3)/mcL CERNER MILLENNIUM Basophil % 0.8 0.0 - 2.0 % CERNER MILLENNIUM Baso Absolute 0.0 0.0 - 0.2 x10(3)/mcL CERNER MILLENNIUM Immature Gran % 0.00 0.00 - 0.66 % CERNER MILLENNIUM Comment: Immature granulocytes(IG's)percentage and absolute count will include metamyelocytes, myelocytes, and promyelocytes. Blood smears from CBCs yielding IG's will be scanned manually for concordance. If this scan disagrees with the automated IG or if promyelocytes are noted, a manual differential will be performed. Immature Gran Absolute 0.00 0.00 - 0.05 x10(3)/mcL CERNER MILLENNIUM Blood specimen (specimen) 10/28/2013 10:34 AM EDT 10/28/2013 10:41 AM EDT Narrative Resulting Agency Comment Spec In Lab Devin A Elen CADE HEMATOLOGY ORDERABLE S CERNER MILLENNIUM * (ABNORMAL) Hemogram (10/28/2013 10:34 AM EDT) White Blood Cell 5.0 4.0 - 10.0 x10(3)/mc L CERNER MILLENNIUM Red Blood Cell 4.46 3.93 - 5.22 x10(6)/mc L CERNER MILLENNIUM Hemoglobin 13.4 11.2 - 15.7 gm/dL CERNER MILLENNIUM Hematocrit 41.2 34.0 - 45.0 % CERNER MILLENNIUM Mean Cell Volume 92.4 79.0 - 94.0 fL CERNER MILLENNIUM Mean Cell Hemoglobin 30.0 26.6 - 32.2 pg CERNER MILLENNIUM Mean Cell Hemoglobin Concentration 32.5 32.0 - 36.5 gm/dL CERNER MILLENNIUM Platelet 190 145 - 370 x10(3)/mc L CERNER MILLENNIUM RDW Standard Deviation 44.7 35.0 - 46.0 fL CERNER MILLENNIUM RDW coefficient of variation 13.3 10.9 - 14.4 % CERNER MILLENNIUM Mean Platelet Volume 12.6(H) 9.0 - 12.0 fL LAXMI CABRERAENNIUM Blood specimen (specimen) 10/28/2013 10:34 AM EDT 10/28/2013 10:41 AM EDT Narrative Resulting Agency Comment Spec In Lab Devin Myrick MD HEMATOLOGY ORDERABLE S Performing Organization Address [facility] de Phone Number LAXMI MERCADO * High Sensitivity CRP (10/28/2013 10:34 AM EDT) C-Reactive Protein High Sensitivity <0.2 mg/L [facility] Comment: Interpretations: 1) For accurate cardiac risk [...] and Cardiovascular Disease. ??Circulation 2003; 107:499-511 2. Ridker PM. ??Clinical applications of C-reactive protein for cardiovascular disease detection and prevention. ??Circulation 2003; 107:363-369 Blood specimen (specimen) 10/28/2013 10:34 AM EDT 10/28/2013 10:41 AM EDT Narrative Resulting Agency Comment Spec In Lab Devin Myrick MD CHEMISTRY ORDERABLES Performing Organization Address [facility] de Phone Number LAXMI MERCADO * PTH (10/28/2013 10:34 AM EDT) Parathyroid Hormone 38 15 - 65 pg/mL LAXMI QUEENIUM Blood specimen (specimen) 10/28/2013 10:34 AM EDT 10/28/2013 10:41 AM EDT Narrative Resulting Agency Comment Spec In Lab Devin Myrick MD CHEMISTRY ORDERABLES Performing Organization Address [facility] Co de Phone Number [facility] MILL[facility] * Phosphorus (10/28/2013 10:34 AM EDT) Phosphorus 2.7 2.5 - 4.5 mg/dL CERNER MILLENNIUM Blood specimen (specimen) 10/28/2013 10:34 AM EDT 10/28/2013 10:41 AM EDT Narrative Resulting Agency Comment Spec In Lab Devin Myrick MD CHEMISTRY ORDERABLES Performing Organization Address [facility] Co de Phone Number [facility] MILLENNIUM * Microalbumin, urine, random (10/28/2013 10:00 AM EDT) Creatinine, Urine 35 mg/dL CE RNER MILLENNIUM Albumin, Urine <3.0 mg/L CERNE R MILLENNIUM Comment:rechecked-ds Albumin / Creatinin Ratio, Urine <9 mcg/mg Cr CERNER MILLENNIUM Comment: Reference Range* Random collection (mcg/mg creatinine) Normal ?<30 Microalbuminuria ?? 30 - 300 Clinical Albuminuria ?? >300 *[place] [employer]. Diabetic Nephropathy. Diabetes Care 1997;(Suppl 1):S24-S27 Exercise within 24 hour, infection, fever, CHF, marked hyperglycemia, and marked hypertension may elevate urinary albumin excretion over baseline values. Urine specimen (specimen) 10/28/2013 10:00 AM EDT 10/28/2013 12:21 PM EDT Narrative Resulting Agency Comment Spec In Lab Devin Myrick MD URINE ORDERABLES Performing Organization Address City/[facility] Co de Phone Number [facility] documented in this encounter Visit Diagnoses Diagnosis CKD (chronic kidney disease), stage III- Primary Chronic kidney disease, Stage III (moderate) documented in this encounter Care Teams College Archivist Relationship Specialty Start Date End Date Kaylene Pinedo MD [address] [place] [address] PCP - General 09/21/13 02/21/21 documented as of this encounter
--- OUTSIDE RECORDS SUMMARY | 2024-03-04 21:51 | XMS_ITS | Encounter Summary ---
Author Organization Formerly [facility] [place] [address] Care Team Providers Care Spare Parts Clerk Name Role Phone Marianna Garcia MD Primary Care Provider [phone] Encounter Details Date Type Department Care Team (Late st Contact Info) Description 04/14/2012 3:00 PM EST Follow-Up Nephrology [place] [address] Naga Alford MD Renal insufficiency (Primary Dx) Discharge Disposition: Home [...] Alford MD - 04/14/2012 3:40 PM EST [facility] Nephrology/Hypertension Follow Up Ruthann Wolf [id number] ID: [id number] y.o. female for follow-up [...] the specific components they have and their rn long term care side effects. At this point would advise [...] Dr. Ricardo Garcia MD Nephrology Fellow Pager# [phone] Marianna Garcia MD [address] [facility] [phone] documented in this encounter Miscellaneous Notes * Addendum Note - Teofilo Serra MD - 05/12/2012 1:37 PM EDTAddended by: TEOFILO SERRA on: 05/12/2012 01:37 PM Modules accepted: Level of Service documented in this encounter Plan of Treatment Upcoming Encounters Date Type Department Care Team (Late st Contact Info) Description 03/16/2024 10:15 AM EST Office Visit Audiology at [address] [address] Anna Hernandez, PhD [facility] [place] [address] 08/03/2024 10:00 AM EDT Office Visit [place] [phone] Deborah Richardson APRN [facility] [place] [address] documented as of this encounter Procedures Procedure Name Priority Date/Time Associated Diagnosis Comments PTH Routine 04/14/2012 4:38 PM EST Renal insufficiency DIFFERENTIAL, AUTOMATED Routine 04/14/2012 4:38 PM EST CBC (WITH DIFF) Routine 04/14/2012 4:38 PM EST Renal insufficiency PHOSPHORUS Routine 04/14/2012 4:38 PM EST Renal insufficiency BASIC METABOLIC PANEL Routine 04/14/2012 4:38 PM EST Renal insufficiency U ALBUMIN/CRE RATIO Routine 04/14/2012 2 :30 PM EST Renal insufficiency PROTEIN ELECTROPHORESIS, URINE, RANDOM Routine 04/14/2012 2:30 PM EST Renal insufficiency documented in this encounter Results * Differential, Automated (04/14/2012 4:38 PM EST) Neutrophil % 41.9 34.0 - 71.0 % CERNER MILLENNIUM Neutrophil Absolute 2.37 1.50 - 6.30 x10(3)/mcL CERNER MILLENNIUM Lymph % 45.9 19.0 - 53.0 % CERNER MILLENNIUM Lymphocytes Abs 2.6 1.0 - 3.6 x10(3)/mcL CERNER MILLENNIUM Monocyte % 6.4 4.0 - 13.0 % CERNER MILLENNIUM Monocyte Abs 0.4 0.2 - 1.0 x10(3)/mcL CERNER MILLENNIUM Eos % 5.1 0.0 - 7.0 % CERNER MILLENNIUM Eosinophils Abs 0.3 0.0 - 0.5 x10(3)/mcL CERNER MILLENNIUM Basophil % 0.7 0.0 - 2.0 % CERNER MILLENNIUM Baso [...] MD HEMATOLOGY ORDERABLE S Performing Organization Address City/[facility] Co de Phone Number CERNER RICKENNIUM * PTH (04/14/2012 4:38 PM EST) Parathyroid Hormone 44 15 - 65 pg/mL CERNER MILLENNIUM Blood specimen (specimen) 04/14/2012 4:38 PM EST 04/14/2012 4:46 PM EST Narrative Resulting Agency Comment Spec In Lab Teofilo Serra MD CHEMISTRY ORDERABLES Performing Organization Address [facility] Co de Phone Number [facility] * Phosphorus (04/14/2012 4:38 PM EST) Phosphorus 3.7 2.5 - 4.5 mg/dL CERNER MILLENNIUM Blood specimen (specimen) 04/14/2012 4:38 PM EST 04/14/2012 4:46 PM EST Narrative Resulting Agency Comment Spec In Lab Teofilo Serra MD CHEMISTRY ORDERABLES Performing Organization Address [facility] de Phone Number [facility] * (ABNORMAL) Basic Metabolic Panel (non-fasting) (04/14/2012 4:38 PM EST) Glucose 78 60 - 199 mg/dL CERNER MILLENNIUM Comment:Diabetes: >=200 mg/d L plus symptoms Blood Urea Nitrogen 17 8 - 18 mg/dL CERNER MILLENNIUM Creatinine 1.24(H) 0.70 - 1.20 mg/dL CERNER MILLENNIUM Comment: Please note that the pediatric reference intervals supplied above were not validated at [facility]. Results from pediatric patients should be interpreted in conjunction to the patient's age, height and muscle mass. Sodium 143 135 - 145 mmol/L CERNER MILLENNIUM Potassium 3.8 3.5 - 5.0 mmol/L CERNER MILLENNIUM Comment: Please note: ??Patients with WBC >100,000 may have falsely elevated Potassium levels. ??For accurate Potassium quantification in these patients send serum separator tube (gold top) for subsequent determinations. ??Contact the Clinical Chemistry Laboratory if there are any questions. Chloride 105 98 - 107 mmol/L CERNER MILLENNIUM Carbon Dioxide 27 22 - 31 mmol/L CERNER MILLENNIUM Anion Gap 11 5 - 15 mmol/L CERNER MILLENNIUM Calcium 9.5 8.5 - 10.5 mg/dL CERNER MILLENNIUM Est Glomerular Filtration Rate 45(L) >=60 CERNER MILLENNIUM Comment: The National [...] diabetic kidney disease. References: http://nkdep.nih.gov/resources/NKDEP_Suggestn4Labs_0606_508.pdf http://www.kidney.org/professionals/kls/pdf/faq_gfr.pdf Radha Christina Hamzah NA, Devante AK, Misael TS, Reji AD, Roxanne JAZMÍN. Relative performance of the MDRD and CKD-EPI equations for estimating glomerular filtration rate among patients with varied clinical presentations. Clin J Am Soc Nephrol;6:1963-72. Blood specimen (specimen) 04/14/2012 4:38 PM EST 04/14/2012 4:46 PM EST Narrative Resulting Agency Comment Spec In Lab Teofilo Serra MD CHEMISTRY ORDERABLES CERNER RICKENNIUM * CBC (with Diff) (04/14/2012 4:38 PM EST) White Blood Cell 5.7 4.0 - 10.0 x10(3)/mcL CERNER MILLENNIUM Red Blood Cell 4.49 3.93 - 5.22 x10(6)/mcL CERNER MILLENNIUM Hemoglobin 13.7 11.2 - 15.7 gm/dL CERNER MILLENNIUM Hematocrit 40.6 34.0 - 45.0 % CERNER MILLENNIUM Mean Cell Volume 90.4 79.0 - 94.0 fL CERNER MILLENNIUM Mean Cell Hemoglobin 30.5 26.6 - 32.2 pg CERNER MILLENNIUM Mean Cell Hemoglobin Concentration 33.7 32.0 - 36.5 gm/dL CERNER MILLENNIUM Platelet 209 145 - 370 x10(3)/mcL CERNER MILLENNIUM RDW Standard Deviation 44.4 35.0 - 46.0 fL CERNER MILLENNIUM RDW coefficient of variation 13.4 10.9 - 14.4 % CERNER MILLENNIUM Mean Platelet Volume 11.6 9.0 - 12.0 fL CERNER MILLENNIUM Blood specimen (specimen) 04/14/2012 4:38 PM EST 04/14/2012 4:46 PM EST Narrative Resulting Agency Comment Spec In Lab Teofilo Serra MD HEMATOLOGY ORDERABLE S Performing Organization Address City/[facility]/ZIP Co de Phone Number LAXMI QUEENIUM * Microalbumin, urine, random (04/14/2012 2:30 PM EST) Creatinine, Urine 26 mg/dL CE RNER MILLENNIUM Albumin, Urine <3.0 mg/L CERNE R MILLENNIUM Albumin / Creatinin Ratio, Urine <12 mcg/mg Cr CERNER MILLENNIUM Comment: Reference Range* Random collection (mcg/mg creatinine) Normal ?<30 Microalbuminuria ?? 30 - 300 Clinical Albuminuria ?? >300 *[place] Diabetes Association. Diabetic Nephropathy. Diabetes Care 1997;(Suppl 1):S24-S27 Exercise within 24 hour, infection, fever, CHF, marked hyperglycemia, and marked hypertension may elevate urinary albumin excretion over baseline values. Urine specimen (specimen) 04/14/2012 2:30 PM EST 04/14/2012 4:38 PM EST Narrative Resulting Agency Comment Spec In Lab Teofilo Serra MD URINE ORDERABLES CERNER MILLENNIUM * Protein Electrophoresis, urine, random (04/14/2012 2:30 PM EST) Protein, Urine <6 0 - 12 mg/dL CERNER MILLENNIUM U Albumin Not Perf % total CERNER MILLENNIUM Comment: Total Protein concentration too low to fractionate using current electrophoretic technique. Globulin, Urine Not Perf % total CERN ER MILLENNIUM M1 Band, Urine Not Applicable None Detected % total CERNER MILLENNIUM U Scan Not Applicable CERNER MILLENNIUM Urine specimen (specimen) 04/14/2012 2:30 PM EST 04/14/2012 4:38 PM EST Narrative Resulting Agency Comment Spec In Lab Teofilo Serra MD URINE ORDERABLES CERNER MILLENNIUM documented in this encounter Visit Diagnoses Diagnosis Renal insufficiency- Primary Unspecified disorder of kidney and ureter documented in this encounter Care Teams Spare Parts Clerk Relationship Specialty Start Date End Date Marianna Garcia MD HOSPITALIST SERVICES [address] [place] [address] [place] [address] PCP - General 01/09/10 09/20/13 documented as of this encounter
--- OUTSIDE RECORDS SUMMARY | 2024-03-04 21:51 | XMS_ITS | Encounter Summary ---
Author Organization [facility] [place] [address] Care Team Providers Care Contract Coordinator Name Role Phone Marianna Garcia MD Primary Care Provider [phone] Reason for Visit * Reason Comments Abdominal Pain Encounter Details Date Type Department Care Team (Late st Contact Info) Description 06/05/2010 3:30 PM EDT [place] [address] Marcio Franklin MD Dyspepsia (Primary Dx) Discharge Disposition: Home Social [...] 10:15 AM EST Office Visit Audiology at [address] [phone] Anna Hrenandez, PhD [facility] [place] [address] 08/03/2024 10:00 AM EDT [place] [address] Deborah Richardson, SALVAGE GRINDER [facility] [place] [address] documented as of this encounter Visit Diagnoses Diagnosis Dyspepsia- Primary Dyspepsia and other specified disorders of function of stomach documented in this encounter Care Teams Contract Coordinator Relationship Specialty Start Date End Date Marianna Garcia MD HOSPITALIST SERVICES [address] [place] [address] [place] [address] PCP - General 01/09/10 09/20/13 documented as of this encounter
--- OUTSIDE RECORDS SUMMARY | 2024-03-04 21:51 | XMS_ITS | Encounter Summary ---
Author Organization Formerly [facility] [place] [address] Care Team Providers Care User Experience Lead Name Role Phone Kaylene Pinedo MD Primary Care Provider [phone] Encounter Details Date Type Department Care Team (Late st Contact Info) Description 04/16/2011 Orders Only Nephrology [place] [address] Devin Myrick MD [facility] [place] [address] Social History Tobacco Use Types Packs/Day Years [...] 10:15 AM EST Office Visit Audiology at [address] [address] Anna Hernandez, PhD [facility] [place] [address] 08/03/2024 10:00 AM EDT Office [place] [address] Deborah Richardson APRN [facility] [place] [address] documented as of this encounter Procedures Procedure [...] a Non-reportable exam Devin Stephanie Myrick MD IMG FILM LIBRARY ORD ERABLES documented in this encounter Visit Diagnoses Not on filedocumented in this encounter Care Teams User Experience Lead Relationship Specialty Start Date End Date Kaylene Pinedo MD [address] [place] [address] PCP - General 09/21/13 02/21/21 documented as of this encounter
--- OUTSIDE RECORDS SUMMARY | 2024-03-04 21:51 | XMS_ITS | Encounter Summary ---
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 Encounter Details Date Type Department Care Team (Late st Contact Info) Description 06/05/2010 Telephone [place] [phone] Marcio Franklin MD Follow-up (CIS Migration of GIF 06/05/10) Social [...] 10:15 AM EST Office Visit Audiology at [address] [phone] Anna Hernandez, PhD [facility] [place] [address] 08/03/2024 10:00 AM EDT Office [place] [address] Deborah Richardson APRN [facility] [place] [address] documented as of this encounter Visit Diagnoses Not on filedocumented in this encounter Care Teams Cutter Inspector Relationship Specialty Start Date End Date Marianna Garcia MD HOSPITALIST SERVICES [address] [place] [address] [place] [address] PCP - General 01/09/10 09/20/13 documented as of this encounter
--- OUTSIDE RECORDS SUMMARY | 2024-03-04 21:51 | XMS_ITS | Encounter Summary ---
Author Organization Formerly [facility] [place] [address] Care Team Providers Care Hat And Cap Drying Room Attendant Name Role Phone Marianna Garcia MD Primary Care Provider [phone] Encounter Details Date Type Department Care Team (Latest Contact Info) Description 05/16/2010 12:30 PM EDT - 05/16/2010 6:30 PM EDT Hospital Encounter [place] [phone] Caitlyn Hoang MD Discharge Disposition: Home Social History Tobacco [...] 10:15 AM EST Office Visit Audiology at [address] [phone] Anna Hernandez, PhD [facility] [place] [address] 08/03/2024 10:00 AM EDT Office Visit Urology at [facility] [place] [address] Deborah Richardson APRN [facility] [place] [address] documented as of this encounter Procedures Procedure Name Priority Date/Time Associated Diagnosis Comments SURGICAL PATHOLOGY REPORT Routine 05/16/2010 3:48 PM EDT UPPER GI ENDOSCOPY Routine 05/16/2010 1: 38 PM EDT documented in this encounter Results * SURGICAL PATHOLOGY REPORT (05/16/2010 3:48 PM EDT) Surgical Pathology Report ? [facility] ? Provider: ?? CAITLYN HOANG ? Pt. Name: ?? RUTHANN RUFFIN ? Acc #: ?[id number] ?Pt. ? Col Date: ?? 05/16/2010 ? [...] tissues. ? Sections/Proces sing: ??(T1) ??vms/SHB ? [facility] ? Provider: ?? CAITLYN HOANG ? Pt. Name: ?? RUTHANN RUFFIN ? Acc #: ?[id number] ?Pt. ? Col Date: ?? 05/16/2010 ? [...] PM EDT Caitlyn Hoang MD PATHOLOGY/CYTOLOGY O CHARITY LAXMI MERCADO * UPPER GI ENDOSCOPY (05/16/2010 1:38 PM EDT) UPPER GI ENDOSCOPY [facility] Endoscopy Patient Name: Ruthann Ruffin ? Procedure Date: 05/16/2010 01:38:29 PM ? Date of : 1955 ? Age: 55 ? Procedure: ? Upper GI endoscopy Indications: ? Dyspepsia, Dysphagia, reflux ? symptoms, globus; possible food ? allergies Patient Profile: ? see consult note Providers: ? Caitlyn Hoang MD, Bear Price, ? RN, Sadaf Galicia, Cosmetics Counter Manager Referring : ?Marianna Garcia MD Requesting Provider: Dr. Ready Medicines: ? Midazolam 3 mg IV, Fentanyl [...] Active and Recently Administered Medications Care Teams Hat And Cap Drying Room Attendant Relationship Specialty Start Date End Date Marianna Garcia MD HOSPITALIST SERVICES [address] [place] [address] [place] [address] PCP - General 01/09/10 09/20/13 documented as of this encounter
--- OUTSIDE RECORDS SUMMARY | 2024-03-04 21:51 | XMS_ITS | Encounter Summary ---
Author Organization [facility] [place] [address] Care Team Providers Care Medical Collections Name Role Phone Marianna Garcia MD Primary Care Provider [phone] Encounter Details Date Type Department Care Team (Late st Contact Info) Description 03/13/2010 10:00 AM EST Office [place] [phone] Marcio Franklin MD Discharge Disposition: Home Social [...] AM EST Office Visit Audiology at [address] [phone] Anna Hernandez, PhD [facility] [place] [address] 08/03/2024 10:00 AM EDT [place] [address] Deborah Richardson APRN [facility] [place] [address] documented as of this encounter Visit Diagnoses Not on filedocumented in this encounter Care Teams Medical Collections Relationship Specialty Start Date End Date Marianna Garcia MD HOSPITALIST SERVICES [address] [place] [address] [place] [address] PCP - General 01/09/10 09/20/13 documented as of this encounter
--- OUTSIDE RECORDS SUMMARY | 2024-03-04 21:51 | XMS_ITS | Encounter Summary ---
Author Organization [facility] [place] [address] Care Team Providers Care Inspector Final Assembly Mechanical Name Role Phone Christel Arndt Primary Care Provider Encounter Details Date Type Department Care Team (Late st Contact Info) Description 05/16/2010 Orders [place] [phone] Marcio Franklin MD Social History Tobacco Use [...] AM EST Office Visit Audiology at [address] [phone] Anna Hernandez, PhD [facility] [place] [address] 08/03/2024 10:00 AM EDT [place] [phone] Deborah Richardson APRN [facility] [place] [address] documented as of this encounter Procedures Procedure Name Priority Date/Time Associated Diagnosis Comments SURGICAL PATHOLOGY REPORT Routine 05/16/2010 3:48 PM EDT documented in this encounter Results * Surgical Pathology Report (05/16/2010 3:48 PM EDT) Surgical Pathology Report [id number] ? Location: 4T The signing pathologist has [...] BJM 05/23/10 Verified by: ? Richie CADE, [facility] ?Pathologist ?(Electronic Signature) The attending pathologist whose signature appears on this report has reviewed all diagnostic slides and has edited the gross and/or microscopic portion of the report in rendering the final pathologic diagnosis. LAXMI CABRERAEDDIE 05/16/2010 3:48 PM EDT Marcio Franklin MD PATHOLOGY/CYTOLOGY O CHARITY Performing Organization Address City/State/[facility] Co de Phone Number LAXMI MERCADO documented in this encounter Visit Diagnoses Not on filedocumented in this encounter Care Teams Inspector Final Assembly Mechanical Relationship Specialty Start Date End Date Christel Arndt [address] [place] [address] PCP - General Family Medicine 06/28/22 documented as of this encounter
--- OUTSIDE RECORDS SUMMARY | 2024-03-04 21:51 | XMS_ITS | Encounter Summary ---
Author Organization [facility] [place] [address] Care Team Providers Care Sheeter Helper Name Role Phone Marianna Garcia MD Primary Care Provider [phone] Reason for Visit * Reason Onset Date Comments Questions 05/22/2010 Encounter Details Date Type Department Care Team (Late st Contact Info) Description 05/22/2010 Telephone [place] [phone] Marcio Franklin MD Questions Social History Tobacco Use Types Packs/Day [...] AM EST Office Visit Audiology at [address] [phone] Anna Hernandez, PhD [facility] [place] [address] 08/03/2024 10:00 AM EDT Office [place] [phone] Deborah Richardson [facility] [place] [address] documented as of this encounter Visit Diagnoses Not on filedocumented in this encounter Care Teams Sheeter Helper Relationship Specialty Start Date End Date Marianna Garcia MD HOSPITALIST SERVICES [address] [place] [address] [place] [address] PCP - General 01/09/10 09/20/13 documented as of this encounter
--- OUTSIDE RECORDS SUMMARY | 2024-03-04 21:51 | XMS_ITS | Encounter Summary ---
Author Organization [facility] [place] [address] Care Team Providers Care Straddle Bug Operator Name Role Phone Marianna Garcia MD Primary Care Provider Encounter Details Date Type Department Care Team (Late st Contact Info) Description 05/23/2010 9:00 AM EDT - 05/23/2010 9:05 AM EDT Hospital Encounter [place] [address] Social History Tobacco Use Types [...] AM EST Office Visit Audiology at [address] [phone] Anna Hernandez, PhD [facility] [place] [address] 08/03/2024 10:00 AM EDT [place] [address] Deborah Richardson APRN [facility] [place] [address] documented as of this encounter Visit Diagnoses Not on filedocumented in this encounter Care Teams Straddle Bug Operator Relationship Specialty Start Date End Date Marianna Garcia MD HOSPITALIST SERVICES [address] [place] [address] [place] [address] PCP - General 01/09/10 09/20/13 documented as of this encounter
--- OUTSIDE RECORDS SUMMARY | 2024-03-04 21:51 | XMS_ITS | Encounter Summary ---
Author Organization Formerly [facility] [place] [address] Care Team Providers Care Freight Air Brake Fitter Name Role Phone Marianna Garcia MD Primary Care Provider [phone] Reason for Visit * Reason Onset Date Comments Abnormal Lab 11/11/2012 Encounter Details Date Type Department Care Team (Late st Contact Info) Description 11/11/2012 Telephone [place] [address] Devin Alas MD [facility] [place] [address] Abnormal Lab Social History Tobacco Use Types [...] Contact: Please call with lab results Morelia Cano called and left the patient a message. I also wrote her a letter with her lab results. documented in this encounter Plan of Treatment Upcoming Encounters Date Type Department Care Team (Late st Contact Info) Description 03/16/2024 10:15 AM EST Office Visit Audiology at [address] [phone] Anna Hernandez, PhD [facility] [place] [address] 08/03/2024 10:00 AM EDT Office [place] [phone] Deborah Richardson RESP THER [facility] [place] [address] documented as of this encounter Visit Diagnoses Not on filedocumented in this encounter Care Teams Freight Air Brake Fitter Relationship Specialty Start Date End Date Marianna Garcia MD HOSPITALIST SERVICES [address] [place] [address] [place] [address] PCP - General 01/09/10 09/20/13 documented as of this encounter
--- OUTSIDE RECORDS SUMMARY | 2024-03-04 21:51 | XMS_ITS | Encounter Summary ---
Author Organization Formerly [facility] [place] [address] Care Team Providers Care Head Golf Coach Name Role Phone Marianna Garcia MD Primary Care Provider [phone] Encounter Details Date Type Department Care Team (Late st Contact Info) Description 05/29/2010 Abstract [place] [phone] Marcio Franklin MD Social History Tobacco Use [...] AM EST Office Visit Audiology at [address] [phone] Anna Hernandez, PhD [facility] [place] [address] 08/03/2024 10:00 AM EDT [place] [phone] Deborah Richardson APRN [facility] [place] [address] documented as of this encounter Visit Diagnoses Not on filedocumented in this encounter Care Teams Head Golf Coach Relationship Specialty Start Date End Date Marianna Garcia MD HOSPITALIST SERVICES [address] [place] [address] [place] [address] PCP - General 01/09/10 09/20/13 documented as of this encounter
--- OUTSIDE RECORDS SUMMARY | 2024-03-04 21:51 | XMS_ITS | Encounter Summary ---
Author Organization [facility] [place] [address] Care Team Providers Care Bread Stacker Name Role Phone Marianna Skelton MD Primary Care Provider [phone] Reason for Visit * Reason Comments Chronic Kidney Disease Encounter Details Date Type Department Care Team (Latest Contact Info) Description 08/19/2011 9:15 AM EDT Office Visit Nephrology [place] [address] Tai Martinez MD Renal insufficiency (Primary Dx) Discharge Disposition: [...] Nephrology Clinic New Patient Visit Ruthann Wolf [id number] ID: 56 y.o. old female seen [...] Work History and Exposures: Currently works doing [employer] - no known toxic exposures Smoking History: Never OTCs: APAP, Hx of NSAID use though stopped years ago Tries to exercise daily Unaware if born prematurely or of low weight Review of Systems: System Abnormalities Constitutional Chronically tired, and no appetite changes Eye No vision changes, wears glasses ENT Pending visit with forestry instructor for evaluation of R ear hearing, has [...] to: MARIANNA SKELTON MD [address] [facility] [address] documented in this encounter Plan of Treatment Upcoming Encounters Date Type Department Care Team (Late st Contact Info) Description 03/16/2024 10:15 AM EST Office Visit Audiology at [address] [address] Anna Hernandez, PhD [facility] [place] [address] 08/03/2024 10:00 AM EDT Office [place] [phone] Deborah Richardson, [facility]UL[facility]ION [facility] [place] [address] documented as of this encounter Procedures Procedure [...] AM EDT Renal insufficiency COMPREHENSIVE METABOLIC PANEL Routine 08/19/2011 10:55 AM EDT Renal insufficiency URINE EOSINOPHIL Routine 08/19/2011 9:34 AM EDT Renal insufficiency PROTEIN/CREATININE RATIO, URINE Routine 08/19/2011 9:34 AM EDT Renal insufficiency PROTEIN ELECTROPHORESIS, URINE, RANDOM Routine 08/19/2011 9:34 AM EDT Renal insufficiency documented in this encounter Results * (ABNORMAL) DIFFERENTIAL, AUTOMATED (08/19/2011 10:55 AM EDT) Neutrophil % 41.4 34.0 - 71.0 % CERNER MILLENNIUM Neutrophil Absolute 1.96 1.50 - 6.30 x10(3)/mc L CERNER MILLENNIUM Lymph % 37.8 19.0 - 53.0 % CERNER MILLENNIUM Lymphocytes Abs 1.8 1.0 - 3.6 x10(3)/mc L CERNER MILLENNIUM Monocyte % 12.0 4.0 - 13.0 % CERNER MILLENNIUM Monocyte Abs 0.6 0.2 - 1.0 x10(3)/mc L CERNER MILLENNIUM Eos % 8.4(H) 0.0 - 7.0 % CERNER MILLENNIUM Eosinophils Abs 0.4 0.0 - 0.5 x10(3)/mc L CERNER MILLENNIUM Basophil % 0.4 0.0 - 2.0 % CERNER MILLENNIUM Baso Absolute 0.0 0.0 - 0.2 x10(3)/mc L CERNER [...] Immature Gran Absolute 0.00 0.00 - 0.05 x10(3)/mc L CERNER MILLENNIUM Blood specimen (specimen) 08/19/2011 10:55 AM EDT 08/19/2011 10:58 AM EDT Tai Martinez MD HEMATOLOGY ORDERABLE S CERNER MILLENNIUM * Protein Electrophoresis, serum (08/19/2011 10:55 AM EDT) Total Prot Electrophoresis 7.0 6.1 - 8.0 gm/dL CERNER MILLENNIUM Albumin Electrophoresis 4.41 3.60 - 6.00 gm/dL CERNER MILLENNIUM Alpha 1 Globulin 0.22 0.10 - 0.30 gm/dL CERNER MILLENNIUM Alpha 2 Globulin 0.76 0.40 - 0.90 gm/dL CERNER MILLENNIUM [...] Lab Tai Martinez MD CHEMISTRY ORDERABLES LAXMI QUEENIUM * CBC (with Diff) (08/19/2011 10:55 AM EDT) White Blood Cell 4.7 4.0 - 10.0 x10(3)/mcL CERNER MILLENNIUM Red Blood Cell 4.64 3.93 - 5.22 x10(6)/mcL CERNER MILLENNIUM Hemoglobin 14.1 11.2 - 15.7 gm/dL CERNER MILLENNIUM Hematocrit 40.9 34.0 - 45.0 % CERNER MILLENNIUM Mean Cell Volume 88.1 79.0 - 94.0 fL CERNER MILLENNIUM Mean Cell Hemoglobin 30.4 26.6 - 32.2 pg CERNER MILLENNIUM Mean Cell Hemoglobin Concentration 34.5 32.0 - 36.5 gm/dL CERNER MILLENNIUM Platelet 209 145 - 370 x10(3)/mcL CERNER MILLENNIUM RDW Standard Deviation 42.3 35.0 - 46.0 fL CERNER MILLENNIUM RDW coefficient of variation 13.2 10.9 - 14.4 % CERNER MILLENNIUM Mean Platelet Volume 12.0 9.0 - 12.0 fL CERNER MILLENNIUM Blood specimen (specimen) 08/19/2011 10:55 AM EDT 08/19/2011 10:58 AM EDT Narrative Resulting Agency Comment Spec In Lab Tai Martinez MD HEMATOLOGY ORDERABLE S LAXMI MERCADO * Vitamin D, dihydroxy 1,25 (08/19/2011 10:55 AM EDT) Vit D 1,25 Dihydroxy (JUNE) 49 18 - 78 pg/mL CERNER MILLENNIUM Comment: Test Performed by: [address] [address] [employer]termin[employer] Hel[employer] Termite: Gilmar Spence III, M.D. Blood specimen (specimen) 08/19/2011 10:55 AM EDT 08/19/2011 3:57 PM EDT Narrative Resulting Agency Comment Spec In Lab Tai Martinez MD LAB SEND OUT ORDERAB LES Performing Organization Address [facility] Co de Phone Number [facility] * VIT D Total Evaluation (08/19/2011 10:55 AM EDT) Vitamin D Total 25 OH 47 30 - 100 ng/mL [facility] Comment: Deficient <10 ng/mL Insufficient 10 to [...] Hydroxy assays are being analyzed by the [facility] Chemistry Laboratory. ??There is NO CHANGE in units. ??Please contact the chemistry laboratory at [phone] with questions. Blood specimen (specimen) 08/19/2011 10:55 AM EDT 08/19/2011 10:58 AM EDT Narrative Resulting Agency Comment Spec In Lab Tai Martinez MD CHEMISTRY ORDERABLES Performing Organization Address [facility] Co de Phone Number [facility] * PTH (08/19/2011 10:55 AM EDT) Parathyroid Hormone 49 15 - 65 pg/mL [facility] Blood specimen (specimen) 08/19/2011 10:55 AM EDT 08/19/2011 10:58 AM EDT Narrative Resulting Agency Comment Spec In Lab Tai Martinez MD CHEMISTRY ORDERABLES CERNER MILLENNIUM * (ABNORMAL) Comprehensive metabolic panel (non-fasting) (08/19/2011 10:55 AM EDT) Glucose 81 60 - 199 mg/dL CERNER MILLENNIUM Comment:Diabetes: >=200 mg/d L plus symptoms Blood Urea Nitrogen 21(H) 8 - 18 mg/dL CERNER MILLENNIUM Creatinine 1.37(H) 0.70 - 1.20 mg/dL CERNER MILLENNIUM Comment: Please note that the pediatric reference intervals supplied above were not validated at [facility]. Results from pediatric patients [...] 104 98 - 107 mmol/L CERNER MILLENNIUM Carbon Dioxide 27 22 - 31 mmol/L CERNER MILLENNIUM Anion Gap 10 5 - 15 mmol/L CERNER MILLENNIUM Calcium 9.3 8.5 - 10.5 mg/dL CERNER MILLENNIUM Protein, Total 7.2 6.4 - 8.3 gm/dL CERNER MILLENNIUM Albumin 4.4 3.2 - 5.2 gm/dL CERNER MILLENNIUM Aspartate Aminotransferase 25 0 - 30 unit/L CERNER MILLENNIUM Alanine Aminotransferase 25 0 - 30 unit/L CERNER MILLENNIUM Alkaline Phosphatase 85 40 - 104 unit/L CERNER MILLENNIUM Bilirubin, Total 0.5 0.2 - 1.3 mg/dL CERNER MILLENNIUM Bilirubin, Direct 0.1 0.0 - 0.3 mg/dL CERNER MILLENNIUM Est Glomerular Filtration Rate 40(L) >=60 CERNER MILLENNIUM Comment: The National [...] Lab Tai Martinez MD [facility]MISTRY ORDERABLES [facility] * Urine Eosinophil (08/19/2011 9:34 AM EDT) Eosinophils, Urine See Comment 0 - 0 CERNER MILLENNIUM Comment: TOTAL NUMBER OF LEUKOCYTES COUNTED = 77. NUMBER OF EOSINOPHILS = NONE Total Urine WBC 1 0 - 5 /HPF CERNER MILLENNIUM Urine specimen (specimen) 08/19/2011 9:34 AM EDT 08/19/2011 10:57 AM EDT Narrative Resulting Agency Comment Spec In Lab Tai Martinez MD URINE ORDERABLES Performing Organization Address City/[facility] Co de Phone Number CERNER MILLENNIUM * Protein Electrophoresis, urine, random (08/19/2011 9:34 AM EDT) Protein, Urine <6 0 - 12 mg/dL CERNER MILLENNIUM U Albumin See Note % total CERNER MILLENNIUM Comment: Total Protein concentration too low to fractionate using current electrophoretic technique. Globulin, Urine Not Applicable % total CERNER MILLENNIUM M1 Band, Urine Not Applicable None Detected % total CERNER MILLENNIUM U Scan Not Applicable CERNER MILLENNIUM Urine specimen (specimen) 08/19/2011 9:34 AM EDT 08/19/2011 10:57 AM EDT Narrative Resulting Agency Comment Spec In Lab Tai Martinez MD URINE ORDERABLES Performing Organization Address [facility] de Phone Number CERNER MILLENNIUM * Protein/Creatinine Ratio, urine (08/19/2011 9:34 AM EDT) Creatinine, Urine 22 mg/dL CERNER MILLENNIUM Protein, Urine <6 0 - 12 mg/dL CERNER MILLENNIUM Protein / Creatinine Ratio, Urine <0.1 ratio CERNER MILLENNIUM Urine specimen (specimen) 08/19/2011 9:34 AM EDT 08/19/2011 10:57 AM EDT Narrative Resulting Agency Comment Spec In Lab Tai Martinez MD URINE ORDERABLES Performing Organization Address [facility] Co de Phone Number CERNER RICKENNIUM documented in this encounter Visit Diagnoses Diagnosis Renal insufficiency- Primary Unspecified disorder of kidney and ureter documented in this encounter Care Teams Bread Stacker Relationship Specialty Start Date End Date Marianna Skelton MD HOSPITALIST SERVICES [address] [place] [address] PCP - General 01/09/10 09/20/13 documented as of this encounter
--- OUTSIDE RECORDS SUMMARY | 2024-03-04 21:51 | XMS_ITS | Encounter Summary ---
Author Organization [facility] [place] [address] Care Team Providers Care Glue Jointer Feeder Name Role Phone Kristen Skelton MD Primary Care Provider [phone] Reason for Visit * Reason Comments Chronic Kidney Disease Encounter Details Date Type Department Care Team (Late st Contact Info) Description 09/16/2012 10:30 AM EDT Follow-Up Nephrology [place] [address] Devin Myrick MD [facility] [place] [address] HTN (hypertension) (Primary Dx); CKD (chronic kidney [...] 10:46 AM EDT Nephrology/Hypertension Clinic Follow-up Note [id number] ID: 57 y.o.year-old female for follow up [...] had an US inthe past year at [facility] but is not sure and does not [...] and 24 hour urine were done at [facility] but I can't locate those results in [...] given her a lab slip for a MOTOR REBUILDER which she wants to have done locally. [...] CC: KRISTEN SKELTON MD [address] [facility] [address] documented in this encounter Plan of Treatment Upcoming Encounters Date Type Department Care Team (Late st Contact Info) Description 03/16/2024 10:15 AM EST Office Visit Audiology at [address] [address] Anna Hernandez, PhD [facility] [place] [address] 08/03/2024 10:00 AM EDT Office [place] [address] Deborah Richardson APRN [facility] [place] [address] documented as of this encounter Visit Diagnoses Diagnosis HTN (hypertension)- Primary Unspecified essential hypertension CKD (chronic kidney disease) Chronic kidney disease, unspecified documented in this encounter Care Teams Glue Jointer Feeder Relationship Specialty Start Date End Date Kristen Skelton MD HOSPITALIST [facility] [address] [place] [address] [place] [address] PCP - General 01/09/10 09/20/13 documented as of this encounter
== END 2024-03-04 21:46 | disposition home or self-care (01) ==
LOC: NCHCN 21:45
PROVIDERS: PCP Family Medicine; Visit Provider Nurse Practitioner Family
DX: R35.0 Frequency of micturition (principal); R82.89 Other abnormal findings on cytological and histological examination of urine
CPT/HCPCS: 81003; 81015

== ENCOUNTER 2024-03-18 19:09 | Outpatient (REF) | payer MEDICARE, BC, SELFPAY ==
--- NOTE | 2024-03-18 09:45 | SKI_PTH ---
PATIENT: Ruthann Guido LOC: [facility] U#:[id number] AGE/SX: 69/F ROOM: RE03/18/[address]: Christel Arndt : 1955 BED: DIS: 03/18/2024 SPEC #: [id number] RECD: 03/19/24 10:26 STATUS: TORRI REJenny #: [id number] ZAID: 03/18/24 09:[address]: Christel Arndt DEPT: Surgical Specimen RECD BY: Barb Baptiste ENTERED: 03/19/24 10:27 SP TYPE: RODO HANKINS DR: Kaylene Pinedo V Tissues: 1 - SKIN BIOPSY(SHAVE/PUNCH) Procedures: SKIN LEVEL 4 SPECIAL STAIN 1 Comments: [id number]
== END 2024-03-18 19:10 | disposition home or self-care (01) ==
LOC: NCHCN 19:09
PROVIDERS: PCP Family Medicine; Visit Provider Nurse Practitioner Family
DX: L30.8 Other specified dermatitis (principal)
CPT/HCPCS: 88305; 88312

== ENCOUNTER 2024-05-21 14:34 | Outpatient (REF) | payer MEDICARE, BC, SELFPAY ==
[2024-05-21 16:39] LABS: Hemoglobin A1C 5.6 % (<5.7)
[2024-05-21 17:04] LABS: Vitamin B12 833 pg/mL (193-986)
== END 2024-05-21 14:35 | disposition home or self-care (01) ==
LOC: NCHCN 14:34
PROVIDERS: PCP Family Medicine; Visit Provider Nurse Practitioner Family
DX: Z00.00 Encounter for general adult medical examination without abnormal findings (principal)
CPT/HCPCS: 82607; 83036

== ENCOUNTER 2024-06-16 18:51 | Outpatient (REF) | payer MEDICARE, BC, SELFPAY | END 2024-06-16 18:52 | disposition home or self-care (01) | LOC: NCHCN 18:51 | PROVIDERS: PCP Family Medicine; Visit Provider Family Medicine | DX: R39.9 Unspecified symptoms and signs involving the genitourinary system (principal) | CPT/HCPCS: 87086 ==

== ENCOUNTER 2024-10-07 17:55 | Outpatient (REF) | payer MEDICARE, BC, SELFPAY ==
[2024-10-07 19:02] LABS: Anion Gap 11.7 mmol/L (3-11); BUN 22 mg/dL (7-18); CO2 25.3 mmol/L (21.0-32.0); Calcium 9.1 mg/dL (8.5-10.1); Chloride 105 mmol/L (98-107); Estimated GFR 40.98 (mL/min/1.73m2); Glucose 88 mg/dL (74-106); Magnesium 2.3 mg/dL (1.8-2.4); Potassium 4.4 mmol/L (3.5-5.1); Sodium 142 mmol/L (136-145)
[2024-10-08 18:43] LABS: HBs Antibody, Quant <3.1 mIU/mL (See Note); Hepatitis B Surface Ab Negative (See Note)
[2024-10-08 19:26] LABS: Hep A Total Ab w Rflx IgM Negative (Negative)
[2024-10-08 19:28] LABS: Hepatitis C Ab w Rflx HCV PCR Negative (Negative)
== END 2024-10-07 17:56 | disposition home or self-care (01) ==
LOC: NCHCN 17:55
PROVIDERS: PCP Family Medicine; Visit Provider Nurse Practitioner Family
DX: R20.2 Paresthesia of skin (principal); Z78.9 Other specified health status; Z00.00 Encounter for general adult medical examination without abnormal findings
CPT/HCPCS: 80048; 86706; 86709; 86803; 83735